=== PATIENT | female | born 1940 | race Caucasian/White ===

== ENCOUNTER 2022-03-21 14:56 | Inpatient (IN) ==
[2022-03-21] MEDS ORDERED: ONDANSETRON INJ 2 MG/ML 2 ML VIAL ONE (15:10)
--- NOTE | 2022-03-21 15:28 | Emergency Department Note ---
Impression & Plan Weakness, Abdominal pain, Confusion, Hypomagnesemia, Nausea & vomiting ED Provider Note Provider: William Whelan MD DATE OF SERVICE: 03/21/2022 CHIEF COMPLAINT: Abdominal pain HISTORY OF PRESENT ILLNESS: Patient is a 82-year-old female with a past medical history including hypertension, CKD, GERD, chronic lung disease, hypothyroidism, diverticulitis presenting today via ambulance from her home. EMS reports there called for difficulty breathing but the patient states she was not feeling that short of breath. EMS states the patient was less responsive for them initially but is now talking more clearly and looking better and was not as pale and diaphoretic as she was initially when they encountered her. Patient states she did not feel well overnight she is generally ill and weak. States she began to feel nauseous and did vomit for EMS and steals a little bit nauseous here. Patient denies any chest pain. She denies any falls. No recent sick contacts reported. Denies leg swelling. Some tenderness in the mid to lower abdomen. Patient states her abdomen feels bloated. Denies headache or dizziness. REVIEW OF SYSTEMS: A total of 10 review of systems was obtained and negative except as stated above in the HPI. PAST MEDICAL HISTORY: As noted above MEDICATIONS: Reviewed home medications SOCIAL HISTORY: and lives alone PHYSICAL EXAM: GENERAL: alert and oriented in no acute distress on stretcher although fatigued appearing Head: normocephalic and atraumatic EYES: No injection, discharge or icterus. PERRL NECK: Trachea midline. Supple. ENT: Mucous membranes pink and moist. LUNGS: Airway patent. No retractions. Breath sounds clear HEART: Regular rate and rhythm. No chest wall tenderness ABDOMEN: Soft with mild mid abdominal discomfort to palpation. No peritonitis. BACK: No bilateral flank tenderness. SKIN: Acyanotic, warm, still mildly damp/diaphoretic EXTREMITIES: Without swelling, tenderness or deformity NEUROLOGICAL: No focal deficits. No aphasia. No facial droop or slurred speech. Normal strength and tone in the extremities. Sensation to gross touch normal. Ambulatory. EK bpm sinus rhythm first-degree AV block. No PVC. No acute ST segment elevation with anterior and inferior T wave inversions. Right bundle branch block is present. QTc 520. In comparison previous from the [facility] on November 04 of this year increased heart rate with anterior T wave inversions now present. CONTINUOUS CARDIAC MONITORING: was ordered and showed a heart rate of 70s-80s bpm in normal sinus rhythm Patient's laboratory studies and imaging reviewed. Differential includes Infection, dehydration, metabolic abnormality, hypo/hyperglycemia, electrolyte disturbance, anemia, hypoxia, cardiac sources, intracerebral event, toxicologic, neurologic, as well as other pathologies. IMPRESSION/MEDICAL DECISION MAKING: Patient with some generalized illness of fatigue overnight and developed maybe little bit of shortness of breath lethargy pale diaphoretic stated with some nausea and vomiting and mid abdominal pain. Abdominal pain is mild in the lower to mid abdomen. Not significantly tender. Denies chest pain at any point. No trauma reported. Denies headache. No real focality to her exam just seemed generally weak. Given some nausea medication and did receive some IV fluid prior to arrival as well as aspirin. Some mild lower abdominal pain. We will complete imaging of the abdomen and she does seem to be a bit hypoxic here in the mid 80s. COVID test was sent as well as imaging of the chest. Given that she is so fatigued even though I do not think this is stroke given lack of focality complete a CT of the head for occult processes such as intracranial bleed. Radiology reports reviewed. No signs of significant electrolyte abnormality or renal dysfunction beyond some mild hypomagnesemia. Given IV supplementation. No significant leukocytosis or anemia on blood work. No thyroid dysfunction or evidence of LFT abnormality. No lactate elevation. Procalcitonin undetectably low leans against bacterial infectious source. Negative COVID test. High-sensitivity troponin reports slightly elevated at 17.8. Again not having active chest pain. Lipase does return somewhat elevated but patient is not classically giving me the severe abdominal pain that I generally see with pancreatitis although she has had some nausea. CT of the head without acute abnormality noted. Chest x-ray reports question some mild pulmonary vascular congestion hiatal hernia. CTs of the chest and abdomen pelvis per radiology with mild dilation of ascending thoracic or to 4 cm but no dissection. Some question of bibasilar pneumonitis versus atelectasis. No findings concerning for bowel obstruction at the hernia or diverticulitis on the imaging per radiology. Exquisitely tender abdomen I doubt this is strangulated. They question possibly a small colovaginal fistula but not sure this is any bearing to her current illness. She does have some renal cysts likely versus lesions as well as some stenosis of the celiac artery but no significant finding to explain her generalized weakness. CT does not comment on any inflammation of the pancreas to correspond with the lipase elevation. Patient does again require little bit oxygen supplementation at this time which is atypical for her at rest. Still having weakness and intermittent nausea. Given this fact she lives alone with her age and unclear etiology feel that further observation is indicated. Patient a little more confused with difficulty getting out of full thoughts and with her memory on reassessment. Family at bedside states this has been on and off for last several days this has happened over the last several months intermittently. She has not previously talked to her doctor about this. Patient was in agreement with the plan to stay for further assessment. Hospitalist contacted. DIAGNOSIS: Weakness, nausea and vomiting, hypomagnesemia, mild hypoxia, confusion, elevated lipase. DISPOSITION: Hospitalist will evaluate Patient was agreeable with this plan. Past Med/Surg History Medical History (Updated 03/21/22 @ 17:37 by William Whelan M.D.) Anxiety Bilateral cataracts Chronic kidney disease Chronic obstructive pulmonary disease Deep vein thrombosis 2011 after knee replacement--no longer on blood thinners Depression GERD (gastroesophageal reflux disease) Gout Hypertension Hypothyroidism Nocturnal hypoxia reason for oxygen On home oxygen therapy 2L hs n/c Spinal stenosis Surgical History (Updated 11/15/18 @ 12:16 by Deanna Adam RN) History of arthroscopy of left knee History of bilateral tubal ligation History of bowel resection History of carpal tunnel release of both wrists History of cholecystectomy History of colonoscopy History of esophagogastroduodenoscopy (EGD) History of tonsillectomy History of tooth extraction all teeth removed History of total abdominal hysterectomy and bilateral salpingo-oophorectomy History of total left knee replacement (TKR) Status post correction of deviated nasal septum Family History Other No family history of adverse response to anesthesia Social History Smoking Status: Never smoker Second Hand Exposure: Yes ( smoked); Hx Alcohol Use: No Hx Substance Use: No Preferred Language: Romanian Communication Ability: Effective [place] Hand Required: No Beliefs That Will Affect Care: None Current Living Situation: Spouse Feels Safe at Home: Yes Assistive Devices: Denture - Upper, Denture - Lower, Oxygen - at Night and Walker Allergies Allergies Allergy/AdvReac Type Severity Reaction Status Date / Time azathioprine Allergy Intermediate HIVES Verified 03/21/22 17:48 gabapentin Allergy Intermediate hives Verified 03/21/22 17:48 hydroxychloroquine Allergy Intermediate HIVES Verified 03/21/22 17:48 ibuprofen Allergy Intermediate HIVES Verified 03/21/22 17:48 methotrexate Allergy Intermediate hives Verified 03/21/22 17:48 minocycline Allergy Intermediate Hives Verified 03/21/22 17:48 NSAIDS (Non-Steroidal Allergy Intermediate Hives Verified 03/21/22 17:48 Anti-Inflamma phenol Allergy Intermediate hives Verified 03/21/22 17:48 risedronate sodium Allergy Intermediate HIVES Verified 03/21/22 17:48 doxepin Allergy Mild HIVES Verified 03/21/22 17:48 leflunomide Allergy Mild HIVES Verified 03/21/22 17:48 sulfasalazine Allergy Mild HIVES Verified 03/21/22 17:48 Tetracyclines Allergy Mild HIVES Verified 03/21/22 17:48 hydromorphone AdvReac Intermediate hallucinate Verified 03/21/22 17:48 couldn't walk or talk teriparatide AdvReac Intermediate MALAISE, Verified 03/21/22 17:48 LOWER LEG EDEMA AMINOQUINOLINE Allergy Intermediate HIVES--PER Uncoded 03/21/22 17:48 GMG Home Meds Home Medications Medication Instructions Recorded Confirmed Lactobacillus acidophilus 1 1 tab PO QAM 11/15/18 11/15/18 billion cell tablet albuterol sulfate 90 mcg/actuation 2 puff inhalation Q4 PRN Shortness 11/15/18 11/15/18 aerosol inhaler (Ventolin HFA) Of Breath amlodipine 5 mg tablet 5 mg PO QAM 11/15/18 11/22/18 ascorbic acid (vitamin C) 500 mg 500 mg PO QAM 11/15/18 11/22/18 tablet (Vitamin C) aspirin 81 mg tablet,delayed 81 mg PO QAM 11/15/18 11/22/18 release calcium carbonate 600 mg-vitamin 1 tab PO BID 11/15/18 11/22/18 D3 5 mcg (200 unit) tablet (Calcium 600 + D(3)) diphenhydramine HCl 25 mg capsule 25 mg PO HS sleep 11/15/18 11/22/18 (Benadryl) duloxetine 30 mg capsule,delayed 30 mg PO QAM 11/15/18 11/22/18 release ergocalciferol (vitamin D2) 10 mcg 2 tab PO QAM 11/15/18 11/22/18 (400 unit) tablet esomeprazole magnesium 40 mg 40 mg PO QAM 11/15/18 11/22/18 capsule,delayed release fluticasone 250 mcg-salmeterol 50 1 inh inhalation BID 11/15/18 11/22/18 mcg/dose blistr powdr for inhalation (Advair Diskus) hydralazine 25 mg tablet 25 mg PO TID 11/15/18 11/22/18 levothyroxine 175 mcg tablet 175 mcg PO QAM 11/15/18 11/22/18 melatonin 5 mg tablet 5 mg PO HS 11/15/18 11/22/18 metoprolol tartrate 25 mg tablet 12.5 mg PO BID 11/15/18 11/22/18 montelukast 10 mg tablet 10 mg PO HS 11/15/18 11/22/18 (Singulair) pregabalin 100 mg capsule (Lyrica) 100 mg PO QAM 11/15/18 11/22/18 pregabalin 100 mg capsule (Lyrica) 200 mg PO QPM 11/15/18 11/22/18 vit C 50 mg-E 15 unit-zinc cit 4.5 1 tab PO QAM 11/15/18 11/22/18 mg-lutein 2.5 mg-zeaxan chew [facility] Results & Data (ED) Vital Signs Vital Signs - 24 hr 03/21/22 15:20 03/21/22 15:05 03/21/22 15:30 Temperature 36.3 C L Temperature Source Oral Pulse Rate 110 H 88 85 Pulse Rate from SpO2 Sensor 84 Respiratory Rate 20 14 14 Respiratory Effort / Characteristics Non-Labored Spontaneous Respiratory Depth Shallow Blood Pressure 169/110 H 208/115 H Blood Pressure Mean 129 146 Pulse Oximetry 86 L 86 L 94 Oxygen Delivery Method Room Air Room Air Nasal Cannula Oxygen Flow Rate 3 Sepsis Recent Fever Within 48 Hours No Sepsis New/Unexplained Change in Mental Status No Sepsis Action Taken by Nursing No Action Required 03/21/22 16:00 03/21/22 16:30 Temperature Temperature Source Pulse Rate 82 84 Pulse Rate from SpO2 Sensor 81 78 Respiratory Rate 16 14 Respiratory Effort / Characteristics Respiratory Depth Blood Pressure Blood Pressure Mean Pulse Oximetry 94 92 Oxygen Delivery Method Oxygen Flow Rate 3 3 Sepsis Recent Fever Within 48 Hours Sepsis New/Unexplained Change in Mental Status Sepsis Action Taken by Nursing Laboratory Data Result diagrams: 03/21/22 15:25 03/21/22 15:25 Lab Results 03/21/22 03/21/22 03/21/22 Range/Units 15:25 15:25 15:25 WBC 5.75 (4.8-10.8) K/ul RBC 4.62 (3.93-5.22) M/uL Hgb 13.5 (12.0-16.0) g/dl POC Hgb (12.0-16.0) g/dl Hct 42.0 (34.1-44.9) % POC Hct (37-47) % MCV 90.9 (80.0-100.0) fL MCH 29.2 (25.0-34.0) pg MCHC 32.1 (32.0-36.0) g/dL RDW Std Deviation 49.5 H (36.4-46.3) fL RDW Coeff of [place]ury 14.9 H (11.5-14.5) % Plt Count 170 (130-400) K/uL MPV 11.9 (9.4-12.3) fL Immature Gran % (Auto) 0.5 % Neut % (Auto) 61.3 % Lymph % (Auto) 19.5 % [place] % (Auto) 10.3 % Eos % (Auto) 7.0 % Baso % (Auto) 1.4 % Neut # (Auto) 3.53 (1.4-6.5) K/uL Lymph # (Auto) 1.12 L (1.2-3.4) K/uL [place] # (Auto) 0.59 (0.24-0.82) K/uL Eos # (Auto) 0.40 (0-0.50) K/uL Baso # (Auto) 0.08 (0-0.2) K/uL Immature Gran # (Auto) 0.03 H (0.00-0.02) K/uL PT Cancelled INR Cancelled POC Sodium (135-144) mmol/L Sodium 142 (136-145) mmol/L POC Potassium (3.3-5.0) mmol/L Potassium 3.6 (3.5-5.1) mmol/L POC Chloride (101-112) mmol/L Chloride 105 (98-107) mmol/L Carbon Dioxide 28 (21-32) mmol/L POC Total CO2 (24-31) mmol/L Anion Gap 9 (3-11) POC Anion Gap (16-25) mmol/L POC BUN (7-18) mg/dl BUN 15 (6-23) mg/dl Creatinine 1.09 (0.6-1.2) mg/dl POC Creatinine (0.6-1.3) mg/dl Est Cr Clr Drug Dosing Not Reportable Est GFR ( Amer) 55.5 ml/min Est GFR (Non-Af Amer) 47.9 ml/min BUN/Creatinine Ratio 13.8 (10-20) Glucose 112 H (70-99(Fasting)) mg/dl POC Glucose (other) (70-99) mg/dl Lactate (0.4-2.0) mmol/L Calcium 9.7 (8.5-10.1) mg/dl POC Ioniz Calcium Diamond (1.12-1.32) mmol/l Magnesium 1.6 L (1.7-2.4) mg/dl Total Bilirubin 0.9 (0.2-1.0) mg/dl AST 13 (13-39) U/L ALT 10 (7-52) U/L Alkaline Phosphatase 83 (34-104) U/L Troponin I High Sens 17.8 H (0-14) pg/ml Total Protein 6.7 (6.0-8.3) gm/dl Albumin 4.1 (3.4-5.0) gm/dl Globulin 2.6 (2.5-4.0) gm/dl Albumin/Globulin Ratio 1.6 (0.9-2) Lipase (11-82) U/L Procalcitonin (0-0.5) ng/ml TSH (0.300-4.500) uIu/ml SARS-CoV-2, RNA, NAAT (NEGATIVE) 03/21/22 03/21/22 03/21/22 Range/Units 15:25 15:25 15:25 WBC (4.8-10.8) K/ul RBC (3.93-5.22) M/uL Hgb (12.0-16.0) g/dl POC Hgb (12.0-16.0) g/dl Hct (34.1-44.9) % POC Hct (37-47) % MCV (80.0-100.0) fL MCH (25.0-34.0) pg MCHC (32.0-36.0) g/dL RDW Std Deviation (36.4-46.3) fL RDW Coeff of [place]ury (11.5-14.5) % Plt Count (130-400) K/uL MPV (9.4-12.3) fL Immature Gran % (Auto) % Neut % (Auto) % Lymph % (Auto) % [place] % (Auto) % Eos % (Auto) % Baso % (Auto) % Neut # (Auto) (1.4-6.5) K/uL Lymph # (Auto) (1.2-3.4) K/uL [place] # (Auto) (0.24-0.82) K/uL Eos # (Auto) (0-0.50) K/uL Baso # (Auto) (0-0.2) K/uL Immature Gran # (Auto) (0.00-0.02) K/uL PT INR POC Sodium (135-144) mmol/L Sodium (136-145) mmol/L POC Potassium (3.3-5.0) mmol/L Potassium (3.5-5.1) mmol/L POC Chloride (101-112) mmol/L Chloride (98-107) mmol/L Carbon Dioxide (21-32) mmol/L POC Total CO2 (24-31) mmol/L Anion Gap (3-11) POC Anion Gap (16-25) mmol/L POC BUN (7-18) mg/dl BUN (6-23) mg/dl Creatinine (0.6-1.2) mg/dl POC Creatinine (0.6-1.3) mg/dl Est Cr Clr Drug Dosing Est GFR ( Amer) ml/min Est GFR (Non-Af Amer) ml/min BUN/Creatinine Ratio (10-20) Glucose (70-99(Fasting)) mg/dl POC Glucose (other) (70-99) mg/dl Lactate 0.9 (0.4-2.0) mmol/L Calcium (8.5-10.1) mg/dl POC Ioniz Calcium Diamond (1.12-1.32) mmol/l Magnesium (1.7-2.4) mg/dl Total Bilirubin (0.2-1.0) mg/dl AST (13-39) U/L ALT (7-52) U/L Alkaline Phosphatase (34-104) U/L Troponin I High Sens (0-14) pg/ml Total Protein (6.0-8.3) gm/dl Albumin (3.4-5.0) gm/dl Globulin (2.5-4.0) gm/dl Albumin/Globulin Ratio (0.9-2) Lipase (11-82) U/L Procalcitonin < 0.05 (0-0.5) ng/ml TSH 0.877 (0.300-4.500) uIu/ml SARS-CoV-2, RNA, NAAT (NEGATIVE) 03/21/22 03/21/22 03/21/22 Range/Units 15:25 15:32 15:50 WBC (4.8-10.8) K/ul RBC (3.93-5.22) M/uL Hgb (12.0-16.0) g/dl POC Hgb 14.6 (12.0-16.0) g/dl Hct (34.1-44.9) % POC Hct 43 (37-47) % MCV (80.0-100.0) fL MCH (25.0-34.0) pg MCHC (32.0-36.0) g/dL RDW Std Deviation (36.4-46.3) fL RDW Coeff of Nury (11.5-14.5) % Plt Count (130-400) K/uL MPV (9.4-12.3) fL Immature Gran % (Auto) % Neut % (Auto) % Lymph % (Auto) % [place] % (Auto) % Eos % (Auto) % Baso % (Auto) % Neut # (Auto) (1.4-6.5) K/uL Lymph # (Auto) (1.2-3.4) K/uL [place] # (Auto) (0.24-0.82) K/uL Eos # (Auto) (0-0.50) K/uL Baso # (Auto) (0-0.2) K/uL Immature Gran # (Auto) (0.00-0.02) K/uL PT INR POC Sodium 143 (135-144) mmol/L Sodium (136-145) mmol/L POC Potassium 3.6 (3.3-5.0) mmol/L Potassium (3.5-5.1) mmol/L POC Chloride 104 (101-112) mmol/L Chloride (98-107) mmol/L Carbon Dioxide (21-32) mmol/L POC Total CO2 27 (24-31) mmol/L Anion Gap (3-11) POC Anion Gap 17.0 (16-25) mmol/L POC BUN 14 (7-18) mg/dl BUN (6-23) mg/dl Creatinine (0.6-1.2) mg/dl POC Creatinine 1.1 (0.6-1.3) mg/dl Est Cr Clr Drug Dosing Est GFR ( Amer) ml/min Est GFR (Non-Af Amer) ml/min BUN/Creatinine Ratio (10-20) Glucose (70-99(Fasting)) mg/dl POC Glucose (other) 119 H (70-99) mg/dl Lactate (0.4-2.0) mmol/L Calcium (8.5-10.1) mg/dl POC Ioniz Calcium Diamond 1.21 (1.12-1.32) mmol/l Magnesium (1.7-2.4) mg/dl Total Bilirubin (0.2-1.0) mg/dl AST (13-39) U/L ALT (7-52) U/L Alkaline Phosphatase (34-104) U/L Troponin I High Sens (0-14) pg/ml Total Protein (6.0-8.3) gm/dl Albumin (3.4-5.0) gm/dl Globulin (2.5-4.0) gm/dl Albumin/Globulin Ratio (0.9-2) Lipase 499 H (11-82) U/L Procalcitonin (0-0.5) ng/ml TSH (0.300-4.500) uIu/ml SARS-CoV-2, RNA, NAAT NEGATIVE (NEGATIVE) 03/21/22 Range/Units 16:18 WBC (4.8-10.8) K/ul RBC (3.93-5.22) M/uL Hgb (12.0-16.0) g/dl POC Hgb (12.0-16.0) g/dl Hct (34.1-44.9) % POC Hct (37-47) % MCV (80.0-100.0) fL MCH (25.0-34.0) pg MCHC (32.0-36.0) g/dL RDW Std Deviation (36.4-46.3) fL RDW Coeff of [place]ury (11.5-14.5) % Plt Count (130-400) K/uL MPV (9.4-12.3) fL Immature Gran % (Auto) % Neut % (Auto) % Lymph % (Auto) % [place] % (Auto) % Eos % (Auto) % Baso % (Auto) % Neut # (Auto) (1.4-6.5) K/uL Lymph # (Auto) (1.2-3.4) K/uL [place] # (Auto) (0.24-0.82) K/uL Eos # (Auto) (0-0.50) K/uL Baso # (Auto) (0-0.2) K/uL Immature Gran # (Auto) (0.00-0.02) K/uL PT 10.9 INR 1.0 POC Sodium (135-144) mmol/L Sodium (136-145) mmol/L POC Potassium (3.3-5.0) mmol/L Potassium (3.5-5.1) mmol/L POC Chloride (101-112) mmol/L Chloride (98-107) mmol/L Carbon Dioxide (21-32) mmol/L POC Total CO2 (24-31) mmol/L Anion Gap (3-11) POC Anion Gap (16-25) mmol/L POC BUN (7-18) mg/dl BUN (6-23) mg/dl Creatinine (0.6-1.2) mg/dl POC Creatinine (0.6-1.3) mg/dl Est Cr Clr Drug Dosing Est GFR ( Amer) ml/min Est GFR (Non-Af Amer) ml/min BUN/Creatinine Ratio (10-20) Glucose (70-99(Fasting)) mg/dl POC Glucose (other) (70-99) mg/dl Lactate (0.4-2.0) mmol/L Calcium (8.5-10.1) mg/dl POC Ioniz Calcium Diamond (1.12-1.32) mmol/l Magnesium (1.7-2.4) mg/dl Total Bilirubin (0.2-1.0) mg/dl AST (13-39) U/L ALT (7-52) U/L Alkaline Phosphatase (34-104) U/L Troponin I High Sens (0-14) pg/ml Total Protein (6.0-8.3) gm/dl Albumin (3.4-5.0) gm/dl Globulin (2.5-4.0) gm/dl Albumin/Globulin Ratio (0.9-2) Lipase (11-82) U/L Procalcitonin (0-0.5) ng/ml TSH (0.300-4.500) uIu/ml SARS-CoV-2, RNA, NAAT (NEGATIVE) Administered Medications Discontinued Medications Magnesium Sulfate/Dextrose (Magnesium Sulfate / D5w) 1 gm in 100 mls @ 200 mls/hr IV Q30M DEBORAH Stop: 03/21/22 17:14 Last Admin: 03/21/22 17:32 Dose: 200 mls/hr Documented By: Infusion: 03/21/22 16:57 Dose: 0 mls/hr Documented By: Admin: 03/21/22 16:25 Dose: 200 mls/hr Documented By: NIKI Ioversol (Optiray 300 500ml) 106 ml IV ONCE ONE Stop: 03/21/22 15:57 Last Admin: 03/21/22 15:56 Dose: 106 ml Documented By: GUNNER Ondansetron HCl (Ondansetron Inj 2 Mg/Ml 2 Ml Vial) Confirm Administered Dose 4 mg .ROUTE .STK-MED ONE Stop: 03/21/22 15:11 Last Admin: 03/21/22 15:30 Dose: 4 mg Documented By: NIKI Imaging Data Radiologist's Impression: Abdomen/Pelvis CTA 03/21/22 15:20 CHEST CTA, ABDOMEN AND PELVIS CTA for AORTIC DISSECTION CT DOSE: 4518.68 mGy.cm HISTORY: Shortness of breath. Vomiting. Lethargy. Atypical chest pain and generalized abdominal pain. TECHNIQUE: Multiaxial CT images of the chest were performed both before and after the intravenous administration of contrast to evaluate the aorta. Multiaxi al CT images of the abdomen and pelvis were also performed following the intravenous administration of contrast. Maximal intensity projection images of the chest, abdomen, and pelvis were also obtained. A dose lowering technique was utilized adhering to the principles of ALARA. COMPARISON STUDY: None. FINDINGS: Chest CTA: Noncontrast imaging through the chest is no evidence for an intramural hematoma within the thoracic aorta. There is mild calcified plaque within the thoracic aorta. There is mild motion artifact. The ascending thoracic aorta measures up to 4 cm in diameter. Mild calcified plaque within the aortic valve. No evidence for an aortic dissection. There is a tortuous distal descending thoracic aorta. The main pulmonary arteries are patent but dilated. The heart is enlarged. There are mitral annulus calcifications also noted. No pleural or pericardial effusions. No mediastinal or hilar lymphadenopathy. Normal caliber esophagus. There is a large hiatus hernia containing the majority of the stomach and pancreatic tail. No suspicious lytic or blastic osseous lesions. No pneumothorax. The central airways are patent. There are low lung volumes. Bibasilar linear and groundglass densities favor atelectasis. A bibasilar pneumonitis could also have a similar appearance but is considered less likely given the low lung volumes. Abdomen/pelvis CTA: No pneumoperitoneum. No pneumatosis. No acute fractures within the visualized osseous structures. Small fat-containing umbilical hernia. There are 2 adjacent large right periumbilical hernias. One of these contains a short segment of the transverse colon. The other hernia contains fat. Mild thickening of the proximal jejunal loops is likely due to underdistention. Otherwise, no bowel wall thickening or obstruction. Colonic diverticulosis. No evidence for acute diverticulitis. There is a possible tiny colovaginal fistula along the left side of the vaginal cuff which extends to the undersurface of the sigmoid colon. This is best seen on images 416 through 422. Bladder wall thickening is likely due to underdistention. Prior hysterectomy. There is mild pelvic floor collapse. The appendix is not identified and may be surgically absent. The gallbladder appears surgically absent. The liver, pancreas, and adrenal glands are unremarkable. Multiple bilateral renal lesions. These demonstrate varying degrees of density and may represent a combination of hyperdense and simple cysts. Dominant hyperdense lesion within the upper pole of the left kidney measures 5 cm. A 1.4 cm indeterminate hypervascular focus within the spleen on image 157 which could represent a splenic lesion. No retroperitoneal lymphadenopathy. No hydronephrosis. Abdominal aorta is normal in caliber with no evidence for dissection. There is mild calcified plaque within the aorta and iliac arteries. No significant stenosis or occlusion within the iliac or visualized femoral arteries. The inferior mesenteric and superior mesenteric arteries are widely patent. 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 No significant stenosis within the bilateral renal arteries. IMPRESSION: 1. No evidence for an aortic dissection. 2. Mild aneurysmal dilatation of the ascending thoracic aorta measuring 4 cm in diameter. 3. Cardiomegaly. 4. Large hiatus hernia. 5. Bibasilar linear groundglass densities favor atelectasis. A bibasilar pneumonitis could also have a similar appearance but is considered less likely given the low lung volumes. 6. Periumbilical hernias, one of which contains a short segment of the transverse colon. However, no evidence for bowel obstruction. 7. Colonic diverticulosis. No evidence for acute diverticulitis. 8. Possible small colovaginal fistula as described above. 9. 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 10. A few bilateral hyperdense renal lesions with the largest on the left measuring 5 cm. These favor hyperdense cyst. However, a follow-up nonemergent renal ultrasound recommended for confirmation. 11. Additional findings as described above. ACT 112: Negative or not required by law. Electronically signed by: Fredis Montes De Oca M.D. 03/21/2022 5:22 PM Chest CTA 03/21/22 15:20 CHEST CTA, ABDOMEN AND PELVIS CTA for AORTIC DISSECTION CT DOSE: 4518.68 mGy.cm HISTORY: Shortness of breath. Vomiting. Lethargy. Atypical chest pain and ge neralized abdominal pain. TECHNIQUE: Multiaxial CT images of the chest were performed both before and after the intravenous administration of contrast to evaluate the aorta. Multiaxial CT images of the abdomen and pelvis were also performed following the intravenous administration of contrast. Maximal intensity projection images of the chest, abdomen, and pelvis were also obtained. A dose lowering technique was utilized adhering to the principles of ALARA. COMPARISON STUDY: None. FINDINGS: Chest CTA: Noncontrast imaging through the chest is no evidence for an intramural hematoma within the thoracic aorta. There is mild calcified plaque within the thoracic aorta. There is mild motion artifact. The ascending thoracic aorta measures up to 4 cm in diameter. Mild calcified plaque within the aortic valve. No evidence for an aortic dissection. There is a tortuous distal descending thoracic aorta. The main pulmonary arteries are patent but dilated. The heart is enlarged. There are mitral annulus calcifications also noted. No pleural or pericardial effusions. No mediastinal or hilar lymphadenopathy. Normal caliber esophagus. There is a large hiatus hernia containing the majority of the stomach and pancreatic tail. No suspicious lytic or blastic osseous lesions. No pneumothorax. The central airways are patent. There are low lung volumes. Bibasilar linear and groundglass densities favor atelectasis. A bibasilar pneumonitis could also have a similar appearance but is considered les s likely given the low lung volumes. Abdomen/pelvis CTA: No pneumoperitoneum. No pneumatosis. No acute fractures within the visualized osseous structures. Small fat-containing umbilical hernia. There are 2 adjacent large right periumbilical hernias. One of these contains a short segment of the transverse colon. The other hernia contains fat. Mild thickening of the proximal jejunal loops is likely due to underdistention. Otherwise, no bowel wall thickening or obstruction. Colonic diverticulosis. No evidence for acute diverticulitis. There is a possible tiny colovaginal fistula along the left side of the vaginal cuff which extends to the undersurface of the sigmoid colon. This is best seen on images 416 through 422. Bladder wall thickening is likely due to underdistention. Prior hysterectomy. There is mild pelvic floor collapse. The appendix is not identified and may be surgically absent. The gallbladder appears surgically absent. The liver, pancreas, and adrenal glands are unremarkable. Multiple bilateral renal lesions. These demonstrate varying degrees of density and may represent a combination of hyperdense and simple cysts. Dominant hyperdense lesion within the upper pole of the left kidney measures 5 cm. A 1.4 cm indeterminate hypervascular focus within the spleen on image 157 which could represent a splenic lesion. No retroperitoneal lymphadenopathy. No hydronephrosis. Abdominal aorta is normal in caliber with no evidence for dissection. There is mild calcified plaque within the aorta and iliac arteries. No significant stenosis or occlusion within the iliac or visualized femoral arteries. The inferior mesenteric and superior mesenteric arteries are widely patent. 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 No significant stenosis within the bilateral renal arteries. IMPRESSION: 1. No evidence for an aortic dissection. 2. Mild aneurysmal dilatation of the ascending thoracic aorta measuring 4 cm in diameter. 3. Cardiomegaly. 4. Large hiatus hernia. 5. Bibasilar linear groundglass densities favor atelectasis. A bibasilar pneumonitis could also have a similar appearance but is considered less likely given the low lung volumes. 6. Periumbilical hernias, one of which contains a short segment of the transverse colon. However, no evidence for bowel obstruction. 7. Colonic diverticulosis. No evidence for acute diverticulitis. 8. Possible small colovaginal fistula as described above. 9. 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 10. A few bilateral hyperdense renal lesions with the largest on the left measuring 5 cm. These favor hyperdense cyst. However, a follow-up nonemergent renal ultrasound recommended for confirmation. 11. Additional findings as described above. ACT 112: Negative or not required by law. Electronically signed by: Fredis Montes De Oca M.D. 03/21/2022 5:22 PM Chest X-Ray 03/21/22 15:20 XR chest 1V portable HISTORY: weakness COMPARISON: Chest 11/07/2011. FINDINGS: There are low lung volumes. The cardiac silhouette is moderately enlarged. This is similar to the prior study. No pneumothorax. Mild diffuse i nterstitial thickening is noted. There is a large hiatus hernia. No pleural effusions. IMPRESSION: 1. Cardiomegaly with mild central pulmonary vascular congestion without overt edema. 2. Large hiatus hernia. ACT 112: Negative or not required by law. Electronically signed by: Fredis Montes De Oca M.D. 03/21/2022 4:[address] 03/21/22 15:[address] DOSE: HISTORY: weakness, vomiting TECHNIQUE: Multiaxial CT images of the head were performed without the use of intravenous contrast. Automated exposure control was utilized for this study. A dose lowering technique was utilized adhering to the principles of ALARA. Comparison: None. Findings: Mild motion artifact. Trace fluid within the left sphenoid sinus. The mastoid air cells are clear. The calvarium and skull base are intact. There is no mass, hematoma, midline shift, acute infarct. White matter hypodensity is nonspecific but suggestive of microvascular ischemic change. The ventricles and sulci demonstrate mild age-related involutional changes. Impression: No acute intracranial abnormality. ACT 112: Negative or not required by law. Electronically signed by: Fredis Montes De Oca M.D. 03/21/2022 3:54 PM Discharge Plan Visit Data Chief Complaint: Abdominal Pain Stated Complaint: AB PAIN ED Provider: William Whelan Discharge Problem: Weakness, Abdominal pain, Confusion, Hypomagnesemia, Nausea & vomiting Patient Disposition: Being Evaluated by Hospitalist Forms Stand Alone Forms: My [facility] Prescriptions Prescriptions: No Action diphenhydramine HCl [Benadryl] 25 mg Capsule 25 mg PO HS levothyroxine 175 mcg Tablet 175 mcg PO QAM fluticasone propion-salmeterol [Advair Diskus] 250-50 mcg/dose Blister With Device 1 inh INHALATION BID ergocalciferol (vitamin D2) 400 unit Tablet 2 tab PO QAM hydralazine 25 mg Tablet 25 mg PO TID amlodipine 5 mg Tablet 5 mg PO QAM calcium carbonate-vitamin D3 [Calcium 600 + D(3)] 600 mg(1,500mg) -200 unit Tablet 1 tab PO BID aspirin 81 mg Tablet,Delayed Release (Dr/Ec) 81 mg PO QAM ascorbic acid (vitamin C) [Vitamin C] 500 mg Tablet 500 mg PO QAM esomeprazole magnesium 40 mg Capsule,Delayed Release(Dr/Ec) 40 mg PO QAM montelukast [Singulair] 10 mg Tablet 10 mg PO HS albuterol sulfate [Ventolin HFA] 90 mcg/actuation Hfa Aerosol Inhaler 2 puff INHALATION Q4 PRN (Reason: Shortness Of Breath) metoprolol tartrate 25 mg Tablet 12.5 mg PO BID duloxetine 30 mg Capsule,Delayed Release(Dr/Ec) 30 mg PO QAM Lactobacillus acidophilus 1 billion cell Tablet 1 tab PO QAM Lyrica 100 mg Capsule 100 mg PO QAM Lyrica 100 mg Capsule 200 mg PO QPM melatonin 5 mg Tablet 5 mg PO HS Ocuvite Eye Health 50 mg-15 unit- 4.5 mg-2.5 mg Tablet,Chewable 1 tab PO QAM Referrals Referrals: Keegan Rapp MD [Outside Practitioners] - : Abdominal pain Qualifiers: Abdominal location: periumbilical Qualified Code(s): R10.33 - Periumbilical pain Nausea & vomiting Qualifiers: Vomiting type: unspecified Qualified Code(s): R11.2 - Nausea with vomiting, unspecified
[2022-03-21 15:40] LABS: Basophils # (auto) 0.08 K/uL (0-0.2); Basophils % (auto) 1.4 %; Hemoglobin 13.5 g/dl (12.0-16.0); Immature Granulocytes # (auto) 0.03 K/uL (0.00-0.02); Immature Granulocytes % (auto) 0.5 %; Lymphocytes # (auto) 1.12 K/uL (1.2-3.4); Lymphocytes % (auto) 19.5 %; Mean Corpuscular Hemoglobin 29.2 pg (25.0-34.0); Mean Corpuscular Hgb Conc 32.1 g/dL (32.0-36.0); Mean Corpuscular Volume 90.9 fL (80.0-100.0); Mean Platelet Volume 11.9 fL (9.4-12.3); Monocytes # (auto) 0.59 K/uL (0.24-0.82); Monocytes % (auto) 10.3 %; Neutrophils # (auto) 3.53 K/uL (1.4-6.5); Neutrophils % (auto) 61.3 %; Platelet Count 170 K/uL (130-400); RDW Coefficient of Variation 14.9 % (11.5-14.5); RDW Standard Deviation 49.5 fL (36.4-46.3); Red Blood Count 4.62 M/uL (3.93-5.22); White Blood Count 5.75 K/ul (4.8-10.8)
[2022-03-21 15:44] LABS: iSTAT Creatinine 1.1 mg/dl (0.6-1.3); iSTAT Hemoglobin 14.6 g/dl (12.0-16.0); iSTAT Ionized Calcium 1.21 mmol/l (1.12-1.32); iSTAT Potassium 3.6 mmol/L (3.3-5.0)
[2022-03-21] MEDS ORDERED: OPTIRAY 300 500mL IV ONE (15:56)
--- NOTE | 2022-03-21 16:02 | CT Scan Report ---
HEAD CT NONCONTRAST CT DOSE: HISTORY: weakness, vomiting TECHNIQUE: Multiaxial CT images of the head were performed without the use of intravenous contrast. A utomated exposure control was utilized for this study. A dose lowering technique was utilized adheri ng to the principles of ALARA. Comparison: None. Findings: Mild motion artifact. Trace fluid within the left sphenoid sinus. The mastoid air cells are clear. The calvarium and skull base are intact. There is no mass, hematoma, midline shift, acute inf arct. White matter hypodensity is nonspecific but suggestive of microvascular ischemic change. The ve ntricles and sulci demonstrate mild age-related involutional changes. Impression: No acute intracranial abnormality. ACT 112: Negative or not required by law. Electronically signed by: Fredis Montes De Oca M.D. 03/21/2022 3:54 PM
[2022-03-21 16:04] LABS: Alanine Aminotransferase 10 U/L (7-52); Albumin Globulin Ratio 1.6 (0.9-2); Albumin Level 4.1 gm/dl (3.4-5.0); Alkaline Phosphatase 83 U/L (34-104); Anion Gap 9 (3-11); Aspartate Aminotransferase 13 U/L (13-39); BUN Creatinine Ratio 13.8 (10-20); Bilirubin,Total 0.9 mg/dl (0.2-1.0); Blood Urea Nitrogen 15 mg/dl (6-23); Calcium 9.7 mg/dl (8.5-10.1); Carbon Dioxide 28 mmol/L (21-32); Chloride 105 mmol/L (98-107); Est GFR (African American) 55.5 ml/min; Est GFR (Non-African American) 47.9 ml/min; Globulin 2.6 gm/dl (2.5-4.0); Glucose 112 mg/dl (70-99(Fasting)); Magnesium 1.6 mg/dl (1.7-2.4); Potassium 3.6 mmol/L (3.5-5.1); Sodium 142 mmol/L (136-145); Total Protein 6.7 gm/dl (6.0-8.3)
--- NOTE | 2022-03-21 16:20 | XRay Report ---
XR chest 1V portable HISTORY: weakness COMPARISON: Chest 11/07/2011. FINDINGS: There are low lung volumes. The cardiac silhouette is moderately enlarged. This is similar to the prior study. No pneumothorax. Mild diffuse interstitial thickening is noted. There is a large hiatus hernia. No pleural effusions. IMPRESSION: 1. Cardiomegaly with mild central pulmonary vascular congestion without overt edema. 2. Large hiatus hernia. ACT 112: Negative or not required by law. Electronically signed by: Fredis Montes De Oca M.D. 03/21/2022 4:18 PM
[2022-03-21] MEDS: MAGNESIUM SULFATE / D5W 1 GM/100 ML BAG IV SCH ×2 (16:25→17:32)
[2022-03-21 16:38] LABS: Prothrombin Time 10.9 Seconds (9.0-12.0)
[2022-03-21 17:14] LABS: Troponin I High Sensitivity 17.8 pg/ml (0-14)
--- NOTE | 2022-03-21 17:24 | CT Scan Report ---
CHEST CTA, ABDOMEN AND PELVIS CTA for AORTIC DISSECTION CT DOSE: 4518.68 mGy.cm HISTORY: Shortness of breath. Vomiting. Lethargy. Atypical chest pain and generalized abdominal pain. TECHNIQUE: Multiaxial CT images of the chest were performed both before and after the intravenous adm inistration of contrast to evaluate the aorta. Multiaxial CT images of the abdomen and pelvis were al so performed following the intravenous administration of contrast. Maximal intensity projection image s of the chest, abdomen, and pelvis were also obtained. A dose lowering technique was utilized adher ing to the principles of ALARA. COMPARISON STUDY: None. FINDINGS: Chest CTA: Noncontrast imaging through the chest is no evidence for an intramural hematoma within the thoracic aorta. There is mild calcified plaque within the thoracic aorta. There is mild motion artif act. The ascending thoracic aorta measures up to 4 cm in diameter. Mild calcified plaque within the a ortic valve. No evidence for an aortic dissection. There is a tortuous distal descending thoracic aor ta. The main pulmonary arteries are patent but dilated. The heart is enlarged. There are mitral annul us calcifications also noted. No pleural or pericardial effusions. No mediastinal or hilar lymphadeno terell. Normal caliber esophagus. There is a large hiatus hernia containing the majority of the stomac h and pancreatic tail. No suspicious lytic or blastic osseous lesions. No pneumothorax. The central a irways are patent. There are low lung volumes. Bibasilar linear and groundglass densities favor atele ctasis. A bibasilar pneumonitis could also have a similar appearance but is considered less likely gi carla the low lung volumes. Abdomen/pelvis CTA: No pneumoperitoneum. No pneumatosis. No acute fractures within the visualized oss eous structures. Small fat-containing umbilical hernia. There are 2 adjacent large right periumbilica l hernias. One of these contains a short segment of the transverse colon. The other hernia contains f at. Mild thickening of the proximal jejunal loops is likely due to underdistention. Otherwise, no bow el wall thickening or obstruction. Colonic diverticulosis. No evidence for acute diverticulitis. Ther e is a possible tiny colovaginal fistula along the left side of the vaginal cuff which extends to the undersurface of the sigmoid colon. This is best seen on images 416 through 422. Bladder wall thicken ing is likely due to underdistention. Prior hysterectomy. There is mild pelvic floor collapse. The ap pendix is not identified and may be surgically absent. The gallbladder appears surgically absent. The liver, pancreas, and adrenal glands are unremarkable. Multiple bilateral renal lesions. These demons trate varying degrees of density and may represent a combination of hyperdense and simple cysts. Ghislaine nant hyperdense lesion within the upper pole of the left kidney measures 5 cm. A 1.4 cm indeterminate hypervascular focus within the spleen on image 157 which could represent a splenic lesion. No retrop eritoneal lymphadenopathy. No hydronephrosis. Abdominal aorta is normal in caliber with no evidence for dissection. There is mild calcified plaque within the aorta and iliac arteries. No significant stenosis or occlusion within the iliac or visuali zed femoral arteries. The inferior mesenteric and superior mesenteric arteries are widely patent. Foc al moderate stenosis at the takeoff of the celiac artery of approximately 60%. No significant stenosi s within the bilateral renal arteries. IMPRESSION: 1. No evidence for an aortic dissection. 2. Mild aneurysmal dilatation of the ascending thoracic aorta measuring 4 cm in diameter. 3. Cardiomegaly. 4. Large hiatus hernia. 5. Bibasilar linear groundglass densities favor atelectasis. A bibasilar pneumonitis could also have a similar appearance but is considered less likely given the low lung volumes. 6. Periumbilical hernias, one of which contains a short segment of the transverse colon. However, no evidence for bowel obstruction. 7. Colonic diverticulosis. No evidence for acute diverticulitis. 8. Possible small colovaginal fistula as described above. 9. 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 10. A few bilateral hyperdense renal lesions with the largest on the left measuring 5 cm. These favor hyperdense cyst. However, a follow-up nonemergent renal ultrasound recommended for confirmation. 11. Additional findings as described above. ACT 112: Negative or not required by law. Electronically signed by: Fredis Montes De Oca M.D. 03/21/2022 5:22 PM
[2022-03-21] MEDS ORDERED: ONDANSETRON INJ 2 MG/ML 2 ML VIAL IV STA (17:36)
[2022-03-21] MEDS ORDERED: LACTATED RINGER'S 1,000 ML IV SCH (18:30)
--- NOTE | 2022-03-21 18:47 | History & Physical Report ---
Date of Service March 21, 2022 Assessment & Plan (1) Gastroenteritis: (2) Hypomagnesemia: (3) Nausea & vomiting: (4) Abdominal pain: (5) Hypoxia: (6) Community acquired pneumonia: Plan Patient is a 82-year-old female with past medical history of hypertension, hyperlipidemia, gout, arthritis, morbid obesity, hiatal hernia, abdominal hernia presents to the ED with complaint of abdominal pain, nausea and vomiting starting in the afternoon. Gastroenteritis Nausea/Vomiting Acute hypoxic respiratory Failure likely due to pneumonia Renal cysts Hypomagnesemia Presents with nausea vomiting and epigastric pain Had leftover burger last night CT abdomen remarkable for hiatal hernia, abdominal hernia with no bowel obstruction, multiple renal cyst Labs remarkable for elevated lipase, magnesium of 1.6 Plan; Will give GI cocktail for gastroenteritis. Also started on Protonix twice daily .started on clear liquid diet and will advance as tolerated. Start on gentle IV hydration; crackles present at lung bases Will start on ceftriaxone for possible pneumonia. Obtain urine analysis and reflex to culture Will obtain renal ultrasound for renal cyst Chronic issues: Hypertensioncontinue on metoprolol, amlodipine, lisinopril Hyperlipidemia- continue on Lipitor Hypothyroidism- continue on levothyroxine Gout- continue on allopurinol and prednisone Code- full DVT- heparin Admission and Anticipated Discharge Date Admission Date: 03/21/2022 History of Present Illness Chief Complaint: Epigastric pain for 1 day Nausea vomiting for 1 day Primary Care Provider: Xavier Zavala MD Patient is a 82-year-old female with past medical history of hypertension, hyperlipidemia, gout, arthritis, morbid obesity, hiatal hernia, abdominal hernia presents to the ED with complaint of abdominal pain, nausea and vomiting starting in the afternoon. Patient also complains that she was not feeling well last night and could not get enough sleep. She said she was feeling hot but did not have a fever or chills. The abdominal pain is in epigastric region, nonradiating and burning type in nature. She had multiple episode of nausea and vomiting containing food particle; no blood. She said she had leftover burger that she ate yesterday. She denies any diarrhea, urinary urgency, increased frequency or burning micturition. She denies any chest pain, shortness of breath, weakness or numbness of any body parts, visual disturbances or headache. The patient reports that she has some word finding difficulties and is slow to response; family also noticed the same. Patient also has not taken her morning omeprazole. Patient lives by herself; walks with a walker. She is a former smoker, does not drink alcohol or other [id number]-til-[id number] drugs.Her past medical history significant for gout for which she is on allopurinol and prednisone. She is also on antihypertensives for her blood pressure, Lipitor for hyperlipidemia. She had multiple surgeries including cholecystectomy and total abdominal hysterectomy in the past. On arrival to the ED, patient was hypertensive, hypoxic with 86% saturation room air and afebrile. Her labs were remarkable for hypomagnesemia with magnesium of 1.6, high since troponin of 17.8 and lipase of 499. Lactate was unremarkable. 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 head was unremarkable for any findings. Allergies Allergy/AdvReac Type Severity Reaction Status Date / Time azathioprine Allergy Intermediate HIVES Verified 03/21/22 17:48 gabapentin Allergy Intermediate hives Verified 03/21/22 17:48 hydroxychloroquine Allergy Intermediate HIVES Verified 03/21/22 17:48 ibuprofen Allergy Intermediate HIVES Verified 03/21/22 17:48 methotrexate Allergy Intermediate hives Verified 03/21/22 17:48 minocycline Allergy Intermediate Hives Verified 03/21/22 17:48 NSAIDS (Non-Steroidal Allergy Intermediate Hives Verified 03/21/22 17:48 Anti-Inflamma phenol Allergy Intermediate hives Verified 03/21/22 17:48 risedronate sodium Allergy Intermediate HIVES Verified 03/21/22 17:48 doxepin Allergy Mild HIVES Verified 03/21/22 17:48 leflunomide Allergy Mild HIVES Verified 03/21/22 17:48 sulfasalazine Allergy Mild HIVES Verified 03/21/22 17:48 Tetracyclines Allergy Mild HIVES Verified 03/21/22 17:48 hydromorphone AdvReac Intermediate hallucinate Verified 03/21/22 17:48 couldn't walk or talk teriparatide AdvReac Intermediate MALAISE, Verified 03/21/22 17:48 LOWER LEG EDEMA AMINOQUINOLINE Allergy Intermediate HIVES--PER Uncoded 03/21/22 17:48 GMG Home Medications Medication Instructions Recorded Confirmed Type Lactobacillus acidophilus 1 1 tab PO QAM 11/15/18 03/21/22 History billion cell tablet albuterol sulfate 90 mcg/actuation 2 puff inhalation Q4 PRN Shortness 11/15/18 03/21/22 History aerosol inhaler (Ventolin HFA) Of Breath amlodipine 5 mg tablet 5 mg PO QAM 11/15/18 03/21/22 History ascorbic acid (vitamin C) 500 mg 500 mg PO QAM 11/15/18 03/21/22 History tablet (Vitamin C) aspirin 81 mg tablet,delayed 81 mg PO QAM 11/15/18 03/21/22 History release calcium carbonate 600 mg-vitamin 1 tab PO QAM 11/15/18 03/21/22 History D3 5 mcg (200 unit) tablet (Calcium 600 + D(3)) duloxetine 30 mg capsule,delayed 30 mg PO QAM 11/15/18 03/21/22 History release ergocalciferol (vitamin D2) 10 mcg 1 tab PO QAM 11/15/18 03/21/22 History (400 unit) tablet melatonin 5 mg tablet 5 mg PO HS 11/15/18 03/21/22 History metoprolol tartrate 25 mg tablet 12.5 mg PO BID 11/15/18 03/21/22 History montelukast 10 mg tablet 10 mg PO HS 11/15/18 03/21/22 History (Singulair) pregabalin 100 mg capsule (Lyrica) See Rx Instructions .Route .COMPLEX 11/15/18 03/21/22 History vit C 50 mg-E 15 unit-zinc cit 4.5 1 tab PO QAM 11/15/18 03/21/22 History mg-lutein 2.5 mg-zeaxan chew tablet (LeukoDx Eye [facility]) albuterol sulfate 2.5 mg/3 mL 2.5 mg inhalation DIRECTED PRN 03/21/22 03/21/22 History (0.083 %) solution for nebulization Shortness Of Breath Or Wheezing allopurinol 100 mg tablet 200 mg PO QAM 03/21/22 03/21/22 History atorvastatin 20 mg tablet 20 mg PO QAM 03/21/22 03/21/22 History docusate sodium 100 mg capsule 100 mg PO BID 03/21/22 03/21/22 History fluticasone propionate 230 2 puff inhalation BID 03/21/22 03/21/22 History mcg-salmeterol 21 mcg/actuation HFA inhaler (Advair HFA) iron,carbonyl 65 mg-vitamin C 125 1 tab PO 3XWK 03/21/22 03/21/22 History mg tablet,delayed release (Vitron-C) levothyroxine 150 mcg tablet 150 mcg PO DAILYBB 03/21/22 03/21/22 History lisinopril 20 mg tablet 20 mg PO QAM 03/21/22 03/21/22 History omeprazole 40 mg capsule,delayed 40 mg PO DAILYBB 03/21/22 03/21/22 History release prednisone 5 mg tablet 5 mg PO QAM 03/21/22 03/21/22 History sennosides 8.6 mg capsule (senna) 8.6 mg PO BID PRN Constipation 03/21/22 03/21/22 History Past Med/Surg History Medical History (Updated 03/21/22 @ 19:02 by Rm Avilez MD) Anxiety Bilateral cataracts Chronic kidney disease Chronic obstructive pulmonary disease Deep vein thrombosis 2011 after knee replacement--no longer on blood thinners Depression GERD (gastroesophageal reflux disease) Gout Hypertension Hypothyroidism Nocturnal hypoxia reason for oxygen On home oxygen therapy 2L hs n/c Spinal stenosis Surgical History (Updated 11/15/18 @ 12:16 by Deanna Adam RN) History of arthroscopy of left knee History of bilateral tubal ligation History of bowel resection History of carpal tunnel release of both wrists History of cholecystectomy History of colonoscopy History of esophagogastroduodenoscopy (EGD) History of tonsillectomy History of tooth extraction all teeth removed History of total abdominal hysterectomy and bilateral salpingo-oophorectomy History of total left knee replacement (TKR) Status post correction of deviated nasal septum Family History Other No family history of adverse response to anesthesia Social History Smoking Status: Never smoker Second Hand Exposure: Yes ( smoked); Hx Alcohol Use: No Hx Substance Use: No Preferred Language: Guamanian Communication Ability: Effective Window Dresser Required: No Beliefs That Will Affect Care: None Current Living Situation: Spouse Feels Safe at Home: Yes Assistive Devices: Denture - Upper, Denture - Lower, Oxygen - at Night and Walker Physical Exam Physical Exam: Constitutional: Awake, alert, in mild distress due to abdominal pain. Respiratory: Bilateral basal crackles heard Cardiovascular: S1-S2, no murmur Chest: normal inspection of chest Abdomen: Abdomen is soft, slightly tender on deep palpation on epigastric region, bowel sound present. Musculoskeletal: no cyanosis or clubbing, extremities motor strength 5/5 Skin: no rashes, warm and dry normal turgor Neurologic: PERRL, EOMI, accommodation nl, no face palsy, no dysarthria CN's II- XI intact bilaterally and moves all extremities Psychiatric: A+Ox3, euthymic affect : deferred Results & Data Results & Data ([facility]) Vital Signs (Past 12 Hours) Vital Signs Temp Pulse Resp BP Pulse Ox O2 Del Method O2 Flow Rate 03/21/22 16:30 84 14 92 3 03/21/22 16:00 82 16 94 3 03/21/22 15:30 85 14 94 Nasal Cannula 3 03/21/22 15:05 88 14 208/115 H 86 L Room Air 03/21/22 15:20 36.3 C L 110 H 20 169/110 H 86 L Room Air Laboratory Results Laboratory Results WBC 5.75 K/ul (4.8-10.8) 03/21/22 15:25 RBC 4.62 M/uL (3.93-5.22) 03/21/22 15:25 Hgb 13.5 g/dl (12.0-16.0) 03/21/22 15:25 POC Hgb 14.6 g/dl (12.0-16.0) 03/21/22 15:32 Hct 42.0 % (34.1-44.9) 03/21/22 15:25 POC Hct 43 % (37-47) 03/21/22 15:32 MCV 90.9 fL (80.0-100.0) 03/21/22 15:25 MCH 29.2 pg (25.0-34.0) 03/21/22 15:25 MCHC 32.1 g/dL (32.0-36.0) 03/21/22 15:25 RDW Std Deviation 49.5 fL (36.4-46.3) H 03/21/22 15:25 RDW Coeff of Nury 14.9 % (11.5-14.5) H 03/21/22 15:25 Plt Count 170 K/uL (130-400) 03/21/22 15:25 MPV 11.9 fL (9.4-12.3) 03/21/22 15:25 Immature Gran % (Auto) 0.5 % 03/21/22 15:25 Neut % (Auto) 61.3 % 03/21/22 15:25 Lymph % (Auto) 19.5 % 03/21/22 15:25 Martin % (Auto) 10.3 % 03/21/22 15:25 Eos % (Auto) 7.0 % 03/21/22 15:25 Baso % (Auto) 1.4 % 03/21/22 15:25 Neut # (Auto) 3.53 K/uL (1.4-6.5) 03/21/22 15:25 Lymph # (Auto) 1.12 K/uL (1.2-3.4) L 03/21/22 15:25 Martin # (Auto) 0.59 K/uL (0.24-0.82) 03/21/22 15:25 Eos # (Auto) 0.40 K/uL (0-0.50) 03/21/22 15:25 Baso # (Auto) 0.08 K/uL (0-0.2) 03/21/22 15:25 Immature Gran # (Auto) 0.03 K/uL (0.00-0.02) H 03/21/22 15:25 PT 10.9 Seconds (9.0-12.0) 03/21/22 16:18 INR 1.0 (0.9-1.1) 03/21/22 16:18 POC Sodium 143 mmol/L (135-144) 03/21/22 15:32 Sodium 142 mmol/L (136-145) 03/21/22 15:25 POC Potassium 3.6 mmol/L (3.3-5.0) 03/21/22 15:32 Potassium 3.6 mmol/L (3.5-5.1) 03/21/22 15:25 POC Chloride 104 mmol/L (101-112) 03/21/22 15:32 Chloride 105 mmol/L (98-107) 03/21/22 15:25 Carbon Dioxide 28 mmol/L (21-32) 03/21/22 15:25 POC Total CO2 27 mmol/L (24-31) 03/21/22 15:32 Anion Gap 9 (3-11) 03/21/22 15:25 POC Anion Gap 17.0 mmol/L (16-25) 03/21/22 15:32 POC BUN 14 mg/dl (7-18) 03/21/22 15:32 BUN 15 mg/dl (6-23) 03/21/22 15:25 Creatinine 1.09 mg/dl (0.6-1.2) 03/21/22 15:25 POC Creatinine 1.1 mg/dl (0.6-1.3) 03/21/22 15:32 Est Cr Clr Drug Dosing Not Reportable 03/21/22 15:25 Est GFR ( Amer) 55.5 ml/min 03/21/22 15:25 Est GFR (Non-Af Amer) 47.9 ml/min 03/21/22 15:25 BUN/Creatinine Ratio 13.8 (10-20) 03/21/22 15:25 Glucose 112 mg/dl (70-99(Fasting)) H 03/21/22 15:25 POC Glucose (other) 119 mg/dl (70-99) H 03/21/22 15:32 Lactate 0.9 mmol/L (0.4-2.0) 03/21/22 15:25 Calcium 9.7 mg/dl (8.5-10.1) 03/21/22 15:25 POC Ioniz Calcium Diamond 1.21 mmol/l (1.12-1.32) 03/21/22 15:32 Magnesium 1.6 mg/dl (1.7-2.4) L 03/21/22 15:25 Total Bilirubin 0.9 mg/dl (0.2-1.0) 03/21/22 15:25 AST 13 U/L (13-39) 03/21/22 15:25 ALT 10 U/L (7-52) 03/21/22 15:25 Alkaline Phosphatase 83 U/L (34-104) 03/21/22 15:25 Troponin I High Sens 17.8 pg/ml (0-14) H 03/21/22 15:25 Total Protein 6.7 gm/dl (6.0-8.3) 03/21/22 15:25 Albumin 4.1 gm/dl (3.4-5.0) 03/21/22 15:25 Globulin 2.6 gm/dl (2.5-4.0) 03/21/22 15:25 Albumin/Globulin Ratio 1.6 (0.9-2) 03/21/22 15:25 Lipase 499 U/L (11-82) H 03/21/22 15:25 Procalcitonin < 0.05 ng/ml (0-0.5) 03/21/22 15:25 TSH 0.877 uIu/ml (0.300-4.500) 03/21/22 15:25 SARS-CoV-2, RNA, NAAT NEGATIVE (NEGATIVE) 03/21/22 15:50 Impressions Abdomen/Pelvis CTA 03/21/22 15:20 CHEST CTA, ABDOMEN AND PELVIS CTA for AORTIC DISSECTION CT DOSE: 4518.68 mGy.cm HISTORY: Shortness of breath. Vomiting. Lethargy. Atypical chest pain and generalized abdominal pain. TECHNIQUE: Multiaxial CT images of the chest were performed both before and after the intravenous administration of contrast to evaluate the aorta. Multiaxial CT images of the abdomen and pelvis were also performed following the intravenous administration of contrast. Maximal intensity projection images of the chest, abdomen, and pelvis were also obtained. A dose lowering technique was utilized adhering to the principles of ALARA. COMPARISON STUDY: None. FINDINGS: Chest CTA: Noncontrast imaging through the chest is no evidence for an intramural hematoma within the thoracic aorta. There is mild calcified plaque within the thoracic aorta. There is mild motion artifact. The ascending thoracic aorta measures up to 4 cm in diameter. Mild calcified plaque within the aortic valve. No evidence for an aortic dissection. There is a tortuous distal descending thoracic aorta. The main pulmonary arteries are patent but dilated. The heart is enlarged. There are mitral annulus calcifications also noted. No pleural or pericardial effusions. No mediastinal or hilar lymphadenopathy. Normal caliber esophagus. There is a large hiatus hernia containing the majority of the stomach and pancreatic tail. No suspicious lytic or blastic osseous lesions. No pneumothorax. The central airways are patent. There are low lung v olumes. Bibasilar linear and groundglass densities favor atelectasis. A bibasilar pneumonitis could also have a similar appearance but is considered less likely given the low lung volumes. Abdomen/pelvis CTA: No pneumoperitoneum. No pneumatosis. No acute fractures within the visualized osseous structures. Small fat-containing umbilical hernia. There are 2 adjacent large right periumbilical hernias. One of these contains a short segment of the transverse colon. The other hernia contains fat. Mild thickening of the proximal jejunal loops is likely due to underdistention. Otherwise, no bowel wall thickening or obstruction. Colonic diverticulosis. No evidence for acute diverticulitis. There is a possible tiny colovaginal fistula along the left side of the vaginal cuff which extends to the undersurface of the sigmoid colon. This is best seen on images 416 through 422. Bladder wall thickening is likely due to underdistention. Prior hysterectomy. There is mild pelvic floor collapse. The appendix is not identified and may be surgically absent. The gallbladder appears surgically absent. The liver, pancreas, and adrenal glands are unremarkable. Multiple bilateral renal lesions. These demon strate varying degrees of density and may represent a combination of hyperdense and simple cysts. Dominant hyperdense lesion within the upper pole of the left kidney measures 5 cm. A 1.4 cm indeterminate hypervascular focus within the spleen on image 157 which could represent a splenic lesion. No retroperitoneal lymphadenopathy. No hydronephrosis. Abdominal aorta is normal in caliber with no evidence for dissection. There is mild calcified plaque within the aorta and iliac arteries. No significant stenosis or occlusion within the iliac or visualized femoral arteries. The inferior mesenteric and superior mesenteric arteries are widely patent. 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 No significant stenosis within the bilateral renal arteries. IMPRESSION: 1. No evidence for an aortic dissection. 2. Mild aneurysmal dilatation of the ascending thoracic aorta measuring 4 cm in diameter. 3. Cardiomegaly. 4. Large hiatus hernia. 5. Bibasilar linear groundglass densities favor atelectasis. A bibasilar pneumonitis could also have a similar appearance but is considered less likely given the low lung volumes. 6. Periumbilical hernias, one of which contains a short segment of the transverse colon. However, no evidence for bowel obstruction. 7. Colonic diverticulosis. No evidence for acute diverticulitis. 8. Possible small colovaginal fistula as described above. 9. 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 10. A few bilateral hyperdense renal lesions with the largest on the left measuring 5 cm. These favor hyperdense cyst. However, a follow-up nonemergent renal ultrasound recommended for confirmation. 11. Additional findings as described above. ACT 112: Negative or not required by law. Electronically signed by: Fredis Montes De Oca M.D. 03/21/2022 5:22 PM Chest CTA 03/21/22 15:20 CHEST CTA, ABDOMEN AND PELVIS CTA for AORTIC DISSECTION CT DOSE: 4518.68 mGy.cm HISTORY: Shortness of breath. Vomiting. Lethargy. Atypical chest pain and generalized abdominal pain. TECHNIQUE: Multiaxial CT images of the chest were performed both before and after the intravenous administration of contrast to evaluate the aorta. Multiaxial CT images of the abdomen and pelvis were also performed following the intravenous administration of contrast. Maximal intensity projection images of the chest, abdomen, and pelvis were also obtained. A dose lowering technique was utilized adhering to the principles of ALARA. COMPARISON STUDY: None. FINDINGS: Chest CTA: Noncontrast imaging through the chest is no evidence for an intramural hematoma within the thoracic aorta. There is mild calcified plaque within the thoracic aorta. There is mild motion artifact. The ascending thoracic aorta measures up to 4 cm in diameter. Mild calcified plaque within the aortic valve. No evidence for an aortic dissection. There is a tortuous distal descending thoracic aorta. The main pulmonary arteries are patent but dilated. The heart is enlarged. There are mitral annulus calcifications also noted. No pleural or pericardial effusions. No mediastinal or hilar lymphadenopathy. Normal caliber esophagus. There is a large hiatus hernia containing the majority of the stomach and pancreatic tail. No suspicious lytic or blastic osseous lesions. No pneumothorax. The central airways are patent. There are low lung volumes. Bibasilar linear and groundglass densities favor atelectasis. A bibasilar pneumonitis could also have a similar appearance but is considered less likely given the low lung volumes. Abdomen/pelvis CTA: No pneumoperitoneum. No pneumatosis. No acute fractures within the visualized osseous structures. Small fat-containing umbilical hernia. There are 2 adjacent large right periumbilical hernias. One of these contains a short segment of the transverse colon. The other hernia contains fat. Mild thickening of the proximal jejunal loops is likely due to underdistention. Other alfonso, no bowel wall thickening or obstruction. Colonic diverticulosis. No evidence for acute diverticulitis. There is a possible tiny colovaginal fistula along the left side of the vaginal cuff which extends to the undersurface of the sigmoid colon. This is best seen on images 416 through 422. Bladder wall thickening is likely due to underdistention. Prior hysterectomy. There is mild pelvic floor collapse. The appendix is not identified and may be surgically absent. The gallbladder appears surgically absent. The liver, pancreas, and adrenal glands are unremarkable. Multiple bilateral renal lesions. These demonstrate varying degrees of density and may represent a combination of hyperdense and simple cysts. Dominant hyperdense lesion within the upper pole of the left kidney measures 5 cm. A 1.4 cm indeterminate hypervascular focus within the spleen on image 157 which could represent a splenic lesion. No retroperitoneal lymphadenopathy. No hydronephrosis. Abdominal aorta is normal in caliber with no evidence for dissection. There is mild calcified plaque within the aorta and iliac arteries. No significant stenosis or occlusion within the iliac or visualized femoral arteries. The inf erior mesenteric and superior mesenteric arteries are widely patent. 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 No significant stenosis within the bilateral renal arteries. IMPRESSION: 1. No evidence for an aortic dissection. 2. Mild aneurysmal dilatation of the ascending thoracic aorta measuring 4 cm in diameter. 3. Cardiomegaly. 4. Large hiatus hernia. 5. Bibasilar linear groundglass densities favor atelectasis. A bibasilar pneumonitis could also have a similar appearance but is considered less likely given the low lung volumes. 6. Periumbilical hernias, one of which contains a short segment of the transverse colon. However, no evidence for bowel obstruction. 7. Colonic diverticulosis. No evidence for acute diverticulitis. 8. Possible small colovaginal fistula as described above. 9. 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 10. A few bilateral hyperdense renal lesions with the largest on the left measuring 5 cm. These favor hyperdense cyst. However, a follow-up nonemergent renal ultrasound recommended for confirmation. 11. Additional findings as described above. ACT 112: Negative or not required by law. Electronically signed by: Fredis Montes De Oca M.D. 03/21/2022 5:22 PM Chest X-Ray 03/21/22 15:20 XR chest 1V portable HISTORY: weakness COMPARISON: Chest 11/07/2011. FINDINGS: There are low lung volumes. The cardiac silhouette is moderately enlarged. This is similar to the prior study. No pneumothorax. Mild diffuse interstitial thickening is noted. There is a large hiatus hernia. No pleural effusions. IMPRESSION: 1. Cardiomegaly with mild central pulmonary vascular congestion without overt edema. 2. Large hiatus hernia. ACT 112: Negative or not required by law. Electronically signed by: Freids Montes De Oca M.D. 03/21/2022 4:[address] 03/21/22 15:[address] DOSE: HISTORY: weakness, vomiting TECHNIQUE: Multiaxial CT images of the head were performed without the use of intravenous contrast. Automated exposure control was utilized for this study. A dose lowering technique was utilized adhering to the principles of ALARA. Comparison: None. Findings: Mild motion artifact. Trace fluid within the left sphenoid sinus. The mastoid air cells are clear. The calvarium and skull base are intact. There is no mass, hematoma, midline shift, acute infarct. White matter hypodensity is nonspecific but suggestive of microvascular ischemic change. The ventricles and sulci demonstrate mild age-related involutional changes. Impression: No acute intracranial abnormality. ACT 112: Negative or not required by law. Electronically signed by: Fredis Montes De Oca M.D. 03/21/2022 3:54 PM Code Status & VTE Plan VTE Prophylaxis Plan VTE Prophylaxis will be ordered: Yes (1) Nausea & vomiting Vomiting type: unspecified Qualified Code(s): R11.2 - Nausea with vomiting, unspecified (2) Abdominal pain Abdominal location: periumbilical Qualified Code(s): R10.33 - Periumbilical pain
[2022-03-21] MEDS ORDERED: ALUMINUM/MAGNESIUM SUSP 18 ML, LIDOCAINE VISCOUS 2% SOLN 6 ML, BARCODE IDENTIFIER 1 EACH PO ONE (19:00)
[2022-03-21] MEDS ORDERED: PROMETHAZINE HCL 12.5 MG in SODIUM CHLORIDE 0.9% 50 ML IV PRN (21:27)
[2022-03-21] MEDS ORDERED: ACETAMINOPHEN 325 MG TAB PO PRN (21:27)
[2022-03-21] MEDS ORDERED: cefTRIAXone SODIUM 2,000 MG in DEXTROSE 5% 50 ML IV SCH (21:30)
[2022-03-21] MEDS ORDERED: Patient's HEIGHT &/or WEIGHT Needed SCH ×2 (21:30→21:45)
[2022-03-21] MEDS: MONTELUKAST SODIUM 10 MG TABLET PO SCH (22:38)
[2022-03-21] MEDS: METOPROLOL TARTRATE 25 MG TAB PO SCH (22:38)
[2022-03-21] MEDS: PANTOprazole 40 MG in SYRINGE 0 ML IV SCH (22:38)
[2022-03-21] MEDS: PREGABALIN 100 MG CAP PO SCH (22:43)
[2022-03-22 00:59] LABS: Appearance Urine Clear (Clear); Bacteria Urine Automated Negative (Negative); Bilirubin Urine Negative (Negative); Blood Urine Negative (Negative); Color Urine Yellow; Epithelial Cell Urine Auto 20-30 /lpf (0-5); Glucose Urine UA Negative (Negative); Ketones Urine Trace (Negative); Leukocyte Esterase Urine Negative (Negative); Nitrite Urine Negative (Negative); Protein Urine 3+ (Negative); RBC Urine Automated 0-4 /hpf (0-4); Specific Gravity Urine > 1.045 (1.000-1.030); Urobilinogen Urine Negative (Negative); pH Urine 5.5 (4.5-7.5)
[2022-03-22] MEDS: LEVOTHYROXINE SODIUM 150 MCG TABLET PO SCH (05:55)
--- NOTE | 2022-03-22 07:17 | Electrocardiogram Report ---
Test Reason : Blood Pressure : / mmHG Vent. Rate : 088 BPM Atrial Rate : 088 BPM P-R Int : 234 ms QRS Dur : 154 ms QT Int : 430 ms P-R-T Axes : 083 -25 002 degrees QTc Int : 520 ms Poor data quality, interpretation may be adversely affected Sinus rhythm with 1st degree A-V block Right bundle branch block possible Inferior infarct , age undetermined Abnormal ECG When compared with ECG of 06-NOV-2011 15:20, QT has lengthened Confirmed by Vlad Rashid ([id number]) on 03/22/2022 7:17:00 AM Referred By: REFERRED SELF Confirmed By:Antoni Rashid
[2022-03-22 08:09] LABS: Hematocrit (blood only) 41.6 % (34.1-44.9); Hemoglobin 13.1 g/dl (12.0-16.0); Mean Corpuscular Hemoglobin 29.1 pg (25.0-34.0); Mean Corpuscular Hgb Conc 31.5 g/dL (32.0-36.0); Mean Corpuscular Volume 92.4 fL (80.0-100.0); Mean Platelet Volume 11.8 fL (9.4-12.3); Platelet Count 161 K/uL (130-400); RDW Standard Deviation 50.7 fL (36.4-46.3); White Blood Count 5.22 K/ul (4.8-10.8)
[2022-03-22 08:29] LABS: Albumin Globulin Ratio 1.7 (0.9-2); Albumin Level 3.8 gm/dl (3.4-5.0); BUN Creatinine Ratio 12.7 (10-20); Bilirubin,Total 0.7 mg/dl (0.2-1.0); Calcium 9.4 mg/dl (8.5-10.1); Creatinine Clr Calc Pharmacy 47.1 ml/min; Est GFR (African American) 46.6 ml/min; Est GFR (Non-African American) 40.2 ml/min; Globulin 2.3 gm/dl (2.5-4.0); Magnesium 2.2 mg/dl (1.7-2.4); Potassium 3.9 mmol/L (3.5-5.1); Total Protein 6.1 gm/dl (6.0-8.3)
[2022-03-22] MEDS ORDERED: FUROSEMIDE INJ 20 MG/2 ML VIAL IV ONE (09:00)
[2022-03-22] MEDS ORDERED: amLODIPine BESYLATE 5 MG TAB PO SCH (09:00)
[2022-03-22] MEDS ORDERED: lisinopril 20 MG TAB PO SCH (09:00)
--- NOTE | 2022-03-22 09:04 | Hospitalist Progress Note ---
Date of Service March 22, 2022 Assessment & Plan (1) Gastroenteritis: (2) Hypomagnesemia: (3) Nausea & vomiting: (4) Abdominal pain: (5) Hypoxia: (6) Pulmonary edema: (7) Renal cyst: Plan Patient is a 82-year-old female with past medical history of hypertension, hyperlipidemia, gout, arthritis, morbid obesity, hiatal hernia, abdominal hernia presents to the ED with complaint of abdominal pain, nausea and vomiting starting in the afternoon. Gastroenteritis Nausea/Vomiting Acute hypoxic respiratory Failure likely due to Renal cysts Hypomagnesemia Presents with nausea vomiting and epigastric pain Had leftover burger prior to admission CT abdomen remarkable for hiatal hernia, abdominal hernia with no bowel obstruction, multiple renal cyst Plan; -Patient's epigastric pain improved with GI cocktail. We will advance diet. Stop iv fluids -IV Protonix changed to oral Protonix -We will follow infectious work-up including blood culture; negative so far. -X-ray was concerning for bilateral infiltrates; Pro-Jevon negative, no cough. Will give 1 dose of Lasix and see response -Will obtain renal ultrasound for renal cyst - PT/OT Chronic issues: Hypertensioncontinue on metoprolol, amlodipine, lisinopril Hyperlipidemia- continue on Lipitor Hypothyroidism- continue on levothyroxine Gout- continue on allopurinol and prednisone Code- full DVT- heparin Admission and Anticipated Discharge Date Admission Date: March 21, 2022 Subjective Patient seen and examined at bedside. She says that her abdominal pain improved significantly after the GI cocktail. She continues to require 3 L of nasal cannula. Review of Systems Review of Systems: All systems reviewed & are unremarkable except as noted in Subjective Physical Exam Physical Exam: Constitutional: Awake, alert morbidly obese female in no acute distress. Respiratory: Bilateral basal crackles heard Cardiovascular: S1-S2, no murmur Chest: normal inspection of chest Abdomen: Soft, nontender Musculoskeletal: no cyanosis or clubbing, extremities motor strength 5/5 Skin: no rashes, warm and dry normal turgor Neurologic: PERRL, EOMI, accommodation nl, no face palsy, no dysarthria CN's II- XI intact bilaterally and moves all extremities Psychiatric: A+Ox3, euthymic affect : deferred Results & Data Results & Data ([facility]) Vital Signs (Past 12 Hours) Vital Signs Temp Pulse Pulse Resp BP Pulse Ox O2 Del Method 03/22/22 07:11 69 03/22/22 03:00 36.9 C 68 17 160/80 H 91 Nasal Cannula 03/21/22 22:38 36.7 C 81 16 163/86 H 88 L Nasal Cannula 03/22/22 00:20 85 03/21/22 21:27 36.4 C L 82 22 156/81 H 92 Nasal Cannula 03/21/22 21:16 85 03/21/22 22:49 Nasal Cannula 03/21/22 22:49 36.4 C L 82 24 156/81 H 89 L Nasal Cannula O2 Flow Rate 03/22/22 07:11 03/22/22 03:00 3 03/21/22 22:38 3 03/22/22 00:20 03/21/22 21:27 3 03/21/22 21:16 03/21/22 22:49 3 03/21/22 22:49 3 Laboratory Results Laboratory Results WBC 5.22 K/ul (4.8-10.8) 03/22/22 07:40 RBC 4.50 M/uL (3.93-5.22) 03/22/22 07:40 Hgb 13.1 g/dl (12.0-16.0) 03/22/22 07:40 POC Hgb 14.6 g/dl (12.0-16.0) 03/21/22 15:32 Hct 41.6 % (34.1-44.9) 03/22/22 07:40 POC Hct 43 % (37-47) 03/21/22 15:32 MCV 92.4 fL (80.0-100.0) 03/22/22 07:40 MCH 29.1 pg (25.0-34.0) 03/22/22 07:40 MCHC 31.5 g/dL (32.0-36.0) L 03/22/22 07:40 RDW Std Deviation 50.7 fL (36.4-46.3) H 03/22/22 07:40 RDW Coeff of Nury 15.0 % (11.5-14.5) H 03/22/22 07:40 Plt Count 161 K/uL (130-400) 03/22/22 07:40 MPV 11.8 fL (9.4-12.3) 03/22/22 07:40 Immature Gran % (Auto) 0.5 % 03/21/22 15:25 Neut % (Auto) 61.3 % 03/21/22 15:25 Lymph % (Auto) 19.5 % 03/21/22 15:25 Whiteside % (Auto) 10.3 % 03/21/22 15:25 Eos % (Auto) 7.0 % 03/21/22 15:25 Baso % (Auto) 1.4 % 03/21/22 15:25 Neut # (Auto) 3.53 K/uL (1.4-6.5) 03/21/22 15:25 Lymph # (Auto) 1.12 K/uL (1.2-3.4) L 03/21/22 15:25 Whiteside # (Auto) 0.59 K/uL (0.24-0.82) 03/21/22 15:25 Eos # (Auto) 0.40 K/uL (0-0.50) 03/21/22 15:25 Baso # (Auto) 0.08 K/uL (0-0.2) 03/21/22 15:25 Immature Gran # (Auto) 0.03 K/uL (0.00-0.02) H 03/21/22 15:25 PT 10.9 Seconds (9.0-12.0) 03/21/22 16:18 INR 1.0 (0.9-1.1) 03/21/22 16:18 POC Sodium 143 mmol/L (135-144) 03/21/22 15:32 Sodium 140 mmol/L (136-145) 03/22/22 07:40 POC Potassium 3.6 mmol/L (3.3-5.0) 03/21/22 15:32 Potassium 3.9 mmol/L (3.5-5.1) 03/22/22 07:40 POC Chloride 104 mmol/L (101-112) 03/21/22 15:32 Chloride 105 mmol/L (98-107) 03/22/22 07:40 Carbon Dioxide 31 mmol/L (21-32) 03/22/22 07:40 POC Total CO2 27 mmol/L (24-31) 03/21/22 15:32 Anion Gap 4 (3-11) 03/22/22 07:40 POC Anion Gap 17.0 mmol/L (16-25) 03/21/22 15:32 POC BUN 14 mg/dl (7-18) 03/21/22 15:32 BUN 16 mg/dl (6-23) 03/22/22 07:40 Creatinine 1.26 mg/dl (0.6-1.2) H 03/22/22 07:40 POC Creatinine 1.1 mg/dl (0.6-1.3) 03/21/22 15:32 Est Cr Clr Drug Dosing 47.1 ml/min 03/22/22 07:40 Est GFR ( Amer) 46.6 ml/min 03/22/22 07:40 Est GFR (Non-Af Amer) 40.2 ml/min 03/22/22 07:40 BUN/Creatinine Ratio 12.7 (10-20) 03/22/22 07:40 Glucose 88 mg/dl (70-99(Fasting)) 03/22/22 07:40 POC Glucose (other) 119 mg/dl (70-99) H 03/21/22 15:32 Lactate 0.9 mmol/L (0.4-2.0) 03/21/22 15:25 Calcium 9.4 mg/dl (8.5-10.1) 03/22/22 07:40 POC Ioniz Calcium Diamond 1.21 mmol/l (1.12-1.32) 03/21/22 15:32 Magnesium 2.2 mg/dl (1.7-2.4) 03/22/22 07:40 Total Bilirubin 0.7 mg/dl (0.2-1.0) 03/22/22 07:40 AST 13 U/L (13-39) 03/22/22 07:40 ALT 9 U/L (7-52) 03/22/22 07:40 Alkaline Phosphatase 77 U/L (34-104) 03/22/22 07:40 Troponin I High Sens 17.0 pg/ml (0-14) H 03/21/22 23:22 B-Natriuretic Peptide 80 pg/ml (0-100) 03/22/22 07:40 Total Protein 6.1 gm/dl (6.0-8.3) 03/22/22 07:40 Albumin 3.8 gm/dl (3.4-5.0) 03/22/22 07:40 Globulin 2.3 gm/dl (2.5-4.0) L 03/22/22 07:40 Albumin/Globulin Ratio 1.7 (0.9-2) 03/22/22 07:40 Lipase 39 U/L (11-82) 03/22/22 07:40 Procalcitonin < 0.05 ng/ml (0-0.5) 03/21/22 15:25 TSH 0.877 uIu/ml (0.300-4.500) 03/21/22 15:25 Urine Color Yellow 03/22/22 Unknown Urine Appearance Clear (Clear) 03/22/22 Unknown Urine pH 5.5 (4.5-7.5) 03/22/22 Unknown Ur Specific [place] > 1.045 (1.000-1.030) H 03/22/22 Unknown Urine Protein 3+ (Negative) H 03/22/22 Unknown Urine Glucose (UA) Negative (Negative) 03/22/22 Unknown Urine Ketones Trace (Negative) H 03/22/22 Unknown Urine Blood Negative (Negative) 03/22/22 Unknown Urine Nitrite Negative (Negative) 03/22/22 Unknown Urine Bilirubin Negative (Negative) 03/22/22 Unknown Urine Urobilinogen Negative (Negative) 03/22/22 Unknown Ur Leukocyte Esterase Negative (Negative) 03/22/22 Unknown Urine WBC (Auto) 1-5 /hpf (0-5) 03/22/22 Unknown Urine RBC (Auto) 0-4 /hpf (0-4) 03/22/22 Unknown U Hyaline Cast (Auto) 1-5 /lpf (0-5) 03/22/22 Unknown U Epithel Cells (Auto) 20-30 /lpf (0-5) H 03/22/22 Unknown Urine Bacteria (Auto) Negative (Negative) 03/22/22 Unknown SARS-CoV-2, RNA, NAAT NEGATIVE (NEGATIVE) 03/21/22 15:50 Impressions Abdomen/Pelvis CTA 03/21/22 15:20 CHEST CTA, ABDOMEN AND PELVIS CTA for AORTIC DISSECTION CT DOSE: 4518.68 mGy.cm HISTORY: Shortness of breath. Vomiting. Lethargy. Atypical chest pain and generalized abdominal pain. TECHNIQUE: Multiaxial CT images of the chest were performed both before and after the intravenous administration of contrast to evaluate the aorta. Multiaxial CT images of the abdomen and pelvis were also performed following the intravenous administration of contrast. Maximal intensity projection images of the chest, abdomen, and pelvis were also obtained. A dose lowering technique was utilized adhering to the principles of ALARA. COMPARISON STUDY: None. FINDINGS: Chest CTA: Noncontrast imaging through the chest is no evidence for an intramural hematoma within the thoracic aorta. There is mild calcified plaque w ithin the thoracic aorta. There is mild motion artifact. The ascending thoracic aorta measures up to 4 cm in diameter. Mild calcified plaque within the aortic valve. No evidence for an aortic dissection. There is a tortuous distal descending thoracic aorta. The main pulmonary arteries are patent but dilated. The heart is enlarged. There are mitral annulus calcifications also noted. No pleural or pericardial effusions. No mediastinal or hilar lymphadenopathy. Normal caliber esophagus. There is a large hiatus hernia containing the majority of the stomach and pancreatic tail. No suspicious lytic or blastic osseous lesions. No pneumothorax. The central airways are patent. There are low lung volumes. Bibasilar linear and groundglass densities favor atelectasis. A bibasilar pneumonitis could also have a similar appearance but is considered less likely given the low lung volumes. Abdomen/pelvis CTA: No pneumoperitoneum. No pneumatosis. No acute fractures within the visualized osseous structures. Small fat-containing umbilical hernia. There are 2 adjacent large right periumbilical hernias. One of these contains a short segment of the transverse colon. The other hernia contains fat. Mild thickening of the proximal jejunal loops is likely due to underdistention. Otherwise, no bowel wall thickening or obstruction. Colonic diverticulosis. No evidence for acute diverticulitis. There is a possible tiny colovaginal fistula along the left side of the vaginal cuff which extends to the undersurface of the sigmoid colon. This is best seen on images 416 through 422. Bladder wall thickening is likely due to underdistention. Prior hysterectomy. There is mild pelvic floor collapse. The appendix is not identified and may be surgically absent. The gallbladder appears surgically absent. The liver, pancreas, and adrenal glands are unremarkable. Multiple bilateral renal lesions. These demonstrate varying degrees of density and may represent a combination of hyperdense and simple cysts. Dominant hyperdense lesion within the upper pole of the left kidney measures 5 cm. A 1.4 cm indeterminate hypervascular focus within the spleen on image 157 which could represent a splenic lesion. No retro peritoneal lymphadenopathy. No hydronephrosis. Abdominal aorta is normal in caliber with no evidence for dissection. There is mild calcified plaque within the aorta and iliac arteries. No significant stenosis or occlusion within the iliac or visualized femoral arteries. The inferior mesenteric and superior mesenteric arteries are widely patent. 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 No significant stenosis within the bilateral renal arteries. IMPRESSION: 1. No evidence for an aortic dissection. 2. Mild aneurysmal dilatation of the ascending thoracic aorta measuring 4 cm in diameter. 3. Cardiomegaly. 4. Large hiatus hernia. 5. Bibasilar linear groundglass densities favor atelectasis. A bibasilar pneumonitis could also have a similar appearance but is considered less likely given the low lung volumes. 6. Periumbilical hernias, one of which contains a short segment of the transverse colon. However, no evidence for bowel obstruction. 7. Colonic diverticulosis. No evidence for acute diverticulitis. 8. Possible small colovaginal fistula as described above. 9. 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 10. A few bilateral hyperdense renal lesions with the largest on the left measuring 5 cm. These favor hyperdense cyst. However, a follow-up nonemergent renal ultrasound recommended for confirmation. 11. Additional findings as described above. ACT 112: Negative or not required by law. Electronically signed by: Fredis Montes De Oca M.D. 03/21/2022 5:22 PM Chest CTA 03/21/22 15:20 CHEST CTA, ABDOMEN AND PELVIS CTA for AORTIC DISSECTION CT DOSE: 4518.68 mGy.cm HISTORY: Shortness of breath. Vomiting. Lethargy. Atypical chest pain and generalized abdominal pain. TECHNIQUE: Multiaxial CT images of the chest were performed both before and after the intravenous administration of contrast to evaluate the aorta. Multiaxial CT images of the abdomen and pelvis were also performed following the intravenous administration of contrast. Maximal intensity projection images of the chest, abdomen, and pelvis were also obtained. A dose lowering technique was utilized adhering to the principles of ALARA. COMPARISON STUDY: None. FINDINGS: Chest CTA: Noncontrast imaging through the chest is no evidence for an intramural hematoma within the thoracic aorta. There is mild calcified plaque within the thoracic aorta. There is mild motion artifact. The ascending thoracic aorta measures up to 4 cm in diameter. Mild calcified plaque within the aortic valve. No evidence for an aortic dissection. There is a tortuous distal descending thoracic aorta. The main pulmonary arteries are patent but dilated. The heart is enlarged. There are mitral annulus calcifications also noted. No pleural or pericardial effusions. No mediastinal or hilar lymphadenopathy. Normal caliber esophagus. There is a large hiatus hernia containing the majority of the stomach and pancreatic tail. No suspicious lytic or blastic osseous lesions. No pneumothorax. The central airways are patent. There are low lung volumes. Bibasilar linear and groundglass densities favor atelectasis. A bibasilar pneumonitis could also have a similar appearance but is considered less likely given the low lung volumes. Abdomen/pelvis CTA: No pneumoperitoneum. No pneumatosis. No acute fractures within the visualized osseous structures. Small fat-containing umbilical hernia. There are 2 adjacent large right periumbilical hernias. One of these contains a short segment of the transverse colon. The other hernia contains fat. Mild thickening of the proximal jejunal loops is likely due to underdistention. Otherwise, no bowel wall thickening or obstruction. Colonic diverticulosis. No evidence for acute diverticulitis. There is a possible tiny colovaginal fistula along the left side of the vaginal cuff which extends to the undersurface of the sigmoid colon. This is best seen on images 416 through 422. Bladder wall thickening is likely due to underdistention. Prior hysterectomy. There is mild pelvic floor collapse. The appendix is not identified and may be surgically absent. The gallbladder appears surgically absent. The liver, pancreas, and adrenal glands are unremarkable. Multiple bilateral renal lesions. These demonstrate varying degrees of density and may represent a combination of hyperdense and simple cysts. Dominant hyperdense lesion within the upper pole of the left kidney measures 5 cm. A 1.4 cm indeterminate hypervascular focus within the spleen on image 157 which could represent a splenic lesion. No retroperitoneal lymphadenopathy. No hydronephrosis. Abdominal aorta is normal in caliber with no evidence for dissection. There is mild calcified plaque within the aorta and iliac arteries. No significant stenosis or occlusion within the iliac or visualized femoral arteries. The inferior mesenteric and superior mesenteric arteries are widely patent. 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 No significant stenosis within the bilateral renal arteries. IMPRESSION: 1. No evidence for an aortic dissection. 2. Mild aneurysmal dilatation of the ascending thoracic aorta measuring 4 cm in diameter. 3. Cardiomegaly. 4. Large hiatus hernia. 5. Bibasilar linear groundglass densities favor atelectasis. A bibasilar pneumonitis could also have a similar appearance but is considered less likely given the low lung volumes. 6. Periumbilical hernias, one of which contains a short segment of the transverse colon. However, no evidence for bowel obstruction. 7. Colonic diverticulosis. No evidence for acute diverticulitis. 8. Possible small colovaginal fistula as described above. 9. 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 10. A few bilateral hyperdense renal lesions with the largest on the left measuring 5 cm. These favor hyperdense cyst. However, a follow-up nonemergent renal ultrasound recommended for confirmation. 11. Additional findings as described above. ACT 112: Negative or not required by law. Electronically signed by: Fredis Montes De Oca M.D. 03/21/2022 5:22 PM Chest X-Ray 03/21/22 15:20 XR chest 1V portable HISTORY: weakness COMPARISON: Chest 11/07/2011. FINDINGS: There are low lung volumes. The cardiac silhouette is moderately enlarged. This is similar to the prior study. No pneumothorax. Mild diffuse interstitial thickening is noted. There is a large hiatus hernia. No pleural effusions. IMPRESSION: 1. Cardiomegaly with mild central pulmonary vascular congestion without overt edema. 2. Large hiatus hernia. ACT 112: Negative or not required by law. Electronically signed by: Fredis Montes De Oca M.D. 03/21/2022 4:[address] 03/21/22 15:[address] DOSE: HISTORY: weakness, vomiting TECHNIQUE: Multiaxial CT images of the head were performed without the use of intravenous contrast. Automated exposure control was utilized for this study. A dose lowering technique was utilized adhering to the principles of ALARA. Comparison: None. Findings: Mild motion artifact. Trace fluid within the left sphenoid sinus. The mastoid air cells are clear. The calvarium and skull base are intact. There is no mass, hematoma, midline shift, acute infarct. White matter hypodensity is nonspecific but suggestive of microvascular ischemic change. The ventricles and sulci demonstrate mild age-related involutional changes. Impression: No acute intracranial abnormality. ACT 112: Negative or not required by law. Electronically signed by: Fredis Montes De Oca M.D. 03/21/2022 3:54 PM (1) Nausea & vomiting Vomiting type: unspecified Qualified Code(s): R11.2 - Nausea with vomiting, unspecified (2) Abdominal pain Abdominal location: periumbilical Qualified Code(s): R10.33 - Periumbilical pain
[2022-03-22] MEDS: ENOXAPARIN INJ 40 MG/0.4 ML SYR SQ SCH (09:24)
[2022-03-22] MEDS: PANTOprazole 40 MG in SYRINGE 0 ML IV SCH (09:25)
[2022-03-22] MEDS: METOPROLOL TARTRATE 25 MG TAB PO SCH ×2 (09:25→21:09)
[2022-03-22] MEDS: allopurinoL 100 MG TAB PO SCH (09:25)
[2022-03-22] MEDS: predniSONE 5 MG TAB PO SCH (09:26)
[2022-03-22] MEDS: DULoxetine HCL 30 MG CAP PO SCH (09:26)
[2022-03-22] MEDS: ASPIRIN 81 MG ECTAB PO SCH (09:26)
[2022-03-22] MEDS: FLUTICASONE/VILANTEROL 200/25MCG 14 PUFFS/INHALER INH SCH (09:26)
[2022-03-22] MEDS: ATORVASTATIN 20 MG TAB PO SCH (09:26)
[2022-03-22] MEDS: PREGABALIN 100 MG CAP PO SCH ×2 (09:28→21:08)
--- NOTE | 2022-03-22 20:14 | Ultrasound Report ---
US renal/blad retro comp CLINICAL HISTORY: renal lesions noted on CT TECHNIQUE: Multiple sonographic real-time images of the kidneys and bladder were obtained. COMPARISON: Comparison is made to renal ultrasound 10/20/[address] abdomen pelvis 03/21/2022 FINDINGS: The right kidney measures 5.6 cm in length, and the left kidney measures 11.3 cm in length. The right kidney is normal in size, contour, cortical thickness, and echogenicity. No hydronephrosis is identified. Multiple cysts are seen measuring up to 2.1 x 2.0 x 2.0 cm in the lower pole. No per inephric fluid collection is seen. The left kidney is normal in size, contour, cortical thickness and echogenicity. No hydronephrosis i s identified. Multiple cysts are seen, the largest in the upper pole measures 4.8 x 3.6 x 1.0. No p erinephric fluid collection is seen. The bladder is partially distended. No large intraluminal mass is seen. IMPRESSION: Redemonstration of numerous cystic foci in the bilateral kidneys. No suspicious solid masses are seen . ACT 112: Negative or not required by law. Electronically signed by: Esteban Fernandez M.D. 03/22/2022 8:13 PM
[2022-03-22] MEDS: MONTELUKAST SODIUM 10 MG TABLET PO SCH (21:08)
[2022-03-23] MEDS: LEVOTHYROXINE SODIUM 150 MCG TABLET PO SCH (05:36)
[2022-03-23 06:13] LABS: Hematocrit (blood only) 40.6 % (34.1-44.9); Hemoglobin 12.8 g/dl (12.0-16.0); Mean Corpuscular Hemoglobin 28.9 pg (25.0-34.0); Mean Corpuscular Hgb Conc 31.5 g/dL (32.0-36.0); Mean Corpuscular Volume 91.6 fL (80.0-100.0); Mean Platelet Volume 12.1 fL (9.4-12.3); Platelet Count 160 K/uL (130-400); RDW Coefficient of Variation 14.8 % (11.5-14.5); RDW Standard Deviation 50.1 fL (36.4-46.3); Red Blood Count 4.43 M/uL (3.93-5.22); White Blood Count 5.27 K/ul (4.8-10.8)
[2022-03-23 06:52] LABS: BUN Creatinine Ratio 14.2 (10-20); Calcium 8.8 mg/dl (8.5-10.1); Creatinine Clr Calc Pharmacy 29.5 ml/min; Est GFR (Non-African American) 22.5 ml/min; Potassium 4.4 mmol/L (3.5-5.1)
[2022-03-23] MEDS: allopurinoL 100 MG TAB PO SCH (07:28)
[2022-03-23] MEDS: predniSONE 5 MG TAB PO SCH (07:28)
[2022-03-23] MEDS: ATORVASTATIN 20 MG TAB PO SCH (07:28)
[2022-03-23] MEDS: PANTOprazole 40 MG TAB PO SCH (07:29)
[2022-03-23] MEDS: METOPROLOL TARTRATE 25 MG TAB PO SCH (07:29)
[2022-03-23] MEDS: DULoxetine HCL 30 MG CAP PO SCH (07:29)
[2022-03-23] MEDS: ASPIRIN 81 MG ECTAB PO SCH (07:29)
[2022-03-23] MEDS: ENOXAPARIN INJ 40 MG/0.4 ML SYR SQ SCH (07:30)
[2022-03-23] MEDS: FLUTICASONE/VILANTEROL 200/25MCG 14 PUFFS/INHALER INH SCH (07:30)
[2022-03-23] MEDS: PREGABALIN 100 MG CAP PO SCH ×2 (07:48→20:17)
[2022-03-23 09:56] LABS: Phosphorus 5.6 mg/dl (2.5-4.9); Uric Acid 4.6 mg/dl (2.6-7.2)
[2022-03-23 10:36] LABS: Urine Chloride < 15 mmol/L; Urine Potassium 18.2 mmol/L; Urine Sodium 12 mmol/L
--- NOTE | 2022-03-23 12:19 | Hospitalist Progress Note ---
Date of Service March 23, 2022 Assessment & Plan (1) Gastroenteritis: (2) Hypomagnesemia: (3) Nausea & vomiting: (4) Abdominal pain: (5) Hypoxia: (6) Pulmonary edema: (7) Renal cyst: Plan Patient is a 82-year-old female with past medical history of hypertension, hyperlipidemia, gout, arthritis, morbid obesity, hiatal hernia, abdominal hernia presents to the ED with complaint of abdominal pain, nausea and vomiting starting in the afternoon. Gastroenteritis Nausea/Vomiting Acute hypoxic respiratory Failure likely due to PUlmonary edema Renal cysts Hypomagnesemia, resolved Presents with nausea vomiting and epigastric pain Had leftover burger prior to admission CT abdomen remarkable for hiatal hernia, abdominal hernia with no bowel obstruction, multiple renal cyst Plan; -Patient's epigastric pain improved with GI cocktail. Continue on Protonix once daily. -We will follow infectious work-up including blood culture; negative so far. -X-ray was concerning for bilateral infiltrates; Pro-Jevon negative, no cough. -Urology consulted for bilateral multiple renal cyst. - PT/OT Acute Kidney Injury -Patient's urine output on 03/22 decreased. -Work-up for YUNI sent including CK which is normal. Patient's blood pressure is very labile. Her blood pressure dropped from 142/68 to 95/55 after her morning medications. The YUNI most likely is related secondary to acute hemodynamic changes. I will hold off her antihypertensive allowing blood pressure to come back and see response. Nephrology to be consulted if her creatinine continues to worsen. Chronic issues: Hypertensionon hold Hyperlipidemia- continue on Lipitor Hypothyroidism- continue on levothyroxine Gout- continue on allopurinol and prednisone Code- full DVT- heparin Dispositionpatient lives by herself. She says he has plenty of support with her 3 daughters and 2 sons. Discussed with daughter Nannette over the phone reg arding living situation. She would prefer to have home health care nurse come to patient's house. Awaiting PT OT's evaluation. Plan to discharge home with home health and home PT OT after medical issue resolved. Admission and Anticipated Discharge Date Admission Date: March 21, 2022 Subjective Patient seen and examined at bedside. Is comfortably sitting up on the chair; not in any acute distress. She had decreased urinary output yesterday. However, she is making more urine today. She continues to feel weak. Review of Systems Review of Systems: All systems reviewed & are unremarkable except as noted in Subjective Physical Exam Physical Exam: Constitutional: Awake, alert morbidly obese female in no acute distress. Respiratory: Bilateral basal crackles heard Cardiovascular: S1-S2, no murmur Chest: normal inspection of chest Abdomen: Soft, nontender Musculoskeletal: no cyanosis or clubbing, extremities motor strength 5/5 Skin: no rashes, warm and dry normal turgor Neurologic: PERRL, EOMI, accommodation nl, no face palsy, no dysarthria CN's II- XI intact bilaterally and moves all extremities Psychiatric: A+Ox3, euthymic affect : deferred Results & Data Results & Data ([facility]) Vital Signs (Past 12 Hours) Vital Signs Temp Pulse Resp BP Pulse Ox O2 Del Method O2 Flow Rate 03/23/22 11:23 36.5 C 60 16 92/54 L 91 Nasal Cannula 3 03/23/22 08:00 Nasal Cannula 3 03/23/22 07:56 36.9 C 68 16 172/78 H 92 Nasal Cannula 3 03/23/22 03:39 36.5 C 60 20 118/64 91 Nasal Cannula 3 Laboratory Results Laboratory Results WBC 5.27 K/ul (4.8-10.8) 03/23/22 05:23 RBC 4.43 M/uL (3.93-5.22) 03/23/22 05:23 Hgb 12.8 g/dl (12.0-16.0) 03/23/22 05:23 POC Hgb 14.6 g/dl (12.0-16.0) 03/21/22 15:32 Hct 40.6 % (34.1-44.9) 03/23/22 05:23 POC Hct 43 % (37-47) 03/21/22 15:32 MCV 91.6 fL (80.0-100.0) 03/23/22 05:23 MCH 28.9 pg (25.0-34.0) 03/23/22 05:23 MCHC 31.5 g/dL (32.0-36.0) L 03/23/22 05:23 RDW Std Deviation 50.1 fL (36.4-46.3) H 03/23/22 05: RDW Coeff of [place] 14.8 % (11.5-14.5) H 03/23/22 05:23 Plt Count 160 K/uL (130-400) 03/23/22 05:23 MPV 12.1 fL (9.4-12.3) 03/23/22 05:23 Immature Gran % (Auto) 0.5 % 03/21/22 15:25 Neut % (Auto) 61.3 % 03/21/22 15:25 Lymph % (Auto) 19.5 % 03/21/22 15:25 [place] % (Auto) 10.3 % 03/21/22 15:25 Eos % (Auto) 7.0 % 03/21/22 15:25 Baso % (Auto) 1.4 % 03/21/22 15:25 Neut # (Auto) 3.53 K/uL (1.4-6.5) 03/21/22 15:25 Lymph # (Auto) 1.12 K/uL (1.2-3.4) L 03/21/22 15:25 [place] # (Auto) 0.59 K/uL (0.24-0.82) 03/21/22 15:25 Eos # (Auto) 0.40 K/uL (0-0.50) 03/21/22 15:25 Baso # (Auto) 0.08 K/uL (0-0.2) 03/21/22 15:25 Immature Gran # (Auto) 0.03 K/uL (0.00-0.02) H 03/21/22 15:25 PT 10.9 Seconds (9.0-12.0) 03/21/22 16:18 INR 1.0 (0.9-1.1) 03/21/22 16:18 POC Sodium 143 mmol/L (135-144) 03/21/22 15:32 Sodium 137 mmol/L (136-145) 03/23/22 05:23 POC Potassium 3.6 mmol/L (3.3-5.0) 03/21/22 15:32 Potassium 4.4 mmol/L (3.5-5.1) 03/23/22 05:23 POC Chloride 104 mmol/L (101-112) 03/21/22 15:32 Chloride 103 mmol/L (98-107) 03/23/22 05:23 Carbon Dioxide 31 mmol/L (21-32) 03/23/22 05:23 POC Total CO2 27 mmol/L (24-31) 03/21/22 15:32 Anion Gap 3 (3-11) 03/23/22 05:23 POC Anion Gap 17.0 mmol/L (16-25) 03/21/22 15:32 POC BUN 14 mg/dl (7-18) 03/21/22 15:32 BUN 29 mg/dl (6-23) H 03/23/22 05:23 Creatinine 2.04 mg/dl (0.6-1.2) H D 03/23/22 05:23 POC Creatinine 1.1 mg/dl (0.6-1.3) 03/21/22 15:32 Est Cr Clr Drug Dosing 29.5 ml/min 03/23/22 05:23 Est GFR ( Amer) 26.0 ml/min 03/23/22 05:23 Est GFR (Non-Af Amer) 22.5 ml/min 03/23/22 05:23 BUN/Creatinine Ratio 14.2 (10-20) 03/23/22 05:23 Glucose 90 mg/dl (70-99(Fasting)) 03/23/22 05:23 POC Glucose (other) 119 mg/dl (70-99) H 03/21/22 15:32 Lactate 0.9 mmol/L (0.4-2.0) 03/21/22 15:25 Uric Acid 4.6 mg/dl (2.6-7.2) 03/23/22 05:23 Calcium 8.8 mg/dl (8.5-10.1) 03/23/22 05:23 POC Ioniz Calcium Diamond 1.21 mmol/l (1.12-1.32) 03/21/22 15:32 Phosphorus 5.6 mg/dl (2.5-4.9) H 03/23/22 05:23 Magnesium 2.2 mg/dl (1.7-2.4) 03/22/22 07:40 Total Bilirubin 0.7 mg/dl (0.2-1.0) 03/22/22 07:40 AST 13 U/L (13-39) 03/22/22 07:40 ALT 9 U/L (7-52) 03/22/22 07:40 Alkaline Phosphatase 77 U/L (34-104) 03/22/22 07:40 Total Creatine Kinase 95 U/L (26-192) 03/23/22 05:23 Troponin I High Sens 17.0 pg/ml (0-14) H 03/21/22 23:22 B-Natriuretic Peptide 80 pg/ml (0-100) 03/22/22 07:40 Total Protein 6.1 gm/dl (6.0-8.3) 03/22/22 07:40 Albumin 3.8 gm/dl (3.4-5.0) 03/22/22 07:40 Globulin 2.3 gm/dl (2.5-4.0) L 03/22/22 07:40 Albumin/Globulin Ratio 1.7 (0.9-2) 03/22/22 07:40 Lipase 39 U/L (11-82) 03/22/22 07:40 Procalcitonin < 0.05 ng/ml (0-0.5) 03/21/22 15:25 TSH 0.877 uIu/ml (0.300-4.500) 03/21/22 15:25 Urine Color Yellow 03/22/22 Unknown Urine Appearance Clear (Clear) 03/22/22 Unknown Urine pH 5.5 (4.5-7.5) 03/22/22 Unknown Ur Specific [place] > 1.045 (1.000-1.030) H 03/22/22 Unknown Urine Protein 3+ (Negative) H 03/22/22 Unknown Urine Glucose (UA) Negative (Negative) 03/22/22 Unknown Urine Ketones Trace (Negative) H 03/22/22 Unknown Urine Blood Negative (Negative) 03/22/22 Unknown Urine Nitrite Negative (Negative) 03/22/22 Unknown Urine Bilirubin Negative (Negative) 03/22/22 Unknown Urine Urobilinogen Negative (Negative) 03/22/22 Unknown Ur Leukocyte Esterase Negative (Negative) 03/22/22 Unknown Urine WBC (Auto) 1-5 /hpf (0-5) 03/22/22 Unknown Urine RBC (Auto) 0-4 /hpf (0-4) 03/22/22 Unknown U Hyaline Cast (Auto) 1-5 /lpf (0-5) 03/22/22 Unknown U Epithel Cells (Auto) 20-30 /lpf (0-5) H 03/22/22 Unknown Urine Bacteria (Auto) Negative (Negative) 03/22/22 Unknown Urine Osmolality 239 mOsm/kg (500-800) L 03/23/22 10:04 Urine Sodium 12 mmol/L 03/23/22 10:04 Urine Potassium 18.2 mmol/L 03/23/22 10:04 Urine Chloride < 15 mmol/L 03/23/22 10:04 SARS-CoV-2, RNA, NAAT NEGATIVE (NEGATIVE) 03/21/22 15:50 Impressions Abdomen/Pelvis CTA 03/21/22 15:20 CHEST CTA, ABDOMEN AND PELVIS CTA for AORTIC DISSECTION CT DOSE: 4518.68 mGy.cm HISTORY: Shortness of breath. Vomiting. Lethargy. Atypical chest pain and generalized abdominal pain. TECHNIQUE: Multiaxial CT images of the chest were performed both before and after the intravenous administration of contrast to evaluate the aorta. Multiaxial CT images of the abdomen and pelvis were also performed following the intravenous administration of contrast. Maximal intensity projection images of the chest, abdomen, and pelvis were also obtained. A dose lowering technique was utilized adhering to the principles of ALARA. COMPARISON STUDY: None. FINDINGS: Chest CTA: Noncontrast imaging through the chest is no evidence for an intramural hematoma within the thoracic aorta. There is mild calcified plaque within the thoracic aorta. There is mild motion artifact. The ascending thoracic aorta measures up to 4 cm in diameter. Mild calcified plaque within the aortic valve. No evidence for an aortic dissection. There is a tortuous distal descending thoracic aorta. The main pulmonary arteries are patent but dilated. The heart is enlarged. There are mitral annulus calcifications also noted. No pleural or pericardial effusions. No mediastinal or hilar lymphadenopathy. Normal caliber esophagus. There is a large hiatus hernia containing the majority of the stomach and pancreatic tail. No suspicious lytic or blastic osseous lesions. No pneumothorax. The central airways are patent. There are low lung volumes. Bibasilar linear and groundglass densities favor atelectasis. A bibasilar pneumonitis could also have a similar appearance but is considered less likely given the low lung volumes. Abdomen/pelvis CTA: No pneumoperitoneum. No pneumatosis. No acute fractures within the visualized osseous structures. Small fat-containing umbilical hernia. There are 2 adjacent large right periumbilical hernias. One of these contains a short segment of the transverse colon. The other hernia contains fat. Mild thickening of the proximal jejunal loops is likely due to underdistention. Otherwise, no bowel wall thickening or obstruction. Colonic diverticulosis. No evidence for acute diverticulitis. There is a possible tiny colovaginal fistula along the left side of the vaginal cuff which extends to the undersurface of the sigmoid colon. This is best seen on images 416 through 422. Bladder wall thickening is likely due to underdistention. Prior hysterectomy. There is mild pelvic floor collapse. The appendix is not identified and may be surgically absent. The gallbladder appears surgically absent. The liver, pancreas, and adrenal glands are unremarkable. Multiple bilateral renal lesions. These demonstrate varying degrees of density and may represent a combination of hyperdense and simple cysts. Dominant hyperdense lesion within the upper pole of the left kidney measures 5 cm. A 1.4 cm indeterminate hypervascular focus within the spleen on image 157 which could represent a splenic lesion. No retroperitoneal lymphadenopathy. No hydronephrosis. Abdominal aorta is normal in caliber with no evidence for dissection. There is mild calcified plaque within the aorta and iliac arteries. No significant stenosis or occlusion within the iliac or visualized femoral arteries. The inferior mesenteric and superior mesenteric arteries are widely patent. 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 No significant stenosis within the bilateral renal arteries. IMPRESSION: 1. No evidence for an aortic dissection. 2. Mild aneurysmal dilatation of the ascending thoracic aorta measuring 4 cm in diameter. 3. Cardiomegaly. 4. Large hiatus hernia. 5. Bibasilar linear groundglass densities favor atelectasis. A bibasilar pneumonitis could also have a similar appearance but is considered less likely given the low lung volumes. 6. Periumbilical hernias, one of which contains a short segment of the transverse colon. However, no evidence for bowel obstruction. 7. Colonic diverticulosis. No evidence for acute diverticulitis. 8. Possible small colovaginal fistula as described above. 9. 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 10. A few bilateral hyperdense renal lesions with the largest on the left measuring 5 cm. These favor hyperdense cyst. However, a follow-up nonemergent renal ultrasound recommended for confirmation. 11. Additional findings as described above. ACT 112: Negative or not required by law. Electronically signed by: Fredis Montes De Oca M.D. 03/21/2022 5:22 PM Chest CTA 03/21/22 15:20 CHEST CTA, ABDOMEN AND PELVIS CTA for AORTIC DISSECTION CT DOSE: 4518.68 mGy.cm HISTORY: Shortness of breath. Vomiting. Lethargy. Atypical chest pain and generalized abdominal pain. TECHNIQUE: Multiaxial CT images of the chest were performed both before and after the intravenous administration of contrast to evaluate the aorta. Multiaxial CT images of the abdomen and pelvis were also performed following the intravenous administration of contrast. Maximal intensity projection images of the chest, abdomen, and pelvis were also obtained. A dose lowering technique was utilized adhering to the principles of ALARA. COMPARISON STUDY: None. FINDINGS: Chest CTA: Noncontrast imaging through the chest is no evidence for an intramural hematoma within the thoracic aorta. There is mild calcified plaque within the thoracic aorta. There is mild motion artifact. The ascending thoracic aorta measures up to 4 cm in diameter. Mild calcified plaque within the aortic valve. No evidence for an aortic dissection. There is a tortuous distal descending thoracic aorta. The main pulmonary arteries are patent but dilated. The heart is enlarged. There are mitral annulus calcifications also noted. No pleural or pericardial effusions. No mediastinal or hilar lymphadenopathy. Normal caliber esophagus. There is a large hiatus hernia containing the majority of the stomach and pancreatic tail. No suspicious lytic or blastic osseous lesions. No pneumothorax. The central airways are patent. There are low lung volumes. Bibasilar linear and groundglass densities favor atelectasis. A bibasilar pneumonitis could also have a similar appearance but is considered less likely given the low lung volumes. Abdomen/pelvis CTA: No pneumoperitoneum. No pneumatosis. No acute fractures within the visualized osseous structures. Small fat-containing umbilical hernia. There are 2 adjacent large right periumbilical hernias. One of these contains a short segment of the transverse colon. The other hernia contains fat. Mild thickening of the proximal jejunal loops is likely due to underdistention. Otherwise, no bowel wall thickening or obstruction. Colonic diverticulosis. No evidence for acute diverticulitis. There is a possible tiny colovaginal fistula along the left side of the vaginal cuff which extends to the undersurface of the sigmoid colon. This is best seen on images 416 through 422. Bladder wall thickening is likely due to underdistention. Prior hysterectomy. There is mild pelvic floor collapse. The appendix is not identified and may be surgically absent. The gallbladder appears surgically absent. The liver, pancreas, and adrenal glands are unremarkable. Multiple bilateral renal lesions. These demonstrate varying degrees of density and may represent a combination of hyperdense and simple cysts. Dominant hyperdense lesion within the upper pole of the left kidney measures 5 cm. A 1.4 cm indeterminate hypervascular focus within the spleen on image 157 which could represent a splenic lesion. No retroperitoneal lymphadenopathy. No hydronephrosis. Abdominal aorta is normal in caliber with no evidence for dissection. There is mild calcified plaque within the aorta and iliac arteries. No significant stenosis or occlusion within the iliac or visualized femoral arteries. The inferior mesenteric and superior mesenteric arteries are widely patent. 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 No significant stenosis within the bilateral renal arteries. IMPRESSION: 1. No evidence for an aortic dissection. 2. Mild aneurysmal dilatation of the ascending thoracic aorta measuring 4 cm in diameter. 3. Cardiomegaly. 4. Large hiatus hernia. 5. Bibasilar linear groundglass densities favor atelectasis. A bibasilar pneumonitis could also have a similar appearance but is considered less likely given the low lung volumes. 6. Periumbilical hernias, one of which contains a short segment of the transverse colon. However, no evidence for bowel obstruction. 7. Colonic diverticulosis. No evidence for acute diverticulitis. 8. Possible small colovaginal fistula as described above. 9. 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 10. A few bilateral hyperdense renal lesions with the largest on the left measuring 5 cm. These favor hyperdense cyst. However, a follow-up nonemergent renal ultrasound recommended for confirmation. 11. Additional findings as described above. ACT 112: Negative or not required by law. Electronically signed by: Fredis Montes De Oca M.D. 03/21/2022 5:22 PM Chest X-Ray 03/21/22 15:20 XR chest 1V portable HISTORY: weakness COMPARISON: Chest 11/07/2011. FINDINGS: There are low lung volumes. The cardiac silhouette is moderately enlarged. This is similar to the prior study. No pneumothorax. Mild diffuse interstitial thickening is noted. There is a large hiatus hernia. No pleural effusions. IMPRESSION: 1. Cardiomegaly with mild central pulmonary vascular congestion without overt edema. 2. Large hiatus hernia. ACT 112: Negative or not required by law. Electronically signed by: Fredis Montes De Oca M.D. 03/21/2022 4:[address] 03/21/22 15:[address] DOSE: HISTORY: weakness, vomiting TECHNIQUE: Multiaxial CT images of the head were performed without the use of intravenous contrast. Automated exposure control was utilized for this study. A dose lowering technique was utilized adhering to the principles of ALARA. Comparison: None. Findings: Mild motion artifact. Trace fluid within the left sphenoid sinus. The mastoid air cells are clear. The calvarium and skull base are intact. There is no mass, hematoma, midline shift, acute infarct. White matter hypodensity is nonspecific but suggestive of microvascular ischemic change. The ventricles and sulci demonstrate mild age-related involutional changes. Impression: No acute intracranial abnormality. ACT 112: Negative or not required by law. Electronically signed by: Fredis Montes De Oca M.D. 03/21/2022 3:54 PM Renal Ultrasound 03/22/22 00:00 US renal/blad retro comp CLINICAL HISTORY: renal lesions noted on CT TECHNIQUE: Multiple sonographic real-time images of the kidneys and bladder were obtained. COMPARISON: Comparison is made to renal ultrasound 10/20/[address] abdomen pelvis 03/21/2022 FINDINGS: The right kidney measures 5.6 cm in length, and the left kidney measures 11.3 cm in length. The right kidney is normal in size, contour, cortical thickness, and echogenicity. No hydronephrosis is identified. Multiple cysts are seen measuring up to 2.1 x 2.0 x 2.0 cm in the lower pole. No perinephric fluid collection is seen. The left kidney is normal in size, contour, cortical thickness and echogenicity. No hydronephrosis is identified. Multiple cysts are seen, the largest in the upper pole measures 4.8 x 3.6 x 1.0. No perinephric fluid collection is seen. The bladder is partially distended. No large intraluminal mass is seen. IMPRESSION: Redemonstration of numerous cystic foci in the bilateral kidneys. No suspicious solid masses are seen. ACT 112: Negative or not required by law. Electronically signed by: Esteban Fernandez M.D. 03/22/2022 8:13 PM (1) Nausea & vomiting Vomiting type: unspecified Qualified Code(s): R11.2 - Nausea with vomiting, unspecified (2) Abdominal pain Abdominal location: periumbilical Qualified Code(s): R10.33 - Periumbilical pain
[2022-03-23] MEDS: ALBUT/IPRATROP 3MG/0.5MG NEB 3 ML VIAL NEB SCH ×2 (15:20→22:42)
--- NOTE | 2022-03-23 20:04 | Urology Consultation ---
Date of Consultation March 23, 2022 Assessment & Plan (1) Renal cyst: (2) Pulmonary edema: (3) Community acquired pneumonia: (4) Gastroenteritis: (5) Hypomagnesemia: (6) Nausea & vomiting: (7) Confusion: Plan Patient has been found to have multiple lesions of the kidneys largest being 5 cm. On imaging appears to be hyperdense cyst. Patient had undergone repeat imaging with renal ultrasound which does still consistently show up as likely cystic lesions. Patient has a very complicated history. The imaging both the CT scan with contrast as well as the renal ultrasound were all reviewed interpreted by myself. Do appear to be consistent with a hyperdense cyst. Patient's vitals are currently stable. Has a number of abnormalities on her current blood work that are in a state of improving. Has been hospitalized due to significant GI issues with chronic abdominal pain that had significantly exacerbated with multiple other issues. Patient's creatinine is considerably higher than typical. It is usually around 1.1 is now up to 2.04. No considerable signs of obstruction. Baseline Chronic kidney disease per patient. Was told by PCP was stage 3. Reviewed different options with patient. Will likely need repeat imaging to further assess the lesions for stability as well as to discuss further work-up and options for continued monitoring. Discussed different lesions of the kidneys including renal lesions, masses, cysts, and other issues that may develop. Discussed options moving forward. We will plan to continue to monitor. We will have patient follow-up as an outpatient. History of Present Illness Attending Physician: Rm Avilez MD History of Present Illness Consult for lesions found incidentally during work-up for abdominal pain. Patient has extremely complicated history of GI issues with a colovaginal fistula and considerable issues from previous intervention. Patient has considerable abdominal pain. Has been undergoing work-up and further assessment. Underwent a imaging study which found multiple lesions on the kidneys. Lesions appear on CT scan with contrast to be hyperdense cyst. Does have some larger cyst with the largest being approximately 5 cm. Patient has been dealing with ongoing issues of abdominal pain with mild to moderate discomfort in pelvis and groin going to back and side in waves. Majority of these issues are consistent with her multiple previous issues related to abdominal pain. Is dealing with acute illness. Has been deconditioned from this. Has decreased mobility significantly with acute issues. Denies significant previous episodes of hematuria. Is still able to void. No severe nausea or vomiting. Currently no fevers. No significant family history of malignancy. Allergies Allergy/AdvReac Type Severity Reaction Status Date / Time azathioprine Allergy Intermediate HIVES Verified 03/21/22 17:48 gabapentin Allergy Intermediate hives Verified 03/21/22 17:48 hydroxychloroquine Allergy Intermediate HIVES Verified 03/21/22 17:48 ibuprofen Allergy Intermediate HIVES Verified 03/21/22 17:48 methotrexate Allergy Intermediate hives Verified 03/21/22 17:48 minocycline Allergy Intermediate Hives Verified 03/21/22 17:48 NSAIDS (Non-Steroidal Allergy Intermediate Hives Verified 03/21/22 17:48 Anti-Inflamma phenol Allergy Intermediate hives Verified 03/21/22 17:48 risedronate sodium Allergy Intermediate HIVES Verified 03/21/22 17:48 doxepin Allergy Mild HIVES Verified 03/21/22 17:48 leflunomide Allergy Mild HIVES Verified 03/21/22 17:48 sulfasalazine Allergy Mild HIVES Verified 03/21/22 17:48 Tetracyclines Allergy Mild HIVES Verified 03/21/22 17:48 hydromorphone AdvReac Intermediate hallucinate Verified 03/21/22 17:48 couldn't walk or talk teriparatide AdvReac Intermediate MALAISE, Verified 03/21/22 17:48 LOWER LEG EDEMA AMINOQUINOLINE Allergy Intermediate HIVES--PER Uncoded 03/21/22 17:48 GMG Home Medications Medication Instructions Recorded Confirmed Type Lactobacillus acidophilus 1 1 tab PO QAM 11/15/18 03/21/22 History billion cell tablet albuterol sulfate 90 mcg/actuation 2 puff inhalation Q4 PRN Shortness 11/15/18 03/21/22 History aerosol inhaler (Ventolin HFA) Of Breath amlodipine 5 mg tablet 5 mg PO QAM 11/15/18 03/21/22 History ascorbic acid (vitamin C) 500 mg 500 mg PO QAM 11/15/18 03/21/22 History tablet (Vitamin C) aspirin 81 mg tablet,delayed 81 mg PO QAM 11/15/18 03/21/22 History release calcium carbonate 600 mg-vitamin 1 tab PO QAM 11/15/18 03/21/22 History D3 5 mcg (200 unit) tablet (Calcium 600 + D(3)) duloxetine 30 mg capsule,delayed 30 mg PO QAM 11/15/18 03/21/22 History release ergocalciferol (vitamin D2) 10 mcg 1 tab PO QAM 11/15/18 03/21/22 History (400 unit) tablet melatonin 5 mg tablet 5 mg PO HS 11/15/18 03/21/22 History metoprolol tartrate 25 mg tablet 12.5 mg PO BID 11/15/18 03/21/22 History montelukast 10 mg tablet 10 mg PO HS 11/15/18 03/21/22 History (Singulair) pregabalin 100 mg capsule (Lyrica) See Rx Instructions .Route .COMPLEX 11/15/18 03/21/22 History vit C 50 mg-E 15 unit-zinc cit 4.5 1 tab PO QAM 11/15/18 03/21/22 History mg-lutein 2.5 mg-zeaxan chew tablet ([facility]) albuterol sulfate 2.5 mg/3 mL 2.5 mg inhalation DIRECTED PRN 03/21/22 03/21/22 History (0.083 %) solution for nebulization Shortness Of Breath Or Wheezing allopurinol 100 mg tablet 200 mg PO QAM 03/21/22 03/21/22 History atorvastatin 20 mg tablet 20 mg PO QAM 03/21/22 03/21/22 History docusate sodium 100 mg capsule 100 mg PO BID 03/21/22 03/21/22 History fluticasone propionate 230 2 puff inhalation BID 03/21/22 03/21/22 History mcg-salmeterol 21 mcg/actuation HFA inhaler (Advair HFA) iron,carbonyl 65 mg-vitamin C 125 1 tab PO 3XWK 03/21/22 03/21/22 History mg tablet,delayed release (Vitron-C) levothyroxine 150 mcg tablet 150 mcg PO DAILYBB 03/21/22 03/21/22 History lisinopril 20 mg tablet 20 mg PO QAM 03/21/22 03/21/22 History omeprazole 40 mg capsule,delayed 40 mg PO DAILYBB 03/21/22 03/21/22 History release prednisone 5 mg tablet 5 mg PO QAM 03/21/22 03/21/22 History sennosides 8.6 mg capsule (senna) 8.6 mg PO BID PRN Constipation 03/21/22 03/21/22 History Patient History Medical History Anxiety Bilateral cataracts Chronic kidney disease Chronic obstructive pulmonary disease Deep vein thrombosis 2011 after knee replacement--no longer on blood thinners Depression GERD (gastroesophageal reflux disease) Gout Hypertension Hypothyroidism Nocturnal hypoxia reason for oxygen On home oxygen therapy 2L hs n/c Spinal stenosis Surgical History History of arthroscopy of left knee History of bilateral tubal ligation History of bowel resection History of carpal tunnel release of both wrists History of cholecystectomy History of colonoscopy History of esophagogastroduodenoscopy (EGD) History of tonsillectomy History of tooth extraction all teeth removed History of total abdominal hysterectomy and bilateral salpingo-oophorectomy History of total left knee replacement (TKR) Status post correction of deviated nasal septum Family History Other No family history of adverse response to anesthesia Social History Smoking Status: Former smoker Second Hand Exposure: Yes ( smoked); Do You Dip or Chew Tobacco: No; Hx Alcohol Use: No Hx Substance Use: No Preferred Language: Lebanese Communication Ability: Effective Pbx Wire Chief Required: No Beliefs That Will Affect Care: None Current Living Situation: Alone Feels Safe at Home: Yes Safety Concerns: Feels Safe At This Time Assistive Devices: Denture - Upper, Denture - Lower, Oxygen - at Night and [employer] Review of Systems Review of Systems: All systems reviewed & are unremarkable except as noted in HPI & below Physical Exam Physical Exam: General: Alert and oriented x 3 in no acute distress. Obese HEENT: Normocephalic Atraumatic. Inspection normal. Cranial Nerves 2-12 Grossly intact. Nares are clear. Neck is supple. Normal inspection of face. Normal inspection of neck. Neurologic: No deficits on inspection. Baseline for motor function and sensory. Psychologic: Normal affect. Respiratory: Nonlabored. No use of accessory muscles. No tachypnea or dyspnea. Cardiovascular: No tachycardia Skin: [place] and Dry. No rashes or visible lesions. Extremities: Moving without issues. No motor deficits on inspection Abdomen: Obese. No rebound or guarding. Results & Data ([facility]) Vital Signs (Past 12 Hours) Vital Signs Temp Pulse Resp BP Pulse Ox O2 Del Method O2 Flow Rate 03/23/22 19:15 36.4 C L 64 20 111/69 90 Nasal Cannula 2 03/23/22 16:19 36.5 C 63 16 111/72 93 Room Air 03/23/22 15:20 69 18 94 Nasal Cannula 3 03/23/22 11:23 36.5 C 60 16 92/54 L 91 Nasal Cannula 3 03/23/22 08:00 Nasal Cannula 3 PG Care Time/CCT Total # of Minutes Spent Total Time Spent with Patient: Total time spent is greater than 50% in coordination of care (as documented) at patient's floor/unit and/or counseling patient: Coding Level of Care Code 03470 Inpt Consult Level 4 Diagnoses Renal cyst N28.1 Pulmonary edema J81.1 Community acquired pneumonia J18.9 Gastroenteritis K52.9 Hypomagnesemia E83.42 Nausea & vomiting R11.2 Vomiting type: unspecified Confusion R41.0 (1) Nausea & vomiting Vomiting type: unspecified Qualified Code(s): R11.2 - Nausea with vomiting, unspecified
[2022-03-23] MEDS: MONTELUKAST SODIUM 10 MG TABLET PO SCH (20:17)
[2022-03-24] MEDS: LEVOTHYROXINE SODIUM 150 MCG TABLET PO SCH (06:25)
[2022-03-24 06:39] LABS: Hematocrit (blood only) 42.9 % (34.1-44.9); Hemoglobin 13.6 g/dl (12.0-16.0); Mean Corpuscular Hgb Conc 31.7 g/dL (32.0-36.0); Mean Corpuscular Volume 91.5 fL (80.0-100.0); Mean Platelet Volume 12.1 fL (9.4-12.3); Platelet Count 164 K/uL (130-400); RDW Coefficient of Variation 14.7 % (11.5-14.5); RDW Standard Deviation 49.6 fL (36.4-46.3); Red Blood Count 4.69 M/uL (3.93-5.22); White Blood Count 7.45 K/ul (4.8-10.8)
[2022-03-24] MEDS: ALBUT/IPRATROP 3MG/0.5MG NEB 3 ML VIAL NEB SCH (06:59)
[2022-03-24 07:14] LABS: BUN Creatinine Ratio 19.3 (10-20); Calcium 9.1 mg/dl (8.5-10.1); Creatinine Clr Calc Pharmacy 25.8 ml/min; Est GFR (African American) 22.2 ml/min; Est GFR (Non-African American) 19.1 ml/min; Potassium 4.3 mmol/L (3.5-5.1)
[2022-03-24] MEDS: FLUTICASONE/VILANTEROL 200/25MCG 14 PUFFS/INHALER INH SCH (07:44)
[2022-03-24] MEDS: ENOXAPARIN INJ 30 MG/0.3 ML SYR SQ SCH (07:46)
[2022-03-24] MEDS: allopurinoL 100 MG TAB PO SCH (07:47)
[2022-03-24] MEDS: PANTOprazole 40 MG TAB PO SCH (07:47)
[2022-03-24] MEDS: DULoxetine HCL 30 MG CAP PO SCH (07:47)
[2022-03-24] MEDS: predniSONE 5 MG TAB PO SCH (07:48)
[2022-03-24] MEDS: ATORVASTATIN 20 MG TAB PO SCH (07:48)
[2022-03-24] MEDS: PREGABALIN 100 MG CAP PO SCH ×2 (07:49→21:35)
[2022-03-24] MEDS: ASPIRIN 81 MG ECTAB PO SCH (07:49)
[2022-03-24] MEDS ORDERED: ALBUT/IPRATROP 3MG/0.5MG NEB 3 ML VIAL NEB PRN (10:05)
--- NOTE | 2022-03-24 10:59 | Hospitalist Progress Note ---
Date of Service March 24, 2022 Assessment & Plan (1) Gastroenteritis: (2) Hypomagnesemia: (3) Nausea & vomiting: (4) Abdominal pain: (5) Hypoxia: (6) Pulmonary edema: (7) Renal cyst: Plan Patient is a 82-year-old female with past medical history of hypertension, hyperlipidemia, gout, arthritis, morbid obesity, hiatal hernia, abdominal hernia presents to the ED with complaint of abdominal pain, nausea and vomiting starting in the afternoon. Gastroenteritis Nausea/Vomiting Acute hypoxic respiratory Failure likely due to PUlmonary edema Renal cysts Hypomagnesemia, resolved Presents with nausea vomiting and epigastric pain Had leftover burger prior to admission CT abdomen remarkable for hiatal hernia, abdominal hernia with no bowel obstruction, multiple renal cyst Renal ultrasound showed redemonstration of numerous cystic foci in bilateral kidneys. Plan; -Patient's epigastric pain improved with GI cocktail. She has a known large hiatal hernia. Continue on Protonix once daily. -Infectious work-up negative so far. -X-ray was concerning for bilateral infiltrates; Pro-Jevon negative, no cough. Will obtain echo this admission; last echo was from 02/2021. EF was 56% at that time with concentric LVH and grade 1 diastolic dysfunction. Proximal ascending aorta was measuring 4.3 cm. -Urology recommendation appreciated; will provide outpatient follow-up - PT/OT Acute Kidney Injury -Patient's urine output on 03/22 and on 03/23. She also received a dose of Lasix on 03/22. -Work-up for YUNI sent including CK which is normal. Patient's blood pressure is very labile. Her blood pressure dropped from systolic 1 72 to 92. The YUNI most likely is related secondary to acute hemodynamic changes. I will hold off her antihypertensive allowing blood pressure to come back and see response. Neph rology consulted; will appreciate recommendation. Chronic issues: Hypertensionon hold Hyperlipidemia- continue on Lipitor Hypothyroidism- continue on levothyroxine Gout- continue on allopurinol and prednisone MDD- on Cymbalta. . Psychiatric follow-up as outpatient requested by her daughter Code- full DVT- heparin Dispositionpatient lives by herself. She says he has plenty of support with her 3 daughters and 2 sons. Discussed with daughter Nannette( phone number- ) on 03/23 and 03/24 over the phone regarding living situation. She would prefer to have home health care nurse come to patient's house. Awaiting PT OT's evaluation. Plan to discharge home with home health and home PT OT after medical issue resolved. Admission and Anticipated Discharge Date Admission Date: March 23, 2022 Physical Exam Physical Exam: Constitutional: Awake, alert morbidly obese female in no acute distress. Respiratory: Bilateral basal crackles heard Cardiovascular: S1-S2, no murmur Chest: normal inspection of chest Abdomen: Soft, nontender Musculoskeletal: no cyanosis or clubbing, extremities motor strength 5/5 Skin: no rashes, warm and dry normal turgor Neurologic: PERRL, EOMI, accommodation nl, no face palsy, no dysarthria CN's II- XI intact bilaterally and moves all extremities Psychiatric: A+Ox3, euthymic affect : deferred Results & Data Results & Data ([facility]) Vital Signs (Past 12 Hours) Vital Signs Temp Pulse Pulse Resp BP Pulse Ox O2 Del Method 03/24/22 07:45 36.5 C 80 18 101/61 90 Nasal Cannula 03/24/22 07:40 03/24/22 06:59 64 17 95 Nasal Cannula 03/24/22 03:28 36.5 C 80 18 129/68 91 Nasal Cannula 03/23/22 23:31 36.5 C 72 18 130/76 92 Nasal Cannula 03/23/22 23:21 63 03/23/22 22:59 Nasal Cannula O2 Flow Rate 03/24/22 07:45 3 03/24/22 07:40 2 03/24/22 06:59 2 03/24/22 03:28 2 03/23/22 23:31 2 03/23/22 23:21 03/23/22 22:59 3 (1) Nausea & vomiting Vomiting type: unspecified Qualified Code(s): R11.2 - Nausea with vomiting, unspecified (2) Abdominal pain Abdominal location: periumbilical Qualified Code(s): R10.33 - Periumbilical pain
[2022-03-24 13:45] LABS: Appearance Urine Clear (Clear); Bilirubin Urine Negative (Negative); Blood Urine Negative (Negative); Color Urine Yellow; Glucose Urine UA Negative (Negative); Ketones Urine Negative (Negative); Leukocyte Esterase Urine Negative (Negative); Nitrite Urine Negative (Negative); Protein Urine Negative (Negative); Specific Gravity Urine 1.011 (1.000-1.030); Urobilinogen Urine Negative (Negative)
--- NOTE | 2022-03-24 15:29 | Consultation Report ---
NEPHROLOGY CONSULTATION NOTE DATE OF SERVICE: 03/24/2022. REASON FOR CONSULTATION: Acute renal failure. HISTORY OF PRESENT ILLNESS: The patient is an 82-year-old female who presented to the hospital 3 day s ago with acute onset of not feeling good, nausea, vomiting, weakness and shortness of breath. Appa rently, the symptoms started suddenly on Wednesday morning. She said she was fine up until Wednesday. S he was not quite specific about what was her main problem, which led to her coming to the hospital. The patient lives by herself, walks with a walker and gets support from her daughter. On arrival to the Emergency Department, the patient was very hypertensive with blood pressure of more than 200. She was hypoxic with 86% oxygen saturation. Her magnesium was low. She had CT angiogram of the abdomen as well as CT chest to rule out PE, so obviously she had a fair amount of contrast ex posure on admission; however, her creatinine was completely normal with a reading of 1.09, but since then it has steadily gone up to 1.26, then 2.04, and this morning is 2.33 after which Nephrology has been consulted. She still has oxygen and she is on 3 liters oxygen with 90% oxygen saturation. Blood pressure, although was high in the presentation, it is currently running somewhat low and she has ybarra d a period of relative hypotension with readings of 90 in the last 2 days. She has not received any I V fluid or any Lasix since admission. She has findings suggestive of pulmonary congestion. Renal imaging showed multiple bilateral renal cysts, for which Urology has already been consulted. U rology has suggested to do further evaluation after current situation of acute renal failure, infecti on and pulmonary congestion has resolved. The patient claims she is much better than when she came i n. She is making urine, although we do not know exact amount as she does not have a Vazquez catheter. She has not received any nephrotoxic antibiotics or NSAIDs while inpatient. ALLERGIES: List is very extensive and was reviewed in detail and is as per the H and P and the medic ine reconciliation. HOME MEDICATION: Was also reviewed in detail and is as per the H and P and the reconciliation list. She was on lisinopril 20 at home, but no diuretics. PAST MEDICAL AND SURGICAL HISTORY: Includes history of anxiety, chronic kidney disease stage II to s tage IIIa with baseline creatinine around 1, COPD, but was not on oxygen, history of DVT after knee r eplacement, depression, GERD, gout, hypertension, hypothyroidism. PAST SURGICAL HISTORY: Arthroscopy, bilateral tubal ligation, bowel resection, carpal tunnel release , cholecystectomy, colonoscopy, EGD, tonsillectomy, tooth extraction, total abdominal hysterectomy, b ilateral salpingo-oophorectomy, total knee replacements, status post correction of deviated nasal sep saurabh. FAMILY HISTORY: Negative for renal disease or dialysis. SOCIAL HISTORY: Never smoked. She currently lives by herself. She has a denture. She has oxygen a t night and uses walker for ambulation. PHYSICAL EXAMINATION: GENERAL: Elderly white female who is obese. She is not in overt respiratory distress at this time. She is still requiring oxygen 3 liters. VITAL SIGNS: Blood pressure is 101/61, pulse rate 80, temperature 36.5, oxygen saturation 90%. HEENT: Mucous membranes are moist. NECK: Supple. No JVD. CHEST: Bilaterally clear to auscultation. CARDIOVASCULAR: S1 and S2, regular. ABDOMEN: Soft, nontender. EXTREMITIES: Show no edema. LABORATORY TEST: Reviewed. On admission, creatinine was 1.09, but since then has gone up to 1.26, t hen 2.04 and now it is 2.33. Blood work from today shows a BUN of 45. Sodium 135, potassium 4.3. U rine sediment done on 03/22/2022 shows high specific gravity, 3+ protein, some urine ketone, epitheli al cells 20-30. CT abdomen and pelvis, CT chest, chest x-ray and renal ultrasound was already review ed in detail and she has bilateral hyperdense renal cyst present. Finding suggestive of pulmonary co ngestion and cardiomegaly; however, no hydronephrosis, and no pulmonary embolism seen. ASSESSMENT AND PLAN: An 82-year-old female who I have been consulted to see for evaluation of acute renal failure. Acute renal failure: This appears to be more related with contrast exposure, which she had on 2021. Prior to the contrast, creatinine was 1.09, but since then it has steadily gone up. So the ti janet does fit with contrast nephropathy. However, there was also significant change in her blood p ressure presented. She came in with very high blood pressure, but it has dropped fairly fast within 24 hours to somewhat low reading of 90 systolic. Such rapid drop in blood pressure in elderly patien t can be associated with acute renal failure. Avoid nephrotoxic agent. Reviewed her current medicat ion list and none of the medications are nephrotoxic. I do not believe we have to give her IV fluid at this time given the findings of her chest x-ray and CT chest showing pulmonary congestion. I will continue to support the patient hemodynamically. We will continue to do daily labs to see the trend of the kidney function. Given that creatinine is still rising, I would not discharge the patient. We have to wait at least until the creatinine is stabilized or preferably start going down. I will c mark to follow the patient. Thank you very much for the consult. Job ID: [id number]
[2022-03-24] MEDS: MONTELUKAST SODIUM 10 MG TABLET PO SCH (21:36)
[2022-03-25] MEDS: LEVOTHYROXINE SODIUM 150 MCG TABLET PO SCH (06:21)
[2022-03-25 06:57] LABS: Hemoglobin 12.9 g/dl (12.0-16.0); Mean Corpuscular Hgb Conc 32.3 g/dL (32.0-36.0); Mean Corpuscular Volume 89.9 fL (80.0-100.0); Mean Platelet Volume 12.2 fL (9.4-12.3); Platelet Count 145 K/uL (130-400); RDW Coefficient of Variation 14.6 % (11.5-14.5); RDW Standard Deviation 47.7 fL (36.4-46.3); Red Blood Count 4.45 M/uL (3.93-5.22); White Blood Count 4.68 K/ul (4.8-10.8)
[2022-03-25 07:21] LABS: BUN Creatinine Ratio 25.6 (10-20); Calcium 9.1 mg/dl (8.5-10.1); Creatinine Clr Calc Pharmacy 37.5 ml/min; Est GFR (African American) 34.9 ml/min; Est GFR (Non-African American) 30.1 ml/min; Potassium 4.6 mmol/L (3.5-5.1)
[2022-03-25] MEDS: predniSONE 5 MG TAB PO SCH (08:06)
[2022-03-25] MEDS: PANTOprazole 40 MG TAB PO SCH (08:06)
[2022-03-25] MEDS: ASPIRIN 81 MG ECTAB PO SCH (08:06)
[2022-03-25] MEDS: allopurinoL 100 MG TAB PO SCH (08:06)
[2022-03-25] MEDS: FLUTICASONE/VILANTEROL 200/25MCG 14 PUFFS/INHALER INH SCH (08:07)
[2022-03-25] MEDS: ENOXAPARIN INJ 30 MG/0.3 ML SYR SQ SCH (08:07)
[2022-03-25] MEDS: ATORVASTATIN 20 MG TAB PO SCH (08:07)
[2022-03-25] MEDS: DULoxetine HCL 30 MG CAP PO SCH (08:07)
[2022-03-25] MEDS: PREGABALIN 100 MG CAP PO SCH ×2 (08:13→22:02)
--- NOTE | 2022-03-25 10:26 | Nephrology Progress Note ---
Date of Service March 25, 2022 Assessment & Plan Admission and Anticipated Discharge Date Admission Date: March 23, 2022 Subjective S--no new issues. feels stable. Still on o2. PHYSICAL EXAMINATION: GENERAL: Elderly white female who is obese. She is not in overt respiratory distress at this time. She is still requiring oxygen 3 liters. HEENT: Mucous membranes are moist. NECK: Supple. No JVD. CHEST: Bilaterally clear to auscultation. CARDIOVASCULAR: S1 and S2, regular. ABDOMEN: Soft, nontender. EXTREMITIES: Show no edema. LABORATORY TEST: Reviewed. Creat down to 1.6 ASSESSMENT AND PLAN: An 82-year-old female who I have been consulted to see for evaluation of acute renal failure. Acute renal failure: This appears to be more related with contrast exposure, which she had on 03/21/2022. Prior to the contrast, creatinine was 1.09, but since then it has steadily gone up. So the timeline does fit with contrast nephropathy. However, there was also significant change in her blood pressure presented. She came in with very high blood pressure, but it has dropped fairly fast within 24 hours to somewhat low reading of 90 systolic. Such rapid drop in blood pressure in elderly patient can be associated with acute renal failure. Avoid nephrotoxic agent. Reviewed her current medication list and none of the medications are nephrotoxic. rec: 1 Creat today is down so its good and means peak ARF is over--Timeline strongly suggest Contrast nephropathy as the cause. Appears euvolemic on exam and also on ECHO. NO need of iv fluids or diuretics. 2 Stable from renal standpoint. Discharge upto primary team. . Results & Data ([facility]) Vital Signs (Past 12 Hours) Vital Signs Temp Pulse Pulse Resp BP Pulse Ox O2 Del Method 03/25/22 07:47 Nasal Cannula 03/25/22 07:43 36.6 C 69 18 146/61 H 91 Nasal Cannula 03/25/22 03:46 158/72 H 03/25/22 03:06 36.5 C 86 20 170/76 H 92 Nasal Cannula 03/25/22 00:06 36.5 C 76 20 157/76 H 90 Nasal Cannula 03/24/22 23:27 80 03/24/22 22:45 Nasal Cannula O2 Flow Rate 03/25/22 07:47 2.5 03/25/22 07:43 3 03/25/22 03:46 03/25/22 03:06 3 03/25/22 00:06 3 03/24/22 23:27 03/24/22 22:45 3
[2022-03-25] MEDS: FUROSEMIDE 40 MG/4 ML VIAL IV SCH (11:07)
--- NOTE | 2022-03-25 12:53 | Hospitalist Progress Note ---
Date of Service March 25, 2022 Assessment & Plan (1) Gastroenteritis: Plan: Reported foodborne illness that has since resolved. Nausea and vomiting has resolved. Patietn notes intermittent heart burn from hiatal hernia but is otherwise improved. Tolerating PO. Abdominal imaging on admission revealed periumbiical hernias without evidence of bowel obstruction. She has no abdominal pain present today. Hernias appear reducible. She offers that she declined surgery offered to her in the past to fix these hernias. Possible fistulous disease also noted between colon and vagina. No symptoms reported from this currently. (2) Abdominal pain: Plan: resolved as above. (3) Acute diastolic heart failure: Plan: Evidence of new onset, with worsening, pulmonary edema. Echo reveals preserved EF with diastolic dysfunction and moderate aortic stenosis. Progressive dyspnea with exertion noted by patient over the past several months. Place kulkarni, strict ins/outs. Trial of Lasix. Monitor creatinine closely with daily BMP gven recent insult from contrast-induced nephropathy. Low salt diet. (4) Hypoxia: Plan: 2/2 above. Cont to wean oxygen off as we are diuresing. (5) Acute renal failure: Plan: Acute renal failure with improvement on labwork today. Likely 2/2 contrast induced nephropathy per nephrology who is aware of additional lasix being given today. Trend BMP in am. (6) Renal cyst: Plan: outpatient followup with [facility] as outpatient for continued incvestigation. (7) Morbid obesity: (8) DVT prophylaxis: Plan: Lovenox Full Code Dispo-on telemetry and willkeep another 1-2 days to see if we can improve her hypoxia. Tiffani Deras DO [facility] Hospitalist Admission and Anticipated Discharge Date Admission Date: March 23, 2022 Subjective 82 yo F iwth multiple chronic medical problems presented to the ER reporting tearfulness and concerns that she was having a stroke. Notably per documenta tion the concern was abdominal pain, nausea and vomiting, which she states wasn't the case. She denies any of those symptoms today and states that she has a h/o depression. Two days prior to admission she was so fatigued that she slept all day. She said the day she arrived she was having trouble iwth word finding and couldn't stop crying. She reports just turning 82 years old which was upsetting for her. She lost her one year ago and is now being forced out of her home into an apartment because she can't afford to live in her family home now. This has been upsetting for her. She is morbidly obese but denies any weight gain. She reports worsening shortness of breath with exertion over the past 4 months. YUNI 2/2 KIRILL is improved today. Echo results were shared with patient. We discussed kulkarni catheter placement and a trial of lasix with ongoing need for oxygen. CXR results this morning are consistent with increased fluid overload compared with recent CXR. Review of Systems Review of Systems: All systems were reviewed and negative except as indicated above. Physical Exam Physical Exam: CONSTITUTIONAL: obese, vitals as above, generally well- appearing, NAD EYES: normal conjunctivae, no scleral icterus, ENT: external ear and nose normal, MMM, oxygen supplementation in place. NECK: trachea midline RESPIRATORY: clear to auscultation bilaterally, decreased breath sounds at bases, no crackles, rales or wheezes, normal respiratory effort CARDIOVASCULAR: regular rate and rhythm, 3/6 JOI heard at LSB, no gallops or rubs, no JVD, no peripheral edema, CHEST: inspection of chest was normal GASTROINTESTINAL: soft, nontender, nondistended, no guarding MUSCULOSKELETAL: strength 5/5 throughout, head is normocephalic and atraumatic SKIN: warm and dry, NEUROLOGIC: CN 2-12 grossly intact, no sensory deficit, normal cognition, normal speech, no tremor PSYCHIATRIC: alert cooperative and oriented to person, place and time. Euthymic mood, makes good eye contact, language grossly intact, recent and remote memory grossly intact. Results & Data Results & Data ([facility]) Vital Signs (Past 12 Hours) Vital Signs Temp Pulse Pulse Resp BP Pulse Ox O2 Del Method 03/25/22 06:15 79 03/25/22 11:17 36.4 C L 71 18 116/63 93 Nasal Cannula 03/25/22 07:47 Nasal Cannula 03/25/22 07:43 36.6 C 69 18 146/61 H 91 Nasal Cannula 03/25/22 03:46 158/72 H 03/25/22 03:06 36.5 C 86 20 170/76 H 92 Nasal Cannula O2 Flow Rate 03/25/22 06:15 03/25/22 11:17 3 03/25/22 07:47 2.5 03/25/22 07:43 3 03/25/22 03:46 03/25/22 03:06 3 Laboratory Results Short CBC 03/25/22 Range/Units 06:40 WBC 4.68 L (4.8-10.8) K/ul Hgb 12.9 (12.0-16.0) g/dl Hct 40.0 (34.1-44.9) % Plt Count 145 (130-400) K/uL BMP 03/25/22 06:40 Sodium 139 Potassium 4.6 Chloride 104 Carbon Dioxide 31 BUN 41 H Creatinine 1.60 H D Glucose 76 Calcium 9.1 Urine 03/24/22 Range/Units 13:30 Urine Color Yellow Urine Appearance Clear (Clear) Urine pH 5.0 (4.5-7.5) Ur Specific [place] 1.011 (1.000-1.030) Urine Protein Negative (Negative) Urine Glucose (UA) Negative (Negative) Medications Administered Current Inpatient Medications Acetaminophen (Acetaminophen 325 Mg Tab) 650 mg PO Q4H PRN PRN Reason: pain/fever Stop: 04/20/22 21:26 Albuterol (Albut/Ipratrop 3mg/0.5mg Neb 3 Ml Vial) 3 ml NEB Q8R PRN; Protocol PRN Reason: Shortness Of Breath Stop: 04/22/22 14:59 Allopurinol (Allopurinol 100 Mg Tab) 200 mg PO [facility] Stop: 04/21/22 08:59 Last Admin: 03/25/22 08:06 Dose: 200 mg Amlodipine Besylate (Amlodipine Besylate 5 Mg Tab) 5 mg PO [facility] Stop: 04/21/22 08:59 Last Admin: 03/22/22 09:26 Dose: 5 mg Aspirin (Aspirin 81 Mg Ectab) 81 mg PO [facility] Stop: 04/21/22 08:59 Last Admin: 03/25/22 08:06 Dose: 81 mg Atorvastatin Calcium (Atorvastatin 20 Mg Tab) 20 mg PO [facility] Stop: 04/21/22 08:59 Last Admin: 03/25/22 08:07 Dose: 20 mg Duloxetine HCl (Duloxetine Hcl 30 Mg Cap) 30 mg PO [facility] Stop: 04/21/22 08:59 Last Admin: 03/25/22 08:07 Dose: 30 mg Enoxaparin Sodium (Enoxaparin Inj 30 Mg/0.3 Ml Syr) 30 mg SQ Q24H [facility] Stop: 04/23/22 08:59 Last Admin: 03/25/22 08:07 Dose: 30 mg Fluticasone/Vilanterol (Fluticasone/Vilanterol 200/25mcg 14 Puffs/Inhaler) 1 puffs INH DAILY [facility] Stop: 04/21/22 08:59 Last Admin: 03/25/22 08:07 Dose: 1 puffs Furosemide (Furosemide 40 Mg/4 Ml Vial) 40 mg IV Q24H [facility] Stop: 04/24/22 10:29 Last Admin: 03/25/22 11:07 Dose: 40 mg Promethazine HCl 12.5 mg/ (Sodium Chloride) 50.5 mls @ 202 mls/hr IV Q6H PRN PRN Reason: Nausea And Vomiting Stop: 04/20/22 21:26 Last Infusion: 03/22/22 16:13 Dose: Infused Levothyroxine Sodium (Levothyroxine Sodium 150 Mcg Tablet) 150 mcg PO DAILYBB [facility] Stop: 04/21/22 06:29 Last Admin: 03/25/22 06:21 Dose: 150 mcg Montelukast Sodium (Montelukast Sodium 10 Mg Tablet) 10 mg PO HS [facility] Stop: 04/20/22 21:26 Last Admin: 03/24/22 21:36 Dose: 10 mg Pantoprazole Sodium (Pantoprazole 40 Mg Tab) 40 mg PO QAM [facility] Stop: 04/22/22 08:59 Last Admin: 03/25/22 08:06 Dose: 40 mg Prednisone (Prednisone 5 Mg Tab) 5 mg PO QAM [facility] Stop: 04/21/22 08:59 Last Admin: 03/25/22 08:06 Dose: 5 mg Pregabalin (Pregabalin 100 Mg Cap) 200 mg PO PM [facility] Stop: 04/20/22 21:26 Last Admin: 03/24/22 21:35 Dose: 200 mg Pregabalin (Pregabalin 100 Mg Cap) 100 mg PO QAM [facility] Stop: 04/21/22 08:59 Last Admin: 03/25/22 08:13 Dose: 100 mg (1) Abdominal pain Abdominal location: periumbilical Qualified Code(s): R10.33 - Periumbilical pain
--- NOTE | 2022-03-25 13:14 | XRay Report ---
XR chest 1V portable CLINICAL HISTORY: Hypoxia. COMPARISON STUDY: Chest CT and chest radiograph March 21, 2022. FINDINGS: Lung volumes are diminished. There is no pneumothorax or pleural effusion. A large hiatal h ernia is noted. Cardiomegaly is present. There is pulmonary vascular congestion. Mild right basilar o pacity favors atelectasis. No lobar consolidation. IMPRESSION: 1. Pulmonary vascular congestion. Stable cardiomegaly. 2. Large hiatal hernia. 3. No lobar consolidation. ACT 112: Negative or not required by law. Electronically signed by: Jose Lentz M.D. 03/25/2022 1:13 PM
[2022-03-25] MEDS: MONTELUKAST SODIUM 10 MG TABLET PO SCH (21:57)
[2022-03-26] MEDS: LEVOTHYROXINE SODIUM 150 MCG TABLET PO SCH (05:37)
[2022-03-26] MEDS: ENOXAPARIN INJ 30 MG/0.3 ML SYR SQ SCH (08:34)
[2022-03-26] MEDS: FLUTICASONE/VILANTEROL 200/25MCG 14 PUFFS/INHALER INH SCH (08:34)
[2022-03-26] MEDS: DULoxetine HCL 30 MG CAP PO SCH (08:35)
[2022-03-26] MEDS: PANTOprazole 40 MG TAB PO SCH (08:35)
[2022-03-26] MEDS: ATORVASTATIN 20 MG TAB PO SCH (08:35)
[2022-03-26] MEDS: ASPIRIN 81 MG ECTAB PO SCH (08:35)
[2022-03-26] MEDS: allopurinoL 100 MG TAB PO SCH (08:35)
[2022-03-26] MEDS: predniSONE 5 MG TAB PO SCH (08:35)
[2022-03-26] MEDS: PREGABALIN 100 MG CAP PO SCH ×2 (08:38→20:12)
[2022-03-26 08:50] LABS: Calcium 9.2 mg/dl (8.5-10.1); Creatinine Clr Calc Pharmacy 40.3 ml/min; Est GFR (African American) 37.7 ml/min; Est GFR (Non-African American) 32.6 ml/min; Magnesium 2.2 mg/dl (1.7-2.4); Potassium 4.3 mmol/L (3.5-5.1)
--- NOTE | 2022-03-26 09:58 | Nephrology Progress Note ---
Date of Service March 26, 2022 Assessment & Plan Admission and Anticipated Discharge Date Admission Date: March 23, 2022 Subjective Subjective S--no new issues. No SOB despite bad looking CXR. made 1600 ml urine with lasix one dose.. Still on o2. PHYSICAL EXAMINATION: GENERAL: Elderly white female who is obese. She is not in overt respiratory distress at this time. She is still requiring oxygen 3 liters. HEENT: Mucous membranes are moist. NECK: Supple. No JVD. CHEST: Bilaterally clear to auscultation. CARDIOVASCULAR: S1 and S2, regular. ABDOMEN: Soft, nontender. EXTREMITIES: Show no edema. LABORATORY TEST: Reviewed. Creat down to 1.5. CXR looks like CHF ASSESSMENT AND PLAN: An 82-year-old female who I have been consulted to see for evaluation of acute renal failure. Acute renal failure: This appears to be more related with contrast exposure, which she had on 03/21/2022. Prior to the contrast, creatinine was 1.09, but since then it has steadily gone up. So the timeline does fit with contrast nephropathy. However, there was also significant change in her blood pressure presented. She came in with very high blood pressure, but it has dropped fairly fast within 24 hours to somewhat low reading of 90 systolic. Such rapid drop in blood pressure in elderly patient can be associated with acute renal failure. Avoid nephrotoxic agent. Reviewed her current medication list and none of the medications are nephrotoxic. rec: 1 Creat today is down so its good and means peak ARF is over--Timeline strongly suggest Contrast nephropathy as the cause. Fairly unremarkable ECHO. But CXR looks bad and got one dose of lasix 40. Can give lasix 40 x 2 doses today and repeat CXR tomorrow to see if any improvement. . Results & Data ([facility]) Vital Signs (Past 12 Hours) Vital Signs Temp Pulse Pulse Resp BP BP Pulse Ox 03/26/22 08:13 36.5 C 72 18 147/78 H 90 03/26/22 07:34 70 03/26/22 00:00 67 03/26/22 02:56 36.6 C 66 18 146/79 H 93 03/25/22 23:07 36.7 C 69 18 167/94 H 95 O2 Del Method O2 Flow Rate 03/26/22 08:13 Nasal Cannula 3 03/26/22 07:34 03/26/22 00:00 03/26/22 02:56 Nasal Cannula 2 03/25/22 23:07 Nasal Cannula 2
[2022-03-26] MEDS: FUROSEMIDE 40 MG/4 ML VIAL IV SCH ×2 (11:37→20:02)
[2022-03-26] MEDS: POTASSIUM CHLORIDE 10 MEQ TABCR PO SCH ×2 (12:27→20:06)
[2022-03-26] MEDS ORDERED: FUROSEMIDE 40 MG/4 ML VIAL IV ONE (12:55)
--- NOTE | 2022-03-26 17:25 | Hospitalist Progress Note ---
Date of Service March 26, 2022 Assessment & Plan (1) Gastroenteritis: Plan: Reported foodborne illness that has since resolved. Nausea and vomiting has resolved. (2) Acute diastolic heart failure: Plan: Evidence of new onset, with worsening, pulmonary edema. Echo reveals preserved EF with diastolic dysfunction and moderate aortic stenosis. Progressive dyspnea with exertion noted by patient over the past several months. Place kulkarni, strict ins/outs. Trial of Lasix helped. Monitor creatinine closely with daily BMP gven recent insult from contrast-induced nephropathy. Low salt diet. Cont Lasix BID and repeat CXR in am. (3) Hypoxia: Plan: 2/2 above. Cont to wean oxygen off as we are diuresing as tolerated. (4) Acute renal failure: Plan: Acute renal failure with improvement on labwork today. Likely 2/2 contrast induced nephropathy per nephrology who is aware of additional lasix being given today. Trend BMP in am. (5) Renal cyst: Plan: outpatient followup with [facility] as outpatient for continued incvestigation. (6) Morbid obesity: (7) DVT prophylaxis: Plan: Lovenox Full Code Dispo-on telemetry and home in 1-2 days. Tiffani Deras DO [facility] Hospitalist Admission and Anticipated Discharge Date Admission Date: March 23, 2022 Subjective 82 yo F with multiple chronic medical problems presented to the ER reporting tearfulness and concerns that she was having a stroke. Notably per documentation the concern was abdominal pain, nausea and vomiting, which she states wasn't the case. She has had increased oxygen needs and film revealed ? pulmonary congestion She has responded well to Lasix trial overnight and creat remains stable Discussed with patient and nephrology and we are wanting to continue Lasix overnight with repeat CXR in am. Patient denies abdominal pain or other GI symptoms. Denies chest pain, sob or other issues at this time Was up and walking to and from the bathroom. Review of Systems Review of Systems: All systems were reviewed and negative except as indicated above. Physical Exam 2 Physical Exam: CONSTITUTIONAL: obese, vitals as above, generally well- appearing, NAD EYES: normal conjunctivae, no scleral icterus, ENT: external ear and nose normal, MMM, oxygen supplementation in place. NECK: trachea midline RESPIRATORY: clear to auscultation bilaterally, decreased breath sounds at bases, no crackles, rales or wheezes, normal respiratory effort CARDIOVASCULAR: regular rate and rhythm, 3/6 JOI heard at LSB, no gallops or rubs, no JVD, no peripheral edema, CHEST: inspection of chest was normal GASTROINTESTINAL: soft, nontender, nondistended, no guarding MUSCULOSKELETAL: strength 5/5 throughout, head is normocephalic and atraumatic SKIN: warm and dry, NEUROLOGIC: CN 2-12 grossly intact, no sensory deficit, normal cognition, normal speech, no tremor PSYCHIATRIC: alert cooperative and oriented to person, place and time. Euthymic mood, makes good eye contact, language grossly intact, recent and remote memory grossly intact. Results & Data Results & Data ([facility]) Vital Signs (Past 12 Hours) Vital Signs Temp Pulse Pulse Resp BP BP Pulse Ox 03/26/22 15:45 36.8 C 70 19 136/83 89 L 03/26/22 15:04 48 L 03/26/22 11:21 36.6 C 76 19 130/69 90 03/26/22 08:13 36.5 C 72 18 147/78 H 90 03/26/22 07:34 70 O2 Del Method O2 Flow Rate 03/26/22 15:45 Nasal Cannula 3 03/26/22 15:04 03/26/22 11:21 Nasal Cannula 3 03/26/22 08:13 Nasal Cannula 3 03/26/22 07:34 Laboratory Results [facility] 03/26/22 07:16 Sodium 138 Potassium 4.3 Chloride 104 Carbon Dioxide 29 BUN 45 H Creatinine 1.50 H Glucose 76 Calcium 9.2 Medications Administered Current Inpatient Medications Acetaminophen (Acetaminophen 325 Mg Tab) 650 mg PO Q4H PRN PRN Reason: pain/fever Stop: 04/20/22 21:26 Albuterol (Albut/Ipratrop 3mg/0.5mg Neb 3 Ml Vial) 3 ml NEB Q8R PRN; Protocol PRN Reason: Shortness Of Breath Stop: 04/22/22 14:59 Allopurinol (Allopurinol 100 Mg Tab) 200 mg PO QAM [facility] Stop: 04/21/22 08:59 Last Admin: 03/26/22 08:35 Dose: 200 mg Amlodipine Besylate (Amlodipine Besylate 5 Mg Tab) 5 mg PO QAM [facility] Stop: 04/21/22 08:59 Last Admin: 03/22/22 09:26 Dose: 5 mg Aspirin (Aspirin 81 Mg Ectab) 81 mg PO QAM [facility] Stop: 04/21/22 08:59 Last Admin: 03/26/22 08:35 Dose: 81 mg Atorvastatin Calcium (Atorvastatin 20 Mg Tab) 20 mg PO QAM [facility] Stop: 04/21/22 08:59 Last Admin: 03/26/22 08:35 Dose: 20 mg Duloxetine HCl (Duloxetine Hcl 30 Mg Cap) 30 mg PO QAM [facility] Stop: 04/21/22 08:59 Last Admin: 03/26/22 08:35 Dose: 30 mg Enoxaparin Sodium (Enoxaparin Inj 40 Mg/0.4 Ml Syr) 40 mg SQ DAILY [facility] Stop: 04/26/22 08:59 Fluticasone/Vilanterol (Fluticasone/Vilanterol 200/25mcg 14 Puffs/Inhaler) 1 puffs INH DAILY [facility] Stop: 04/21/22 08:59 Last Admin: 03/26/22 08:34 Dose: 1 puffs Furosemide (Furosemide 40 Mg/4 Ml Vial) 40 mg IV BID [facility] Stop: 04/25/22 20:59 Promethazine HCl 12.5 mg/ (Sodium Chloride) 50.5 mls @ 202 mls/hr IV Q6H PRN PRN Reason: Nausea And Vomiting Stop: 04/20/22 21:26 Last Infusion: 03/22/22 16:13 Dose: Infused Levothyroxine Sodium (Levothyroxine Sodium 150 Mcg Tablet) 150 mcg PO DAILYBB [facility] Stop: 04/21/22 06:29 Last Admin: 03/26/22 05:37 Dose: 150 mcg Montelukast Sodium (Montelukast Sodium 10 Mg Tablet) 10 mg PO HS [facility] Stop: 04/20/22 21:26 Last Admin: 03/25/22 21:57 Dose: 10 mg Pantoprazole Sodium (Pantoprazole 40 Mg Tab) 40 mg PO QAM [facility] Stop: 04/22/22 08:59 Last Admin: 03/26/22 08:35 Dose: 40 mg Potassium Chloride (Potassium Chloride 10 Meq Tabcr) 10 meq PO BID [facility] Stop: 04/25/22 10:59 Last Admin: 03/26/22 12:27 Dose: 10 meq Prednisone (Prednisone 5 Mg Tab) 5 mg PO QAM [facility] Stop: 04/21/22 08:59 Last Admin: 03/26/22 08:35 Dose: 5 mg Pregabalin (Pregabalin 100 Mg Cap) 200 mg PO PM [facility] Stop: 04/20/22 21:26 Last Admin: 03/25/22 22:02 Dose: 200 mg Pregabalin (Pregabalin 100 Mg Cap) 100 mg PO QA [facility] Stop: 04/21/22 08:59 Last Admin: 03/26/22 08:38 Dose: 100 mg
[2022-03-26] MEDS: MONTELUKAST SODIUM 10 MG TABLET PO SCH (20:04)
[2022-03-27] MEDS: LEVOTHYROXINE SODIUM 150 MCG TABLET PO SCH (05:48)
[2022-03-27 08:07] LABS: BUN Creatinine Ratio 28.1 (10-20); Calcium 9.4 mg/dl (8.5-10.1); Creatinine Clr Calc Pharmacy 36.9 ml/min; Est GFR (African American) 34.9 ml/min; Est GFR (Non-African American) 30.1 ml/min; Potassium 4.2 mmol/L (3.5-5.1)
[2022-03-27] MEDS: FLUTICASONE/VILANTEROL 200/25MCG 14 PUFFS/INHALER INH SCH (08:20)
[2022-03-27] MEDS: ATORVASTATIN 20 MG TAB PO SCH (08:21)
[2022-03-27] MEDS: POTASSIUM CHLORIDE 10 MEQ TABCR PO SCH ×2 (08:21→21:04)
[2022-03-27] MEDS: predniSONE 5 MG TAB PO SCH (08:22)
[2022-03-27] MEDS: allopurinoL 100 MG TAB PO SCH (08:22)
[2022-03-27] MEDS: ASPIRIN 81 MG ECTAB PO SCH (08:22)
[2022-03-27] MEDS: DULoxetine HCL 30 MG CAP PO SCH (08:22)
[2022-03-27] MEDS: PANTOprazole 40 MG TAB PO SCH (08:22)
[2022-03-27] MEDS: FUROSEMIDE 40 MG/4 ML VIAL IV SCH ×2 (08:23→21:03)
[2022-03-27] MEDS: ENOXAPARIN INJ 40 MG/0.4 ML SYR SQ SCH (08:23)
[2022-03-27] MEDS: PREGABALIN 100 MG CAP PO SCH ×2 (08:25→21:04)
--- NOTE | 2022-03-27 08:48 | XRay Report ---
SINGLE VIEW CHEST CLINICAL HISTORY: Pulmonary edema FINDINGS: An AP, portable, upright chest radiograph is compared to study dated 03/25/2022 and correlate d with chest CT dated 03/21/2022. The examination is degraded by portable technique and apical lordotic positioning. The heart is enlarged noting atherosclerotic calcification of the thoracic artery. Ther e is pulmonary vascular congestion. This is improved as compared to 03/25/2022. A large hiatal hernia i s noted. Scarring/atelectasis associated both lung bases. No large pleural effusion or pneumothorax i s seen. The skeletal structures are osteopenic. The bony thorax is grossly intact. IMPRESSION: 1. Cardiomegaly with pulmonary vascular congestion. This has improved as compared to previous. 2. No large pleural effusion is identified. 3. Large hiatal hernia. ACT 112: Negative or not required by law. Electronically signed by: Doc Chatman M.D. 03/27/2022 8:47 AM
--- NOTE | 2022-03-27 10:28 | Nephrology Progress Note ---
Date of Service March 27, 2022 Assessment & Plan Admission and Anticipated Discharge Date Admission Date: March 23, 2022 Subjective Subjective S--no new issues. No SOB despite bad looking CXR. made 5900 ml urine with lasix iv .. Still on o2 but less PHYSICAL EXAMINATION: GENERAL: Elderly white female who is obese. She is not in overt respiratory distress at this time. She is still requiring oxygen 3 liters. HEENT: Mucous membranes are moist. NECK: Supple. No JVD. CHEST: Bilaterally clear to auscultation. CARDIOVASCULAR: S1 and S2, regular. ABDOMEN: Soft, nontender. EXTREMITIES: Show no edema. LABORATORY TEST: Reviewed. Creat down to 1.6. CXR looks like CHF but today si slightly improved ASSESSMENT AND PLAN: An 82-year-old female who I have been consulted to see for evaluation of acute renal failure. Acute renal failure: This appears to be more related with contrast exposure, which she had on 03/21/2022. Prior to the contrast, creatinine was 1.09, but since then it has steadily gone up. So the timeline does fit with contrast nephropathy. However, there was also significant change in her blood pressure presented. She came in with very high blood pressure, but it has dropped fairly fast within 24 hours to somewhat low reading of 90 systolic. Such rapid drop in blood pressure in elderly patient can be associated with acute renal failure. Avoid nephrotoxic agent. Reviewed her current medication list and none of the medications are nephrotoxic. rec: 1 Creat today is stable so its good and means peak ARF is over--Timeline strongly suggest Contrast nephropathy as the cause. Fairly unremarkable ECHO. But CXR looks like CHF. SOme improvement in CXR today. Can continue iv lasix one more day Results & Data ([facility]) Vital Signs (Past 12 Hours) Vital Signs Temp Pulse Pulse Resp BP BP Pulse Ox 03/27/22 10:12 03/27/22 08:02 36.6 C 76 19 122/78 93 03/27/22 07:29 70 03/27/22 04:00 36.6 C 83 18 154/85 H 91 03/26/22 23:44 78 03/26/22 23:12 36.8 C 77 18 142/83 H 92 O2 Del Method O2 Flow Rate 03/27/22 10:12 Nasal Cannula 2 03/27/22 08:02 Nasal Cannula 3 03/27/22 07:29 03/27/22 04:00 Nasal Cannula 3 03/26/22 23:44 03/26/22 23:12 Nasal Cannula 3
--- NOTE | 2022-03-27 14:43 | Hospitalist Progress Note ---
Date of Service March 27, 2022 Assessment & Plan (1) Gastroenteritis: Plan: Reported foodborne illness that has since resolved. Nausea and vomiting has resolved. (2) Acute diastolic heart failure: Plan: Evidence of new onset, with worsening, pulmonary edema. Echo reveals preserved EF with diastolic dysfunction and moderate aortic stenosis. Progressive dyspnea with exertion noted by patient over the past several months. Place kulkarni, strict ins/outs. Trial of Lasix has helped. Still with some hypoxia at rest. CXR is improved this morning. Cont one more day of Lasix. Monitor creatinine closely with daily BMP given recent insult from contrast-induced nephropathy. Low salt diet. (3) Hypoxia: Plan: 2/2 above. Cont to wean oxygen off as we are diuresing as tolerated. (4) Acute renal failure: Plan: Acute renal failure with improvement on labwork today. Likely 2/2 contrast induced nephropathy per nephrology who is aware of additional lasix being given today. Trend BMP in am. (5) Renal cyst: Plan: outpatient followup with [facility] as outpatient for continued incvestigation. (6) Morbid obesity: (7) DVT prophylaxis: Plan: Lovenox Full Code Dispo-on telemetry and home in 1-2 days. Tiffani Deras DO [facility] Hospitalist Admission and Anticipated Discharge Date Admission Date: March 23, 2022 Subjective 82 yo F with multiple chronic medical problems presented to the ER reporting tearfulness and concerns that she was having a stroke. Notably per documentation the concern was abdominal pain, nausea and vomiting, which she states wasn't the case. Noted to be requiring oxygen more than prescribed at home. CXR revealed pulmonary congestion. Treatment wtih Lasix initiated. 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 Still requiring oxygen supplementation today--92% on 3LPM She is ambulating and needs to ambulate more-encouraged laps in the hallway at least twice today Review of Systems Review of Systems: All systems were reviewed and negative except as indicated above. Physical Exam Physical Exam: CONSTITUTIONAL: obese, vitals as above, generally well- appearing, NAD EYES: normal conjunctivae, no scleral icterus, ENT: external ear and nose normal, MMM, oxygen supplementation in place. NECK: trachea midline RESPIRATORY: clear to auscultation bilaterally, decreased breath sounds at bases, mild crackles bilaterally, rales or wheezes, normal respiratory effort CARDIOVASCULAR: regular rate and rhythm, 3/6 JOI heard at LSB, no gallops or rubs, no JVD, no peripheral edema, CHEST: inspection of chest was normal GASTROINTESTINAL: soft, nontender, nondistended, no guarding MUSCULOSKELETAL: strength 5/5 throughout, head is normocephalic and atraumatic SKIN: warm and dry, NEUROLOGIC: CN 2-12 grossly intact, no sensory deficit, normal cognition, normal speech, no tremor PSYCHIATRIC: alert cooperative and oriented to person, place and time. Euthymic mood, makes good eye contact, language grossly intact, recent and remote memory grossly intact. Results & Data Results & Data ([facility]) Vital Signs (Past 12 Hours) Vital Signs Temp Pulse Pulse Resp BP BP Pulse Ox 03/27/22 11:19 36.6 C 74 19 131/84 92 03/27/22 10:12 03/27/22 08:02 36.6 C 76 19 122/78 93 03/27/22 07:29 70 03/27/22 04:00 36.6 C 83 18 154/85 H 91 O2 Del Method O2 Flow Rate 03/27/22 11:19 Nasal Cannula 3 03/27/22 10:12 Nasal Cannula 2 03/27/22 08:02 Nasal Cannula 3 03/27/22 07:29 03/27/22 04:00 Nasal Cannula 3 Laboratory Results BMP 03/27/22 07:09 Sodium 141 Potassium 4.2 Chloride 101 Carbon Dioxide 35 H BUN 45 H Creatinine 1.60 H Glucose 80 Calcium 9.4 Diagnostic Findings Chest X-Ray 03/27/22 07:00 SINGLE VIEW CHEST CLINICAL HISTORY: Pulmonary edema FINDINGS: An AP, portable, upright chest radiograph is compared to study dated 03/25/2022 and correlated with chest CT dated 03/21/2022. The examination is degraded by portable technique and apical lordotic positioning. The heart is enlarged noting atherosclerotic calcification of the thoracic artery. There is pulmonary vascular congestion. This is improved as compared to 03/25/2022. A large hiatal hernia is noted. Scarring/atelectasis associated both lung bases. No large pleural effusion or pneumothorax is seen. The skeletal structures are osteopenic. The bony thorax is grossly intact. IMPRESSION: 1. Cardiomegaly with pulmonary vascular congestion. This has improved as comp ared to previous. 2. No large pleural effusion is identified. 3. Large hiatal hernia. ACT 112: Negative or not required by law. Electronically signed by: Doc Chatman M.D. 03/27/2022 8:47 AM Medications Administered Current Inpatient Medications Acetaminophen (Acetaminophen 325 Mg Tab) 650 mg PO Q4H PRN PRN Reason: pain/fever Stop: 04/20/22 21:26 Albuterol (Albut/Ipratrop 3mg/0.5mg Neb 3 Ml Vial) 3 ml NEB Q8R PRN; Protocol PRN Reason: Shortness Of Breath Stop: 04/22/22 14:59 Allopurinol (Allopurinol 100 Mg Tab) 200 mg PO QAM [facility] Stop: 04/21/22 08:59 Last Admin: 03/27/22 08:22 Dose: 200 mg Amlodipine Besylate (Amlodipine Besylate 5 Mg Tab) 5 mg PO QAM [facility] Stop: 04/21/22 08:59 Last Admin: 03/22/22 09:26 Dose: 5 mg Aspirin (Aspirin 81 Mg Ectab) 81 mg PO QAM [facility] Stop: 04/21/22 08:59 Last Admin: 03/27/22 08:22 Dose: 81 mg Atorvastatin Calcium (Atorvastatin 20 Mg Tab) 20 mg PO QAM [facility] Stop: 04/21/22 08:59 Last Admin: 03/27/22 08:21 Dose: 20 mg Duloxetine HCl (Duloxetine Hcl 30 Mg Cap) 30 mg PO QAM [facility] Stop: 04/21/22 08:59 Last Admin: 03/27/22 08:22 Dose: 30 mg Enoxaparin Sodium (Enoxaparin Inj 40 Mg/0.4 Ml Syr) 40 mg SQ DAILY DEBORAH Stop: 04/26/22 08:59 Last Admin: 03/27/22 08:23 Dose: 40 mg Fluticasone/Vilanterol (Fluticasone/Vilanterol 200/25mcg 14 Puffs/Inhaler) 1 puffs INH DAILY DEBORAH Stop: 04/21/22 08:59 Last Admin: 03/27/22 08:20 Dose: 1 puffs Furosemide (Furosemide 40 Mg/4 Ml Vial) 40 mg IV BID DEBORAH Stop: 04/25/22 20:59 Last Admin: 03/27/22 08:23 Dose: 40 mg Promethazine HCl 12.5 mg/ (Sodium Chloride) 50.5 mls @ 202 mls/hr IV Q6H PRN PRN Reason: Nausea And Vomiting Stop: 04/20/22 21:26 Last Infusion: 03/22/22 16:13 Dose: Infused Levothyroxine Sodium (Levothyroxine Sodium 150 Mcg Tablet) 150 mcg PO DAILYBB [facility] Stop: 04/21/22 06:29 Last Admin: 03/27/22 05:48 Dose: 150 mcg Montelukast Sodium (Montelukast Sodium 10 Mg Tablet) 10 mg PO HS [facility] Stop: 04/20/22 21:26 Last Admin: 03/26/22 20:04 Dose: 10 mg Pantoprazole Sodium (Pantoprazole 40 Mg Tab) [facility] [place] [facility] Stop: 04/22/22 08:59 Last Admin: 03/27/22 08:22 Dose: 40 mg Potassium Chloride (Potassium Chloride 10 Meq Tabcr) 10 meq PO BID DEBORAH Stop: 04/25/22 10:59 Last Admin: 03/27/22 08:21 Dose: 10 meq Prednisone (Prednisone 5 Mg Tab) [facility] [place] Stop: 04/21/22 08:59 Last Admin: 03/27/22 08:22 Dose: 5 mg Pregabalin (Pregabalin 100 Mg Cap) 200 mg PO PM [facility] Stop: 04/20/22 21:26 Last Admin: 03/26/22 20:12 Dose: 200 mg Pregabalin (Pregabalin 100 Mg Cap) [facility] [place] Stop: 04/21/22 08:59 Last Admin: 03/27/22 08:25 Dose: 100 mg
[2022-03-27] MEDS: MONTELUKAST SODIUM 10 MG TABLET PO SCH (21:04)
[2022-03-28] MEDS: LEVOTHYROXINE SODIUM 150 MCG TABLET PO SCH (05:46)
[2022-03-28] MEDS: POTASSIUM CHLORIDE 10 MEQ TABCR PO SCH (08:26)
[2022-03-28] MEDS: FLUTICASONE/VILANTEROL 200/25MCG 14 PUFFS/INHALER INH SCH (08:26)
[2022-03-28] MEDS: ASPIRIN 81 MG ECTAB PO SCH (08:27)
[2022-03-28] MEDS: PANTOprazole 40 MG TAB PO SCH (08:27)
[2022-03-28] MEDS: allopurinoL 100 MG TAB PO SCH (08:27)
[2022-03-28] MEDS: predniSONE 5 MG TAB PO SCH (08:27)
[2022-03-28] MEDS: ATORVASTATIN 20 MG TAB PO SCH (08:27)
[2022-03-28] MEDS: DULoxetine HCL 30 MG CAP PO SCH (08:27)
[2022-03-28] MEDS: FUROSEMIDE 40 MG/4 ML VIAL IV SCH (08:28)
[2022-03-28] MEDS: ENOXAPARIN INJ 40 MG/0.4 ML SYR SQ SCH (08:30)
[2022-03-28 08:31] LABS: BUN Creatinine Ratio 30.2 (10-20); Calcium 9.6 mg/dl (8.5-10.1); Creatinine Clr Calc Pharmacy 36.2 ml/min; Est GFR (African American) 34.4 ml/min; Est GFR (Non-African American) 29.7 ml/min; Potassium 4.1 mmol/L (3.5-5.1)
[2022-03-28] MEDS: PREGABALIN 100 MG CAP PO SCH (08:35)
--- NOTE | 2022-03-28 13:43 | Discharge Summary ---
Discharge Summary Date of Service March 28, 2022 Notes For Next Care Provider -Lasix 20 mg daily was started for this patient -She was continued on home oxygen as needed with ambulation; does not need oxygen at rest -She may be able to titrate off the day oxygen completely with a few more days of continue diuresis -Consider BMP as outpatient after new Lasix 20 mg daily started -She has multiple bilateral renal cysts that need follow-up with your [facility]. Medication Changes From Visit Lasix 20 mg daily Home oxygen prescription changed from at bedtime only to at bedtime plus as needed with ambulation Admission HPI Per Admitting Provider Patient is a 82-year-old female with past medical history of hypertension, hyperlipidemia, gout, arthritis, morbid obesity, hiatal hernia, abdominal hernia presents to the ED with complaint of abdominal pain, nausea and vomiting starting in the afternoon. Patient also complains that she was not feeling well last night and could not get enough sleep. She said she was feeling hot but did not have a fever or chills. The abdominal pain is in epigastric region, nonradiating and burning type in nature. She had multiple episode of nausea and vomiting containing food particle; no blood. She said she had leftover burger that she ate yesterday. She denies any diarrhea, urinary urgency, increased tanya quency or burning micturition. She denies any chest pain, shortness of breath, weakness or numbness of any body parts, visual disturbances or headache. The patient reports that she has some word finding difficulties and is slow to response; family also noticed the same. Patient also has not taken her morning omeprazole. Patient lives by herself; walks with a walker. She is a former smoker, does not drink alcohol or other vemw-eat-pnhnkoa drugs.Her past medical history significant for gout for which she is on allopurinol and prednisone. She is also on antihypertensives for her blood pressure, Lipitor for hyperlipidemia. She had multiple surgeries including cholecystectomy and total abdominal hysterectomy in the past. On arrival to the ED, patient was hypertensive, hypoxic with 86% saturation room air and afebrile. Her labs were remarkable for hypomagnesemia with magnesium of 1.6, high since troponin of 17.8 and lipase of 499. Lactate was unremarkable. 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 head was unremarkable for any findings. Admission Exam Per Admitting Provider Physical Exam Physical Exam: Constitutional: Awake, alert, in mild distress due to abdominal pain. Respiratory: Bilateral basal crackles heard Cardiovascular: S1-S2, no murmur Chest: normal inspection of chest Abdomen: Abdomen is soft, slightly tender on deep palpation on epigastric region, bowel sound present. Musculoskeletal: no cyanosis or clubbing, extremities motor strength 5/5 Skin: no rashes, warm and dry normal turgor Neurologic: PERRL, EOMI, accommodation nl, no face palsy, no dysarthria CN's II- XI intact bilaterally and moves all extremities Psychiatric: A+Ox3, euthymic affect : deferred Principal Dx & Hospital Course #1 = Principal Diagnosis (1) Acute diastolic heart failure: (2) Gastroenteritis: (3) Hypoxia: (4) Acute renal failure: (5) Renal cyst: (6) Morbid obesity: Plan 82-year-old female presented with nausea vomiting and epigastric pain after a suspicious hamburger. CT of her abdomen was remarkable for hiatal hernia and abdominal hernia with no bowel obstruction. She also had evidence of multiple renal cysts. Her lab work was remarkable for an elevated lipase and magnesium of 1.6. She was given a GI cocktail and started on Protonix twice daily as well as a clear liquid diet. Symptoms resolved shortly thereafter and she was able to advance diet as tolerated. She did have gentle IV hydration given, and was notably hypoxic, requiring 3 L p.m. nasal cannula. An echocardiogram was performed revealing moderate concentric left ventricular hypertrophy, ejection fraction 65 to 70%, normal right ventricular systolic function, moderate aortic valve sclerosis with mild aortic regurgitation and moderate valvular aortic stenosis. She had grade 1 diastolic dysfunction noted. Notably on arrival to the emergency department she was very hypertensive with a blood pressure of more than 200 systolic. She had a fair amount of exposure to contrast with both a CT angiogram of the abdomen as well as a CT chest to rule out pulmonary embolus. Her initial creatinine was normal at 1.09 which then rapidly increased to 2.33 likely secondary to contrast nephropathy. Nephrology was consulted. Chest x- ray was performed revealing pulmonary congestion. Renal imaging revealed multiple bilateral renal cysts for which urology was consulted per their suggestion, they would like to see her in the office for a follow-up. After her kidney function improved she was started on Lasix intravenously. This improved her hypoxia which was greatly improved by the time of discharge. She was requiring 2 L/min with ambulation and will stay on her typical overnight supplemental oxygen. 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 Close primary care follow-up was recommended. Discharge Exam CONSTITUTIONAL: obese, vitals as above, generally well-appearing, NAD EYES: normal conjunctivae, no scleral icterus, ENT: external ear and nose normal, MMM, oxygen supplementation in place. NECK: trachea midline RESPIRATORY: clear to auscultation bilaterally, decreased breath sounds at bases, mild crackles bilaterally, rales or wheezes, normal respiratory effort CARDIOVASCULAR: regular rate and rhythm, 3/6 JOI heard at LSB, no gallops or rubs, no JVD, no peripheral edema, CHEST: inspection of chest was normal GASTROINTESTINAL: soft, nontender, nondistended, no guarding MUSCULOSKELETAL: strength 5/5 throughout, head is normocephalic and atraumatic SKIN: warm and dry, NEUROLOGIC: CN 2-12 grossly intact, no sensory deficit, normal cognition, normal speech, no tremor PSYCHIATRIC: alert cooperative and oriented to person, place and time. Euthymic mood, makes good eye contact, language grossly intact, recent and remote memory grossly intact. Updated Medication List Medication Instructions Recorded Confirmed Type Lactobacillus acidophilus 1 1 tab PO QAM 11/15/18 03/21/22 History billion cell tablet albuterol sulfate 90 mcg/actuation 2 puff inhalation Q4 PRN Shortness 11/15/18 03/21/22 History aerosol inhaler (Ventolin HFA) Of Breath amlodipine 5 mg tablet 5 mg PO QAM 11/15/18 03/21/22 History ascorbic acid (vitamin C) 500 mg 500 mg PO QAM 11/15/18 03/21/22 History tablet (Vitamin C) aspirin 81 mg tablet,delayed 81 mg PO QAM 11/15/18 03/21/22 History release calcium carbonate 600 mg-vitamin 1 tab PO QAM 11/15/18 03/21/22 History D3 5 mcg (200 unit) tablet (Calcium 600 + D(3)) duloxetine 30 mg capsule,delayed 30 mg PO QAM 11/15/18 03/21/22 History release ergocalciferol (vitamin D2) 10 mcg 1 tab PO QAM 11/15/18 03/21/22 History (400 unit) tablet melatonin 5 mg tablet 5 mg PO HS 11/15/18 03/21/22 History metoprolol tartrate 25 mg tablet 12.5 mg PO BID 11/15/18 03/21/22 History montelukast 10 mg tablet 10 mg PO HS 11/15/18 03/21/22 History (Singulair) pregabalin 100 mg capsule (Lyrica) See Rx Instructions .Route .COMPLEX 11/15/18 03/21/22 History vit C 50 mg-E 15 unit-zinc cit 4.5 1 tab PO QAM 11/15/18 03/21/22 History mg-lutein 2.5 mg-zeaxan chew tablet ([facility]) albuterol sulfate 2.5 mg/3 mL 2.5 mg inhalation DIRECTED PRN 03/21/22 03/21/22 History (0.083 %) solution for nebulization Shortness Of Breath Or Wheezing allopurinol 100 mg tablet 200 mg PO QAM 03/21/22 03/21/22 History atorvastatin 20 mg tablet 20 mg PO QAM 03/21/22 03/21/22 History docusate sodium 100 mg capsule 100 mg PO BID 03/21/22 03/21/22 History fluticasone propionate 230 2 puff inhalation BID 03/21/22 03/21/22 History mcg-salmeterol 21 mcg/actuation HFA inhaler (Advair HFA) iron,carbonyl 65 mg-vitamin C 125 1 tab PO 3XWK 03/21/22 03/21/22 History mg tablet,delayed release (Vitron-C) levothyroxine 150 mcg tablet 150 mcg PO DAILYBB 03/21/22 03/21/22 History lisinopril 20 mg tablet 20 mg PO QAM 03/21/22 03/21/22 History omeprazole 40 mg capsule,delayed 40 mg PO DAILYBB 03/21/22 03/21/22 History release prednisone 5 mg tablet 5 mg PO QAM 03/21/22 03/21/22 History sennosides 8.6 mg capsule (senna) 8.6 mg PO BID PRN Constipation 03/21/22 03/21/22 History Oxygen Home #1 ea 03/28/22 Rx furosemide 20 mg tablet (Lasix) 20 mg PO DAILY #30 tabs 03/28/22 Rx Hospital Stay Data Consultations 03/21/22 17:52 ED Decision to Admit Stat 03/23/22 10:38 Consult Urology Routine 03/24/22 07:30 Consult Nephrology Routine Diagnostic Imagining Performed 03/21/22 15:20 CT angio abdomen pelvis w con Stat CT angio chest dissec wo/w con Stat CT head/brain wo con Stat 03/22/22 US renal/blad retro comp Routine Pending Results Patient Have Any Pending Studies at Discharge: No Discharge Instructions Given to Patient (Per Discharging Provider) Please take all medications as instructed on discharge as below. It is recommended that you follow-up with your primary care doctor at the time and date above to ensure you are tolerating the new medication well and to order blood work for monitoring of this medications effect on your kidneys. It was a pleasure taking care of you! Please call if you have any questions or problems. You can reach a [facility] hospitalist on duty at [facility] 24 hours a day by calling [phone]. Take care of yourself. Tiffani Deras, DO [facility] Hospitalist Total Time Total Time Spent Total Time Spent (In Minutes): 60
== END 2022-03-28 15:38 | disposition home or self-care (01) | DRG 391 ==
LOC: ED 14:56 → 2W 14:56 → SUATTDRO 03-23 14:25

== ENCOUNTER 2024-07-21 21:01 | Inpatient (IN) ==
--- NOTE | 2024-07-21 21:35 | Emergency Department Note ---
History of Present Illness General Chief complaint: Shortness of Breath/Dyspnea Stated complaint: Neuro Symptoms Time Seen by Provider: 07/21/24 21:27 History of Present Illness This is an 84-year-old female presenting to the emergency department via ambulance for evaluation of shortness of breath symptoms progressively worsening over the past few days. Patient with COPD and does wear 3 L oxygen at baseline. She has history of asthma and sleep apnea. The patient intermittently has been taking her Lasix but does not believe that she has a history of CHF. She has not had fevers or chills. On ambulance arrival she was 83% and placed on nonrebreather. Patient is having intermittent numbness and tingling to her hands bilaterally. No falls, injuries, or traumas. She rates her overall discomfort a 3/10. Home Medications Medication Instructions Recorded Confirmed Type albuterol sulfate 90 mcg/actuation 2 puff inhalation Q4 PRN Shortness 11/15/18 07/22/24 History aerosol inhaler (Ventolin HFA) Of Breath Or Wheezing duloxetine 30 mg capsule,delayed 30 mg PO QAM 11/15/18 07/22/24 History release melatonin 5 mg tablet 5 mg PO HS 11/15/18 07/22/24 History metoprolol tartrate 25 mg tablet 12.5 mg PO BID 11/15/18 07/22/24 History montelukast 10 mg tablet 10 mg PO HS 11/15/18 07/22/24 History (Singulair) pregabalin 100 mg capsule (Lyrica) See Rx Instructions .Route .COMPLEX 11/15/18 07/22/24 History allopurinol 100 mg tablet 200 mg PO QAM 03/21/22 07/22/24 History docusate sodium 100 mg capsule 100 mg PO BID 03/21/22 07/22/24 History iron,carbonyl 65 mg-vitamin C 125 1 tab PO 3XWK 03/21/22 07/22/24 History mg tablet,delayed release (Vitron-C) levothyroxine 150 mcg tablet 150 mcg PO DAILYBB 03/21/22 07/22/24 History lisinopril 20 mg tablet 20 mg PO QAM 03/21/22 07/22/24 History omeprazole 40 mg capsule,delayed 40 mg PO QAM 03/21/22 07/22/24 History release prednisone 5 mg tablet 5 mg PO QAM 03/21/22 07/22/24 History Oxygen Home #1 ea 03/28/22 07/22/24 Rx amlodipine 5 mg tablet 5 mg PO QAM 03/27/23 07/22/24 History ascorbic acid (vitamin C) 500 mg 500 mg PO QAM 03/27/23 07/22/24 History tablet (Vitamin C) atorvastatin 10 mg tablet 10 mg PO 3XWK 03/27/23 07/22/24 History sennosides 8.6 mg tablet (senna) 8.6 mg PO AMHS 03/27/23 07/22/24 History Lactobacillus acidophilus 250 2,000 mmu cells PO DAILY 07/22/24 07/22/24 History million cell capsule (Probiotic Acidophilus) diphenhydramine 25 2 tab PO HS 07/22/24 07/22/24 History mg-acetaminophen 500 mg tablet (Tylenol PM Extra Strength) fluticasone fur. 200 mcg-umeclid 1 ea inhalation QAM 07/22/24 07/22/24 History 62.5 mcg-vilant 25 mcg inhalat.powder (Trelegy Ellipta) furosemide 20 mg tablet (Lasix) 20 mg PO QAM 07/22/24 07/22/24 History [id number] 5 mg-zeaxanth 3 cap PO QAM 07/22/24 07/22/24 History 1 mg-bilberry 7.5 mg-herbal capsule (Macular Health Formula) Allergies Allergy/AdvReac Type Severity Reaction Status Date / Time azathioprine Allergy Intermediate HIVES Verified 03/27/23 13:47 gabapentin Allergy Intermediate hives Verified 03/27/23 13:47 hydroxychloroquine Allergy Intermediate HIVES Verified 03/27/23 13:47 ibuprofen Allergy Intermediate HIVES Verified 03/27/23 13:47 methotrexate Allergy Intermediate hives Verified 03/27/23 13:47 minocycline Allergy Intermediate Hives Verified 03/27/23 13:47 NSAIDS (Non-Steroidal Allergy Intermediate Hives Verified 03/27/23 13:47 Anti-Inflamma phenol Allergy Intermediate hives Verified 03/27/23 13:47 risedronate sodium Allergy Intermediate HIVES Verified 03/27/23 13:47 doxepin Allergy Mild HIVES Verified 03/27/23 13:47 leflunomide Allergy Mild HIVES Verified 09/09/23 13:47 sulfasalazine Allergy Mild HIVES Verified 03/27/23 13:47 Tetracyclines Allergy Mild HIVES Verified 03/27/23 13:47 hydromorphone AdvReac Intermediate hallucinate Verified 03/27/23 13:47 couldn't walk or talk teriparatide AdvReac Intermediate MALAISE, Verified 03/27/23 13:47 LOWER LEG EDEMA AMINOQUINOLINE Allergy Intermediate HIVES--PER Uncoded 03/27/23 13:47 GMG Past Med/Surg History Problem List (Updated 07/22/24 @ 21:38 by Lenard Lechuga PA-C) Elevated troponin (Acute) Rhinovirus infection (Acute) Hypoxia (Acute) Acute metabolic encephalopathy Hyperlipidemia Viral pneumonia Hypothyroidism (acquired) Hypertension, accelerated Chronic gout Asthma with exacerbation Acute and chronic respiratory failure SOB (shortness of breath) (Acute) ERIK (obstructive sleep apnea) Nocturnal hypoxia reason for oxygen Morbid obesity Hypothyroidism Hypertension Depression Generalized weakness CKD (chronic kidney disease), stage III (HFpEF) heart failure with preserved ejection fraction Contusion of leg, right (Acute) Hernia, ventral (Acute) Pulmonary edema Community acquired pneumonia Medical History Asthma Gout Spinal stenosis GERD (gastroesophageal reflux disease) Deep vein thrombosis 2011 after knee replacement--no longer on blood thinners Bilateral cataracts Anxiety Chronic obstructive pulmonary disease On home oxygen therapy 2L hs n/c Surgical History History of total abdominal hysterectomy and bilateral salpingo-oophorectomy History of bilateral tubal ligation Status post correction of deviated nasal septum History of carpal tunnel release of both wrists History of arthroscopy of left knee History of total left knee replacement (TKR) History of bowel resection History of cholecystectomy History of colonoscopy History of esophagogastroduodenoscopy (EGD) History of tooth extraction all teeth removed History of tonsillectomy Family History Other Hypertension No family history of adverse response to anesthesia Social History Smoking Status: Never smoker Second Hand Exposure: No; Do You Dip or Chew Tobacco: No; Hx Alcohol Use: No Hx Substance Use: No Preferred Language: Nicaraguan Communication Ability: Effective Clinical Nursing Instructor Required: No Beliefs That Will Affect Care: None marital status: / Current Living Situation: Alone How many Children do You have: 5 Feels Safe at Home: Yes Safety Concerns: Feels Safe At This Time Assistive Devices: Denture - Upper, Denture - Lower, Glasses and Walker Review of Systems A total of 10 systems reviewed and were otherwise negative Physical Exam Vital Signs Vital Signs - 24 hr 07/22/24 01:06 Pulse Rate 77 VITALS: Vitals are noted on the nurse's note and reviewed by myself. Vital signs stable. GENERAL: Well-developed, well-nourished, white female, who is mildly ill- appearing but overall cooperative and comfortable HEAD: Normocephalic atraumatic. HEART: Regular rate and rhythm without murmurs gallops or rubs. LUNGS: Scattered rhonchi throughout ABDOMEN: Positive normal bowel sounds x 4. Soft, nontender, without masses or organomegaly. No guarding or rebound tenderness. MUSCULOSKELETAL: No muscle atrophy, erythema, or edema noted. Full range of motion in all extremities. NEURO: Patient was alert and oriented to person place and time. CN II through XII grossly intact. Course Administered Medications Allopurinol (Allopurinol 100 Mg Tab) 200 mg PO [facility] Stop: 08/21/24 08:59 Last Admin: 07/22/24 09:56 Dose: 200 mg Documented By: AM Amlodipine Besylate (Amlodipine Besylate 5 Mg Tab) [facility] Stop: 08/21/24 08:59 Last Admin: 07/22/24 09:56 Dose: 5 mg Documented By: AM Ascorbic Acid (Ascorbic Acid 500 Mg Tab) [facility] [place] Stop: 08/21/24 08:59 Last Admin: 07/22/24 09:56 Dose: 500 mg Documented By: AM Docusate Sodium (Docusate Sodium 100 Mg Cap) 100 mg PO BID [facility] Stop: 08/21/24 08:59 Last Admin: 07/22/24 10:13 Dose: 100 mg Documented By: AM Duloxetine HCl (Duloxetine Hcl 30 Mg Cap) [facility] [place] Stop: 08/21/24 08:59 Last Admin: 07/22/24 09:57 Dose: 30 mg Documented By: AM Fluticasone Furoate (Fluticasone Furoate 200mcg 14 Puffs/Inhaler) 1 puffs INH QAM [facility] Stop: 08/21/24 08:59 Last Admin: 07/22/24 10:01 Dose: 1 puffs Documented By: AM Furosemide (Furosemide 20 Mg Tab) 20 mg PO QAM [facility] Stop: 08/21/24 08:59 Last Admin: 07/22/24 09:57 Dose: 20 mg Documented By: AM Heparin Sodium (Porcine) (Heparin Sod 5,000 Unit/0.5 Ml Vial) 7,500 units SQ Q12 [facility] Stop: 08/21/24 08:59 Last Admin: 07/22/24 10:15 Dose: 7,500 units Documented By: AM Methylprednisolone 40 mg/ (Syringe) 0.64 mls @ 1.5 mls/min IV DAILY [facility] Stop: 08/21/24 08:59 Last Admin: 07/22/24 12:04 Dose: 1.5 mls/min Documented By: KEVIN Lactobacillus Acidophilus (Advanced Probiotic 625 Mg Capsule) 1,250 mg PO DAILY [facility] Stop: 08/21/24 08:59 Last Admin: 07/22/24 09:56 Dose: 1,250 mg Documented By: AM Levalbuterol HCl (Levalbuterol 1.25 Mg/3 Ml Neb) 1.25 mg NEB QIDR [facility] Stop: 08/21/24 06:59 Last Admin: 07/22/24 20:48 Dose: 1.25 mg Documented By: [id number] Admin: 07/22/24 14:36 Dose: 1.25 mg Documented By: Admin: 07/22/24 11:04 Dose: 1.25 mg Documented By: Admin: 07/22/24 07:00 Dose: 1.25 mg Documented By: LOUISE Levothyroxine Sodium (Levothyroxine Sodium 150 Mcg Tablet) 150 mcg PO DAILYBB [facility] Stop: 08/21/24 06:29 Last Admin: 07/22/24 08:37 Dose: 150 mcg Documented By: AM Lisinopril (Lisinopril 20 Mg Tab) 20 mg PO QAM [facility] Stop: 08/21/24 08:59 Last Admin: 07/22/24 09:59 Dose: 20 mg Documented By: AM Metoprolol Tartrate (Metoprolol Tartrate 25 Mg Tab) 12.5 mg PO BID [facility] Stop: 08/21/24 08:59 Last Admin: 07/22/24 09:57 Dose: 12.5 mg Documented By: AM Pantoprazole Sodium (Pantoprazole 40 Mg Tab) 40 mg PO QAM [facility] Stop: 08/21/24 08:59 Last Admin: 07/22/24 09:59 Dose: 40 mg Documented By: AM Prednisone (Prednisone 20 Mg Tab) 40 mg PO DAILY [facility] Stop: 08/21/24 10:29 Last Admin: 07/22/24 12:04 Dose: 40 mg Documented By: KEVIN Pregabalin (Pregabalin 100 Mg Cap) 100 mg PO QAM [facility] Stop: 08/21/24 08:59 Last Admin: 07/22/24 10:14 Dose: 100 mg Documented By: AM Sennosides (Senna 8.6 Mg Tab) 8.6 mg PO AMHS [facility] Stop: 08/21/24 08:59 Last Admin: 07/22/24 10:13 Dose: 8.6 mg Documented By: BLANCO Umeclidinium/Vilanterol (Umeclidinium/Vilanterol 62.5/25mcg 7 Puffs/Inhaler) 1 puffs [facility]H [facility] [place] Stop: 08/21/24 08:59 Last Admin: 07/22/24 10:02 Dose: 1 puffs Documented By: BLANCO Discontinued Medications Albuterol (Albut/Ipratrop 3mg/0.5mg Neb 3 Ml Vial) 3 ml NEB NOW STA; Protocol Stop: 07/21/24 21:36 Last Admin: 07/21/24 21:43 Dose: 3 ml Documented By: SHANTEL Methylprednisolone (Methylprednisolone 125 Mg/2 Ml Vial) 60 mg IV NOW STA Stop: 07/21/24 21:36 Last Admin: 07/21/24 21:43 Dose: 60 mg Documented By: JAY Medical Decision Making Differential Diagnosis Differential diagnosis includes, but is not limited to: Myocardial infarction, dysrhythmia, pericarditis, pneumothorax, aortic aneurysm/dissection, DVT/PE, anxiety, GERD, PUD, electrolyte imbalance, thyroid disorder, pneumonia, bronchitis, pancreatitis, and others Laboratory Data 07/22/24 07:10 07/22/24 07:21 Lab Results 07/21/24 07/21/24 07/21/24 Range/Units 21:11 21:15 21:45 WBC 6.71 (4.8-10.8) K/ul RBC 4.51 (4.20-5.40) M/uL Hgb 13.4 (12.0-16.0) g/dl Hct 42.4 (37.0-47.0) % MCV 94.0 (80.0-100.0) fL MCH 29.7 (25.0-34.0) pg MCHC 31.6 L (32.0-36.0) g/dL RDW Std Deviation 52.7 H (36.4-46.3) fL RDW Coeff of Nury 15.2 H (11.5-14.5) % Plt Count 142 (130-400) K/uL MPV 12.3 (9.4-12.4) fL Immature Gran % (Auto) 0.7 % Neut % (Auto) 73.1 % Lymph % (Auto) 15.4 % Spalding % (Auto) 6.6 % Eos % (Auto) 3.6 % Baso % (Auto) 0.6 % Neut # (Auto) 4.91 (1.40-6.50) K/uL Lymph # (Auto) 1.03 L (1.20-3.40) K/uL [place] # (Auto) 0.44 (0.11-0.59) K/uL Eos # (Auto) 0.24 (0.00-0.50) K/uL Baso # (Auto) 0.04 (0.00-0.20) K/uL Immature Gran # (Auto) 0.05 (0.01-0.20) K/uL PT 10.2 (9.0-12.0) Seconds INR 0.9 (0.9-1.1) APTT 26 (21-31) Seconds PTT Ratio 1.0 VBG pH 7.32 L (7.36-7.41) VBG pCO2 70 H (38-50) mmHg VBG pO2 40 mmHg VBG HCO3 36 mmol/L VBG O2 Saturation 72.0 % VBG Base Excess 7.4 mEq/L Sodium 139 (136-145) mmol/L Potassium 4.8 (3.5-5.1) mmol/L Chloride 101 (98-107) mmol/L Carbon Dioxide 35 H (21-32) mmol/L Anion Gap 3 (3-11) BUN 24 H (6-23) mg/dl Creatinine 1.15 (0.6-1.2) mg/dl Est Cr Clr Drug Dosing 49.5 ml/min eGFR 47.56 BUN/Creatinine Ratio 20.9 H (10-20) Glucose 109 H (70-99(Fasting)) mg/dl Calcium 9.5 (8.6-10.3) mg/dl Magnesium 1.9 (1.7-2.4) mg/dl Total Bilirubin 0.6 (0.2-1.0) mg/dl AST 13 (13-39) U/L ALT 8 (7-52) U/L Alkaline Phosphatase 70 (34-104) U/L Troponin I High Sens 24.0 H (0-14) pg/ml B-Natriuretic Peptide 113 H (0-100) pg/ml Total Protein 6.9 (6.0-8.3) gm/dl Albumin 4.0 (3.4-5.0) gm/dl Globulin 2.9 (2.5-4.0) gm/dl Albumin/Globulin Ratio 1.4 (0.9-2) Procalcitonin < 0.02 (0-0.5) ng/ml Adenovirus (PCR) Not Detected (NotDetected) B. pertussis DNA (PCR) Not Detected (NotDetected) B.parapertussis DNA PCR Not Detected (NotDetected) C. pneumoniae DNA (PCR) Not Detected (NotDetected) Coronavirus OC43 (PCR) Not Detected (NotDetected) Coronavirus HKU1 (PCR) Not Detected (NotDetected) Coronavirus 229E (PCR) Not Detected (NotDetected) SARS-CoV-2 (PCR) Not Detected (NotDetected) Coronavirus NL63 (PCR) Not Detected (NotDetected) Human Metapneumovir PCR Not Detected (NotDetected) Influenza Type A (PCR) Not Detected (NotDetected) Influenza Type B (PCR) Not Detected (NotDetected) M. pneumoniae (PCR) Not Detected (NotDetected) Parainfluenza 1 (PCR) Not Detected (NotDetected) Parainfluenza 2 (PCR) Not Detected (NotDetected) Parainfluenza 3 (PCR) Not Detected (NotDetected) Parainfluenza 4 (PCR) Not Detected (NotDetected) RSV (PCR) Not Detected (NotDetected) Entero/Rhino (PCR) DETECTED A (NotDetected) 07/21/24 Range/Units 23:20 WBC (4.8-10.8) K/ul RBC (4.20-5.40) M/uL Hgb (12.0-16.0) g/dl Hct (37.0-47.0) % MCV (80.0-100.0) fL MCH (25.0-34.0) pg MCHC (32.0-36.0) g/dL RDW Std Deviation (36.4-46.3) fL RDW Coeff of Nury (11.5-14.5) % Plt Count (130-400) K/uL MPV (9.4-12.4) fL Immature Gran % (Auto) % Neut % (Auto) % Lymph % (Auto) % Spalding % (Auto) % Eos % (Auto) % Baso % (Auto) % Neut # (Auto) (1.40-6.50) K/uL Lymph # (Auto) (1.20-3.40) K/uL [place] # (Auto) (0.11-0.59) K/uL Eos # (Auto) (0.00-0.50) K/uL Baso # (Auto) (0.00-0.20) K/uL Immature Gran # (Auto) (0.01-0.20) K/uL PT (9.0-12.0) Seconds INR (0.9-1.1) APTT (21-31) Seconds PTT Ratio VBG pH (7.36-7.41) VBG pCO2 (38-50) mmHg VBG pO2 mmHg VBG HCO3 mmol/L VBG O2 Saturation % VBG Base Excess mEq/L Sodium (136-145) mmol/L Potassium (3.5-5.1) mmol/L Chloride (98-107) mmol/L Carbon Dioxide (21-32) mmol/L Anion Gap (3-11) BUN (6-23) mg/dl Creatinine (0.6-1.2) mg/dl Est Cr Clr Drug Dosing ml/min eGFR BUN/Creatinine Ratio (10-20) Glucose (70-99(Fasting)) mg/dl Calcium (8.6-10.3) mg/dl Magnesium (1.7-2.4) mg/dl Total Bilirubin (0.2-1.0) mg/dl AST (13-39) U/L ALT (7-52) U/L Alkaline Phosphatase (34-104) U/L Troponin I High Sens 21.5 H (0-14) pg/ml B-Natriuretic Peptide (0-100) pg/ml Total Protein (6.0-8.3) gm/dl Albumin (3.4-5.0) gm/dl Globulin (2.5-4.0) gm/dl Albumin/Globulin Ratio (0.9-2) Procalcitonin (0-0.5) ng/ml Adenovirus (PCR) (NotDetected) B. pertussis DNA (PCR) (NotDetected) B.parapertussis DNA PCR (NotDetected) C. pneumoniae DNA (PCR) (NotDetected) Coronavirus OC43 (PCR) (NotDetected) Coronavirus HKU1 (PCR) (NotDetected) Coronavirus 229E (PCR) (NotDetected) SARS-CoV-2 (PCR) (NotDetected) Coronavirus NL63 (PCR) (NotDetected) Human Metapneumovir PCR (NotDetected) Influenza Type A (PCR) (NotDetected) Influenza Type B (PCR) (NotDetected) M. pneumoniae (PCR) (NotDetected) Parainfluenza 1 (PCR) (NotDetected) Parainfluenza 2 (PCR) (NotDetected) Parainfluenza 3 (PCR) (NotDetected) Parainfluenza 4 (PCR) (NotDetected) RSV (PCR) (NotDetected) Entero/Rhino (PCR) (NotDetected) Imaging Data Radiologist's Impression: Chest X-Ray 07/21/24 21:31 Exam(s): XR CXR 1 VIEW EXAM: XR Chest, 1 View CLINICAL HISTORY: Dyspnea. TECHNIQUE: Frontal view of the chest. COMPARISON: Chest radiograph 03/27/2023 FINDINGS: Lungs: Bilateral airspace opacities may represent pulmonary edema and/or atypical infection. Pleural space: Small bilateral pleural effusions. No pneumothorax. Heart: Cardiomegaly. Mediastinum: Unremarkable. Normal mediastinal contour. Bones/joints: Degenerative changes of the spine are noted. No acute fracture. IMPRESSION: 1. Bilateral airspace opacities may represent pulmonary edema and/or atypical infection. 2. Cardiomegaly. 3. Small bilateral pleural effusions. Electronically signed by: Jenn Tucker MD 07/22/24 02:01 AM ECG Data Attestation: I personally reviewed and interpreted this ECG as follows: Indication: + SOB/dyspnea Additional Comments: Sinus rhythm with first-degree AV block at 64 bpm Right bundle branch block 2 EKG 27 March 2020 T wave inversion no longer evident in anterior leads MDM Narrative Physical exam and history were performed. Nursing notes, EMR, and Medication List were personally reviewed. No social concerns were identified as barriers to patients care. Patient appears to have shortness of breath bringing her to the ER. She is oxygen dependent at night, however she is with hypoxia for EMS and on arrival to the ER. The patient appears ill but not toxic. She is responding to oxygen on a nonrebreather. IV access was established and labs were obtained. Patient was given a DuoNeb and IV Solu-Medrol. Chest x-ray performed. An order was placed for continuous cardiac monitoring. The monitor shows a rate of 82 with normal sinus rhythm. Blood work is as above and was reviewed. She does not have a significantly elevated white blood cell count, gross anemia, bandemia, or significant electrolyte imbalance. She is retaining CO2 with a pCO2 of 70 on her VBG. Her troponin is slightly elevated, however her EKG does not seem ischemic. This may be from some respiratory demand. Transaminases are not diagnostic. BNP is only slightly elevated at 113. Chest x-ray was performed and independently reviewed by myself and radiology showing some nonspecific opacities. This could represent infection. BioFire is positive for entero-/rhinovirus, which is likely exacerbating her underlying respiratory disease. Escalation of care is necessary. Case was discussed with the on-call hospitalist who agreed to evaluate the patient here in the ER. Please see their dictation for further patient course, plan, disposition. The chart was completed utilizing [employer] Voice Recognition Software. Grammatical errors, random word insertions, pronoun errors, and incomplete sentences are an occasional consequence of this system due to software limitations, ambient noise, and hardware issues. Any formal questions or concerns about the content, text, or information contained within the body of this dictation should be directly addressed to the provider for clarification. Impression & Plan SOB (shortness of breath), Hypoxia, Rhinovirus infection, Elevated troponin Discharge Plan Visit Data Chief Complaint: Shortness of Breath/Dyspnea Stated Complaint: Neuro Symptoms ED Provider: Gokul Medellin ED Midlevel Provider: Lenard Lechuga Discharge Problem: SOB (shortness of breath), Hypoxia, Rhinovirus infection, Elevated troponin Patient Disposition: Admitted As Inpatient Discharge Instructions Interventions: ED Discharge Assessment Last Done: 07/22/24 03:34
[2024-07-21] MEDS: ALBUT/IPRATROP 3MG/0.5MG NEB 3 ML VIAL NEB STA (21:43)
[2024-07-21] MEDS: methylPREDNISolone 125 MG/2 ML VIAL IV STA (21:43)
[2024-07-21 21:50] LABS: Basophils # (auto) 0.04 K/uL (0.00-0.20); Basophils % (auto) 0.6 %; Eosinophils # (auto) 0.24 K/uL (0.00-0.50); Eosinophils % (auto) 3.6 %; Hematocrit (blood only) 42.4 % (37.0-47.0); Hemoglobin 13.4 g/dl (12.0-16.0); Immature Granulocytes # (auto) 0.05 K/uL (0.01-0.20); Immature Granulocytes % (auto) 0.7 %; Lymphocytes # (auto) 1.03 K/uL (1.20-3.40); Lymphocytes % (auto) 15.4 %; Mean Corpuscular Hemoglobin 29.7 pg (25.0-34.0); Mean Corpuscular Hgb Conc 31.6 g/dL (32.0-36.0); Mean Platelet Volume 12.3 fL (9.4-12.4); Monocytes # (auto) 0.44 K/uL (0.11-0.59); Monocytes % (auto) 6.6 %; Neutrophils # (auto) 4.91 K/uL (1.40-6.50); Neutrophils % (auto) 73.1 %; Platelet Count 142 K/uL (130-400); RDW Coefficient of Variation 15.2 % (11.5-14.5); RDW Standard Deviation 52.7 fL (36.4-46.3); Red Blood Count 4.51 M/uL (4.20-5.40); White Blood Count 6.71 K/ul (4.8-10.8)
[2024-07-21 21:54] LABS: Base Excess VBG 7.4 mEq/L; HCO3 VBG 36 mmol/L; PCO2 VBG 70 mmHg (38-50); PO2 VBG 40 mmHg; pH VBG 7.32 (7.36-7.41)
[2024-07-21 22:01] LABS: Albumin Globulin Ratio 1.4 (0.9-2); BUN Creatinine Ratio 20.9 (10-20); Bilirubin,Total 0.6 mg/dl (0.2-1.0); Calcium 9.5 mg/dl (8.6-10.3); Creatinine Clr Calc Pharmacy 49.5 ml/min; Globulin 2.9 gm/dl (2.5-4.0); Magnesium 1.9 mg/dl (1.7-2.4); Potassium 4.8 mmol/L (3.5-5.1); Total Protein 6.9 gm/dl (6.0-8.3)
[2024-07-21 22:14] LABS: INR 0.9 (0.9-1.1); Partial Thromboplastin Time 26 Seconds (21-31); Prothrombin Time 10.2 Seconds (9.0-12.0)
[2024-07-21 22:52] LABS: Adenovirus PCR Not Detected (NotDetected); Bordetella parapertussis PCR Not Detected (NotDetected); Bordetella pertussis PCR Not Detected (NotDetected); Chlamydia pneumoniae PCR Not Detected (NotDetected); Coronavirus 229E PCR Not Detected (NotDetected); Coronavirus CoV-2 (COVID19)PCR Not Detected (NotDetected); Coronavirus HKU1 PCR Not Detected (NotDetected); Coronavirus NL63 PCR Not Detected (NotDetected); Coronavirus OC43PCR Not Detected (NotDetected); Human Metapneumovirus PCR Not Detected (NotDetected); Influenza A PCR Not Detected (NotDetected); Influenza B PCR Not Detected (NotDetected); Mycoplasma pneumoniae PCR Not Detected (NotDetected); Parainfluenza Virus 1 PCR Not Detected (NotDetected); Parainfluenza Virus 2 PCR Not Detected (NotDetected); Parainfluenza Virus 3 PCR Not Detected (NotDetected); Parainfluenza Virus 4 PCR Not Detected (NotDetected); Respiratory Syncytial VirusPCR Not Detected (NotDetected); Rhinovirus/Enterovirus PCR DETECTED (NotDetected)
--- NOTE | 2024-07-22 02:01 | XRay Report ---
Exam(s): XR CXR 1 VIEW EXAM: XR Chest, 1 View CLINICAL HISTORY: Dyspnea. TECHNIQUE: Frontal view of the chest. COMPARISON: Chest radiograph 03/27/2023 FINDINGS: Lungs: Bilateral airspace opacities may represent pulmonary edema and/or atypical infection. Pleural space: Small bilateral pleural effusions. No pneumothorax. Heart: Cardiomegaly. Mediastinum: Unremarkable. Normal mediastinal contour. Bones/joints: Degenerative changes of the spine are noted. No acute fracture. IMPRESSION: 1. Bilateral airspace opacities may represent pulmonary edema and/or atypical infection. 2. Cardiomegaly. 3. Small bilateral pleural effusions. Electronically signed by: Jenn Tucker MD 07/22/24 02:01 AM
--- OUTSIDE RECORDS SUMMARY | 2024-07-22 02:16 | External Medical Summary | Summary of Care ---
Author Name Unknown Organization [facility] Address [address] [place] [address] Phone [phone] Care Team Providers Care Medical Director Occupational Health Name Role Phone Xavier Zavala MD Primary Care Provide r Reason for Referral * Precert (Diagnostic Medical) (Within 10 days (routine)) - Authorized Specialty Diagnoses / Procedures Referred By Contac t Referred To Contact Cardiac Studies Diagnoses Ascending aorta enlargement (HCC) Nonrheumatic aortic valve stenosis Nonrheumatic aortic valve insufficiency Hypertensive heart failure (HCC) Procedures ECHO, COMPLETE (2D), TRANS-THORACIC Akshat Che PA-C [address] [place] [address] Phone: tel: fax: Referral ID Status Reason Start Date Expiration Date V isits Requested Visits Authorized [id number] Authorized Precert 01/01/2025 999 999 Reason for Visit * Reason Onset Date Comments Information 07/03/2024 Encounter Details Date Type Department Care Team (Late st Contact Info) Description 07/03/2024 Telephone Cardiology, [facility] [address] [place] [address] Akshat Che PA-C [address] [place] [address] Information Allergies Active Allergy Reactions Criticality Noted Date Comments Bisphosphonates Hives,Other (Please comment),Rash Medium 12/18/2005 Dysphagia Aminoquinolines Hives Medium 02/27/2009 Hydromorphone Hcl Unknown 06/30/2018 Gabapentin Hives Low 02/27/2009 Azathioprine Sodium Hives Low 02/27/2009 Iodinated Contrast Media Medium 06/30/2022 Methotrexate Hives Low 02/27/2009 Minocycline Hcl Hives Low 02/27/2009 Calcium Channel Blockers Unknown Low 11/03/2005 Nsaids Hives Low 02/27/2009 Luflunomide also causes hives Parathyroid Hormone (Recomb) Edema Other,Other (Please comment) Low 02/27/2009 General malaise Lower extremity edema documented as of this encounter (statuses as of 07/20/2024) Medications Melatonin 5 MG Tablet Daily at bedtime Active Lactobacillus (PROBIOTIC ACIDOPHILUS) TABS Take 1 Tab by mouth daily. Active home oxygen/equipment IN GAS Inhale 3 L by mouth at bedtime. Active Tylenol PM Extra Strength 500-25 MG Oral Tablet (diphenhydrAMINE-A PAP (sleep)) Take 2 Tablets by mouth at bedtime. Active Albuterol Sulfate HFA 108 (90 Base) MCG/ACT Inhalation Aerosol SolutionIndication s:Mild persistent asthma without complication INHALE TWO PUFFS BY MOUTH EVERY 4 HOURS NEEDED FOR SHORTNESS OF BREATH OR FOR WHEEZING (BULK) 18 g 5 10/15/19 23 Active Docusate Sodium 100 MG Oral Capsule (Colace)Indication s:Constipation, unspecified constipation type Take 1 Capsule by mouth in the morning and 1 Capsule before bedtime. 180 Capsule 1 10/15/19 23 Active Additional Information Patient taking differently:100 mg OralPRN, Reported on 06/13/2024 Senna 8.6 MG Oral CapsuleIndications :Constipation, unspecified constipation type,Abdominal pain, generalized Take 8.6 mg by mouth in the morning and 8.6 mg before bedtime. 180 Capsule 1 10/15/19 23 Active Allopurinol 100 MG Oral Tablet (Zyloprim)Indicati ons:Chronic gout due to renal impairment of multiple sites without tophus Take 2 Tablets by mouth in the morning. 180 Tablet 4 08/04/19 24 Active Atorvastatin Calcium 10 MG Oral Tablet (Lipitor)Indicatio ns:Dyslipidemia, goal LDL below 100 TAKE 1 TABLET BY MOUTH ON WEDNESDAY, WEDNESDAY AND WEDNESDAY 40 Tablet 3 09/24/19 24 Active predniSONE 5 MG Oral Tablet (Deltasone)Indicat ions:Arthritis of knee TAKE ONE TABLET BY MOUTH IN THE MORNING 90 Tablet 3 10/22/19 24 Active Vitron-C 65-125 MG Oral Tablet (Iron-Vitamin C 65-125 mg per tab)Indications:Ir on deficiency anemia, unspecified iron deficiency anemia type TAKE 1 TABLET BY MOUTH ON WEDNESDAY, WEDNESDAY AND WEDNESDAY 45 Tablet 3 10/22/19 24 Active Restasis 0.05 % Ophthalmic Emulsion 11/16/19 24 Active Macular Health Formula Oral Capsule Take 3 Capsules by mouth every morning. Active Lisinopril 20 MG Oral Tablet (Prinivil)Indicati ons:Hypertensive kidney disease with stage 3b chronic kidney disease (HCC) TAKE ONE TABLET BY MOUTH IN THE MORNING 90 Tablet 3 12/17/19 24 Active Furosemide 20 MG Oral Tablet (Lasix)Indications :Acute heart failure with preserved ejection fraction (HCC) TAKE ONE TABLET BY MOUTH IN THE MORNING 90 Tablet 3 12/17/19 24 Active amLODIPine Besylate 5 MG Oral Tablet (Norvasc)Indicatio ns:HTN, goal below 140/90 TAKE ONE TABLET IN THE MORNING 90 Tablet 1 05/05/20 24 Active Montelukast Sodium 10 MG Oral Tablet (Singulair) TAKE ONE TABLET AT BEDTIME 90 Tablet 1 05/05/20 24 Active Metoprolol Tartrate 25 MG Oral Tablet (Lopressor)Indicat ions:HTN, goal below 140/90 TAKE 1/2 TABLET TWICE DAILY 90 Tablet 1 05/05/20 24 Active DULoxetine HCl 30 MG Oral Capsule Delayed Release Particles (Cymbalta)Indicati ons:Spinal stenosis of lumbar region, unspecified whether neurogenic claudication present,Recurrent major depressive disorder, in partial remission (HCC),Arthritis of knee TAKE ONE CAPSULE IN THE MORNING 90 Capsule 1 05/05/20 24 Active Levothyroxine Sodium 150 MCG Oral Tablet (Levoxyl)Indicatio ns:Acquired hypothyroidism TAKE ONE TABLET IN THE MORNING 90 Tablet 1 05/05/20 24 Active Trelegy Ellipta 200-62.5-25 MCG/ACT Aerosol Powder Breath Activated (Fluticasone-Umecl idinium-Vilanterol )Indications:Mild persistent asthma without complication Inhale 1 Puff by mouth in the morning. 60 Blister Dosing Unit 1 05/17/20 24 Active Omeprazole 40 MG Oral Capsule Delayed Release (PriLOSEC)Indicati ons:Abdominal pain, generalized TAKE ONE CAPSULE IN THE MORNING 90 Capsule 1 06/02/20 24 Active Pregabalin 100 MG Oral Capsule (Lyrica)Indication s:Small fiber neuropathy TAKE ONE CAPSULE BY MOUTH IN THE MORNING AND TWO CAPSULES in the evening 270 Capsule 06/08/20 24 Active Vitamin C 500 MG Oral Tablet (Ascorbic Acid) Take 1 Tablet by mouth in the morning. Active Hospital, Clinic, or Other Facility Administered Medication Ordered Dose Route Frequency Start Date End Date Status albuterol sulfate (PROVENTIL) (2.5 MG/3ML) 0.083% inhalation solution 2.5 mgIndications:Moderate persistent asthma without complication 2.5 mg NEBULIZER [id number] 07/22/2018 Active documented as of this encounter (statuses as of 07/20/2024) Active Problems Problem Noted Date Diagnosed Date Hx of nonmelanoma skin cancer 03/01/2024 Overview (03/01/2024): Lilibeth (R mid helix of ear 03/11) Chronic hypoxemic respiratory failure 10/20/2023 Hypertensive heart failure 10/14/2022 Ascending aorta enlargement 10/14/2022 Hyperparathyroidism, 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/14/2022 Ventral hernia without obstruction or gangrene 0 04/01/2022 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 05/13/2020 Moderate episode of recurrent major depressive d isorder 01/22/2020 Mild persistent asthma 05/31/2019 Need for prophylactic vaccin ation and inoculation against influenza 05/31/2019 At risk for aspiration 05/31/2019 Morbid obesity with body mass index of 50.0-59.9 in adult 06/30/2018 Nocturnal hypoxia 06/30/2018 Spinal stenosis of lumbar region 11/24/2017 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 Dyslipidemia, goal LDL below 100 01/03/2016 Primary osteoarthritis of fi rst carpometacarpal joint of left hand 01/03/2016 Pseudogout 01/03/2016 Incisional hernia 01/03/2015 Chronic kidney disease with symptom management only, stage 3 (moderate) 10/01/2014 Overview: Per CKD protocol #1 Small fiber neuropathy 05/30/2014 HTN, goal below 140/90 12/21/2013 History of DVT (deep vein thrombosis) 10/16/2013 Overview (10/16/2013): Pos-op knee replacement 2011 Vitamin D deficiency 08/24/2013 Senile osteoporosis 06/14/2012 Current moderate episode of major depressive dis order 05/20/2011 Overview (05/11/2017): ICD-10 update of inactive term Diverticulosis of colon 04/15/2011 Meralgia paresthetica 02/27/2011 Arthritis of knee Acquired hypothyroidism Hiatal hernia Overview (06/06/2024): Large documented as of this encounter (statuses as of 07/20/2024) Resolved Problems Problem Noted Date Diagnosed Date Resolved Date CKD (chronic kidney disease) stage 4, GFR 15-29 ml/min 10/14/2022 01/11/2023 Acute heart failure with pre served ejection fraction 04/01/2022 10/20/2023 Hypertensive kidney disease with chronic kidney disease stage III 04/03/2019 08/01/2020 Bronchiectasis without complication 01/05/2019 05/14/2021 COPD, group B, by GOLD 2017 classification 12/26/2018 05/31/2019 Overview: Per COPD GOLD Classification Body mass index (BMI) of 50. 0 to 59.9 in adult 04/19/2017 06/30/2018 Overview: Per Obesity protocol #1 Persistent insomnia 01/23/2015 06/30/20 18 Elevated plasma metanephrines 02/12/2014 04/11/2019 CKD (chronic kidney disease) stage 2, GFR 60-89 ml/min 12/21/2013 01/23/2015 Kidney disease, chronic, sta ge III (GFR 30-59 ml/min) 12/07/2011 12/21/2013 Overview (12/10/2011): Per CKD protocol #1 COPD, mild 04/15/2011 12/28/2018 Overview: Per COPD GOLD Classification Hypertensive heart failure 05/16/2009 1 Overview (05/16/2009): Per Heart Failure Taxonomy Protocol. ADVANCE DIRECTIVE INFORMATION 11/03/2005 05/22/2024 Overview (11/03/2005): Yes, Patient instructed to provide copy of advance directive for provider to review and to be scanned into Electronic Medical Record Esophagitis 06/30/2018 Hypertensive heart failure 1 Overview (05/16/2009): Per Heart Failure Taxonomy Protocol. Ankylosing spondylitis 11/24 documented as of this encounter (statuses as of 07/20/2024) Immunizations Name Administration Dates Next Due Hepatitis B, 20+ yrs 12/09/2020,08/01/2020,06/07 Pneumococcal Conjugate Vacc, 13 Valent (Prevnar) 08/21/2014 Pneumococcal Polysaccharide PPV23 (Pneumovax) 04/03/2011 Seasonal Influenza Vac., MDV , IM, 0.5 mL (Fluzone) 05/30/2014,04/20/2013,05/30/2012,04/15,04/20/2006 Seasonal Influenza, High Dos e, Trivalent, PF, IM (Fluzone HD) 06/13/2024 Seasonal Influenza, PF, 6 M & above, IM , (FluLaval or Fluzone) 05/19/2018 Seasonal Influenza, Quadriva lent Hd (Fluzone Hd) 05/06/2022,04/24/2021 Seasonal Influenza, Quadriva lent Hd, 65+ Yrs 05/03/2023 Seasonal Influenza, Quadriva lent, No Preserve, IM 07/07/2016,06/03/2015 Seasonal Influenza, Trivalen t, Adjuvanted, 65+ YRS, PF, (Fluad) 05/19/2020,05/31/2019 Varicella Zoster Vaccine (Adult) 05/19/2012 documented as of this encounter Social History Tobacco Use Types Packs/Day Years Used Date Smoking Tobacco: Former Cigarettes 0.3 12 0 07/19/1958 - 1970 Smokeless Tobacco: Never Alcohol Use Standard Drinks/Week Comments No 0 (1 standard drink = 0.6 oz pur e alcohol) PHQ-2 Answer Date Recorded PHQ-2 Score 0 01/22/2020 Hunger Vital Sign Answer Date Recorded Worried About Running Out of Food in the Last Ye ar Never true 04/11/2019 Ran Out of Food in the Last Year Never true 04/11/2019 Comments No Sex and Gender Information Value Date Recorded Sex Assigned at Not on file Legal Sex Female 5:27 AM EST Gender Identity Not on file Sexual Orientation Not on file documented as of this encounter Miscellaneous Notes * Telephone Encounter - Fredis Lopez OSA - 07/03/2024 10:17 AM EST Patient has been called and scheduled on: ECHOCARDIOGRAM at 2:30 PM (60 min) Wednesday January 01, 2025 Appointment Provider:VIJI KING in [facility] HARLAN MARTINEZ * Telephone Encounter - Maggy Brewer LPN - 07/03/2024 10:06 AM EST Spoke with patient by phone, gave information in this encounter. Verbalized understanding Agreed to plan of care. Orders pended. Scheduling please assist with echo appointment * Telephone Encounter - Maggy Brewer LPN - 07/03/2024 10:04 AM EST ----- Message from Akshat Che sent at 07/01/2024 2:18 PM EST ----- June 29, 2024 TTE Interpretation Summary (as per Dr. Dyer): There was sinus bradycardia duringthe examination. The left ventricular cavity size is normal. The LV wall thickness is severely increased (concentric). The left ventricular wall motion is normal. The qualitative LV ejection fractionis 65-69% (normal). The left ventricular diastolic function is mildly abnormal (grade I). The aortic valve is moderately calcified. Moderate aortic valve stenosis is present. Moderate to severe aortic insufficiency is present There is severe calcification of the posterior mitral valve annulus with restricted posterior mitral valve leaflet mobility Echo reveals progressive aortic valve disease, now with moderate aortic valve stenosis and moderateto severe aortic insufficiency. LVH is now severe; this may be due to longstanding hypertension versus other. Patient was feeling OK when evaluated in May. Repeat resting echocardiography is 6 months. documented in this encounter Plan of Treatment Upcoming Encounters Date Type Department Care Team (Late st Contact Info) Description 07/31/2024 1:00 PM EST Office Visit Pulmonary Medicine, [facility] [address] [facility] [place] [address] Deep Frank MD [address] [place] [address] 01/01/2025 2:30 PM EDT Cardiac Studies Cardiac Studies, [facility] [address] [facility] [place] [address] 01/09/2025 3:00 PM EDT Office Visit Pulmonary Medicine, [facility] [address] [facility] [place] [address] Deep Frank MD [address] [place] [address] 01/24/2025 2:20 PM EDT Office Visit Family Medicine [address] [place] [phone] Xavier Zavala MD [address] [place] [address] [place] [address] 01/25/2025 2:30 PM EDT Office Visit Cardiology [address] [place] [address] Akshat Che PATreyC [address] [facility] [place] [address] 03/05/2025 2:20 PM EDT Office Visit Dermatology [address] [place] [address] Lois Batista PA-C [address] [place] [address] [place] [address] 08/15/2025 2:20 PM EST Office Visit Family Medicine [address] [phone] Xavier Zavala MD [address] [place] [address] [place] [address] Scheduled Orders Name Type Priority Associated Diagnoses Orde r Schedule ECHO, COMPLETE (2D), TRANS-THORACIC Echocardiology Routine Ascending aorta enlargement (HCC) Nonrheumatic aortic valve stenosis Nonrheumatic aortic valve insufficiency Hypertensive heart failure (HCC) Expected: 01/01/2025 (Approximate), Expires: 08/03/2026 Health Maintenance Due Date Last Done Comments DTap/Tdap Vaccines (1 - Tdap) 1959 Adult Wellness Visit 2008 Zoster Vaccines (2 of 3) 07/14/2012 05/19/2012 Depression Monitoring 01/21/2021 01/22/2020 *BISPHONATE OR OTHER ACCEPTABLE MEDICATION NEEDED FOR OSTEOPOROSIS (REFER TO SMARTSET #1146) 07/03/2022 CKD HGB USE SMARTSET 69476 06/30/202306/30, 11/04/2021, 07/30/2021, Additional history exists CKD PHOS USE SMARTSET 45379 06/30/202306/18, 08/25/2021, 09/12/2020, Additional history exists COVID-19 Vaccine ( - season) 2024 GFR 04/20/2024 10/20/2023, 03/20, 01/07/2023, Additional history exists DXA Scan 08/03/2024 08/03/2022, 03/20, 02/04/2012 Albumin/Creatinine Ratio 10/19/2024 024, 06/30/2022, 08/25/2021, Additional history exists TSH 10/19/2024 10/20/2023, 12/18, 06/23/2021, Additional history exists Pneumococcal Vaccine: 50+ Years Completed 08/21/2014, 04/03/2011 Hepatitis B Vaccine Completed 12/09/2020, 08/01/2020, 06/07/2020 VITAMIN D LEVEL ONCE IN A LIFETIME-USE SMARTSET# [id number] Completed 06/30/2022, 08/25/2021, 01/16/2020, Additional history exists Influenza Vaccine (FLU shot) Completed , 05/03/2023, 05/06/2022, Additional history exists HPV (Gardasil) Vaccine Aged Out No lo nger eligible based on patient's age to complete this topic MENINGOCOCCAL (MENACTRA/MENVEO) Aged Out No longer eligible based on patient's age to complete this topic documented as of this encounter Medical Devices Not on filedocumented as of this encounter Visit Diagnoses Diagnosis Nonrheumatic aortic valve stenosis- Primary Aortic valve disorders Ascending aorta enlargement (HCC) Other specified disorders of arteries and arterioles Nonrheumatic aortic valve insufficiency Aortic valve disorders Hypertensive heart failure (HCC) Unspecified hypertensive heart disease with heart failure documented in this encounter Care Teams Medical Director Occupational Health Relationship Specialty Start Date End Date Xavier Zavala MD [address] [place] [address] [place] [phone] PCP - General Family Medicine 04/28/21 documented as of this encounter
--- OUTSIDE RECORDS SUMMARY | 2024-07-22 02:16 | External Medical Summary | Summary of Care ---
Author Name Unknown Organization [facility] Address [address] [place] [facility] [place] [address] Phone [phone] Care Team Providers Care Instructor Trainer Canine Service Name Role Phone Xavier Zavala MD Primary Care Provide r Encounter Details Date Type Department Care Team (Late st Contact Info) Description 06/06/2024 Orders Only PATIENT PORTAL DO NOT DELETE THIS DEPT USED BY [place] [id number] Allergies Active Allergy Reactions Criticality Noted Date [...] as of this encounter (statuses as of 06/06/2024) Medications ERGOCALCIFEROL 400 UNIT PO TABS 1 tab daily Activ e Melatonin 5 MG Tablet Daily at bedtime [...] and 1 Capsule before bedtime. 180 Capsule 10/15/19 23 Active Additional Information Patient taking differently:100 mg OralPRN, Reported on 11/30/2023 Senna 8.6 MG Oral CapsuleIndications :Constipation, unspecified constipation type,Abdominal pain, generalized Take 8.6 mg by mouth in the morning and 8.6 mg before bedtime. 180 Capsule 10/15/19 23 Active Allopurinol 100 MG Oral [...] MORNING 90 Tablet 3 12/17/19 24 Active Pregabalin 100 MG Oral Capsule (Lyrica)Indication s:Small fiber neuropathy TAKE ONE CAPSULE BY MOUTH IN THE MORNING AND TWO CAPSULES in the evening 270 Capsule 03/13/20 24 Active amLODIPine Besylate 5 MG Oral [...] MORNING 90 Capsule 1 06/02/20 24 Active Hospital, Clinic, or Other Facility Administered Medication Ordered Dose Route Frequency Start Date End Date Status albuterol sulfate (PROVENTIL) (2.5 MG/3ML) 0.083% inhalation solution 2.5 mgIndications:Moderate persistent asthma without complication 2.5 mg NEBULIZER [id number] 07/22/2018 Active documented as of this encounter (statuses as of 06/06/2024) Active Problems Problem Noted Date Diagnosed Date [...] paresthetica 02/27/2011 Arthritis of knee Acquired hypothyroidism documented as of this encounter (statuses as of 06/06/2024) Resolved Problems Problem Noted Date Diagnosed Date [...] as of this encounter (statuses as of 06/06/2024) Immunizations Name Administration Dates Next Due Hepatitis B, 20+ yrs 12/09/2020,08/01/2020,06/07 Pneumococcal Conjugate Vacc, 13 Valent (Prevnar) 08/21/2014 Pneumococcal Polysaccharide PPV23 (Pneumovax) 04/03/2011 Seasonal Influenza Vac., MDV , IM, 0.5 mL (Fluzone) 05/30/2014,04/20/2013,05/30/2012,04/15,04/20/2006 Seasonal Influenza, PF, 6 M & above, [...] on file documented as of this encounter Plan of Treatment Upcoming Encounters Date Type Department Care Team (Late st Contact Info) Description 06/12/2024 9:00 AM EST Office Visit Pulmonary Medicine, [facility] [address] [facility] [place] [address] Rubin Crock[facility] [address] [facility] [address] 06/13/2024 2:30 PM EST Office Visit Cardiology [address] [place] [address] Akshat Che PATreyC [address] [place] [address] 06/29/2024 3:30 PM EST Cardiac Studies [facility] [place] [address] 01/09/2025 3:00 PM EDT Office Visit Pulmonary Medicine, [facility] [address] [facility] [place] [address] Deep Frank MD [address] [place] [address] 01/24/2025 2:20 PM EDT Office Visit Family Medicine [address] [place] [phone] Xavier Zavala MD [address] [place] [address] [place] [address] 03/05/2025 2:20 PM EDT Office Visit Dermatology [address] [place] [address] Lois Batista PA-C [address] [place] [address] [place] [address] 08/15/2025 2:20 PM EST Office Visit Family [address] [place] [phone] Xavier Zavala MD [address] [place] [address] [place] [address] Health Maintenance Due Date Last Done Comments DTap/Tdap Vaccines (1 - Tdap) 1959 Adult Wellness Visit 2008 Zoster Vaccines (2 of 3) 07/14/2012 05/19/2012 Depression Monitoring 01/21/2021 01/22/2020 *BISPHONATE OR OTHER ACCEPTABLE MEDICATION NEEDED FOR OSTEOPOROSIS (REFER TO SMARTSET #1146) 07/03/2022 CKD HGB USE SMARTSET 16773 06/30/202306/30, 11/04/2021, 07/30/2021, Additional history exists CKD PHOS USE SMARTSET 49751 06/30/202306/18, 08/25/2021, 09/12/2020, Additional history exists COVID-19 Vaccine ( season) 2024 Influenza Vaccine (FLU shot) (#1) 2024 05/03/2023, 05/06/2022, 04/24/2021, Additional history exists GFR 04/20/2024 10/20/2023, 03/20, 01/07/2023, Additional history exists DXA Scan 08/03/2024 08/03/2022, 03/20, 02/04/2012 Albumin/Creatinine Ratio 10/19/2024 024, 06/30/2022, 08/25/2021, Additional history exists TSH 10/19/2024 10/20/2023, 12/18, 06/23/2021, Additional history exists Pneumococcal Vaccine: 65+ Years Completed 08/21/2014, 04/03/2011 Hepatitis B Vaccine Completed 12/09/2020, 08/01/2020, 06/07/2020 VITAMIN D LEVEL ONCE IN A LIFETIME-USE SMARTSET# [id number] Completed 06/30/2022, 08/25/2021, 01/16/2020, Additional history exists HPV (Gardasil) Vaccine Aged Out No lo nger eligible based on patient's age to complete this topic MENINGOCOCCAL (MENACTRA/MENVEO) Aged Out No longer eligible based on patient's age to complete this topic documented as of this encounter Medical Devices Not on filedocumented as of this encounter Care Teams Instructor Trainer Canine Service Relationship Specialty Start Date End Date Xavier Zavala MD [address] [place] [address] [place] [phone] PCP - General Family Medicine 04/28/21 documented as of this encounter
--- OUTSIDE RECORDS SUMMARY | 2024-07-22 02:16 | External Medical Summary | Summary of Care ---
Author Name Unknown Organization [facility] Address [address] [place] [address] Phone [phone] Care Team Providers Care Milling Operator Name Role Phone Xavier Zavala MD Primary Care Provide r Reason for Visit * Reason Comments eRx-Medication Refill Encounter Details Date Type Department Care Team (Late st Contact Info) Description 06/04/2024 Refill Family Medicine [address] [phone] Xavier Zavala MD [address] [place], [place] [address] [id number] Small fiber neuropathy Allergies Active Allergy Reactions Criticality Noted Date [...] as of this encounter (statuses as of 06/08/2024) Medications ERGOCALCIFEROL 400 UNIT PO TABS 1 tab daily A ctive Melatonin 5 MG Tablet Daily at bedtime Active Lactobacillus (PROBIOTIC ACIDOPHILUS) TABS Take 1 Tab by mouth daily. Active home oxygen/equipment IN GAS Inhale 3 L by mouth at bedtime. Active Tylenol PM Extra Strength 500-25 MG Oral Tablet (diphenhydrAMINE- APAP (sleep)) Take 2 Tablets by mouth at bedtime. Active Albuterol Sulfate HFA 108 (90 Base) MCG/ACT Inhalation Aerosol SolutionIndicatio ns:Mild persistent asthma without complication INHALE TWO PUFFS BY MOUTH EVERY 4 HOURS NEEDED FOR SHORTNESS OF BREATH OR FOR WHEEZING (BULK) 18 g 5 023 Active Docusate Sodium 100 MG Oral Capsule (Colace)Indicatio ns:Constipation, unspecified constipation type Take 1 Capsule by mouth in the morning and 1 Capsule before bedtime. 180 Capsule 023 Active Additional Information Patient taking differently:100 mg OralPRN, Reported on 11/30/2023 Senna 8.6 MG Oral CapsuleIndication s:Constipation, unspecified constipation type,Abdominal pain, generalized Take 8.6 mg by mouth in the morning and 8.6 mg before bedtime. 180 Capsule 023 Active Allopurinol 100 MG Oral Tablet (Zyloprim)Indicat ions:Chronic gout due to renal impairment of multiple sites without tophus Take 2 Tablets by mouth in the morning. 180 Tablet 4 024 Active Atorvastatin Calcium 10 MG Oral Tablet (Lipitor)Indicati ons:Dyslipidemia, goal LDL below 100 TAKE 1 TABLET BY MOUTH ON WEDNESDAY, WEDNESDAY AND WEDNESDAY 40 Tablet 3 024 Active predniSONE 5 MG Oral Tablet (Deltasone)Indica tions:Arthritis of knee TAKE ONE TABLET BY MOUTH IN THE MORNING 90 Tablet 3 024 Active Vitron-C 65-125 MG Oral Tablet (Iron-Vitamin C 65-125 mg per tab)Indications:I aster deficiency anemia, unspecified iron deficiency anemia type TAKE 1 TABLET BY MOUTH ON WEDNESDAY, WEDNESDAY AND WEDNESDAY 45 Tablet 3 024 Active Restasis 0.05 % Ophthalmic Emulsion Active Macular Health Formula Oral Capsule Take 3 Capsules by mouth every morning. Active Lisinopril 20 MG Oral Tablet (Prinivil)Indicat ions:Hypertensive kidney disease with stage 3b chronic kidney disease (HCC) TAKE ONE TABLET BY MOUTH IN THE MORNING 90 Tablet 3 024 Active Furosemide 20 MG Oral Tablet (Lasix)Indication s:Acute heart failure with preserved ejection fraction (HCC) TAKE ONE TABLET BY MOUTH IN THE MORNING 90 Tablet 3 024 Active amLODIPine Besylate 5 MG Oral Tablet (Norvasc)Indicati ons:HTN, goal below 140/90 TAKE ONE TABLET IN THE MORNING 90 Tablet 1 024 Active Montelukast Sodium 10 MG Oral Tablet (Singulair) TAKE ONE TABLET AT BEDTIME 90 Tablet 1 024 Active Metoprolol Tartrate 25 MG Oral Tablet (Lopressor)Indica tions:HTN, goal below 140/90 TAKE 1/2 TABLET TWICE DAILY 90 Tablet 1 024 Active DULoxetine HCl 30 MG Oral Capsule Delayed Release Particles (Cymbalta)Indicat ions:Spinal stenosis of lumbar region, unspecified whether neurogenic claudication present,Recurrent major depressive disorder, in partial remission (HCC),Arthritis of knee TAKE ONE CAPSULE IN THE MORNING 90 Capsule 1 024 Active Levothyroxine Sodium 150 MCG Oral Tablet (Levoxyl)Indicati ons:Acquired hypothyroidism TAKE ONE TABLET IN THE MORNING 90 Tablet 1 024 Active Trelegy Ellipta 200-62.5-25 MCG/ACT Aerosol Powder Breath Activated (Fluticasone-Umec lidinium-Vilanter ol)Indications:Mi ld persistent asthma without complication Inhale 1 Puff by mouth in the morning. 60 Blister Dosing Unit 1 024 Active Omeprazole 40 MG Oral Capsule Delayed Release (PriLOSEC)Indicat ions:Abdominal pain, generalized TAKE ONE CAPSULE IN THE MORNING 90 Capsule 1 024 Active Pregabalin 100 MG Oral Capsule (Lyrica)Indicatio ns:Small fiber neuropathy TAKE ONE CAPSULE BY MOUTH IN THE MORNING AND TWO CAPSULES in the evening 270 Capsule 024 Active Pregabalin 100 MG Oral Capsule (Lyrica)Indicatio ns:Small fiber neuropathy TAKE ONE CAPSULE BY MOUTH IN THE MORNING AND TWO CAPSULES in the evening 270 Capsule 024 2023 Discontinued Hospital, Clinic, or Other Facility Administered Medication Ordered Dose Route Frequency Start Date End Date Status albuterol sulfate (PROVENTIL) (2.5 MG/3ML) 0.083% inhalation solution 2.5 mgIndications:Moderate persistent asthma without complication 2.5 mg NEBULIZER [id number] 07/22/2018 Active documented as of this encounter (statuses as of 06/08/2024) Active Problems Problem Noted Date Diagnosed Date [...] as of this encounter (statuses as of 06/08/2024) Resolved Problems Problem Noted Date Diagnosed Date [...] as of this encounter (statuses as of 06/08/2024) Immunizations Name Administration Dates Next Due Hepatitis [...] encounter Miscellaneous Notes * Telephone Encounter - Xavier Zavala MD - 06/08/2024 7:33 AM EST Signed Prescriptions: Disp Refills Pregabalin 100 MG Oral Capsule (Lyrica) 270 Ca*0 Sig: TAKE ONE CAPSULE BY MOUTH IN THE MORNING AND TWO CAPSULES in the evening Authorizing Provider: XAVIER ZAVALA * Telephone Encounter - Elli Pacheco [facility] - 06/08/2024 4:30 AM ESTPending Prescriptions: Disp Refills Pregabalin 100 MG Oral Capsule [Pharmacy M*270 Ca*0 Sig: TAKE ONE CAPSULE BY MOUTH IN THE MORNING AND TWO CAPSULES in the evening * Telephone Encounter - Minnie Oliveros [facility] - 06/06/2024 7:57 AM EST Postponed until 06/08. I have reviewed the patients controlled substance dispensing history in the Prescription Drug Monitoring Program in compliance with the [facility] regulations before prescribing a controlled substance. PDMP checked on 06/06/2024. Pending Prescriptions: Disp Refills Pregabalin 100 MG Oral Capsule (Lyrica) [*270 Ca*0 Sig: TAKE ONE CAPSULE BY MOUTH IN THE MORNING AND TWO CAPSULES in the evening Last Visit: 05/17/2024 (in office), Visit date not found (telemedicine) Next Visit: 01/24/2025 Date medication was last filled: 03/13/24 Date medication is due for refill: 06/10/24 Pharmacy: [facility], [address] [place] Is this request for a controlled substance? Yes and Urine Drug Screen Not completed Toxicology results: No results found. However, due to the size of the patient record, not all encounters were searched.Please check Results Review for a complete set of results. Please approve if appropriate. Thanks, Minnie Oliveros Clinical Pharmacist [facility] ([facility]) [phone] 06/06/2024, 7:57 AM documented in this encounter Plan of Treatment Upcoming Encounters Date Type Department Care Team (Late st Contact Info) Description 06/12/2024 9:00 AM EST Office Visit Pulmonary Medicine, [facility] [address] [facility] [place] [address] Rubin Crockett, [address] [facility] [address] 06/13/2024 2:30 PM EST Office Visit Cardiology [address] [place] [address] Akshat Che, PATreyC [address] [facility] [place] [address] 06/29/2024 3:30 PM EST Cardiac Studies Cardiac Studies, [address] [place] [address] 01/09/2025 3:00 PM EDT Office Visit Pulmonary Medicine, [address] [place] [address] Deep Frank MD [facility] [place] [address] 01/24/2025 2:20 PM EDT Office Visit Family Medicine [address] [place] [phone] Xavier Zavala MD [address] [place] [address] [place] [address] 03/05/2025 2:20 PM EDT Office Visit Dermatology [address] [place] [address] Lois Batista PA-C [address] [place] [address] [place] [id number] 08/15/2025 2:20 PM EST Office Visit Family Medicine [address] [place] [phone] Xavier Zavala MD [address] [place] [address] [place] [id number] Health Maintenance Due Date Last Done Comments DTap/Tdap Vaccines (1 - Tdap) 1959 Adult Wellness Visit 2008 Zoster Vaccines (2 of 3) 07/14/2012 05/19/2012 Depression Monitoring 01/21/2021 01/22/2020 *BISPHONATE OR OTHER ACCEPTABLE MEDICATION NEEDED FOR OSTEOPOROSIS (REFER TO SMARTSET #1146) 07/03/2022 CKD HGB USE SMARTSET 09293 06/30/202306/30, 11/04/2021, 07/30/2021, Additional history exists CKD PHOS USE SMARTSET 34902 06/30/202306/18, 08/25/2021, 09/12/2020, Additional history exists COVID-19 [...] D LEVEL ONCE IN A LIFETIME-USE SMARTSET# 30235 Completed 06/30/2022, 08/25/2021, 01/16/2020, Additional history exists HPV (Gardasil) Vaccine Aged Out No lo nger eligible based on patient's age to complete this topic MENINGOCOCCAL (MENACTRA/MENVEO) Aged Out No longer eligible based on patient's age to complete this topic documented as of this encounter Medical Devices Not on filedocumented as of this encounter Visit Diagnoses Diagnosis 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
--- OUTSIDE RECORDS SUMMARY | 2024-07-22 02:16 | External Medical Summary | Summary of Care ---
Author Name Unknown Organization [facility] Address [address] [place] [place] [address] Phone [phone] Care Team Providers Care Ux Consultant Name Role Phone Xavier Zavala MD Primary Care Provide r Reason for Visit * Reason Onset Date Comments Follow Up 6 month follow u p. Echo upcoming on 06/29/24- missed last appointment due to being sick. SOB no worse then prior- new inhaler seems to be helping. Denies chest pain, dizziness, edema and palpitations. Medication Administration 06/13/2024 Flu an d/or Pneumo Inj Encounter Details Date Type Department Care Team (Late st Contact Info) Description 06/13/2024 2:30 PM EST Office Visit Cardiology [address] [place] [id number] Akshat Che PA-Gini [address] [facility] [place] [address] Need for prophylactic vaccination and inoculation against influenza*; HTN, goal below 140/90; Dyslipidemia, goal LDL below 70; Nonrheumatic aortic valve stenosis; Ascending aorta enlargement (HCC); Nonrheumatic aortic valve insufficiency; CHACON (dyspnea on exertion) Allergies Active Allergy Reactions Criticality Noted Date [...] as of this encounter (statuses as of 06/14/2024) Medications Melatonin 5 MG Tablet Daily at [...] Tablet by mouth in the morning. Active ERGOCALCIFEROL 400 UNIT PO TABS 1 tab daily 024 Discontin ued(Patie nt preferenc e/discont inuation) Hospital, Clinic, or Other Facility Administered Medication Ordered Dose Route Frequency Start Date End Date Status albuterol sulfate (PROVENTIL) (2.5 MG/3ML) 0.083% inhalation solution 2.5 mgIndications:Moderate persistent asthma without complication 2.5 mg NEBULIZER [id number] 07/22/2018 Active documented as of this encounter (statuses as of 06/14/2024) Active Problems Problem Noted Date Diagnosed Date [...] as of this encounter (statuses as of 06/14/2024) Resolved Problems Problem Noted Date Diagnosed Date [...] as of this encounter (statuses as of 06/14/2024) Immunizations Name Administration Dates Next Due Hepatitis [...] on file documented as of this encounter Last Filed Vital Signs Vital Sign Reading Time Taken Comments Blood Pressure 130/66 06/13/2024 2:28 PM EST Pulse 68 06/13/2024 2:28 PM EST Temperature - - Respiratory Rate 16 06/13/2024 2:28 PM EST Oxygen Saturation - - Inhaled Oxygen Concentration - - Weight 126.4 kg (278 lb 9.6 oz) 06/13/2024 2:28 PM EST Height - - Body Mass Index 50.96 05/30/2024 2:49 PM EST documented in this encounter Patient Instructions * Patient Instructions* Nikolai Plata LPN - 06/13/2024 2:23 PM EST ~~PATIENT INSTRUCTIONS FOR FLU SHOT~~ Possible side effects of influenza vaccine, (flu shot), are usually mild and include: 1. Soreness or redness at injection site 2. Low grade fever 3. Body aches You may use Tylenol/Acetaminophen as needed for these symptoms. LET YOUR DOCTOR KNOW IMMEDIATELY IF YOU HAVE DIFFICULTY BREATHING OR SWALLOWING, EXPERIENCE ITCHINGOF FEET OR HANDS, HAVE SWELLING OF EYES, FACE OR INSIDE OF NOSE. documented in this encounter Progress Notes * Akshat Che PA-C - 06/13/2024 2:41 PM EST History of Present Illness: Kandi Spivey is a 84 year old female here today for routine cardiologyfollow-up evaluation. Accompanied by daughter. Biggest issue is macular degeneration, following with Dr. Barajas in [place] Breathing seems to be better after switching Advair to Trelegy. Weight is down 6 lb from last evaluation in this office. Patient rescheduled resting echocardiography for June 29, 2024 No chest pain. No tachypalpitations. No fluid retention. No dizziness or syncope. No melena hematochezia. History includes: Longstanding hypertension with hypertensive heart disease. Right bundle branch block. Aortic valve disease. Diffuse arthritis with HLA-B27 overlap, ankylosing spondylitis. Chronic renal insufficiency. Chronic obstructive lung disease. Obesity with hypoventilation, chronic hypoxia. Past deep venous thrombosis. GERD. Esophagitis. Large hiatal hernia. Dysphagia. Spinal stenosis Hypothyroidism Depression Hospitalized at [facility] in March 2022, presenting with disorientation, confusion, and vomiting x 2after EMS was summoned. Blood pressure on presentation was 208/115 (did not have her AM medicationsthat day). CT revealed a hiatal hernia and abdominal hernia with no bowel obstructions. Symptoms imp roved following a GI cocktail and initiation of Protonix. Acute renal dysfunction noted following administration of IV contrast. Pulmonary vascular congestion noted on chest x-ray, receiving IV furosemide on March 22, March 25, and March 26. Hospitalized at [facility] in March 2023 with acute hypoxic respiratory failure secondary community acquired pneumonia. Patient Active Problem List Diagnosis Arthritis of knee Acquired hypothyroidism Meralgia paresthetica Diverticulosis of colon Current moderate episode of major depressive disorder (HCC) Senile osteoporosis Vitamin D deficiency History of DVT (deep vein thrombosis) HTN, goal below 140/90 Small fiber neuropathy Chronic kidney disease with symptom management only, stage 3 (moderate) ([facility]) Incisional hernia Dyslipidemia, goal LDL below 100 Primary osteoarthritis of first carpometacarpal joint of left hand Pseudogout Interstitial granulomatous dermatitis Spinal stenosis of lumbar region Morbid obesity with body mass index of 50.0-59.9 in adult (HCC) Nocturnal hypoxia Mild persistent asthma Need for prophylactic vaccination and inoculation against influenza At risk for aspiration Moderate episode of recurrent major depressive disorder (HCC) Chronic gout due to renal impairment of multiple sites without tophus Ventral hernia without obstruction or gangrene Hypertensive heart failure (HCC) Ascending aorta enlargement (HCC) Hyperparathyroidism, secondary renal (HCC) Chronic hypoxemic respiratory failure (HCC) Hx of nonmelanoma skin cancer Hiatal hernia Past Medical History: Diagnosis Date Acquired hypothyroidism Arthritis of knee Ascending aorta enlargement (HCC) 10/14/2022 Chronic hypoxemic respiratory failure (HCC) 10/20/2023 Diverticulosis of colon 04/15/2011 DVT (deep venous thrombosis) ([facility]) 2011 LLE--following knee replacement Dyslipidemia, goal LDL below 100 01/03/2016 Elevated plasma metanephrines 02/12/2014 Esophagitis, unspecified Hiatal hernia Large Hypertensive heart failure (HCC) Hypertensive kidney disease with chronic kidney disease stage III ([facility]) 04/03/2019 Mild persistent asthma 05/31/2019 Moderate episode of recurrent major depressive disorder ([facility]) 01/22/2020 Morbid obesity with body mass index of 50.0-59.9 in adult ([facility]) 06/30/2018 Other specified acquired hypothyroidism Primary osteoarthritis of first carpometacarpal joint of left hand 01/03/2016 Pseudogout 01/03/2016 Senile osteoporosis 06/14/2012 Small fiber neuropathy 05/30/2014 Spinal stenosis of lumbar region 11/24/2017 Thrush 08/04/2018 machelle glabrata Past Surgical History: Procedure Laterality Date ARTHROPLASTY KNEE TOTAL Left 10/19/2011 Dr. Desai CARPAL TUNNEL SURGERY Right 02/2017 Dr. Curran, carpal tunnel CARPAL TUNNEL SURGERY Left 02/2018 Dr. Curran--carpal tunnel and cyst removed from left hand DENTUR REPR BROKEN COMPL BAS EGD, FLEXIBLE, DIAGNOSTIC 11/22/2018 hiatal hernia / [facility] EXPLORATION OF ABDOMEN x 3 LIGATE/CUT OVIDUCT(S) 1971 MAMMOGRAM SCREENING BILATERAL 03/13/2014 almost entirely fat, category 1 normal OTHER (INFORMATION) 1973 knee surgery OTHER (INFORMATION) 10/19/2011 L knee replacement REMOVE GALLBLADDER 1970 REMOVE TONSILS & ADENOIDS, UNDER 12 TENDON SHEATH INCISION, FINGER Right 10/19/2017 TOTAL ABD HYSTERECTOMY W/WO REMOVAL OF TUBE(S) 1985 TOTAL HYSTERECTOMY Family History: Notable for pulmonary issues and congestive heart failure in mother. Social History: The patient is a nonsmoker since 1974. No significant alcohol. passed in April 2021. Complete Review of Systems is as stated above, negative, or noncontributory. Review of patient's allergies indicates: Allergen Reactions Actonel [Bisphosphonates] Hives, Other (Please comment) and Rash Dysphagia Aminoquinolines Hives Iodinated Contrast Media Dilaudid [Hydromorphone Hcl] Unknown Gabapentin Hives Imuran [Azathioprine Sodium] Hives Methotrexate Hives Minocycline Hcl Hives Norvasc [Calcium Channel Blockers] Unknown Nsaids Hives Luflunomide also causes hives Parathyroid Hormone (Recomb) Edema Other and Other (Please comment) General malaise Lower extremity edema Current Outpatient Medications Medication Sig Dispense Refill Melatonin 5 MG Tablet Daily at bedtime Lactobacillus (PROBIOTIC ACIDOPHILUS) TABS Take 1 Tab by mouth daily. home oxygen/equipment IN GAS Inhale 3 L by mouth at bedtime. Tylenol PM Extra Strength 500-25 MG Oral Tablet (diphenhydrAMINE-APAP (sleep)) Take 2 Tablets by mouth at bedtime. Albuterol Sulfate HFA 108 (90 Base) MCG/ACT Inhalation Aerosol Solution INHALE TWO PUFFS BY MOUTH EVERY 4 HOURS NEEDED FOR SHORTNESS OF BREATH OR FOR WHEEZING (BULK) 18 g 5 Docusate Sodium 100 MG Oral Capsule (Colace) Take 1 Capsule by mouth in the morning and 1 Capsule before bedtime. (Patient taking differently: Take 1 Capsule by mouth as needed.) 180 Capsule 1 Senna 8.6 MG Oral Capsule Take 8.6 mg by mouth in the morning and 8.6 mg before bedtime. 180 Capsule 1 Allopurinol 100 MG Oral Tablet (Zyloprim) Take 2 Tablets by mouth in the morning. 180 Tablet 4 Atorvastatin Calcium 10 MG Oral Tablet (Lipitor) TAKE 1 TABLET BY MOUTH ON WEDNESDAY, WEDNESDAY AND WEDNESDAY 40 Tablet 3 predniSONE 5 MG Oral Tablet (Deltasone) TAKE ONE TABLET BY MOUTH IN THE MORNING 90 Tablet 3 Vitron-C 65-125 MG Oral Tablet (Iron-Vitamin C 65-125 mg per tab) TAKE 1 TABLET BY MOUTH ON WEDNESDAY,WEDNESDAY AND WEDNESDAY 45 Tablet 3 Restasis 0.05 % Ophthalmic Emulsion Macular Health Formula Oral Capsule Take 3 Capsules by mouth every morning. Lisinopril 20 MG Oral Tablet (Prinivil) TAKE ONE TABLET BY MOUTH IN THE MORNING 90 Tablet 3 Furosemide 20 MG Oral Tablet (Lasix) TAKE ONE TABLET BY MOUTH IN THE MORNING 90 Tablet 3 amLODIPine Besylate 5 MG Oral Tablet (Norvasc) TAKE ONE TABLET IN THE MORNING 90 Tablet 1 Montelukast Sodium 10 MG Oral Tablet (Singulair) TAKE ONE TABLET AT BEDTIME 90 Tablet 1 Metoprolol Tartrate 25 MG Oral Tablet (Lopressor) TAKE 1/2 TABLET TWICE DAILY 90 Tablet 1 DULoxetine HCl 30 MG Oral Capsule Delayed Release Particles (Cymbalta) TAKE ONE CAPSULE IN THE MORNING 90 Capsule 1 Levothyroxine Sodium 150 MCG Oral Tablet (Levoxyl) TAKE ONE TABLET IN THE MORNING 90 Tablet 1 Trelegy Ellipta 200-62.5-25 MCG/ACT Aerosol Powder Breath Activated (Rovqiionqzi-Gkyparteppnm-Aydtxwgtge) Inhale 1 Puff by mouth in the morning. 60 Blister Dosing Unit 1 Omeprazole 40 MG Oral Capsule Delayed Release (PriLOSEC) TAKE ONE CAPSULE IN THE MORNING 90 Capsule1 Pregabalin 100 MG Oral Capsule (Lyrica) TAKE ONE CAPSULE BY MOUTH IN THE MORNING AND TWO CAPSULES in the evening 270 Capsule 0 Vitamin C 500 MG Oral Tablet (Ascorbic Acid) Take 1 Tablet by mouth in the morning. Current Facility-Administered Medications Medication Dose Route Frequency Provider Last Rate Last Admin albuterol sulfate (PROVENTIL) (2.5 MG/3ML) 0.083% inhalation solution 2.5 mg 2.5 mg Nebulizer Resp Q4H Rhed, [place], [employer]ERIAL CONTR[employer]ER 2.5 mg at 05/30/24 1444 PHYSICAL EXAMINATION: BP 130/66 | Pulse 68 | Resp 16 | Wt 126.4 kg (278 lb 9.6 oz) | BMI 50.96 kg/m | BSA 2.35 m Examined in a chair General: A&Ox3. NAD. Elevated BMI. HENT: Normocephalic. Atraumatic. Eyes: PER. Conjunctiva pink, sclera clear. Neck: Carotid bruits versus transmitted systolic murmur. No overt JVD. Heart: RRR. Grade II/ systolic murmur. Grade II/ diastolic murmur at the LLSB. Lungs: Clear to auscultation. Abdomen: +BS. Extremities: No clubbing, cyanosis, or distal lower extremity edema. Limited neurological examination is without focal deficits. Pulses: radial=2/4, posterior tibial=2/4. Data: March 07, 2015 DSE Interpretation Summary (as per Dr. Alvarez): The dobutamine stress echocardiographic examination is normal without resting left ventricular wall motion abnormalities or inducible ischemia. The left ventricular cavity size is normal. Qualitative LV ejection Fraction = 55-60%. The proximal ascending thoracic aorta is borderline enlarged. The aortic valve anatomy is normal. March 11, 2021 TTE Interpretation Summary (as per Dr. Gross): Normal LV chamber size with moderate concentric LVH. Normal LV systolic function without regional wall motion abnormality. Calculated LV ejection Fraction = 56% (bi- plane method of discs). Grade 1 diastolic dysfunction. Moderate aortic valve sclerosis without stenosis. Mild mitral annular calcifications. Severe left atrial enlargement. The aortic root is normal sized. The proximal ascending thoracic aorta is mildly enlarged. April 04, [address]: 4 cm ascending aortic dilatation. Large hiatal hernia. April 2021 Zio Monitor: Patient had a min HR of 54 bpm, max HR of 148 bpm, and avg HR of 74 bpm. Predominant underlying rhythm was Sinus Rhythm. First Degree AV Block was present. Bundle Branch Block/IVCD was present. 14 Supraventricular Tachycardia runs occurred, the run with the fastest interval lasting 59 beats with a max rate of 148 bpm, the longest lasting 59 beats with an avg rate of 141 bpm. Isolated SVEs were rare (<1.0%), SVE Couplets were rare (<1.0%), and SVE Triplets were rare (<1.0%). Isolated VEs were rare (<1.0%, 4248), VE Couplets were rare (<1.0%, 120), and VE Triplets were rare (<1.0%, 11). Ventricular Bigeminy and Trigeminy were present. No sustained arrhythmias. Symptoms correlated with sinus rhythm and sinus rhythm with supraventricular ectopy. Shor t salvos of PSVT. CTA of the chest at [facility] on March 21, 2022 revealed mild aneurysmal dilatation of the ascending aorta measuring 4 cm in diameter March 24, 2022 TTE Interpretation Summary ([facility], Dr. Alvarez): Moderate concentric LVH. Ejection fraction 65 to 70%. Normal RV systolic function. Normal left atrial size. Normal right atrial size. Moderate aortic valve sclerosis. Mild aortic valve regurgitation. Mild aortic valve stenosis. Grade 1diastolic dysfunction. April 19, 2023 TTE Interpretation Summary (as per Dr. Dyer): The left ventricular cavity size is normal. The LV wall thickness is moderately increased (concentric). The left ventricular wall motionis normal. The left ventricular diastolic function is mildly abnormal (grade I). The aortic valve is moderately calcified. Mild aortic valve stenosis is present. Moderate aortic valve regurgitation is present. There is moderate mitral annular calcification. The aortic root and proximal ascending aorta are borderline enlarged. 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 When compared to prior available tracings, there is no significant change. ASSESSMENT AND RECOMMENDATIONS/PLAN: Longstanding hypertension with hypertensive heart disease. Blood pressure is well controlled. Continue the current antihypertensive regimen. Mixed aortic valve disease. Compensated. Repeat resting echocardiography in June 2024. Mildly enlarged ascending thoracic aorta. Repeat resting echocardiography in June 2024 Right carotid bruit. Bilateral carotid duplex in April 2023 revealed only mild bilateral internalcarotid artery disease. Right bundle branch block. No higher degree heart block noted on prior Zio. Asymptomatic. Follow. Palpitations. Quiescent. Zio monitor in April 2021 revealed symptoms in association with sinus rhythm and sinus rhythm with supraventricular ectopy. The short salvos of SVT were asymptomatic. Average heart rate 74 bpm. Continue metoprolol as prescribed. Dyslipidemia. LDL goal less than 70 mg/dL noting the calcified plaque in the coronary arteries and aorta. LDL cholesterol 77 mg/dL on 10/20/2023. Patient unable to tolerate rosuvastatin. Continue atorvastatin 3 days per week, maximally tolerated dose. Cardiology follow-up with the above, routinely in 6 months, or as needed. ER with emergencies. Akshat Che PA-C Department of Cardiology I spent a total of 20-29 minutes (exact time 28 mins) on the date of service in preparation, delivery, and documentation of the care provided to Kandi Spivey excluding any time spent in the performance of separately billed services. This visit involved medical care services related to at least oneserious condition or complex condition requiring ongoing care. This chart was completed in part util [employer] Speech Voice Recognition Software. Grammatical errors, random word insertions, prounoun errors, and incomplete sentences are an occasional consequence of this system due to software limitations, ambient noise, and hardware issues. Any formal questions or concerns about the content, text, or information contained within the body of this dictation should be directly addressed to the provider for clarification. * Nikolai Plata LPN - 06/13/2024 2:23 PM EST PRE - ADMINISTRATION DOCUMENTATION Are you experiencing any cold symptoms or fever? No Have you had Guillain-Points Syndrome (an illness that causes paralysis) within the last 6 weeks? No Have you had the flu shot in the past? YES Have you ever had a reaction to the flu shot? No Nikolai Plata LPN, 06/13/2024 2:23 PM Immunization Administration Documentation Time Out Procedure Performed: Yes Patient Identified (Ask Name/Date of ): Yes Does the patient have a fever greater than 101 degrees today? No Patient allergic to latex? No VFC Stock: No Immunization(s) verified: Yes, Immunization Name: Flu, VIS Sheet(s) given: Yes Verified Side and Site: Yes Verified Shot(s) with Parent(s)/Patient: Yes documented in this encounter Nursing Notes * Nikolai Plata LPN - 06/13/2024 2:26 PM EST Patient identified by full name and date of Chief Complaint Patient presents with Follow Up 6 month follow up. Echo upcoming on 06/29/24- missed last appointment due to being sick. SOB no worse then prior- new inhaler seems to be helping. Denies chest pain, dizziness, edema and palpitations. Medication Administration Flu and/or Pneumo Inj Examination Room: 4 Name: Kandi Spivey Date of : (1940). Reason for Visit: Follow up Interim Hospitalization(s): Denies Problems/Concerns: See chief complaint Chest Pain/SOB: See chief complaint [facility] Discussed: Not applicable [facility] is a way you can talk to your provider online through e-mail. Would you like to sign up? I can activate it for you? DECLINES Patient was instructed to not get up on the exam table until directed and assisted by their provider; patient is to remain seated in the chair/ wheelchair/ exam table for fall prevention and safety reasons. Patient is aware to have assistance to step down off exam table with personnel. Patient voiced full comprehension of instructions. documented in this encounter Plan of Treatment Upcoming Encounters Date Type Department Care Team (Late st Contact Info) Description 06/29/2024 3:30 PM EST Cardiac Studies Cardiac Studies, [address] [place] [id number] 07/31/2024 1:00 PM EST Office Visit Pulmonary Medicine, [address] [place] [address] Deep Frank MD [address] [place] [address] 12/28/2024 2:30 PM EDT Office Visit Cardiology [address] [place] [address] Akshat Che PA-C [address] [place] [address] 01/09/2025 3:00 PM EDT Office Visit Pulmonary Medicine, [address] [place] [address] Deep Frank MD [address] [place] [address] 01/24/2025 2:20 PM EDT Office Visit Family Medicine [address] [place] [phone] Xavier Zavala MD [address] [place] [address] [place] [address] 03/05/2025 2:20 PM EDT Office Visit Dermatology [address] [place] [address] Lois Batista PA-C [address] [place] [address] [place] [address] 08/15/2025 2:20 PM EST Office Visit Family Medicine [address] [place] [phone] Xavier Zavala MD [address] [place] [address] [place] [id number] Health Maintenance Due Date Last Done Comments DTap/Tdap Vaccines (1 - Tdap) 1961 Adult Wellness Visit 2008 Zoster Vaccines (2 of 3) 07/14/2012 05/19/2012 Depression Monitoring 01/21/2021 01/22/2020 *BISPHONATE OR OTHER ACCEPTABLE MEDICATION NEEDED FOR OSTEOPOROSIS (REFER TO SMARTSET #1146) 07/03/2022 CKD HGB USE SMARTSET 02594 06/30/202306/30, 11/04/2021, 07/30/2021, Additional history exists CKD PHOS USE SMARTSET 86693 06/30/202306/18, 08/25/2021, 09/12/2020, Additional history exists COVID-19 Vaccine ( season) 2024 GFR 04/20/2024 10/20/2023, 03/20, 01/07/2023, Additional history exists DXA Scan 08/03/2024 08/03/2022, 03/20, 02/04/2012 Albumin/Creatinine Ratio 10/19/2024 024, 06/30/2022, 08/25/2021, Additional history exists TSH 10/19/2024 10/20/2023, 12/18, 06/23/2021, Additional history exists Pneumococcal Vaccine: 65+ Years Completed 08/21/2014, 04/03/2011 Hepatitis B Vaccine Completed 12/09/2020, 08/01/2020, 06/07/2020 VITAMIN D LEVEL ONCE IN A LIFETIME-USE SMARTSET# [id number] Completed 06/30/2022, 08/25/2021, 01/16/2020, Additional history exists [...] as of this encounter Visit Diagnoses Diagnosis Need for prophylactic vaccination and inoculation against influenza- Primary HTN, goal below 140/90 Unspecified essential hypertension Dyslipidemia, goal LDL below 70 Other and unspecified hyperlipidemia Nonrheumatic aortic valve stenosis Aortic valve disorders Ascending aorta enlargement (HCC) Other specified disorders of arteries and arterioles Nonrheumatic aortic valve insufficiency Aortic valve disorders CHACON (dyspnea on exertion) Other dyspnea and respiratory abnormality documented in this encounter Care Teams Ux Consultant Relationship Specialty Start Date End Date Xavier Zavala MD [address] [place] [address] [place] [phone] PCP - General Family Medicine 04/28/21 documented as of this encounter"
--- OUTSIDE RECORDS SUMMARY | 2024-07-22 02:16 | External Medical Summary | Summary of Care ---
Author Name Unknown Organization [facility] Address [address] [place] [address] Phone [phone] Care Team Providers Care Firebrick And Refractory Tile Repairer Name Role Phone Xavier Zavala MD Primary Care Provide r Reason for Referral * Evaluate & Treat - Unlimited Visits (Within 30 days (routine)) - Authorized Specialty Diagnoses / Procedures Referred By Contsandra t Referred To Contact Pulmonary Diseases / Pulmonary Diagnoses Restrictive lung disease Chronic hypoxemic respiratory failure (HCC) Xavier Zavala MD [address] [place] [address] [place] [address] Phone: tel: fax: Referral ID Status Reason Start Date Expiration Date Visits Requested Visits Authorized [id number] Authorized Specialty Services Required 4 [phone] Question Answer Referral Priority Within 30 days (routine) Where should this appointment be scheduled? [facility] Primary Reason for Referral? Other Reason for Visit * Reason Onset Date Comments Test Results 06/05/2024 Encounter Details Date Type Department Care Team (Late st Contact Info) Description 06/05/2024 Telephone Family Medicine [address] [place] [phone] Xavier Zavala MD [address] [place] [address] [place] [id number] Test Results Allergies Active Allergy Reactions Criticality Noted Date [...] as of this encounter (statuses as of 06/09/2024) Medications ERGOCALCIFEROL 400 UNIT PO TABS 1 [...] 1 Capsule before bedtime. 180 Capsule 1 023 Active Additional Information Patient taking differently:100 mg OralPRN, Reported on 11/30/2023 Senna 8.6 MG Oral CapsuleIndication s:Constipation, unspecified constipation type,Abdominal pain, generalized Take 8.6 mg by mouth in the morning and 8.6 mg before bedtime. 180 Capsule 1 023 Active Allopurinol 100 MG Oral Tablet [...] CAPSULE IN THE MORNING 90 Capsule 1 Active Levothyroxine Sodium 150 MCG Oral Tablet [...] CAPSULE IN THE MORNING 90 Capsule 1 Active Pregabalin 100 MG Oral Capsule (Lyrica)Indicatio ns:Small fiber neuropathy TAKE ONE CAPSULE BY MOUTH IN THE MORNING AND TWO CAPSULES in the evening 270 Capsule 024 2023 Discontinued Hospital, Clinic, or Other Facility Administered Medication Ordered Dose Route Frequency Start Date End Date Status albuterol sulfate (PROVENTIL) (2.5 MG/3ML) 0.083% inhalation solution 2.5 mgIndications:Moderate persistent asthma without complication 2.5 mg NEBULIZER [id number] 07/22/2018 Active documented as of this encounter (statuses as of 06/09/2024) Active Problems Problem Noted Date Diagnosed Date [...] as of this encounter (statuses as of 06/09/2024) Resolved Problems Problem Noted Date Diagnosed Date [...] as of this encounter (statuses as of 06/09/2024) Immunizations Name Administration Dates Next Due Hepatitis [...] encounter Miscellaneous Notes * Telephone Encounter - Estuardo Hayward CMA - 06/09/2024 9:51 AM EST Pt scheduled with Pulmonary on 07.31.2024 * Telephone Encounter - Xavier Zavala MD - 06/05/2024 10:57 AM EST Please call the pt Your lung function test showed you have restrictive lung didsease (meaning that your lung does not expand completely) therefore I recommend a pulmonology consultation. documented in this encounter Plan of Treatment Upcoming Encounters Date Type Department Care Team (Late st Contact Info) Description 06/13/2024 2:30 PM EST Office Visit Cardiology [address] [place] [address] Akshat Che PA-C 132 [facility] [place] [address] 06/29/2024 3:30 PM EST Cardiac Studies [facility] [place] [address] 07/31/2024 1:00 PM EST Office Visit Pulmonary Medicine, [facility] 132 [facility] [place] [address] Deep Frank MD [address] [place] [address] 01/09/2025 3:00 PM EDT Office Visit Pulmonary Medicine, [facility] [address] [place] [address] Deep Frank MD [address] [place] [address] 01/24/2025 2:20 PM EDT Office Visit Family Medicine [address] [place] [phone] Xavier Zavala MD [address] [place] [address] [place] [address] 03/05/2025 2:20 PM EDT Office Visit Dermatology [address] [place] [address] Lois Batista PA-C [address] [place] [address] [place] [address] 08/15/2025 2:20 PM EST Office Visit Family [address] [place] [phone] Xavier Zavala MD [address] [place] [address] [place] [address] Scheduled Referrals Name Type Priority Associated Diagnoses Orde r Schedule PULMONARY REFERRAL OP Referral Within 30 days (routine) Restrictive lung disease Chronic hypoxemic respiratory failure (HCC) Ordered: 06/05/2024 Health Maintenance Due Date Last Done Comments DTap/Tdap Vaccines (1 - Tdap) 1959 Adult Wellness Visit 2008 Zoster Vaccines (2 of 3) 07/14/2012 05/19/2012 Depression Monitoring 01/21/2021 01/22/2020 *BISPHONATE OR OTHER ACCEPTABLE MEDICATION NEEDED FOR OSTEOPOROSIS (REFER TO SMARTSET #1146) 07/03/2022 CKD HGB USE SMARTSET 33815 06/30/202306/30, 11/04/2021, 07/30/2021, Additional history exists CKD PHOS USE SMARTSET 06338 06/30/202306/18, 08/25/2021, 09/12/2020, Additional history exists COVID-19 [...] D LEVEL ONCE IN A LIFETIME-USE SMARTSET# 73494 Completed 06/30/2022, 08/25/2021, 01/16/2020, Additional history exists HPV (Gardasil) Vaccine Aged Out No lo nger eligible based on patient's age to complete this topic MENINGOCOCCAL (MENACTRA/MENVEO) Aged Out No longer eligible based on patient's age to complete this topic documented as of this encounter Medical Devices Not on filedocumented as of this encounter Visit Diagnoses Diagnosis Restrictive lung disease- Primary Other diseases of lung, not elsewhere classified Chronic hypoxemic respiratory failure (HCC) Chronic respiratory failure documented in this encounter Care Teams Firebrick And Refractory Tile Repairer Relationship Specialty Start Date End Date Xavier Zavala MD [address] [place] [address] [place] [address] PCP - General Family Medicine 04/28/21 documented as of this encounter
--- OUTSIDE RECORDS SUMMARY | 2024-07-22 02:16 | External Medical Summary | Summary of Care ---
Author Name Unknown Organization [facility] Address [address] [place] [address] Phone [phone] Care Team Providers Care Portfolio Mgr Name Role Phone Xavier Zavala MD Primary Care Provide r Reason for Referral * Evaluate & Treat - Unlimited Visits (Within 30 days (routine)) - Authorized Specialty Diagnoses / Procedures Referred By Contsandra t Referred To Contact Pulmonary Diseases / Pulmonary Diagnoses Restrictive lung disease Chronic hypoxemic respiratory failure (HCC) Xavier Zavala MD [address] [place] [address] [place] [address] Phone: tel: fax: Referral ID Status Reason Start Date Expiration Date Visits Requested Visits Authorized [id number] Authorized Specialty Services Required 4 [phone] Question Answer Referral Priority Within 30 days (routine) Where should this appointment be scheduled? [facility] Primary Reason for Referral? Other Reason for Visit * Reason Onset Date Comments Test Results 06/05/2024 Encounter Details Date Type Department Care Team (Late st Contact Info) Description 06/05/2024 Telephone Family Medicine [address] [place] [phone] Xavier Zavala MD [address] [place] [address] [place] [id number] Test Results Allergies Active Allergy Reactions Criticality [...] as of this encounter (statuses as of 06/05/2024) Medications ERGOCALCIFEROL 400 UNIT PO TABS 1 [...] persistent asthma without complication 2.5 mg NEBULIZER [id number] 07/22/2018 Active documented as of this encounter (statuses as of 06/05/2024) Active Problems Problem Noted Date Diagnosed Date [...] as of this encounter (statuses as of 06/05/2024) Resolved Problems Problem Noted Date Diagnosed Date [...] as of this encounter (statuses as of 06/05/2024) Immunizations Name Administration Dates Next Due Hepatitis [...] 9:00 AM EST Office Visit Pulmonary Medicine, [facility] 132 [facility] [place] [address] Rubin Crockett[facility] [address] [facility] [address] 06/13/2024 2:30 PM EST Office Visit Cardiology [address] [place] [address] Akshat Che, PATreyC 132 [facility] [place] [address] 06/29/2024 3:30 PM EST Cardiac Studies Cardiac Studies, [facility] [address] [facility] [place] [address] 01/09/2025 3:00 PM EDT Office Visit Pulmonary Medicine, [facility] [address] [facility] [place] [address] Deep Frank MD [address] [place] [address] 01/24/2025 2:20 PM EDT Office Visit Family Medicine [address] [place] [phone] Xavier Zavala MD [address] [place] [address] [place] [address] 03/05/2025 2:20 PM EDT Office Visit Dermatology [address] [place] [address] Lois Batista PA-C [address] [place] [address] [place] [address] 08/15/2025 2:20 PM EST Office Visit Family Medicine [address] [place] [phone] Xavier Zavala MD [address] [place] [address] [place] [address] Scheduled Referrals Name Type Priority Associated Diagnoses [...] SMARTSET #1146) 07/03/2022 CKD HGB USE SMARTSET 28601 06/30/202306/30, 11/04/2021, 07/30/2021, Additional history exists CKD PHOS USE SMARTSET 44183 06/30/202306/18, 08/25/2021, 09/12/2020, Additional history exists COVID-19 Vaccine ( - 2023- season) 2024 Influenza Vaccine (FLU shot) (#1) [...] D LEVEL ONCE IN A LIFETIME-USE SMARTSET# 44958 Completed 06/30/2022, 08/25/2021, 01/16/2020, Additional history exists [...] failure documented in this encounter Care Teams Portfolio Mgr Relationship Specialty Start Date End Date Xavier Zavala MD [address] [place] [address] [place] [address] PCP - General Family Medicine 04/28/21 documented as of this encounter
--- OUTSIDE RECORDS SUMMARY | 2024-07-22 02:17 | External Medical Summary | Summary of Care ---
Author Name Unknown Organization [facility] Address [address] [place] [facility] [place] [address] Phone [phone] Care Team Providers Care Mobile Tester Name Role Phone Xavier Zavala MD Primary Care Provide r Reason for Visit * Reason Comments Pulmonary Function Test PFT with broncho dilator Encounter Details Date Type Department Care Team (Latest Contact Info) Description 05/30/2024 2:30 PM EST PulmDiagnostic Pulmonary Function Lab, [facility] [address] [facility] [place] [address] [place], [address] [facility] [place] [address] Mild persistent asthma without complication* Allergies Active Allergy Reactions Criticality Noted Date [...] as of this encounter (statuses as of 05/30/2024) Medications ERGOCALCIFEROL 400 UNIT PO TABS 1 [...] MORNING 90 Tablet 3 12/17/19 24 Active Omeprazole 40 MG Oral Capsule Delayed Release (PriLOSEC)Indicati ons:Abdominal pain, generalized TAKE ONE CAPSULE BY MOUTH EVERY DAY 90 Capsule 1 12/17/19 24 Active Pregabalin 100 MG Oral [...] Blister Dosing Unit 1 05/17/20 24 Active Hospital, Clinic, or Other Facility Administered Medication Ordered Dose Route Frequency Start Date End Date Status albuterol sulfate (PROVENTIL) (2.5 MG/3ML) 0.083% inhalation solution 2.5 mgIndications:Moderate persistent asthma without complication 2.5 mg NEBULIZER [id number] 07/22/2018 Active documented as of this encounter (statuses as of 05/30/2024) Active Problems Problem Noted Date Diagnosed Date [...] as of this encounter (statuses as of 05/30/2024) Resolved Problems Problem Noted Date Diagnosed Date [...] as of this encounter (statuses as of 05/30/2024) Immunizations Name Administration Dates Next Due Hepatitis [...] 0 [birth year] Smokeless Tobacco: Never Tobacco Cessation:Counseling Given: Not Answered Alcohol Use Standard Drinks/Week Comments No 0 [...] Sign Reading Time Taken Comments Blood Pressure - - Pulse - - Temperature - - Respiratory Rate - - Oxygen Saturation - - Inhaled Oxygen Concentration - - Weight 126.6 kg (279 lb 1.3 oz) 05/30/2024 2:49 PM EST Height 157.5 cm (5' 2") 05/30/2024 2:49 PM EST Body Mass Index 51.04 05/30/2024 2:49 PM EST documented in this encounter Nursing Notes * Lawrence Vieira, CELESTINA - 05/30/2024 2:55 PM EST Kandi Spivey was identified by name, Date of : (1940), and . Vitals were obtained for testing. Body mass index is 51.04 kg/m. Pt has a .25 ppd for 12 years smoking history and quit 53.9 years ago. Pt wears 3 liters of oxygen at night. 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 Spirometry,DLCO, RAW, and TGV performed. A slow volume nebulizer treatment of 0.5ml of albuterol in 3 ml of NSS was given. The proper method of use, as well as anticipated side effects, of this svn are discussed and demonstrated to the patient. Patient demonstrates adequate delivery. Administrations This Visit albuterol sulfate (PROVENTIL) (2.5 MG/3ML) 0.083% inhalation solution 2.5 mg Admin Date 05/30/2024 Action Given Dose 2.5 mg Route Nebulizer Documented By Lawrence Vieira RRT documented in this encounter Plan of Treatment Upcoming Encounters Date Type Department Care Team (Late st Contact Info) Description 06/01/2024 2:30 PM EST Cardiac Studies Cardiac Studies, [facility] [address] 06/12/2024 9:00 AM EST Office Visit Pulmonary Medicine, [facility] [address] Rubin [facility]ett [facility] [address] [facility] [address] 06/13/2024 2:30 PM EST Office Visit Cardiology [address] [place] [address] Akshat Che PA-C 132 [facility] [place] [address] 01/09/2025 3:00 PM EDT Office Visit Pulmonary Medicine, [facility] [address] [place] [address] Deep Frank MD [address] [place] [address] 01/24/2025 2:20 PM EDT Office Visit [address] [place] [phone] Xavier Zavala MD [address] [place] [address] [place] [address] 03/05/2025 2:20 PM EDT Office Visit Dermatology [address] [place] [address] Lois Batista PA-C [address] [place] [address] [place] [address] 08/15/2025 2:20 PM EST Office Visit [address] [place] [phone] Xavier Zavala MD [address] [place] [address] [place] [address] Pending Results Name Type Priority Associated Diagnoses Date /Time SPIROMETRY B/A BRONCHODILATOR Procedures Routine Mild persistent asthma without complication 05/30/2024 2:45 PM EST LUNG VOLUMES (PLETHYSMOGRAPHY) Procedures Routine Mild persistent asthma without complication 05/30/2024 2:45 PM EST DIFFUSION CAPACITY (DLCO) Procedures Routine Mild persistent asthma without complication 05/30/2024 2:45 PM EST Health Maintenance Due Date Last Done Comments DTap/Tdap Vaccines (1 - Tdap) 1959 Adult Wellness Visit 2008 Zoster Vaccines (2 of 3) 07/14/2012 05/19/2012 Depression Monitoring 01/21/2021 01/22/2020 *BISPHONATE OR OTHER ACCEPTABLE MEDICATION NEEDED FOR OSTEOPOROSIS (REFER TO SMARTSET #1146) 07/03/2022 CKD HGB USE SMARTSET 19183 06/30/202306/30, 11/04/2021, 07/30/2021, Additional history exists CKD PHOS USE SMARTSET 05634 06/30/202306/18, 08/25/2021, 09/12/2020, Additional history exists COVID-19 [...] D LEVEL ONCE IN A LIFETIME-USE SMARTSET# 27103 Completed 06/30/2022, 08/25/2021, 01/16/2020, Additional history exists HPV (Gardasil) Vaccine Aged Out No lo nger eligible based on patient's age to complete this topic MENINGOCOCCAL (MENACTRA/MENVEO) Aged Out No longer eligible based on patient's age to complete this topic documented as of this encounter Medical Devices Not on filedocumented as of this encounter Procedures Procedure Name Priority Date/Time Associated Diagnosis Comments DIFFUSION CAPACITY (DLCO) Routine 2023 2:45 PM EST Mild persistent asthma without complication LUNG VOLUMES (PLETHYSMOGRAPHY) Routine 05/30/2024 2:45 PM EST Mild persistent asthma without complication SPIROMETRY B/A BRONCHODILATOR Routine 05/30/2024 2:45 PM EST Mild persistent asthma without complication documented in this encounter Visit Diagnoses Diagnosis Mild persistent asthma without complication- Primary Unspecified asthma documented in this encounter Administered Medications Active Administered Medications - up to 3 most recent administrations Medication Order MAR Action Action Date Dose Rate Site albuterol sulfate (PROVENTIL) (2.5 MG/3ML) 0.083% inhalation solution 2.5 mg 2.5 mg, Nebulizer, [id number], First dose on Wed07/22/18 at 0000, Until DiscontinuedIndications:Moderate persistent asthma without complication Given 05/30/2024 2:44 PM EST 2.5 mg Given 09/13/2018 2:14 PM EST 2.5 mg documented in this encounter Care Teams Mobile Tester Relationship Specialty Start Date End Date Xavier Zavala MD [address] [place] [address] [place] [address] PCP - General Family Medicine 04/28/21 documented as of this encounter
--- OUTSIDE RECORDS SUMMARY | 2024-07-22 02:17 | External Medical Summary | Summary of Care ---
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 Name Role Phone Xavier Zavala MD Primary Care Provide r Reason for Referral * Evaluate & Treat - Unlimited Visits (Within 30 days (routine)) - Authorized Specialty Diagnoses / Procedures Referred By Contsandra t Referred To Contact Pulmonary Diseases / Pulmonary Diagnoses Mild persistent asthma without complication Xavier Zavala MD [address] [place] [address] [place] [id number] Referral ID Status Reason Start Date Expiration Date Visits Requested Visits Authorized [id number] Authorized Specialty Services Required [phone] Question Answer Referral Priority Within 30 days (routine) Where should this appointment be scheduled? [facility] Reason for Referral? Asthma/COPD Reason for Visit * Reason Comments Re-Check 6 mo Encounter Details Date Type Department Care Team (Late st Contact Info) Description 05/17/2024 2:20 PM EDT Office Visit Family Medicine [address] [place] [phone] Xavier Zavala MD [address] [place] [address] [place] [id number] Mild persistent asthma without complication*; Chronic hypoxemic respiratory failure (HCC); HTN, goal below 140/90; Hypertensive heart failure (HCC); Chronic kidney disease with symptom management only, stage 3 (moderate) (HCC) Allergies Active Allergy Reactions Criticality Noted Date [...] as of this encounter (statuses as of 05/17/2024) Medications Medication Sig Dispensed Refills Start Date End Date Status ERGOCALCIFEROL 400 UNIT PO TABS 1 tab daily Active Melatonin 5 MG Tablet Daily at bedtime [...] OR FOR WHEEZING (BULK) 18 g 5 3 Active Docusate Sodium 100 MG Oral Capsule (Colace)Indication s:Constipation, unspecified constipation type Take 1 Capsule by mouth in the morning and 1 Capsule before bedtime. 180 Capsule 1 3 Active Additional Information Patient taking differently:100 mg OralPRN, Reported on 11/30/2023 Senna 8.6 MG Oral CapsuleIndications :Constipation, unspecified constipation type,Abdominal pain, generalized Take 8.6 mg by mouth in the morning and 8.6 mg before bedtime. 180 Capsule 1 3 Active Allopurinol 100 MG Oral Tablet (Zyloprim)Indicati ons:Chronic gout due to renal impairment of multiple sites without tophus Take 2 Tablets by mouth in the morning. 180 Tablet 4 4 Active Atorvastatin Calcium 10 MG Oral Tablet (Lipitor)Indicatio ns:Dyslipidemia, goal LDL below 100 TAKE 1 TABLET BY MOUTH ON WEDNESDAY, WEDNESDAY AND WEDNESDAY 40 Tablet 3 4 Active predniSONE 5 MG Oral Tablet (Deltasone)Indicat ions:Arthritis of knee TAKE ONE TABLET BY MOUTH IN THE MORNING 90 Tablet 3 4 Active Vitron-C 65-125 MG Oral Tablet (Iron-Vitamin C 65-125 mg per tab)Indications:Ir on deficiency anemia, unspecified iron deficiency anemia type TAKE 1 TABLET BY MOUTH ON WEDNESDAY, WEDNESDAY AND WEDNESDAY 45 Tablet 3 4 Active Restasis 0.05 % Ophthalmic Emulsion 4 Active Macular Health Formula Oral Capsule Take 3 Capsules by mouth every morning. Active Lisinopril 20 MG Oral Tablet (Prinivil)Indicati ons:Hypertensive kidney disease with stage 3b chronic kidney disease (HCC) TAKE ONE TABLET BY MOUTH IN THE MORNING 90 Tablet 3 4 Active Furosemide 20 MG Oral Tablet (Lasix)Indications :Acute heart failure with preserved ejection fraction (HCC) TAKE ONE TABLET BY MOUTH IN THE MORNING 90 Tablet 3 4 Active Omeprazole 40 MG Oral Capsule Delayed Release (PriLOSEC)Indicati ons:Abdominal pain, generalized TAKE ONE CAPSULE BY MOUTH EVERY DAY 90 Capsule 1 4 Active Pregabalin 100 MG Oral Capsule (Lyrica)Indication s:Small fiber neuropathy TAKE ONE CAPSULE BY MOUTH IN THE MORNING AND TWO CAPSULES in the evening 270 Capsule 4 Active amLODIPine Besylate 5 MG Oral Tablet (Norvasc)Indicatio ns:HTN, goal below 140/90 TAKE ONE TABLET IN THE MORNING 90 Tablet 1 4 Active Montelukast Sodium 10 MG Oral Tablet (Singulair) TAKE ONE TABLET AT BEDTIME 90 Tablet 1 4 Active Metoprolol Tartrate 25 MG Oral Tablet (Lopressor)Indicat ions:HTN, goal below 140/90 TAKE 1/2 TABLET TWICE DAILY 90 Tablet 1 4 Active DULoxetine HCl 30 MG Oral Capsule Delayed Release Particles (Cymbalta)Indicati ons:Spinal stenosis of lumbar region, unspecified whether neurogenic claudication present,Recurrent major depressive disorder, in partial remission (HCC),Arthritis of knee TAKE ONE CAPSULE IN THE MORNING 90 Capsule 1 4 Active Levothyroxine Sodium 150 MCG Oral Tablet (Levoxyl)Indicatio ns:Acquired hypothyroidism TAKE ONE TABLET IN THE MORNING 90 Tablet 1 4 Active Trelegy Ellipta 200-62.5-25 MCG/ACT Aerosol Powder Breath Activated (Fluticasone-Umecl idinium-Vilanterol )Indications:Mild persistent asthma without complication Inhale 1 Puff by mouth in the morning. 60 Blister Dosing Unit 1 4 Active VITAMIN C 500 MG PO TABS 1 tab daily 024 Discontinued(Me dication List Clean Up) aspirin enteric coated 81 MG TBEC Take 1 Tablet by mouth in the morning. 024 Discontinued(Me dication List Clean Up) Advair HFA 230-21 MCG/ACT Inhalation Aerosol (fluticasone-Salme terol)Indications: Mild persistent asthma without complication Inhale 2 Puffs by mouth in the morning and 2 Puffs before bedtime. 36 g 2 3 024 Discontinued(Me dication List Clean Up) Zoster Vac Recomb Adjuvanted 50 MCG/0.5ML Intramuscular Suspension Reconstituted (Shingrix)Indicati ons:Need for shingles vaccine Inject 0.5 mL into a large muscle now and repeat dose in 60 to 180 days 1 Each 1 4 Discontinued Hospital, Clinic, or Other Facility Administered Medication Ordered Dose Route Frequency Start Date End Date Status albuterol sulfate (PROVENTIL) (2.5 MG/3ML) 0.083% inhalation solution 2.5 mgIndications:Moderate persistent asthma without complication 2.5 mg NEBULIZER [id number] 07/22/2018 Active documented as of this encounter (statuses as of 05/17/2024) Active Problems Problem Noted Date Diagnosed Date Hx of nonmelanoma skin cancer 03/01/2024 Overview: Lilibeth (R mid helix of ear 03/11) [...] History of DVT (deep vein thrombosis) 10/16/2013 Overview: Pos-op knee replacement 2011 Vitamin D deficiency 08/24/2013 Senile osteoporosis 06/14/2012 Current moderate episode of major depressive dis order 05/20/2011 Overview: ICD-10 update of inactive term Diverticulosis of colon 04/15/2011 Meralgia paresthetica 02/27/2011 ADVANCE DIRECTIVE INFORMATION 11/03/2005 Overview: Yes, Patient instructed to provide copy of advance directive for provider to review and to be scanned into Electronic Medical Record Arthritis of knee Acquired hypothyroidism documented as of this encounter (statuses as of 05/17/2024) Resolved Problems Problem Noted Date Diagnosed Date [...] ge III (GFR 30-59 ml/min) 12/07/2011 12/21/2013 Overview: Per CKD protocol #1 COPD, mild 04/15/2011 12/28/2018 Overview: Per COPD GOLD Classification Hypertensive heart failure 05/16/2009 1 Overview: Per Heart Failure Taxonomy Protocol. Esophagitis 06/30/2018 Hypertensive heart failure 1 Overview: Per Heart Failure Taxonomy Protocol. Ankylosing spondylitis 11/24 documented as of this encounter (statuses as of 05/17/2024) Immunizations Name Administration Dates Next Due Hepatitis [...] Used Date Smoking Tobacco: Former Cigarettes 0.3 16 0 07/19/1958 - 07/19/1974 Smokeless Tobacco: Never Alcohol Use Standard Drinks/Week Comments No 0 (1 standard drink = 0.6 oz pur e alcohol) PHQ-2 Answer Date Recorded PHQ-2 Score 0 01/22/2020 Hunger Vital Sign Answer Date Recorded Worried About Running Out of Food in the Last Ye ar Never true 04/11/2019 Ran Out of Food in the Last Year Never true 04/11/2019 Sex and Gender Information Value Date Recorded Sex Assigned at Not on file Gender Identity Not on file Sexual Orientation Not on file Job Start Date Occupation Industry Not on file Not on file Not on file documented as of this encounter Last Filed Vital Signs Vital Sign Reading Time Taken Comments Blood Pressure 114/62 05/17/2024 2:11 PM EDT Pulse 63 05/17/2024 2:11 PM EDT Temperature 36.3 C (97.4 F) 05/17/2024 2:11 PM ED T Respiratory Rate - - Oxygen Saturation 90% 05/17/2024 2:11 PM EDT Inhaled Oxygen Concentration - - Weight 126 kg (277 lb 12.8 oz) 05/17/2024 2:11 P M EDT Height - - Body Mass Index 49.21 04/08/2023 1:45 PM EDT documented in this encounter Progress Notes * Xavier Zavala MD - 05/17/2024 2:26 PM EDT Subjective: HPI: Kandi Spivey is a 84 year old female with hx of hypothyroidism, HLD, HTN, DJD, Asthma, Depression,CKD III, Ankylosing spondylitis on chronic steroid, ERIK on 3L noctural, hx of provoked DVT, RBBB, hx of bowel obstruction, HFpEF, mild aortic stenosis, gout seen for Asthma and chronic hypoxic respiratory failure: - on 3L [place] at night but sometimes uses during daytime - not sure about COPD dx ---quit smoking 50 years ago --- smoked for 10 years - per pt advair did not help Mild and HFpEF: - had echo last year - follows up with cardiology - denied any worsening leg swelling or orthopnea Ankylosing spondylitis on chronic steroid - on prednisone 5mg daily HTN with CKD III: - on amlodipine 5mg daily, lisinopril 20mg daily, lasix 20mg daily, metoprolol 12.5mg BID Patient Active Problem List Diagnosis ADVANCE DIRECTIVE INFORMATION Arthritis of knee Acquired hypothyroidism Meralgia paresthetica Diverticulosis of colon Current moderate episode of major depressive disorder (HCC) Senile osteoporosis Vitamin D deficiency History of DVT (deep vein thrombosis) HTN, goal below 140/90 Small fiber neuropathy Chronic kidney disease with symptom management only, stage 3 (moderate) (HCC) Incisional hernia Dyslipidemia, goal LDL below 100 [...] failure (HCC) Hx of nonmelanoma skin cancer Current Outpatient Medications Medication Sig Dispense Refill ERGOCALCIFEROL 400 UNIT PO TABS 1 tab daily Melatonin 5 MG Tablet Daily at bedtime [...] by mouth as needed.) 180 Capsule 1 Allopurinol 100 MG Oral [...] MOUTH IN THE MORNING 90 Tablet 3 Omeprazole 40 MG Oral Capsule Delayed Release (PriLOSEC) TAKE ONE CAPSULE BY MOUTH EVERY DAY 90 Capsule 1 Pregabalin 100 MG Oral Capsule (Lyrica) TAKE ONE CAPSULE BY MOUTH IN THE MORNING AND TWO CAPSULES in the evening 270 Capsule 0 amLODIPine Besylate 5 MG Oral Tablet (Norvasc) [...] Ellipta 200-62.5-25 MCG/ACT Aerosol Powder Breath Activated (Fiwcfuvipyx-Ennrqqyyvjad-Cskbpnlniv) Inhale 1 Puff by mouth in the morning. 60 Blister Dosing Unit 1 Senna 8.6 MG Oral Capsule Take 8.6 mg by mouth in the morning and 8.6 mg before bedtime. 180 Capsule 1 Current Facility-Administered Medications Medication Dose Route Frequency Provider Last Rate Last Admin albuterol sulfate (PROVENTIL) (2.5 MG/3ML) 0.083% inhalation solution 2.5 mg 2.5 mg Nebulizer Resp Q4H [place] CRNP 2.5 mg at 09/13/18 1414 Past Medical History: Diagnosis Date Acquired hypothyroidism Arthritis of knee Diverticulosis of colon 04/15/2011 DVT (deep venous thrombosis) ([facility]) 2011 LLE--following knee replacement Dyslipidemia, goal LDL below 100 01/03/2016 Elevated plasma metanephrines 02/12/2014 Esophagitis, unspecified Hypertensive heart failure ([facility]) Hypertensive kidney disease with chronic kidney disease stage III ([facility]) 04/03/2019 Moderate episode of recurrent major depressive disorder ([facility]) 01/22/2020 Morbid obesity with body mass index of 50.0-59.9 in adult ([facility]) 06/30/2018 Other specified acquired hypothyroidism [...] FLEXIBLE, DIAGNOSTIC 11/22/2018 hiatal hernia / [facility] EXPLORATION OF ABDOMEN x 3 LIGATE/CUT OVIDUCT(S) 1971 MAMMOGRAM SCREENING BILATERAL 03/13/2014 almost entirely fat, category 1 normal OTHER (INFORMATION) 1973 knee surgery OTHER (INFORMATION) 10/19/2011 L knee replacement REMOVE GALLBLADDER 1971 REMOVE TONSILS & ADENOIDS, UNDER 12 TENDON SHEATH INCISION, FINGER Right 10/19/2017 TOTAL ABD HYSTERECTOMY W/WO REMOVAL OF TUBE(S) 1985 TOTAL HYSTERECTOMY Review of patient's allergies indicates: Allergen Reactions Actonel [Bisphosphonates] Hives, Other (Please comment) and Rash Dysphagia Aminoquinolines Hives Iodinated Contrast Media Dilaudid [Hydromorphone Hcl] Unknown Gabapentin Hives Imuran [Azathioprine Sodium] Hives Methotrexate Hives Minocycline Hcl Hives Norvasc [Calcium Channel Blockers] Unknown Nsaids Hives Luflunomide also causes hives Parathyroid Hormone (Recomb) Edema Other and Other (Please comment) General malaise Lower extremity edema Family History Problem Relation Name Age of Onset Arthritis Father at age 26 ? arthritis ? Heart Disorder Mother CHF Cancer Mother bladder and lung Other (chf) Mother Lung Disorder Aunt (Unspecified) Cancer Brother prostate No Past Hx Sister No Past Hx Sister Cancer Uncle (Unspecified) prostate/bone Heart disease Son Heart disease Son Social History Tobacco Use Smoking status: Former Current packs/day: 0.00 Average packs/day: 0.3 packs/day for 16.0 years (4.0 ttl pk-yrs) Types: Cigarettes Start date: 07/19/1958 Quit date: 07/19/1974 Years since quittin.8 Smokeless tobacco: Never Substance Use Topics Alcohol use: No Vaping/E-Cigarette Use Vaping/E-Cigarette Use Never User Vaping/E-Cigarette Substances Vaping/E-Cigarette Devices ROS: -Per HPI OBJECTIVE: BP 114/62 | Pulse 63 | Temp 36.3 C (97.4 F) | Wt 126 kg (277 lb 12.8 oz) | SpO2 90% | BMI 49.21kg/m | BSA 2.37 m PHYSICAL EXAM: Vitals are reviewed General:. NAD, well developed HEENT:. Normal Conjunctiva, EOMI Cardiac:. Systolic murmur, Normal S1, S2 Lungs:. CTA, no wheezing or crackles MSK:. No LE edema Psych:. AAOx3, normal affect ASSESSMENT/PLAN: Due to persistent respiratory symptoms and no improvement with adviar will get repeat PFTs - pulm referral - pt would like to try trelegy --- med sent Mild persistent asthma without complication (Primary) - Trelegy Ellipta 200-62.5-25 MCG/ACT Aerosol Powder Breath Activated (Ddlvkufrzkb-Guvwbaucybme-Enyykijars); Inhale 1 Puff by mouth in the morning. - PULMONARY REFERRAL OP - SPIROMETRY B/A BRONCHODILATOR - LUNG VOLUMES (PLETHYSMOGRAPHY) - DIFFUSION CAPACITY (DLCO) Chronic hypoxemic respiratory failure (HCC) - pulm referral HTN, goal below 140/90 - BP wnl Hypertensive heart failure (HCC) - euvolmic on exam Chronic kidney disease with symptom management only, stage 3 (moderate) (HCC) - will do labs next visit Follow Up: Return in about 6 months (around 11/15/2024). Xavier Zavala MD Family medicine, [address] [id number] documented in this encounter Nursing Notes * Carin Pace CMA - 05/17/2024 2:01 PM EDT She is here for a regular recheck today. She is doing ok. She has fallen since her last visit. She stopped using her advair. He gives her sores in her mouth. She would like to try trelegy if possible. She got a different wrapper sizer of her singulair. She has had a cough recently. She thinks it is from the change. Her daughter isn't sure. documented in this encounter Plan of Treatment Upcoming Encounters Date Type Department Care Team (Late st Contact Info) Description 06/01/2024 2:30 PM EST Cardiac Studies Cardiac Studies, [facility] [address] [place] [phone] 06/13/2024 2:30 PM EST Office Visit Cardiology [address] [place] [phone] Akshat Che PA-C [address] [place] [address] 01/24/2025 2:20 PM EDT Office Visit [address] [place] [phone] Xavier Zavala MD [address] [place] [address] [place] [id number] 03/05/2025 2:20 PM EDT Office Visit Dermatology [address] [place] [phone] Lois Batista PA-C [address] [place] [address] [place] [phone] 08/15/2025 2:20 PM EST Office Visit [address] [place] [phone] Xavier Zavala MD [address] [place] [address] [place] [id number] Scheduled Orders Name Type Priority Associated Diagnoses Orde r Schedule SPIROMETRY B/A BRONCHODILATOR Procedures Routine Mild persistent asthma without complication Ordered: 05/17/2024 LUNG VOLUMES (PLETHYSMOGRAPHY) Procedures Routine Mild persistent asthma without complication Ordered: 05/17/2024 DIFFUSION CAPACITY (DLCO) Procedures Routine Mild persistent asthma without complication Ordered: 05/17/2024 Scheduled Referrals Name Type Priority Associated Diagnoses Orde r Schedule PULMONARY REFERRAL OP Referral Within 30 days (routine) Mild persistent asthma without complication Ordered: 05/17/2024 Health Maintenance Due Date Last Done Comments DTap/Tdap Vaccines (1 - Tdap) 1961 Adult Wellness Visit 2008 Zoster Vaccines (2 of 3) 07/14/2012 05/19/2012 Depression Monitoring 01/21/2021 01/22/2020 *BISPHONATE OR OTHER ACCEPTABLE MEDICATION NEEDED FOR OSTEOPOROSIS (REFER TO SMARTSET #1146) 07/03/2022 CKD HGB USE SMARTSET 89170 06/30/202306/30, 11/04/2021, 07/30/2021, Additional history exists CKD PHOS USE SMARTSET 66718 06/30/202306/18, 08/25/2021, 09/12/2020, Additional history exists COVID-19 [...] D LEVEL ONCE IN A LIFETIME-USE SMARTSET# [id number] Completed 06/30/2022, 08/25/2021, 01/16/2020, Additional history exists HPV (Gardasil) Vaccine Aged Out No lo nger eligible based on patient's age to complete this topic MENINGOCOCCAL (MENACTRA/MENVEO) Aged Out No longer eligible based on patient's age to complete this topic documented as of this encounter Medical Devices Not on filedocumented as of this encounter Visit Diagnoses Diagnosis Mild persistent asthma without complication- Primary Unspecified asthma Chronic hypoxemic respiratory failure (HCC) Chronic respiratory failure HTN, goal below 140/90 Unspecified essential hypertension Hypertensive heart failure (HCC) Unspecified hypertensive heart disease with heart failure Chronic kidney disease with symptom management only, stage 3 (moderate) (HCC) documented in this encounter Care Teams Metal Roofing Mechanic Relationship Specialty Start Date End Date Xavier Zavala MD [address] [place] [address] [place] [phone] PCP - General Family Medicine 04/28/21 documented as of this encounter"
--- OUTSIDE RECORDS SUMMARY | 2024-07-22 02:17 | External Medical Summary | Summary of Care ---
Author Name Unknown Organization [facility] Address [address] [place] [address] Phone [phone] Care Team Providers Care Visiting Teacher Name Role Phone Xavier Zavala MD Primary Care Provide r Reason for Visit * Reason Comments Mohs Surgery Pt presents today fo r Mohs surgery on R mid helix. * Evaluate & Treat - Unlimited Visits (Within 10 days (routine)) - Authorized Specialty Diagnoses / Procedures Referred By Gurwinder vincent Referred To Contact Dermatology Diagnoses Bush's disease of right ear Lois Batista PA-C [address] [place] [address] [place] [id number] Referral ID Status Reason Start Date Expiration Date Visits Requested Visits Authorized [id number] Authorized Specialty Services Required 03/01/2024 [id number] Encounter Details Date Type Department Care Team (Late st Contact Info) Description 04/03/2024 10:00 AM EDT Office Visit MOHS Surgery [facility] [address] [place] [address] Sweetie Gonzalez MD [address] [place] [address] 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 Active Lactobacillus (PROBIOTIC ACIDOPHILUS) TABS Take 1 Tab by mouth daily. Active home oxygen/equipment IN GAS Inhale 2 L by mouth at bedtime. Active Tylenol PM Extra Strength 500-25 MG Oral Tablet (diphenhydrAMINE-APA P (sleep)) Take 2 Tablets by mouth at bedtime. Active Albuterol Sulfate HFA 108 (90 Base) MCG/ACT Inhalation Aerosol SolutionIndications: Mild persistent asthma without complication INHALE TWO PUFFS BY MOUTH EVERY 4 HOURS NEEDED FOR SHORTNESS OF BREATH OR FOR WHEEZING (BULK) 18 g 5 10/14/2022 Active Advair HFA 230-21 MCG/ACT Inhalation Aerosol (fluticasone-[place] rol)Indications:Mild persistent asthma without complication Inhale 2 Puffs by mouth in the morning and 2 Puffs before bedtime. 36 g 2 10/14/2022 Active Docusate Sodium 100 MG Oral Capsule (Colace)Indications: Constipation, unspecified constipation type Take 1 Capsule by mouth in the morning and 1 Capsule before bedtime. 180 Capsule 1 10/14/2022 Active Additional Information Patient taking differently:100 mg OralPRN, Reported on 11/30/2023 Senna 8.6 MG Oral CapsuleIndications:C onstipation, unspecified constipation type,Abdominal pain, generalized Take 8.6 mg by mouth in the morning and 8.6 mg before bedtime. 180 Capsule 1 10/14/2022 Active Allopurinol 100 MG Oral Tablet (Zyloprim)Indication s:Chronic gout due to renal impairment of multiple sites without tophus Take 2 Tablets by mouth in the morning. 180 Tablet 4 08/04/2023 Active Atorvastatin Calcium 10 MG Oral Tablet (Lipitor)Indications :Dyslipidemia, goal LDL below 100 TAKE 1 TABLET BY MOUTH ON WEDNESDAY, WEDNESDAY AND WEDNESDAY 40 Tablet 3 09/24/2023 Active Zoster Vac Recomb Adjuvanted 50 MCG/0.5ML Intramuscular Suspension Reconstituted (Shingrix)Indication s:Need for shingles vaccine Inject 0.5 mL into a large muscle now and repeat dose in 60 to 180 days 1 Each 1 10/20/2023 Active Additional Information Patient not taking.Reported on 11/30/2023 predniSONE 5 MG Oral Tablet (Deltasone)Indicatio ns:Arthritis of knee TAKE ONE TABLET BY MOUTH IN THE MORNING 90 Tablet 3 10/22/2023 Active Vitron-C 65-125 MG Oral Tablet (Iron-Vitamin C 65-125 mg per tab)Indications:Iron deficiency anemia, unspecified iron deficiency anemia type TAKE 1 TABLET BY MOUTH ON WEDNESDAY, WEDNESDAY AND WEDNESDAY 45 Tablet 3 10/22/2023 Active Metoprolol Tartrate 25 MG Oral Tablet (Lopressor)Indicatio ns:HTN, goal below 140/90 TAKE 1/2 TABLET BY MOUTH TWICE DAILY 90 Tablet 1 11/23/2023 Active amLODIPine Besylate 5 MG Oral Tablet (Norvasc)Indications :HTN, goal below 140/90 TAKE ONE TABLET BY MOUTH IN THE MORNING 90 Tablet 1 11/23/2023 Active DULoxetine HCl 30 MG Oral Capsule Delayed Release Particles (Cymbalta)Indication s:Spinal stenosis of lumbar region, unspecified whether neurogenic claudication present,Recurrent major depressive disorder, in partial remission (HCC),Arthritis of knee TAKE ONE CAPSULE BY MOUTH IN THE MORNING 90 Capsule 1 11/23/2023 Active Levothyroxine Sodium 150 MCG Oral Tablet (Levoxyl)Indications :Acquired hypothyroidism TAKE ONE TABLET BY MOUTH IN THE MORNING 90 Tablet 1 11/23/2023 Active Montelukast Sodium 10 MG Oral Tablet (Singulair) TAKE ONE TABLET BY MOUTH AT BEDTIME 90 Tablet 1 11/23/2023 Active Restasis 0.05 % Ophthalmic Emulsion 11/16/2023 Activ e Macular Health Formula Oral Capsule Take 3 Capsules by mouth every morning. Active Lisinopril 20 MG Oral Tablet (Prinivil)Indication s:Hypertensive kidney disease with stage 3b chronic kidney disease (HCC) TAKE ONE TABLET BY MOUTH IN THE MORNING 90 Tablet 3 12/17/2023 Active Furosemide 20 MG Oral Tablet (Lasix)Indications:A cute heart failure with preserved ejection fraction (HCC) TAKE ONE TABLET BY MOUTH IN THE MORNING 90 Tablet 3 12/17/2023 Active Omeprazole 40 MG Oral Capsule Delayed Release (PriLOSEC)Indication s:Abdominal pain, generalized TAKE ONE CAPSULE BY MOUTH EVERY DAY 90 Capsule 1 12/17/2023 Active Pregabalin 100 MG Oral Capsule (Lyrica)Indications: Small fiber neuropathy TAKE ONE CAPSULE BY MOUTH IN THE MORNING AND TWO CAPSULES in the evening 270 Capsule 03/13/2024 Active Hospital, Clinic, or Other Facility Administered Medication Ordered Dose Route Frequency Start Date End Date Status albuterol sulfate (PROVENTIL) (2.5 MG/3ML) 0.083% inhalation solution 2.5 mgIndications:Moderate persistent asthma without complication 2.5 mg NEBULIZER [id number] 07/22/2018 Active documented as of this encounter (statuses as of 04/08/2024) Active Problems Problem Noted Date Diagnosed Date [...] as of this encounter (statuses as of 04/08/2024) Resolved Problems Problem Noted Date Diagnosed Date [...] as of this encounter (statuses as of 04/08/2024) Immunizations Name Administration Dates Next Due Hepatitis B, 20+ yrs 12/09/2020,08/01/2020,06/07 Pneumococcal Conjugate Vacc, 13 Valent (Prevnar) 08/21/2014 Pneumococcal Polysaccharide PPV23 (Pneumovax) 04/03/2011 Seasonal Influenza, PF, 6 M & above, IM , (FluLaval or Fluzone) 05/19/2018 Seasonal Influenza, Quadriva lent Hd (Fluzone Hd) 05/06/2022,04/24/2021 Seasonal Influenza, Quadriva lent Hd, 65+ Yrs 05/03/2023 Seasonal Influenza, Quadriva lent, No Preserve, IM 07/07/2016,06/03/2015 Seasonal Influenza, Trivalen t, (IIV3), with Preserv, (Fluzone) 05/30/2014,04/20/2013,05/30/2012,04/15,04/20/2006 Seasonal Influenza, Trivalen t, Adjuvanted, 65+ YRS, [...] Pressure - - Pulse - - Temperature 36.1 C (97 F) 04/03/2024 9:49 AM EDT Respiratory Rate - - Oxygen Saturation - - Inhaled Oxygen Concentration - - Weight - - Height - - Body Mass Index - - documented in this encounter Progress Notes * Sweetie Gonzalez MD - 04/04/2024 7:39 PM EDT [facility] Mohs Surgery Note (See separate transcribed operative note for further detail) History: Kandi Spivey is a 84 year old patient seen at the request of Lois Batista PA-C for evaluation and management of the following lesion: A. Skin, R mid helix of ear, shave: Squamous cell carcinoma in situ, Bush type Patient problem list reviewed. Patient medication/allergy lists reviewed. Examination: Kandi Spivey is alert, oriented and appears well and in no distress. The patient's skin is remarkable for: Right mid helix of ear: 0.8 x 0.8 cm pink thin papule Impression/Plan: 1. 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 Microscopic examination of the specimen allowed the Mohs surgeon, whose dual role is to function as both surgeon and pathologist, to precisely identify the location of any remaining tumor or ascertain that the tissue margins were free of tumor. This process of excision of remaining tumor, mapping, and histologic exam was repeated until the tumor was excised completely. Patient identified, procedure verified, site identified and verified with the patient. Time out completed. Surgical removal of the lesion discussed with the patient (risks and benefits, including possibility of scarring, infection, bleeding, recurrence or potential for further treatment). I have specifically identified the site with the patient. I have discussed the fact that the patient will have a scar after the procedure regardless of granulation or repair with sutures. I have discussed that the repair options can range from granulation in some cases to linear or curvilinear closures to larger flaps or grafts. There is a risk of injury to nerves causing temporary or permanent numbness. Questions answered and verbal and written consent was obtained. 2 stage(s) Anesthetic: 0.05% lidocaine with 1:100,000 epinephrine. Repair: Primary complex layered repair (see separate operative report for details) Absorbable sutures Wound care was discussed verbally, demonstrated and printed wound instructions given as well as wound care supplies. Patient instructed to call with questions or concerns. Personal contact information provided. Follow-up: as needed Sweetie Gonzalez MD Associate, Mohs Micrographic Surgery & Dermatologic Surgery 04/03/2024 documented in this encounter Nursing Notes * Judy Ardon LPN - 04/03/2024 9:51 AM EDT Chief Complaint Patient presents with Mohs Surgery Pt presents today for Mohs surgery on R mid helix. Referral Doctor: WALTER Batista Hypertension History: Yes, refer to medication information for treatment. Diabetes History: No Thyroid History: Yes, refer to medication information for treatment. Bleeding Tendency: No Artificial Valve or Joint: yes (knee - 2012) Pacemaker: no Defibrillator: no Hepatitis/HIV Exposure: No Smoking: no Consent signed yes documented in this encounter Miscellaneous Notes * Letters - Sweetie Gonzalez MD - 04/03/2024 2:00 PM EDT Department of Dermatology M.[address] [place] [address] [place] [address] Sweetie Gonzalez M.D. Associate Dermatologic Surgery April 03, 2024 Lois Batista [facility] [place] 52[address] Kandi Spivey [id number] MOHS CASE: [id number] DX: squamous cell carcinoma in situ Dear Referring Provider, Kandi Spivey was seen in our office today for treatment of squamous cell carcinoma in situ of the right mid helix. The lesion was treated with Mohs micrographic surgery, and required 2 stages for complete removal. The surgical defect was repaired with a complex linear closure. Thank you very much for referring your patient to our clinic. Yours truly, Sweetie Gonzalez M.D. documented in this encounter Plan of Treatment Upcoming Encounters Date Type Department Care Team (Late st Contact Info) Description 05/17/2024 2:20 PM EDT Office Visit Family Medicine [address] [place] [phone] Xavier Zavala MD [address] [place] [address] [place] [address] 05/17/2024 3:00 PM EDT Laboratory Laboratory [address] [place] [phone] [facility] [address] [place] [address] 06/01/2024 2:30 PM EST Cardiac Studies Cardiac Studies, [facility] [address] [place] [address] 06/13/2024 2:30 PM EST Office Visit Cardiology [address] [place] [address] Akshat Che PA-C [address] [place] [address] 03/05/2025 2:20 PM EDT Office Visit Dermatology [address] [place] [address] Losi Batista PA-C [address] [place] [address] [place] [address] Scheduled Referrals Name Type Priority Associated Diagnoses Orde r Schedule MOHS SURGERY REFERRAL OP Referral Within 10 days (routine) Bush's disease of right ear Ordered: 03/01/2024 Health Maintenance Due Date Last Done Comments DTap/Tdap Vaccines (1 - Tdap) 1959 Adult Wellness Visit 2008 Zoster Vaccines (2 of 3) 07/14/2012 05/19/2012 Depression Monitoring 01/21/2021 01/22/2020 *BISPHONATE OR OTHER ACCEPTABLE MEDICATION NEEDED FOR OSTEOPOROSIS (REFER TO SMARTSET #1146) 07/03/2022 CKD HGB USE SMARTSET 83940 06/30/202306/30, 11/04/2021, 07/30/2021, Additional history exists CKD PHOS USE SMARTSET 89011 06/30/202306/18, 08/25/2021, 09/12/2020, Additional history exists COVID-19 [...] D LEVEL ONCE IN A LIFETIME-USE SMARTSET# 05536 Completed 06/30/2022, 08/25/2021, 01/16/2020, Additional history exists HPV (Gardasil) Vaccine Aged Out No lo nger eligible based on patient's age to complete this topic MENINGOCOCCAL (MENACTRA/MENVEO) Aged Out No longer eligible based on patient's age to complete this topic documented as of this encounter Medical Devices Not on filedocumented as of this encounter Visit Diagnoses Diagnosis 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
--- OUTSIDE RECORDS SUMMARY | 2024-07-22 02:17 | External Medical Summary | Summary of Care ---
Author Name Unknown Organization [facility] Address [address] [place] [address] Phone [phone] Care Team Providers Care Barrel Handler Name Role Phone Xavier Zavala MD Primary Care Provide r Reason for Visit * Reason Comments eRx-Medication Refill Encounter Details Date Type Department Care Team (Late st Contact Info) Description 06/01/2024 Refill Family Medicine [address] [phone] Xavier Zavala MD [address] [place] [address] [place] [address] Encounter for long-term (current) use of medications*; Abdominal pain, generalized Allergies Active Allergy Reactions Criticality Noted Date [...] as of this encounter (statuses as of 06/02/2024) Medications ERGOCALCIFEROL 400 UNIT PO TABS 1 [...] 024 Active Restasis 0.05 % Ophthalmic Emulsion 024 Active Macular Health Formula Oral Capsule Take [...] THE MORNING 90 Tablet 3 024 Active Pregabalin 100 MG Oral Capsule (Lyrica)Indicatio ns:Small fiber neuropathy TAKE ONE CAPSULE BY MOUTH IN THE MORNING AND TWO CAPSULES in the evening 270 Capsule 024 Active amLODIPine Besylate 5 MG Oral [...] THE MORNING 90 Capsule 1 024 Active Omeprazole 40 MG Oral Capsule Delayed Release (PriLOSEC)Indicat ions:Abdominal pain, generalized TAKE ONE CAPSULE BY MOUTH EVERY DAY 90 Capsule 1 024 2023 Discontinued Hospital, Clinic, or Other Facility Administered Medication Ordered Dose Route Frequency Start Date End Date Status albuterol sulfate (PROVENTIL) (2.5 MG/3ML) 0.083% inhalation solution 2.5 mgIndications:Moderate persistent asthma without complication 2.5 mg NEBULIZER [id number] 07/22/2018 Active documented as of this encounter (statuses as of 06/02/2024) Active Problems Problem Noted Date Diagnosed Date [...] as of this encounter (statuses as of 06/02/2024) Resolved Problems Problem Noted Date Diagnosed Date [...] as of this encounter (statuses as of 06/02/2024) Immunizations Name Administration Dates Next Due Hepatitis [...] encounter Miscellaneous Notes * Telephone Encounter - Nunu Blackwell [facility] - 06/02/2024 5:18 PM EST Signed Prescriptions: Disp Refills Omeprazole 40 MG Oral Capsule Delayed Rele*90 Cap*1 Sig: TAKE ONE CAPSULE IN THE MORNINGAuthorizing Provider: Elena ZAVALA User: NUNU BLACKWELL * Telephone Encounter - Nunu Blackwell [facility] - 06/02/2024 5:17 PM EST Per refill protocol patient needs magnesium and vitamin B-12 labs on file within the past 2 years while using PPIs. Lab work ordered. Patient may obtain with next routine labs. Thank you, Kai Blackwell, PharmD Clinical Pharmacist [facility] 06/02/24 5:18 PM [phone] documented in this encounter Plan of Treatment Upcoming Encounters Date Type Department Care Team (Late st Contact Info) Description 06/12/2024 9:00 AM EST Office Visit Pulmonary Medicine, [facility] [address] [place] [address] Rubin Crockett, DO [address] [place] [address] 06/13/2024 2:30 PM EST Office Visit Cardiology [address] [place] [address] Akshat Che PA-C [address] [place] [address] 06/29/2024 3:30 PM EST Cardiac Studies Cardiac Studies, [facility] [address] [place] [address] 01/09/2025 3:00 PM EDT Office Visit Pulmonary Medicine, [facility] [address] [place] [address] Deep Frank MD [address] [place] [address] 01/24/2025 2:20 PM EDT Office Visit [address] [phone] Xavier Zavala MD [address] [place] [address] [place] [address] 03/05/2025 2:20 PM EDT Office Visit Dermatology [address] [place] [address] Lois Batista PA-C [address] [place] [address] [place] [address] 08/15/2025 2:20 PM EST Office Visit [address] [place] [phone] Xavier Zavala MD [address] [place] [address] [place] [address] Scheduled Orders Name Type Priority Associated Diagnoses Orde r Schedule VITAMIN B12 Lab Routine Encounter for long-term (current) use of medications Expected: 06/16/2024 (Approximate), Expires: 06/02/2025 MAGNESIUM Lab Routine Encounter for long-term (current) use of medications Expected: 06/16/2024 (Approximate), Expires: 06/02/2025 Health Maintenance Due Date Last Done Comments DTap/Tdap Vaccines (1 - Tdap) 1959 Adult Wellness Visit 2008 Zoster Vaccines (2 of 3) 07/14/2012 05/19/2012 Depression Monitoring 01/21/2021 01/22/2020 *BISPHONATE OR OTHER ACCEPTABLE MEDICATION NEEDED FOR OSTEOPOROSIS (REFER TO SMARTSET #1146) 07/03/2022 CKD HGB USE SMARTSET 70373 06/30/202306/30, 11/04/2021, 07/30/2021, Additional history exists CKD PHOS USE SMARTSET 87552 06/30/202306/18, 08/25/2021, 09/12/2020, Additional history exists COVID-19 [...] D LEVEL ONCE IN A LIFETIME-USE SMARTSET# 08208 Completed 06/30/2022, 08/25/2021, 01/16/2020, Additional history exists HPV (Gardasil) Vaccine Aged Out No lo nger eligible based on patient's age to complete this topic MENINGOCOCCAL (MENACTRA/MENVEO) Aged Out No longer eligible based on patient's age to complete this topic documented as of this encounter Medical Devices Not on filedocumented as of this encounter Visit Diagnoses Diagnosis Encounter for long-term (current) use of medications- Primary Encounter for long-term (current) use of other medications Abdominal pain, generalized documented in this encounter Care Teams Barrel Handler Relationship Specialty Start Date End Date Xavier Zavala MD [address] [place] [address] [place] [address] PCP - General Family Medicine 04/28/21 documented as of this encounter
--- OUTSIDE RECORDS SUMMARY | 2024-07-22 02:17 | External Medical Summary | Summary of Care ---
Author Name Unknown Organization [facility] Address [address] [place] [address] Phone [phone] Care Team Providers Care Plastic Manager Name Role Phone Xavier Zavala MD Primary Care Provide r Reason for Visit * Reason Comments eRx-Medication Refill Encounter Details Date Type Department Care Team (Late st Contact Info) Description 05/04/2024 Refill Family Medicine [address] [phone] Xavier Zavala MD [address] [place], [place] [address] [id number] HTN, goal below 140/90; Spinal stenosis of lumbar region, unspecified whether neurogenic claudication present; Recurrent major depressive disorder, in partial remission (HCC); Arthritis of knee; Acquired hypothyroidism Allergies Active Allergy Reactions Criticality Noted Date [...] as of this encounter (statuses as of 05/05/2024) Medications Medication Sig Dispensed Refills Start Date [...] PM Extra Strength 500-25 MG Oral Tablet (diphenhydrAMINE-AP AP (sleep)) Take 2 Tablets by mouth at bedtime. Active Albuterol Sulfate HFA 108 (90 Base) MCG/ACT Inhalation Aerosol SolutionIndications :Mild persistent asthma without complication INHALE TWO PUFFS BY MOUTH EVERY 4 HOURS NEEDED FOR SHORTNESS OF BREATH OR FOR WHEEZING (BULK) 18 g 5 3 Active Advair HFA 230-21 MCG/ACT Inhalation Aerosol (fluticasone-Salmet destiny)Indications:Mi ld persistent asthma without complication Inhale 2 Puffs by mouth in the morning and 2 Puffs before bedtime. 36 g 2 3 Active Docusate Sodium 100 MG Oral Capsule (Colace)Indications :Constipation, unspecified constipation type Take 1 Capsule by mouth in the morning and 1 Capsule before bedtime. 180 Capsule 1 3 Active Additional Information Patient taking differently:100 mg OralPRN, Reported on 11/30/2023 Senna 8.6 MG Oral CapsuleIndications: Constipation, unspecified constipation type,Abdominal pain, generalized Take 8.6 mg by mouth in the morning and 8.6 mg before bedtime. 180 Capsule 1 3 Active Allopurinol 100 MG Oral Tablet (Zyloprim)Indicatio ns:Chronic gout due to renal impairment of multiple sites without tophus Take 2 Tablets by mouth in the morning. 180 Tablet 4 4 Active Atorvastatin Calcium 10 MG Oral Tablet (Lipitor)Indication s:Dyslipidemia, goal LDL below 100 TAKE 1 TABLET BY MOUTH ON WEDNESDAY, WEDNESDAY AND WEDNESDAY 40 Tablet 3 4 Active Zoster Vac Recomb Adjuvanted 50 MCG/0.5ML Intramuscular Suspension Reconstituted (Shingrix)Indicatio ns:Need for shingles vaccine Inject 0.5 mL into a large muscle now and repeat dose in 60 to 180 days 1 Each 1 4 Active Additional Information Patient not taking.Reported on 11/30/2023 predniSONE 5 MG Oral Tablet (Deltasone)Indicati ons:Arthritis of knee TAKE ONE TABLET BY MOUTH IN THE MORNING 90 Tablet 3 4 Active Vitron-C 65-125 MG Oral Tablet (Iron-Vitamin C 65-125 mg per tab)Indications:Iro n deficiency anemia, unspecified iron deficiency anemia type TAKE 1 TABLET BY MOUTH ON WEDNESDAY, WEDNESDAY AND WEDNESDAY 45 Tablet 3 4 Active Restasis 0.05 % Ophthalmic Emulsion 4 Active Macular Health Formula Oral Capsule Take 3 Capsules by mouth every morning. Active Lisinopril 20 MG Oral Tablet (Prinivil)Indicatio ns:Hypertensive kidney disease with stage 3b chronic kidney disease (HCC) TAKE ONE TABLET BY MOUTH IN THE MORNING 90 Tablet 3 4 Active Furosemide 20 MG Oral Tablet (Lasix)Indications: Acute heart failure with preserved ejection fraction (HCC) TAKE ONE TABLET BY MOUTH IN THE MORNING 90 Tablet 3 4 Active Omeprazole 40 MG Oral Capsule Delayed Release (PriLOSEC)Indicatio ns:Abdominal pain, generalized TAKE ONE CAPSULE BY MOUTH EVERY DAY 90 Capsule 1 4 Active Pregabalin 100 MG Oral Capsule (Lyrica)Indications :Small fiber neuropathy TAKE ONE CAPSULE BY MOUTH IN THE MORNING AND TWO CAPSULES in the evening 270 Capsule 4 Active amLODIPine Besylate 5 MG Oral Tablet (Norvasc)Indication s:HTN, goal below 140/90 TAKE ONE TABLET IN THE MORNING 90 Tablet 1 4 Active Montelukast Sodium 10 MG Oral Tablet (Singulair) TAKE ONE TABLET AT BEDTIME 90 Tablet 1 4 Active Metoprolol Tartrate 25 MG Oral Tablet (Lopressor)Indicati ons:HTN, goal below 140/90 TAKE 1/2 TABLET TWICE DAILY 90 Tablet 1 4 Active DULoxetine HCl 30 MG Oral Capsule Delayed Release Particles (Cymbalta)Indicatio ns:Spinal stenosis of lumbar region, unspecified whether neurogenic claudication present,Recurrent major depressive disorder, in partial remission (HCC),Arthritis of knee TAKE ONE CAPSULE IN THE MORNING 90 Capsule 1 4 Active Levothyroxine Sodium 150 MCG Oral Tablet (Levoxyl)Indication s:Acquired hypothyroidism TAKE ONE TABLET IN THE MORNING 90 Tablet 1 4 Active Metoprolol Tartrate 25 MG Oral Tablet (Lopressor)Indicati ons:HTN, goal below 140/90 TAKE 1/2 TABLET BY MOUTH TWICE DAILY 90 Tablet 1 4 05/05/20 24 Discontinued amLODIPine Besylate 5 MG Oral Tablet (Norvasc)Indication s:HTN, goal below 140/90 TAKE ONE TABLET BY MOUTH IN THE MORNING 90 Tablet 1 4 05/05/20 24 Discontinued DULoxetine HCl 30 MG Oral Capsule Delayed Release Particles (Cymbalta)Indicatio ns:Spinal stenosis of lumbar region, unspecified whether neurogenic claudication present,Recurrent major depressive disorder, in partial remission (HCC),Arthritis of knee TAKE ONE CAPSULE BY MOUTH IN THE MORNING 90 Capsule 1 4 05/05/20 24 Discontinued Levothyroxine Sodium 150 MCG Oral Tablet (Levoxyl)Indication s:Acquired hypothyroidism TAKE ONE TABLET BY MOUTH IN THE MORNING 90 Tablet 1 4 05/05/20 24 Discontinued Montelukast Sodium 10 MG Oral Tablet (Singulair) TAKE ONE TABLET BY MOUTH AT BEDTIME 90 Tablet 1 4 05/05/20 24 Discontinued Hospital, Clinic, or Other Facility Administered Medication Ordered Dose Route Frequency Start Date End Date Status albuterol sulfate (PROVENTIL) (2.5 MG/3ML) 0.083% inhalation solution 2.5 mgIndications:Moderate persistent asthma without complication 2.5 mg NEBULIZER [id number] 07/22/2018 Active documented as of this encounter (statuses as of 05/05/2024) Active Problems Problem Noted Date Diagnosed Date [...] as of this encounter (statuses as of 05/05/2024) Resolved Problems Problem Noted Date Diagnosed Date [...] as of this encounter (statuses as of 05/05/2024) Immunizations Name Administration Dates Next Due Hepatitis [...] encounter Miscellaneous Notes * Telephone Encounter - Katie Albarran, [facility] - 05/05/2024 3:50 PM EDT Signed Prescriptions: Disp Refills amLODIPine Besylate 5 MG Oral Tablet (Norv*90 Tab*1 Sig: TAKE ONE TABLET IN THE MORNINGAuthorizing Provider: Elena ZAVALA User: KATIE ALBARRAN Montelukast Sodium 10 MG Oral Tablet (Sing*90 Tab*1 Sig: TAKE ONE TABLET AT BEDTIMEAuthorizing Provider: Elena ZAVALA User: KATIE ALBARRAN Metoprolol Tartrate 25 MG Oral Tablet (Lop*90 Tab*1 Sig: TAKE 1/2 TABLET TWICE DAILYAuthorizing Provider: Elena ZAVALA User: KATIE ALBARRAN DULoxetine HCl 30 MG Oral Capsule Delayed *90 Cap*1 Sig: TAKE ONE CAPSULE IN THE MORNINGAuthorizing Provider: Elena ZAVALA User: KATIE ALBARRAN Levothyroxine Sodium 150 MCG Oral Tablet (*90 Tab*1 Sig: TAKE ONE TABLET IN THE MORNINGAuthorizing Provider: Elena ZAVALA User: KATIE ALBARRAN documented in this encounter Plan of Treatment Upcoming Encounters Date Type Department Care Team (Late st Contact Info) Description 05/17/2024 2:20 PM EDT Office Visit Family Medicine [address] [place] [phone] Xavier Zavala MD [address] [place] [address] [place] [address] 05/17/2024 3:00 PM EDT Laboratory Laboratory [address] [place] [phone] [facility] [address] [place] [address] 06/01/2024 2:30 PM EST Cardiac Studies Cardiac Studies, [facility] [address] [place] [address] 06/13/2024 2:30 PM EST Office Visit Cardiology [address] [place] [address] Akshat Che PA-C [address] [place] [address] 03/05/2025 2:20 PM EDT Office Visit Dermatology [address] [place] [address] Lois Batista PA-C [address] [place] [address] [place] [address] Health Maintenance Due Date Last Done Comments DTap/Tdap Vaccines (1 - Tdap) 1959 Adult Wellness Visit 2008 Zoster Vaccines (2 of 3) 07/14/2012 05/19/2012 Depression Monitoring 01/21/2021 01/22/2020 *BISPHONATE OR OTHER ACCEPTABLE MEDICATION NEEDED FOR OSTEOPOROSIS (REFER TO SMARTSET #1146) 07/03/2022 CKD HGB USE SMARTSET 60960 06/30/202306/30, 11/04/2021, 07/30/2021, Additional history exists CKD PHOS USE SMARTSET 68565 06/30/202306/18, 08/25/2021, 09/12/2020, Additional history exists COVID-19 [...] D LEVEL ONCE IN A LIFETIME-USE SMARTSET# 42847 Completed 06/30/2022, 08/25/2021, 01/16/2020, Additional history exists HPV (Gardasil) Vaccine Aged Out No lo nger eligible based on patient's age to complete this topic MENINGOCOCCAL (MENACTRA/MENVEO) Aged Out No longer eligible based on patient's age to complete this topic documented as of this encounter Medical Devices Not on filedocumented as of this encounter Visit Diagnoses Diagnosis HTN, goal below 140/90 Unspecified essential hypertension Spinal stenosis of lumbar region, unspecified whether neurogenic claudication present Recurrent major depressive disorder, in partial remission (HCC) Arthritis of knee Unspecified arthropathy, lower leg Acquired hypothyroidism Unspecified hypothyroidism documented in this encounter Care Teams Plastic Manager Relationship Specialty Start Date End Date Xavier Zavala MD [address] [place] [address] [place] [phone] PCP - General Family Medicine 04/28/21 documented as of this encounter
--- OUTSIDE RECORDS SUMMARY | 2024-07-22 02:17 | External Medical Summary | Summary of Care ---
Author Name Unknown Organization [facility] Address [address] [facility] [address] Phone [phone] Care Team Providers Care Front Desk Officer Name Role Phone Xavier Zavala MD Primary Care Provide r Reason for Visit * Reason Onset Date Comments Forms Request 12/27/2023 Paperwork for re ceipts Encounter Details Date Type Department Care Team (Late st Contact Info) Description 12/27/2023 Telephone Family Medicine [address] [phone] Xavier Zavala MD [address] [place] [address] [place] [id number] Forms Request (Paperwork for receipts ) Allergies Active Allergy Reactions Criticality Noted Date [...] as of this encounter (statuses as of 03/27/2024) Medications Medication Sig Dispensed Refills Start Date [...] EVERY DAY 90 Capsule 1 12/17/2023 Active Hospital, Clinic, or Other Facility Administered Medication Ordered Dose Route Frequency Start Date End Date Status albuterol sulfate (PROVENTIL) (2.5 MG/3ML) 0.083% inhalation solution 2.5 mgIndications:Moderate persistent asthma without complication 2.5 mg NEBULIZER [id number] 07/22/2018 Active documented as of this encounter (statuses as of 03/27/2024) Active Problems Problem Noted Date Diagnosed Date [...] as of this encounter (statuses as of 03/27/2024) Resolved Problems Problem Noted Date Diagnosed Date [...] as of this encounter (statuses as of 03/27/2024) Immunizations Name Administration Dates Next Due Hepatitis [...] encounter Miscellaneous Notes * Telephone Encounter - Carin Pace CMA - 12/29/2023 10:29 AM EDT On his desk. * Telephone Encounter - Herlinda Alex OSA - 12/27/2023 2:13 PM EDT Paperwork was dropped off - needs to be signed and faxed when completed. ATTN: Leena [phone] documented in this encounter Plan of Treatment Upcoming Encounters Date Type Department Care Team (Late st Contact Info) Description 04/03/2024 10:00 AM EDT Office Visit [facility] [address] [facility] [address] [facility] [address] 05/17/2024 2:20 PM EDT Office Visit Family Medicine [address] [place] [phone] Xavier Zavala MD [address] [place] [address] [place] [address] 05/17/2024 3:00 PM EDT Laboratory Laboratory [address] [place] [phone] [facility] [address] [place] [address] 06/01/2024 2:30 PM EST Cardiac Studies Cardiac Studies, [facility] [address] [place] [address] 06/13/2024 2:30 PM EST Office Visit Cardiology [address] [place] [address] Akshat Che PA-C [address] [place] [address] 03/05/2025 2:20 PM EDT Office Visit Dermatology [address] [place] [address] Lois Batista PA-C [address] [place] [address] [place] [address] Health Maintenance Due Date Last Done Comments DTap/Tdap Vaccines (1 - Tdap) 1959 Adult Wellness Visit 2008 Zoster Vaccines (2 of 3) 07/14/2012 05/19/2012 Depression Monitoring 01/21/2021 01/22/2020 *BISPHONATE OR OTHER ACCEPTABLE MEDICATION NEEDED FOR OSTEOPOROSIS (REFER TO SMARTSET #1146) 07/03/2022 CKD HGB USE SMARTSET 13708 06/30/202306/30, 11/04/2021, 07/30/2021, Additional history exists CKD PHOS USE SMARTSET 36958 06/30/202306/18, 08/25/2021, 09/12/2020, Additional history exists COVID-19 Vaccine ( - 2022- season) 2024 Influenza Vaccine (FLU shot) (#1) [...] D LEVEL ONCE IN A LIFETIME-USE SMARTSET# 01507 Completed 06/30/2022, 08/25/2021, 01/16/2020, Additional history exists HPV (Gardasil) Vaccine Aged Out No lo nger eligible based on patient's age to complete this topic MENINGOCOCCAL (MENACTRA/MENVEO) Aged Out No longer eligible based on patient's age to complete this topic documented as of this encounter Medical Devices Not on filedocumented as of this encounter Care Teams Front Desk Officer Relationship Specialty Start Date End Date Sellathurai, Thiviyanath, MD [address] [place] [address] [place] [address] PCP - General Family Medicine 04/28/21 documented as of this encounter
--- OUTSIDE RECORDS SUMMARY | 2024-07-22 02:18 | External Medical Summary | Summary of Care ---
Author Name Unknown Organization [facility] Address [address] [facility] [place] [address] Phone [phone] Care Team Providers Care Landing Man Name Role Phone Xavier Zavala MD Primary Care Provide r Reason for Referral * Evaluate & Treat - Unlimited Visits (Within 10 days (routine)) - Authorized Specialty Diagnoses / Procedures Referred By Gurwinder vincent Referred To Contact Dermatology Diagnoses Bush's disease of right ear Lois Batista PA-C [address] [place] [address] [place] [id number] Referral ID Status Reason Start Date Expiration Date Visits Requested Visits Authorized [id number] Authorized Specialty Services Required 03/01/2024 999 999 Question Answer Referral Priority Within 10 days (routine) Where should this appointment be scheduled? [facility] Are you referring the patient for Mohs Surgery and have a current positive skin cancer biopsy result? Yes Type of Procedure MOHS Surgery Comments Lilibeth on R ear, friable lesion- Mohs over Efudex cream Reason for Visit * Reason Onset Date Comments Appointment 03/01/2024 Encounter Details Date Type Department Care Team (Late st Contact Info) Description 03/01/2024 Telephone Dermatology [address] [place] [address] Lois Batista PA-C [address] [place] [address] [place] [address] Appointment Allergies Active Allergy Reactions Criticality Noted Date [...] as of this encounter (statuses as of 03/02/2024) Medications Medication Sig Dispensed Refills Start Date [...] 3 Capsules by mouth every morning. Active Pregabalin 100 MG Oral Capsule (Lyrica)Indications: Small fiber neuropathy TAKE ONE CAPSULE BY MOUTH IN THE MORNING AND TWO CAPSULES in the evening 270 Capsule 12/09/2023 Active Lisinopril 20 MG Oral Tablet (Prinivil)Indication [...] persistent asthma without complication 2.5 mg NEBULIZER [id number] 07/22/2018 Active documented as of this encounter (statuses as of 03/02/2024) Active Problems Problem Noted Date Diagnosed Date [...] as of this encounter (statuses as of 03/02/2024) Resolved Problems Problem Noted Date Diagnosed Date [...] Obesity protocol #1 Persistent insomnia 01/23/2015 06/30/20 Elevated plasma metanephrines 02/12/2014 04/11/2019 CKD (chronic [...] as of this encounter (statuses as of 03/02/2024) Immunizations Name Administration Dates Next Due Hepatitis B, 20+ yrs 12/09/2020,08/01/2020,06/07 Pneumococcal Conjugate Vacc, 13 Valent (Prevnar) 08/21/2014 Pneumococcal Polysaccharide PPV23 (Pneumovax) 04/03/2011 Seasonal Influenza, PF, 6 M & above, IM , (FluLaval or Fluzone) 05/19/2018 Seasonal Influenza, Quadriva lent Hd (Fluzone Hd) 05/06/2022,04/24/2021 Seasonal Influenza, Quadriva lent Hd, 65+ Yrs 05/03/2023 Seasonal Influenza, Quadriva lent, No Preserve, IM 07/07/2016,06/03/2015 Seasonal Influenza, Split, I IV3, With Preserve, Inj 05/30/2014,04/20/2013,05/30/2012,04/15,04/20/2006 Seasonal Influenza, Trivalen t, Adjuvanted, 65+ yrs 05/19/2020,05/31/2019 Varicella Zoster Vaccine (Adult) 05/19/2012 documented [...] encounter Miscellaneous Notes * Telephone Encounter - Shawna Coley OSA - 03/02/2024 2:56 PM EDT Called and left message to schedule MOHS surgery. * Telephone Encounter - Shawna Coley OSA - 03/01/2024 11:40 AM EDT Bush's disease of right ear documented in this encounter Plan of Treatment Upcoming Encounters Date Type Department Care Team (Late st Contact Info) Description 05/17/2024 2:20 PM EDT Office Visit Family Medicine [address] [place] [phone] Xavier Zavala MD [address] [place] [address] [place] [address] 05/17/2024 3:00 PM EDT Laboratory Laboratory [address] [place] [phone] [facility] [address] [place] [address] 06/01/2024 2:30 PM EST Cardiac Studies Cardiac Studies, [facility] [address] [place] [address] 06/13/2024 2:30 PM EST Office Visit Cardiology [address] [place] [address] Akshat Che PA-C [address] [place] [address] 03/05/2025 2:20 PM EDT Office Visit Dermatology [address] [place] [address] Lois Batisat PA-C [address] [place] [address] [place] [address] Scheduled Referrals Name Type Priority Associated Diagnoses Orde r Schedule MOHS SURGERY REFERRAL OP Referral Within 10 days (routine) Bush's disease of right ear Ordered: 03/01/2024 Health Maintenance Due Date Last Done Comments DTaP,Tdap,and Td Vaccines (1 - Tdap) 1959 Adult Wellness Visit 2008 Zoster Vaccines (2 of 3) 07/14/2012 05/19/2012 Depression Monitoring 01/21/2021 01/22/2020 *BISPHONATE OR OTHER ACCEPTABLE MEDICATION NEEDED FOR OSTEOPOROSIS (REFER TO SMARTSET #1146) 07/03/2022 COVID-19 Vaccine ( - season) 2023 CKD HGB USE SMARTSET 11673 06/30/202306/30, 11/04/2021, 07/30/2021, Additional history exists CKD PHOS USE SMARTSET 77639 06/30/202306/18, 08/25/2021, 09/12/2020, Additional history exists Influenza Vaccine (FLU shot) (#1) 2024 05/03/2023, [...] D LEVEL ONCE IN A LIFETIME-USE SMARTSET# 89705 Completed 06/30/2022, 08/25/2021, 01/16/2020, Additional history exists HPV (Gardasil) Vaccine Aged Out No lo nger eligible based on patient's age to complete this topic MENINGOCOCCAL (MENACTRA/MENVEO) Aged Out No longer eligible based on patient's age to complete this topic documented as of this encounter Medical Devices Not on filedocumented as of this encounter Visit Diagnoses Diagnosis Bush's disease of right ear- Primary documented in this encounter Care Teams Landing Man Relationship Specialty Start Date End Date Xavier Zavala MD [address] [place] [address] [place] [address] PCP - General Family Medicine 04/28/21 documented as of this encounter
--- OUTSIDE RECORDS SUMMARY | 2024-07-22 02:18 | External Medical Summary | Summary of Care ---
Author Name Unknown Organization [facility] Address [address] [facility] [place] [address] Phone [phone] Care Team Providers Care Desk Pens Assembler Name Role Phone Xavier Zavala MD Primary Care Provide r Reason for Referral * Evaluate & Treat - Unlimited Visits (Within 10 days (routine)) - Authorized Specialty Diagnoses / Procedures Referred By Gurwinder vincent Referred To Contact Dermatology Diagnoses Bush's disease of right ear Lois Batista PA-C [address] [place] [address] [place] [address] Referral ID Status Reason Start Date Expiration Date Visits Requested Visits Authorized [id number] Authorized Specialty Services Required 03/01/[phone] [...] Contact Info) Description 03/01/2024 Telephone Dermatology Jackie [address] [place] [address] Lois Batista PA-C [address] [place] [address] [place] [address] Appointment Allergies Active Allergy Reactions Criticality Noted [...] as of this encounter (statuses as of 03/01/2024) Medications Medication Sig Dispensed Refills Start Date [...] persistent asthma without complication 2.5 mg NEBULIZER [id number] 07/22/2018 Active documented as of this encounter (statuses as of 03/01/2024) Active Problems Problem Noted Date Diagnosed Date [...] as of this encounter (statuses as of 03/01/2024) Resolved Problems Problem Noted Date Diagnosed Date [...] as of this encounter (statuses as of 03/01/2024) Immunizations Name Administration Dates Next Due Hepatitis [...] 2:20 PM EDT Office Visit Family Medicine [address] [place] [phone] Xavier Zavala MD [address] [place] [address] [place] [address] 05/17/2024 3:00 PM EDT Laboratory Laboratory [address] [place] [phone] [facility] [address] [place] [address] 06/01/2024 2:30 PM EST Cardiac Studies Cardiac Studies, [facility] [address] [place] [address] 06/13/2024 2:30 PM EST Office Visit Cardiology [address] [place] [address] Akshat Che PATreyC [address] [place] [address] 03/05/2025 2:20 PM EDT Office Visit Dermatology [address] [place] [address] Lois Batista PA-C [address] [place] [address] [place] [address] Scheduled Referrals Name Type Priority Associated Diagnoses [...] - season) 2023 CKD HGB USE SMARTSET 89615 06/30/202306/30, 11/04/2021, 07/30/2021, Additional history exists CKD PHOS USE SMARTSET 27533 06/30/202306/18, 08/25/2021, 09/12/2020, Additional history exists Influenza [...] D LEVEL ONCE IN A LIFETIME-USE SMARTSET# 74778 Completed 06/30/2022, 08/25/2021, 01/16/2020, Additional history exists [...] Primary documented in this encounter Care Teams Desk Pens Assembler Relationship Specialty Start Date End Date Xavier Zavala MD [address] [place] [address] [place] [address] PCP - General Family Medicine 04/28/21 documented as of this encounter
--- OUTSIDE RECORDS SUMMARY | 2024-07-22 02:18 | External Medical Summary | Summary of Care ---
Author Name Unknown Organization [facility] Address [address] [place] [address] Phone [phone] Care Team Providers Care Chargemaster Analyst Name Role Phone Xavier Zavala MD Primary Care Provide r Encounter Details Date Type Department Care Team (Latest Contact Info) Description 02/28/2024 3:23 PM EDT - 02/28/2024 11:59 PM EDT Hospital Encounter Radiology Film File [address] [place] [address] Arrived Discharge Disposition: Home - Self Care Allergies Active Allergy Reactions Criticality Noted Date [...] as of this encounter (statuses as of 02/29/2024) Medications Medication Sig Dispensed Refills Start Date [...] persistent asthma without complication 2.5 mg NEBULIZER [id number] 07/22/2018 Active documented as of this encounter (statuses as of 02/29/2024) Active Problems Problem Noted Date Diagnosed Date Chronic hypoxemic respiratory failure 10/20/2023 Hypertensive heart [...] as of this encounter (statuses as of 02/29/2024) Resolved Problems Problem Noted Date Diagnosed Date [...] as of this encounter (statuses as of 02/29/2024) Immunizations Name Administration Dates Next Due Hepatitis [...] 2:20 PM EDT Office Visit Family Medicine [address] [place] [phone] Xavier Zavala MD [address] [place] [address] [place] [address] 05/17/2024 3:00 PM EDT Laboratory Laboratory [address] [place] [phone] [place] [address] 06/01/2024 2:30 PM EST Cardiac Studies Cardiac Studies, [address] [place] [address] 06/13/2024 2:30 PM EST Office Visit Cardiology [address] [place] [address] Akshat Che PA-C [address] [place] [address] 03/05/2025 2:20 PM EDT Office Visit Dermatology [address] [place] [address] Lois Batista PA-C [address] [place] [address] [place] [address] Health Maintenance Due Date Last Done Comments DTaP,Tdap,and Td Vaccines (1 - Tdap) 1959 Adult Wellness Visit 2008 Zoster Vaccines (2 of 3) 07/14/2012 05/19/2012 Depression Monitoring 01/21/2021 01/22/2020 *BISPHONATE OR OTHER ACCEPTABLE MEDICATION NEEDED FOR OSTEOPOROSIS (REFER TO SMARTSET #1146) 07/03/2022 COVID-19 Vaccine ( - 2022- season) 2023 CKD HGB USE SMARTSET 37941 06/30/202306/30, 11/04/2021, 07/30/2021, Additional history exists CKD PHOS USE SMARTSET 62133 06/30/202306/18, 08/25/2021, 09/12/2020, Additional history exists Influenza [...] D LEVEL ONCE IN A LIFETIME-USE SMARTSET# 17876 Completed 06/30/2022, 08/25/2021, 01/16/2020, Additional history exists HPV (Gardasil) Vaccine Aged Out No lo nger eligible based on patient's age to complete this topic MENINGOCOCCAL (MENACTRA/MENVEO) Aged Out No longer eligible based on patient's age to complete this topic documented as of this encounter Medical Devices Not on filedocumented as of this encounter Procedures Procedure Name Priority Date/Time Associated Diagnosis Comments DERM EXAM - DERM (IMAGES ONLY, NO REPORT) Routine 02/28/2024 3:23 PM EDT Neoplasm of uncertain behavior of skin Seborrheic keratosis Lentigines documented in this encounter Results * DERM EXAM - DERM (IMAGES ONLY, NO REPORT) (02/28/2024 3:23 PM EDT) Narrative Scheduling, Silent - 02/28/2024 3:23 PM EDT This is an imaging study not interpreted or resulted by a [facility] or [facility] contracted radiologist. Lois Batista PA-C RADIOLOGY (RAD GENERAL) documented in this encounter Care Teams Chargemaster Analyst Relationship Specialty Start Date End Date Xavier Zavala MD [address] [place] [address] [place] [address] PCP - General Family Medicine 04/28/21 documented as of this encounter
--- OUTSIDE RECORDS SUMMARY | 2024-07-22 02:18 | External Medical Summary | Summary of Care ---
Author Name Unknown Organization [facility] Address [address] [facility] [place] [address] Phone [phone] Care Team Providers Care Roller Inspector And Mender Name Role Phone Xavier Zavala MD Primary Care Provide r Reason for Referral * Evaluate & Treat - Unlimited Visits (Within 10 days (routine)) - Authorized Specialty Diagnoses / Procedures Referred By Gurwinder vincent Referred To Contact Dermatology Diagnoses Bush's disease of right ear Lois Batista PA-C [address] [place] [address] [place] [id number] Referral ID Status Reason Start Date Expiration Date Visits Requested Visits Authorized [id number] Authorized Specialty Services Required 03/01/2024 999 [id number] Question Answer Referral Priority Within 10 days (routine) Where should this appointment be scheduled? [facility] Are you referring the patient for Mohs Surgery and have a current positive skin cancer biopsy result? Yes Type of Procedure MOHS Surgery Comments Liliebth on R ear, friable lesion- Mohs over Efudex cream Reason for Visit * Reason Onset Date Comments Appointment 03/01/2024 Encounter Details Date Type Department Care Team (Late st Contact Info) Description 03/01/2024 Telephone Dermatology Jackie Jos[address] [place] [address] Lois Batista PA-C [address] [place] [address] [place] [address] Appointment Allergies Active Allergy Reactions Criticality Noted [...] persistent asthma without complication 2.5 mg NEBULIZER [id number] 07/22/2018 Active documented as of this encounter [...] PM EDT Office Visit Family Medicine [address] [place] [phone] Xavier Zavala MD [address] [place] [address] [place] [address] 05/17/2024 3:00 PM EDT Laboratory Laboratory [address] [place] [phone] [facility] Lab [address] [place] [address] 06/01/2024 2:30 PM EST Cardiac Studies [facility] [place] [address] 06/13/2024 2:30 PM EST Office Visit Cardiology [address] [place] [address] Akshat Che PA-C [address] [place] [address] 03/05/2025 2:20 PM EDT Office Visit Dermatology [address] [place] [address] Lois Batista PA-C [address] [place] [address] [place] [address] Scheduled Referrals Name Type Priority Associated Diagnoses [...] (REFER TO SMARTSET #1146) 07/03/2022 COVID-19 Vaccine (1 - season) 2023 CKD HGB USE SMARTSET 32850 06/30/202306/30, 11/04/2021, 07/30/2021, Additional history exists CKD PHOS USE SMARTSET 92112 06/30/202306/18, 08/25/2021, 09/12/2020, Additional history exists Influenza [...] D LEVEL ONCE IN A LIFETIME-USE SMARTSET# 95267 Completed 06/30/2022, 08/25/2021, 01/16/2020, Additional history exists [...] Primary documented in this encounter Care Teams Roller Inspector And Mender Relationship Specialty Start Date End Date Xavier Zavala MD [address] [place] [address] [place] [phone] PCP - General Family Medicine 04/28/21 documented as of this encounter
--- OUTSIDE RECORDS SUMMARY | 2024-07-22 02:18 | External Medical Summary | Summary of Care ---
Author Name Unknown Organization [facility] Address [address] [facility] [place] [address] Phone [phone] Care Team Providers Care [employer] Biology Teacher Name Role Phone Xavier Zavala MD Primary Care Provide r Reason for Visit * Reason Comments NEW PATIENT Referred for R ear s kin lesion x 3 years * Evaluate & Treat - Unlimited Visits (Within 10 days (routine)) - Authorized Specialty Diagnoses / Procedures Referred By Contac t Referred To Contact Dermatology Diagnoses Skin lesion Xavier Zavala MD [address] [place] [address] [place] [id number] Referral ID Status Reason Start Date Expiration Date Visits Requested Visits Authorized [id number] Authorized Specialty Services Required 10/20/[phone] Encounter Details Date Type Department Care Team (Late st Contact Info) Description 02/28/2024 3:00 PM EDT Office Visit Dermatology [address] [place] [address] Lois Batista PA-C [address] [place] [address] [place] [address] Neoplasm of uncertain behavior of skin*; Seborrheic keratosis; Lentigines Allergies Active Allergy Reactions Criticality Noted Date [...] persistent asthma without complication 2.5 mg NEBULIZER [id number] 07/22/2018 Active documented as of this encounter [...] on file documented as of this encounter Patient Instructions * Patient Instructions* Lois Batista PA-C - 02/28/2024 3:24 PM EDT WOUND CARE INSTRUCTIONS: If stitches placed: Remove stitches between 10-12 days, if not fallen out yet. Wiggle knot and if does not come loose, then snip stitch on 1 side of knot. CHANGE DRESSING ONCE DAILY 1. Wash hands and remove the original dressing(s) in 12-24 hours. 2. Gently clean wound(s) with soap and water. Rinse with water and pat the wound dry. 3. Apply a thin layer of Vaseline ointment with a Q-tip. 4. Cover with a bandage if area(s) is not on the face or scalp. A dressing is not required on the face or scalp. Use non-adherent dressing and paper tape if you are sensitive to band-aid adhesive sensitive. * Place dressing on site for 2 weeks, until healed. NOTE: Lower legs always take at least 1 monthto heal (can be more depending on other medical conditions). *If going swimming, please place waterproof bandage on top of wound site WHAT TO EXPECT AFTER BIOPSY or EXCISION: 1. Swelling and redness may occur around the wound for several days. If the procedure(s) was aroundthe eye, skin around the eyes is often quite swollen and discolored for several days. 2. Shave biopsy sites will have a yellow fibrous center and red rim surrounding it. 3. Drainage is to be expected. The drainage may be yellow-green and have a slight odor. As long as the wound itself is healing, you do not have to be concerned about the drainage. 4. If bleeding occurs, apply FIRM CONSTANT PRESSURE to the dressing with fingertips and a dry, clean wash cloth for 20 - 30 minutes. No peeking to see if bleeding has stopped. 5. If you have any concerns about the healing wound, please either or our main Dermatology office in [place] at [phone]. If an emergency, please go to your nearest Emergency Department. documented in this encounter Progress Notes * Deny Bradford MD - 02/29/2024 7:51 AM EDT I have seen and examined the patient via teledermatology review of chart note and photos with Lois Batista PA-C. I have reviewed and agree with the assessment and plan. * Lois Batista PA-C - 02/28/2024 3:09 PM EDT SUBJECTIVE: History of Present Illness: Kandi Spivey is a 83 year old female seen today for follow up of lesion. Previous appointment date: 11/30/2016 Last attempted treatments include: hx of GA Lesion on R ear, present for 3 years. Catches on comb, bleeds, bothersome to pt, desires removal. REVIEW OF SYSTEMS: SKIN: No other new or changing moles. HEME/LYMPH: No new or enlarging lumps or bumps. CONSTITUTIONAL: No nausea, vomiting, fevers, chills, diarrhea. No recent unintended weight loss, night sweats, appetite or malaise. RESP: negative MSK/EXT: Negative or as per HPI GI: negative CV: Negative or as per HPI Rest of systems are negative or as per HPI SKIN CANCER HX: NONE Reviewed, same day as visit, 0 [facility] Dermatology lab work(s)/pathology report(s) as well as those sent by referring provider prior to seeing pt. MEDICA TIONS: Current Outpatient Medications Medication Sig Dispense Refill VITAMIN C 500 MG PO TABS 1 tab daily (Patient not taking: Reported on 11/30/2023) ERGOCALCIFEROL 400 UNIT PO TABS 1 tab daily Melatonin 5 MG Tablet Daily at bedtime aspirin enteric coated 81 MG TBEC Take 1 Tablet by mouth in the morning. (Patient not taking: Reported on 11/30/2023) Lactobacillus (PROBIOTIC ACIDOPHILUS) TABS Take 1 Tab by mouth daily. home oxygen/equipment IN [place] Inhale 2 L by mouth at bedtime. Tylenol PM Extra Strength 500-25 MG Oral Tablet (diphenhydrAMINE-APAP (sleep)) Take 2 Tablets by mouth at bedtime. Albuterol Sulfate HFA 108 (90 Base) MCG/ACT Inhalation Aerosol Solution INHALE TWO PUFFS BY MOUTH EVERY 4 HOURS NEEDED FOR SHORTNESS OF BREATH OR FOR WHEEZING (BULK) 18 g 5 Advair HFA 230-21 MCG/ACT Inhalation Aerosol (fluticasone-Salmeterol) Inhale 2 Puffs by mouth in the morning and 2 Puffs before bedtime. 36 g 2 Docusate Sodium 100 MG Oral Capsule (Colace) [...] WEDNESDAY, WEDNESDAY AND WEDNESDAY 40 Tablet 3 Zoster Vac Recomb Adjuvanted 50 MCG/0.5ML Intramuscular Suspension Reconstituted (Shingrix) Inject 0.5 mL into a large muscle now and repeat dose in 60 to 180 days (Patient not taking: Reported on 11/30/2023) 1 Each 1 predniSONE 5 MG Oral Tablet (Deltasone) TAKE ONE TABLET BY MOUTH IN THE MORNING 90 Tablet 3 Vitron-C 65-125 MG Oral Tablet (Iron-Vitamin C 65-125 mg per tab) TAKE 1 TABLET BY MOUTH ON WEDNESDAY,WEDNESDAY AND WEDNESDAY 45 Tablet 3 Metoprolol Tartrate 25 MG Oral Tablet (Lopressor) TAKE 1/2 TABLET BY MOUTH TWICE DAILY 90 Tablet 1 amLODIPine Besylate 5 MG Oral Tablet (Norvasc) TAKE ONE TABLET BY MOUTH IN THE MORNING 90 Tablet 1 DULoxetine HCl 30 MG Oral Capsule Delayed Release Particles (Cymbalta) TAKE ONE CAPSULE BY MOUTH INTHE MORNING 90 Capsule 1 Levothyroxine Sodium 150 MCG Oral Tablet (Levoxyl) TAKE ONE TABLET BY MOUTH IN THE MORNING 90 Tablet 1 Montelukast Sodium 10 MG Oral Tablet (Singulair) TAKE ONE TABLET BY MOUTH AT BEDTIME 90 Tablet 1 Restasis 0.05 % Ophthalmic Emulsion Macular Health Formula Oral Capsule Take 3 Capsules by mouth every morning. Pregabalin 100 MG Oral Capsule (Lyrica) TAKE ONE CAPSULE BY MOUTH IN THE MORNING AND TWO CAPSULES in the evening 270 Capsule 0 Lisinopril 20 MG Oral Tablet (Prinivil) TAKE ONE TABLET BY MOUTH IN THE MORNING 90 Tablet 3 Furosemide 20 MG Oral Tablet (Lasix) TAKE ONE TABLET BY MOUTH IN THE MORNING 90 Tablet 3 Omeprazole 40 MG Oral Capsule Delayed Release (PriLOSEC) TAKE ONE CAPSULE BY MOUTH EVERY DAY 90 Capsule 1 Current Facility-Administered Medications Medication Dose Route Frequency Provider Last Rate Last Admin albuterol sulfate (PROVENTIL) (2.5 MG/3ML) 0.083% inhalation solution 2.5 mg 2.5 mg Nebulizer Resp Q4H [place] CRNP 2.5 mg at 09/13/18 1414 ALLERG IES: Actonel [bisphosphonates], Aminoquinolines, Iodinated contrast media, Dilaudid [hydromorphone hcl], Gabapentin, Imuran [azathioprine sodium], Methotrexate, Minocycline hcl, Norvasc [calcium channel blockers], Nsaids, and Parathyroid hormone (recomb) OBJECT ANTOINE: GEN: alert, no distress, appears oriented, pleasant, and cooperative, ambulates with walker. SKIN: Detailed exam of face including lids and lips, neck, chest, back, and bilateral upper ext. (arm, hand, fingers) completed: 1A. R mid helix of ear-1.0x0.7cm friable scabbed plaque. 2. Chest/back-Few sharply defined, variegated brown, waxy flat papules with velvety to finely verrucous surfaces. 3. Face/chest/back-Few well defined light to medium brown homogenous stellate macules. ASSESS MENT/PLAN: 1A. 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 The procedure, risks (to include but not limited to pain, bleeding, infection and scarring), benefits, alternatives and expected outcomes were discussed with the patient and verbal consent was obtained. Time out called. Patient identified, procedure verified, site identified and verified. Patient and staff present in agreement. Area prepped with alcohol and anesthetized using 1cc of 0.5% lidocaine with epinephrine at 1:200,000 concentration. Tangential biopsy of lesion performed. 20% AlCl and bandaging applied. Specimen sent to pathology. Patient instructed in routine post-op care and given wound care brochure. 2. Seborrheic/Benign Keratosis(-es) on chest/back-no tx needed, pt given reassurance and written education about diagnosis. 3. Lentigines on face/chest/back-No treatment needed, pt given reassurance. Skin cancer brochure given and ABCDE's discussed with patient. Annual full body skin examination (unless I recommended otherwise), self-examination, and sun protection (SPF 30+ daily to sun exposed areas, with reapplication every 1-2 hours when out in sun for long periods of time) advised and discussed. Recommended sooner follow up for new or changing lesions. These changes include rapid enlargement, changes in color or shape or symptoms, bleeding, or other concerns. The common features and behavior of non-melanoma skin cancers (e.g. BCC/SCC) as well as the ABCDEs and ugly duckling features of melanoma were also reviewed. Patient wuth daughter today. Photo(s) of #1-3 taken, pt verbally consented to having photo(s) taken. Follow-up: 1 year for full skin exam Contact patient at home Ok to leave results on message: Yes Able to speak to none Patient Phone Numbers Applicable photos (if any) and chart reviewed by Dr. Deny Bradford. Presumed diagnoses, expected natural histories, and management options discussed with the patient at length. Questions were addressed and anticipatory guidance provided. They were instructed to contact me if additional questions, concerns, or problems develop in the interim. -There were no barriers to learning and no other pain was related to today's visit. The patient and/or person accompanying patient demonstrates understanding of the visit and treatment. Lois Batista PA-C 02/28/2024 3:09 PM [facility] [address] [place] [address] (office) [phone] (fax) [facility]: [facility] [address] [place] [address] [phone] documented in this encounter Nursing Notes * Joan Cortez, NORTH - 02/28/2024 2:51 PM EDT Patient identified by full name and date of . Chief Complaint Patient presents with NEW PATIENT Referred for R ear skin lesion x 3 years documented in this encounter Plan of Treatment Upcoming Encounters Date Type Department Care Team (Late st Contact Info) Description 05/17/2024 2:20 PM EDT Office Visit Family Medicine [address] [place] [phone] Xavier Zavala MD [address] [place] [address] [place] [address] 05/17/2024 3:00 PM EDT Laboratory Laboratory [address] [place] [phone] [facility] [address] [place] [address] 06/01/2024 2:30 PM EST Cardiac Studies Cardiac Studies, [facility] [address] [place] [address] 06/13/2024 2:30 PM EST Office Visit Cardiology [address] [place] [address] Akshat Che PA-C [address] [place] [address] 03/05/2025 2:20 PM EDT Office Visit Dermatology [address] [place] [address] Lois Batista PA-C [address] [place] [address] [place] [address] Pending Results Name Type Priority Associated Diagnoses Date /Time SURGICAL PATHOLOGY Pathology Routine Neoplasm of uncertain behavior of skin 02/28/2024 3:24 PM EDT Health Maintenance Due Date Last Done Comments DTaP,Tdap,and Td Vaccines (1 - Tdap) 1959 Adult Wellness Visit 2008 Zoster Vaccines (2 of 3) 07/14/2012 05/19/2012 Depression Monitoring 01/21/2021 01/22/2020 *BISPHONATE OR OTHER ACCEPTABLE MEDICATION NEEDED FOR OSTEOPOROSIS (REFER TO SMARTSET #1146) 07/03/2022 COVID-19 Vaccine ( season) 2023 CKD HGB USE SMARTSET 41563 06/30/202306/30, 11/04/2021, 07/30/2021, Additional history exists CKD PHOS USE SMARTSET 35246 06/30/202306/18, 08/25/2021, 09/12/2020, Additional history exists Influenza [...] D LEVEL ONCE IN A LIFETIME-USE SMARTSET# 63655 Completed 06/30/2022, 08/25/2021, 01/16/2020, Additional history exists [...] interpreted or resulted by a [facility] or [employer] [facility] contracted radiologist. Lois Batista PA-C RADIOLOGY ([facility]) documented in this encounter Visit Diagnoses Diagnosis Neoplasm of uncertain behavior of skin- Primary Seborrheic keratosis Other seborrheic keratosis Lentigines Other dyschromia documented in this encounter Care Teams [employer] Biology Teacher Relationship Specialty Start Date End Date Xavier Zavala MD [address] [place] [address] [place] [address] PCP - General Family Medicine 04/28/21 documented as of this encounter
--- OUTSIDE RECORDS SUMMARY | 2024-07-22 02:18 | External Medical Summary | Summary of Care ---
Author Name Unknown Organization [facility] Address [address] [place] [address] Phone [phone] Care Team Providers Care Joiner Apprentice Name Role Phone Xavier Zavala MD Primary Care Provide r Reason for Visit * Reason Comments eRx-Medication Refill Encounter Details Date Type Department Care Team (Late st Contact Info) Description 03/10/2024 Refill Family Medicine [address] [phone] Xavier Zavala MD [address] [place], [place] [address] [phone] Small fiber neuropathy Allergies Active Allergy Reactions [...] as of this encounter (statuses as of 03/13/2024) Medications Medication Sig Dispensed Refills Start Date [...] AND WEDNESDAY 45 Tablet 3 4 Active Metoprolol Tartrate 25 MG Oral Tablet (Lopressor)Indicati ons:HTN, goal below 140/90 TAKE 1/2 TABLET BY MOUTH TWICE DAILY 90 Tablet 1 4 Active amLODIPine Besylate 5 MG Oral Tablet (Norvasc)Indication s:HTN, goal below 140/90 TAKE ONE TABLET BY MOUTH IN THE MORNING 90 Tablet 1 4 Active DULoxetine HCl [...] MOUTH AT BEDTIME 90 Tablet 1 4 Active Restasis 0.05 % Ophthalmic Emulsion [...] in the evening 270 Capsule 4 Active Pregabalin 100 MG Oral Capsule (Lyrica)Indications :Small fiber neuropathy TAKE ONE CAPSULE BY MOUTH IN THE MORNING AND TWO CAPSULES in the evening 270 Capsule 4 03/13/20 24 Discontinued Hospital, Clinic, or Other Facility Administered Medication Ordered Dose Route Frequency Start Date End Date Status albuterol sulfate (PROVENTIL) (2.5 MG/3ML) 0.083% inhalation solution 2.5 mgIndications:Moderate persistent asthma without complication 2.5 mg NEBULIZER [id number] 07/22/2018 Active documented as of this encounter (statuses as of 03/13/2024) Active Problems Problem Noted Date Diagnosed Date [...] as of this encounter (statuses as of 03/13/2024) Resolved Problems Problem Noted Date Diagnosed Date [...] as of this encounter (statuses as of 03/13/2024) Immunizations Name Administration Dates Next Due Hepatitis [...] Telephone Encounter - Xavier Zavala MD - 03/13/2024 7:58 AM EDT Signed Prescriptions: Disp Refills Pregabalin 100 MG Oral Capsule (Lyrica) 270 Ca*0 Sig: TAKE ONE CAPSULE BY MOUTH IN THE MORNING AND TWO CAPSULES in the evening Authorizing Provider: XAVIER ZAVALA * Telephone Encounter - Kimi Frost [facility] - 03/13/2024 5:27 AM EDT Pending Prescriptions: Disp Refills Pregabalin 100 MG Oral Capsule (Lyrica) 270 Ca*0 Sig: TAKE ONE CAPSULE BY MOUTH IN THE MORNING AND TWO CAPSULES in the evening * Telephone Encounter - Kimi Frost [facility] - 03/13/2024 5:26 AM EDT I have reviewed the patients controlled substance dispensing history in the Prescription Drug Monitoring Program in compliance with the [facility] regulations before prescribing a controlled substance. PDMP checked on 03/13/2024. Pending Prescriptions: Disp Refills Pregabalin 100 MG Oral Capsule (Lyrica) [*270 Ca*0 Sig: TAKE ONE CAPSULE BY MOUTH IN THE MORNING AND TWO CAPSULES in the evening Last Visit: 10/20/2023 (in office), Visit date not found (telemedicine) Next Visit: 05/17/2024 Date medication was last filled: 12/08 Date medication is due for refill: 03/08 [email or web address] [address] [place] Is this request for a controlled substance? Yes and Urine Drug Screen Not completed Toxicology results: No results found. However, due to the size of the patient record, not all encounters were searched.Please check Results Review for a complete set of results. Please approve if appropriate. Thank you, Kimi Frost, VladimirD. Clinical Pharmacist [facility] ([facility]) 03/13/2024, 5:26 AM documented in this encounter Plan of Treatment Upcoming Encounters Date Type Department Care Team (Late st Contact Info) Description 04/03/2024 10:00 AM EDT Office Visit [facility] Surgery [address] [address] Sweetie Gonzalez MD [address] [place] [address] 05/17/2024 2:20 PM EDT Office Visit Family Medicine [address] [place] [phone] Xavier Zavala MD [address] [place] [address] [place] [address] 05/17/2024 3:00 PM EDT Laboratory Laboratory [address] [place] [phone] [facility] [address] [place] [address] 06/01/2024 2:30 PM EST Cardiac Studies Cardiac Studies, [facility] [address] [place] [address] 06/13/2024 2:30 PM EST Office Visit Cardiology [address] [place] [address] Akshat Che PA-C [address] [place] [address] 03/05/2025 2:20 PM EDT Office Visit Dermatology [address] [place] [address] Lois Batista PA-C [address] [place] [address] [place] [address] Health Maintenance Due Date Last Done Comments DTaP,Tdap,and Td Vaccines (1 - Tdap) 1961 Adult Wellness Visit 2008 Zoster Vaccines (2 of 3) 07/14/2012 05/19/2012 Depression Monitoring 01/21/2021 01/22/2020 *BISPHONATE OR OTHER ACCEPTABLE MEDICATION NEEDED FOR OSTEOPOROSIS (REFER TO SMARTSET #1146) 07/03/2022 COVID-19 Vaccine ( - 2022- season) 2023 CKD HGB USE SMARTSET 97011 06/30/202306/30, 11/04/2021, 07/30/2021, Additional history exists CKD PHOS USE SMARTSET 77703 06/30/202306/18, 08/25/2021, 09/12/2020, Additional history exists Influenza [...] D LEVEL ONCE IN A LIFETIME-USE SMARTSET# 15773 Completed 06/30/2022, 08/25/2021, 01/16/2020, Additional history exists [...] neuropathy documented in this encounter Care Teams Joiner Apprentice Relationship Specialty Start Date End Date Xavier Zavala MD [address] [place] [address] [place] [phone] PCP - General Family Medicine 04/28/21 documented as of this encounter
--- OUTSIDE RECORDS SUMMARY | 2024-07-22 02:18 | External Medical Summary | Summary of Care ---
Author Name Unknown Organization [facility] Address [address] [facility] [place] [address] Phone [phone] Care Team Providers Care Ball Thread Machine Tender Name Role Phone Xavier Zavala MD Primary Care Provide r Reason for Visit * Reason Comments NEW PATIENT Referred for R ear s kin lesion x 3 years * Evaluate & Treat - Unlimited Visits (Within 10 days (routine)) - Authorized Specialty Diagnoses / Procedures Referred By Contac t Referred To Contact Dermatology Diagnoses Skin lesion Xavier Zavala MD [address] [place] [address] [place] [id number] Referral ID Status Reason Start Date Expiration Date Visits Requested Visits Authorized [id number] Authorized Specialty Services Required 10/20/2023 999 999 Encounter Details Date Type Department Care Team (Late st Contact Info) Description 02/28/2024 3:00 PM EDT Office Visit Dermatology [address] [place] [address] Lois Batista PA-C [address] [place] [address] [place] [phone] Neoplasm of uncertain behavior of skin*; Seborrheic [...] as of this encounter (statuses as of 02/28/2024) Medications Medication Sig Dispensed Refills Start Date [...] persistent asthma without complication 2.5 mg NEBULIZER [id number] 07/22/2018 Active documented as of this encounter (statuses as of 02/28/2024) Active Problems Problem Noted Date Diagnosed Date [...] as of this encounter (statuses as of 02/28/2024) Resolved Problems Problem Noted Date Diagnosed Date [...] as of this encounter (statuses as of 02/28/2024) Immunizations Name Administration Dates Next Due Hepatitis [...] either or our main Dermatology office in [place] at [phone]. If an emergency, please go to your nearest Emergency Department. documented in this encounter Progress Notes * Lois Batista PA-C - 02/28/2024 3:09 [...] as visit, 0 [facility] Dermatology lab work(s)/pathology report(s) as well as [...] Lois Batista PA-C 02/28/2024 3:09 PM REF: BI [address] [place] [address] (office) [phone] (fax) [facility] [address] [place] [address] [phone] documented in this encounter Nursing Notes * Joan Cortez LPN - 02/28/2024 2:51 PM EDT Patient identified by full name and date of . Chief Complaint Patient presents with NEW PATIENT Referred for R ear skin lesion x 3 years documented in this encounter Plan of Treatment Upcoming Encounters Date Type Department Care Team (Late st Contact Info) Description 05/17/2024 2:20 PM EDT Office Visit Family Medicine [address] [place] [phone] Xavier Zavala MD [address] [place] [address] [place] [address] 05/17/2024 3:00 PM EDT Laboratory Laboratory [address] [place] [phone] [facility] Lab [address] [place] [address] 06/01/2024 2:30 PM EST Cardiac Studies Cardiac Studies, [facility] [address] [place] [address] 06/13/2024 2:30 PM EST Office Visit Cardiology [address] [place] [address] Akshat Che PA-C [address] [place] [address] 03/05/2025 2:20 PM EDT Office Visit Dermatology [address] [place] [address] Lois Batista PA-C [address] [place] [address] [place] [address] Pending Results Name Type Priority Associated Diagnoses [...] SMARTSET #1146) 07/03/2022 COVID-19 Vaccine (1 - 2022-24 season) 2023 CKD HGB USE SMARTSET 62819 06/30/202306/30, 11/04/2021, 07/30/2021, Additional history exists CKD PHOS USE SMARTSET 84719 06/30/202306/18, 08/25/2021, 09/12/2020, Additional history exists Influenza [...] D LEVEL ONCE IN A LIFETIME-USE SMARTSET# 38365 Completed 06/30/2022, 08/25/2021, 01/16/2020, Additional history exists [...] study not interpreted or resulted by a [facility] or [facility] contracted radiologist. Lois Batista PA-C RADIOLOGY ([facility]) documented in this encounter Visit Diagnoses Diagnosis Neoplasm of uncertain behavior of skin- Primary Seborrheic keratosis Other seborrheic keratosis Lentigines Other dyschromia documented in this encounter Care Teams Ball Thread Machine Tender Relationship Specialty Start Date End Date Xavier Zavala MD [address] [place] [address] [place] [phone] PCP - General Family Medicine 04/28/21 documented as of this encounter
--- OUTSIDE RECORDS SUMMARY | 2024-07-22 02:18 | External Medical Summary | Summary of Care ---
Author Name Unknown Organization [facility] Address [address] [facility] [place] [address] Phone [phone] Care Team Providers Care Gold Miner Name Role Phone Xavier Zavala MD Primary Care Provide r Reason for Referral * Evaluate & Treat - Unlimited Visits (Within 10 days (routine)) - Authorized Specialty Diagnoses / Procedures Referred By Gurwinder vincent Referred To Contact Dermatology Diagnoses Bush's disease of right ear Lois Batista PA-C [address] [place] [address] [place] [address] Referral ID Status Reason Start Date Expiration Date Visits Requested Visits Authorized [id number] Authorized Specialty Services Required 03/01/2024 999 999 [...] Contact Info) Description 03/01/2024 Telephone Dermatology Jackie [address] [place] [address] Lois Batista PA-C [address] [place] [address] [place] [address] Appointment Allergies Active Allergy Reactions Criticality Noted [...] as of this encounter (statuses as of 03/06/2024) Medications Medication Sig Dispensed Refills Start Date [...] persistent asthma without complication 2.5 mg NEBULIZER [id number] 07/22/2018 Active documented as of this encounter (statuses as of 03/06/2024) Active Problems Problem Noted Date Diagnosed Date [...] as of this encounter (statuses as of 03/06/2024) Resolved Problems Problem Noted Date Diagnosed Date [...] as of this encounter (statuses as of 03/06/2024) Immunizations Name Administration Dates Next Due Hepatitis [...] Telephone Encounter - Shawna Coley OSA - 03/06/2024 10:17 AM EDT Called and spoke with pt. Offered her earlier appts in February. Stated she couldn't get a ride and that her daughter works. Took appt in March * Telephone Encounter - Shawna Coley OSA [...] 10:00 AM EDT Office Visit [facility] Jane [facility] [address] [place] [address] Sweetie Gonzalez MD [address] [place] [address] [place] [address] 05/17/2024 2:20 PM EDT Office Visit Family Medicine [address] [place] [phone] Xavier Zavala MD [address] [place] [address] [place] [address] 05/17/2024 3:00 PM EDT Laboratory Laboratory [address] [place] [id number] [address] [place] [address] 06/01/2024 2:30 PM EST Cardiac Studies Cardiac Studies, [facility] [address] [place] [address] 06/13/2024 2:30 PM EST Office Visit Cardiology [address] [place] [address] Akshat Che PA-C [address] [place] [address] 03/05/2025 2:20 PM EDT Office Visit Dermatology [address] [place] [address] Lois Batista PA-C [address] [place] [address] [place] [address] Scheduled Referrals Name Type Priority Associated Diagnoses [...] - season) 2023 CKD HGB USE SMARTSET 86160 06/30/202306/30, 11/04/2021, 07/30/2021, Additional history exists CKD PHOS USE SMARTSET 56071 06/30/202306/18, 08/25/2021, 09/12/2020, Additional history exists Influenza [...] D LEVEL ONCE IN A LIFETIME-USE SMARTSET# [id number] Completed 06/30/2022, 08/25/2021, 01/16/2020, Additional history exists [...] Primary documented in this encounter Care Teams Gold Miner Relationship Specialty Start Date End Date Xavier Zavala MD [address] [place] [address] [place] [address] PCP - General Family Medicine 04/28/21 documented as of this encounter
--- NOTE | 2024-07-22 02:19 | History & Physical Report ---
Date of Service July 22, 2024 Assessment & Plan (1) SOB (shortness of breath): Plan: 84-year-old female with past medical history significant for hypothyroidism, hyperlipidemia, chronic gout, chronic hypoxic respiratory failure, nocturnal hypoxemia, uses oxygen 2 L nightly, mild persistent asthma, hiatal hernia, hyperparathyroidism secondary renal disease, hypertension, hypertensive heart failure, ascending aortic enlargement, diverticulosis colon, morbid obesity, CKD stage III, primary osteoarthritis, pseudogout, interstitial granulomatous dermatitis, history of depression, history of DVT, spinal stenosis, ventral hernia without obstruction, who lives alone at home and ambulates with a walker with wheels was brought in because she was sleeping and seems short of breath at home. Patient says her daughter called around 3 PM when she was still in the bed and she got worried and patient was brought in here. Patient says last 1 week she has been sick. She was not feeling good. Earlier she was feeling short of breath.Was saturating 85% initially in ER. Currently denies any shortness of breath. Denies any cough. Denies any fevers. Denies chest pain. Denies headache. Denies dizziness. No runny nose or sore throat. Currently no abdominal pain. Normal bowel and bladder movements. Hemodynamics are okay currently. Shortness of breath Possible asthma exacerbation Rhinovirus Doppler precautions Short course of steroids Nebs [id number] and as needed Will follow repeat VBG Close monitor Obesity with hypoventilation Chronic hypoxia On oxygen nightly Moderate aortic valve stenosis(echo 07/11 ef 65%) Moderate to severe aortic insufficiency Severe calcification of the posterior mitral valve annulus with restricted posterior mitral valve leaflet mobility Severe LVH Monitor for volume overload Continue home Lasix Follow-up with cardiology History of diffuse arthritis Ankolysing spondylitis On prednisone 5 mg at home Currently on IV Solu-Medrol GERD On omeprazole Hypertension On lisinopril, metoprolol, Lasix and amlodipine Will monitor History of gout On allopurinol Hyperlipidemia On statin Depression On duloxetine Hypothyroidism On Synthyroid CKD stage III Creatinine 1.1 around baseline Follow labs DVT prophylaxis Heparin subcu Disposition Telemetry Full code. History of Present Illness Chief Complaint: Shortness of breath Primary Care Provider: Xavier Zavala MD 84-year-old female with past medical history significant for hypothyroidism, hyperlipidemia, chronic gout, chronic hypoxic respiratory failure, nocturnal hypoxemia, uses oxygen 2 L nightly, mild persistent asthma, hiatal hernia, hyperparathyroidism secondary renal disease, hypertension, hypertensive heart failure, ascending aortic enlargement, diverticulosis colon, morbid obesity, CKD stage III, primary osteoarthritis, pseudogout, interstitial granulomatous juan matitis, history of depression, history of DVT, spinal stenosis, ventral hernia without obstruction, who lives alone at home and ambulates with a walker with wheels was brought in because she was sleeping and seems short of breath at home. Patient says her daughter called around 3 PM when she was still in the bed and she got worried and patient was brought in here. Patient says last 1 week she has been sick. She was not feeling good. Earlier she was feeling short of breath.Was saturating 85% initially in ER. Currently denies any shortness of breath. Denies any cough. Denies any fevers. Denies chest pain. Denies headache. Denies dizziness. No runny nose or sore throat. Currently no abdominal pain. Normal bowel and bladder movements. Hemodynamics are okay currently. Past medical history. As mentioned above. Past surgical history. Left total knee arthroplasty. Bilateral carpal tunnel surgery. EGD. Exploration of abdomen. Ligation of oviducts. Cholecystectomy. Tonsillectomy and adenoidectomy. Total abdominal hysterectomy with removal of tubes. Social history. . Quit smoking 1970. Smoked 0.3 pack a day for 12 years. No alcohol use. No drug use. Family history. Brother had prostate cancer. Mother had bladder and lung cancer. CHF. Uncle had prostate cancer. Son has heart disease. Allergies Allergy/AdvReac Type Severity Reaction Status Date / Time azathioprine Allergy Intermediate HIVES Verified 03/27/23 13:47 gabapentin Allergy Intermediate hives Verified 03/27/23 13:47 hydroxychloroquine Allergy Intermediate HIVES Verified 03/27/23 13:47 ibuprofen Allergy Intermediate HIVES Verified 03/27/23 13:47 methotrexate Allergy Intermediate hives Verified 03/27/23 13:47 minocycline Allergy Intermediate Hives Verified 03/27/23 13:47 NSAIDS (Non-Steroidal Allergy Intermediate Hives Verified 03/27/23 13:47 Anti-Inflamma phenol Allergy Intermediate hives Verified 03/27/23 13:47 risedronate sodium Allergy Intermediate HIVES Verified 03/27/23 13:47 doxepin Allergy Mild HIVES Verified 03/27/23 13:47 leflunomide Allergy Mild HIVES Verified 03/27/23 13:47 sulfasalazine Allergy Mild HIVES Verified 03/27/23 13:47 Tetracyclines Allergy Mild HIVES Verified 03/27/23 13:47 hydromorphone AdvReac Intermediate hallucinate Verified 03/27/23 13:47 couldn't walk or talk teriparatide AdvReac Intermediate MALAISE, Verified 03/27/23 13:47 LOWER LEG EDEMA AMINOQUINOLINE Allergy Intermediate HIVES--PER Uncoded 03/27/23 13:47 GMG Home Medications Medication Instructions Recorded Confirmed Type albuterol sulfate 90 mcg/actuation 2 puff inhalation Q4 PRN Shortness 11/15/18 07/22/24 History aerosol inhaler (Ventolin HFA) Of Breath Or Wheezing duloxetine 30 mg capsule,delayed 30 mg PO QAM 11/15/18 07/22/24 History release melatonin 5 mg tablet 5 mg PO HS 11/15/18 07/22/24 History metoprolol tartrate 25 mg tablet 12.5 mg PO BID 11/15/18 07/22/24 History montelukast 10 mg tablet 10 mg PO HS 11/15/18 07/22/24 History (Singulair) pregabalin 100 mg capsule (Lyrica) See Rx Instructions .Route .COMPLEX 11/15/18 07/22/24 History allopurinol 100 mg tablet 200 mg PO QAM 03/21/22 07/22/24 History docusate sodium 100 mg capsule 100 mg PO BID 03/21/22 07/22/24 History iron,carbonyl 65 mg-vitamin C 125 1 tab PO 3XWK 03/21/22 07/22/24 History mg tablet,delayed release (Vitron-C) levothyroxine 150 mcg tablet 150 mcg PO DAILYBB 03/21/22 07/22/24 History lisinopril 20 mg tablet 20 mg PO QAM 03/21/22 07/22/24 History omeprazole 40 mg capsule,delayed 40 mg PO QAM 03/21/22 07/22/24 History release prednisone 5 mg tablet 5 mg PO QAM 03/21/22 07/22/24 History Oxygen Home #1 ea 03/28/22 07/22/24 Rx amlodipine 5 mg tablet 5 mg PO QAM 03/27/23 07/22/24 History ascorbic acid (vitamin C) 500 mg 500 mg PO QAM 03/27/23 07/22/24 History tablet (Vitamin C) atorvastatin 10 mg tablet 10 mg PO 3XWK 03/27/23 07/22/24 History sennosides 8.6 mg tablet (senna) 8.6 mg PO AMHS 03/27/23 07/22/24 History Lactobacillus acidophilus 250 2,000 mmu cells PO DAILY 07/22/24 07/22/24 History million cell capsule (Probiotic Acidophilus) diphenhydramine 25 2 tab PO HS 07/22/24 07/22/24 History mg-acetaminophen 500 mg tablet (Tylenol PM Extra Strength) fluticasone fur. 200 mcg-umeclid 1 ea inhalation QAM 07/22/24 07/22/24 History 62.5 mcg-vilant 25 mcg inhalat.powder (Trelegy Ellipta) furosemide 20 mg tablet (Lasix) 20 mg PO QAM 07/22/24 07/22/24 History bcjjhean-jsy-agdqvl 5 mg-zeaxanth 3 cap PO QAM 07/22/24 07/22/24 History 1 mg-bilberry 7.5 mg-herbal capsule (Macular Health Formula) Past Med/Surg History Problem List (Updated 07/22/24 @ 02:26 by Lincoln Larios MD) SOB (shortness of breath) ERIK (obstructive sleep apnea) Nocturnal hypoxia reason for oxygen Morbid obesity Hypothyroidism Hypertension Depression Generalized weakness CKD (chronic kidney disease), stage III (HFpEF) heart failure with preserved ejection fraction Contusion of leg, right (Acute) Hernia, ventral (Acute) Pulmonary edema Community acquired pneumonia Medical History Asthma Gout Spinal stenosis GERD (gastroesophageal reflux disease) Deep vein thrombosis 2011 after knee replacement--no longer on blood thinners Bilateral cataracts Anxiety Chronic obstructive pulmonary disease On home oxygen therapy 2L hs n/c Surgical History History of total abdominal hysterectomy and bilateral salpingo-oophorectomy History of bilateral tubal ligation Status post correction of deviated nasal septum History of carpal tunnel release of both wrists History of arthroscopy of left knee History of total left knee replacement (TKR) History of bowel resection History of cholecystectomy History of colonoscopy History of esophagogastroduodenoscopy (EGD) History of tooth extraction all teeth removed History of tonsillectomy Family History Other Hypertension No family history of adverse response to anesthesia Social History Smoking Status: Never smoker Second Hand Exposure: No; Do You Dip or Chew Tobacco: No; Hx Alcohol Use: No Hx Substance Use: No Preferred Language: Dominican Communication Ability: Effective 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 ENT- oropharynx clear Neck- supple, no JVD. Lungs- clear to auscultation, no wheezing or crackles. Heart- regular rhythm; no murmur, no gallop. Abdomen- normal bowel sounds, soft, nontender, no distension Extremities- no pretibial edema, no erythema seen Neuro- alert, oriented PERRL, no facial palsy; no dysarthria; moves extremities Results & Data Results & Data Vital Signs (Past 12 Hours) Vital Signs Temp Pulse Resp BP Pulse Ox O2 Del Method O2 Flow Rate 07/22/24 01:06 77 07/21/24 21:25 85 L Nasal Cannula 0 07/21/24 21:25 36.3 C L 70 20 170/85 H 85 L Room Air 07/21/24 21:17 69 Diagnostic Findings Laboratory Results WBC 6.71 K/ul (4.8-10.8) 07/21/24 21:11 RBC 4.51 M/uL (4.20-5.40) 07/21/24 21:11 Hgb 13.4 g/dl (12.0-16.0) 07/21/24 21:11 Hct 42.4 % (37.0-47.0) 07/21/24 21:11 MCV 94.0 fL (80.0-100.0) 07/21/24 21:11 MCH 29.7 pg (25.0-34.0) 07/21/24 21: MCHC 31.6 g/dL (32.0-36.0) L 07/21/24 21:11 RDW Std Deviation 52.7 fL (36.4-46.3) H 07/21/24 21:11 RDW Coeff of [place] 15.2 % (11.5-14.5) H 07/21/24 21:11 Plt Count 142 K/uL (130-400) 07/21/24 21: MPV 12.3 fL (9.4-12.4) 07/21/24 21:11 Immature Gran % (Auto) 0.7 % 07/21/24 21: Neut % (Auto) 73.1 % 07/21/24 21:11 Lymph % (Auto) 15.4 % 07/21/24 21:11 [place] % (Auto) 6.6 % 07/21/24 21:11 Eos % (Auto) 3.6 % 07/21/24 21:11 Baso % (Auto) 0.6 % 07/21/24 21: Neut # (Auto) 4.91 K/uL (1.40-6.50) 07/21/24 21: Lymph # (Auto) 1.03 K/uL (1.20-3.40) L 07/21/24 21:11 [place] # (Auto) 0.44 K/uL (0.11-0.59) 07/21/24 21: Eos # (Auto) 0.24 K/uL (0.00-0.50) 07/21/24 21:11 Baso # (Auto) 0.04 K/uL (0.00-0.20) 07/21/24 21:11 Immature Gran # (Auto) 0.05 K/uL (0.01-0.20) 07/21/24 21:11 PT 10.2 Seconds (9.0-12.0) 07/21/24 21: INR 0.9 (0.9-1.1) 07/21/24 21:11 APTT 26 Seconds (21-31) 07/21/24 21:11 PTT Ratio 1.0 07/21/24 21:11 VBG pH 7.32 (7.36-7.41) L 07/21/24 21:15 VBG pCO2 70 mmHg (38-50) H 07/21/24 21:15 VBG pO2 40 mmHg 07/21/24 21:15 VBG HCO3 36 mmol/L 07/21/24 21:15 VBG O2 Saturation 72.0 % 07/21/24 21:15 VBG Base Excess 7.4 mEq/L 07/21/24 21:15 Sodium 139 mmol/L (136-145) 07/21/24 21:11 Potassium 4.8 mmol/L (3.5-5.1) 07/21/24 21:11 Chloride 101 mmol/L (98-107) 07/21/24 21:11 Carbon Dioxide 35 mmol/L (21-32) H 07/21/24 21:11 Anion Gap 3 (3-11) 07/21/24 21:11 BUN 24 mg/dl (6-23) H 07/21/24 21:11 Creatinine 1.15 mg/dl (0.6-1.2) 07/21/24 21:11 Est Cr Clr Drug Dosing 49.5 ml/min 07/21/24 21:11 eGFR 47.56 07/21/24 21:11 BUN/Creatinine Ratio 20.9 (10-20) H 07/21/24 21:11 Glucose 109 mg/dl (70-99(Fasting)) H 07/21/24 21:11 Calcium 9.5 mg/dl (8.6-10.3) 07/21/24 21:11 Magnesium 1.9 mg/dl (1.7-2.4) 07/21/24 21:11 Total Bilirubin 0.6 mg/dl (0.2-1.0) 07/21/24 21:11 AST 13 U/L (13-39) 07/21/24 21:11 ALT 8 U/L (7-52) 07/21/24 21:11 Alkaline Phosphatase 70 U/L (34-104) 07/21/24 21:11 Troponin I High Sens 21.5 pg/ml (0-14) H 07/21/24 23:20 B-Natriuretic Peptide 113 pg/ml (0-100) H 07/21/24 21:11 Total Protein 6.9 gm/dl (6.0-8.3) 07/21/24 21:11 Albumin 4.0 gm/dl (3.4-5.0) 07/21/24 21:11 Globulin 2.9 gm/dl (2.5-4.0) 07/21/24 21:11 Albumin/Globulin Ratio 1.4 (0.9-2) 07/21/24 21:11 Procalcitonin < 0.02 ng/ml (0-0.5) 07/21/24 21:15 Adenovirus (PCR) Not Detected (NotDetected) 07/21/24 21:45 B. pertussis DNA (PCR) Not Detected (NotDetected) 07/21/24 21:45 B.parapertussis DNA PCR Not Detected (NotDetected) 07/21/24 21:45 C. pneumoniae DNA (PCR) Not Detected (NotDetected) 07/21/24 21:45 Coronavirus OC43 (PCR) Not Detected (NotDetected) 07/21/24 21:45 Coronavirus HKU1 (PCR) Not Detected (NotDetected) 07/21/24 21:45 Coronavirus 229E (PCR) Not Detected (NotDetected) 07/21/24 21:45 SARS-CoV-2 (PCR) Not Detected (NotDetected) 07/21/24 21:45 Coronavirus NL63 (PCR) Not Detected (NotDetected) 07/21/24 21:45 Human Metapneumovir PCR Not Detected (NotDetected) 07/21/24 21:45 Influenza Type A (PCR) Not Detected (NotDetected) 07/21/24 21:45 Influenza Type B (PCR) Not Detected (NotDetected) 07/21/24 21:45 M. pneumoniae (PCR) Not Detected (NotDetected) 07/21/24 21:45 Parainfluenza 1 (PCR) Not Detected (NotDetected) 07/21/24 21:45 Parainfluenza 2 (PCR) Not Detected (NotDetected) 07/21/24 21:45 Parainfluenza 3 (PCR) Not Detected (NotDetected) 07/21/24 21:45 Parainfluenza 4 (PCR) Not Detected (NotDetected) 07/21/24 21:45 RSV (PCR) Not Detected (NotDetected) 07/21/24 21:45 Entero/Rhino (PCR) DETECTED (NotDetected) A 07/21/24 21:45 Impressions Chest X-Ray 07/21/24 21:31 Exam(s): XR CXR 1 VIEW EXAM: XR Chest, 1 View CLINICAL HISTORY: Dyspnea. TECHNIQUE: Frontal view of the chest. COMPARISON: Chest radiograph 03/27/2023 FINDINGS: Lungs: Bilateral airspace opacities may represent pulmonary edema and/or atypical infection. Pleural space: Small bilateral pleural effusions. No pneumothorax. Heart: Cardiomegaly. Mediastinum: Unremarkable. Normal mediastinal contour. Bones/joints: Degenerative changes of the spine are noted. No acute fracture. IMPRESSION: 1. Bilateral airspace opacities may represent pulmonary edema and/or atypical infection. 2. Cardiomegaly. 3. Small bilateral pleural effusions. Electronically signed by: Jenn Tucker MD 07/22/24 02:01 AM ECG Additional Comments: ECG. Sinus rhythm with first-degree AV block rate of 64. Right bundle branch block. QTc 458 Code Status & VTE Plan VTE Prophylaxis Plan VTE Prophylaxis will be ordered: Yes
[2024-07-22] MEDS ORDERED: NITROGLYCERIN SL 0.4 MG/TAB TAB SL PRN (03:33)
[2024-07-22] MEDS ORDERED: ALBUTEROL HFA 8 GM INHALER INH PRN (03:33)
[2024-07-22] MEDS ORDERED: POLYETHYLENE (MIRALAX) 17 GM PACK PO PRN (03:33)
[2024-07-22] MEDS: LEVALBUTEROL 1.25 MG/3 ML NEB NEB SCH (07:00)
--- NOTE | 2024-07-22 07:02 | CT Scan Report ---
EXAM: CT chest diagnostic wo con CLINICAL HISTORY: Shortness of breath. TECHNIQUE: Contiguous axial CT images of the chest were acquired without administration of intravenous contrast. Coronal and sagittal reconstructions were obtained. One of the following dose reduction techniques were utilized for this exam: Automated exposure control, adjustment of the mA and/or kV according to patient size, use of iterative reconstruction. COMPARISON: Previous studies dated 03/27/2023. FINDINGS: Lungs: Left lower lobe posterior segmental consolidation. could represent pneumonia. Or compression collapse as a pressure effect of the adjacent hernia. Bilateral posterior dependent atlectatic changes and pleural thickening. No pulmonary nodules or masses are identified. No evidence of interstitial lung disease or emphysema. No pleural effusion. Mediastinum: Moderate cardiomegaly. No mediastinal mass or abnormal lymphadenopathy. Hilar Structures: The hilar structures appear normal without enlargement or abnormality. Trachea and Main Bronchi: The trachea and main bronchi are patent without evidence of obstruction or abnormality. Chest Wall: The chest wall is unremarkable with no evidence of soft tissue or bony abnormalities. Upper Abdomen: A large hiatus hernia contains most of the stomach, part of the pancreas and splenic vessels. Bones: Visualized osseous structures are normal, with no evidence of fracture or lytic/sclerotic lesions. IMPRESSION: 1. Interval improvement of left upper lobe consolidation 2. Interval stable Left lower lobe posterior segmental consolidation. Could represent pneumonia. Or more likely, compression collapse as a pressure effect of the adjacent large hiatus hernia. 3. Stable moderate cardiomegaly. 4. Stable bilateral posterior dependent atlectatic changes and pleural thickening. 5. Stable large hiatus hernia containing most of the stomach, part of the pancreas, and splenic vessels. Electronically signed by Gregory Anthony 07-22-2024 07:01 AM
[2024-07-22 07:29] LABS: Base Excess VBG 7.7 mEq/L; HCO3 VBG 35 mmol/L; Oxygen Saturation VBG 92.9 %; PCO2 VBG 59 mmHg (38-50); PO2 VBG 62 mmHg; pH VBG 7.38 (7.36-7.41)
[2024-07-22 07:46] LABS: Basophils # (auto) 0.02 K/uL (0.00-0.20); Basophils % (auto) 0.4 %; Hematocrit (blood only) 42.2 % (37.0-47.0); Hemoglobin 13.6 g/dl (12.0-16.0); Immature Granulocytes # (auto) 0.04 K/uL (0.01-0.20); Immature Granulocytes % (auto) 0.7 %; Lymphocytes # (auto) 0.66 K/uL (1.20-3.40); Lymphocytes % (auto) 11.7 %; Mean Corpuscular Hemoglobin 29.8 pg (25.0-34.0); Mean Corpuscular Hgb Conc 32.2 g/dL (32.0-36.0); Mean Corpuscular Volume 92.5 fL (80.0-100.0); Mean Platelet Volume 12.2 fL (9.4-12.4); Monocytes # (auto) 0.05 K/uL (0.11-0.59); Monocytes % (auto) 0.9 %; Neutrophils # (auto) 4.86 K/uL (1.40-6.50); Neutrophils % (auto) 86.3 %; Platelet Count 145 K/uL (130-400); RDW Coefficient of Variation 14.9 % (11.5-14.5); RDW Standard Deviation 51.4 fL (36.4-46.3); Red Blood Count 4.56 M/uL (4.20-5.40); White Blood Count 5.63 K/ul (4.8-10.8)
[2024-07-22 08:05] LABS: BUN Creatinine Ratio 23.8 (10-20); Calcium 9.5 mg/dl (8.6-10.3); Creatinine Clr Calc Pharmacy 54.3 ml/min; Magnesium 1.9 mg/dl (1.7-2.4); Potassium 4.6 mmol/L (3.5-5.1)
[2024-07-22 08:24] LABS: Troponin I High Sensitivity 16.8 pg/ml (0-14)
[2024-07-22] MEDS: LEVOTHYROXINE SODIUM 150 MCG TABLET PO SCH (08:37)
[2024-07-22] MEDS ORDERED: methylPREDNISolone 125 MG/2 ML VIAL IV SCH (09:00)
[2024-07-22] MEDS ORDERED: NON-FORMULARY MEDICATION (Mv-Mn-Lutein-Zeax-Bilber-Hb277 [Macular Health Formula] 5-1-7.5 PO SCH (09:00)
[2024-07-22] MEDS: allopurinoL 100 MG TAB PO SCH (09:56)
[2024-07-22] MEDS: amLODIPine BESYLATE 5 MG TAB PO SCH (09:56)
[2024-07-22] MEDS: ASCORBIC ACID 500 MG TAB PO SCH (09:56)
[2024-07-22] MEDS: ADVANCED PROBIOTIC 625 MG CAPSULE PO SCH (09:56)
[2024-07-22] MEDS: FUROSEMIDE 20 MG TAB PO SCH (09:57)
[2024-07-22] MEDS: METOPROLOL TARTRATE 25 MG TAB PO SCH (09:57)
[2024-07-22] MEDS: DULoxetine HCL 30 MG CAP PO SCH (09:57)
[2024-07-22] MEDS: PANTOprazole 40 MG TAB PO SCH (09:59)
[2024-07-22] MEDS: lisinopril 20 MG TAB PO SCH (09:59)
[2024-07-22] MEDS: FLUTICASONE FUROATE 200MCG 14 PUFFS/INHALER INH SCH (10:01)
[2024-07-22] MEDS: UMECLIDINIUM/VILANTEROL 62.5/25MCG 7 PUFFS/INHALER INH SCH (10:02)
[2024-07-22] MEDS: SENNA 8.6 MG TAB PO SCH (10:13)
[2024-07-22] MEDS: DOCUSATE SODIUM 100 MG CAP PO SCH (10:13)
[2024-07-22] MEDS: PREGABALIN 100 MG CAP PO SCH (10:14)
[2024-07-22] MEDS: HEPARIN SOD 5,000 UNIT/0.5 ML VIAL SQ SCH (10:15)
--- NOTE | 2024-07-22 10:17 | Hospitalist Progress Note ---
Date of Service July 22, 2024 Assessment & Plan (1) Acute and chronic respiratory failure: Plan: This acute on chronic hypoxemic and hypercapnic respiratory failure is in fact multifactorial. I think the main issue, especially considering the fact the patient has some memory issues related to yesterday, I think that was because of the high dose of Lyrica that patient was on that probably caused some sedation and metabolic encephalopathy leading to hypoventilation and this resulted in hypercapnia which was evident on the VBG here. And additionally we found the patient was positive for rhinovirus and also had some wheezing on top of that with CT showing some evidence of left lower lobe pneumonia which I think that was another factor for this. Her pCO2 on admission was 70 which is now down to 59. She does seem to have an underlying obesity hypoventilation and/or obstructive sleep apnea but I am unaware of this has been diagnosed in the past. Overall I think her underlying borderline condition was overwhelmed by presence of rhinoviral infection and likely left lower lobe pneumonia and because the respiratory failure. I took her off oxygen and her oxygen saturation was at 88% on room air which apparently this is not how she is at baseline, I am awaiting to talk further to her daughter over the phone to get more information. Continue with oxygen supplementation, and the best guess is at this time is that this acute component may have been as a result of the new viral pneumonia. Patient definitely needs sleep study as an outpatient. (2) Acute metabolic encephalopathy: Plan: This is likely related to high dose of Lyrica, I have decreased it to 100 mg daily instead of 300 and she will discuss with daughter about the correct dosing. (3) Viral pneumonia: Plan: For the pneumonia, will continue with nebulizer treatment, will give Mucinex and encourage for incentive spirometry and more upright breathing, otherwise there is no hint for any underlying bacterial infection. (4) Asthma with exacerbation: Plan: This had some exacerbation initially but this has now resolved, patient received a dose of Solu-Medrol and so I feel part of the improvement is due to , I will start her on prednisone 40 mg daily starting today. (5) Chronic gout: Plan: Continue with home dose of allopurinol 200 mg daily (6) Hypertension, accelerated: Plan: Blood pressure was mostly elevated, I will give her another day on her home medications prior to making any adjustments. Continue with amlodipine 5 mg deep ly, lisinopril 20 mg daily, Lopressor 12.5 mg twice daily. (7) Hypothyroidism (acquired): Plan: Continue with Synthroid 150 mcg daily. (8) Morbid obesity: Plan: BMI is 50. (9) Hyperlipidemia: Plan: Continue with Lipitor 10 mg daily. Plan Continue observing her on current treatment, support with oxygen supplementation, bronchodilator treatment, monitor blood pressure, PT and OT evaluation tomorrow hopefully. Will reevaluate her fitness and stability for discharge tomorrow. Admission and Anticipated Discharge Date Admission Date: July 22, 2024 Subjective Patient is an 84-year-old female with history of hypothyroidism, hyperlipidemia, chronic gout, chronic hypoxemic respiratory failure on 3 L of oxygen at night with some degree of asthma, hypertension, CKD stage III who is morbidly obese as well, she denied having sleep apnea, she was brought to the hospital apparently because she was short of breath, the history that I received is that her daughter called paramedics because of patient's shortness of breath. Her oxygen saturation was low and apparently she had some wheezing, she was found to have rhinoviral infection, CT of the chest reviewed by myself and looking at the report showed left lower lobe consolidation. Patient was placed on nebulizer. Patient was seen and examined, at this time she is doing well, she had no recollection of what happened yesterday, I took her off oxygen and her oxygen saturation was at 88% which is not her usual to my knowledge of reviewing records. I tried to contact daughter and I left a message. Physical Exam Physical Exam: VITALS: Reviewed. WEIGHT/BMI reviewed. GEN: Appears well but I feel that there is an element of confusion at baseline CV: RRR, no m/r/g. LUNGS: CTAB, no w/r/c, some bibasilar crackles but otherwise no respiratory distress ABD:, Obese soft, NT/ND, NBS, no masses or organomegaly. : N/A SKIN: Warm, well perfused. No skin rashes or abnormal lesions. EXT: No clubbing, cyanosis, or edema. Results & Data Results & Data Vital Signs (Past 12 Hours) Vital Signs Temp Pulse Pulse Resp BP BP Pulse Ox 07/22/24 10:03 86 15 07/22/24 10:00 129/95 07/22/24 09:54 85 18 07/22/24 09:45 83 17 07/22/24 09:15 90 20 07/22/24 09:01 161/87 H 07/22/24 09:01 161/87 H 07/22/24 09:01 161/87 H 07/22/24 09:00 85 18 92 07/22/24 08:51 79 20 90 07/22/24 08:42 82 20 91 07/22/24 08:41 07/22/24 08:12 97 H 17 93 07/22/24 08:00 174/89 H 07/22/24 07:54 78 13 90 07/22/24 07:51 81 17 91 07/22/24 07:42 79 19 91 07/22/24 07:33 80 16 90 07/22/24 07:32 36.5 C 77 14 143/84 H 91 07/22/24 07:26 79 07/22/24 07:09 78 19 94 07/22/24 07:01 78 18 93 07/22/24 06:52 78 18 175/97 H 92 07/22/24 06:33 77 18 91 07/22/24 06:27 78 19 89 L 07/22/24 06:12 81 23 93 07/22/24 06:00 175/97 H 07/22/24 06:00 175/97 H 07/22/24 05:38 07/22/24 05:31 36.8 C 75 18 07/22/24 05:30 77 18 131/101 H 95 07/22/24 05:30 07/22/24 01:06 77 Pulse Ox O2 Del Method O2 Del Method O2 Flow Rate O2 Flow Rate 07/22/24 10:03 07/22/24 10:00 07/22/24 09:54 07/22/24 09:45 07/22/24 09:15 07/22/24 09:01 07/22/24 09:01 07/22/24 09:01 07/22/24 09:00 07/22/24 08:51 07/22/24 08:42 07/22/24 08:41 Nasal Cannula 4 07/22/24 08:12 07/22/24 08:00 07/22/24 07:54 07/22/24 07:51 07/22/24 07:42 07/22/24 07:33 07/22/24 07:32 Nasal Cannula 4 07/22/24 07:26 07/22/24 07:09 07/22/24 07:01 Nasal Cannula 5 07/22/24 06:52 Nasal Cannula 3 07/22/24 06:33 07/22/24 06:27 07/22/24 06:12 07/22/24 06:00 07/22/24 06:00 07/22/24 05:38 Nasal Cannula 3 07/22/24 05:31 07/22/24 05:30 Nasal Cannula 2 07/22/24 05:30 95 Nasal Cannula 2 07/22/24 01:06 Laboratory Results Laboratory Results - last 24 hr 07/21/24 07/21/24 07/21/24 21:11 21:15 21:45 WBC 6.71 RBC 4.51 Hgb 13.4 Hct 42.4 MCV 94.0 MCH 29.7 MCHC 31.6 L RDW Std Deviation 52.7 H RDW Coeff of Nury 15.2 H Plt Count 142 MPV 12.3 Immature Gran % (Auto) 0.7 Neut % (Auto) 73.1 Lymph % (Auto) 15.4 Lamar % (Auto) 6.6 Eos % (Auto) 3.6 Baso % (Auto) 0.6 Neut # (Auto) 4.91 Lymph # (Auto) 1.03 L Lamar # (Auto) 0.44 Eos # (Auto) 0.24 Baso # (Auto) 0.04 Immature Gran # (Auto) 0.05 PT 10.2 INR 0.9 APTT 26 PTT Ratio 1.0 VBG pH 7.32 L VBG pCO2 70 H VBG pO2 40 VBG HCO3 36 VBG O2 Saturation 72.0 VBG Base Excess 7.4 Sodium 139 Potassium 4.8 Chloride 101 Carbon Dioxide 35 H Anion Gap 3 BUN 24 H Creatinine 1.15 Est Cr Clr Drug Dosing 49.5 eGFR 47.56 BUN/Creatinine Ratio 20.9 H Glucose 109 H Calcium 9.5 Magnesium 1.9 Total Bilirubin 0.6 AST 13 ALT 8 Alkaline Phosphatase 70 Troponin I High Sens 24.0 H B-Natriuretic Peptide 113 H Total Protein 6.9 Albumin 4.0 Globulin 2.9 Albumin/Globulin Ratio 1.4 Procalcitonin < 0.02 Adenovirus (PCR) Not Detected B. pertussis DNA (PCR) Not Detected B.parapertussis DNA PCR Not Detected C. pneumoniae DNA (PCR) Not Detected Coronavirus OC43 (PCR) Not Detected Coronavirus HKU1 (PCR) Not Detected Coronavirus 229E (PCR) Not Detected SARS-CoV-2 (PCR) Not Detected Coronavirus NL63 (PCR) Not Detected Human Metapneumovir PCR Not Detected Influenza Type A (PCR) Not Detected Influenza Type B (PCR) Not Detected M. pneumoniae (PCR) Not Detected Parainfluenza 1 (PCR) Not Detected Parainfluenza 2 (PCR) Not Detected Parainfluenza 3 (PCR) Not Detected Parainfluenza 4 (PCR) Not Detected RSV (PCR) Not Detected Entero/Rhino (PCR) DETECTED A 07/21/24 07/22/24 07/22/24 23:20 07:10 07:21 WBC 5.63 RBC 4.56 Hgb 13.6 Hct 42.2 MCV 92.5 MCH 29.8 MCHC 32.2 RDW Std Deviation 51.4 H RDW Coeff of Nury 14.9 H Plt Count 145 MPV 12.2 Immature Gran % (Auto) 0.7 Neut % (Auto) 86.3 Lymph % (Auto) 11.7 Lamar % (Auto) 0.9 Eos % (Auto) 0.0 Baso % (Auto) 0.4 Neut # (Auto) 4.86 Lymph # (Auto) 0.66 L Lamar # (Auto) 0.05 L Eos # (Auto) 0.00 Baso # (Auto) 0.02 Immature Gran # (Auto) 0.04 PT INR APTT PTT Ratio VBG pH 7.38 VBG pCO2 59 H VBG pO2 62 VBG HCO3 35 VBG O2 Saturation 92.9 VBG Base Excess 7.7 Sodium 141 Potassium 4.6 Chloride 102 Carbon Dioxide 33 H Anion Gap 6 BUN 25 H Creatinine 1.05 Est Cr Clr Drug Dosing 54.3 eGFR 53.05 BUN/Creatinine Ratio 23.8 H Glucose 153 H Calcium 9.5 Magnesium 1.9 Total Bilirubin AST ALT Alkaline Phosphatase Troponin I High Sens 21.5 H 16.8 H D B-Natriuretic Peptide Total Protein Albumin Globulin Albumin/Globulin Ratio Procalcitonin Adenovirus (PCR) B. pertussis DNA (PCR) B.parapertussis DNA PCR C. pneumoniae DNA (PCR) Coronavirus OC43 (PCR) Coronavirus HKU1 (PCR) Coronavirus 229E (PCR) SARS-CoV-2 (PCR) Coronavirus NL63 (PCR) Human Metapneumovir PCR Influenza Type A (PCR) Influenza Type B (PCR) M. pneumoniae (PCR) Parainfluenza 1 (PCR) Parainfluenza 2 (PCR) Parainfluenza 3 (PCR) Parainfluenza 4 (PCR) RSV (PCR) Entero/Rhino (PCR) Diagnostic Findings Chest X-Ray 07/21/24 21:31 Exam(s): XR CXR 1 VIEW EXAM: XR Chest, 1 View CLINICAL HISTORY: Dyspnea. TECHNIQUE: Frontal view of the chest. COMPARISON: Chest radiograph 03/27/2023 FINDINGS: Lungs: Bilateral airspace opacities may represent pulmonary edema and/or atypical infection. Pleural space: Small bilateral pleural effusions. No pneumothorax. Heart: Cardiomegaly. Mediastinum: Unremarkable. Normal mediastinal contour. Bones/joints: Degenerative changes of the spine are noted. No acute fracture. IMPRESSION: 1. Bilateral airspace opacities may represent pulmonary edema and/or atypical infection. 2. Cardiomegaly. 3. Small bilateral pleural effusions. Electronically signed by: Jenn Tucker MD 07/22/24 02:[address] 07/22/24 03:33 EXAM: CT chest diagnostic wo con CLINICAL HISTORY: Shortness of breath. TECHNIQUE: Contiguous axial CT images of the chest were acquired without administration of intravenous contrast. Coronal and sagittal reconstructions were obtained. One of the following dose reduction techniques were utilized for this exam: Automated exposure control, adjustment of the mA and/or kV according to patient size, use of iterative reconstruction. COMPARISON: Previous studies dated 03/27/2023. FINDINGS: Lungs: Left lower lobe posterior segmental consolidation. could represent pneumonia. Or compression collapse as a pressure effect of the adjacent hernia. Bilateral posterior dependent atlectatic changes and pleural thickening. No pulmonary nodules or masses are identified. No evidence of interstitial lung disease or emphysema. No pleural effusion. Mediastinum: Moderate cardiomegaly. No mediastinal mass or abnormal lymphadenopathy. Hilar Structures: The hilar structures appear normal without enlargement or abnormality. Trachea and Main Bronchi: The trachea and main bronchi are patent without evidence of obstruction or abnormality. Chest Wall: The chest wall is unremarkable with no evidence of soft tissue or bony abnormalities. Upper Abdomen: A large hiatus hernia contains most of the stomach, part of the pancreas and splenic vessels. Bones: Visualized osseous structures are normal, with no evidence of fracture or lytic/sclerotic lesions. IMPRESSION: 1. Interval improvement of left upper lobe consolidation 2. Interval stable Left lower lobe posterior segmental consolidation. Could represent pneumonia. Or more likely, compression collapse as a pressure effect of the adjacent large hiatus hernia. 3. Stable moderate cardiomegaly. 4. Stable bilateral posterior dependent atlectatic changes and pleural thickening. 5. Stable large hiatus hernia containing most of the stomach, part of the pancreas, and splenic vessels. Electronically signed by Gregory Anthony 07-22-2024 07:01 AM Medications Administered Current Inpatient Medications Acetaminophen (Acetaminophen 325 Mg Tab) 650 mg PO Q6H PRN PRN Reason: Pain or Fever Stop: 08/21/24 03:32 Albuterol (Albuterol Hfa 8 Gm Inhaler) 2 puffs INH Q4H PRN PRN Reason: Shortness Of Breath Or Wheezin Stop: 08/21/24 03:32 Allopurinol (Allopurinol 100 Mg Tab) 200 mg PO QAM [facility] Stop: 08/21/24 08:59 Last Admin: 07/22/24 09:56 Dose: 200 mg Amlodipine Besylate (Amlodipine Besylate 5 Mg Tab) 5 mg PO QAM [facility] Stop: 08/21/24 08:59 Last Admin: 07/22/24 09:56 Dose: 5 mg Ascorbic Acid (Ascorbic Acid 500 Mg Tab) 500 mg PO QAM [facility] Stop: 08/21/24 08:59 Last Admin: 07/22/24 09:56 Dose: 500 mg Ascorbic Acid (Ascorbic Acid 500 Mg Tab) 250 mg PO MoWeFr@0900 [facility] Stop: 08/23/24 08:59 Atorvastatin Calcium (Atorvastatin 10 Mg Tab) 10 mg PO MoWeFr@0900 [facility] Stop: 08/23/24 08:59 Docusate Sodium (Docusate Sodium 100 Mg Cap) 100 mg PO BID [facility] Stop: 08/21/24 08:59 Duloxetine HCl (Duloxetine Hcl 30 Mg Cap) 30 mg PO QAM [facility] Stop: 08/21/24 08:59 Last Admin: 07/22/24 09:57 Dose: 30 mg Ferrous Sulfate (Ferrous Sulfate 325 Mg Tab) 325 mg PO MoWeFr@0900 [facility] Stop: 08/23/24 08:59 Fluticasone Furoate (Fluticasone Furoate 200mcg 14 Puffs/Inhaler) 1 puffs INH QAM [facility] Stop: 08/21/24 08:59 Last Admin: 07/22/24 10:01 Dose: 1 puffs Furosemide (Furosemide 20 Mg Tab) 20 mg PO QAM [facility] Stop: 08/21/24 08:59 Last Admin: 07/22/24 09:57 Dose: 20 mg Heparin Sodium (Porcine) (Heparin Sod 5,000 Unit/0.5 Ml Vial) 7,500 units SQ Q12 [facility] Stop: 08/21/24 08:59 Methylprednisolone 40 mg/ (Syringe) 0.64 mls @ 1.5 mls/min IV DAILY [facility] Stop: 08/21/24 08:59 Lactobacillus Acidophilus (Advanced Probiotic 625 Mg Capsule) 1,250 mg PO DAILY [facility] Stop: 08/21/24 08:59 Last Admin: 07/22/24 09:56 Dose: 1,250 mg Levalbuterol HCl (Levalbuterol 1.25 Mg/3 Ml Neb) 1.25 mg NEB QIDR [facility] Stop: 08/21/24 06:59 Last Admin: 07/22/24 07:00 Dose: 1.25 mg Levalbuterol HCl (Levalbuterol 1.25 Mg/3 Ml Neb) 1.25 mg NEB Q4H PRN PRN Reason: Shortness Of Breath Or Wheezing Stop: 08/21/24 03:32 Levothyroxine Sodium (Levothyroxine Sodium 150 Mcg Tablet) 150 mcg PO DAILYBB [facility] Stop: 08/21/24 06:29 Last Admin: 07/22/24 08:37 Dose: 150 mcg Lisinopril (Lisinopril 20 Mg Tab) 20 mg PO QAM [facility] Stop: 08/21/24 08:59 Last Admin: 07/22/24 09:59 Dose: 20 mg Melatonin (Melatonin 3 Mg Tab) 3 mg PO HS [facility] Stop: 08/21/24 20:59 Metoprolol Tartrate (Metoprolol Tartrate 25 Mg Tab) 12.5 mg PO BID [facility] Stop: 08/21/24 08:59 Last Admin: 07/22/24 09:57 Dose: 12.5 mg Montelukast Sodium (Montelukast Sodium 10 Mg Tablet) 10 mg PO HS [facility] Stop: 08/21/24 20:59 Nitroglycerin (Nitroglycerin Sl 0.4 Mg/Tab Tab) 0.4 mg SL Q5M PRN PRN Reason: Chest Pain Stop: 08/21/24 03:32 Pantoprazole Sodium (Pantoprazole 40 Mg Tab) 40 mg PO QAM [facility] Stop: 08/21/24 08:59 Last Admin: 07/22/24 09:59 Dose: 40 mg Polyethylene Glycol (Polyethylene (Miralax) 17 Gm Pack) 17 gm PO DAILY PRN PRN Reason: Constipation Stop: 08/21/24 03:32 Pregabalin (Pregabalin 100 Mg Cap) 100 mg PO QAM [facility] Stop: 08/21/24 08:59 Pregabalin (Pregabalin 100 Mg Cap) 200 mg PO PM [facility] Stop: 08/21/24 20:59 Sennosides (Senna 8.6 Mg Tab) 8.6 mg PO AMHS [facility] Stop: 08/21/24 08:59 Umeclidinium/Vilanterol (Umeclidinium/Vilanterol 62.5/25mcg 7 Puffs/Inhaler) 1 puffs INH QAM [facility] Stop: 08/21/24 08:59 Last Admin: 07/22/24 10:02 Dose: 1 puffs (1) Acute and chronic respiratory failure Respiratory failure complication: hypoxia and hypercapnia Qualified Code(s): J96.21 - Acute and chronic respiratory failure with hypoxia; J96.22 - Acute and chronic respiratory failure with hypercapnia (4) Asthma with exacerbation Asthma severity: mild Asthma persistence: persistent Qualified Code(s): J45.31 - Mild persistent asthma with (acute) exacerbation (5) Chronic gout Gout site: unspecified site 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
[2024-07-22] MEDS: predniSONE 20 MG TAB PO SCH (12:04)
[2024-07-22] MEDS: methylPREDNISolone 40 MG in SYRINGE 0 ML IV SCH (12:04)
[2024-07-22] MEDS ORDERED: PREGABALIN 100 MG CAP PO SCH (21:00)
[2024-07-22] MEDS: MONTELUKAST SODIUM 10 MG TABLET PO SCH (22:30)
[2024-07-22] MEDS: MELATONIN 3 MG TAB PO SCH (22:30)
[2024-07-23] MEDS: LEVALBUTEROL 1.25 MG/3 ML NEB NEB PRN (02:21)
[2024-07-23] MEDS: ACETAMINOPHEN 325 MG TAB PO PRN (04:24)
[2024-07-23 04:40] LABS: Appearance Urine Clear (Clear); Bacteria Urine Automated None Seen (None Seen); Bilirubin Urine Negative (Negative); Blood Urine Negative (Negative); Cast Urine Automated 0-2 /lpf (0-2); Color Urine Yellow; Epithelial Cell Urine Auto 0-2 /hpf (0-2); Glucose Urine UA Negative (Negative); Ketones Urine Negative (Negative); Leukocyte Esterase Urine Negative (Negative); Nitrite Urine Negative (Negative); Protein Urine 2+ (Negative); RBC Urine Automated 0-2 /hpf (0-2); Specific Gravity Urine 1.014 (1.000-1.030); Urobilinogen Urine Negative (Negative); WBC Urine Automated 0-5 /hpf (0-5)
[2024-07-23 06:33] LABS: Basophils # (auto) 0.01 K/uL (0.00-0.20); Basophils % (auto) 0.1 %; Hematocrit (blood only) 39.4 % (37.0-47.0); Hemoglobin 12.9 g/dl (12.0-16.0); Immature Granulocytes # (auto) 0.04 K/uL (0.01-0.20); Immature Granulocytes % (auto) 0.4 %; Lymphocytes # (auto) 0.79 K/uL (1.20-3.40); Lymphocytes % (auto) 8.6 %; Mean Corpuscular Hemoglobin 29.8 pg (25.0-34.0); Mean Corpuscular Hgb Conc 32.7 g/dL (32.0-36.0); Mean Platelet Volume 12.3 fL (9.4-12.4); Monocytes # (auto) 0.65 K/uL (0.11-0.59); Monocytes % (auto) 7.1 %; Neutrophils # (auto) 7.72 K/uL (1.40-6.50); Neutrophils % (auto) 83.8 %; Platelet Count 150 K/uL (130-400); RDW Coefficient of Variation 14.9 % (11.5-14.5); RDW Standard Deviation 50.3 fL (36.4-46.3); Red Blood Count 4.33 M/uL (4.20-5.40); White Blood Count 9.21 K/ul (4.8-10.8)
[2024-07-23 06:43] LABS: BUN Creatinine Ratio 28.1 (10-20); Calcium 9.7 mg/dl (8.6-10.3); Creatinine Clr Calc Pharmacy 47.1 ml/min; Potassium 4.4 mmol/L (3.5-5.1)
[2024-07-23] MEDS: lisinopril 20 MG TAB PO STA (10:51)
--- NOTE | 2024-07-23 12:00 | Discharge Summary ---
Discharge Summary Date of Service July 23, 2024 Principal Dx & Hospital Course #1 = Principal Diagnosis (1) Acute and chronic respiratory failure: (2) Acute metabolic encephalopathy: (3) Viral pneumonia: (4) Asthma with exacerbation: (5) Chronic gout: (6) Hypertension, accelerated: (7) Hypothyroidism (acquired): (8) Morbid obesity: (9) Hyperlipidemia: Notes For Next Care Provider Medication Changes From Visit Lisinopril was increased to 40 mg daily from 20 mg daily before Amlodipine was increased to 10 mg daily from 5 mg daily before Lyrica was reduced from 300 mg daily down to 100 mg daily. Patient will remain on 3 L of oxygen continuously Admission HPI Per Admitting Provider Patient is an 84-year-old female with history of hypothyroidism, hyperlipidemia, chronic gout, chronic hypoxemic respiratory failure on 3 L of oxygen at night with some degree of asthma, hypertension, CKD stage III who is morbidly obese as well, she denied having sleep apnea, she was brought to the hospital apparently because she was short of breath, the history that I received is that her daughter called paramedics because of patient's shortness of breath. Her oxygen saturation was low and apparently she had some wheezing, she was found to have rhinoviral infection, CT of the chest reviewed by myself and looking at the report showed left lower lobe consolidation. Patient was placed on nebulizer. Patient overall did well, patient was seen and examined today, her oxygen requirement remained the same however with resolution of wheezing and clearance of her cognitive cloudiness, I ordered to step oxygen testing during which she was found to be needing 3 L of oxygen to maintain saturation of 90% and above. Patient was seen and examined and then I discussed my findings with her daughter over the phone. At this time I recommend patient to remain on oxygen 3 L/min continuously with reevaluation probably in 1 to 2 weeks to see if she can be taken off oxygen during the daytime(patient always takes 3 L of oxygen at night) if this is the case retrospectively we can say that this was hypoxemia because of the viral pneumonia that she already has. If she remains oxygen dependent at that time then we can retrospectively think that this is probably because of undiagnosed ERIK/obesity hypoventilation and I have already recommended daughter to arrange for outpatient sleep study. I also spoke with daughter about my concern of patient taking her medications at right time and right dose, she and her sister will team up to augment her supervision. Otherwise I do not have any further recommendation, patient can be discharged home, I decided to increase her blood pressure medications as her blood pressure continue to be under control. Updated Medication List Medication Instructions Recorded Confirmed Type albuterol sulfate 90 mcg/actuation 2 puff inhalation Q4 PRN Shortness 11/15/18 07/22/24 History aerosol inhaler (Ventolin HFA) Of Breath Or Wheezing duloxetine 30 mg capsule,delayed 30 mg PO QAM 11/15/18 07/22/24 History release melatonin 5 mg tablet 5 mg PO HS 11/15/18 07/22/24 History metoprolol tartrate 25 mg tablet 12.5 mg PO BID 11/15/18 07/22/24 History montelukast 10 mg tablet 10 mg PO HS 11/15/18 07/22/24 History (Singulair) allopurinol 100 mg tablet 200 mg PO QAM 03/21/22 07/22/24 History docusate sodium 100 mg capsule 100 mg PO BID 03/21/22 07/22/24 History iron,carbonyl 65 mg-vitamin C 125 1 tab PO [id number] 03/21/22 07/22/24 History mg tablet,delayed release (Vitron-C) levothyroxine 150 mcg tablet 150 mcg PO DAILYBB 03/21/22 07/22/24 History omeprazole 40 mg capsule,delayed 40 mg PO QAM 03/21/22 07/22/24 History release prednisone 5 mg tablet 5 mg PO QAM 03/21/22 07/22/24 History Oxygen Home #1 ea 03/28/22 07/22/24 Rx ascorbic acid (vitamin C) 500 mg 500 mg PO QAM 03/27/23 07/22/24 History tablet (Vitamin C) atorvastatin 10 mg tablet 10 mg PO [id number] 03/27/23 07/22/24 History sennosides 8.6 mg tablet (senna) 8.6 mg PO AMHS 03/27/23 07/22/24 History Lactobacillus acidophilus 250 2,000 mmu cells PO DAILY 07/22/24 07/22/24 History million cell capsule (Probiotic Acidophilus) fluticasone fur. 200 mcg-umeclid 1 ea inhalation QAM 07/22/24 07/22/24 History 62.5 mcg-vilant 25 mcg inhalat.powder (Trelegy Ellipta) furosemide 20 mg tablet (Lasix) 20 mg PO QAM 07/22/24 07/22/24 History [id number] 5 mg-zeaxanth 3 cap PO QAM 07/22/24 07/22/24 History 1 mg-bilberry 7.5 mg-herbal capsule ([employer] Formula) amlodipine 10 mg tablet 10 mg PO DAILY #30 tabs 07/23/24 Rx lisinopril 40 mg tablet 40 mg PO DAILY #30 tabs 07/23/24 Rx pregabalin 100 mg capsule (Lyrica) 100 mg PO QAM 30 days #30 caps 07/23/24 Rx Hospital Stay Data Consultations 07/21/24 23:49 ED Decision to Admit Stat Diagnostic Imagining Performed 07/22/24 03:33 CT chest diagnostic wo con Urgent Pending Results Patient Have Any Pending Studies at Discharge: No Discharge Instructions Given to Patient (Per Discharging Provider) Patient needs to have some sort of supervision at home to make sure she takes all her medications on time Patient needs to have workup as outpatient for obstructive sleep apnea/obesity hypoventilation syndrome Patient is to wear oxygen at 3 L/min [id number] for now Total Time Total Time Spent Total Time Spent (In Minutes): More than 35-minute
[2024-07-23 12:11] VITALS: BP 169/79; RESP 18; TEMP 97.5; O2SAT 90
[2024-07-23 16:14] VITALS: PULSE 72
[2024-07-24] MEDS ORDERED: ATORVASTATIN 10 MG TAB PO SCH (09:00)
[2024-07-24] MEDS ORDERED: FERROUS SULFATE 325 MG TAB PO SCH (09:00)
[2024-07-24] MEDS ORDERED: ASCORBIC ACID 500 MG TAB PO SCH (09:00)
--- NOTE | 2024-07-24 09:03 | Electrocardiogram Report ---
Test Reason : Blood Pressure : */* mmHG Vent. 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
== END 2024-07-23 16:14 | disposition home or self-care (01) | DRG 189 ==
LOC: ED 21:01 → EDINP 07-22 02:10 → 2S 07-22 03:34

== ENCOUNTER 2024-11-06 08:17 | Inpatient (IN) ==
--- NOTE | 2024-11-06 08:33 | Emergency Department Note ---
Impression & Plan Acute on chronic respiratory failure with hypoxia and hypercapnia, Acute metabolic encephalopathy, Closed fracture of one or more phalanges of foot, Fall, Acute knee pain ED Provider Note NAME: RAFIA HAYES AGE: 84 SEX: F : 1940 ARRIVES VIA: Ambulance INFORMANT: Patient, daughter, nursing report ED PROVIDER(S): Rashad Hoang MD CHIEF COMPLAINT: Fall, knee pain MEDICAL DECISION MAKING: Patient presents due to concern for fall and hip pain. IV was established and blood work was obtained. The patient is on chronic oxygen but was noted to be hypoxic in the 70s was placed on nonrebreather. Patient was placed on end-tidal and a VBG was also obtained along with routine blood work chest x-ray as well as left knee and femur x-rays. Patient also with foot x-ray. Patient's blood work showed a normal white count with a hemoglobin of 9.5. Patient's hemoglobin is lower from baseline back in July. No reported dark stools or bloody stools. Platelet count is unremarkable. The patient's kidney function unremarkable. The patient's initial VBG with a pH of 7.19 with the pCO2 of 79. Patient was hypoxic as low as the high 70s. Did call to have the patient placed on BiPAP. The patient's initial kidney function to creatinine 2.1. Do believe the patient is volume down was ordered 500 IV fluid bolus. Calcium of 8.1. The patient was ordered 1 g for replacement. Patient's troponin is 35. Pro-Jevon not elevated BioFire is negative. Patient's plain films did show possible worsening CHF. Patient's plain films otherwise showed a proximal phalanx fracture of the left foot. Likely would benefit from a fracture boot however does not need to be placed at this time. Patient did have a repeat VBG that was ordered and I did speak with the on-call hospitalist service Tiffany Rosario PA-C the patient was admitted under Dr. Morrow. The patient's repeat VBG showed mild improvement in her hypercarbia. I did speak with the patient's daughter Nannette Carrera the patient is a full code. I was informed by respiratory that the patient was having periods of apnea given these concerns the decision was made to intubate the patient for airway protection. The patient was intubated without issue. Postintubation x-ray shows appropriate positioning of the ET tube. I did speak with the mission worker service Gurdeep Madden PA-C under Dr. Spangler. The patient was admitted to the intensive care unit under the care of mission worker and hospitalist service. Dr. Morrow also aware of the change. Critical Care: I have personally spent 135 minutes of critical care time in direct management of this patient. This includes bedside care, interpretation of diagnostic studies, and testing, discussion with consultants, patient, and family members, and other require inpatient management activities. This 135 minutes is in excess of all separately billable procedures. Procedures: Endotracheal Intubation performed by Dr. Hoang Indication, periodic apnea The patient was on 100% oxygen via BiPAP prior to the procedure. Suction, airway equipment, RSI drugs, respiratory equipment, and appropriate personnel were prepared prior to the initiation of the procedure. A time out was taken. After observing the clinical benefit of the medications, the airway was easily visualized utilizing a 3 Mac video laryngoscope. A 7.5 size ETT tube was placed atraumatically to 24 cm using standard technique. The cuff inflated without signs of malfunction. There were bilateral breath sounds, positive colormetric change, no gastric sounds, a good capnography waveform, and post procedure pulse oximetry was 100%. Post intubation sedation deferred to the inpatient service. There were no complications. Discussion w/ other healthcare providers: Tiffany Rosario PA-C [facility] inpatient service Dr. Morrow and patient service Gurdeep Madden PA-C with Dr. Spangler mission worker Prior /Outside records reviewed: I reviewed a prior discharge summary from Dr. Marshall. Known history of some degree of asthma hypertension CKD sleep apnea who presented with shortness of breath. Patient did require chronic oxygen therapy. Patient thought to potentially have undiagnosed ERIK Poos obesity hypoventilation. Differential diagnosis: Fracture, sprain, strain, subluxation, dislocation, contusion, ligamentous injury, neurovascular, as well as other etiologies were considered. Diagnostics, as interpreted by me: ECG:Sinus with first-degree AV block, rate of 71 with prolonged VT wide QRS right bundle branch block pattern. Cardiac monitoring: An order was placed for continuous cardiac monitoring. The monitor shows a rate of 72 with sinus rhythm. Patient was placed on pulse oximetry Medical decision rules: None Imaging studies: I informally interpreted the patient's chest x-ray shows cardiomegaly with formal report to follow. HPI: Patient presents due to concern for fall which occurred around 4 AM this morning. The patient reports that she got up to go use the bathroom and her knees gave out. The patient denies any head strike or LOC. Patient is not taking blood thinning medications. EMS did reportedly give the patient 1 mg of IV Ativan. Patient reportedly has intolerance to narcotics. The patient denies any head neck chest back or abdominal pains. Patient states that she is sensate in her lower extremities. Patient reportedly does wear 2 L of oxygen at all times. The patient did not take anything at home for her pain. Patient reportedly resides in an apartment in [place]. PAST MEDICAL HISTORY: See Below PAST SURGICAL HISTORY: See Below SOCIAL HISTORY: See Below HOME MEDICATIONS: See Below ALLERGIES: See Below VITALS: See Below PHYSICAL EXAMINATION: GENERAL: NAD, non-toxic. Nasal cannula in place. EYE EXAM: Normal conjunctiva. PERRL, no anisocoria and EOM's grossly intact w/o pain. OROPHARYNX: Dry mucus membranes, grossly normal dentition. NECK: Trachea midline, no stridor. Supple, no nuchal rigidity, no adenopathy, non-tender. No signs of meningismus. FROM of the neck with good chin to chest and neck extension. LUNGS: Clear to auscultation. Normal chest wall mechanics. HEART: NSR, no MRG. ABDOMEN: Abdomen soft, non-tender, no masses, no rebound or guarding. BACK: No CVA TTP. SKIN: No rashes and no bruising. UPPER EXTREMITIES: Upper extremities are grossly normal. LOWER EXTREMITIES: Bilateral lower extremity swelling proximal to the bilateral knees, left knee with associated ecchymosis and healed incisional scar, good pedal pulse in the left leg able to move all toes. Ecchymosis noted to the left great toe with mild TTP. No obvious deformity. Decreased range of motion left knee secondary to pain. NEURO EXAM: Intermittently awake and does follow commands dry, cranial nerves II-XII grossly intact, normal speech, moves all 4 extremities. Past Med/Surg History Problem List (Updated 11/06/24 @ 16:35 by Rashad Hoang MD) Acute knee pain (Acute) Fall (Acute) Closed fracture of one or more phalanges of foot (Acute) Acute metabolic encephalopathy (Acute) Acute on chronic respiratory failure with hypoxia and hypercapnia (Acute) Obesity hypoventilation syndrome Acute kidney injury superimposed on CKD Hypotension Recurrent falls Acute on chronic hypoxic respiratory failure Elevated troponin (Acute) Rhinovirus infection (Acute) Hypoxia (Acute) Acute metabolic encephalopathy Hyperlipidemia Viral pneumonia Hypothyroidism (acquired) Hypertension, accelerated Chronic gout Asthma with exacerbation Acute and chronic respiratory failure SOB (shortness of breath) (Acute) ERIK (obstructive sleep apnea) Nocturnal hypoxia reason for oxygen Morbid obesity Hypothyroidism Hypertension Depression Generalized weakness CKD (chronic kidney disease), stage III (HFpEF) heart failure with preserved ejection fraction Contusion of leg, right (Acute) Hernia, ventral (Acute) Pulmonary edema Community acquired pneumonia Medical History Asthma Gout Spinal stenosis GERD (gastroesophageal reflux disease) Deep vein thrombosis 2011 after knee replacement--no longer on blood thinners Bilateral cataracts Anxiety Chronic obstructive pulmonary disease On home oxygen therapy 2L hs n/c Surgical History History of total abdominal hysterectomy and bilateral salpingo-oophorectomy History of bilateral tubal ligation Status post correction of deviated nasal septum History of carpal tunnel release of both wrists History of arthroscopy of left knee History of total left knee replacement (TKR) History of bowel resection History of cholecystectomy History of colonoscopy History of esophagogastroduodenoscopy (EGD) History of tooth extraction all teeth removed History of tonsillectomy Family History Other Hypertension No family history of adverse response to anesthesia Social History Smoking Status: Unknown if ever smoked Second Hand Exposure: No; Do You Dip or Chew Tobacco: No; Hx Alcohol Use: No Hx Substance Use: No Preferred Language: Wolof Communication Ability: Effective Phonograph Needle Tip Maker Required: No Beliefs That Will Affect Care: None marital status: / Current Living Situation: Alone How many Children do You have: 5 Feels Safe at Home: Yes Assistive Devices: Oxygen - Continuous and Walker Allergies Allergies Allergy/AdvReac Type Severity Reaction Status Date / Time azathioprine Allergy Intermediate HIVES Verified 03/27/23 13:47 gabapentin Allergy Intermediate hives Verified 03/27/23 13:47 hydroxychloroquine Allergy Intermediate HIVES Verified 03/27/23 13:47 ibuprofen Allergy Intermediate HIVES Verified 03/27/23 13:47 methotrexate Allergy Intermediate hives Verified 03/27/23 13:47 minocycline Allergy Intermediate Hives Verified 03/27/23 13:47 NSAIDS (Non-Steroidal Allergy Intermediate Hives Verified 03/27/23 13:47 Anti-Inflamma phenol Allergy Intermediate hives Verified 03/27/23 13:47 risedronate sodium Allergy Intermediate HIVES Verified 03/27/23 13:47 doxepin Allergy Mild HIVES Verified 03/27/23 13:47 leflunomide Allergy Mild HIVES Verified 03/27/23 13:47 sulfasalazine Allergy Mild HIVES Verified 03/27/23 13:47 Tetracyclines Allergy Mild HIVES Verified 03/27/23 13:47 hydromorphone AdvReac Intermediate hallucinate Verified 03/27/23 13:47 couldn't walk or talk teriparatide AdvReac Intermediate MALAISE, Verified 03/27/23 13:47 LOWER LEG EDEMA AMINOQUINOLINE Allergy Intermediate HIVES--PER Uncoded 03/27/23 13:47 GMG Home Meds Home Medications Medication Instructions Recorded Confirmed albuterol sulfate 90 mcg/actuation 2 puff inhalation Q4 PRN Shortness 11/15/18 11/06/24 aerosol inhaler (Ventolin HFA) Of Breath Or Wheezing duloxetine 30 mg capsule,delayed 30 mg PO QAM 11/15/18 11/06/24 release melatonin 5 mg tablet 5 mg PO HS 11/15/18 11/06/24 metoprolol tartrate 25 mg tablet 12.5 mg PO BID 11/15/18 11/06/24 montelukast 10 mg tablet 10 mg PO HS 11/15/18 11/06/24 (Singulair) allopurinol 100 mg tablet 200 mg PO QAM 03/21/22 11/06/24 docusate sodium 100 mg capsule 100 mg PO BID 03/21/22 11/06/24 iron,carbonyl 65 mg-vitamin C 125 1 tab PO 3XWK 03/21/22 11/06/24 mg tablet,delayed release (Vitron-C) levothyroxine 150 mcg tablet 150 mcg PO DAILYBB 03/21/22 11/06/24 omeprazole 40 mg capsule,delayed 40 mg PO QAM 03/21/22 11/06/24 release prednisone 5 mg tablet 5 mg PO QAM 03/21/22 11/06/24 ascorbic acid (vitamin C) 500 mg 500 mg PO QAM 03/27/23 11/06/24 tablet (Vitamin C) atorvastatin 10 mg tablet 10 mg PO 3XWK 03/27/23 11/06/24 sennosides 8.6 mg tablet (senna) 8.6 mg PO AMHS 03/27/23 11/06/24 Lactobacillus acidophilus 250 2,000 mmu cells PO DAILY 07/22/24 11/06/24 million cell capsule (Probiotic Acidophilus) fluticasone fur. 200 mcg-umeclid 1 ea inhalation QA 07/22/24 11/06/24 62.5 mcg-vilant 25 mcg inhalat.powder (Trelegy Ellipta) furosemide 20 mg tablet (Lasix) 20 mg PO QAM 07/22/24 11/06/24 tzlwizsd-yfx-ouocpi 5 mg-zeaxanth 3 cap PO QAM 07/22/24 11/06/24 1 mg-bilberry 7.5 mg-herbal capsule (Macular Health Formula) pregabalin 100 mg capsule 100 mg PO BID 11/06/24 11/06/24 Previous Rx's Medication Instructions Recorded Oxygen Home #1 ea 03/28/22 amlodipine 10 mg tablet 10 mg PO DAILY #30 tabs 07/23/24 lisinopril 40 mg tablet 40 mg PO DAILY #30 tabs 07/23/24 Results & Data (ED) Vital Signs Vital Signs - 24 hr 11/06/24 08:25 11/06/24 08:30 11/06/24 08:30 Temperature 36.7 C Temperature Source Oral Pulse Rate 75 74 Pulse Rate [Left Finger] Respiratory Rate 20 Respiratory Effort / Characteristics Non-Labored Respiratory Depth Normal Blood Pressure 110/53 L Blood Pressure [Right Arm] Blood Pressure Mean 72 Blood Pressure Mean [Right Arm] Pulse Oximetry 80 L 90 Oxygen Delivery Method Nasal Cannula Nasal Cannula Oxygen Flow Rate 2 2 Fraction of Inspired Oxygen Sepsis Recent Fever Within 48 Hours No Sepsis New/Unexplained Change in Mental Status No Sepsis Action Taken by Nursing No Action Required End Tidal CO2 (18-54mmHg) 11/06/24 08:37 11/06/24 08:41 11/06/24 08:42 Temperature Temperature Source Pulse Rate Pulse Rate [Left Finger] 74 Respiratory Rate 20 Respiratory Effort / Characteristics Non-Labored Respiratory Depth Normal Blood Pressure Blood Pressure [Right Arm] 110/53 L Blood Pressure Mean Blood Pressure Mean [Right Arm] 72 Pulse Oximetry 94 92 98 Oxygen Delivery Method Nasal Cannula Non-rebreather Non-rebreather Oxygen Flow Rate 2 15 15 Fraction of Inspired Oxygen Sepsis Recent Fever Within 48 Hours Sepsis New/Unexplained Change in Mental Status Sepsis Action Taken by Nursing End Tidal CO2 (18-54mmHg) 11/06/24 08:59 11/06/24 10:04 11/06/24 10:08 Temperature Temperature Source Pulse Rate 75 Pulse Rate [Left Finger] 75 76 Respiratory Rate 20 20 13 Respiratory Effort / Characteristics Non-Labored Non-Labored Spontaneous Respiratory Depth Shallow Normal Blood Pressure Blood Pressure [Right Arm] 91/69 L Blood Pressure Mean Blood Pressure Mean [Right Arm] 76 Pulse Oximetry 95 94 95 Oxygen Delivery Method Non-rebreather Nasal Cannula Oxygen Flow Rate 10 4 Fraction of Inspired Oxygen 40 Sepsis Recent Fever Within 48 Hours Sepsis New/Unexplained Change in Mental Status Sepsis Action Taken by Nursing End Tidal CO2 (18-54mmHg) 40 Home Medications Current Medication List: was personally reviewed by me Laboratory Data Attestation: I reviewed the patient's lab results. 11/06/24 08:25 11/06/24 08:25 Lab Results 11/06/24 11/06/24 Range/Units 08:25 09:16 WBC 9.18 (4.8-10.8) K/ul RBC 3.11 L (4.20-5.40) M/uL Hgb 9.5 L (12.0-16.0) g/dl Hct 30.3 L (37.0-47.0) % MCV 97.4 (80.0-100.0) fL MCH 30.5 (25.0-34.0) pg MCHC 31.4 L (32.0-36.0) g/dL RDW Std Deviation 53.1 H (36.4-46.3) fL RDW Coeff of Nury 14.9 H (11.5-14.5) % Plt Count 152 (130-400) K/uL MPV 12.0 (9.4-12.4) fL Immature Gran % (Auto) 0.9 % Neut % (Auto) 63.4 % Lymph % (Auto) 17.3 % Parmer % (Auto) 12.2 % Eos % (Auto) 5.8 % Baso % (Auto) 0.4 % Neut # (Auto) 5.82 (1.40-6.50) K/uL Lymph # (Auto) 1.59 (1.20-3.40) K/uL Parmer # (Auto) 1.12 H (0.11-0.59) K/uL Eos # (Auto) 0.53 H (0.00-0.50) K/uL Baso # (Auto) 0.04 (0.00-0.20) K/uL Immature Gran # (Auto) 0.08 (0.01-0.20) K/uL PT 10.4 (9.0-12.0) Seconds INR 1.0 (0.9-1.1) VBG pH 7.19 L (7.36-7.41) VBG pCO2 79 H (38-50) mmHg VBG pO2 41 mmHg VBG HCO3 30 mmol/L VBG O2 Saturation 71.6 % VBG Base Excess -0.2 mEq/L Sodium 142 (136-145) mmol/L Potassium 4.2 (3.5-5.1) mmol/L Chloride 106 (98-107) mmol/L Carbon Dioxide 33 H (21-32) mmol/L Anion Gap 3 (3-11) BUN 40 H (6-23) mg/dl Creatinine 2.16 H (0.6-1.2) mg/dl Est Cr Clr Drug Dosing 27.2 ml/min eGFR 22.32 BUN/Creatinine Ratio 18.5 (10-20) Glucose 111 H (70-99(Fasting)) mg/dl Calcium 8.1 L (8.6-10.3) mg/dl Magnesium 1.9 (1.7-2.4) mg/dl Total Bilirubin 0.5 (0.2-1.0) mg/dl AST 12 L (13-39) U/L ALT 9 (7-52) U/L Alkaline Phosphatase 56 (34-104) U/L Total Protein 5.3 L (6.0-8.3) gm/dl Albumin 3.3 L (3.4-5.0) gm/dl Globulin 2.0 L (2.5-4.0) gm/dl Albumin/Globulin Ratio 1.7 (0.9-2) TSH 1.239 (0.300-4.500) uIu/ml Administered Medications Fentanyl Citrate (Fentanyl Citrate Pf 100 Mcg/2 Ml Vial) 50 mcg IV Q2H PRN PRN Reason: Moderate Pain (4,5,6) on NRS Stop: 11/20/24 13:49 Last Admin: 11/06/24 14:58 Dose: 50 mcg Documented By: MERRICK Fludrocortisone Acetate (Fludrocortisone Acetate 0.1 Mg Tab) 0.1 mg PO QAM DEBORAH Stop: 12/06/24 14:59 Last Admin: 11/06/24 15:54 Dose: 0.1 mg Documented By: MERRICK Sodium Chloride (Nss) 1,000 mls @ 50 mls/hr IV .Q20H DEBORAH Stop: 11/07/24 08:29 Last Admin: 11/06/24 14:09 Dose: 50 mls/hr Documented By: MERRICK Hydrocortisone Sodium (Succinate 50 mg/ Syringe) 1 mls @ 4 mls/min IV Q8H DEBORAH Stop: 12/06/24 14:59 Last Admin: 11/06/24 15:33 Dose: 4 mls/min Documented By: MERRICK Propofol (Diprivan) 1,000 mg in 100 mls @ 16.332 mls/hr IV .Q6H8M [facility]; Protocol Stop: 11/09/24 14:59 Last Admin: 11/06/24 15:38 Dose: 20 mcg/kg/min, 16.3 mls/hr Documented By: MERRICK Co-signed By: SHANDA Phenylephrine HCl (Phenylephrine/Nss) 25 mg in 250 mls @ 40.83 mls/hr IV .Q6H8M DEBORAH; Protocol Stop: 12/06/24 15:29 Last Admin: 11/06/24 15:42 Dose: 0.5 mcg/kg/min, 40.8 mls/hr Documented By: MERRICK Co-signed By: SHANDA Discontinued Medications Acetaminophen (Ofirmev) 1,000 mg in 100 mls @ 400 mls/hr IV NOW STA Stop: 11/06/24 08:54 Last Infusion: 11/06/24 09:29 Dose: Infused Documented By: Admin: 11/06/24 08:52 Dose: 400 mls/hr Documented By: LYNETTE Sodium Chloride (Nss) 500 mls @ 999 mls/hr IV .Q31M ONE Stop: 11/06/24 10:19 Last Infusion: 11/06/24 10:34 Dose: Infused Documented By: Admin: 11/06/24 10:04 Dose: 999 mls/hr Documented By: LYNETTE Calcium Gluconate () 1,000 mg in 60 mls @ 240 mls/hr IV NOW STA Stop: 11/06/24 10:04 Last Infusion: 11/06/24 10:34 Dose: Infused Documented By: Admin: 11/06/24 10:17 Dose: 240 mls/hr Documented By: LYNETTE Piperacillin Sod/Tazobactam Sod (Zosyn) 4.5 gm in 100 mls @ 25 mls/hr IV NOW STA; Protocol Stop: 11/06/24 16:06 Last Infusion: 11/06/24 14:59 Dose: Infused Documented By: Admin: 11/06/24 14:04 Dose: 25 mls/hr Documented By: MERRICK Pantoprazole Sodium (Protonix) 40 mg in 10 mls @ 5 mls/min IV NOW ONE Stop: 11/06/24 12:32 Last Admin: 11/06/24 15:00 Dose: 5 mls/min Documented By: MERRICK Vancomycin HCl 2,500 mg/ (Sodium Chloride) 550 mls @ 180 mls/hr IV NOW ONE Stop: 11/06/24 16:48 Last Infusion: 11/06/24 15:21 Dose: Infused Documented By: Admin: 11/06/24 14:03 Dose: 180 mls/hr Documented By: MERRICK Parenteral Electrolytes (Plasma-Lyte A Ph 7.4) 1,000 mls @ 999 mls/hr IV .Q1H1M ONE Stop: 11/06/24 16:24 Last Admin: 11/06/24 15:38 Dose: 999 mls/hr Documented By: MERRICK Midazolam HCl (Midazolam Hcl 1 Mg/Ml 2ml Vial) 2 mg IV Q2H PRN PRN Reason: RASS goal -1 Stop: 12/06/24 13:49 Last Admin: 11/06/24 14:12 Dose: 2 mg Documented By: KJL Miscellaneous (Rapid Sequence Induction Bag) Confirm Administered Dose 1 each N/A .STK-MED ONE Stop: 11/06/24 12:43 Last Admin: 11/06/24 13:54 Dose: Not Given Documented By: CHILANGO Rocuronium [place] (Rocuronium [place] 10 Mg/Ml 5 Ml Vial) 125 mg IV NOW STA Stop: 11/06/24 12:28 Last Admin: 11/06/24 12:55 Dose: 100 mg Documented By: CHILANGO Co-signed By: ES Imaging Data Radiologist's Impression: Chest X-Ray 11/06/24 08:40 XR chest 1V portable CLINICAL HISTORY: weakness COMPARISON STUDY: 07/21/2024 FINDINGS: There is stable prominent cardiomegaly with increased pulmonary vascular congestion. There is increased opacity at the left lung base with obscuration of the left hemidiaphragm. Stable mild stranding at the right lung base. No pneumothorax. IMPRESSION: 1. Increased CHF. 2. Increased opacity at the left lung base could represent pneumonia, atelectasis, or pleural effusion. ACT 112: Negative or not required by law. Electronically signed by: Jonathan Rogers M.D. 11/06/2024 9:34 AM Femur X-Ray 11/06/24 08:40 XR femur LT 2V routine, XR knee LT 1 or 2V routine CLINICAL HISTORY: knee pain COMPARISON: None FINDINGS: Evaluation of the left hip is limited by habitus and technical factors. No fracture or dislocation seen at the left femur or the left knee. Left knee prosthesis shows no hardware complication. IMPRESSION: No fracture seen. ACT 112: Negative or not required by law. Electronically signed by: Jonathan Rogers M.D. 11/06/2024 9:31 AM Foot X-Ray 11/06/24 08:40 XR foot RT min 3V routine CLINICAL HISTORY: bruisin to great toe COMPARISON: None FINDINGS: There is an acute intra-articular mildly comminuted mildly displaced fracture proximally at the first proximal phalanx. There is mild cortical step- off and gap at the proximal articular surface of the first proximal phalanx. No other fracture or dislocation seen of the left foot. There are chronic soft tissue calcifications plantar to the calcaneus. IMPRESSION: Acute fracture first proximal phalanx. ACT 112: Negative or not required by law. Electronically signed by: Jonathan Rogers M.D. 11/06/2024 9:33 AM Knee X-Ray 11/06/24 08:40 XR femur LT 2V routine, XR knee LT 1 or 2V routine CLINICAL HISTORY: knee pain COMPARISON: None FINDINGS: Evaluation of the left hip is limited by habitus and technical factors. No fracture or dislocation seen at the left femur or the left knee. Left knee prosthesis shows no hardware complication. IMPRESSION: No fracture seen. ACT 112: Negative or not required by law. Electronically signed by: Jonathan Rogers M.D. 11/06/2024 9:31 AM Discharge Plan Visit Data Chief Complaint: Fall Stated Complaint: FALL, KNEE INJURY ED Provider: Rashad Hoang Discharge Problem: Acute on chronic respiratory failure with hypoxia and hypercapnia, Acute metabolic encephalopathy, Closed fracture of one or more phalanges of foot, Fall, Acute knee pain Patient Disposition: Admitted As Inpatient Discharge Instructions Interventions: ED Discharge Assessment Last Done: 11/06/24 13:45 Discharge Problem: Closed fracture of one or more phalanges of foot Qualifiers: Encounter type: initial encounter Toe: great toe Phalanx: proximal Fracture alignment: displaced Laterality: left Qualified Code(s): S92.412A - Displaced fracture of proximal phalanx of left great toe, initial encounter for closed fracture Fall Qualifiers: Encounter type: initial encounter Qualified Code(s): W19.XXXA - Unspecified fall, initial encounter Acute knee pain Qualifiers: Laterality: left Qualified Code(s): M25.562 - Pain in left knee
[2024-11-06] MEDS: ACETAMINOPHEN 1,000 MG/100 ML VIAL IV STA (08:52)
--- OUTSIDE RECORDS SUMMARY | 2024-11-06 08:55 | External Medical Summary ---
Author Name Unknown Address Unknown Organization K01:[facility] [address] [place] [address] Laboratory Report Ordering Provider Test Date Status ALEJANDRA VAZQUEZRUBIN 10/31/2024 16:31:07 Tania l Observation Date Value Abnormality Reference (Units ) Status Phosphate 10/31/2024 16:31:07 2.9 2.5-4.8 (m g/dL) Final Performing Location [facility] - [address] [place] [address]
--- OUTSIDE RECORDS SUMMARY | 2024-11-06 08:55 | External Medical Summary ---
Author Name Unknown Address Unknown Organization K01:[facility] [place] [facility] [place] [address] [place] [address] Laboratory Report Ordering Provider Test Date Status ALEJANDRA VAZQUEZRUBIN 10/31/2024 16:31:07 Tania l Observation Date Value Abnormality Reference (Units ) Status TSH 10/31/2024 16:31:07 1.54 0.27-4.20 (uIU/mL) Final Performing Location [facility] - [address] [place] [address]
--- OUTSIDE RECORDS SUMMARY | 2024-11-06 08:55 | External Medical Summary ---
Author Name Unknown Address Unknown Organization K01:[facility] [place] [address] [place] [address] Laboratory Report Ordering Provider Test Date Status BI VAZQUEZ 10/31/2024 16:31:07 Tania l Normal: <30 mg/g creatinine< br/>High: 30-300 mg/g creatinine
Very High: >300 mg/g creatinine
Nephrotic: >2200 mg/g creatinine Observation Date Value Abnormality Reference (Units ) Status Albumin, Urine 10/31/2024 16:31:07 20.07 (mg/dL) Final Creatinine, Urine 10/31/2024 16:31:07 183 (mg/dL) Final Albumin/Creatinine [Mass Ratio] in Urine 10/31/2024 16:31:07 110 Above high normal <30 (mg/g Creat) Final Performing Location [facility] [place] - [address] [place] [id number]
--- OUTSIDE RECORDS SUMMARY | 2024-11-06 08:55 | External Medical Summary ---
Author Name Unknown Address Unknown Organization [id number]:[facility] [place] [address] [place] [address] Laboratory Report Ordering Provider Test Date Status LESA HERNANDEZ 10/31/2024 16:31:07 Final Observation Date Value Abnormality Reference (Units ) Status Vitamin B12 10/31/2024 16:31:07 [phone] (pg/mL) Final Performing Location LAB[facility]ATORY [facility] - [address] [place] [address]
--- OUTSIDE RECORDS SUMMARY | 2024-11-06 08:55 | External Medical Summary ---
Author Name Unknown Address Unknown Organization [id number]:LAB[facility]ATORY [facility] [place] - [address] [facility] [address] [place] [address] Laboratory Report Ordering Provider Test Date Status BI VAZQUEZ 10/31/2024 16:31:07 Tania l Observation Date Value Abnormality Reference (Units ) Status WBC, Total 10/31/2024 16:31:07 7.35 4.00-10.80 (K/uL) Final RBC 10/31/2024 16:31:07 4.00 3.85-5.15 (M/uL) Final Hemoglobin 10/31/2024 16:31:07 12.1 12.0-15.3 (g/dL) Final HCT 10/31/2024 16:31:07 39.9 36.0-45.2 (%) Final MCV 10/31/2024 16:31:07 99.8 81.5-97.5 (fL) Final MCH 10/31/2024 16:31:07 30.3 27.0-34.0 (pg) Final MCHC 10/31/2024 16:31:07 30.3 32.0-36.0 (g/dL) Final RDW 10/31/2024 16:31:07 14.2 11.5-15.5 (%) Final Platelets 10/31/2024 16:31:07 168 140-400 (K/uL) Final MPV 10/31/2024 16:31:07 12.2 6.6-11.1 (fL) Final Nucleated erythrocytes/100 leukocytes [Ratio] in Blood by Automated count 10/31/2024 16:31:07 0 <=0 (/100 WBCs) Final Performing Location LABORATORY [facility] [place] - [address] [place] [address]
--- OUTSIDE RECORDS SUMMARY | 2024-11-06 08:55 | External Medical Summary ---
Author Name Unknown Address Unknown Organization K01:LABORATORY [facility] - [address] [place] [address] Laboratory Report Ordering Provider Test Date Status LESA HERNANDEZ 10/31/2024 16:31:07 Final Observation Date Value Abnormality Reference (Units ) Status Magnesium 10/31/2024 16:31:07 2.0 1.5-2.6 (m g/dL) Final Performing Location [facility] - [address] [place] [address]
--- OUTSIDE RECORDS SUMMARY | 2024-11-06 08:55 | External Medical Summary ---
Author Name Unknown Address Unknown Organization K01:[facility] [place] [address] [place] [address] Laboratory Report Ordering Provider Test Date Status BI VAZQUEZ 10/31/2024 16:31:07 Tania l Observation Date Value Abnormality Reference (Units ) Status BUN 10/31/2024 16:31:07 18 6-20 (mg/dL) Final Creatinine 10/31/2024 16:31:07 1.2 Above high normal 0.5-1.0 (mg/dL) Final Glomerular filtration rate/1.73 sq M.predicted [Volume Rate/Area] in Serum, Plasma or Blood by Creatinine-based formula (CKD-EPI) 10/31/2024 16:31:07 45 Below low normal >=60 (mL/min) Final eGFR is calculated based on the CKD-EPI 2020 equation. Sodium 10/31/2024 16:31:07 144 135-146 (m mol/L) Final Potassium 10/31/2024 16:31:07 4.5 3.5-5.1 (m mol/L) Final Cl 10/31/2024 16:31:07 100 98-107 (mm ol/L) Final CO2 10/31/2024 16:31:07 33 Above high normal 22 -32 (mmol/L) Final Anion gap 10/31/2024 16:31:07 11 7-15 (mmol /L) Final Glucose 10/31/2024 16:31:07 106 70-120 (mg /dL) Final Albumin 10/31/2024 16:31:07 4.4 3.8-5.0 (g /dL) Final AST (Aspartate aminotransferase) 10/31/2024 16:31:07 17 10-35 (U/L) Fin al Alk Phos 10/31/2024 16:31:07 82 35-130 (U/ L) Final Bilirubin, Total 10/31/2024 16:31:07 0.6 <=1 .2 (mg/dL) Final Calcium 10/31/2024 16:31:07 9.7 8.4-10.2 ( mg/dL) Final Protein 10/31/2024 16:31:07 6.7 6.0-8.3 (g /dL) Final ALT (Alanine aminotransferase) 10/31/2024 16:31:07 15 10-35 (U/L) Jeff shah Performing Location [facility] [place] [address] [facility] [address]
--- OUTSIDE RECORDS SUMMARY | 2024-11-06 08:56 | External Medical Summary | Summary of Care ---
Author Name Unknown Organization [facility] Address [address] [facility] [address] Phone [phone] Care Team Providers Care Threader Operator Name Role Phone Taylor Zavala MD Primary Care Provide r Reason for Visit * Reason Comments eRx-Medication Refill Encounter Details Date Type Department Care Team (Late st Contact Info) Description 10/19/2024 Refill Family Medicine [address] [place] [phone] Taylor Zavala MD [address] [place] [address] [place] [address] Acquired hypothyroidism; HTN, goal below 140/90; Spinal stenosis of lumbar region, unspecified whether neurogenic claudication present; Recurrent major depressive disorder, in partial remission (HCC); Arthritis of knee Allergies Active Allergy Reactions Criticality Noted Date [...] as of this encounter (statuses as of 10/24/2024) Medications home oxygen/equipment IN GAS Inhale 3 L [...] Patient taking differently:100 mg OralPRN, Reported on 09/06/2024 Senna 8.6 MG Oral CapsuleIndication s:Constipation, unspecified constipation type,Abdominal pain, generalized Take 8.6 mg by mouth in the morning and 8.6 mg before bedtime. 180 Capsule 1 023 Active Vitron-C 65-125 MG Oral Tablet (Iron-Vitamin C 65-125 mg per tab)Indications:I aster deficiency anemia, unspecified iron deficiency anemia type TAKE 1 TABLET BY MOUTH ON WEDNESDAY, WEDNESDAY AND WEDNESDAY 45 Tablet 3 024 Active Restasis 0.05 % Ophthalmic Emulsion 024 Active Macular Health Formula Oral Capsule Take 3 Capsules by mouth every morning. Active Furosemide 20 MG Oral Tablet (Lasix)Indication s:Acute heart failure with preserved ejection fraction (HCC) TAKE ONE TABLET BY MOUTH IN THE MORNING 90 Tablet 3 024 Active Omeprazole 40 MG Oral Capsule Delayed Release (PriLOSEC)Indicat ions:Abdominal pain, generalized TAKE ONE CAPSULE IN THE MORNING 90 Capsule 1 024 Active Vitamin C 500 MG Oral Tablet (Ascorbic Acid) Take 1 Tablet by mouth in the morning. Active Pregabalin 100 MG Oral Capsule (Lyrica) Take 1 Capsule by mouth every evening. 025 Active Allopurinol 100 MG Oral Tablet (Zyloprim)Indicat ions:Chronic gout due to renal impairment of multiple sites without tophus TAKE TWO TABLETS IN THE MORNING 180 Tablet 025 Active amLODIPine Besylate 10 MG Oral Tablet (Norvasc)Indicati ons:(HFpEF) heart failure with preserved ejection fraction (HCC),Hypertensiv e heart failure (HCC) Take 1 Tablet by mouth in the morning. 90 Tablet 1 025 Active Lisinopril 40 MG Oral TabletIndications :Hypertensive heart failure (HCC) Take 1 Tablet by mouth in the morning. 90 Tablet 1 025 Active Trelegy Ellipta 100-62.5-25 MCG/ACT Aerosol Powder Breath Activated (Fluticasone-Umec lidinium-Vilanter ol) Inhale 1 Puff by mouth in the morning. 60 Blister Dosing Unit 3 025 2024 Active Atorvastatin Calcium 10 MG Oral Tablet (Lipitor)Indicati ons:Dyslipidemia, goal LDL below 100 TAKE 1 TABLET BY MOUTH ON WEDNESDAY, WEDNESDAY AND WEDNESDAY 40 Tablet 1 025 Active predniSONE 5 MG Oral Tablet (Deltasone)Indica tions:Arthritis of knee TAKE ONE TABLET IN THE MORNING 90 Tablet 3 025 Active Montelukast Sodium 10 MG Oral Tablet (Singulair) TAKE ONE TABLET AT BEDTIME 90 Tablet 1 025 Active Levothyroxine Sodium 150 MCG Oral Tablet (Levoxyl)Indicati ons:Acquired hypothyroidism TAKE ONE TABLET IN THE MORNING 90 Tablet 025 Active Metoprolol Tartrate 25 MG Oral Tablet (Lopressor)Indica tions:HTN, goal below 140/90 TAKE 1/2 TABLET TWICE DAILY 90 Tablet 1 025 Active DULoxetine HCl 30 MG Oral Capsule Delayed Release Particles (Cymbalta)Indicat ions:Spinal stenosis of lumbar region, unspecified whether neurogenic claudication present,Recurrent major depressive disorder, in partial remission (HCC),Arthritis of knee TAKE ONE CAPSULE IN THE MORNING 90 Capsule 025 Active Montelukast Sodium 10 MG Oral Tablet (Singulair) TAKE ONE TABLET AT BEDTIME 90 Tablet 1 024 2024 Discontinued Metoprolol Tartrate 25 MG Oral Tablet (Lopressor)Indica tions:HTN, goal below 140/90 TAKE 1/2 TABLET TWICE DAILY 90 Tablet 1 024 2024 Discontinued DULoxetine HCl 30 MG Oral Capsule Delayed Release Particles (Cymbalta)Indicat ions:Spinal stenosis of lumbar region, unspecified whether neurogenic claudication present,Recurrent major depressive disorder, in partial remission (HCC),Arthritis of knee TAKE ONE CAPSULE IN THE MORNING 90 Capsule 1 024 2024 Discontinued Levothyroxine Sodium 150 MCG Oral Tablet (Levoxyl)Indicati ons:Acquired hypothyroidism TAKE ONE TABLET IN THE MORNING 90 Tablet 1 024 2024 Discontinued Hospital, Clinic, or Other Facility Administered Medication Ordered Dose Route Frequency Start Date End Date Status albuterol sulfate (PROVENTIL) (2.5 MG/3ML) 0.083% inhalation solution 2.5 mgIndications:Moderate persistent asthma without complication 2.5 mg NEBULIZER [id number] 07/22/2018 Active documented as of this encounter (statuses as of 10/24/2024) Active Problems Problem Noted Date Diagnosed Date Asthma 08/01/2024 (HFpEF) heart failure with preserved ejection fr action 08/01/2024 Bilateral cataracts 08/01/2024 On home oxygen therapy 08/01/2024 ERIK (obstructive sleep apnea) 08/01/2024 Hx of nonmelanoma skin cancer 03/01/2024 Overview [...] as of this encounter (statuses as of 10/24/2024) Resolved Problems Problem Noted Date Diagnosed Date [...] as of this encounter (statuses as of 10/24/2024) Immunizations Name Administration Dates Next Due COVID-19, MRNA-LNP, PF, 50 M CG/0.5 mL, 12 YRS AND ABOVE, IM (MODERNA-Spikevax) 11/13/2020,10/09/2020 H1N1 2009 Influenza, IM 07/09/2009 Hepatitis B, 20+ yrs 12/09/2020,08/01/2020,06/07 Pneumococcal Conjugate [...] YRS, PF, (Fluad) 05/19/2020,05/31/2019 Varicella Zoster Vaccine Eduardo lt (Zostavax) 05/19/2012 documented as of this encounter Social History Tobacco Use Types Packs/Day Years Used Date Smoking Tobacco: Former Cigarettes 0.3 12 0 07/19/1958 - 1970 Smokeless Tobacco: Never Alcohol Use Standard Drinks/Week Comments No 0 (1 standard drink = 0.6 oz pur e alcohol) PHQ-2 Answer Date Recorded PHQ Adult Total Score 1 07/26/2024 Hunger Vital Sign Answer Date Recorded Within the past 12 months, y ou worried that your food would run out before you got the money to buy more. Never true 07/26/19 25 Within the past 12 months, t he food you bought just didn't last and you didn't have money to get more. Never true 07/26/2024 Childcare Answer Date Recorded Do you feel overwhelmed with taking care of a child, family member or friend? No 07/26/2024 Does your family need help f inding childcare? (Household - for ages 0-17 years) Not on file 07/26/2024 Clothing Answer Date Recorded Have you been unable to get clothing when it was really needed? No 07/26/2024 Is your family able to get c lothes or diapers when needed? (Household - for ages 0-17 years) Not on file 07/26/2024 Personal Safety Answer Date Recorded Do you feel unsafe or have concerns for your saf ety? No 07/26/2024 Do you have concerns for you r family's safety? (Household - for ages 0-17 years) Not on file 07/26/2024 Utilities Answer Date Recorded Do you have trouble paying y our heating, water, or electric bill? No 07/26/2024 Is your family able to pay t he heat, water, or electric bill? (Household - for ages 0-17 years) Not on file 07/26/2024 Does your family have access to good internet? (Household - for ages 0-17 years) Not on file 07/26/2024 Employment Status Answer Date Recorded Are you unemployed or without regular income? No 07/26/2024 Does the household have a re gular source of income? (Household - for ages 0-17 years) Not on file 07/26/2024 Social Connections Answer Date Recorded How often do you feel lonely or isolated from th ose around you? Never 07/26/2024 Financial Resource Strain Answer Date R ecorded Do you have any trouble payi ng for your medications, or do you think you might in the future? No 07/26/2024 Does your family have troubl e paying for medicine? (Household - for ages 0-17 years) Not on file 07/26/2024 Transportation Needs Answer Date Record ed Do you have trouble getting a ride to medical visits or work? (Adult - for ages 18 years and over) Not on file 07/26/2024 Does your family have a hard time getting a ride to doctors visits? (Household - for ages 0-17 years) Not on file 07/26/2024 Has lack of transportation k ept you from medical appointments, meetings, work, or from getting things needed for daily living? Check all that apply. No 07/26/2024 Do you (or your family) have trouble finding or paying for a ride (transportation)? (Household - for ages 0-17 years) Not on file 07/26/2024 Housing Stability Answer Date Recorded Do you currently live in a s helter or have no steady place to sleep at night? No 07/26/2024 Do you think you are at risk of becoming homeless? (Adult - for ages 18 years and over) Not on file 07/26/2024 Does your family worry about paying for your home or becoming homeless? (Household - for ages 0-17 years) Not on file 0 07/26/2024 Are you homeless or worried that you might be in the future? No 07/26/2024 Are you (or your family) pastor eless or worried that you might be in the future? (Household - for ages 0-17 years) Not on file Food Insecurity Answer Date Recorded Do you need food for this week? No 07/26/2024 Are you able to get enough f ood for your family? (Household - for ages 0-17 years) Not on file 07/26/2024 Does your family need food t his week? (Household - for ages 0-17 years) Not on file 07/26/2024 Do you always have enough fo od for your family? (Household - for ages 0-17 years) Not on file 07/26/2024 Food Insecurity Answer Date Recorded Within the past 12 months, y ou worried that your food would run out before you got the money to buy more. Never true 07/26/19 25 Within the past 12 months, t he food you bought just didn't last and you didn't have money to get more. Never true 07/26/2024 Do you need food for this week? 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 Patient was notified. Successfully contacted patient and provided [facility] message. * Telephone Encounter - Lucrecia Garcia [facility] - 10/20/2024 12:45 PM EDTSigned Prescriptions: Disp Refills Montelukast Sodium 10 MG Oral Tablet (Sing*90 Tab*1 Sig: TAKE ONE TABLET AT BEDTIME Authorizing Provider: TAYLOR ZAVALA Ordering User: LUCRECIA GARCIA Levothyroxine Sodium 150 MCG Oral Tablet (*90 Tab*0 Sig: TAKE ONE TABLET IN THE MORNING Authorizing Provider: TAYLOR ZAVALA Ordering User: LUCRECIA GARCIA Met oprolol Tartrate 25 MG Oral Tablet (Lop*90 Tab*1 Sig: TAKE 1/2 TABLET TWICE DAILY Authorizing Provider: TAYLOR ZAVALA Ordering User: LUCRECIA GARCIA DULoxetine HCl 30 MG Oral Capsule Delayed *90 Cap*0 Sig: TAKE ONE CAPSULE IN THE MORNING Authorizing Provider: TAYLOR ZAVALA Ordering User: LUCRECIA GARCIA * Telephone Encounter - Lucrecia Garcia RPh - 10/20/2024 12:43 PM EDT Provided 90 days supply with 0 refill(s). Per refill protocol patient should have TSH and BMP on file within past year. Reviewed : AMP report Care Gaps/Health Maintenance medications list for any routine labs typically ordered for this patient. Lab orders placed. Please contact patient to advise of labs ordered for blood draw AND URINE specimen (patient will have to be able to void to provide sample). Fasting is not required. Advise to obtain labs before requesting the next refill. Thank you, Lucrecia Garcia, PharmD Clinical Pharmacist [facility] ([facility]) 10/20/24 12:44 PM [phone] documented in this encounter Plan of Treatment Upcoming Encounters Date Type Department Care Team (Late st Contact Info) Description 10/31/2024 4:00 PM EDT Office Visit Family Medicine [address] [place] [phone] Cynthia Santiago MD [address] [place] [address] [place] [phone] 01/01/2025 2:30 PM EDT Cardiac Studies Cardiac Studies, [facility] [address] [place] [phone] 01/09/2025 3:00 PM EDT Office Visit Pulmonary Medicine, [facility] [address] [place] [phone] Deep Frank MD [address] [place] [address] 01/24/2025 2:20 PM EDT Office Visit Family Medicine [address] [place] [phone] Taylor Zavala MD [address] [place] [address] [place] [address] 01/25/2025 2:30 PM EDT Office Visit Cardiology [address] [place] [address] Akshat Che PA-C [address] [place] [address] 02/27/2025 2:30 PM EDT Imaging Radiology [facility] [address] [place] [phone] 03/05/2025 2:20 PM EDT Office Visit Dermatology [address] [place] [address] Lois Batista PA-Gini [address] [place] [address] [place] [address] 03/12/2025 3:00 PM EDT Office Visit Pulmonary Medicine, [facility] [address] [place] [phone] Depe Frank MD [address] [place] [id number] 08/15/2025 2:20 PM EST Office Visit Family Medicine [address] [place] [phone] Taylor Zavala MD [address] [place] [address] [place] [address] Health Maintenance Due Date Last Done Comments DTap/Tdap Vaccines (1 - Tdap) 1961 Adult Wellness Visit 2008 Zoster Vaccines (2 of 3) 07/14/2012 05/19/2012 *BISPHONATE OR OTHER ACCEPTABLE MEDICATION NEEDED FOR OSTEOPOROSIS (REFER TO SMARTSET #1146) 07/03/2022 CKD PHOS USE SMARTSET 32962 06/30/202306/18, 08/25/2021, 09/12/2020, Additional history exists COVID-19 Vaccine ( season) 2024 11/13/2020, 10/09/2020 GFR 04/20/2024 10/20/2023, 03/20, 01/07/2023, Additional history exists DXA Scan 08/03/2024 08/03/2022, 03/20, 02/04/2012 Albumin/Creatinine Ratio 10/19/2024 024, 06/30/2022, 08/25/2021, Additional history exists TSH 10/19/2024 10/20/2023, 12/18, 06/23/2021, Additional history exists CKD HGB USE SMARTSET 82620 07/23/202507/23, 07/22/2024, 07/21/2024, Additional history exists Depression Monitoring 07/26/2025 07/26/2024 Pneumococcal Vaccine: 50+ Years Completed 08/21/2014, 04/03/2011 Hepatitis B Vaccine Completed 12/09/2020, 08/01/2020, 06/07/2020 VITAMIN D LEVEL ONCE IN A LIFETIME-USE SMARTSET# 76585 Completed 06/30/2022, 08/25/2021, 01/16/2020, Additional history exists Influenza Vaccine (FLU shot) Completed , 05/03/2023, 05/06/2022, Additional history exists HPV (Gardasil) Vaccine Aged Out No lo nger eligible based on patient's age to complete this topic MENINGOCOCCAL (MENACTRA/MENVEO) Aged Out No longer eligible based on patient's age to complete this topic Meningitis B Vaccine (Bexsero/Trumemba) Aged Out No longer eligible based on patient's age to complete this topic documented as of this encounter Medical Devices Not on filedocumented as of this encounter Visit Diagnoses Diagnosis Acquired hypothyroidism Unspecified hypothyroidism HTN, goal below 140/90 Unspecified essential hypertension Spinal stenosis of lumbar region, unspecified whether neurogenic claudication present Recurrent major depressive disorder, in partial remission (HCC) Arthritis of knee Unspecified arthropathy, lower leg documented in this encounter Care Teams Threader Operator Relationship Specialty Start Date End Date Taylor Zavala MD [address] [place] [address] [place] [address] PCP - General Family Medicine 04/28/21 documented as of this encounter
--- OUTSIDE RECORDS SUMMARY | 2024-11-06 08:56 | External Medical Summary | Summary of Care ---
Author Name Unknown Organization [facility] Address [address] [place] [address] Phone [phone] Care Team Providers Care Hazardous Materials Handler Name Role Phone Taylor Pat MD Primary Care Provide r Reason for Visit * Reason Comments eRx-Medication Refill Encounter Details Date Type Department Care Team (Late st Contact Info) Description 09/25/2024 Refill Family Medicine [address] [phone] Taylor Pat MD [address] [place] [address] [place] [address] Arthritis of knee Allergies Active Allergy Reactions [...] as of this encounter (statuses as of 09/26/2024) Medications home oxygen/equipment IN [place] Inhale 3 [...] before bedtime. 180 Capsule 1 023 Active Atorvastatin Calcium 10 MG Oral Tablet (Lipitor)Indicati ons:Dyslipidemia, goal LDL below 100 TAKE 1 TABLET BY MOUTH ON WEDNESDAY, WEDNESDAY AND WEDNESDAY 40 Tablet 3 024 Active Vitron-C 65-125 MG [...] THE MORNING 90 Tablet 3 024 Active Montelukast Sodium 10 MG Oral [...] THE MORNING 90 Tablet 1 024 Active Omeprazole 40 MG Oral Capsule Delayed Release (PriLOSEC)Indicat ions:Abdominal pain, generalized TAKE ONE CAPSULE IN THE MORNING 90 Capsule 1 024 Active Vitamin C 500 MG Oral Tablet (Ascorbic Acid) Take 1 Tablet by mouth in the morning. Active Pregabalin 100 MG Oral Capsule (Lyrica) Take 1 Capsule by mouth every evening. Active Allopurinol 100 MG Oral Tablet (Zyloprim)Indicat ions:Chronic gout due to renal impairment of multiple sites without tophus TAKE TWO TABLETS IN THE MORNING 180 Tablet Active amLODIPine Besylate 10 MG Oral Tablet [...] Blister Dosing Unit 3 025 2024 Active predniSONE 5 MG Oral Tablet (Deltasone)Indica tions:Arthritis of knee TAKE ONE TABLET IN THE MORNING 90 Tablet 3 025 Active predniSONE 5 MG Oral Tablet (Deltasone)Indica tions:Arthritis of knee TAKE ONE TABLET BY MOUTH IN THE MORNING 90 Tablet 3 024 2024 Discontinued Hospital, Clinic, or Other Facility Administered Medication Ordered Dose Route Frequency Start Date End Date Status albuterol sulfate (PROVENTIL) (2.5 MG/3ML) 0.083% inhalation solution 2.5 mgIndications:Moderate persistent asthma without complication 2.5 mg NEBULIZER [id number] 07/22/2018 Active documented as of this encounter (statuses as of 09/26/2024) Active Problems Problem Noted Date Diagnosed Date [...] as of this encounter (statuses as of 09/26/2024) Resolved Problems Problem Noted Date Diagnosed Date [...] as of this encounter (statuses as of 09/26/2024) Immunizations Name Administration Dates Next Due COVID-19, [...] encounter Miscellaneous Notes * Telephone Encounter - Taylor Pat MD - 09/26/2024 8:41 AM EDT Signed Prescriptions: Disp Refills predniSONE 5 MG Oral Tablet (Deltasone) 90 Tab*3 Sig: TAKE ONE TABLET IN THE MORNING Authorizing Provider: TAYLOR PAT * Telephone Encounter - Sharyn Freeman RN - 09/25/2024 2:29 PM EDTPending Prescriptions: Disp Refills predniSONE 5 MG Oral Tablet [Pharmacy Med *90 Tab*3 Sig: TAKE ONE TABLET IN THE MORNING * Telephone Encounter - Sharyn Freeman RN - 09/25/2024 2:28 PM EDT Pending Prescriptions: Disp Refills predniSONE 5 MG Oral Tablet (Deltasone) [*90 Tab*3 Sig: TAKE ONE TABLET IN THE MORNING Last Visit: 08/01/2024 (in office), Visit date not found (telemedicine) Next Visit: 10/31/2024 Last date the medication was ordered: 11/09 Patient Active Problem List Diagnosis Arthritis of [...] Hx of nonmelanoma skin cancer Hiatal hernia Asthma (HFpEF) heart failure with preserved ejection fraction (HCC) Bilateral cataracts On home oxygen therapy ERIK (obstructive sleep apnea) Labs: Lab Results Component Value Date/Time CREATININE - [facility] 1.2 (H) 10/20/2023 03:17 PM CREATININE - [facility] 1.3 (H) 05/22/2020 11:29 AM CREATININE, 24 HOUR URINE - [facility] 0.489 (L) 02/19/2014 01:18 PM CREATININE, RANDOM URINE - [facility] 148 10/20/2023 03:17 PM CREATININE, RANDOM URINE - [facility] 166 01/22/2020 03:58 PM Lab Results Component Value Date/Time POTASSIUM - [facility] 4.5 10/20/2023 03:17 PM POTASSIUM - [facility] 4.5 05/22/2020 11:29 AM Lab Results Component Value Date/Time TSH - [facility] 0.68 10/20/2023 03:17 PM TSH - [facility] 0.82 01/16/2020 12:12 PM Lab Results Component Value Date/Time LDL CHOLESTEROL (CALCULATED) - [facility] 77 10/20/2023 03:17 PM LDL CHOLESTEROL (CALCULATED) - [facility] 103 01/07/2023 12:04 PM LDL CHOLESTEROL (CALCULATED) - [facility] 104 01/16/2020 12:12 PM LDL CHOLESTEROL (CALCULATED) - [facility] 109 04/11/2019 03:29 PM LDL CHOLESTEROL (DIRECT MEASURE) - [facility] 133 (H) 11/04/2021 01:56 PM LDL CHOLESTEROL (DIRECT MEASURE) - [facility] 105 01/16/2020 12:12 PM LDL CHOLESTEROL (DIRECT MEASURE) - [facility] NOT APPLICABLE 04/11/2019 03:29 PM LDL CHOLESTEROL (DIRECT MEASURE) - [facility] NOT APPLICABLE 01/03/2016 11:22 AM Lab Results Component Value Date/Time ALT - [facility] 12 01/07/2023 12:04 PM ALT - [facility] 21 01/16/2020 12:12 PM ALTERNARIA IGE - [facility] <0.10 07/20/2018 01:10 PM Hemoglobin AIC Results: Lab Results Component Value Date/Time HEMOGLOBIN A1C - [facility] 5.1 10/20/2023 03:17 PM * Telephone Encounter - Eyad Gregory - 09/25/2024 1:48 PM EDTPending Prescriptions: Disp Refills predniSONE 5 MG Oral Tablet [Pharmacy Med *90 Tab*3 Sig: TAKE ONE TABLET IN THE MORNING documented in this encounter Plan of Treatment Upcoming Encounters Date Type Department Care Team (Late st Contact Info) Description 10/31/2024 4:00 PM EDT Office Visit Family Medicine [address] [place] [phone] Cynthia Santiago MD [address] [place] [address] [place] [phone] 01/01/2025 2:30 PM EDT Cardiac Studies Cardiac Studies, [address] [place] [address] 01/09/2025 3:00 PM EDT Office Visit Pulmonary Medicine, [address] [place] [address] Deep Frank MD [address] [place] [address] 01/24/2025 2:20 PM EDT Office Visit Family Medicine [address] [place] [phone] Taylor Pat MD [address] [place] [address] [place] [address] 01/25/2025 2:30 PM EDT Office Visit Cardiology [address] [place] [address] Akshat Che PA-Gini [address] [place] [address] 02/27/2025 2:30 PM EDT Imaging Radiology [facility] [address] [facility] [place] [phone] 03/05/2025 2:20 PM EDT Office Visit Dermatology [address] [place] [address] Lois Batista PA-C [address] [place] [address] [place] [address] 03/12/2025 3:00 PM EDT Office Visit Pulmonary Medicine, [facility] [address] [facility] [place] [address] Deep Frank MD [address] [place] [address] 08/15/2025 2:20 PM EST Office Visit Family Medicine [address] [place] [phone] Taylor Pat MD [address] [place] [address] [place] [address] Health Maintenance Due Date Last Done Comments DTap/Tdap Vaccines (1 - Tdap) 1959 Adult Wellness Visit 2008 Zoster Vaccines (2 of 3) 07/14/2012 05/19/2012 *BISPHONATE OR OTHER ACCEPTABLE MEDICATION NEEDED FOR OSTEOPOROSIS (REFER TO SMARTSET #1146) 07/03/2022 CKD PHOS USE SMARTSET 39919 06/30/202306/18, 08/25/2021, 09/12/2020, Additional history exists COVID-19 Vaccine ( season) 2024 11/13/2020, 10/09/2020 GFR 04/20/2024 10/20/2023, 03/20, 01/07/2023, Additional history exists DXA Scan 08/03/2024 08/03/2022, 03/20, 02/04/2012 Albumin/Creatinine Ratio 10/19/2024 024, 06/30/2022, 08/25/2021, Additional history exists TSH 10/19/2024 10/20/2023, 12/18, 06/23/2021, Additional history exists CKD HGB USE SMARTSET 60802 07/23/202507/23, 07/22/2024, 07/21/2024, Additional history exists Depression Monitoring 07/26/2025 07/26/2024 Pneumococcal Vaccine: 50+ Years Completed 08/21/2014, 04/03/2011 Hepatitis B Vaccine Completed 12/09/2020, 08/01/2020, 06/07/2020 VITAMIN D LEVEL ONCE IN A LIFETIME-USE SMARTSET# 93937 Completed 06/30/2022, 08/25/2021, 01/16/2020, Additional history exists [...] as of this encounter Visit Diagnoses Diagnosis Arthritis of knee Unspecified arthropathy, lower leg documented in this encounter Care Teams Hazardous Materials Handler Relationship Specialty Start Date End Date Taylor Pat MD [address] [place] [address] [place] [address] PCP - General Family Medicine 04/28/21 documented as of this encounter
--- OUTSIDE RECORDS SUMMARY | 2024-11-06 08:56 | External Medical Summary | Summary of Care ---
Author Name Unknown Organization [facility] Address [address] [place] [place] [address] Phone [phone] Care Team Providers Care Tank Processor Name Role Phone Xavier Zavala MD Primary Care Provide r Reason for Visit * Reason Comments eRx-Medication Refill Encounter Details Date Type Department Care Team (Late st Contact Info) Description 09/25/2024 Refill Cardiology [address] [place] [phone] Jeane Gonzalez PA-C [address] [place] [address] Dyslipidemia, goal LDL below 100 Allergies Active Allergy Reactions Criticality Noted Date [...] as of this encounter (statuses as of 09/27/2024) Medications home oxygen/equipment IN [place] Inhale 3 [...] AND WEDNESDAY 40 Tablet 1 025 Active Atorvastatin Calcium 10 MG Oral Tablet (Lipitor)Indicati ons:Dyslipidemia, goal LDL below 100 TAKE 1 TABLET BY MOUTH ON WEDNESDAY, WEDNESDAY AND WEDNESDAY 40 Tablet 3 024 2024 Discontinued Hospital, Clinic, or Other Facility Administered Medication Ordered Dose Route Frequency Start Date End Date Status albuterol sulfate (PROVENTIL) (2.5 MG/3ML) 0.083% inhalation solution 2.5 mgIndications:Moderate persistent asthma without complication 2.5 mg NEBULIZER [id number] 07/22/2018 Active documented as of this encounter (statuses as of 09/27/2024) Active Problems Problem Noted Date Diagnosed Date [...] as of this encounter (statuses as of 09/27/2024) Resolved Problems Problem Noted Date Diagnosed Date [...] as of this encounter (statuses as of 09/27/2024) Immunizations Name Administration Dates Next Due COVID-19, [...] encounter Miscellaneous Notes * Telephone Encounter - Ramses Wagner RPh - 09/27/2024 2:49 PM EDTSigned Prescriptions: Disp Refills Atorvastatin Calcium 10 MG Oral Tablet (Li*40 Tab*1 Sig: TAKE 1 TABLET BY MOUTH ON WEDNESDAY, WEDNESDAY AND WEDNESDAYAuthorizing Provider: JEANE GONZALEZ User: RAMSES WAGNER * Telephone Encounter - Estelita Shabazz PHARM Tech - 09/27/2024 10:30 AM EDT Pharmacy calling to check on status of Atorvastatin. Caller can be reached at [phone]. Thank you, Estelita Shabazz [employer] [facility] 09/27/2024,10:30 AM * Telephone Encounter - Eyad Gregory - 09/25/2024 3:27 PM EDTPending Prescriptions: Disp Refills Atorvastatin Calcium 10 MG Oral Tablet [Ph*40 Tab*3 Sig: TAKE 1 TABLET BY MOUTH ON WEDNESDAY, WEDNESDAY AND WEDNESDAY * Telephone Encounter - Eyad Gregory - 09/25/2024 3:26 PM EDT Did you pend patient's preferred pharmacy and medication before forwarding?yes Pharmacy: [facility] [place] Pending Prescriptions: Disp Refills Atorvastatin Calcium 10 MG Oral Tablet (L*40 Tab*3 Sig: TAKE 1 TABLET BY MOUTH ON WEDNESDAY, WEDNESDAY AND WEDNESDAY Last Visit: 06/13/2024 (in office), Visit date not found (telemedicine) Next Visit: 01/25/2025 If no future appointments scheduled, and last appointment is greater than a year ago, please schedule patient for a follow-up appointment Last date the medication was ordered: 09/24/2023 Is this request for a controlled substance?No Urine Drug Screen:No results found. However, due to the size of the patient record, not all encounters were searched. Please check Results Review for a complete set of results. Patient Phone Numbers Labs: Lab Results Component Value Date/Time CREAT 1.2 (H) 10/20/2023 03:17 PM CREAT 1.3 (H) 05/22/2020 11:29 AM POTASSIUM 4.5 10/20/2023 03:17 PM POTASSIUM 4.5 05/22/2020 11:29 AM TSH 0.68 10/20/2023 03:17 PM TSH 0.82 01/16/2020 12:12 PM LDL 77 10/20/2023 03:17 PM LDL 105 01/16/2020 12:12 PM LDL 104 01/16/2020 12:12 PM ALT 12 01/07/2023 12:04 PM ALT 21 01/16/2020 12:12 PM HGBA1C 5.1 10/20/2023 03:17 PM documented in this encounter Plan of Treatment Upcoming Encounters Date Type Department Care Team (Late st Contact Info) Description 10/31/2024 4:00 PM EDT Office Visit Family Medicine [address] [place] [phone] Cynthia Santiago MD [address] [place] [address] [place] [phone] 01/01/2025 2:30 PM EDT Cardiac Studies Cardiac Studies, [facility] [address] [facility] [place] [address] 01/09/2025 3:00 PM EDT Office Visit Pulmonary Medicine, [facility] [address] [facility] [place] [address] Deep Frank MD [address] [place] [address] 01/24/2025 2:20 PM EDT Office Visit Family Medicine [address] [place] [phone] Xavier Zavala MD [address] [place] [address] [place] [address] 01/25/2025 2:30 PM EDT Office Visit Cardiology [address] [place] [address] Jeane Gonzalez PA-C [address] [facility] [place] [address] 02/27/2025 2:30 PM EDT Imaging Radiology [facility] [address] [facility] [place] [phone] 03/05/2025 2:20 PM EDT Office Visit Dermatology [address] [place] [address] Lois Batista PA-C [address] [place] [address] [place] [address] 03/12/2025 3:00 PM EDT Office Visit Pulmonary Medicine, [facility] [address] [facility] [place] [address] Deep Frank MD [address] [place] [address] 08/15/2025 2:20 PM EST Office Visit Family Medicine [address] [place] [phone] Xavier Zavala MD [address] [place] [address] [place] [phone] Health Maintenance Due Date Last Done Comments DTap/Tdap Vaccines (1 - Tdap) 1959 Adult Wellness Visit 2008 Zoster Vaccines (2 of 3) 07/14/2012 05/19/2012 *BISPHONATE OR OTHER ACCEPTABLE MEDICATION NEEDED FOR OSTEOPOROSIS (REFER TO SMARTSET #1146) 07/03/2022 CKD PHOS USE SMARTSET 38862 06/30/202306/18, 08/25/2021, 09/12/2020, Additional history exists COVID-19 Vaccine ( season) 2024 11/13/2020, 10/09/2020 GFR 04/20/2024 10/20/2023, 03/20, 01/07/2023, Additional history exists DXA Scan 08/03/2024 08/03/2022, 03/20, 02/04/2012 Albumin/Creatinine Ratio 10/19/2024 024, 06/30/2022, 08/25/2021, Additional history exists TSH 10/19/2024 10/20/2023, 12/18, 06/23/2021, Additional history exists CKD HGB USE SMARTSET 54439 07/23/202507/23, 07/22/2024, 07/21/2024, Additional history exists Depression Monitoring 07/26/2025 07/26/2024 Pneumococcal Vaccine: 50+ Years Completed 08/21/2014, 04/03/2011 Hepatitis B Vaccine Completed 12/09/2020, 08/01/2020, 06/07/2020 VITAMIN D LEVEL ONCE IN A LIFETIME-USE SMARTSET# 46331 Completed 06/30/2022, 08/25/2021, 01/16/2020, Additional history exists [...] as of this encounter Visit Diagnoses Diagnosis Dyslipidemia, goal LDL below 100 Other and unspecified hyperlipidemia documented in this encounter Care Teams Tank Processor Relationship Specialty Start Date End Date Xavier Zavala MD [address] [place] [address] [place] [phone] PCP - General Family Medicine 04/28/21 documented as of this encounter
--- OUTSIDE RECORDS SUMMARY | 2024-11-06 08:56 | External Medical Summary | Summary of Care ---
Author Name Unknown Organization [facility] Address [address] [place] [address] Phone [phone] Care Team Providers Care Restaurant Team Member Name Role Phone Xavier Zavala MD Primary Care Provide r Reason for Visit * Reason Onset Date Comments Medication Refill 09/27/2024 Encounter Details Date Type Department Care Team (Late st Contact Info) Description 09/27/2024 Telephone Cardiology, [facility] [address] [place] [address] Akshat Che, MARTAC [address] [facility] [place] [address] Medication Refill Allergies Active Allergy Reactions Criticality Noted Date [...] Reported on 09/06/2024 Senna 8.6 MG Oral CapsuleIndications :Constipation, unspecified constipation type,Abdominal pain, generalized Take 8.6 mg by mouth in the morning and 8.6 mg before bedtime. 180 Capsule 10/15/19 23 Active Atorvastatin Calcium 10 MG Oral Tablet (Lipitor)Indicatio ns:Dyslipidemia, goal LDL below 100 TAKE 1 TABLET BY MOUTH ON WEDNESDAY, WEDNESDAY AND WEDNESDAY 40 Tablet 3 09/24/19 24 Active Vitron-C 65-125 MG Oral Tablet (Iron-Vitamin C 65-125 mg per tab)Indications:Ir on deficiency anemia, unspecified iron deficiency anemia type TAKE 1 TABLET BY MOUTH ON WEDNESDAY, WEDNESDAY AND WEDNESDAY 45 Tablet 3 10/22/19 24 Active Restasis 0.05 % Ophthalmic Emulsion 11/16/19 24 Active Macular Health Formula Oral Capsule Take 3 Capsules by mouth every morning. Active Furosemide 20 MG Oral Tablet (Lasix)Indications :Acute heart failure with preserved ejection fraction (HCC) TAKE ONE TABLET BY MOUTH IN THE MORNING 90 Tablet 3 12/17/19 24 Active Montelukast Sodium 10 MG Oral [...] MORNING 90 Tablet 1 05/05/20 24 Active Omeprazole 40 MG Oral Capsule Delayed Release (PriLOSEC)Indicati ons:Abdominal pain, generalized TAKE ONE CAPSULE IN THE MORNING 90 Capsule 1 06/02/20 24 Active Vitamin C 500 MG Oral Tablet (Ascorbic Acid) Take 1 Tablet by mouth in the morning. Active Pregabalin 100 MG Oral Capsule (Lyrica) Take 1 Capsule by mouth every evening. 07/23/19 25 Active Allopurinol 100 MG Oral Tablet (Zyloprim)Indicati ons:Chronic gout due to renal impairment of multiple sites without tophus TAKE TWO TABLETS IN THE MORNING 180 Tablet 08/25/19 25 Active amLODIPine Besylate 10 MG Oral Tablet (Norvasc)Indicatio ns:(HFpEF) heart failure with preserved ejection fraction (HCC),Hypertensive heart failure (HCC) Take 1 Tablet by mouth in the morning. 90 Tablet 1 08/30/19 25 Active Lisinopril 40 MG Oral TabletIndications: Hypertensive heart failure (HCC) Take 1 Tablet by mouth in the morning. 90 Tablet 1 08/30/19 25 Active Trelegy Ellipta 100-62.5-25 MCG/ACT Aerosol Powder Breath Activated (Fluticasone-Umecl idinium-Vilanterol ) Inhale 1 Puff by mouth in the morning. 60 Blister Dosing Unit 3 09/06/19 25 025 Active predniSONE 5 MG Oral Tablet (Deltasone)Indicat ions:Arthritis of knee TAKE ONE TABLET IN THE MORNING 90 Tablet 3 09/27/19 25 Active Hospital, Clinic, or Other Facility Administered Medication Ordered Dose Route Frequency Start Date End Date Status albuterol sulfate (PROVENTIL) (2.5 MG/3ML) 0.083% inhalation solution 2.5 mgIndications:Moderate persistent asthma without complication 2.5 mg NEBULIZER [id number] 07/22/2018 Active documented as of this encounter [...] encounter Miscellaneous Notes * Telephone Encounter - Arlene Lynne PHARM Tech - 09/27/2024 10:29 AM EDT Pharmacy calling regarding medication prescribed by a Specialist. Transferred to [facility] Specialty Line Thank you, Arlene Lynne Blind Aide I [facility] ([facility]) (Formerly [facility]) 09/27/2024,10:29 AM documented in this encounter Plan of Treatment Upcoming Encounters Date Type Department Care Team (Late st Contact Info) Description 10/31/2024 4:00 PM EDT Office Visit Family Medicine [address] [phone] Cynthia Santiago MD [address] [place] [address] [place] [phone] 01/01/2025 2:30 PM EDT Cardiac Studies [facility] [place] [address] 01/09/2025 3:00 PM EDT Office Visit Pulmonary Medicine, [facility] [place] [address] Deep [facility] [address] [facility] [address] 01/24/2025 2:20 PM EDT Office Visit Family Medicine [address] [phone] Xavier Zavala MD [address] [place] [address] [place] [address] 01/25/2025 2:30 PM EDT Office Visit Cardiology [address] [place] [address] Akshat Che PATreyC [address] [place] [address] 02/27/2025 2:30 PM EDT Imaging Radiology [facility] [address] [place] [phone] 03/05/2025 2:20 PM EDT Office Visit Dermatology [address] [place] [address] Lois Batista PA-C [address] [place] [address] [place] [address] 03/12/2025 3:00 PM EDT Office Visit Pulmonary Medicine, [facility] [address] [place] [address] Deep Frank MD [address] [facility] [place] [address] 08/15/2025 2:20 PM EST Office Visit Family Medicine [address] [place] [phone] Xavier Zavala MD [address] [place] [address] [place] [address] Health Maintenance Due Date Last Done Comments DTap/Tdap Vaccines (1 - Tdap) 1959 Adult Wellness Visit 2008 Zoster Vaccines (2 of 3) 07/14/2012 05/19/2012 *BISPHONATE OR OTHER ACCEPTABLE MEDICATION NEEDED FOR OSTEOPOROSIS (REFER TO SMARTSET #1146) 07/03/2022 CKD PHOS USE SMARTSET 14307 06/30/202306/18, 08/25/2021, 09/12/2020, Additional history exists COVID-19 Vaccine ( - 2023- season) 2024 11/13/2020, 10/09/2020 GFR 04/20/2024 10/20/2023, 03/20, 01/07/2023, Additional history exists DXA Scan 08/03/2024 08/03/2022, 03/20, 02/04/2012 Albumin/Creatinine Ratio 10/19/2024 024, 06/30/2022, 08/25/2021, Additional history exists TSH 10/19/2024 10/20/2023, 12/18, 06/23/2021, Additional history exists CKD HGB USE SMARTSET 65654 07/23/202507/23, 07/22/2024, 07/21/2024, Additional history exists Depression Monitoring 07/26/2025 07/26/2024 Pneumococcal Vaccine: 50+ Years Completed 08/21/2014, 04/03/2011 Hepatitis B Vaccine Completed 12/09/2020, 08/01/2020, 06/07/2020 VITAMIN D LEVEL ONCE IN A LIFETIME-USE SMARTSET# [id number] Completed 06/30/2022, 08/25/2021, 01/16/2020, Additional history exists [...] filedocumented as of this encounter Care Teams Restaurant Team Member Relationship Specialty Start Date End Date Xavier Zavala MD [address] [place] [address] [place] [phone] PCP - General Family Medicine 04/28/21 documented as of this encounter
--- OUTSIDE RECORDS SUMMARY | 2024-11-06 08:56 | External Medical Summary | Summary of Care ---
Author Name Unknown Organization [facility] Address [address] [place] [address] Phone [phone] Care Team Providers Care Traveling Operator Name Role Phone Taylor Zavala MD Primary Care Provide r Reason for Visit * Reason Comments eRx-Medication Refill Encounter Details Date Type Department Care Team (Late st Contact Info) Description 10/23/2024 Refill Family Medicine [address] [place] [address] Taylor Zavala MD [address] [place] [address] [place] [phone] Iron deficiency anemia, unspecified iron deficiency anemia type Allergies Active Allergy Reactions Criticality Noted Date [...] before bedtime. 180 Capsule 1 023 Active Restasis 0.05 % Ophthalmic Emulsion 024 [...] IN THE MORNING 90 Capsule 025 Active Vitron-C 65-125 MG Oral Tablet (Iron-Vitamin C 65-125 mg per tab)Indications:I aster deficiency anemia, unspecified iron deficiency anemia type TAKE 1 TABLET BY MOUTH ON WEDNESDAY, WEDNESDAY AND WEDNESDAY 45 Tablet 3 025 Active Vitron-C 65-125 MG Oral Tablet (Iron-Vitamin C 65-125 mg per tab)Indications:I aster deficiency anemia, unspecified iron deficiency anemia type TAKE 1 TABLET BY MOUTH ON WEDNESDAY, WEDNESDAY AND WEDNESDAY 45 Tablet 3 024 2024 Discontinued Hospital, Clinic, or Other Facility Administered Medication Ordered Dose Route Frequency Start Date End Date Status albuterol sulfate (PROVENTIL) (2.5 MG/3ML) 0.083% inhalation solution 2.5 mgIndications:Moderate persistent asthma without complication 2.5 mg NEBULIZER [id number] 07/22/2018 Active documented as of this encounter [...] No 07/26/2024 Does the household have a [facility] source [facility] income? (Household - for ages [...] Miscellaneous Notes * Telephone Encounter - Taylor Zavala MD - 10/24/2024 9:44 AM EDT Signed Prescriptions: Disp Refills Vitron-C 65-125 MG Oral Tablet (Iron-Vitam*45 Tab*3 Sig: TAKE 1 TABLET BY MOUTH ON WEDNESDAY, WEDNESDAY AND WEDNESDAY Authorizing Provider: TAYLOR ZAVALA * Telephone Encounter - Monika Bowser [facility] - 10/24/2024 9:36 AM EDT Pending Prescriptions: Disp Refills Vitron-C 65-125 MG Oral Tablet [Pharmacy M*45 Tab*3 Sig: TAKE 1 TABLET BY MOUTH ON WEDNESDAY, WEDNESDAY AND WEDNESDAY * Telephone Encounter - Monika Bowser RP - 10/24/2024 9:36 AM EDT Telepharmacy is currently not authorized to approve refills for this class of medication per refillprotocol. Thank you, Monika Bowser, PharmD Staff Pharmacist Refill Call Center [phone] 10/24/2024, 9:36 AM Pending Prescriptions: Disp Refills Vitron-C 65-125 MG Oral Tablet [Pharmacy M*45 Tab*3 Sig: TAKE 1 TABLET BY MOUTH ON WEDNESDAY, WEDNESDAY AND WEDNESDAY Last Visit: 08/01/2024 (in office), Visit date not found (telemedicine) Next Visit: 10/31/2024 If no future appointments scheduled, and last appointment is greater than a year ago, please schedule patient for a follow-up appointment Last date the medication was ordered: 10/22/23 Pharmacy: [facility], [address] [place] Is this request for a controlled substance?No [...] 4:00 PM EDT Office Visit Family Medicine [address] [place] [phone] Cynthia Santiago MD [address] [place] [address] [place] [phone] 01/01/2025 2:30 PM EDT Cardiac Studies Cardiac Studies, [facility] [address] [place] [phone] 01/09/2025 3:00 PM EDT Office Visit Pulmonary Medicine, [facility] [address] [place] [phone] Deep Frank MD [address] [place] [address] 01/24/2025 2:20 PM EDT Office Visit Family Medicine [address] [place] [phone] Taylor Zavala MD [address] [place] [address] [place] [address] 01/25/2025 2:30 PM EDT Office Visit Cardiology [address] [place] [address] Akshat Che PA-C [address] [place] [address] 02/27/2025 2:30 PM EDT Imaging Radiology [facility] [address] [place] [phone] 03/05/2025 2:20 PM EDT Office Visit Dermatology [address] [place] [address] Lois Batista PA-C [address] [place] [address] [place] [address] 03/12/2025 3:00 PM EDT Office Visit Pulmonary Medicine, [facility] [address] [place] [phone] Deep Frank MD [address] [place] [address] 08/15/2025 2:20 PM EST Office Visit Family Medicine [address] [place] [phone] Taylor Zavala MD [address] [place] [address] [place] [address] Health Maintenance Due Date Last Done Comments DTap/Tdap Vaccines (1 - Tdap) 1959 Adult Wellness Visit 2008 Zoster Vaccines (2 of 3) 07/14/2012 05/19/2012 *BISPHONATE OR OTHER ACCEPTABLE MEDICATION NEEDED FOR OSTEOPOROSIS (REFER TO SMARTSET #1146) 07/03/2022 CKD PHOS USE SMARTSET 75930 06/30/202306/18, 08/25/2021, 09/12/2020, Additional history exists COVID-19 Vaccine ( season) 2024 11/13/2020, 10/09/2020 GFR 04/20/2024 10/20/2023, 03/20, 01/07/2023, Additional history exists DXA Scan 08/03/2024 08/03/2022, 03/20, 02/04/2012 Albumin/Creatinine Ratio 10/19/2024 024, 06/30/2022, 08/25/2021, Additional history exists TSH 10/19/2024 10/20/2023, 12/18, 06/23/2021, Additional history exists CKD HGB USE SMARTSET 73808 07/23/202507/23, 07/22/2024, 07/21/2024, Additional history exists Depression Monitoring 07/26/2025 07/26/2024 Pneumococcal Vaccine: 50+ Years Completed 08/21/2014, 04/03/2011 Hepatitis B Vaccine Completed 12/09/2020, 08/01/2020, 06/07/2020 VITAMIN D LEVEL ONCE IN A LIFETIME-USE SMARTSET# 60660 Completed 06/30/2022, 08/25/2021, 01/16/2020, Additional history exists [...] as of this encounter Visit Diagnoses Diagnosis Iron deficiency anemia, unspecified iron deficiency anemia type documented in this encounter Care Teams Traveling Operator Relationship Specialty Start Date End Date Taylor Zavala MD [address] [place] [address] [place] [phone] PCP - General Family Medicine 04/28/21 documented as of this encounter
--- OUTSIDE RECORDS SUMMARY | 2024-11-06 08:57 | External Medical Summary | Summary of Care ---
Author Name Unknown Organization [facility] Address [address] [place] [address] Phone [phone] Care Team Providers Care Talent Acquisition Partner Name Role Phone Xavier Zavala MD Primary Care Provide r Reason for Visit * Reason Onset Date Comments Med Request 08/30/2024 Encounter Details Date Type Department Care Team (Late st Contact Info) Description 08/30/2024 Telephone Family Medicine [address] [place] [phone] Xavier Zavala MD [address] [place] [address] [place] [address] Med Request Allergies Active Allergy Reactions Criticality Noted Date [...] as of this encounter (statuses as of 08/30/2024) Medications home oxygen/equipment IN GAS Inhale 3 [...] Patient taking differently:100 mg OralPRN, Reported on 08/02/2024 Senna 8.6 MG Oral CapsuleIndications :Constipation, unspecified [...] THE MORNING 180 Tablet 08/25/19 25 Active Lisinopril 40 MG Oral TabletIndications: Hypertensive heart failure (HCC) Take 1 Tablet by mouth in the morning. 90 Tablet 1 08/30/19 25 Active Lisinopril 40 MG Oral Tablet Take 1 Tablet by mouth in the morning. 07/31/19 25 025 Discontin ued(Refil l) Hospital, Clinic, or Other Facility Administered Medication Ordered Dose Route Frequency Start Date End Date Status albuterol sulfate (PROVENTIL) (2.5 MG/3ML) 0.083% inhalation solution 2.5 mgIndications:Moderate persistent asthma without complication 2.5 mg NEBULIZER [id number] 07/22/2018 Active documented as of this encounter (statuses as of 08/30/2024) Active Problems Problem Noted Date Diagnosed Date [...] as of this encounter (statuses as of 08/30/2024) Resolved Problems Problem Noted Date Diagnosed Date [...] as of this encounter (statuses as of 08/30/2024) Immunizations Name Administration Dates Next Due COVID-19, [...] No 07/26/2024 Does the household have a [facility] source of income? (Household - for ages [...] encounter Miscellaneous Notes * Telephone Encounter - Lois Sanchez, distributor cleaner - 08/30/2024 11:16 AM EST Pharmacy calling requesting the following medication below that is listed as "Historical". The following information was provided: Medication Name: Lisinopril Strength: 40mg Directions: Take 1 tablet by mouth in the morning Preferred Quantity: 90 Previous Prescriber: [facility] Preferred Pharmacy: [facility], [address] [place] Please review and approve if appropriate. Thank you, Lois Sanchez Clinic Mgr I [facility] ([facility]) 08/30/2024,11:17 AM documented in this encounter Plan of Treatment Upcoming Encounters Date Type Department Care Team (Late st Contact Info) Description 09/06/2024 3:30 PM EST Office Visit Pulmonary Medicine, [address] [place] [address] Deep Frank MD [address] [place] [address] 10/31/2024 4:00 PM EDT Office Visit [address] [place] [phone] Cynthia Santiago MD [address] [place] [address] [place] [phone] 01/01/2025 2:30 PM EDT Cardiac Studies Cardiac Studies, [address] [place] [address] 01/09/2025 3:00 PM EDT Office Visit Pulmonary Medicine, [facility] [address] [place] [address] Deep Frank MD [address] [place] [address] 01/24/2025 2:20 PM EDT Office Visit Family Medicine [address] [place] [phone] Xavier Zavala MD [address] [place] [address] [place] [address] 01/25/2025 2:30 PM EDT Office Visit Cardiology [address] [place] [address] Akshat Che PA-C [address] [place] [address] 02/27/2025 2:30 PM EDT Imaging Radiology [facility] [address] [place] [phone] 03/05/2025 2:20 PM EDT Office Visit Dermatology [address] [place] [address] Lois Batista PA-C [address] [place] [address] [place] [address] 08/15/2025 2:20 PM EST Office Visit [address] [place] [phone] Xavier Zavala MD [address] [place] [address] [place] [address] Health Maintenance Due Date Last Done Comments DTap/Tdap Vaccines (1 - Tdap) 1959 Adult Wellness Visit 2008 Zoster Vaccines (2 of 3) 07/14/2012 05/19/2012 *BISPHONATE OR OTHER ACCEPTABLE MEDICATION NEEDED FOR OSTEOPOROSIS (REFER TO SMARTSET #1146) 07/03/2022 CKD PHOS USE SMARTSET 52018 06/30/202306/18, 08/25/2021, 09/12/2020, Additional history exists COVID-19 Vaccine ( season) 2024 11/13/2020, 10/09/2020 GFR 04/20/2024 10/20/2023, 03/20, 01/07/2023, Additional history exists DXA Scan 08/03/2024 08/03/2022, 03/20, 02/04/2012 Albumin/Creatinine Ratio 10/19/2024 024, 06/30/2022, 08/25/2021, Additional history exists TSH 10/19/2024 10/20/2023, 12/18, 06/23/2021, Additional history exists CKD HGB USE SMARTSET 64629 07/23/202507/23, 07/22/2024, 07/21/2024, Additional history exists Depression Monitoring 07/26/2025 07/26/2024 Pneumococcal Vaccine: 50+ Years Completed 08/21/2014, 04/03/2011 Hepatitis B Vaccine Completed 12/09/2020, 08/01/2020, 06/07/2020 VITAMIN D LEVEL ONCE IN A LIFETIME-USE SMARTSET# 31092 Completed 06/30/2022, 08/25/2021, 01/16/2020, Additional history exists [...] as of this encounter Visit Diagnoses Diagnosis Hypertensive heart failure (HCC)- Primary 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
--- OUTSIDE RECORDS SUMMARY | 2024-11-06 08:57 | External Medical Summary | Summary of Care ---
Author Name Unknown Organization [facility] Address [address] [place] [address] Phone [phone] Care Team Providers Care Green Chain Off Bearer Name Role Phone Xavier Zavala MD Primary Care Provide r Reason for Visit * Reason Onset Date Comments Med Request 08/30/2024 Encounter Details Date Type Department Care Team (Late st Contact Info) Description 08/30/2024 Telephone Family Medicine [address] [place] [phone] Xavier Zavala MD [address] [place] [address] [place] [address] Med Request Allergies Active Allergy [...] morning. 07/31/19 25 025 Discontin ued(Refil l) amLODIPine Besylate 10 MG Oral Tablet (Norvasc) Take 1 Tablet by mouth in the morning. 07/31/19 25 025 Discontin ued(Refil l) Hospital, Clinic, or Other Facility Administered Medication Ordered Dose Route Frequency Start Date End Date Status albuterol sulfate (PROVENTIL) (2.5 MG/3ML) 0.083% inhalation solution 2.5 mgIndications:Moderate persistent asthma without complication 2.5 mg NEBULIZER [id number] 07/22/2018 Active documented as of this encounter [...] Miscellaneous Notes * Telephone Encounter - Lois Sanchez PHARM Tech - 08/30/2024 11:13 AM EST Pharmacy calling requesting the following medication below that is listed as "Historical". The following information was provided: Medication Name: Amlodipine Strength: 10mg Directions: Take 1 tablet by mouth in the morning Preferred Quantity: 90 Previous Prescriber: [facility] Preferred Pharmacy: [facility], [address] [place] Please review and approve if appropriate. Thank you, Lois Sanchez Slice Cutting Machine Operator I [facility] ([facility]) 08/30/2024,11:15 AM documented in this encounter Plan of Treatment Upcoming Encounters Date Type Department Care Team (Late st Contact Info) Description 09/06/2024 3:30 PM EST Office Visit Pulmonary Medicine, [address] [place] [address] Deep Frank MD [facility] [place] [address] 10/31/2024 4:00 PM EDT Office Visit Family Medicine [address] [place] [phone] Cynthia Santiago MD [address] [place] [address] [place] [phone] 01/01/2025 2:30 PM EDT Cardiac Studies Cardiac Studies, [facility] [place] [address] 01/09/2025 3:00 PM EDT Office Visit Pulmonary Medicine, [address] [place] [address] Deep Frank MD [address] [place] [address] 01/24/2025 2:20 PM EDT Office Visit Family Medicine [address] [place] [phone] Xavier Zavala MD [address] [place] [address] [place] [address] 01/25/2025 2:30 PM EDT Office Visit Cardiology [address] [place] [address] Akshat Che PA-C [address] [place] [address] 02/27/2025 2:30 PM EDT Imaging Radiology [facility] [address] [place] [phone] 03/05/2025 2:20 PM EDT Office Visit Dermatology [address] [place] [address] Lois Batista PA-C [address] [place] [address] [place] [address] 08/15/2025 2:20 PM EST Office Visit Family [address] [place] [phone] Xavier Zavala MD [address] [place] [address] [place] [address] Health Maintenance Due Date Last Done Comments DTap/Tdap Vaccines (1 - Tdap) 1959 Adult Wellness Visit 2008 Zoster Vaccines (2 of 3) 07/14/2012 05/19/2012 *BISPHONATE OR OTHER ACCEPTABLE MEDICATION NEEDED FOR OSTEOPOROSIS (REFER TO SMARTSET #1146) 07/03/2022 CKD PHOS USE SMARTSET 40607 06/30/202306/18, 08/25/2021, 09/12/2020, Additional history exists COVID-19 Vaccine ( season) 2024 11/13/2020, 10/09/2020 GFR 04/20/2024 10/20/2023, 03/20, 01/07/2023, Additional history exists DXA Scan 08/03/2024 08/03/2022, 03/20, 02/04/2012 Albumin/Creatinine Ratio 10/19/2024 024, 06/30/2022, 08/25/2021, Additional history exists TSH 10/19/2024 10/20/2023, 12/18, 06/23/2021, Additional history exists CKD HGB USE SMARTSET 78503 07/23/202507/23, 07/22/2024, 07/21/2024, Additional history exists Depression Monitoring 07/26/2025 07/26/2024 Pneumococcal Vaccine: 50+ Years Completed 08/21/2014, 04/03/2011 Hepatitis B Vaccine Completed 12/09/2020, 08/01/2020, 06/07/2020 VITAMIN D LEVEL ONCE IN A LIFETIME-USE SMARTSET# [id number] Completed 06/30/2022, 08/25/2021, 01/16/2020, Additional history exists [...] as of this encounter Visit Diagnoses Diagnosis (HFpEF) heart failure with preserved ejection fraction (HCC)- Primary Hypertensive heart failure (HCC) Unspecified hypertensive heart disease with heart failure documented in this encounter Care Teams Green Chain Off Bearer Relationship Specialty Start Date End Date Xavier Zavala MD [address] [place] [address] [place] [phone] PCP - General Family Medicine 04/28/21 documented as of this encounter
--- OUTSIDE RECORDS SUMMARY | 2024-11-06 08:57 | External Medical Summary | Summary of Care ---
Author Name Unknown Organization [facility] Address [address] [place] [address] Phone [phone] Care Team Providers Care Bi Manager Name Role Phone Xavier Zavala MD Primary Care Provide r Reason for Visit * Reason Onset Date Comments Order Request 09/05/2024 Oxygen Encounter Details Date Type Department Care Team (Late st Contact Info) Description 09/05/2024 Telephone Pulmonary Medicine, [facility] [place] [address] Deep Frank [facility] [address] [facility] [phone] Order Request (Oxygen) Allergies Active Allergy Reactions Criticality Noted Date [...] as of this encounter (statuses as of 09/05/2024) Medications home oxygen/equipment IN GAS Inhale 3 [...] bedtime. 180 Capsule 1 10/15/19 23 Active Atorvastatin Calcium 10 MG [...] morning. 90 Tablet 1 08/30/19 25 Active Hospital, Clinic, or Other Facility Administered Medication Ordered Dose Route Frequency Start Date End Date Status albuterol sulfate (PROVENTIL) (2.5 MG/3ML) 0.083% inhalation solution 2.5 mgIndications:Moderate persistent asthma without complication 2.5 mg NEBULIZER [id number] 07/22/2018 Active documented as of this encounter (statuses as of 09/05/2024) Active Problems Problem Noted Date Diagnosed Date [...] as of this encounter (statuses as of 09/05/2024) Resolved Problems Problem Noted Date Diagnosed Date [...] as of this encounter (statuses as of 09/05/2024) Immunizations Name Administration Dates Next Due COVID-19, [...] encounter Miscellaneous Notes * Telephone Encounter - Marta Trejo LPN - 09/05/2024 9:56 AM EST These orders placed to [facility]. * Telephone Encounter - Marta Trejo LPN - 09/05/2024 9:56 AM EST ----- Message from Deep Frank MD sent at 09/05/2024 7:48 AM EST ----- Please ensure processing of home rest and exercise oxygen therapy at 3 LPM. documented in this encounter Plan of Treatment Upcoming Encounters Date Type Department Care Team (Late st Contact Info) Description 09/06/2024 3:30 PM EST Office Visit Pulmonary Medicine, [facility] [address] [facility] [place] [address] Deep Frank MD [address] [place] [address] 10/31/2024 4:00 PM EDT Office Visit Family Medicine [address] [phone] Cynthia Santiago MD [address] [place] [address] [place] [phone] 01/01/2025 2:30 PM EDT Cardiac Studies Cardiac Studies, [facility] [address] [facility] [place] [address] 01/09/2025 3:00 PM EDT Office Visit Pulmonary Medicine, [facility] [address] [place] [address] Deep Frank MD [address] [place] [address] 01/24/2025 2:20 PM EDT Office Visit Family Medicine [address] [place] [phone] Xavier Zavala MD [address] [place] [address] [place] [address] 01/25/2025 2:30 PM EDT Office Visit Cardiology [address] [place] [address] Akshat Che PA-C [address] [place] [address] 02/27/2025 2:30 PM EDT Imaging Radiology [facility] [address] [place] [phone] 03/05/2025 2:20 PM EDT Office Visit Dermatology [address] [place] [address] Lois Batista PA-C [address] [place] [address] [place] [address] 08/15/2025 2:20 PM EST Office Visit Family [address] [place] [phone] Xavier Zavala MD [address] [place] [address] [place] [address] Health Maintenance Due Date Last Done Comments DTap/Tdap Vaccines (1 - Tdap) 1959 Adult Wellness Visit 2008 Zoster Vaccines (2 of 3) 07/14/2012 05/19/2012 *BISPHONATE OR OTHER ACCEPTABLE MEDICATION NEEDED FOR OSTEOPOROSIS (REFER TO SMARTSET #1146) 07/03/2022 CKD PHOS USE SMARTSET 29802 06/30/202306/18, 08/25/2021, 09/12/2020, Additional history exists COVID-19 Vaccine ( season) 2024 11/13/2020, 10/09/2020 GFR 04/20/2024 10/20/2023, 03/20, 01/07/2023, Additional history exists DXA Scan 08/03/2024 08/03/2022, 03/20, 02/04/2012 Albumin/Creatinine Ratio 10/19/2024 024, 06/30/2022, 08/25/2021, Additional history exists TSH 10/19/2024 10/20/2023, 12/18, 06/23/2021, Additional history exists CKD HGB USE SMARTSET 72740 07/23/202507/23, 07/22/2024, 07/21/2024, Additional history exists Depression Monitoring 07/26/2025 07/26/2024 Pneumococcal Vaccine: 50+ Years Completed 08/21/2014, 04/03/2011 Hepatitis B Vaccine Completed 12/09/2020, 08/01/2020, 06/07/2020 VITAMIN D LEVEL ONCE IN A LIFETIME-USE SMARTSET# 35109 Completed 06/30/2022, 08/25/2021, 01/16/2020, Additional history exists [...] filedocumented as of this encounter Care Teams Bi Manager Relationship Specialty Start Date End Date Xavier Zavala MD [address] [place] [address] [place] [phone] PCP - General Family Medicine 04/28/21 documented as of this encounter
--- OUTSIDE RECORDS SUMMARY | 2024-11-06 08:57 | External Medical Summary | Summary of Care ---
Author Name Unknown Organization [facility] Address [address] [place] [address] Phone [phone] Care Team Providers Care Olive Knocker Name Role Phone Xavier Zavala MD Primary Care Provide r Reason for Visit * Reason Onset Date Comments Health Maintenance 08/30/2024 Encounter Details Date Type Department Care Team (Late st Contact Info) Description 08/30/2024 Telephone Family Medicine [address] [phone] Xavier Zavala MD [address] [place] [address] [place] [address] Health Maintenance Allergies Active Allergy Reactions Criticality Noted Date [...] 08/25/19 25 Active Lisinopril 40 MG Oral Tablet [...] persistent asthma without complication 2.5 mg NEBULIZER [id number] 07/22/2018 Active documented as of this encounter [...] No 07/26/2024 Does the household have a [facility] income? (Household - for [...] encounter Miscellaneous Notes * Telephone Encounter - Lyubov Jernigan LPN - 08/30/2024 10:32 AM EST Care Gaps Comprehensive Care Outreach Last Office/Telemedicine Visit: 08/01/2024 (in office), Visit date not found (telemedicine) Next Office Visit: 10/31/2024 Hemoglobin AIC Results: Lab Results Component Value Date/Time HEMOGLOBIN A1C - BRIANER 5.1 10/20/2023 03:17 PM BP Readings from Last 1 Encounters: 08/22/24 128/72 Reviewed Health Maintenance below: Health Maintenance Topic Date Due DTap/Tdap Vaccines (1 - Tdap) Never done Adult Wellness Visit Never done Zoster Vaccines (2 of 3) 07/14/2012 *BISPHONATE OR OTHER ACCEPTABLE MEDICATION NEEDED FOR OSTEOPOROSIS (REFER TO SMARTSET #1146) Never done CKD PHOS USE SMARTSET 21915 06/30/2023 COVID-19 Vaccine ( season) 2024 GFR 04/20/2024 DXA Scan 08/03/2024 Albumin/Creatinine Ratio 10/19/2024 TSH 10/19/2024 Awv declined Lab already ordered Dexa scheduled Care Gap Outreach Action Taken: Spoke to patient documented in this encounter Plan of Treatment Upcoming Encounters Date Type Department Care Team (Late st Contact Info) Description 09/06/2024 3:30 PM EST Office Visit Pulmonary Medicine, [address] [place] [address] Deep Frank [facility] [address] 10/31/2024 4:00 PM EDT Office Visit Family Medicine [address] [place] [phone] Cynthia Santiago MD [address] [place] [address] [place] [phone] 01/01/2025 2:30 PM EDT Cardiac Studies Cardiac Studies, [address] [place] [address] 01/09/2025 3:00 PM EDT Office Visit Pulmonary Medicine, [facility] [address] [facility] [place] [address] Deep Frank MD [address] [place] [address] 01/24/2025 2:20 PM EDT Office Visit Family Medicine [address] [place] [phone] Xaiver Zavala MD [address] [place] [address] [place] [address] 01/25/2025 2:30 PM EDT Office Visit Cardiology [address] [place] [address] Akshat Che PA-C [address] [facility] [place] [address] 02/27/2025 2:30 PM EDT Imaging Radiology [facility] [place] [phone] 03/05/2025 2:20 PM EDT Office Visit Dermatology [address] [place] [address] Lois Batista PA-C [address] [place] [address] [place] [address] 08/15/2025 2:20 PM EST Office Visit Family Medicine [address] [place] [phone] Xavier Zavala MD [address] [place] [address] [place] [address] Scheduled Orders Name Type Priority Associated Diagnoses Orde r Schedule DEXA SCAN/BONE MINERAL AXIAL Medical Imaging Routine Osteoporosis Expected: 08/30/2024, Expires: 08/30/2025 TSH WITH FREE T4 IF INDICATED Lab Routine Screening for thyroid disorder Expected: 10/17/2024, Expires: 08/30/2025 ALBUMIN / CREATININE RATIO, URINE Lab Routine Hypertension, unspecified type Expected: 10/17/2024 (Approximate), Expires: 08/30/2025 Health Maintenance Due Date Last Done Comments DTap/Tdap Vaccines (1 - Tdap) 1959 Adult Wellness Visit 2008 Zoster Vaccines (2 of 3) 07/14/2012 05/19/2012 *BISPHONATE OR OTHER ACCEPTABLE MEDICATION NEEDED FOR OSTEOPOROSIS (REFER TO SMARTSET #1146) 07/03/2022 CKD PHOS USE SMARTSET 38605 06/30/202306/18, 08/25/2021, 09/12/2020, Additional history exists COVID-19 Vaccine ( season) 2024 11/13/2020, 10/09/2020 GFR 04/20/2024 10/20/2023, 03/20, 01/07/2023, Additional history exists DXA Scan 08/03/2024 08/03/2022, 03/20, 02/04/2012 Albumin/Creatinine Ratio 10/19/2024 024, 06/30/2022, 08/25/2021, Additional history exists TSH 10/19/2024 10/20/2023, 12/18, 06/23/2021, Additional history exists CKD HGB USE SMARTSET 05563 07/23/202507/23, 07/22/2024, 07/21/2024, Additional history exists Depression Monitoring 07/26/2025 07/26/2024 Pneumococcal Vaccine: 50+ Years Completed 08/21/2014, 04/03/2011 Hepatitis B Vaccine Completed 12/09/2020, 08/01/2020, 06/07/2020 VITAMIN D LEVEL ONCE IN A LIFETIME-USE SMARTSET# [id number] Completed 06/30/2022, 08/25/2021, 01/16/2020, Additional history exists [...] as of this encounter Visit Diagnoses Diagnosis Osteoporosis- Primary Osteoporosis, unspecified Screening for thyroid disorder Hypertension, unspecified type documented in this encounter Care Teams Olive Knocker Relationship Specialty Start Date End Date Xavier Zavala MD [address] [place] [address] [place] [phone] PCP - General Family Medicine 04/28/21 documented as of this encounter
--- OUTSIDE RECORDS SUMMARY | 2024-11-06 08:57 | External Medical Summary | Summary of Care ---
Author Name Unknown Organization [facility] Address [address] [place] [address] Phone [phone] Care Team Providers Care Field Merchandiser Name Role Phone Xavier Zavala MD Primary Care Provide r Reason for Visit * Reason Onset Date Comments Order Request 09/05/2024 Oxygen Encounter Details Date Type Department Care Team (Late st Contact Info) Description 09/05/2024 Telephone Pulmonary Medicine, [facility] [place] [address] Deep Frank MD [address] [facility] [phone] Order Request (Oxygen ) Allergies Active Allergy Reactions Criticality Noted [...] persistent asthma without complication 2.5 mg NEBULIZER [id number] 07/22/2018 Active documented as of this encounter [...] Encounter - Marta Trejo LPN - 09/05/2024 9:55 AM EST These orders placed to TH. * Telephone Encounter - Marta Trejo LPN - 09/05/2024 9:55 AM EST ----- Message from Deep Frank MD sent at 09/05/2024 7:47 AM EST ----- 6 MWT was POSITIVE for HYPOXIA during AMBULATION. Oxygen therapy for use during exercise ordered. Please ensure processing of Oxygen therapy order. 3 LPM nasal cannula oxygen ordered for rest and activity. documented in this encounter Plan of Treatment Upcoming Encounters Date Type Department Care Team (Late st Contact Info) Description 09/06/2024 3:30 PM EST Office Visit Pulmonary Medicine, [address] [place] [address] Deep Frank MD [facility] [place] [address] 10/31/2024 4:00 PM EDT Office Visit Family Medicine [address] [place] [phone] Cynthia Santiago MD [address] [place] [address] [place] [phone] 01/01/2025 2:30 PM EDT Cardiac Studies Cardiac Studies, [facility] [address] [facility] [place] [address] 01/09/2025 3:00 PM EDT Office Visit Pulmonary Medicine, [facility] [address] [facility] [place] [address] Deep Frnak MD [address] [place] [address] 01/24/2025 2:20 PM EDT Office Visit Family Medicine [address] [place] [phone] Xavier Zavala MD [address] [place] [address] [place] [address] 01/25/2025 2:30 PM EDT Office Visit Cardiology [address] [place] [address] Akshat Che PA-C [address] [place] [address] 02/27/2025 2:30 PM EDT Imaging Radiology [facility] [address] [place] [phone] 03/05/2025 2:20 PM EDT Office Visit Dermatology [address] [place] [address] Lois Batista PA-C [address] [place] [address] [place] [address] 08/15/2025 2:20 PM EST Office Visit Family [address] [place] [phone] Xavier Zavala MD [address] [place] [address] [place] [address] Health Maintenance Due Date Last Done Comments DTap/Tdap Vaccines (1 - Tdap) 1959 Adult Wellness Visit 2008 Zoster Vaccines (2 of 3) 07/14/2012 05/19/2012 *BISPHONATE OR OTHER ACCEPTABLE MEDICATION NEEDED FOR OSTEOPOROSIS (REFER TO SMARTSET #1146) 07/03/2022 CKD PHOS USE SMARTSET 92198 06/30/202306/18, 08/25/2021, 09/12/2020, Additional history exists COVID-19 Vaccine ( season) 2024 11/13/2020, 10/09/2020 GFR 04/20/2024 10/20/2023, 03/20, 01/07/2023, Additional history exists DXA Scan 08/03/2024 08/03/2022, 03/20, 02/04/2012 Albumin/Creatinine Ratio 10/19/2024 024, 06/30/2022, 08/25/2021, Additional history exists TSH 10/19/2024 10/20/2023, 12/18, 06/23/2021, Additional history exists CKD HGB USE SMARTSET 44728 07/23/202507/23, 07/22/2024, 07/21/2024, Additional history exists Depression Monitoring 07/26/2025 07/26/2024 Pneumococcal Vaccine: 50+ Years Completed 08/21/2014, 04/03/2011 Hepatitis B Vaccine Completed 12/09/2020, 08/01/2020, 06/07/2020 VITAMIN D LEVEL ONCE IN A LIFETIME-USE SMARTSET# [id number] Completed 06/30/2022, 08/25/2021, 01/16/2020, Additional history exists [...] filedocumented as of this encounter Care Teams Field Merchandiser Relationship Specialty Start Date End Date Xavier Zavala MD [address] [place] [address] [place] [phone] PCP - General Family Medicine 04/28/21 documented as of this encounter
--- OUTSIDE RECORDS SUMMARY | 2024-11-06 08:57 | External Medical Summary | Summary of Care ---
Author Name Unknown Organization [facility] Address [address] [place] [address] Phone [phone] Care Team Providers Care Enterprise Applications Manager Name Role Phone Xavier Zavala MD Primary Care Provide r Encounter Details Date Type Department Care Team (Late st Contact Info) Description 09/05/2024 Orders Only Pulmonary Function Lab, [facility] [address] [place] [address] Deep Frank MD [facility] [address] Chronic respiratory failure with hypoxia (HCC)* Allergies Active Allergy Reactions Criticality Noted Date [...] Tablet (Lopressor)Indicat ions:HTN, goal below 140/90 TAKE 2 TABLET TWICE DAILY 90 Tablet 1 05/05/20 [...] persistent asthma without complication 2.5 mg NEBULIZER [id number] 07/22/2018 Active documented as of this encounter [...] emilie e documented as of this encounter Plan of Treatment Upcoming Encounters Date Type Department Care Team (Late st Contact Info) Description 09/06/2024 3:30 PM EST Office Visit Pulmonary Medicine, [facility] 132 [facility] [place] [address] Deep Frank MD [address] [place] [address] 10/31/2024 4:00 PM EDT Office Visit Family Medicine [address] [phone] Cynthia Santiago MD [address] [place] [address] [place] [phone] 01/01/2025 2:30 PM EDT Cardiac Studies Cardiac Studies, [facility] 132 [facility] [place] [address] 01/09/2025 3:00 PM EDT Office Visit Pulmonary Medicine, [facility] [address] [facility] [place] [address] Deep Frank [place] [address] [place] [address] 01/24/2025 2:20 PM EDT Office Visit Family Medicine [address] [phone] Xavier Zavala MD [address] [place] [address] [place] [address] 01/25/2025 2:30 PM EDT Office Visit Cardiology [address] [place] [address] Akshat Che PA-C [address] [facility] [place] [address] 02/27/2025 2:30 PM EDT Imaging Radiology [facility] [address] [place] [phone] 03/05/2025 2:20 PM EDT Office Visit Dermatology [address] [place] [address] Lois Batista PA-C [address] [place] [address] [place] [address] 08/15/2025 2:20 PM EST Office Visit Family Medicine [address] [place] [phone] Xavier Zavala MD [address] [place] [address] [place] [address] Health Maintenance Due Date Last Done Comments DTap/Tdap Vaccines (1 - Tdap) 1959 Adult Wellness Visit 2008 Zoster Vaccines (2 of 3) 07/14/2012 05/19/2012 *BISPHONATE OR OTHER ACCEPTABLE MEDICATION NEEDED FOR OSTEOPOROSIS (REFER TO SMARTSET #1146) 07/03/2022 CKD PHOS USE SMARTSET 30156 06/30/202306/18, 08/25/2021, 09/12/2020, Additional history exists COVID-19 Vaccine ( season) 2024 11/13/2020, 10/09/2020 GFR 04/20/2024 10/20/2023, 03/20, 01/07/2023, Additional history exists DXA Scan 08/03/2024 08/03/2022, 03/20, 02/04/2012 Albumin/Creatinine Ratio 10/19/2024 024, 06/30/2022, 08/25/2021, Additional history exists TSH 10/19/2024 10/20/2023, 12/18, 06/23/2021, Additional history exists CKD HGB USE SMARTSET 68425 07/23/202507/23, 07/22/2024, 07/21/2024, Additional history exists Depression Monitoring 07/26/2025 07/26/2024 Pneumococcal Vaccine: 50+ Years Completed 08/21/2014, 04/03/2011 Hepatitis B Vaccine Completed 12/09/2020, 08/01/2020, 06/07/2020 VITAMIN D LEVEL ONCE IN A LIFETIME-USE SMARTSET# [id number] Completed 06/30/2022, 08/25/2021, 01/16/2020, Additional history exists [...] as of this encounter Visit Diagnoses Diagnosis Chronic respiratory failure with hypoxia (HCC)- Primary Chronic respiratory failure documented in this encounter Care Teams Enterprise Applications Manager Relationship Specialty Start Date End Date Xavier Zavala MD [address] [place] [address] [place] [phone] PCP - General Family Medicine 04/28/21 documented as of this encounter
--- OUTSIDE RECORDS SUMMARY | 2024-11-06 08:57 | External Medical Summary | Summary of Care ---
Author Name Unknown Organization [facility] Address [address] [place] [address] Phone [phone] Care Team Providers Care Sales Merchandise Associate Name Role Phone Xavier Zavala MD Primary Care Provide r Reason for Visit * Reason Comments Follow Up Return pulm. Asthma. Nocturnal hypoxia. Encounter Details Date Type Department Care Team (Late st Contact Info) Description 09/06/2024 3:30 PM EST Office Visit Pulmonary Medicine, [facility] [address] [place] [address] Deep Frank MD [address] [facility] [place] [address] Chronic respiratory failure with hypoxia (HCC)*; Hiatal hernia Allergies Active Allergy Reactions Criticality Noted Date [...] as of this encounter (statuses as of 09/07/2024) Medications home oxygen/equipment IN GAS Inhale 3 [...] Dosing Unit 3 09/06/19 25 025 Active Trelegy Ellipta 200-62.5-25 MCG/ACT Aerosol Powder Breath Activated (Fluticasone-Umecl idinium-Vilanterol )Indications:Mild persistent asthma without complication Inhale 1 Puff by mouth in the morning. 60 Blister Dosing Unit 1 10/ 025 Discontin ued(Medic ation/Dos e Changed) Hospital, Clinic, or Other Facility Administered Medication Ordered Dose Route Frequency Start Date End Date Status albuterol sulfate (PROVENTIL) (2.5 MG/3ML) 0.083% inhalation solution 2.5 mgIndications:Moderate persistent asthma without complication 2.5 mg NEBULIZER [id number] 07/22/2018 Active documented as of this encounter (statuses as of 09/07/2024) Active Problems Problem Noted Date Diagnosed Date [...] as of this encounter (statuses as of 09/07/2024) Resolved Problems Problem Noted Date Diagnosed Date [...] as of this encounter (statuses as of 09/07/2024) Immunizations Name Administration Dates Next Due COVID-19, [...] Tobacco: Former Cigarettes 0.3 12 0 07/19/1958 1970 Smokeless Tobacco: Never Alcohol Use Standard [...] emilie e documented as of this encounter Last Filed Vital Signs Vital Sign Reading Time Taken Comments Blood Pressure 110/60 09/06/2024 3:23 PM EST Pulse 79 09/06/2024 3:23 PM EST Temperature 36.6 °C (97.9 °F) 09/06/2024 3:23 PM ES T Respiratory Rate 16 09/06/2024 3:23 PM EST Oxygen Saturation 89% 09/06/2024 3:24 PM EST O2 3L -amb Inhaled Oxygen Concentration - - Weight 126.6 kg (279 lb) 09/06/2024 3:23 PM EST Height 156.7 cm (5' 1.7") 09/06/2024 3:23 PM EST Body Mass Index 51.53 09/06/2024 3:23 PM EST documented in this encounter Progress Notes * Deep Frank MD - 09/06/2024 3:30 PM EST Images from the original note were not included. 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 Remote 3 pack-year smoking history quit more than 40 years ago Multifactorial dyspnea with Exertional hypoxia (on 2 LPM oxygen with activity) Large hiatal hernia noted on chest x-ray 09/2022 Kwagcdzo-ob-qkusfv aortic stenosis and aortic regurgitation Ascending aortic aneurysm noted on 2020 CT chest Hypertension Hyperlipidemia Obesity, BMI 50.96 Congestive heart failure CKD DJD Hx of Macular degeneration Physical Examination: Alert, awake, no distress Class 3 throat No JVD Adeq Air entry in all lung solis, scattered rales, no dullness S1, S2, no murmur Soft nontender abdomen No LE Edema Nonlateralizing Neuro Exam Component Latest Ref Rng 07/31/2024 BNP, NT-Pro <300 pg/mL 784 (H) 6 MWT: Positive for resting and exertional hypoxia, requiring 3 LPM oxygen for rest/activity Assessment Multifactorial dyspnea with primary cardiac risk factors (Moderate to severe / AR), large hiatalhernia, restrictive lung disease (likley related to hiatal hernia/BMI) noted on PFT along with evidence of exertional hypoxia Obesity, BMI 50.96 Deconditioning Continue with home oxygen at 3 LPM continuous Diuresis per Cardiology management plan TAVR evaluation per Cardiology management plan Avoid sick contacts Maintain Physical Activity Status Call with Change in resp symptom status F/u 6 months Follow Up: Return in about 6 months (around 03/06/2025) for Clinic Visit. | For: Clinic Visit | Check-out note: Multifactorial dyspnea with primary cardiac risk factors (Moderate to severe / AR), large hiatal hernia, restrictive lung disease (likley related to hiatal hernia/BMI) noted on PFT along with evidence of exertional hypoxia Obesity, BMI 50.96 Deconditioning Continue with home oxygen at 3 LPM continuous Diuresis per Cardiology management plan TAVR evaluation per Cardiology management plan Avoid sick contacts Maintain Physical Activity Status Call with Change in resp symptom status F/u Follow Up: Return in about 6 months (around 03/06/2025) for Clinic Visit. | For: Clinic Visit | Check-out note: 6 months I spent a total of 30-39 minutes (exact time 35 mins) on the date of service in preparation, delivery, and documentation of the care provided to Kandi Spivey excluding any time spent in the performance of separately billed services or time spent by another provider/QHP. Deep Frank MD Data review: Following reports, and data as outlined below was personally reviewed and interpreted by myself. CT Chest 07/2024 [facility] Large hiatal hernia, elevated left hemidiaphragm and compressive atelectasis left lung base. CT Chest 03/2023 [facility] Large hiatal hernia, elevated left hemidiaphragm and compressive atelectasis left lung base. 6 MWT was POSITIVE for HYPOXIA during AMBULATION. Oxygen therapy for use during exercise ordered. Please ensure processing of Oxygen therapy order. 3 LPM nasal cannula oxygen ordered for rest and activity. Nocturnal pulse oximetry study showed episodes of significant drops in oxygen levels through the night. We would recommend use of 3 LPM oxygen therapy while sleeping at night. Subjective CC: Chief Complaint Patient presents with Follow Up Return pulm. Asthma. Nocturnal hypoxia. HPI: Nursing Notes: Marta Trejo LPN 09/06/24 1531 Signed Chief Complaint Patient presents with Follow Up Return pulm. Asthma. Nocturnal hypoxia. Patient-Entered [facility] 2019 Msp: Part I And Employment Question 09/06/2024 3:05 PM EST - Filed by Patient Are you currently employed? No, Retired Date of long-term: 07/19/2001 Do you have a spouse who is currently employed? No, Not (single, , ) Medicare requires that we periodically ask the following questions. Are you receiving benefits under the Black Lung Benefits Act (BL)? No Was the illness/injury due to a work-related accident/condition? No Are you receiving treatment for an injury or illness covered under no-fault (and/or medical-paymentcoverage) including premises or automobile? No Are you receiving treatment for an injury, or illness, for which another alliance party may be liable? No Are you entitled to Medicare based on: Age? Yes End-stage renal disease (ESRD)? No Patient-Entered Msp: Ocp-Nzsbrwaypd-Awfg Primary Branch Calculation (range: 0 - 5) 1 Do you have group health plan (GHP) coverage based on your own current employment or the employmentof your spouse? No Travel Screening Question 09/06/2024 3:05 PM EST - Filed by Patient Do you have any of the following new or worsening symptoms? None of these Have you recently been in contact with someone who was sick? No / Unsure Myc Visit Accident Related Question Question 09/06/2024 3:05 PM EST - Filed by Patient Is this visit related to an accident? (i.e work, motor vehicle) No Asthma Control Test Question 09/06/2024 3:22 PM EST - Filed by Marta Trejo LPN Please select the best response to the five questions below, by clicking the appropriate option button. In the past 4 weeks, how much of the time did your asthma keep you from getting as much done at work, school or at home? (5) None of the time During the past 4 weeks, how often have you had shortness of breath? (5) Not at all During the past 4 weeks, how often did your asthma symptoms (wheezing, coughing, shortness of breath, chest tightness or pain) wake you up at night or earlier than usual in the morning? (5) Not at all During the past 4 weeks, how often have you used your rescue inhaler or nebulizer medication (such as albuterol)? (2) 1 or 2 times per day How would you rate your asthma control during the past 4 weeks? (5) Completely controlled Total ACT Adult Score (range: 5 - 25) 22 (Well Controlled) Total ACT Child Score (range: 0 - 27) Incomplete Interm History/Respiratory Symptoms Cough: yes-clear phlegm. Hemoptysis: no Sinus Symptoms: yes-drainage Hospitalizations: no ED Trips: no Triggers: no Nocturnal: sleeps with head elevated CPAP/BiPAP/O2: O2 3L at night DME Supplier: [facility] Flu Vaccine: 2023 Pneumovax: 2010 Prevnar: 2014 COVID 19: x2. MMRC Dyspnea Scale = 1 (I get short of breath when hurrying on level ground or walking up a slight hill) Objective Filed Vitals: 09/06/24 1523 09/06/24 1524 BP: 110/60 Pulse: 79 Resp: 16 Temp: 36.6 °C (97.9 °F) TempSrc: Tympanic SpO2: 91% 89% Weight: 126.6 kg (279 lb) Height: 1.567 m (5' 1.7") Exam: Const: No signs of acute distress present. Head/Face: Normal on inspection. Eyes: Conjunctivae clear. Pupils equal round and reactive to light. ENMT: Oropharynx: No erythema, exudate or masses. Posterior pharynx is normal. Neck: Supple and symmetric. Resp: Respiratory examination as outlined above CV: Rate is regular. Rhythm is regular. No heart murmur appreciated. Extremities: No edema of the lower limbs bilaterally. Skin: Skin is warm and dry. Neuro: Coordination normal. No involuntary movement. Psych: Patient's attitude is cooperative. Mood is normal. Affect is normal. Tests reviewed with the patient: No imaging results in the last 6 months Available Radiologic data was reviewed by me in PACS. The images were shown to the patient and findings were discussed with the patient. HOME MEDICATIONS: Trelegy Ellipta 100-62.5-25 MCG/ACT Aerosol Powder Breath Activated (Iwvmlsvryxf-Jbeumdhfxtgz-Vkfzrecsci) amLODIPine Besylate 10 MG Oral Tablet (Norvasc) Lisinopril 40 MG Oral Tablet Allopurinol 100 MG Oral Tablet (Zyloprim) Pregabalin 100 MG Oral Capsule (Lyrica) Vitamin C 500 MG Oral Tablet (Ascorbic Acid) Omeprazole 40 MG Oral Capsule Delayed Release (PriLOSEC) DULoxetine HCl 30 MG Oral Capsule Delayed Release Particles (Cymbalta) Levothyroxine Sodium 150 MCG Oral Tablet (Levoxyl) Metoprolol Tartrate 25 MG Oral Tablet (Lopressor) Montelukast Sodium 10 MG Oral Tablet (Singulair) Furosemide 20 MG Oral Tablet (Lasix) Macular Health Formula Oral Capsule predniSONE 5 MG Oral Tablet (Deltasone) Vitron-C 65-125 MG Oral Tablet (Iron-Vitamin C 65-125 mg per tab) Atorvastatin Calcium 10 MG Oral Tablet (Lipitor) Albuterol Sulfate HFA 108 (90 Base) MCG/ACT Inhalation Aerosol Solution Docusate Sodium 100 MG Oral Capsule (Colace) Senna 8.6 MG Oral Capsule Tylenol PM Extra Strength 500-25 MG Oral Tablet (diphenhydrAMINE-APAP (sleep)) home oxygen/equipment IN GAS Restasis 0.05 % Ophthalmic Emulsion albuterol sulfate (PROVENTIL) (2.5 MG/3ML) 0.083% inhalation solution 2.5 mg ROS: No reported history of Hemoptysis, Hematemesis, Melena No reported history of Dysuria, Hematuria, Flank Pain No reported history of chronic headache, seizures No reported history of Fall or trauma . No reported history of recent change in weight or appetite. Past Medical History: Diagnosis Date Acquired hypothyroidism Arthritis of knee Ascending aorta enlargement (HCC) 10/14/2022 Chronic hypoxemic respiratory failure (HCC) 10/20/2023 Diverticulosis of colon 04/15/2011 DVT (deep venous thrombosis) ([facility]) 2011 LLE--following knee replacement Dyslipidemia, goal LDL below 100 01/03/2016 Elevated plasma metanephrines 02/12/2014 Esophagitis, unspecified Hiatal hernia Large Hypertensive heart failure (HCC) Hypertensive kidney disease with chronic kidney disease stage III ([facility]) 04/03/2019 Mild persistent asthma 05/31/2019 Moderate episode of recurrent major depressive disorder ([facility]) 01/22/2020 Morbid obesity with body mass index of 50.0-59.9 in adult ([facility]) 06/30/2018 Other specified acquired hypothyroidism [...] EGD, FLEXIBLE, DIAGNOSTIC 11/22/2018 hiatal hernia / [facility] EXPLORATION OF ABDOMEN x 3 LIGATE/CUT OVIDUCT(S) 1972 MAMMOGRAM SCREENING BILATERAL 03/13/2014 almost entirely fat, category 1 normal OTHER (INFORMATION) 1973 knee surgery OTHER (INFORMATION) 10/19/2011 L knee replacement REMOVE GALLBLADDER 1971 REMOVE TONSILS & ADENOIDS, UNDER 12 TENDON SHEATH INCISION, FINGER Right 10/19/2017 TOTAL ABD HYSTERECTOMY W/WO REMOVAL OF TUBE(S) 1985 TOTAL HYSTERECTOMY Social History Socioeconomic History Marital status: Occupational History 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 (Adult - for ages 18 years and over): No Food Insecurity: No Food Insecurity (07/26/2024) Food Insecurity Worried About Running Out of Food in the Last Year: Never true Ran Out of Food in the Last Year: Never true Do you need food for this week? (Adult - for ages 18 years and over): No Transportation Needs: No Transportation Needs (07/26/2024) Transportation Needs Has lack of transportation kept you from medical appointments, meetings, work, or from getting things needed for daily living? Check all that apply. (Adult - for ages 18 years and over): No Social Connections: Socially Integrated (07/26/2024) Social Connections How often do you feel lonely or isolated from those around you? (Adult - for ages 18 years and over): Never Housing Stability: Low Risk (07/26/2024) Housing Stability Do you currently live in a jail or have no steady place to sleep at night? (Adult - for ages 18 years and over): No Are you homeless or worried that you might be in the future? (Adult - for ages 18 years and over): No Family History Problem Relation Name Age of Onset Arthritis Father at age 26 ? arthritis ? Heart Disorder Mother CHF Cancer Mother bladder and lung Other (chf) Mother Lung Disorder Aunt (Unspecified) Cancer Brother prostate No Past Hx Sister No Past Hx Sister Cancer Uncle (Unspecified) prostate/bone Heart disease Son Heart disease Son Review of patient's allergies indicates: Allergen Reactions Actonel [Bisphosphonates] Hives, Other (Please comment) and Rash Dysphagia Aminoquinolines Hives Iodinated Contrast Media Dilaudid [Hydromorphone Hcl] Unknown Gabapentin Hives Imuran [Azathioprine Sodium] Hives Methotrexate Hives Minocycline Hcl Hives Norvasc [Calcium Channel Blockers] Unknown Nsaids Hives Luflunomide also causes hives Parathyroid Hormone (Recomb) Edema Other and Other (Please comment) General malaise Lower extremity edema documented in this encounter Nursing Notes * Marta Trejo LPN - 09/06/2024 3:26 PM EST Chief Complaint Patient presents with Follow Up Return pulm. Asthma. Nocturnal hypoxia. Patient-Entered [facility] 2019 Msp: Part I And Employment Question 09/06/2024 3:05 PM EST - Filed by Patient Are you currently employed? No, Retired Date of long-term: 07/19/2001 Do you have a spouse who is currently employed? No, Not (single, , ) Medicare requires that we periodically ask the following questions. Are you receiving benefits under the Black Lung Benefits Act (BL)? No Was the illness/injury due to a work-related accident/condition? No Are you receiving treatment for an injury or illness covered under no-fault (and/or medical-paymentcoverage) including premises or automobile? No Are you receiving treatment for an injury, or illness, for which another alliance party may be liable? No Are you entitled to Medicare based on: Age? Yes End-stage renal disease (ESRD)? No Patient-Entered Msp: Cty-Bhchcvgkrk-Uztz Primary Branch Calculation (range: 0 - 5) 1 Do you have group health plan (GHP) coverage based on your own current employment or the employmentof your spouse? No Travel Screening Question 09/06/2024 3:05 PM EST - Filed by Patient Do you have any of the following new or worsening symptoms? None of these Have you recently been in contact with someone who was sick? No / Unsure Myc Visit Accident Related Question Question 09/06/2024 3:05 PM EST - Filed by Patient Is this visit related to an accident? (i.e work, motor vehicle) No Asthma Control Test Question 09/06/2024 3:22 PM EST - Filed by Marta Trejo LPN Please select the best response to the five questions below, by clicking the appropriate option button. In the past 4 weeks, how much of the time did your asthma keep you from getting as much done at work, school or at home? (5) None of the time During the past 4 weeks, how often have you had shortness of breath? (5) Not at all During the past 4 weeks, how often did your asthma symptoms (wheezing, coughing, shortness of breath, chest tightness or pain) wake you up at night or earlier than usual in the morning? (5) Not at all During the past 4 weeks, how often have you used your rescue inhaler or nebulizer medication (such as albuterol)? (2) 1 or 2 times per day How would you rate your asthma control during the past 4 weeks? (5) Completely controlled Total ACT Adult Score (range: 5 - 25) 22 (Well Controlled) Total ACT Child Score (range: 0 - 27) Incomplete Interm History/Respiratory Symptoms Cough: yes-clear phlegm. Hemoptysis: no Sinus Symptoms: yes-drainage Hospitalizations: no ED Trips: no Triggers: no Nocturnal: sleeps with head elevated CPAP/BiPAP/O2: O2 3L at night DME Supplier: [facility] Flu Vaccine: 2023 Pneumovax: 2010 Prevnar: 2014 COVID 19: x2. MMRC Dyspnea Scale = 1 (I get short of breath when hurrying on level ground or walking up a slight hill) documented in this encounter Plan of Treatment Upcoming Encounters Date Type Department Care Team (Late st Contact Info) Description 10/31/2024 4:00 PM EDT Office Visit Family [address] [phone] Cynthia Santiago MD [address] [place] [address] [place] [phone] 01/01/2025 2:30 PM EDT Cardiac Studies Cardiac Studies, [address] [place] [address] 01/09/2025 3:00 PM EDT Office Visit Pulmonary Medicine, [address] [place] [address] Deep Frank MD [address] [place] [address] [place] [address] 01/24/2025 2:20 PM EDT Office Visit Family [address] [phone] Xavier Zavala MD [address] [place] [address] [place] [address] 01/25/2025 2:30 PM EDT Office Visit Cardiology [address] [place] [address] Akshat Che PA-C [address] [place] [address] 02/27/2025 2:30 PM EDT Imaging Radiology [facility] [address] [place] [phone] 03/05/2025 2:20 PM EDT Office Visit Dermatology [address] [place] [address] Lois Batista PA-C [address] [place] [address] [place] [phone] 08/15/2025 2:20 PM EST Office Visit Family Medicine [address] [place] [phone] Xavier Zavala MD [address] [place] [address] [place] [id number] Health Maintenance Due Date Last Done Comments DTap/Tdap Vaccines (1 - Tdap) 1961 Adult Wellness Visit 2008 Zoster Vaccines (2 of 3) 07/14/2012 05/19/2012 *BISPHONATE OR OTHER ACCEPTABLE MEDICATION NEEDED FOR OSTEOPOROSIS (REFER TO SMARTSET #1146) 07/03/2022 CKD PHOS USE SMARTSET 58920 06/30/202306/18, 08/25/2021, 09/12/2020, Additional history exists COVID-19 Vaccine ( season) 2024 11/13/2020, 10/09/2020 GFR 04/20/2024 10/20/2023, 03/20, 01/07/2023, Additional history exists DXA Scan 08/03/2024 08/03/2022, 03/20, 02/04/2012 Albumin/Creatinine Ratio 10/19/2024 024, 06/30/2022, 08/25/2021, Additional history exists TSH 10/19/2024 10/20/2023, 12/18, 06/23/2021, Additional history exists CKD HGB USE SMARTSET 21069 07/23/202507/23, 07/22/2024, 07/21/2024, Additional history exists Depression Monitoring 07/26/2025 07/26/2024 Pneumococcal Vaccine: 50+ Years Completed 08/21/2014, 04/03/2011 Hepatitis B Vaccine Completed 12/09/2020, 08/01/2020, 06/07/2020 VITAMIN D LEVEL ONCE IN A LIFETIME-USE SMARTSET# 99052 Completed 06/30/2022, 08/25/2021, 01/16/2020, Additional history exists [...] with hypoxia (HCC)- Primary Chronic respiratory failure Hiatal hernia Diaphragmatic hernia without mention of obstruction or gangrene documented in this encounter Care Teams Sales Merchandise Associate Relationship Specialty Start Date End Date Xavier Zavala MD [address] [place] [address] [place] [id number] PCP - General Family Medicine 04/28/21 documented as of this encounter
--- OUTSIDE RECORDS SUMMARY | 2024-11-06 08:58 | External Medical Summary | Summary of Care ---
Author Name Unknown Organization [facility] Address [address] [place] [address] Phone [phone] Care Team Providers Care Construction Project Manager Name Role Phone Xavier Zavala MD Primary Care Provide r Reason for Visit * Reason Comments eRx-Medication Refill Encounter Details Date Type Department Care Team (Late st Contact Info) Description 08/24/2024 Refill Family Medicine [address] [phone] Xavier Zavala MD [address] [place] [address] [place] [address] Chronic gout due to renal impairment of multiple sites without tophus Allergies Active Allergy Reactions Criticality Noted Date [...] as of this encounter (statuses as of 08/25/2024) Medications home oxygen/equipment IN GAS Inhale 3 [...] Reported on 08/02/2024 Senna 8.6 MG Oral CapsuleIndication s:Constipation, unspecified [...] Tablet by mouth in the morning. Active Lisinopril 40 MG Oral Tablet Take 1 Tablet by mouth in the morning. Active Pregabalin 100 MG Oral Capsule (Lyrica) Take 1 Capsule by mouth every evening. 025 Active amLODIPine Besylate 10 MG Oral Tablet (Norvasc) Take 1 Tablet by mouth in the morning. 025 Active Allopurinol 100 MG Oral Tablet (Zyloprim)Indicat ions:Chronic gout due to renal impairment of multiple sites without tophus TAKE TWO TABLETS IN THE MORNING 180 Tablet 025 Active Allopurinol 100 MG Oral Tablet (Zyloprim)Indicat ions:Chronic gout due to renal impairment of multiple sites without tophus Take 2 Tablets by mouth in the morning. 180 Tablet 4 024 2024 Discontinued Hospital, Clinic, or Other Facility Administered Medication Ordered Dose Route Frequency Start Date End Date Status albuterol sulfate (PROVENTIL) (2.5 MG/3ML) 0.083% inhalation solution 2.5 mgIndications:Moderate persistent asthma without complication 2.5 mg NEBULIZER [id number] 07/22/2018 Active documented as of this encounter (statuses as of 08/25/2024) Active Problems Problem Noted Date Diagnosed Date [...] as of this encounter (statuses as of 08/25/2024) Resolved Problems Problem Noted Date Diagnosed Date [...] as of this encounter (statuses as of 08/25/2024) Immunizations Name Administration Dates Next Due COVID-19, [...] the money to buy more. Never true 01/08/20 25 Within the past 12 months, t [...] encounter Miscellaneous Notes * Telephone Encounter - Lucrecia Garcia RPh - 08/25/2024 9:35 AM ESTSigned Prescriptions: Disp Refills Allopurinol 100 MG Oral Tablet (Zyloprim) 180 Ta*0 Sig: TAKE TWOTABLETS IN THE MORNINGAuthorizing Provider: Elena ZAVALA User: LUCRECIA GARCIA * Telephone Encounter - Lucrecia Garcia RPh - 08/25/2024 9:33 AM EST RX authorized for this fill only as pt is due for visit/labs . Zero additional refills given until upcoming appt. 10/31/2024 Thank you, Lucrecia Garcia, PharmD Clinical Pharmacist [facility]) 08/25/24 9:33 AM [phone] documented in this encounter Plan of Treatment Upcoming Encounters Date Type Department Care Team (Late st Contact Info) Description 09/14/2024 3:00 PM EST Office Visit Pulmonary Medicine, [address] [place] [address] Deep Frank MD [address] [place] [phone] 10/31/2024 4:00 PM EDT Office Visit Family Medicine [address] [place] [phone] Cynthia Santiago MD [address] [place] [address] [place] [phone] 01/01/2025 2:30 PM EDT Cardiac Studies [facility] [place] [address] 01/09/2025 3:00 PM EDT Office Visit Pulmonary Medicine, [facility] [place] [address] Deep Frank MD [address] [facility] [place] [address] 01/24/2025 2:20 PM EDT Office Visit Family [address] [place] [phone] Xavier Zavala MD [address] [place] [address] [place] [address] 01/25/2025 2:30 PM EDT Office Visit Cardiology [address] [place] [address] Akshat Che PA-C [address] [facility] [place] [address] 03/05/2025 2:20 PM EDT Office Visit Dermatology [address] [place] [address] Lois Batista PA-C [address] [place] [address] [place] [address] 08/15/2025 2:20 PM EST Office Visit Family Medicine [address] [place] [phone] Xavier Zavala MD [address] [place] [address] [place] [address] Health Maintenance Due Date Last Done Comments DTap/Tdap Vaccines (1 - Tdap) 1959 Adult Wellness Visit 2008 Zoster Vaccines (2 of 3) 07/14/2012 05/19/2012 *BISPHONATE OR OTHER ACCEPTABLE MEDICATION NEEDED FOR OSTEOPOROSIS (REFER TO SMARTSET #1146) 07/03/2022 CKD PHOS USE SMARTSET 60278 06/30/202306/18, 08/25/2021, 09/12/2020, Additional history exists COVID-19 Vaccine ( season) 2024 11/13/2020, 10/09/2020 GFR 04/20/2024 10/20/2023, 03/20, 01/07/2023, Additional history exists DXA Scan 08/03/2024 08/03/2022, 03/20, 02/04/2012 Albumin/Creatinine Ratio 10/19/2024 024, 06/30/2022, 08/25/2021, Additional history exists TSH 10/19/2024 10/20/2023, 12/18, 06/23/2021, Additional history exists CKD HGB USE SMARTSET 37262 07/23/202507/23, 07/22/2024, 07/21/2024, Additional history exists Depression Monitoring 07/26/2025 07/26/2024 Pneumococcal Vaccine: 50+ Years Completed 08/21/2014, 04/03/2011 Hepatitis B Vaccine Completed 12/09/2020, 08/01/2020, 06/07/2020 VITAMIN D LEVEL ONCE IN A LIFETIME-USE SMARTSET# 97700 Completed 06/30/2022, 08/25/2021, 01/16/2020, Additional history exists [...] of this encounter Visit Diagnoses Diagnosis 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
--- OUTSIDE RECORDS SUMMARY | 2024-11-06 08:58 | External Medical Summary | Summary of Care ---
Author Name Unknown Organization [facility] Address [address] [place] [address] Phone [phone] Care Team Providers Care Animator Name Role Phone Xavier Zavala MD Primary Care Provide r Encounter Details Date Type Department Care Team (Late st Contact Info) Description 07/31/2024 Telephone Family [address] [phone] Xavier Zavala MD [address] [place] [address] [place] [address] Allergies Active Allergy Reactions Criticality Noted Date [...] as of this encounter (statuses as of 08/01/2024) Medications Melatonin 5 MG Tablet Daily at [...] Patient taking differently:100 mg OralPRN, Reported on 08/01/2024 Senna 8.6 MG Oral CapsuleIndications :Constipation, unspecified [...] MORNING 90 Tablet 3 12/17/19 24 Active Additional Information Patient not taking.Reported on 08/01/2024 Furosemide 20 MG Oral Tablet (Lasix)Indications :Acute [...] Tablet by mouth in the morning. Active amLODIPine Besylate 5 MG Oral Tablet (Norvasc)Indicatio ns:HTN, goal below 140/90 TAKE ONE TABLET IN THE MORNING 90 Tablet 1 05/05/20 24 025 Discontin ued(Medic ation List Clean Up) Pregabalin 100 MG Oral Capsule (Lyrica)Indication s:Small fiber neuropathy TAKE ONE CAPSULE BY MOUTH IN THE MORNING AND TWO CAPSULES in the evening 270 Capsule 06/08/20 24 025 Discontin ued(Medic ation List Clean Up) Hospital, Clinic, or Other Facility Administered Medication Ordered Dose Route Frequency Start Date End Date Status albuterol sulfate (PROVENTIL) (2.5 MG/3ML) 0.083% inhalation solution 2.5 mgIndications:Moderate persistent asthma without complication 2.5 mg NEBULIZER [id number] 07/22/2018 Active documented as of this encounter (statuses as of 08/01/2024) Active Problems Problem Noted Date Diagnosed Date [...] as of this encounter (statuses as of 08/01/2024) Resolved Problems Problem Noted Date Diagnosed Date [...] as of this encounter (statuses as of 08/01/2024) Immunizations Name Administration Dates Next Due COVID-19, [...] No 07/26/2024 Does the household have a [facility] source of income? 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 Pharmacy was trying to see which meds because pt didn't know. Pharmacy said she will wait til after hospital follow up. Thanks, Ashley Hummel Adhesive Bonding Machine Operator [facility] 07/31/2024,11:54 AM documented in this encounter Plan of Treatment Upcoming Encounters Date Type Department Care Team (Late st Contact Info) Description 08/02/2024 12:00 PM EST Home Visit Care Coordination and Integration [address] [place] [address] [facility] Trimmer [address] [place] [address] 08/22/2024 2:30 PM EST PulmDiagnostic Pulmonary Function Lab, [facility] [address] [facility] [place] [address] [place], [place] [address] [facility] [place] [address] 09/14/2024 3:00 PM EST Office Visit Pulmonary Medicine, [facility] [address] [facility] [place] [address] Deep Frank MD [address] [place] [address] 01/01/2025 2:30 PM EDT Cardiac Studies Cardiac Studies, [facility] [address] [facility] [place] [address] 01/09/2025 3:00 PM EDT Office Visit Pulmonary Medicine, [facility] [address] [place] [address] Deep Frank MD [address] [place] [address] 01/24/2025 2:20 PM EDT Office Visit Family Medicine [address] [place] [phone] Xavier Zavala MD [address] [place] [address] [place] [address] 01/25/2025 2:30 PM EDT Office Visit Cardiology [address] [place] [address] Akshat Che PALuciano [address] [place] [address] 03/05/2025 2:20 PM EDT Office Visit Dermatology [address] [place] [address] Lois Batista PA-C [address] [place] [address] [place] [address] 08/15/2025 2:20 PM EST Office Visit Family Medicine [address] [place] [phone] Xavier Zavala MD [address] [place] [address] [place] [address] Health Maintenance Due Date Last Done Comments DTap/Tdap Vaccines (1 - Tdap) 1959 Adult Wellness Visit 2008 Zoster Vaccines (2 of 3) 07/14/2012 05/19/2012 *BISPHONATE OR OTHER ACCEPTABLE MEDICATION NEEDED FOR OSTEOPOROSIS (REFER TO SMARTSET #1146) 07/03/2022 CKD PHOS USE SMARTSET 37137 06/30/202306/18, 08/25/2021, 09/12/2020, Additional history exists COVID-19 Vaccine ( season) 2024 11/13/2020, 10/09/2020 GFR 04/20/2024 10/20/2023, 03/20, 01/07/2023, Additional history exists DXA Scan 08/03/2024 08/03/2022, 03/20, 02/04/2012 Albumin/Creatinine Ratio 10/19/2024 024, 06/30/2022, 08/25/2021, Additional history exists TSH 10/19/2024 10/20/2023, 12/18, 06/23/2021, Additional history exists CKD HGB USE SMARTSET 73782 07/23/202507/23, 07/22/2024, 07/21/2024, Additional history exists Depression Monitoring 07/26/2025 07/26/2024 Pneumococcal Vaccine: 50+ Years Completed 08/21/2014, 04/03/2011 Hepatitis B Vaccine Completed 12/09/2020, 08/01/2020, 06/07/2020 VITAMIN D LEVEL ONCE IN A LIFETIME-USE SMARTSET# 93008 Completed 06/30/2022, 08/25/2021, 01/16/2020, Additional history exists [...] filedocumented as of this encounter Care Teams Animator Relationship Specialty Start Date End Date Xavier Zavala MD [address] [place] [address] [place] [phone] PCP - General Family Medicine 04/28/21 documented as of this encounter
--- OUTSIDE RECORDS SUMMARY | 2024-11-06 08:58 | External Medical Summary | Summary of Care ---
Author Name Unknown Organization [facility] Address [address] [place] [address] Phone [phone] Care Team Providers Care Documentum Consultant Name Role Phone Xavier Zavala MD Primary Care Provide r Reason for Visit * Reason Comments Oxygen Assessment [address] Encounter Details Date Type Department Care Team (Latest Contact Info) Description 08/22/2024 2:30 PM EST PulmDiagnostic Pulmonary Function Lab, [facility] [address] [place] [address] [place], [address] [place] [address] Ascending aorta enlargement (HCC)*; Hiatal hernia Allergies Active Allergy Reactions [...] as of this encounter (statuses as of 08/23/2024) Medications home oxygen/equipment IN GAS Inhale 3 [...] by mouth in the morning. 07/31/19 25 Active Pregabalin 100 MG Oral Capsule (Lyrica) Take 1 Capsule by mouth every evening. 07/23/19 25 Active amLODIPine Besylate 10 MG Oral Tablet (Norvasc) Take 1 Tablet by mouth in the morning. 07/31/19 25 Active Hospital, Clinic, or Other Facility Administered Medication Ordered Dose Route Frequency Start Date End Date Status albuterol sulfate (PROVENTIL) (2.5 MG/3ML) 0.083% inhalation solution 2.5 mgIndications:Moderate persistent asthma without complication 2.5 mg NEBULIZER [id number] 07/22/2018 Active documented as of this encounter (statuses as of 08/23/2024) Active Problems Problem Noted Date Diagnosed Date [...] as of this encounter (statuses as of 08/23/2024) Resolved Problems Problem Noted Date Diagnosed Date [...] as of this encounter (statuses as of 08/23/2024) Immunizations Name Administration Dates Next Due COVID-19, [...] 07/26/2024 Does the household have a re lar source of income? (Household - for ages [...] Sign Reading Time Taken Comments Blood Pressure 128/72 08/22/2024 2:59 PM EST Pulse 60 08/22/2024 2:59 PM EST Temperature - - Respiratory Rate 18 08/22/2024 2:59 PM EST Oxygen Saturation 91% 08/22/2024 2:59 PM EST Inhaled Oxygen Concentration - - Weight 127 kg (280 lb 1.3 oz) 08/22/2024 2:59 PM EST Height 156.7 cm (5' 1.7") 08/22/2024 2:59 PM EST Body Mass Index 51.73 08/22/2024 2:59 PM EST documented in this encounter Nursing Notes * Lawrence Vieira RRT - 08/22/2024 3:50 PM EST Kandi Spivey was identified by name, Date of : (1940), and . Vitals were obtained for testing. Body mass index is 51.73 kg/m². Pt SPO2 was 87-88% on room air. HR 65. Pt placedon 3 liters pulse. Pt used own tank. Exercise oximetry performed on 3 liters for 6 minutes. Pt ambulated 720 feet/ 219 meters. No rest periods were required. Lowest SPO2 on 3 liters was 89%. documented in this encounter Plan of Treatment Upcoming Encounters Date Type Department Care Team (Late st Contact Info) Description 09/14/2024 3:00 PM EST Office Visit Pulmonary Medicine, [address] [place] [address] Deep Frank MD [address] [facility] [address] 10/31/2024 4:00 PM EDT Office Visit Family Medicine [address] [place] [phone] Cynthia Santiago MD [address] [place] [address] [place] [phone] 01/01/2025 2:30 PM EDT Cardiac Studies Cardiac Studies, [address] [place] [address] 01/09/2025 3:00 PM EDT Office Visit Pulmonary Medicine, [address] [place] [address] Deep Frank MD [address] [place] [address] 01/24/2025 2:20 PM EDT Office Visit Family Medicine [address] [place] [phone] Xavier Zavala MD [address] [place] [address] [place] [address] 01/25/2025 2:30 PM EDT Office Visit Cardiology [address] [place] [address] Akshat Che PA-C [address] [place] [address] 03/05/2025 2:20 PM EDT Office Visit Dermatology [address] [place] [address] Lois Batista PA-C [address] [place] [address] [place] [address] 08/15/2025 2:20 PM EST Office Visit Family Medicine [address] [place] [phone] Xavier Zavala MD [address] [place] [address] [place] [address] Health Maintenance Due Date Last Done Comments DTap/Tdap Vaccines (1 - Tdap) 1959 Adult Wellness Visit 2008 Zoster Vaccines (2 of 3) 07/14/2012 05/19/2012 *BISPHONATE OR OTHER ACCEPTABLE MEDICATION NEEDED FOR OSTEOPOROSIS (REFER TO SMARTSET #1146) 07/03/2022 CKD PHOS USE SMARTSET 71580 06/30/202306/18, 08/25/2021, 09/12/2020, Additional history exists COVID-19 Vaccine ( season) 2024 11/13/2020, 10/09/2020 GFR 04/20/2024 10/20/2023, 03/20, 01/07/2023, Additional history exists DXA Scan 08/03/2024 08/03/2022, 03/20, 02/04/2012 Albumin/Creatinine Ratio 10/19/2024 024, 06/30/2022, 08/25/2021, Additional history exists TSH 10/19/2024 10/20/2023, 12/18, 06/23/2021, Additional history exists CKD HGB USE SMARTSET 11781 07/23/202507/23, 07/22/2024, 07/21/2024, Additional history exists Depression Monitoring 07/26/2025 07/26/2024 Pneumococcal Vaccine: 50+ Years Completed 08/21/2014, 04/03/2011 Hepatitis B Vaccine Completed 12/09/2020, 08/01/2020, 06/07/2020 VITAMIN D LEVEL ONCE IN A LIFETIME-USE SMARTSET# [id number] Completed 06/30/2022, 08/25/2021, 01/16/2020, Additional history exists [...] as of this encounter Visit Diagnoses Diagnosis Ascending aorta enlargement (HCC)- Primary Other specified disorders of arteries and arterioles Hiatal hernia Diaphragmatic hernia without mention of obstruction or gangrene documented in this encounter Care Teams Documentum Consultant Relationship Specialty Start Date End Date Xavier Zavala MD [address] [place] [address] [place] [phone] PCP - General Family Medicine 04/28/21 documented as of this encounter
--- OUTSIDE RECORDS SUMMARY | 2024-11-06 08:58 | External Medical Summary | Summary of Care ---
Author Name Unknown Organization [facility] Address [address] [place] [address] Phone [phone] Care Team Providers Care Rn Geriatric Name Role Phone Xavier Zavala MD Primary Care Provide r Reason for Visit * Reason Onset Date Comments Hospital Follow-Up Hospital Follow-Up 08/01/2024 Encounter Details Date Type Department Care Team (Late st Contact Info) Description 08/01/2024 2:00 PM EST Office Visit Family Medicine [address] [place] [phone] Cynthia Santiago MD [address] [place] [address] [place] [phone] Hospital discharge follow-up*; Chronic hypoxemic respiratory failure (HCC); Hypertensive heart failure (HCC); HTN, goal below 140/90; BMI 50.0-59.9, adult (HCC); Chronic kidney disease with symptom management [...] this encounter (statuses as of 08/01/2024) Medications home oxygen/equipment IN GAS Inhale 3 [...] Reported on 08/01/2024 Senna 8.6 MG Oral CapsuleIndication s:Constipation, unspecified [...] WEDNESDAY, WEDNESDAY AND WEDNESDAY 45 Tablet 3 Active Restasis 0.05 % Ophthalmic Emulsion Active Macular Health Formula Oral Capsule Take 3 Capsules by mouth every morning. Active Furosemide 20 MG Oral Tablet (Lasix)Indication s:Acute heart failure with preserved ejection fraction (HCC) TAKE ONE TABLET BY MOUTH IN THE MORNING 90 Tablet 3 Active Montelukast Sodium 10 MG Oral Tablet [...] the morning. 60 Blister Dosing Unit 1 Active Omeprazole 40 MG Oral Capsule Delayed Release (PriLOSEC)Indicat ions:Abdominal pain, generalized TAKE ONE CAPSULE IN THE MORNING 90 Capsule 1 Active Vitamin C 500 MG Oral Tablet (Ascorbic Acid) Take 1 Tablet by mouth in the morning. Active Lisinopril 40 MG Oral Tablet Take 1 Tablet by mouth in the morning. Active Pregabalin 100 MG Oral Capsule (Lyrica) Take 1 Capsule by mouth every evening. Active amLODIPine Besylate 10 MG Oral Tablet (Norvasc) Take 1 Tablet by mouth in the morning. 025 Active Melatonin 5 MG Tablet Daily at bedtime 2024 Discontinued Lactobacillus (PROBIOTIC ACIDOPHILUS) TABS Take 1 Tab by mouth daily. 2024 Discontinued Lisinopril 20 MG Oral Tablet (Prinivil)Indicat ions:Hypertensive kidney disease with stage 3b chronic kidney disease (HCC) TAKE ONE TABLET BY MOUTH IN THE MORNING 90 Tablet 3 024 2024 Discontinued amLODIPine Besylate 5 MG Oral Tablet (Norvasc)Indicati ons:HTN, goal below 140/90 TAKE ONE TABLET IN THE MORNING 90 Tablet 1 024 2024 Discontinued(M edication List Clean Up) Pregabalin 100 MG Oral Capsule (Lyrica)Indicatio ns:Small fiber neuropathy TAKE ONE CAPSULE BY MOUTH IN THE MORNING AND TWO CAPSULES in the evening 270 Capsule 024 2024 Discontinued(M edication List Clean Up) Hospital, Clinic, or Other Facility Administered Medication Ordered Dose Route Frequency Start Date End Date Status albuterol sulfate (PROVENTIL) (2.5 MG/3ML) 0.083% inhalation solution 2.5 mgIndications:Moderate persistent asthma without complication 2.5 mg NEBULIZER [id number] 07/22/2018 Active documented as of this encounter [...] Sign Reading Time Taken Comments Blood Pressure 130/76 08/01/2024 1:52 PM EST Pulse 56 08/01/2024 1:52 PM EST Temperature 35.6 °C (96 °F) 08/01/2024 1:52 PM EST Respiratory Rate - - Oxygen Saturation 86% 08/01/2024 1:52 PM EST Inhaled Oxygen Concentration - - Weight 127 kg (280 lb) 08/01/2024 1:52 PM EST Height 157.5 cm (5' 2") 08/01/2024 1:52 PM EST Body Mass Index 51.21 08/01/2024 1:52 PM EST documented in this encounter Patient Instructions * Patient Instructions* Cynthia Santiago MD - 08/01/2024 1:55 PM EST Coping with Your Diagnosis of a Chronic Health Condition If you have a chronic health condition, you have a problem that may not go away over time. Heart disease, asthma, arthritis, and diabetes are just a few of the chronic conditions that exist. Right now, these conditions have no known cure. But you can take an active role in managing your health. Coping with Your Diagnosis If you've just learned about your health condition, you may be angry, depressed, or afraid. Or you might feel relieved just to know what's wrong. Even if you've known about your health problem for a while, adjusting to it can be hard. But learning about your condition can help you cope. Look for books at your local library. If you have access to a computer, check the Internet. Or contact a group that focuses on your specific problem. Accepting Change Change is hard for most people. Yet right now you may be facing many changes. What you eat or the way you work may change. Your moods, and even your symptoms, might vary from day to day. Although it isn't easy, learning to accept change can help you feel more in control. Taking Control Feeling you have control can make living with your condition easier. Discuss treatment options withyour health care provider. The more you know, the more active you can be in your care. Moving Forward You may wonder whether you will be able to do the things you've always done. That depends on your age, the condition you have, and your goals. To make the most of each day, try to build caring relationships, be active, and eat right. Also, do your best to keep a sense of humor. © 6448-6925 Diana [facility], [address] [place] [address]. All rights reserved. This information is not intended as a substitute for professional medical care. Always follow your healthcare professional's instructions. documented in this encounter Progress Notes * Cynthia Santiago MD - 08/01/2024 1:55 PM EST SUBJECTIVE: Kandi Spivey is a 84 year old female. Chief Complaint Patient presents with Hospital Follow-Up Hospital Follow-Up Recent Admission: Patient was recently admitted to [facility] 07/22. The date of discharge was 07/23. Discharge report receivedand reviewed. Admitted for acute on chronic respiratory failure (was on 3L O2 at night prior), PNA,and encephalopathy. Was sick that week. The date of admission, she was confused and stayed in bed all day. Daughter took her to the hospital. Did need bipap briefly. Increased lisinopril and amlodipine, decreased lyricadosage. HPI: Is on 3L O2 continuous now. Breathing is good. No further confusion, strength is ok. Saw Pulm yesterday, note reviewed. Restrictive lung disease (possibly OHV), aortic stenosis and regurg, exertional hypoxia. Has PFTs scheduled 08/22. Seeing Cardiology again in December. Per Cards, not a good surgical candidate, so trying to optimize medically. Has home nursing coming in tomorrow for med management. Uses a rollator walker to get around. Needs a hospital bed for pulmonary disease, helps to be propped >30 degrees. Patient Active Problem List Diagnosis Arthritis of [...] Hx of nonmelanoma skin cancer Hiatal hernia Current Outpatient Medications Medication Sig Dispense Refill [...] Ellipta 200-62.5-25 MCG/ACT Aerosol Powder Breath Activated (Gzyvhzkoxzl-Dharyczxcyks-Wtnyiqojsa) Inhale 1 Puff by mouth in the [...] Q4H [place] CRNP 2.5 mg at 05/30/24 1444 Current and discharge medications have been reconciled. Review of patient's allergies indicates: Allergen Reactions Actonel [Bisphosphonates] Hives, Other (Please comment) and Rash Dysphagia Aminoquinolines Hives Iodinated Contrast Media Dilaudid [Hydromorphone Hcl] Unknown Gabapentin Hives Imuran [Azathioprine Sodium] Hives Methotrexate Hives Minocycline Hcl Hives Norvasc [Calcium Channel Blockers] Unknown Nsaids Hives Luflunomide also causes hives Parathyroid Hormone (Recomb) Edema Other and Other (Please comment) General malaise Lower extremity edema OBJECTIVE: BP 130/76 | Pulse 56 | Temp 96 °F (35.6 °C) (Infrared ) | Ht 5' 2" (1.575 m) | Wt 280 lb (127 kg)| SpO2 86% | BMI 51.21 kg/m² | BSA 2.36 m² O2 concentrator was off prior to vitals 91% on 3L on recheck PHYSICAL EXAM: BP 130/76 | Pulse 56 | Temp 96 °F (35.6 °C) (Infrared ) | Ht 5' 2" (1.575 m) | Wt 280 lb (127 kg)| SpO2 86% | BMI 51.21 kg/m² | BSA 2.36 m² General: alert, healthy, and no distress Neck: supple, no adenopathy, thyroid normal size, non-tender, without nodularity Lymph: no palpable lymphadenopathy Heart: regular rate & rhythm, no gallops, and systolic murmur appreciated Lungs: lungs clear to auscultation Abdomen: abdomen soft, non-tender, normal bowel sounds, and no masses or organomegaly Extremities: no joint deformities, effusion, or inflammation, no edema ASSESSMENT: Hospital discharge follow-up (Primary) - DISCH MED RECON CUR MED LIS Chronic hypoxemic respiratory failure (HCC) Increased need for O2 at this time, would continue as she is only 90% on the 3L. Follow with Pulm as recommended. Suspect some obesity hypoventilation, along with the heart issues and ERIK. Hypertensive heart failure (HCC); HTN Euvoluemic appearance today, continue lasix, beta josué and BP control with lisinopril and amlodipine BMI 50.0-59.9, adult (HCC) Likely contributing to the breathing, but difficulty with activity to help lose weight due to LE pains Chronic kidney disease with symptom management only, stage 3 (moderate) (HCC) Control BP, increased lisinopril on discharge. Monitor PLAN: Hasn't yet gotten new meds, recommend holding the lyrica per recommendations and starting increasedlisinopril and amlodipine once she gets them Follow up in 3 month(s). I spent a total of 40-54 minutes (exact time 41 mins) minutes on the date of service in preparation, delivery, and documentation of the care provided to Kandi Spivey excluding any time spent in performance of separately billed services. Cynthia Monroe MD documented in this encounter Nursing Notes * Nita Gao CMA - 08/01/2024 2:03 PM EST Pt was in hospital for Low O2 level was 76 in hospital, reports was sick all week prior to her hospitalization. Pt reports doing well at home, reports O2 at home has been running around 100%, saw lung Doctor yesterday and he told pt thinks her hiatal hernia hi pressing on her heart/lungs causing her symptoms. documented in this encounter Plan of Treatment Upcoming Encounters Date Type Department Care Team (Late st Contact Info) Description 08/02/2024 12:00 PM EST Home Visit Care Coordination and Integration [address] [place] [address] Sweetie Cline, Community [employer] Collections Analyst [address] [place] [address] 08/22/2024 2:30 PM EST PulmDiagnostic Pulmonary Function Lab, [facility] [address] [facility] [place] [address] [address], [address] [facility] [place] [address] 09/14/2024 3:00 PM EST Office Visit Pulmonary Medicine, [facility] [address] [facility] [place] [address] Deep Frank MD [address] [facility] [place] [address] 10/31/2024 4:00 PM EDT Office Visit [address] [phone] Cynthia Santiago MD [address] [place] [address] [place] [phone] 01/01/2025 2:30 PM EDT Cardiac Studies Cardiac Studies, [facility] [address] [facility] [place] [address] 01/09/2025 3:00 PM EDT Office Visit Pulmonary Medicine, [facility] [address] [facility] [place] [address] Deep Frank MD [address] [facility] [place] [address] 01/24/2025 2:20 PM EDT Office Visit Family [address] [phone] Xavier Zavala MD [address] [place] [address] [place] [id number] 01/25/2025 2:30 PM EDT Office Visit Cardiology [address] [place] [address] Akshat Che PA-C [address] [place] [address] [place] [id number] 03/05/2025 2:20 PM EDT Office Visit Dermatology [address] [place] [address] Lois Batista PA-C [address] [place] [address] [place] [address] 08/15/2025 2:20 PM EST Office Visit Family Medicine [address] [place] [phone] Xavier Zavala MD [address] [place] [address] [place] [id number] Health Maintenance Due Date Last Done Comments DTap/Tdap Vaccines (1 - Tdap) 1959 Adult Wellness Visit 2008 Zoster Vaccines (2 of 3) 07/14/2012 05/19/2012 *BISPHONATE OR OTHER ACCEPTABLE MEDICATION NEEDED FOR OSTEOPOROSIS (REFER TO SMARTSET #1146) 07/03/2022 CKD PHOS USE SMARTSET 55573 06/30/202306/18, 08/25/2021, 09/12/2020, Additional history exists COVID-19 Vaccine ( season) 2024 11/13/2020, 10/09/2020 GFR 04/20/2024 10/20/2023, 03/20, 01/07/2023, Additional history exists DXA Scan 08/03/2024 08/03/2022, 03/20, 02/04/2012 Albumin/Creatinine Ratio 10/19/2024 024, 06/30/2022, 08/25/2021, Additional history exists TSH 10/19/2024 10/20/2023, 12/18, 06/23/2021, Additional history exists CKD HGB USE SMARTSET 63202 07/23/202507/23, 07/22/2024, 07/21/2024, Additional history exists Depression Monitoring 07/26/2025 07/26/2024 Pneumococcal Vaccine: 50+ Years Completed 08/21/2014, 04/03/2011 Hepatitis B Vaccine Completed 12/09/2020, 08/01/2020, 06/07/2020 VITAMIN D LEVEL ONCE IN A LIFETIME-USE SMARTSET# [id number] Completed 06/30/2022, 08/25/2021, 01/16/2020, Additional history exists [...] as of this encounter Visit Diagnoses Diagnosis Hospital discharge follow-up- Primary Other follow-up examination Chronic hypoxemic respiratory failure (HCC) Chronic respiratory failure Hypertensive heart failure (HCC) Unspecified hypertensive heart disease with heart failure HTN, goal below 140/90 Unspecified essential hypertension BMI 50.0-59.9, adult (HCC) Body Mass Index 50.0-59.9, adult Chronic kidney disease with symptom management only, stage 3 (moderate) (HCC) documented in this encounter Care Teams Rn Geriatric Relationship Specialty Start Date End Date Xavier Zavala MD [address] [place] [address] [place] [id number] PCP - General Family Medicine 04/28/21 documented as of this encounter
--- OUTSIDE RECORDS SUMMARY | 2024-11-06 08:58 | External Medical Summary | Summary of Care ---
Author Name Unknown Organization [facility] Address [address] [place] [address] Phone [phone] Care Team Providers Care Boring Machine Operator Vertical Name Role Phone Xavier Zavala MD Primary Care Provide r Reason for Visit * Reason Comments NEW PATIENT New pulm .Asthma. Re strictive lung disease. Chronic hypoxemic resp. Failure. * Evaluate & Treat - Unlimited Visits (Within 30 days (routine)) - Authorized Specialty Diagnoses / Procedures Referred By Contac t Referred To Contact Pulmonary Diseases / Pulmonary Diagnoses Mild persistent asthma without complication Xavier Zavala MD [address] [place] [address] [place] [address] Phone: tel: fax: Referral ID Status Reason Start Date Expiration Date Visits Requested Visits Authorized [id number] Authorized Specialty Services Required [phone] Encounter Details Date Type Department Care Team (Late st Contact Info) Description 07/31/2024 1:00 PM EST Office Visit Pulmonary Medicine, [facility] [address] [facility] [place] [address] Deep Dubois MD [address] [facility] [place] [phone] Ascending aorta enlargement (HCC)*; Hiatal hernia; Nocturnal hypoxia Allergies Active Allergy Reactions Criticality Noted Date [...] Patient taking differently:100 mg OralPRN, Reported on 07/31/2024 Senna 8.6 MG Oral CapsuleIndications :Constipation, unspecified [...] TABLET BY MOUTH ON WEDNESDAY, WEDNESDAY AND FER 40 Tablet 3 09/24/19 24 Active predniSONE [...] persistent asthma without complication 2.5 mg NEBULIZER [id number] 07/22/2018 Active documented as of this encounter [...] 08/01/2024) Immunizations Name Administration Dates Next Due Hepatitis [...] Sign Reading Time Taken Comments Blood Pressure 122/72 07/31/2024 1:09 PM EST Pulse 81 07/31/2024 1:09 PM EST Temperature 36.8 °C (98.2 °F) 07/31/2024 1:09 PM ES T Respiratory Rate 16 07/31/2024 1:09 PM EST Oxygen Saturation 90% 07/31/2024 1:09 PM EST ra-rest Inhaled Oxygen Concentration - - Weight 126.6 kg (279 lb) 07/31/2024 1:09 PM EST Height 157.5 cm (5' 2") 07/31/2024 1:09 PM EST Body Mass Index 51.03 07/31/2024 1:09 PM EST documented in this encounter Progress Notes * Deep Dubois MD - 07/31/2024 1:03 PM EST Images from the original note were not included. 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 3 pack-year smoking history quit more than 40 years ago Multifactorial dyspnea with Exertional hypoxia (on 2 LPM oxygen with activity) Large hiatal hernia noted on chest x-ray 09/2022 Jteygdyf-og-soopto aortic stenosis and aortic regurgitation Ascending aortic aneurysm noted on 2020 CT chest Hypertension Hyperlipidemia Obesity, BMI 50.96 Congestive heart failure CKD DJD Hx of Macular degeneration Physical Examination: Alert, awake, no distress Class 3 throat No JVD Adeq Air entry in all lung solis, scattered rales, no dullness S1, S2, no murmur Soft nontender abdomen No LE Edema Nonlateralizing Neuro Exam Assessment Multifactorial dyspnea with primary cardiac risk factors (Moderate to severe / AR), large hiatalhernia, restrictive lung disease (likley related to BMI) noted on PFT along with evidence of exertional hypoxia Obesity, BMI 50.96 Deconditioning Request [facility] CT chest Films 6 MWT Follow Cardio eval for ? TAVR BNP requested F/u 6 weeks Follow Up: Return in about 6 weeks (around 09/11/2024) for Clinic Visit. | For: Clinic Visit | Check-out note: Multifactorial dyspnea with primary cardiac risk factors (Moderate to severe /AR), large hiatal hernia, restrictive lung disease (likley related to BMI) noted on PFT along with evidence of exertional hypoxia Obesity, BMI 50.96 Deconditioning Request [facility] CT chest Films 6 MWT Follow Cardio eval for ? TAVR BNP requested F/u 6 weeks I spent a total of 40-54 minutes (exact time 45 mins) on the date of service in preparation, delivery, and documentation of the care provided to Kandi Spivey excluding any time spent in the performance of separately billed services or time spent by another provider/QHP. Deep Dubois MD Data review: Following reports, and data as outlined below was personally reviewed and interpreted by myself. XR CHEST 2 VIEWS DATE TIME: 10/02/2022 - 10/02/2022 12:14 pm HISTORY: 82 y/o F pneumonia follow up TECHNIQUE: Two views of the chest COMPARISON: Chest radiograph 09/01/2022. CT chest 04/04/2021. FINDINGS: Redemonstration of a large hiatal hernia. Mildly elevated right hemidiaphragm, similar to prior exam. Improving previously reported left lower lung opacities. No new focal consolidation. No pleural effusion or pneumothorax. Cardiac silhouette is stable in size. Atherosclerotic changes of the aortic arch. Degenerative changes of the spine. IMPRESSION IMPRESSION: 1. Improving previously reported left lower lung opacities. No new focal consolidation. 2. Redemonstration of a large hiatal hernia. CT CHEST WO CONTRAST DATE and TIME: 04/04/2021 11:48 am HISTORY CLINICAL INFORMATION: Ascending aortic enlargement COMPARISON CT CHEST WO CONTRAST dated 09/13/2018; CHEST 2 VIEWS AP OR PA AND LATERAL dated 05/03/2012 FINDINGS On coronal plane, aortic root measures 3.7 cm and mid ascending aorta 4 cm in diameter. Mild calcific plaque along the ascending aorta and arch. Mid aortic arch measures 3.2 cm in diameter, and mid descending aorta 3.1 cm. No pericardial effusion. Heart is not significantly enlarged. Mitral valve calcification. No lymphadenopathy is identified in the chest. No suspicious pulmonary nodule. Large hiatal hernia. Absent gallbladder. No adrenal mass. Mild degenerative disc disease. IMPRESSION IMPRESSION 4 cm aneurysmal dilation of mid ascending aorta. PFT 05/2024: 84-year-old female, BMI 51, history of asthma, 4 pack-year smoking history quit 54 years ago. 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 3 L nocturnal home oxygen therapy status. Pulmonary function testing shows moderate restrictive ventilatory pattern. FEV1 is 1.19 L, 70% of predicted. No bronchodilator response is noted. Flow volume loop shows moderate restriction. Lung volume study shows moderate restriction. Normal gas transfer is noted. No hyperinflation is noted. Comparison with historical PFT data from 2019 shows decline in ventilatory parameters. FEV1 decreased from 1.58 L to 1.19 L, from 80% of predicted to 70% of predicted which is considered a clinically significant decline. Overall impression: Moderate restrictive ventilatory pattern with declining ventilatory parameters compared to historical data. BMI 51 noted. Clinical correlation recommended to rule out pseudo restriction secondary to body habitus artifact.This interpretation has been electronically signed: DEEP DUBOIS DR. 06/04/2024 02:59:44 PM Comparative PFT Data: 6 MWT 2017 : 2 LPM Oxygen with Activity F/u Exercise Oximetry by PCP 09/2022: Before: 85% on room air After: 93% with 2L of oxygen Subjective CC: Chief Complaint Patient presents with NEW PATIENT New pulm .Asthma. Restrictive lung disease. Chronic hypoxemic resp. Failure. HPI: Nursing Notes: Marta Trejo LPN 07/31/24 1318 Signed Chief Complaint Patient presents with NEW PATIENT New pulm .Asthma. Restrictive lung disease. Chronic hypoxemic resp. Failure. Interm History/Respiratory Symptoms Cough: no Hemoptysis: no Sinus Symptoms: yes-drainage Hospitalizations: 07/22-07/23-acute and chronic resp failure ,asthma, viral pneumonia. ED Trips: 07/22/24 Triggers: none Nocturnal: sleeps with head elevated CPAP/BiPAP/O2: O2 at night-3L. DME Supplier: [facility]. Flu Vaccine: 2023 Pneumovax: 2010 Prevnar: 2014 COVID 19: x2. MMRC Dyspnea Scale = 1 (I get short of breath when hurrying on level ground or walking up a slight hill) Objective Filed Vitals: 07/31/24 1309 BP: 122/72 Pulse: 81 Resp: 16 Temp: 36.8 °C (98.2 °F) TempSrc: Tympanic SpO2: 90% Weight: 126.6 kg (279 lb) Height: 1.575 m (5' 2") Exam: Const: No signs of acute distress [...] were discussed with the patient. HOME MEDICATIONS: Vitamin C 500 MG Oral Tablet (Ascorbic Acid) Pregabalin 100 MG Oral Capsule (Lyrica) Omeprazole 40 MG Oral Capsule Delayed Release (PriLOSEC) Trelegy Ellipta 200-62.5-25 MCG/ACT Aerosol Powder Breath Activated (Subihajaxuu-Ishecxibkmbv-Aeyqsoqcpy) amLODIPine Besylate 5 MG Oral Tablet (Norvasc) DULoxetine HCl 30 MG Oral Capsule Delayed Release Particles (Cymbalta) Levothyroxine Sodium 150 MCG Oral Tablet (Levoxyl) Metoprolol Tartrate 25 MG Oral Tablet (Lopressor) Montelukast Sodium 10 MG Oral Tablet (Singulair) Furosemide 20 MG Oral Tablet (Lasix) Lisinopril 20 MG Oral Tablet (Prinivil) Macular Health Formula Oral Capsule Restasis 0.05 % Ophthalmic Emulsion predniSONE 5 MG Oral Tablet (Deltasone) Vitron-C 65-125 MG Oral Tablet (Iron-Vitamin C 65-125 mg per tab) Atorvastatin Calcium 10 MG Oral Tablet (Lipitor) Allopurinol 100 MG Oral Tablet (Zyloprim) Albuterol Sulfate HFA 108 (90 Base) MCG/ACT Inhalation Aerosol Solution Docusate Sodium 100 MG Oral Capsule (Colace) Senna 8.6 MG Oral Capsule Tylenol PM Extra Strength 500-25 MG Oral Tablet (diphenhydrAMINE-APAP (sleep)) home oxygen/equipment IN GAS Lactobacillus (PROBIOTIC ACIDOPHILUS) TABS Melatonin 5 MG Tablet albuterol sulfate (PROVENTIL) (2.5 MG/3ML) 0.083% inhalation [...] hypothyroidism Arthritis of knee Ascending aorta enlargement ([facility]) 10/14/2022 Chronic hypoxemic respiratory failure ([facility]) 10/20/2023 Diverticulosis of colon 04/15/2011 DVT (deep venous thrombosis) ([facility]) 2011 LLE--following knee replacement Dyslipidemia, goal LDL below 100 01/03/2016 Elevated plasma metanephrines 02/12/2014 Esophagitis, unspecified Hiatal hernia Large Hypertensive heart failure ([facility]) Hypertensive kidney disease with chronic kidney disease stage III ([facility]) 04/03/2019 Mild persistent asthma 05/31/2019 Moderate episode of recurrent major depressive disorder ([facility]) 01/22/2020 Morbid obesity with body mass index of 50.0-59.9 in adult ([facility]) 06/30/2018 Other specified acquired hypothyroidism Primary osteoarthritis [...] EGD, FLEXIBLE, DIAGNOSTIC 11/22/2018 hiatal hernia / [facility] EXPLORATION OF ABDOMEN x 3 LIGATE/CUT OVIDUCT(S) [...] date: 07/19/1958 Quit date: 1970 Years since quittin.0 Smokeless tobacco: Never Vaping Use Vaping status: [...] Insecurity: No Food Insecurity (07/26/2024) Food Insecurity Do you need food for this week? [...] Stability Do you currently live in a custodial or have no steady place to sleep [...] Nursing Notes * Marta Trejo LPN - 07/31/2024 1:12 PM EST Chief Complaint Patient presents with NEW PATIENT New pulm .Asthma. Restrictive lung disease. Chronic hypoxemic resp. Failure. Interm History/Respiratory Symptoms Cough: no Hemoptysis: no Sinus Symptoms: yes-drainage Hospitalizations: 07/22-07/23-acute and chronic resp failure ,asthma, viral pneumonia. ED Trips: 07/22/24 Triggers: none Nocturnal: sleeps with head elevated CPAP/BiPAP/O2: O2 at night-3L. DME Supplier: P. Flu Vaccine: 2023 Pneumovax: 2010 Prevnar: 2015 COVID 19: x2. MMRC Dyspnea Scale = 1 (I get short of breath when hurrying on level ground or walking up a slight hill) documented in this encounter Plan of Treatment Upcoming Encounters Date Type Department Care Team (Late st Contact Info) Description 08/01/2024 2:00 PM EST Office Visit Family Medicine [address] [phone] Cynthia Santiago MD [address] [place] [address] [place] [phone] 08/02/2024 12:00 PM EST Home Visit Care Coordination and Integration [address] [place] [address] Sweetie Cline Community Health Hand Cloth Examiner [address] [place] [address] 08/22/2024 2:30 PM EST PulmDiagnostic Pulmonary Function Lab, [facility] [address] [facility] [place] [address] [place], Pft [address] [facility] [place] [address] 09/14/2024 3:00 PM EST Office Visit Pulmonary Medicine, [facility] [address] [facility] [place] [address] Deep Dubois MD [address] [place] [address] 01/01/2025 2:30 PM EDT Cardiac Studies Cardiac Studies, [address] [place] [address] 01/09/2025 3:00 PM EDT Office Visit Pulmonary Medicine, [facility] [address] [facility] [place] [address] Deep Dubois MD [address] [place] [address] 01/24/2025 2:20 PM EDT Office Visit Family Medicine [address] [place] [phone] Xavier Zavala MD [address] [place] [address] [place] [address] 01/25/2025 2:30 PM EDT Office Visit Cardiology [address] [place] [address] Akshat Che PA-C [address] [facility] [place] [address] 03/05/2025 2:20 PM EDT Office Visit Dermatology [address] [place] [address] Lois Batista PA-C [address] [place] [address] [place] [address] 08/15/2025 2:20 PM EST Office Visit Family Medicine [address] [place] [phone] Xavier Zavala MD [address] [place] [address] [place] [address] Scheduled Orders Name Type Priority Associated Diagnoses Orde r Schedule XR CHEST 2 VIEWS Medical Imaging Routine Ascending aorta enlargement (HCC) Hiatal hernia Ordered: 07/31/2024 PULMONARY STRESS TESTING Procedures Routine Ascending aorta enlargement (HCC) Hiatal hernia Expected: 08/01/2024, Expires: 08/31/2025 NOCTURNAL HOME OXIMETRY (OP) Procedures Routine Ascending aorta enlargement (HCC) Hiatal hernia Nocturnal hypoxia Ordered: 07/31/2024 Health Maintenance Due Date Last Done Comments DTap/Tdap Vaccines (1 - Tdap) 1959 Adult Wellness Visit 2008 Zoster Vaccines (2 of 3) 07/14/2012 05/19/2012 *BISPHONATE OR OTHER ACCEPTABLE MEDICATION NEEDED FOR OSTEOPOROSIS (REFER TO SMARTSET #1146) 07/03/2022 CKD PHOS USE SMARTSET 97483 06/30/202306/18, 08/25/2021, 09/12/2020, Additional history exists COVID-19 Vaccine ( season) 2024 GFR 04/20/2024 10/20/2023, 03/20, 01/07/2023, Additional history exists DXA Scan 08/03/2024 08/03/2022, 03/20, 02/04/2012 Albumin/Creatinine Ratio 10/19/2024 024, 06/30/2022, 08/25/2021, Additional history exists TSH 10/19/2024 10/20/2023, 12/18, 06/23/2021, Additional history exists CKD HGB USE SMARTSET 17004 07/23/202507/23, 07/22/2024, 07/21/2024, Additional history exists Depression Monitoring 07/26/2025 07/26/2024 Pneumococcal Vaccine: 50+ Years Completed 08/21/2014, 04/03/2011 Hepatitis B Vaccine Completed 12/09/2020, 08/01/2020, 06/07/2020 VITAMIN D LEVEL ONCE IN A LIFETIME-USE SMARTSET# 13390 Completed 06/30/2022, 08/25/2021, 01/16/2020, Additional history exists [...] Procedure Name Priority Date/Time Associated Diagnosis Comments BNP (NT-PROBNP) Routine 07/31/2024 2:08 PM EST Ascending aorta enlargement (HCC) Hiatal hernia documented in this encounter Results * (ABNORMAL) BNP, NT-PRO (07/31/2024 2:08 PM EST) BNP, NT-Pro 784(H) <300 pg/mL 08/01/2024 6:11 AM EST [facility] Blood Venous blood specimen / Unknown Venipuncture / Unknown 07/31/2024 2:08 PM EST 07/31/2024 2:08 PM EST Narrative [facility] - 08/01/2024 6:11 AM EST Exclude Heart Failure: <300 pg/mL Diagnose Heart Failure: Age <50 yr: >450 pg/mL 50-75 yr: >900 pg/mL >75 yr: >1800 pg/mL GFR is 30-59 mL/min: >1200 pg/mL or Age-adjusted values GFR <30 mL/min: do not use, not reliable Prognostic threshold: 1000 pg/mL us Deep Dubois MD LAB BLOOD ORDERABLES F inal Result [facility] [address] documented in this encounter Visit Diagnoses Diagnosis Ascending aorta enlargement (HCC)- Primary Other specified disorders of arteries and arterioles Hiatal hernia Diaphragmatic hernia without mention of obstruction or gangrene Nocturnal hypoxia Hypoxemia documented in this encounter Care Teams Boring Machine Operator Vertical Relationship Specialty Start Date End Date Xavier Zavala MD [address] [place] [address] [place] [phone] PCP - General Family Medicine 04/28/21 documented as of this encounter
--- OUTSIDE RECORDS SUMMARY | 2024-11-06 08:58 | External Medical Summary | Summary of Care ---
Author Name Unknown Organization [facility] Address [address] [place] [address] Phone [phone] Care Team Providers Care Mining Professionals Name Role Phone Xavier Zavala MD Primary Care Provide r Encounter Details Date Type Department Care Team (Late st Contact Info) Description 08/02/2024 12:00 PM EST Home Visit Care Coordination and Integration [address] [place], [place] [phone] Sweetie Cline Community Health Sales Performance Analyst [address] [place], [place] [phone] Allergies Active Allergy Reactions Criticality Noted Date [...] as of this encounter (statuses as of 08/02/2024) Medications home oxygen/equipment IN GAS Inhale 3 [...] persistent asthma without complication 2.5 mg NEBULIZER [id number] 07/22/2018 Active documented as of this encounter (statuses as of 08/02/2024) Active Problems Problem Noted Date Diagnosed Date [...] thrombosis) 10/16/2013 Overview (10/16/2013): Pos-op knee replacement 2012 Vitamin D deficiency 08/24/2013 Senile osteoporosis 06/14/2012 Current moderate episode of major depressive dis order 05/20/2011 Overview (05/11/2017): ICD-10 update of inactive term Diverticulosis of colon 04/15/2011 Meralgia paresthetica 02/27/2011 Arthritis of knee Acquired hypothyroidism Hiatal hernia Overview (06/06/2024): Large documented as of this encounter (statuses as of 08/02/2024) Resolved Problems Problem Noted Date Diagnosed Date [...] as of this encounter (statuses as of 08/02/2024) Immunizations Name Administration Dates Next Due COVID-19, [...] No 07/26/2024 Does the household have a up health systemr source of income? (Household - for ages [...] Sign Reading Time Taken Comments Blood Pressure 140/80 08/02/2024 12:55 PM EST Pulse 59 08/02/2024 12:55 PM EST Temperature 36.8 °C (98.2 °F) 08/02/2024 12:[address] Respiratory Rate - - Oxygen Saturation 95% 08/02/2024 12:55 PM EST Inhaled Oxygen Concentration - - Weight - - Height - - Body Mass Index - - documented in this encounter Progress Notes * Sweetie Cline, Community Health Sales Performance Analyst - 08/02/2024 12:24 PM EST Telemedicine visit: No Community Health Sales Performance Analyst (ANNETTA) documentation: This CHW initiated return visit with patient and daughter. Patient is getting a new raised bed and that was ordered and will be arriving this Wednesday. Patient had some medication changes while in the ED and patient has two more days left of meds and has not received her new med pouches. Daughter placed PC to pharmacy regarding medication pouches and this CHW confirmed changes with pharmacy and they are working on getting her pouches ready and will deliver. Patient is still taking the Extra Strength Tylenol PM to help her sleep, she does not know why they told her to stop taking this. This CHW suggested that she talk with her PCP about trouble falling asleep issues. This CHW completed home safety assessment. This CHW completed vitals This CHW completed bottles out medication review Sweetie Cline- Community Health Worker 1 Support Services/VII NETWORKer At Home 3DVista Plan [email or web address] documented in this encounter Plan of Treatment Upcoming Encounters Date Type Department Care Team (Late st Contact Info) Description 08/22/2024 2:30 PM EST PulmDiagnostic Pulmonary Function Lab, [facility] [address] [facility] [place] [address] [place], [address]ft [address] [facility] [place] [address] 09/14/2024 3:00 PM EST Office Visit Pulmonary Medicine, [facility] [address] [facility] [place] [address] Deep Frank MD [address] [facility] [place] [address] 10/31/2024 4:00 PM EDT Office Visit Family Medicine [address] [place] [phone] Cynthia Santiago MD [address] [place] [address] [place] [phone] 01/01/2025 2:30 PM EDT Cardiac Studies Cardiac Studies, [facility] [place] [address] 01/09/2025 3:00 PM EDT Office Visit Pulmonary Medicine, [facility] [place] [address] Deep Frank MD [address] [place] [address] 01/24/2025 2:20 PM EDT Office Visit Family Medicine [address] [place] [phone] Xavier Zavala MD [address] [place] [address] [place] [address] 01/25/2025 2:30 PM EDT Office Visit Cardiology [address] [place] [address] Akshat Che PA-C [address] [facility] [place] [address] 03/05/2025 2:20 PM EDT Office Visit Dermatology [address] [place] [address] Lois Batista PA-C [address] [place] [address] [place] [address] 08/15/2025 2:20 PM EST Office Visit Family Medicine [address] [place] [phone] Xavier Zavala MD [address] [place] [address] [place] [address] Health Maintenance Due Date Last Done Comments DTap/Tdap Vaccines (1 - Tdap) 1959 Adult Wellness Visit 2008 Zoster Vaccines (2 of 3) 07/14/2012 05/19/2012 *BISPHONATE OR OTHER ACCEPTABLE MEDICATION NEEDED FOR OSTEOPOROSIS (REFER TO SMARTSET #1146) 07/03/2022 CKD PHOS USE SMARTSET 30659 06/30/202306/18, 08/25/2021, 09/12/2020, Additional history exists COVID-19 Vaccine ( season) 2024 11/13/2020, 10/09/2020 GFR 04/20/2024 10/20/2023, 03/20, 01/07/2023, Additional history exists DXA Scan 08/03/2024 08/03/2022, 03/20, 02/04/2012 Albumin/Creatinine Ratio 10/19/2024 024, 06/30/2022, 08/25/2021, Additional history exists TSH 10/19/2024 10/20/2023, 12/18, 06/23/2021, Additional history exists CKD HGB USE SMARTSET 80154 07/23/202507/23, 07/22/2024, 07/21/2024, Additional history exists Depression Monitoring 07/26/2025 07/26/2024 Pneumococcal Vaccine: 50+ Years Completed 08/21/2014, 04/03/2011 Hepatitis B Vaccine Completed 12/09/2020, 08/01/2020, 06/07/2020 VITAMIN D LEVEL ONCE IN A LIFETIME-USE SMARTSET# 89887 Completed 06/30/2022, 08/25/2021, 01/16/2020, Additional history exists [...] filedocumented as of this encounter Care Teams Mining Professionals Relationship Specialty Start Date End Date Xavier Zavala MD [address] [place] [address] [place] [address] PCP - General Family Medicine 04/28/21 documented as of this encounter
--- OUTSIDE RECORDS SUMMARY | 2024-11-06 08:58 | External Medical Summary | Summary of Care ---
Author Name Unknown Organization [facility] Address [address] [place] [address] Phone [phone] Care Team Providers Care Senior Paralegal Name Role Phone Xavier Zavala MD Primary [...] persistent asthma without complication Xavier Zavala MD [address] [place] [address] [place] [address] Phone: tel: fax: Referral ID Status Reason Start Date Expiration Date Visits Requested Visits Authorized [id number] Authorized Specialty Services Required [phone] Encounter Details Date Type Department Care Team (Late st Contact Info) Description 07/31/2024 1:00 PM EST Office Visit Pulmonary Medicine, [facility] [place] [address] Varsha Dubois MD [address] [facility] [place] [phone] Ascending aorta enlargement (HCC)*; Hiatal hernia; Nocturnal hypoxia; Chronic respiratory failure with hypoxia (HCC) Allergies Active Allergy Reactions Criticality Noted [...] as of this encounter (statuses as of 08/29/2024) Medications home oxygen/equipment IN [place]AS Inhale 3 [...] Tablet by mouth in the morning. Active Melatonin 5 MG Tablet Daily at bedtime 2024 Discontinued Lactobacillus (PROBIOTIC ACIDOPHILUS) TABS Take 1 Tab by mouth daily. 2024 Discontinued Allopurinol 100 MG Oral Tablet (Zyloprim)Indicat ions:Chronic gout due to renal impairment of multiple sites without tophus Take 2 Tablets by mouth in the morning. 180 Tablet 4 024 02/07/ 2025 Discontinued Lisinopril 20 MG Oral Tablet (Prinivil)Indicat [...] persistent asthma without complication 2.5 mg NEBULIZER [id number] 07/22/2018 Active documented as of this encounter (statuses as of 08/29/2024) Active Problems Problem Noted Date Diagnosed Date [...] as of this encounter (statuses as of 08/29/2024) Resolved Problems Problem Noted Date Diagnosed Date [...] as of this encounter (statuses as of 08/29/2024) Immunizations Name Administration Dates Next Due COVID-19, [...] documented in this encounter Progress Notes * Varsha Dubois MD - 07/31/2024 1:03 PM EST Images from the original note were not included. 07/31/2024 Pulmonary Medicine, [address] [place] [address] [id number] Kandi Spivey 1940 female 84 year old Attending Physician Documentation: 84-year-old female Rtd Caregiver/home care provider Remote 3 pack-year smoking history quit more than 40 years ago Multifactorial dyspnea with Exertional hypoxia (on 2 LPM oxygen with activity) Large hiatal hernia noted on chest x-ray 09/2022 Lforxcmr-xz-zsjoav aortic stenosis and aortic regurgitation Ascending aortic [...] exertional hypoxia Obesity, BMI 50.96 Deconditioning Request [facility] CT chest Films 6 MWT Follow Cardio [...] exertional hypoxia Obesity, BMI 50.96 Deconditioning Request [facility] CT chest Films 6 MWT Follow Cardio eval for ? TAVR BNP requested F/u 6 weeks I spent a total of 40-54 minutes (exact time 45 mins) on the date of service in preparation, delivery, and documentation of the care provided to Kandi Spivey excluding any time spent in the performance of separately billed services or time spent by another provider/QHP. Varsha Dubois MD Data review: Following reports, and [...] habitus artifact.This interpretation has been electronically signed: VARSHA DUBOIS DR. 06/04/2024 02:59:44 PM Comparative PFT [...] elevated CPAP/BiPAP/O2: O2 at night-3L. DME Supplier: [facility]. Flu Vaccine: 2023 Pneumovax: 2010 Prevnar: 2014 [...] Ellipta 200-62.5-25 MCG/ACT Aerosol Powder Breath Activated (Qdsebyeavnn-Jjburxdhhpzk-Krtszihlel) amLODIPine Besylate 5 MG Oral Tablet (Norvasc) [...] hypothyroidism Arthritis of knee Ascending aorta enlargement ([facility]) 10/14/2022 Chronic hypoxemic respiratory failure ([facility]) 10/20/2023 Diverticulosis of colon 04/15/2011 DVT (deep venous thrombosis) ([facility]) 2011 LLE--following knee replacement Dyslipidemia, goal LDL below 100 01/03/2016 Elevated plasma metanephrines 02/12/2014 Esophagitis, unspecified Hiatal hernia Large Hypertensive heart failure (HCC) Hypertensive kidney disease with chronic kidney disease stage III ([facility]) 04/03/2019 Mild persistent asthma 05/31/2019 Moderate episode of recurrent major depressive disorder ([facility]) 01/22/2020 Morbid obesity with body mass index of 50.0-59.9 in adult ([facility]) 06/30/2018 Other specified acquired hypothyroidism Primary osteoarthritis [...] EGD, FLEXIBLE, DIAGNOSTIC 11/22/2018 hiatal hernia / [facility] EXPLORATION OF ABDOMEN x 3 LIGATE/CUT OVIDUCT(S) 1972 MAMMOGRAM SCREENING BILATERAL 03/13/2014 almost entirely fat, category 1 normal OTHER (INFORMATION) 1974 knee surgery OTHER (INFORMATION) 10/19/2011 L knee replacement REMOVE GALLBLADDER 1971 REMOVE TONSILS & ADENOIDS, UNDER 12 TENDON SHEATH INCISION, FINGER Right 10/19/2017 TOTAL ABD HYSTERECTOMY W/WO REMOVAL OF TUBE(S) 1986 TOTAL HYSTERECTOMY Social History Socioeconomic History Marital [...] Stability Do you currently live in a intermediate or have no steady place to sleep [...] elevated CPAP/BiPAP/O2: O2 at night-3L. DME Supplier: [facility]. Flu Vaccine: 2023 Pneumovax: 2010 Prevnar: 2014 COVID 19: x2. MMRC Dyspnea Scale = 1 (I get short of breath when hurrying on level ground or walking up a slight hill) documented in this encounter Miscellaneous Notes * Addendum Note - Varsha Dubois MD - 08/28/2024 8:20 PM ESTAddended by: VARSHA DUBOIS on: 08/28/2024 08:20 PM Modules accepted: Orders * Result Encounter Note - Varsha Dubois MD - 08/28/2024 8:19 PM EST Your recent nocturnal pulse oximetry study showed episodes of significant drops in oxygen levels through the night. We would recommend use of oxygen therapy while sleeping at night. Prescription will be submitted to a [employer] equipment [place], who will be contacting you for set up home oxygen for nighttime use. Please contact the office with any additional questions. Sincerely Dr. Dubois documented in this encounter Plan of Treatment Upcoming Encounters Date Type Department Care Team (Late st Contact Info) Description 09/14/2024 3:00 PM EST Office Visit Pulmonary Medicine, [address] [place] [address] Varsha Dubois MD [address] [place] [address] [place] [phone] 10/31/2024 4:00 PM EDT Office Visit Family Medicine [address] [place] [phone] Cynthia Santiago MD [address] [place] [address] [place] [phone] 01/01/2025 2:30 PM EDT Cardiac Studies [facility], [facility] [place] [address] 01/09/2025 3:00 PM EDT Office Visit Pulmonary Medicine, [facility] [address] [facility] [place] [address] Varsha Dubois MD [address] [facility] [place] [address] 01/24/2025 2:20 PM EDT Office Visit Family Medicine [address] [place] [phone] Xavier Zavala MD [address] [place] [address] [place] [address] 01/25/2025 2:30 PM EDT Office Visit Cardiology [address] [place] [address] Akshat Che PA-C 132 [facility] [place] [address] 03/05/2025 2:20 PM EDT Office Visit Dermatology [address] [place] [address] Lois Batista PA-C [address] [place] [address] [place] [address] 08/15/2025 2:20 PM EST Office Visit Family Medicine [address] [place] [phone] Xavier Zavala MD [address] [place] [address] [place] [address] Scheduled Orders Name Type Priority Associated Diagnoses Orde r Schedule XR CHEST 2 VIEWS Medical Imaging Routine Ascending aorta enlargement (HCC) Hiatal hernia Ordered: 07/31/2024 Health Maintenance Due Date Last Done Comments DTap/Tdap Vaccines (1 - Tdap) 1959 Adult Wellness Visit 2008 Zoster Vaccines (2 of 3) 07/14/2012 05/19/2012 *BISPHONATE OR OTHER ACCEPTABLE MEDICATION NEEDED FOR OSTEOPOROSIS (REFER TO SMARTSET #1146) 07/03/2022 CKD PHOS USE SMARTSET 53810 06/30/202306/18, 08/25/2021, 09/12/2020, Additional history exists COVID-19 Vaccine ( season) 2024 11/13/2020, 10/09/2020 GFR 04/20/2024 10/20/2023, 03/20, 01/07/2023, Additional history exists DXA Scan 08/03/2024 08/03/2022, 03/20, 02/04/2012 Albumin/Creatinine Ratio 10/19/2024 024, 06/30/2022, 08/25/2021, Additional history exists TSH 10/19/2024 10/20/2023, 12/18, 06/23/2021, Additional history exists CKD HGB USE SMARTSET 81292 07/23/202507/23, 07/22/2024, 07/21/2024, Additional history exists Depression Monitoring 07/26/2025 07/26/2024 Pneumococcal Vaccine: 50+ Years Completed 08/21/2014, 04/03/2011 Hepatitis B Vaccine Completed 12/09/2020, 08/01/2020, 06/07/2020 VITAMIN D LEVEL ONCE IN A LIFETIME-USE SMARTSET# 41984 Completed 06/30/2022, 08/25/2021, 01/16/2020, Additional history exists [...] Procedure Name Priority Date/Time Associated Diagnosis Comments NOCTURNAL HOME OXIMETRY (OP) Routine 08/12/2024 Ascending aorta enlargement (HCC) Hiatal hernia Nocturnal hypoxia BNP (NT-PROBNP) Routine 07/31/2024 2:08 PM EST Ascending aorta enlargement (HCC) Hiatal hernia documented in this encounter Results * PULMONARY STRESS TESTING (08/22/2024) 08/22/2024 us Varsha Dubois MD MEDICINE Final Result * NOCTURNAL HOME OXIMETRY (OP) (08/12/2024) 08/12/2024 us Varsha Dubois MD MEDICINE Final Result * (ABNORMAL) BNP, NT-PRO (07/31/2024 2:08 PM EST) BNP, NT-Pro 784(H) <300 pg/mL 08/01/2024 6:11 AM EST [facility] Blood Venous blood specimen / Unknown Venipuncture / Unknown 07/31/2024 2:08 PM EST 07/31/2024 2:08 PM EST Narrative [facility] - 08/01/2024 6:11 AM EST Exclude Heart Failure: <300 pg/mL Diagnose Heart Failure: Age <50 yr: >450 pg/mL 50-75 yr: >900 pg/mL >75 yr: >1800 pg/mL GFR is 30-59 mL/min: >1200 pg/mL or Age-adjusted values GFR <30 mL/min: do not use, not reliable Prognostic threshold: 1000 pg/mL us Varsha Dubois MD LAB BLOOD ORDERABLES F inal Result [facility] [address] [place] [address] documented in this encounter Visit Diagnoses Diagnosis Ascending aorta enlargement (HCC)- Primary Other specified disorders of arteries and arterioles Hiatal hernia Diaphragmatic hernia without mention of obstruction or gangrene Nocturnal hypoxia Hypoxemia Chronic respiratory failure with hypoxia (HCC) Chronic respiratory failure documented in this encounter Care Teams Senior Paralegal Relationship Specialty Start Date End Date Xavier Zavala MD [address] [place] [address] [place] [phone] PCP - General Family Medicine 04/28/21 documented as of this encounter
--- OUTSIDE RECORDS SUMMARY | 2024-11-06 08:59 | External Medical Summary ---
Author Name Unknown Address Unknown Organization K01:[facility] [place] [facility] [address] Laboratory Report Ordering Provider Test Date Status REHAN MADDOXI 07/31/2024 14:08:18 Final Exclude Heart Failure: <300 pg/mL
Diagnose Heart Failure:
Age <50 yr: >450 pg/mL
50-75 yr: >900 pg/mL
>75 yr: >1800 pg/mL
GFR is 30-59 mL/min: >1200 pg/mL or Age- adjusted values
GFR <30 mL/min: do not use, not reliable

Prognostic threshold: 1000 pg/mL Observation Date Value Abnormality Reference (Units ) Status BNP, Pro-hormone 07/31/2024 14:08:18 784 Above high no rmal <300 (pg/mL) Final Performing Location [facility] [address] [facility] [address]
--- OUTSIDE RECORDS SUMMARY | 2024-11-06 08:59 | External Medical Summary | Summary of Care ---
Author Name Unknown Organization [facility] Address [address] [facility] [place] [address] Phone [phone] Care Team Providers Care Bus Greaser Name Role Phone Xavier Zavala MD Primary Care Provide r Reason for Visit * Reason Onset Date Comments No Show 07/28/2024 [place] No Show Auto mation Encounter Details Date Type Department Care Team (Late st Contact Info) Description 07/28/2024 Telephone Family Medicine [address] [place] [phone] Isha Santiago MD [address] [place] [address] [place] [phone] No Show ([place] No Show Automation) Allergies Active Allergy Reactions Criticality Noted Date [...] as of this encounter (statuses as of 07/28/2024) Medications Melatonin 5 MG Tablet Daily at [...] persistent asthma without complication 2.5 mg NEBULIZER [id number] 07/22/2018 Active documented as of this encounter (statuses as of 07/28/2024) Active Problems Problem Noted Date Diagnosed Date [...] as of this encounter (statuses as of 07/28/2024) Resolved Problems Problem Noted Date Diagnosed Date [...] as of this encounter (statuses as of 07/28/2024) Immunizations Name Administration Dates Next Due Hepatitis [...] No 07/26/2024 Does the household have a [facility] source of income? (Household - for ages [...] encounter Miscellaneous Notes * Telephone Encounter - Iah, No Show - 07/28/2024 4:55 AM EST Dear Kandi Spivey, Looks like you missed an appointment with ISHA FLORENTINO on 07/25/2024 at 03:20 PM. If you haven't already rescheduled, you have a couple of options: Reschedule in [email or web address] Call us at [phone] Can't make a future appointment? Cancel and let someone else have your spot! It's easy to do via [email or web address] or by calling us. Thanks for trusting [facility] with your care. We hope to see you back in our office soon. Sincerely, ISHA FLORENTINO documented in this encounter Plan of Treatment Upcoming Encounters Date Type Department Care Team (Late st Contact Info) Description 07/31/2024 1:00 PM EST Office Visit Pulmonary Medicine, [facility] [address] [facility] [place] [address] Deep Frank MD [address] [place] [address] 08/01/2024 2:00 PM EST Office Visit Family Medicine [address] [phone] Isha Santiago MD [address] [place] [address] [place] [phone] 01/01/2025 2:30 PM EDT Cardiac Studies Cardiac Studies, [facility] [address] [facility] [place] [address] 01/09/2025 3:00 PM EDT Office Visit Pulmonary Medicine, [facility] 132 [facility] [place] [address] Deep Frank MD [address] [place] [address] 01/24/2025 2:20 PM EDT Office Visit Family Medicine [address] [phone] Xavier Zavala MD [address] [place] [address] [place] [address] 01/25/2025 2:30 PM EDT Office Visit Cardiology [address] [place] [address] Akshat Che PA-C [address] [place] [address] 03/05/2025 2:20 PM EDT Office Visit Dermatology [address] [place] [address] Lois Batista PA-C [address] [place] [address] [place] [address] 08/15/2025 2:20 PM EST Office Visit Family Medicine [address] [place] [phone] Xavier Zavala MD [address] [place] [address] [place] [address] Health Maintenance Due Date Last Done Comments DTap/Tdap Vaccines (1 - Tdap) 1959 Adult Wellness Visit 2008 Zoster Vaccines (2 of 3) 07/14/2012 05/19/2012 *BISPHONATE OR OTHER ACCEPTABLE MEDICATION NEEDED FOR OSTEOPOROSIS (REFER TO SMARTSET #1146) 07/03/2022 CKD HGB USE SMARTSET 44868 06/30/202306/30, 11/04/2021, 07/30/2021, Additional history exists CKD PHOS USE SMARTSET 09344 06/30/202306/18, 08/25/2021, 09/12/2020, Additional history exists COVID-19 Vaccine ( season) 2024 GFR 04/20/2024 10/20/2023, 03/20, 01/07/2023, Additional history exists DXA Scan 08/03/2024 08/03/2022, 03/20, 02/04/2012 Albumin/Creatinine Ratio 10/19/2024 024, 06/30/2022, 08/25/2021, Additional history exists TSH 10/19/2024 10/20/2023, 12/18, 06/23/2021, Additional history exists Depression Monitoring 07/26/2025 07/26/2024 Pneumococcal Vaccine: 50+ Years Completed 08/21/2014, 04/03/2011 Hepatitis B Vaccine Completed 12/09/2020, 08/01/2020, 06/07/2020 VITAMIN D LEVEL ONCE IN A LIFETIME-USE SMARTSET# 01552 Completed 06/30/2022, 08/25/2021, 01/16/2020, Additional history exists [...] filedocumented as of this encounter Care Teams Bus Greaser Relationship Specialty Start Date End Date Xavier Zavala MD [address] [place] [address] [place] [phone] PCP - General Family Medicine 04/28/21 documented as of this encounter
--- OUTSIDE RECORDS SUMMARY | 2024-11-06 08:59 | External Medical Summary | Summary of Care ---
Author Name Unknown Organization [facility] Address [address] [place] [address] Phone [phone] Care Team Providers Care Hoop Punch And Coiler Operator Name Role Phone Xavier Zavala MD Primary Care Provide r Encounter Details Date Type Department Care Team (Late st Contact Info) Description 07/31/2024 Telephone Family [address] [phone] Xavier Zavala MD [address] [place] [address] [place] [address] Allergies Active Allergy Reactions [...] as of this encounter (statuses as of 07/31/2024) Medications Melatonin 5 MG Tablet Daily at [...] persistent asthma without complication 2.5 mg NEBULIZER [id number] 07/22/2018 Active documented as of this encounter (statuses as of 07/31/2024) Active Problems Problem Noted Date Diagnosed Date [...] as of this encounter (statuses as of 07/31/2024) Resolved Problems Problem Noted Date Diagnosed Date [...] as of this encounter (statuses as of 07/31/2024) Immunizations Name Administration Dates Next Due Hepatitis [...] encounter Miscellaneous Notes * Telephone Encounter - Ashley Hummel PHARM Tech - 07/31/2024 11:53 AM EST Pharmacy called stating pt was in the hospital and told her that she was taken off some of her meds. Pharmacy was trying to see which meds because pt didn't know. Pharmacy said she will wait til after hospital follow up. Thanks, Ashley Hummel Bridge Painter Helper [facility] 07/31/2024,11:54 AM documented in this encounter Plan of Treatment Upcoming Encounters Date Type Department Care Team (Late st Contact Info) Description 07/31/2024 1:00 PM EST Office Visit Pulmonary Medicine, [address] [place] [address] Deep Frank MD [address] [place] [address] 08/01/2024 2:00 PM EST Office Visit Family [address] [phone] Cynthia Santiago MD [address] [place] [address] [place] [phone] 08/02/2024 12:00 PM EST Home Visit Care Coordination and Integration [address] [place] [address] [facility] Rail Switch Operator [address] [place] [address] 01/01/2025 2:30 PM EDT Cardiac Studies Cardiac Studies, [facility] [place] [address] 01/09/2025 3:00 PM EDT Office Visit Pulmonary Medicine, [facility] [place] [address] Deep Frank MD [address] [place] [address] 01/24/2025 2:20 PM EDT Office Visit Family [address] [phone] Xavier Zavala MD [address] [place] [address] [place] [address] 01/25/2025 2:30 PM EDT Office Visit Cardiology [address] [place] [address] Akshat Che PA-C [address] [place] [address] 03/05/2025 2:20 PM EDT Office Visit Dermatology [address] [place] [address] Lois Batista PA-C [address] [place] [address] [place] [address] 08/15/2025 2:20 PM EST Office Visit Family Medicine [address] [place] [phone] Xavier Zaavla MD [address] [place] [address] [place] [address] Health Maintenance Due Date Last Done Comments DTap/Tdap Vaccines (1 - Tdap) 1959 Adult Wellness Visit 2008 Zoster Vaccines (2 of 3) 07/14/2012 05/19/2012 *BISPHONATE OR OTHER ACCEPTABLE MEDICATION NEEDED FOR OSTEOPOROSIS (REFER TO SMARTSET #1146) 07/03/2022 CKD PHOS USE SMARTSET 49566 06/30/202306/18, 08/25/2021, 09/12/2020, Additional history exists COVID-19 Vaccine ( season) 2024 GFR 04/20/2024 10/20/2023, 03/20, 01/07/2023, Additional history exists DXA Scan 08/03/2024 08/03/2022, 03/20, 02/04/2012 Albumin/Creatinine Ratio 10/19/2024 024, 06/30/2022, 08/25/2021, Additional history exists TSH 10/19/2024 10/20/2023, 12/18, 06/23/2021, Additional history exists CKD HGB USE SMARTSET 63203 07/23/202507/23, 07/22/2024, 07/21/2024, Additional history exists Depression Monitoring 07/26/2025 07/26/2024 Pneumococcal Vaccine: 50+ Years Completed 08/21/2014, 04/03/2011 Hepatitis B Vaccine Completed 12/09/2020, 08/01/2020, 06/07/2020 VITAMIN D LEVEL ONCE IN A LIFETIME-USE SMARTSET# 98123 Completed 06/30/2022, 08/25/2021, 01/16/2020, Additional history exists [...] filedocumented as of this encounter Care Teams Hoop Punch And Coiler Operator Relationship Specialty Start Date End Date Xavier Zavala MD [address] [place] [address] [place] [address] PCP - General Family Medicine 04/28/21 documented as of this encounter
--- OUTSIDE RECORDS SUMMARY | 2024-11-06 08:59 | External Medical Summary | Summary of Care ---
Author Name Unknown Organization [facility] Address [address] [place] [address] Phone [phone] Care Team Providers Care Dray Driver Name Role Phone Xavier Zavala MD Primary Care Provide r Encounter Details Date Type Department Care Team (Late st Contact Info) Description 07/28/2024 Orders Only Family Medicine [address] [phone] Xavier Zavala MD [address] [place], [place] [address] [address] Allergies Active Allergy Reactions Criticality Noted Date [...] persistent asthma without complication 2.5 mg NEBULIZER [id number] 07/22/2018 Active documented as of this encounter [...] 1:00 PM EST Office Visit Pulmonary Medicine, [address] [place] [address] Deep Frank [facility] [address] 08/01/2024 2:00 PM EST Office Visit Family Medicine [address] [place] [phone] Cynthia Santiago MD [address] [place] [address] [place] [phone] 01/01/2025 2:30 PM EDT Cardiac Studies Cardiac Studies, [address] [place] [address] 01/09/2025 3:00 PM EDT Office Visit Pulmonary Medicine, [facility] [place] [address] Deep Frank MD [address] [place] [address] 01/24/2025 2:20 PM EDT Office Visit Family Medicine [address] [place] [phone] Xavier Zavala MD [address] [place] [address] [place] [address] 01/25/2025 2:30 PM EDT Office Visit Cardiology [address] [place] [address] Akshat Che PA-C [address] [place] [address] 03/05/2025 2:20 PM EDT Office Visit Dermatology [address] [place] [address] Lois Batista PA-C [address] [place] [address] [place] [address] 08/15/2025 2:20 PM EST Office Visit Family Medicine [address] [place] [phone] Xavier Zavala MD [address] [place] [address] [place] [address] Pending Results Name Type Priority Associated Diagnoses Date /Time CHEMISTRY-OUTSIDE Lab Routine 025 CHEMISTRY-OUTSIDE Lab Routine 025 CHEMISTRY-OUTSIDE Lab Routine 025 Health Maintenance Due Date Last Done Comments DTap/Tdap Vaccines (1 - Tdap) 1959 Adult Wellness Visit 2008 Zoster Vaccines (2 of 3) 07/14/2012 05/19/2012 *BISPHONATE OR OTHER ACCEPTABLE MEDICATION NEEDED FOR OSTEOPOROSIS (REFER TO SMARTSET #1146) 07/03/2022 CKD HGB USE SMARTSET 90469 06/30/202306/30, 11/04/2021, 07/30/2021, Additional history exists CKD PHOS USE SMARTSET 41387 06/30/202306/18, 08/25/2021, 09/12/2020, Additional history exists COVID-19 [...] D LEVEL ONCE IN A LIFETIME-USE SMARTSET# 50554 Completed 06/30/2022, 08/25/2021, 01/16/2020, Additional history exists [...] filedocumented as of this encounter Care Teams Dray Driver Relationship Specialty Start Date End Date Xavier Zavala MD [address] [place] [address] [place] [address] PCP - General Family Medicine 04/28/21 documented as of this encounter
--- OUTSIDE RECORDS SUMMARY | 2024-11-06 08:59 | External Medical Summary | Summary of Care ---
Author Name Unknown Organization [facility] Address [address] [place] [address] Phone [phone] Care Team Providers Care Manager Engagement Name Role Phone Xavier Zavala MD Primary [...] persistent asthma without complication Xavier Zavala MD [address] [place] [address] [place] [address] Phone: tel: fax: Referral ID Status Reason Start Date Expiration Date Visits Requested Visits Authorized [id number] Authorized Specialty Services Required [phone] Encounter Details Date Type Department Care Team (Late st Contact Info) Description 07/31/2024 1:00 PM EST Office Visit Pulmonary Medicine, [facility] [address] [facility] [place] [address] Deep Dubois MD [address] [facility] [place] [phone] Ascending aorta enlargement (HCC)*; Hiatal hernia; Nocturnal [...] persistent asthma without complication 2.5 mg NEBULIZER [id number] 07/22/2018 Active documented as of this encounter [...] note were not included. 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 DME Supplier: [facility]. Flu Vaccine: 2023 Pneumovax: 2010 Prevnar: [...] Ellipta 200-62.5-25 MCG/ACT Aerosol Powder Breath Activated (Eemmqbamasr-Zjclqednwjjj-Kbxmpnihaq) amLODIPine Besylate 5 MG Oral Tablet (Norvasc) [...] EGD, FLEXIBLE, DIAGNOSTIC 11/22/2018 hiatal hernia / [facility] EXPLORATION OF ABDOMEN x 3 LIGATE/CUT OVIDUCT(S) [...] Stability Do you currently live in a chcf or have no steady place to sleep [...] P. Flu Vaccine: 2023 Pneumovax: 2010 Prevnar: 2014 COVID 19: x2. MMRC Dyspnea Scale = 1 (I get short of breath when hurrying on level ground or walking up a slight hill) documented in this encounter Plan of Treatment Upcoming Encounters Date Type Department Care Team (Late st Contact Info) Description 08/01/2024 2:00 PM EST Office Visit Family [address] [phone] Cynthia Santiago MD [address] [place] [address] [place] [phone] 08/02/2024 12:00 PM EST Home Visit Care Coordination and Integration [address] [facility] [place] [address] Sweetie Cline [facility] Advisor [address] [place] [address] 08/22/2024 2:30 PM EST PulmDiagnostic Pulmonary Function Lab, [place] [address] [facility] [place] [address] [place], [address] [facility] [place] [address] 09/14/2024 3:00 PM EST Office Visit Pulmonary Medicine, [facility] [address] [facility] [place] [address] Deep Dubois MD [address] [place] [address] 01/01/2025 2:30 PM EDT Cardiac Studies Cardiac Studies, [facility] [address] [facility] [place] [address] 01/09/2025 3:00 PM EDT Office Visit Pulmonary Medicine, [facility] [address] [facility] [place] [address] Deep Dubois MD [address] [place] [address] 01/24/2025 2:20 PM EDT Office Visit Family Medicine [address] [place] [phone] Xavier Zavala MD [address] [place] [address] [place] [address] 01/25/2025 2:30 PM EDT Office Visit Cardiology [address] [place] [address] Akshat Che PALuciano [address] [facility] [place] [address] 03/05/2025 2:20 PM EDT Office Visit Dermatology [address] [place] [address] Lois Batista PA-C [address] [place] [address] [place] [address] 08/15/2025 2:20 PM EST Office Visit Family Medicine [address] [place] [phone] Xavier Zavala MD [address] [place] [address] [place] [id number] Pending Results Name Type Priority Associated Diagnoses Date /Time BNP, NT-PRO Lab Routine Ascending aorta enlargement (HCC) Hiatal hernia 07/31/2024 2:08 PM EST Scheduled Orders Name Type Priority Associated Diagnoses [...] SMARTSET #1146) 07/03/2022 CKD PHOS USE SMARTSET 22220 06/30/202306/18, 08/25/2021, 09/12/2020, Additional history exists COVID-19 Vaccine ( - season) 2024 GFR 04/20/2024 10/20/2023, 03/20, 01/07/2023, Additional history exists DXA Scan 08/03/2024 08/03/2022, 03/20, 02/04/2012 Albumin/Creatinine Ratio 10/19/2024 024, 06/30/2022, 08/25/2021, Additional history exists TSH 10/19/2024 10/20/2023, 12/18, 06/23/2021, Additional history exists CKD HGB USE SMARTSET 52162 07/23/202507/23, 07/22/2024, 07/21/2024, Additional history exists Depression Monitoring 07/26/2025 07/26/2024 Pneumococcal Vaccine: 50+ Years Completed 08/21/2014, 04/03/2011 Hepatitis B Vaccine Completed 12/09/2020, 08/01/2020, 06/07/2020 VITAMIN D LEVEL ONCE IN A LIFETIME-USE SMARTSET# [id number] Completed 06/30/2022, 08/25/2021, 01/16/2020, Additional history exists [...] Hypoxemia documented in this encounter Care Teams Manager Engagement Relationship Specialty Start Date End Date Xavier Zavala MD [address] [place] [address] [place] [id number] PCP - General Family Medicine 04/28/21 documented as of this encounter
--- OUTSIDE RECORDS SUMMARY | 2024-11-06 08:59 | External Medical Summary | Summary of Care ---
Author Name Unknown Organization [facility] Address [address] [place] [address] Phone [phone] Care Team Providers Care Supervisor Cd Area Name Role Phone Xavier Zavala MD Primary Care Provide r Reason for Visit * Reason Comments Outpatient Testing Encounter Details Date Type Department Care Team (Late st Contact Info) Description 07/31/2024 2:20 PM EST Laboratory Laboratory, [facility] [address] [place] [address] [facility] [address] [place] [address] Arrived Allergies Active Allergy Reactions Criticality Noted Date [...] persistent asthma without complication 2.5 mg NEBULIZER TCXRX1L 07/22/2018 Active documented as of this encounter [...] No 07/26/2024 Does the household have a [facility] source of [facility]? (Household - for ages [...] 2:00 PM EST Office Visit Family Medicine [address] [place] [phone] Cynthia Santiago MD [address] [place] [address] [place] [phone] 08/02/2024 12:00 PM EST Home Visit Care Coordination and Integration [address] [place] [address] Sweetie Cline, [facility] [employer] [address] [place] [address] 08/22/2024 2:30 PM EST PulmDiagnostic Pulmonary Function Lab, [facility] [address] [facility] [place], [place] [address] [place], [address]ft [address] [facility] [place], [place] [address] 09/14/2024 3:00 PM EST Office Visit Pulmonary Medicine, [facility] [address] [facility] [place] [address] Deep Frank MD [address] [place] [address] 01/01/2025 2:30 PM EDT Cardiac Studies Cardiac Studies, [address] [place] [address] 01/09/2025 3:00 PM EDT Office Visit Pulmonary Medicine, [facility] [address] [facility] [place] [address] Deep Frank MD [address] [place] [address] 01/24/2025 2:20 PM EDT Office Visit Family Medicine [address] [place] [phone] Xavier Zavala MD [address] [place] [address] [place] [address] 01/25/2025 2:30 PM EDT Office Visit Cardiology [address] [place] [address] Akshat Che PATreyC [address] [facility] [place] [address] 03/05/2025 2:20 PM EDT Office Visit Dermatology [address] [place] [address] Lois Batista PA-C [address] [place] [address] [place] [address] 08/15/2025 2:20 PM EST Office Visit Family Medicine [address] [place] [phone] Xavier Zavala MD [address] [place] [address] [place] [id number] Health Maintenance Due Date Last Done Comments DTap/Tdap Vaccines (1 - Tdap) 1961 Adult Wellness Visit 2008 Zoster Vaccines (2 of 3) 07/14/2012 05/19/2012 *BISPHONATE OR OTHER ACCEPTABLE MEDICATION NEEDED FOR OSTEOPOROSIS (REFER TO SMARTSET #1146) 07/03/2022 CKD PHOS USE SMARTSET 01415 06/30/202306/18, 08/25/2021, 09/12/2020, Additional history exists COVID-19 Vaccine ( - season) 2024 GFR 04/20/2024 10/20/2023, 03/20, 01/07/2023, Additional history exists DXA Scan 08/03/2024 08/03/2022, 03/20, 02/04/2012 Albumin/Creatinine Ratio 10/19/2024 024, 06/30/2022, 08/25/2021, Additional history exists TSH 10/19/2024 10/20/2023, 12/18, 06/23/2021, Additional history exists CKD HGB USE SMARTSET 56002 07/23/202507/23, 07/22/2024, 07/21/2024, Additional history exists Depression Monitoring 07/26/2025 07/26/2024 Pneumococcal Vaccine: 50+ Years Completed 08/21/2014, 04/03/2011 Hepatitis B Vaccine Completed 12/09/2020, 08/01/2020, 06/07/2020 VITAMIN D LEVEL ONCE IN A LIFETIME-USE SMARTSET# [id number] Completed 06/30/2022, 08/25/2021, 01/16/2020, Additional history exists [...] filedocumented as of this encounter Care Teams Supervisor Cd Area Relationship Specialty Start Date End Date Xavier Zavala MD [address] [place] [address] [place] [phone] PCP - General Family Medicine 04/28/21 documented as of this encounter
[2024-11-06 09:01] LABS: Basophils # (auto) 0.04 K/uL (0.00-0.20); Basophils % (auto) 0.4 %; Eosinophils # (auto) 0.53 K/uL (0.00-0.50); Eosinophils % (auto) 5.8 %; Hematocrit (blood only) 30.3 % (37.0-47.0); Hemoglobin 9.5 g/dl (12.0-16.0); Immature Granulocytes # (auto) 0.08 K/uL (0.01-0.20); Immature Granulocytes % (auto) 0.9 %; Lymphocytes # (auto) 1.59 K/uL (1.20-3.40); Lymphocytes % (auto) 17.3 %; Mean Corpuscular Hemoglobin 30.5 pg (25.0-34.0); Mean Corpuscular Hgb Conc 31.4 g/dL (32.0-36.0); Mean Corpuscular Volume 97.4 fL (80.0-100.0); Monocytes # (auto) 1.12 K/uL (0.11-0.59); Monocytes % (auto) 12.2 %; Neutrophils # (auto) 5.82 K/uL (1.40-6.50); Neutrophils % (auto) 63.4 %; Platelet Count 152 K/uL (130-400); RDW Coefficient of Variation 14.9 % (11.5-14.5); RDW Standard Deviation 53.1 fL (36.4-46.3); Red Blood Count 3.11 M/uL (4.20-5.40); White Blood Count 9.18 K/ul (4.8-10.8)
[2024-11-06 09:14] LABS: Albumin Globulin Ratio 1.7 (0.9-2); Albumin Level 3.3 gm/dl (3.4-5.0); BUN Creatinine Ratio 18.5 (10-20); Bilirubin,Total 0.5 mg/dl (0.2-1.0); Calcium 8.1 mg/dl (8.6-10.3); Creatinine Clr Calc Pharmacy 27.2 ml/min; Magnesium 1.9 mg/dl (1.7-2.4); Potassium 4.2 mmol/L (3.5-5.1); Total Protein 5.3 gm/dl (6.0-8.3)
[2024-11-06 09:24] LABS: Prothrombin Time 10.4 Seconds (9.0-12.0)
[2024-11-06 09:28] LABS: Thyroid Stimulating Hormone 1.239 uIu/ml (0.300-4.500)
[2024-11-06 09:32] LABS: Base Excess VBG -0.2 mEq/L; HCO3 VBG 30 mmol/L; Oxygen Saturation VBG 71.6 %; PCO2 VBG 79 mmHg (38-50); PO2 VBG 41 mmHg; pH VBG 7.19 (7.36-7.41)
--- NOTE | 2024-11-06 09:33 | XRay Report ---
XR femur LT 2V routine, XR knee LT 1 or 2V routine CLINICAL HISTORY: knee pain COMPARISON: None FINDINGS: Evaluation of the left hip is limited by habitus and technical factors. No fracture or dis location seen at the left femur or the left knee. Left knee prosthesis shows no hardware complication . IMPRESSION: No fracture seen. ACT 112: Negative or not required by law. Electronically signed by: Jonathan Rogers M.D. 11/06/2024 9:31 AM
--- NOTE | 2024-11-06 09:35 | XRay Report ---
XR foot RT min 3V routine CLINICAL HISTORY: bruisin to great toe COMPARISON: None FINDINGS: There is an acute intra-articular mildly comminuted mildly displaced fracture proximally a t the first proximal phalanx. There is mild cortical step-off and gap at the proximal articular surfa ce of the first proximal phalanx. No other fracture or dislocation seen of the left foot. There are c hronic soft tissue calcifications plantar to the calcaneus. IMPRESSION: Acute fracture first proximal phalanx. ACT 112: Negative or not required by law. Electronically signed by: Jonathan Rogers M.D. 11/06/2024 9:33 AM
--- NOTE | 2024-11-06 09:36 | XRay Report ---
XR chest 1V portable CLINICAL HISTORY: weakness COMPARISON STUDY: 07/21/2024 FINDINGS: There is stable prominent cardiomegaly with increased pulmonary vascular congestion. There is increased opacity at the left lung base with obscuration of the left hemidiaphragm. Stable mild st randing at the right lung base. No pneumothorax. IMPRESSION: 1. Increased CHF. 2. Increased opacity at the left lung base could represent pneumonia, atelectasis, or pleural effusio n. ACT 112: Negative or not required by law. Electronically signed by: Jonathan Rogers M.D. 11/06/2024 9:34 AM
[2024-11-06] MEDS: SODIUM CHLORIDE 0.9% 500 ML IV ONE (10:04)
--- NOTE | 2024-11-06 10:11 | History & Physical Report ---
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 History obtained from pt's daughter - pt has had multiple falls over the last few days. Has been noncompliant with recommended CPAP and family is unsure that pt is using O2 correctly at night. #Acute on chronic hypoxemic respiratory failure #CO2 retention/Obesity hypoventilation syndrome #Moderate Aortic Stenosis/Moderate to Severe Aortic Insufficiency #HFpEF - Admit to PCU - Continue BiPAP for respiratory support - trend VBG - CT chest to further delineate left lung base opacity - Check BNP, troponin - Empiric antibiotic coverage for possible pneumonia - spoke with pharmacy due to pt's multiple allergies, will cover with Zosyn/vancomycin - Blood cultures, sputum culture - Update ECHO - will determine need for cardio consult once this is available - Consult pulmonology #YUNI on CKD - baseline creatinine appears to be 1.1-1.2, decreased urine output over last few days - Hold nephrotoxins - Received 500 cc IVF in the ED - Trend labs #Anemia - new from prior admission, no clear source of blood loss - Check FOBT - PPI - Trend H&H #Right first phalanx fracture - Ortho consult - Pain control #Recurrent falls (new over past few days) - Fall precautions - Eventual PT/OT once more medically stable - Family would like to consider rehab or increased level of care such as assisted living at discharge, concerned about pt's ability to live alone safely #Intermittent hypotension - Gentle IVF started - If persistent, consider albumin. Pt seen and reviewed with collaborating physician, Dr. Morrow. Plan of care discussed and as outlined above. Code status: full code per my discussion with pt's daughterEmily DVT prophylaxis: pending CT head Initial time spent on admission H&P: 95 minutes Ben Rosario PA-C Addendum: Repeat blood gas showed pH 7.21, CO2 74. Spoke with respiratory therapy. Due to pt's lethargy, no significant tidal volume unless pt's frequently aroused with sternal rub. Recommending consider intubation. Spoke with Dr. Morrow and Dr. Hoang - will plan to intubate patient in the ED and transfer to ICU Reached out to lead atg developer to notify of planned transfer to ICU. Daughter, Emily, updated on change to plan of care - all questions answered. Imaging studies still pending. BioFire negative. Procal normal at 0.06. Ben Rosario PA-C Addendum: CT chest results reviewed - 1. Well-positioned endotracheal tube. 2. CHF without pleural effusions. 3. Dense consolidation at the majority of the left lower lobe and bandlike and patchy consolidation scattered at the right lower lobe. CT head and C-spine were negative Continue antibiotics as previously ordered. SubQ heparin ordered for DVT prophylaxis. 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 En route she was given lorazepam 1 mg IV, which resulted in worsening of her respiratory status. In the ED, she was placed on BiPAP after VBG showed pH of 7.19, CO2 79. Currently, she is on BiPAP and still lethargic. She will answer yes/no questions with grunts but otherwise provides minimal history. Additional history was obtained by review of her outpatient records in [facility] and from her daughter (Emily) via phone. Pt lives alone but family is increasingly concerned that this is no longer safe for patient. They noted pt has had increased falls over the last few days including one Wednesday requiring EMS for lift assist around 3 am. Pt declined transport to the ED at that time. Family notes that pt is noncompliant with CPAP for ERIK and often not wearing O2 correctly at night. Pt has become progressively more weak over the last few days as well. She has not had any vomiting or diarrhea to their knowledge. She did have some nasal congestion (mild) last week but no fevers that they are aware of. She has been compliant with medications but they have noted she is urinating less over the last few days even with taking her furosemide and drinking "lots" of water. No complaints of dysuria. She does follow with pulmonology for multifactorial dyspnea - moderate to severe /AR, large hiatal hernia, restrictive lung disease (likely due to hiatal hernia/BMI). She is due for repeat ECHO in December to f/u on aortic stenosis. ECHO 06/29/24 - severely increased (concentric) LV wall thickness, normal LV wall motion, LVEF 65-69%, mildly abnormal (grade I) diastolic function, moderately calcified aortic valve, moderate AoV stenosis, moderate to severe AoI, severe calcification of the posterior mitral valve annulus with restricted posterior mitral valve leaflet mobility. Allergies Allergy/AdvReac Type Severity Reaction Status Date / Time azathioprine Allergy Intermediate HIVES Verified 03/27/23 13:47 gabapentin Allergy Intermediate hives Verified 03/27/23 13:47 hydroxychloroquine Allergy Intermediate HIVES Verified 03/27/23 13:47 ibuprofen Allergy Intermediate HIVES Verified 03/27/23 13:47 methotrexate Allergy Intermediate hives Verified 03/27/23 13:47 minocycline Allergy Intermediate Hives Verified 03/27/23 13:47 NSAIDS (Non-Steroidal Allergy Intermediate Hives Verified 03/27/23 13:47 Anti-Inflamma phenol Allergy Intermediate hives Verified 03/27/23 13:47 risedronate sodium Allergy Intermediate HIVES Verified 03/27/23 13:47 doxepin Allergy Mild HIVES Verified 03/27/23 13:47 leflunomide Allergy Mild HIVES Verified 03/27/23 13:47 sulfasalazine Allergy Mild HIVES Verified 03/27/23 13:47 Tetracyclines Allergy Mild HIVES Verified 03/27/23 13:47 hydromorphone AdvReac Intermediate hallucinate Verified 03/27/23 13:47 couldn't walk or talk teriparatide AdvReac Intermediate MALAISE, Verified 03/27/23 13:47 LOWER LEG EDEMA AMINOQUINOLINE Allergy Intermediate HIVES--PER Uncoded 03/27/23 13:47 GMG Home Medications Medication Instructions Recorded Confirmed Type albuterol sulfate 90 mcg/actuation 2 puff inhalation Q4 PRN Shortness 11/15/18 11/06/24 History aerosol inhaler (Ventolin HFA) Of Breath Or Wheezing duloxetine 30 mg capsule,delayed 30 mg PO QAM 11/15/18 11/06/24 History release melatonin 5 mg tablet 5 mg PO HS 11/15/18 11/06/24 History metoprolol tartrate 25 mg tablet 12.5 mg PO BID 11/15/18 11/06/24 History montelukast 10 mg tablet 10 mg PO HS 11/15/18 11/06/24 History (Singulair) allopurinol 100 mg tablet 200 mg PO QAM 03/21/22 11/06/24 History docusate sodium 100 mg capsule 100 mg PO BID 03/21/22 11/06/24 History iron,carbonyl 65 mg-vitamin C 125 1 tab PO 3XWK 03/21/22 11/06/24 History mg tablet,delayed release (Vitron-C) levothyroxine 150 mcg tablet 150 mcg PO DAILYBB 03/21/22 11/06/24 History omeprazole 40 mg capsule,delayed 40 mg PO QAM 03/21/22 11/06/24 History release prednisone 5 mg tablet 5 mg PO QAM 03/21/22 11/06/24 History Oxygen Home #1 ea 03/28/22 07/22/24 Rx ascorbic acid (vitamin C) 500 mg 500 mg PO QAM 03/27/23 11/06/24 History tablet (Vitamin C) atorvastatin 10 mg tablet 10 mg PO 3XWK 03/27/23 11/06/24 History sennosides 8.6 mg tablet (senna) 8.6 mg PO AMHS 03/27/23 11/06/24 History Lactobacillus acidophilus 250 2,000 mmu cells PO DAILY 07/22/24 11/06/24 History million cell capsule (Probiotic Acidophilus) fluticasone fur. 200 mcg-umeclid 1 ea inhalation QA 07/22/24 11/06/24 History 62.5 mcg-vilant 25 mcg inhalat.powder (Trelegy Ellipta) furosemide 20 mg tablet (Lasix) 20 mg PO QAM 07/22/24 11/06/24 History kwflwbdu-mwm-ezfqdu 5 mg-zeaxanth 3 cap PO QAM 07/22/24 11/06/24 History 1 mg-bilberry 7.5 mg-herbal capsule (MedTest DX Health Formula) amlodipine 10 mg tablet 10 mg PO DAILY #30 tabs 07/23/24 11/06/24 Rx lisinopril 40 mg tablet 40 mg PO DAILY #30 tabs 07/23/24 11/06/24 Rx pregabalin 100 mg capsule 100 mg PO BID 11/06/24 11/06/24 History Past Med/Surg History Problem List (Updated 11/06/24 @ 16:35 by Rashad Hoang MD) Acute knee pain (Acute) Fall (Acute) Closed fracture of one or more phalanges of foot (Acute) Acute metabolic encephalopathy (Acute) Acute on chronic respiratory failure with hypoxia and hypercapnia (Acute) Obesity hypoventilation syndrome Acute kidney injury superimposed on CKD Hypotension Recurrent falls Acute on chronic hypoxic respiratory failure Elevated troponin (Acute) Rhinovirus infection (Acute) Hypoxia (Acute) Acute metabolic encephalopathy Hyperlipidemia Viral pneumonia Hypothyroidism (acquired) Hypertension, accelerated Chronic gout Asthma with exacerbation Acute and chronic respiratory failure SOB (shortness of breath) (Acute) ERIK (obstructive sleep apnea) Nocturnal hypoxia reason for oxygen Morbid obesity Hypothyroidism Hypertension Depression Generalized weakness CKD (chronic kidney disease), stage III (HFpEF) heart failure with preserved ejection fraction Contusion of leg, right (Acute) Hernia, ventral (Acute) Pulmonary edema Community acquired pneumonia Medical History Asthma Gout Spinal stenosis GERD (gastroesophageal reflux disease) Deep vein thrombosis 2011 after knee replacement--no longer on blood thinners Bilateral cataracts Anxiety Chronic obstructive pulmonary disease On home oxygen therapy 2L hs n/c Surgical History History of total abdominal hysterectomy and bilateral salpingo-oophorectomy History of bilateral tubal ligation Status post correction of deviated nasal septum History of carpal tunnel release of both wrists History of arthroscopy of left knee History of total left knee replacement (TKR) History of bowel resection History of cholecystectomy History of colonoscopy History of esophagogastroduodenoscopy (EGD) History of tooth extraction all teeth removed History of tonsillectomy Family History Other Hypertension No family history of adverse response to anesthesia Social History Smoking Status: Unknown if ever smoked Second Hand Exposure: No; Do You Dip or Chew Tobacco: No; Hx Alcohol Use: No Hx Substance Use: No Preferred Language: Sami Communication Ability: Effective Customs Inspector Required: No Beliefs That Will Affect Care: None marital status: / Current Living Situation: Alone How many Children do You have: 5 Feels Safe at Home: Yes Assistive Devices: Oxygen - Continuous and Walker Review of Systems Review of Systems: All systems reviewed & are unremarkable except as noted in Subjective Physical Exam Physical Exam: General: lethargic but arousable, answers yes/no questions but otherwise unable to provide history HEENT: no scleral icterus, dry oral mucosa Neck: supple, trachea midline Heart: regular, +murmur Lungs: diminished BS, faint bibasilar crackles Abdomen: soft, obese, +BS Extremities: no pedal edema, +ecchymosis of left knee Results & Data Results & Data Vital Signs (Past 12 Hours) Vital Signs Temp Pulse Pulse Resp BP BP Pulse Ox 11/06/24 10:08 75 13 95 11/06/24 10:04 76 20 94 11/06/24 08:59 75 20 91/69 L 95 11/06/24 08:42 98 11/06/24 08:41 92 11/06/24 08:37 74 20 110/53 L 94 11/06/24 08:30 36.7 C 74 20 110/53 L 90 11/06/24 08:30 75 11/06/24 08:25 80 L O2 Del Method O2 Flow Rate FiO2 11/06/24 10:08 40 11/06/24 10:04 Nasal Cannula 4 11/06/24 08:59 Non-rebreather 10 11/06/24 08:42 Non-rebreather 15 11/06/24 08:41 Non-rebreather 15 11/06/24 08:37 Nasal Cannula 2 11/06/24 08:30 Nasal Cannula 2 11/06/24 08:30 11/06/24 08:25 Nasal Cannula 2 Laboratory Results Lab Results 11/06/24 11/06/24 Range/Units 08:25 09:16 WBC 9.18 (4.8-10.8) K/ul RBC 3.11 L (4.20-5.40) M/uL Hgb 9.5 L (12.0-16.0) g/dl Hct 30.3 L (37.0-47.0) % MCV 97.4 (80.0-100.0) fL MCH 30.5 (25.0-34.0) pg MCHC 31.4 L (32.0-36.0) g/dL RDW Std Deviation 53.1 H (36.4-46.3) fL RDW Coeff of Nury 14.9 H (11.5-14.5) % Plt Count 152 (130-400) K/uL MPV 12.0 (9.4-12.4) fL Immature Gran % (Auto) 0.9 % Neut % (Auto) 63.4 % Lymph % (Auto) 17.3 % Stanley % (Auto) 12.2 % Eos % (Auto) 5.8 % Baso % (Auto) 0.4 % Neut # (Auto) 5.82 (1.40-6.50) K/uL Lymph # (Auto) 1.59 (1.20-3.40) K/uL Stanley # (Auto) 1.12 H (0.11-0.59) K/uL Eos # (Auto) 0.53 H (0.00-0.50) K/uL Baso # (Auto) 0.04 (0.00-0.20) K/uL Immature Gran # (Auto) 0.08 (0.01-0.20) K/uL PT 10.4 (9.0-12.0) Seconds INR 1.0 (0.9-1.1) VBG pH 7.19 L (7.36-7.41) VBG pCO2 79 H (38-50) mmHg VBG pO2 41 mmHg VBG HCO3 30 mmol/L VBG O2 Saturation 71.6 % VBG Base Excess -0.2 mEq/L Sodium 142 (136-145) mmol/L Potassium 4.2 (3.5-5.1) mmol/L Chloride 106 (98-107) mmol/L Carbon Dioxide 33 H (21-32) mmol/L Anion Gap 3 (3-11) BUN 40 H (6-23) mg/dl Creatinine 2.16 H (0.6-1.2) mg/dl Est Cr Clr Drug Dosing 27.2 ml/min eGFR 22.32 BUN/Creatinine Ratio 18.5 (10-20) Glucose 111 H (70-99(Fasting)) mg/dl Calcium 8.1 L (8.6-10.3) mg/dl Magnesium 1.9 (1.7-2.4) mg/dl Total Bilirubin 0.5 (0.2-1.0) mg/dl AST 12 L (13-39) U/L ALT 9 (7-52) U/L Alkaline Phosphatase 56 (34-104) U/L Total Protein 5.3 L (6.0-8.3) gm/dl Albumin 3.3 L (3.4-5.0) gm/dl Globulin 2.0 L (2.5-4.0) gm/dl Albumin/Globulin Ratio 1.7 (0.9-2) TSH 1.239 (0.300-4.500) uIu/ml Diagnostic Findings Chest X-Ray 11/06/24 08:40 XR chest 1V portable CLINICAL HISTORY: weakness COMPARISON STUDY: 07/21/2024 FINDINGS: There is stable prominent cardiomegaly with increased pulmonary vascular congestion. There is increased opacity at the left lung base with obscuration of the left hemidiaphragm. Stable mild stranding at the right lung base. No pneumothorax. IMPRESSION: 1. Increased CHF. 2. Increased opacity at the left lung base could represent pneumonia, atelectasis, or pleural effusion. ACT 112: Negative or not required by law. Electronically signed by: Jonathan Rogers M.D. 11/06/2024 9:34 AM Femur X-Ray 11/06/24 08:40 XR femur LT 2V routine, XR knee LT 1 or 2V routine CLINICAL HISTORY: knee pain COMPARISON: None FINDINGS: Evaluation of the left hip is limited by habitus and technical factors. No fracture or dislocation seen at the left femur or the left knee. Left knee prosthesis shows no hardware complication. IMPRESSION: No fracture seen. ACT 112: Negative or not required by law. Electronically signed by: Jonathan Rogers M.D. 11/06/2024 9:31 AM Foot X-Ray 11/06/24 08:40 XR foot RT min 3V routine CLINICAL HISTORY: bruisin to great toe COMPARISON: None FINDINGS: There is an acute intra-articular mildly comminuted mildly displaced fracture proximally at the first proximal phalanx. There is mild cortical step- off and gap at the proximal articular surface of the first proximal phalanx. No other fracture or dislocation seen of the left foot. There are chronic soft tissue calcifications plantar to the calcaneus. IMPRESSION: Acute fracture first proximal phalanx. ACT 112: Negative or not required by law. Electronically signed by: Jonathan Rogers M.D. 11/06/2024 9:33 AM Knee X-Ray 11/06/24 08:40 XR femur LT 2V routine, XR knee LT 1 or 2V routine CLINICAL HISTORY: knee pain COMPARISON: None FINDINGS: Evaluation of the left hip is limited by habitus and technical factors. No fracture or dislocation seen at the left femur or the left knee. Left knee prosthesis shows no hardware complication. IMPRESSION: No fracture seen. ACT 112: Negative or not required by law. Electronically signed by: Jonathan Rogers M.D. 11/06/2024 9:31 AM Medications Administered Sodium Chloride (Nss) 500 mls @ 999 mls/hr IV .Q31M ONE Stop: 11/06/24 10:19 Last Admin: 11/06/24 10:04 Dose: 999 mls/hr Documented By: LYNETTE Discontinued Medications Acetaminophen (Ofirmev) 1,000 mg in 100 mls @ 400 mls/hr IV NOW STA Stop: 11/06/24 08:54 Last Infusion: 11/06/24 09:29 Dose: Infused Documented By: Admin: 11/06/24 08:52 Dose: 400 mls/hr Documented By: LYNETTE Supervising Physician Co-Signing Physician Notes 84 y/o female with chronic hypoxic respiratory failure on 3L of oxygen at [facility], OHS and sleep apnea on CPAP HS/non compliant with CPAP, 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 Pt nods "no" to chest pain and many other questions but doesn't verbalize any other words, appears lethargic and hence deemed unreliable with history. Per pt's daughter - pt has had multiple falls over the last few days. Has been noncompliant with recommended CPAP and family is unsure that pt is using O2 correctly at night. labs and imaging reviewed. Hemoglobin 9.5 [baseline hemoglobin around 12-13], VBG with CO2 retention, creatinine 2.16 [baseline creatinine around 1 point1.5, LFT WNL. Will get troponin and BNP. TSH WNL. Will get MRSA screen and respiratory pathogen panel. CXR suggestive of CHF versus pneumonia. Patient clinically dry on examination. Right foot x-ray with acute fracture of first proximal phalanx. X-ray left femur and left knee: No fracture. EKG with no acute ST-T changes. Acute problems: Acute on chronic hypoxemic and hypercapnic respiratory failure: VBG reviewed, patient lethargic, continue with BPAP, chest imaging reviewed. Will get CT chest/MRSA screen/bio fire. Vanco and Zosyn. Pulmonology consult. Will get blood culture and if possible sputum culture. Spoke w/ respiratory and RN, pt not maintaining tidal volume and saturation, will need intubated, ICU notified and pt will be transferred to ICU. Moderate aortic stenosis/moderate to severe aortic insufficiency: Will get echo, will get BNP. Patient clinically dry, and is hypotensive. Patient received 500 mL of IV fluid in the ED, blood pressure for now holding up low normal. Continue to monitor, consider albumin if blood pressure drops, c/w gentle ivf. if still not improving consider ICU for pressor support. YUNI over CKD: Received 500 cc of IV fluid in the ED, will await BNP and echo results . Until then very gentle IV fluid with 50 mL an hour. Trend labs. Avoid nephrotoxic's. Anemia: Hemoglobin drop from baseline, see above. FOBT, PPI, trend H&H. Right first phalanx fracture: Ortho consult. Recurrent falls:will get CT head and Ct c spine. PT/OT when appropriate. DVT Px: await fobt. SCDs until then. on Exam: GENERAL: lethargic, very occasionally opens eyes during conversation, NAD, BPAP. Appears very ill/sick/frail. Obese class III. HEENT: No pallor, no icterus. Pupils equal, round and reactive to light. Oral mucosa dry. NECK: No JVD, no neck masses. HEART: S1 and S2 heard. Regular rate and rhythm. No murmur, no gallop. BP low normal at bedside. RESPIRATORY SYSTEM: Normal AP diameter. No accessory muscle use. No wheezing, bb crackles. ABDOMEN: Soft, bowel sounds present, no facial grimacing, no distention. CENTRAL NERVOUS SYSTEM: No facial droop. Speech is clear. Obeys simple commands. Moves extremities. EXTREMITIES: No edema, no erythema seen. Left knee and left dorsum of great toe w/ ecchymoses. I have seen and examined the patient and have discussed the case with the provider above. I agree with the assessment and plan as stated. Critical care time spent: 45 min (3) Hypotension Hypotension type: unspecified hypotension type Qualified Code(s): I95.9 - Hypotension, unspecified (7) (HFpEF) heart failure with preserved ejection fraction Heart failure chronicity: unspecified Qualified Code(s): I50.30 - Unspecified diastolic (congestive) heart failure
[2024-11-06] MEDS: CALCIUM GLUCONATE 1,000 MG/60 ML BAG IV STA (10:17)
[2024-11-06] MEDS ORDERED: VANCOMYCIN CONSULT ACTIVE PRN (12:02)
[2024-11-06 12:04] LABS: Base Excess VBG -0.3 mEq/L; HCO3 VBG 30 mmol/L; Oxygen Saturation VBG < 60.0 %; PCO2 VBG 74 mmHg (38-50); PO2 VBG 29 mmHg; pH VBG 7.21 (7.36-7.41)
[2024-11-06] MEDS ORDERED: VANCOMYCIN HCL 2,750 MG in SODIUM CHLORIDE 0.9% 500 ML IV ONE (12:15)
--- NOTE | 2024-11-06 12:47 | Electrocardiogram Report ---
Test Reason : Blood Pressure : */* mmHG Vent. Rate : 71 BPM Atrial Rate : 71 BPM P-R Int : 264 ms QRS Dur : 146 ms QT Int : 450 ms P-R-T Axes : 25 61 2 degrees QTcB Int : 489 ms Sinus rhythm with 1st degree A-V block Possible Left atrial enlargement Right bundle branch block Abnormal ECG When compared with ECG of 21-Jul-2024 21:50, Criteria for Inferior infarct are no longer Present Confirmed by Tobi Alberts ([id number]) on 11/06/2024 12:47:12 PM Referred By: REFERRED SELF Confirmed By: Tobi Alberts
[2024-11-06] MEDS: ROCURONIUM BROMIDE 10 MG/ML 5 ML VIAL IV STA (12:55)
[2024-11-06 13:06] LABS: Adenovirus PCR Not Detected (NotDetected); Bordetella parapertussis PCR Not Detected (NotDetected); Bordetella pertussis PCR Not Detected (NotDetected); Chlamydia pneumoniae PCR Not Detected (NotDetected); Coronavirus 229E PCR Not Detected (NotDetected); Coronavirus CoV-2 (COVID19)PCR Not Detected (NotDetected); Coronavirus HKU1 PCR Not Detected (NotDetected); Coronavirus NL63 PCR Not Detected (NotDetected); Coronavirus OC43PCR Not Detected (NotDetected); Human Metapneumovirus PCR Not Detected (NotDetected); Influenza A PCR Not Detected (NotDetected); Influenza B PCR Not Detected (NotDetected); Mycoplasma pneumoniae PCR Not Detected (NotDetected); Parainfluenza Virus 1 PCR Not Detected (NotDetected); Parainfluenza Virus 2 PCR Not Detected (NotDetected); Parainfluenza Virus 3 PCR Not Detected (NotDetected); Parainfluenza Virus 4 PCR Not Detected (NotDetected); Respiratory Syncytial VirusPCR Not Detected (NotDetected); Rhinovirus/Enterovirus PCR Not Detected (NotDetected)
--- NOTE | 2024-11-06 13:14 | XRay Report ---
XR chest 1V portable CLINICAL HISTORY: post intubation COMPARISON STUDY: 11/06/2024 FINDINGS: Endotracheal tube tip is at the thoracic inlet. There is stable prominent cardiomegaly with pulmonary vascular congestion. Stable hazy opacity at the left base. No pneumothorax. IMPRESSION: Well-positioned endotracheal tube. ACT 112: Negative or not required by law. Electronically signed by: Jonathan Rogers M.D. 11/06/2024 1:13 PM
--- NOTE | 2024-11-06 13:36 | CT Scan Report ---
CT chest diagnostic wo con CT DOSE: 2059 CLINICAL HISTORY: acute on chronic hypoxemic failure. TECHNIQUE: Multiaxial CT images of the chest were performed without contrast. A dose lowering techni que was utilized adhering to the principles of ALARA. COMPARISON STUDY: 07/22/2024 FINDINGS: Endotracheal tube tip is between the thoracic inlet and the rafy. There is consolidation of the majority of the left lower lung lobe. There is scattered bandlike and patchy consolidation thr oughout the right lower lobe. There is no pleural effusion or pneumothorax. No enlarged adenopathy. T here is prominent cardiomegaly with prominence of the pulmonary vasculature suggesting CHF. There are coronary artery and aortic calcifications. There are aortic valvular and mitral valvular calcificati ons. No pericardial effusion. There are mild diffuse thoracic spine degenerative changes. IMPRESSION: 1. Well-positioned endotracheal tube. 2. CHF without pleural effusions. 3. Dense consolidation at the majority of the left lower lobe and bandlike and patchy consolidation s cattered at the right lower lobe. ACT 112: Negative or not required by law. Electronically signed by: Jonathan Rogers M.D. 11/06/2024 1:34 PM
--- NOTE | 2024-11-06 13:37 | CT Scan Report ---
CT SCAN OF THE CERVICAL SPINE CLINICAL HISTORY: Fall. COMPARISON STUDY: None. TECHNIQUE: CT scan of the cervical spine is performed from the skull base to the upper thoracic spine . Images are reviewed in the axial, sagittal, and coronal planes. IV contrast was not administered fo r this examination. A dose lowering technique was utilized adhering to the principles of ALARA. CT DOSE: 2060.09 mGy.cm FINDINGS: Endotracheal tube is incidentally noted. Alignment of the cervical spine is anatomic. No ac [place] cervical spine fractures are present. There is mild disc space narrowing and endplate osteophytos is within the cervical spine. Moderate multilevel facet arthrosis is present. Degenerative changes at the craniocervical junction are present. There are no acute cervical spine fracture. No prevertebral edema. IMPRESSION: No acute cervical spine fracture or subluxation. ACT 112: Negative or not required by law. Electronically signed by: Jose Lentz M.D. 11/06/2024 1:36 PM
--- NOTE | 2024-11-06 13:39 | CT Scan Report ---
CT head/brain wo con CLINICAL HISTORY: 84 years-old Female with lethargy. Acutely altered mental status TECHNIQUE: Multiple axial CT images of the head were obtained without contrast. A dose lowering tech nique was utilized adhering to the principles of ALARA. COMPARISON: CT cervical spine of same day, head CT 03/21/2022 FINDINGS: No acute intracranial hemorrhage, midline shift, intracranial mass, hydrocephalus, territorial ischem ia or abnormal extra-axial collection. Involutional changes with probable mild chronic microvascular ischemic disease. The calvarium is intact. Prior bilateral lens repair. The paranasal sinuses, mastoid air cells, and m iddle ear cavities are clear. IMPRESSION: No acute intracranial abnormality. ACT 112: Negative or not required by law. The above report was generated using voice recognition software. It may contain grammatical, syntax o r spelling errors. Electronically signed by: Kong Rojas M.D. 11/06/2024 1:38 PM
[2024-11-06] MEDS: RAPID SEQUENCE INDUCTION BAG ONE (13:54)
[2024-11-06 13:59] LABS: iSTAT Allen Test Pass; iSTAT Art Bld Gas pCO2 Correct 58 mmHg (35-46); iSTAT Arterial Blood Gas HCO3 29 meg/L (19-24); iSTAT Arterial Blood Gas pCO2 58 mmHg (35-46); iSTAT Arterial Blood Gas pO2 53 mmHg (80-95); iSTAT Arterial Blood Gas pO2 C 53; iSTAT Carbon Dioxide 30 mmol/L (24-31); iSTAT FiO2 40 %; iSTAT Hematocrit 28 % (37-47); iSTAT Hemoglobin 9.5 g/dl (12.0-16.0); iSTAT Potassium 4.4 mmol/L (3.3-5.0); iSTAT Sample Type Arterial; iSTAT Site L Radial; iSTAT Sodium 141 mmol/L (135-144); iSTAT SpO2 92
[2024-11-06] MEDS: VANCOMYCIN HCL 2,500 MG in SODIUM CHLORIDE 0.9% 500 ML IV ONE (14:03)
[2024-11-06] MEDS: PIPERACILLIN/TAZOBACTAM 4.5 GM/100 ML BAG IV STA (14:04)
[2024-11-06] MEDS: SODIUM CHLORIDE 0.9% 1,000 ML IV SCH (14:09)
[2024-11-06] MEDS: MIDAZOLAM HCL 1 MG/ML 2ML VIAL IV PRN (14:12)
--- NOTE | 2024-11-06 14:21 | Critical Care Consultation ---
Date of Consultation November 06, 2024 Assessment & Plan (1) Acute on chronic hypoxic respiratory failure: (2) ERIK (obstructive sleep apnea): (3) (HFpEF) heart failure with preserved ejection fraction: (4) Pulmonary edema: (5) Morbid obesity: (6) Nocturnal hypoxia: (7) SOB (shortness of breath): (8) Hypertension, accelerated: (9) Hyperlipidemia: (10) Recurrent falls: (11) Obesity hypoventilation syndrome: Plan Reason Critically Ill: 84-year-old female with a significant history of restrictive lung disease, chronic respiratory failure with hypoxia on 3 L at baseline, ERIK, CHF, CKD 3, and aortic stenosis who was intubated in the emergency department in the setting of respiratory failure. NEURO - * CAM ICU: Unable to assess * Sedation: Push dose PRN Versed * Pain: PRN Fentanyl * Encephalopathy: * Multifactorial in the morbidly obese patient with obesity hypoventilation syndrome with increasing sedation secondary to Ativan dosing. * CT head without acute findings. * Continue to trend ABGs to maintain that we are ventilating well and removing excess CO2. * Neurochecks per unit protocol. * Continue with lowest dose necessary of both sedation and pain medications. * Would evaluate for other contributors including infection. Will obtain UA. CARDIAC/VASCULAR - * Borderline hypotension: * Transient hypotension in the emergency department which is since responded. * Favor vasopressor support versus significant fluids given CT findings with concern for degree of volume overload. * Hold home antihypertensive medications. * Patient on 5 mg prednisone daily. * Will check random cortisol and start stress dose steroids if needed. * Aortic stenosis: * Agree with follow-up echocardiogram. * Would benefit from avoidance of tachycardia or tachydysrhythmia. * Monitor on telemetry. RESPIRATORY - * Acute on chronic respiratory failure with hypoxia and hypercapnia: * Patient with history of ERIK and likely obesity hypoventilation syndrome with underlying hypoxemia in the setting of restrictive lung disease from obesity and hiatal hernia. * Continue to wean ventilator settings as tolerated. * She is not bronchospastic on exam today. * Will add as needed nebs to be used as needed. * She has Trelegy which she uses at home. Will start her on similar nebulized components * ERIK/OHS: * Will hopefully be able to wean to the point of extubation. * Will most certainly require positive pressure ventilatory support when extubated. * We do not have access to her sleep study for recommended settings. GI/NUTRITION - * NPO with hopes of early extubation * Prophylaxis: Famotidine RENAL/LYTES - * YUNI on CKD 3: * Agree with holding nephrotoxic agents. * IVF: NS @ 50mL/hr - * Obtain urine sample for culture and sensitivity. * Vazquez in place - Strict I&Os. ENDO - * No h/o DM * BSGs per unit protocol. ISS --> gtt per unit policy. * Hypothyroidism: * Restart home dose levothyroxine when able. Okay to hold for 24 hours until we see if the patient can be extubated to take her p.o. medications. Consider transition to IV equivalent if intubated greater than 24 hours. HEME - * Anemia: * Being worked up by primary service. ID - * Possible LEFT lower lobe infiltrative process: * Currently on Zosyn and vancomycin. * Will discontinue vancomycin secondary to negative nasal MRSA screening. * Hold antibiotics in favor of respiratory cultures. * Chest CT pattern without convincing infiltrate. LINES/IV ACCESS - * PIVs x2 * ETT * Vazquez DVT PROPHYLAXIS - * Heparin SQ * SCDs I have personally spent 45 minutes of critical care time in the direct management of this patient. This is a life/limb threatening event. This includes time spent evaluating patient, direct bedside care, chart review, placing orders, interpretation of diagnostic studies, discussion with consultants, patient, and family members, as well as other required patient management activities. This time is exclusive of all separately billable procedures, and teaching time and separate from and in addition to any other critical care service time. Thank you for allowing us to participate in the care of this patient. Please refer to my attending physician's documentation for any further recommendations. Supervising Physician Co-Signing Physician Notes Patient seen and examined. EMR reviewed. Discussed with daughters and granddaughter at bedside as well as with critical care SONIA. Agree with assessment plan as noted. Unfortunately the patient is declining clinically in the outpatient setting. According to her family, she is essentially functionally blind at this point in time and has had several admissions for hypercarbic respiratory failure. This is the first time she is required mechanical ventilation. We briefly touched on options going forward including reintubation, and tracheostomy. Family does not believe that would be in the patient's long-term plans but she does not have advanced directives available. We touched on reintubation and discussed what palliative care would look like in the event the patient should fail a trial of extubation. They expressed understanding are in agreement. Given the severity of her comorbid conditions including her valvular heart disease, chronic kidney disease and diastolic heart failure, unclear how she will respond over time. The fact that she has had increasing falls would portend an unfavorable functional return to cover a prognosis. Patient is critically ill with multiorgan system dysfunction/failure with significant possibility of clinical decline and/or . A total of 45 minutes in critical care time was spent in evaluation management stabilization of this patient History of Present Illness Reason for Consultation: resp failure Requesting Physician: Cherelle Rosario PA-C Attending Physician: Alden Morrow MD History of Present Illness Patient intubated in the emergency department secondary to respiratory failure and unable to participate in history of present illness. Historical information from reviewed prior visits as well as documented H&P. Patient is a an 84-year-old female with a significant past medical history of chronic respiratory failure with hypoxia on 3 L nasal cannula at baseline, r estrictive lung disease, asthma, ERIK noncompliant with CPAP, CHF, aortic stenosis, CKD 3, history of DVT not on anticoagulation. The patient had an unwitnessed fall early this morning at 4 AM from standing. She apparently has been having increasing falls over the last few days and has been equated to increasing weakness. The family is concerned about her safety at home. She did contact EMS a few times this weekend, but was finally agreeable to come to the hospital for evaluation. And route to the emergency department, she received 1 mg of Ativan and became increasingly somnolent throughout her emergency stay. She was appropriately placed on BiPAP initially as she was noted to have significant respiratory acidosis on VBG. Repeat ABG did show some improvement, however the patient was becoming apneic on BiPAP and not engaging with great tidal volumes. She was intubated in the emergency department for airway protection. Allergies Allergy/AdvReac Type Severity Reaction Status Date / Time azathioprine Allergy Intermediate HIVES Verified 03/27/23 13:47 gabapentin Allergy Intermediate hives Verified 03/27/23 13:47 hydroxychloroquine Allergy Intermediate HIVES Verified 03/27/23 13:47 ibuprofen Allergy Intermediate HIVES Verified 03/27/23 13:47 methotrexate Allergy Intermediate hives Verified 03/27/23 13:47 minocycline Allergy Intermediate Hives Verified 03/27/23 13:47 NSAIDS (Non-Steroidal Allergy Intermediate Hives Verified 03/27/23 13:47 Anti-Inflamma phenol Allergy Intermediate hives Verified 03/27/23 13:47 risedronate sodium Allergy Intermediate HIVES Verified 03/27/23 13:47 doxepin Allergy Mild HIVES Verified 03/27/23 13:47 leflunomide Allergy Mild HIVES Verified 03/27/23 13:47 sulfasalazine Allergy Mild HIVES Verified 03/27/23 13:47 Tetracyclines Allergy Mild HIVES Verified 03/27/23 13:47 hydromorphone AdvReac Intermediate hallucinate Verified 03/27/23 13:47 couldn't walk or talk teriparatide AdvReac Intermediate MALAISE, Verified 03/27/23 13:47 LOWER LEG EDEMA AMINOQUINOLINE Allergy Intermediate HIVES--PER Uncoded 03/27/23 13:47 GMG Home Medications Medication Instructions Recorded Confirmed Type albuterol sulfate 90 mcg/actuation 2 puff inhalation Q4 PRN Shortness 11/15/18 11/06/24 History aerosol inhaler (Ventolin HFA) Of Breath Or Wheezing duloxetine 30 mg capsule,delayed 30 mg PO QAM 11/15/18 11/06/24 History release melatonin 5 mg tablet 5 mg PO HS 11/15/18 11/06/24 History metoprolol tartrate 25 mg tablet 12.5 mg PO BID 11/15/18 11/06/24 History montelukast 10 mg tablet 10 mg PO HS 11/15/18 11/06/24 History (Singulair) allopurinol 100 mg tablet 200 mg PO QAM 03/21/22 11/06/24 History docusate sodium 100 mg capsule 100 mg PO BID 03/21/22 11/06/24 History iron,carbonyl 65 mg-vitamin C 125 1 tab PO 3XWK 03/21/22 11/06/24 History mg tablet,delayed release (Vitron-C) levothyroxine 150 mcg tablet 150 mcg PO DAILYBB 03/21/22 11/06/24 History omeprazole 40 mg capsule,delayed 40 mg PO QAM 03/21/22 11/06/24 History release prednisone 5 mg tablet 5 mg PO QAM 03/21/22 11/06/24 History Oxygen Home #1 ea 03/28/22 07/22/24 Rx ascorbic acid (vitamin C) 500 mg 500 mg PO QAM 03/27/23 11/06/24 History tablet (Vitamin C) atorvastatin 10 mg tablet 10 mg PO 3XWK 03/27/23 11/06/24 History sennosides 8.6 mg tablet (senna) 8.6 mg PO AMHS 03/27/23 11/06/24 History Lactobacillus acidophilus 250 2,000 mmu cells PO DAILY 07/22/24 11/06/24 History million cell capsule (Probiotic Acidophilus) fluticasone fur. 200 mcg-umeclid 1 ea inhalation QAM 07/22/24 11/06/24 History 62.5 mcg-vilant 25 mcg inhalat.powder (Trelegy Ellipta) furosemide 20 mg tablet (Lasix) 20 mg PO QAM 07/22/24 11/06/24 History eghlnrup-gma-xmoqng 5 mg-zeaxanth 3 cap PO QAM 07/22/24 11/06/24 History 1 mg-bilberry 7.5 mg-herbal capsule (Macular Health Formula) amlodipine 10 mg tablet 10 mg PO DAILY #30 tabs 07/23/24 11/06/24 Rx lisinopril 40 mg tablet 40 mg PO DAILY #30 tabs 07/23/24 11/06/24 Rx pregabalin 100 mg capsule 100 mg PO BID 11/06/24 11/06/24 History Patient History Medical History Asthma Gout Spinal stenosis GERD (gastroesophageal reflux disease) Deep vein thrombosis 2011 after knee replacement--no longer on blood thinners Bilateral cataracts Anxiety Chronic obstructive pulmonary disease On home oxygen therapy 2L hs n/c Surgical History History of total abdominal hysterectomy and bilateral salpingo-oophorectomy History of bilateral tubal ligation Status post correction of deviated nasal septum History of carpal tunnel release of both wrists History of arthroscopy of left knee History of total left knee replacement (TKR) History of bowel resection History of cholecystectomy History of colonoscopy History of esophagogastroduodenoscopy (EGD) History of tooth extraction all teeth removed History of tonsillectomy Family History Other Hypertension No family history of adverse response to anesthesia Social History Smoking Status: Unknown if ever smoked Second Hand Exposure: No; Do You Dip or Chew Tobacco: No; Hx Alcohol Use: No Hx Substance Use: No Preferred Language: Kyrgyz Communication Ability: Effective Head Of Data Required: No Beliefs That Will Affect Care: None marital status: / Current Living Situation: Alone How many Children do You have: 5 Feels Safe at Home: Yes Assistive Devices: Oxygen - Continuous and Walker Review of Systems Review of Systems: Unable to obtain secondary to being intubated and sedated. Physical Exam Physical Exam: VITAL SIGNS - Vital signs and nursing notes were reviewed. GENERAL - 84-year-old female appearing her stated age who is in no acute distress. Intubated and sedated. SKIN -developing ecchymosis noted to the LEFT knee area and LEFT great toe. HEAD - NC/AT. EYES - Sclera anicteric. EARS - No deformities of external structures noted on gross examination bilaterally. NOSE - Midline and without cyanosis. MOUTH/OROPHARYNX - ETT in place. NECK - Supple to palpation. LUNGS -breath sounds diminished at the bases bilaterally. CARDIAC - RRR with S1/S2. Loud systolic murmur appreciated to the LEFT-sided sternal border with radiation to the chest and neck area. ABDOMEN - Abdominal contour obese without pulsations or visible masses. BS normoactive all four quadrants. No tenderness, palpable masses, hepatosplenomegaly, or ascites noted. EXTREMITIES - Ecchymosis appreciated to the LEFT-sided anterior knee and base of the LEFT great toe. Unable to assess otherwise given sedation and recent paralytic. NEUROLOGIC -unable to initially assess as the patient had received paralytic just prior to arriving to the ICU. Results & Data Results & Data Vital Signs (Past 12 Hours) Vital Signs Temp Pulse Pulse Resp BP BP Pulse Ox 11/06/24 12:57 83 20 100 11/06/24 12:56 92/57 L 11/06/24 12:51 64 100 11/06/24 12:47 108/52 L 11/06/24 12:39 70 19 11/06/24 12:00 69 18 11/06/24 12:00 105/59 L 11/06/24 11:54 70 15 89 L 11/06/24 11:30 83/66 L 11/06/24 11:30 83/66 L 11/06/24 11:30 71 14 89 L 11/06/24 11:00 73 15 92 11/06/24 10:29 74 20 88/55 L 90 11/06/24 10:08 75 13 95 11/06/24 10:04 76 20 94 11/06/24 08:59 75 20 91/69 L 95 11/06/24 08:42 98 11/06/24 08:41 92 11/06/24 08:37 74 20 110/53 L 94 11/06/24 08:30 36.7 C 74 20 110/53 L 90 11/06/24 08:30 75 11/06/24 08:25 80 L O2 Del Method O2 Flow Rate FiO2 11/06/24 12:57 40 11/06/24 12:56 11/06/24 12:51 11/06/24 12:47 11/06/24 12:39 11/06/24 12:00 11/06/24 12:00 11/06/24 11:54 11/06/24 11:30 11/06/24 11:30 11/06/24 11:30 11/06/24 11:00 11/06/24 10:29 BiPAP 11/06/24 10:08 40 11/06/24 10:04 Nasal Cannula 4 11/06/24 08:59 Non-rebreather 10 11/06/24 08:42 Non-rebreather 15 11/06/24 08:41 Non-rebreather 15 11/06/24 08:37 Nasal Cannula 2 11/06/24 08:30 Nasal Cannula 2 11/06/24 08:30 11/06/24 08:25 Nasal Cannula 2 Coding Level of Care Code 77338 CRITICAL CARE 1ST 30-74M Diagnoses Acute on chronic hypoxic respiratory failure J96.21 ERIK (obstructive sleep apnea) G47.33 Heart failure with preserved ejection fraction, unspecified HF chronicity I50.30 Heart failure chronicity: unspecified Pulmonary edema J81.1 Morbid obesity E66.01 Nocturnal hypoxia G47.34 SOB (shortness of breath) R06.02 Hypertension, accelerated I10 Mixed hyperlipidemia E78.2 Hyperlipidemia type: mixed hyperlipidemia Recurrent falls R29.6 Obesity hypoventilation syndrome E66.2 (3) (HFpEF) heart failure with preserved ejection fraction Heart failure chronicity: unspecified Qualified Code(s): I50.30 - Unspecified diastolic (congestive) heart failure (9) Hyperlipidemia Hyperlipidemia type: mixed hyperlipidemia Qualified Code(s): E78.2 - Mixed hyperlipidemia
[2024-11-06] MEDS ORDERED: ALBUT/IPRATROP 3MG/0.5MG NEB 3 ML VIAL NEB PRN (14:50)
[2024-11-06] MEDS ORDERED: STAT IV Infusion **Titration per Protocol STA ×2 (14:57→15:25)
[2024-11-06] MEDS: fentaNYL citrate PF 100 MCG/2 ML VIAL IV PRN (14:58)
[2024-11-06] MEDS: PANTOprazole 40 MG/10 ML SYR IV ONE (15:00)
[2024-11-06] MEDS: HYDROCORTISONE SOD 50 MG in SYRINGE 0 ML IV SCH (15:33)
[2024-11-06] MEDS: propofoL 1,000 MG/100 ML VIAL IV SCH (15:38)
[2024-11-06] MEDS: PLASMA-LYTE A 1,000 ML IV ONE (15:38)
[2024-11-06] MEDS: PHENYLEPHRINE/NSS 25 MG/250 ML BAG IV SCH (15:42)
[2024-11-06] MEDS: FLUDROCORTISONE ACETATE 0.1 MG TAB PO SCH (15:54)
--- NOTE | 2024-11-06 17:38 | XRay Report ---
EXAM: XR KUB/Abdomen 1 view CLINICAL HISTORY: Verify placement of OGT. TECHNIQUE: X-ray images of the abdomen were obtained in AP view. COMPARISON: CT dated 03/27/[address] dated 07/22/2024 were reviewed FINDINGS: Gas Pattern: Nasogastric tube is seen below the level of the diaphragm at the level of the gastric fundus. Multiple LEDs are seen implicating the chest and abdomen. The lower chest shows mild left pleural effusion and blunting of the right costophrenic angle. Gas pattern within the abdomen is normal. No evidence of bowel obstruction or distention. Soft Tissues: Soft tissues of the abdomen appear normal without evidence of masses or calcifications. Liver, spleen, and kidneys are of normal size and position. IMPRESSION: 1. The nasogastric tube is seen in place. 2. The lower chest shows mild left pleural effusion and blunting of the right costophrenic angle, Stable since prior CT dated 07/22/2024. Electronically signed by Tong Barajas 11-06-2024 5:38 PM
[2024-11-06] MEDS: MIDODRINE HCL 2.5 MG TAB PO SCH (18:25)
[2024-11-06] MEDS: SODIUM BICARB 8.4% INJ 50 MEQ/50 ML SYR IV ONE (18:25)
[2024-11-06] MEDS: ICU Protocol for HYPERglycemia SCH (19:08)
--- NOTE | 2024-11-06 19:58 | Orthopedic Consultation ---
Date of Consultation November 06, 2024 Assessment & Plan (1) Closed fracture of one or more phalanges of foot: IMPRESSION: Left great toe proximal phalanx, intra-articular fracture, closed, comminuted, mildly displaced PLAN: RICE ISAK & SCDs BLE WBAT through heel in post-op shoe when able. Decubitus precations and waffle boots while in bed. Pain control per primary service. Continue care per primary service History of Present Illness Reason for Consultation: Left great toe fracture Requesting Physician: Elza Mcmanus MD Attending Physician: Alden Morrow MD History of Present Illness Obtained from notes and nursing due to patient being intubated. 84 yo female with multiple medical problems, has had frequent falls recently, injured her toe and fell. Brought to ED via EMS and was given Lorazepam and became lethargic and was intubated in the ED and admitted to the ICU. I was consuled for evaluation and treatment of left great toe fracture that was found on x-ray. Allergies Allergy/AdvReac Type Severity Reaction Status Date / Time azathioprine Allergy Intermediate HIVES Verified 03/27/23 13:47 gabapentin Allergy Intermediate hives Verified 03/27/23 13:47 hydroxychloroquine Allergy Intermediate HIVES Verified 03/27/23 13:47 ibuprofen Allergy Intermediate HIVES Verified 03/27/23 13:47 methotrexate Allergy Intermediate hives Verified 03/27/23 13:47 minocycline Allergy Intermediate Hives Verified 03/27/23 13:47 NSAIDS (Non-Steroidal Allergy Intermediate Hives Verified 03/27/23 13:47 Anti-Inflamma phenol Allergy Intermediate hives Verified 03/27/23 13:47 risedronate sodium Allergy Intermediate HIVES Verified 03/27/23 13:47 doxepin Allergy Mild HIVES Verified 03/27/23 13:47 leflunomide Allergy Mild HIVES Verified 03/27/23 13:47 sulfasalazine Allergy Mild HIVES Verified 03/27/23 13:47 Tetracyclines Allergy Mild HIVES Verified 03/27/23 13:47 hydromorphone AdvReac Intermediate hallucinate Verified 03/27/23 13:47 couldn't walk or talk teriparatide AdvReac Intermediate MALAISE, Verified 03/27/23 13:47 LOWER LEG EDEMA AMINOQUINOLINE Allergy Intermediate HIVES--PER Uncoded 09/09/23 13:47 GMG Home Medications Medication Instructions Recorded Confirmed Type albuterol sulfate 90 mcg/actuation 2 puff inhalation Q4 PRN Shortness 11/15/18 11/06/24 History aerosol inhaler (Ventolin HFA) Of Breath Or Wheezing duloxetine 30 mg capsule,delayed 30 mg PO QAM 11/15/18 11/06/24 History release melatonin 5 mg tablet 5 mg PO HS 11/15/18 11/06/24 History metoprolol tartrate 25 mg tablet 12.5 mg PO BID 11/15/18 11/06/24 History montelukast 10 mg tablet 10 mg PO HS 11/15/18 11/06/24 History (Singulair) allopurinol 100 mg tablet 200 mg PO QAM 03/21/22 11/06/24 History docusate sodium 100 mg capsule 100 mg PO BID 03/21/22 11/06/24 History iron,carbonyl 65 mg-vitamin C 125 1 tab PO 3XWK 03/21/22 11/06/24 History mg tablet,delayed release (Vitron-C) levothyroxine 150 mcg tablet 150 mcg PO DAILYBB 03/21/22 11/06/24 History omeprazole 40 mg capsule,delayed 40 mg PO QAM 03/21/22 11/06/24 History release prednisone 5 mg tablet 5 mg PO QAM 03/21/22 11/06/24 History Oxygen Home #1 ea 03/28/22 07/22/24 Rx ascorbic acid (vitamin C) 500 mg 500 mg PO QAM 03/27/23 11/06/24 History tablet (Vitamin C) atorvastatin 10 mg tablet 10 mg PO 3XWK 03/27/23 11/06/24 History sennosides 8.6 mg tablet (senna) 8.6 mg PO AMHS 03/27/23 11/06/24 History Lactobacillus acidophilus 250 2,000 mmu cells PO DAILY 07/22/24 11/06/24 History million cell capsule (Probiotic Acidophilus) fluticasone fur. 200 mcg-umeclid 1 ea inhalation QA 07/22/24 11/06/24 History 62.5 mcg-vilant 25 mcg inhalat.powder (Trelegy Ellipta) furosemide 20 mg tablet (Lasix) 20 mg PO QAM 07/22/24 11/06/24 History [id number] 5 mg-zeaxanth 3 cap PO QAM 07/22/24 11/06/24 History 1 mg-bilberry 7.5 mg-herbal capsule ([employer] Formula) amlodipine 10 mg tablet 10 mg PO DAILY #30 tabs 07/23/24 11/06/24 Rx lisinopril 40 mg tablet 40 mg PO DAILY #30 tabs 07/23/24 11/06/24 Rx pregabalin 100 mg capsule 100 mg PO BID 11/06/24 11/06/24 History Patient History Medical History Asthma Gout Spinal stenosis GERD (gastroesophageal reflux disease) Deep vein thrombosis 2011 after knee replacement--no longer on blood thinners Bilateral cataracts Anxiety Chronic obstructive pulmonary disease On home oxygen therapy 2L hs n/c Surgical History History of total abdominal hysterectomy and bilateral salpingo-oophorectomy History of bilateral tubal ligation Status post correction of deviated nasal septum History of carpal tunnel release of both wrists History of arthroscopy of left knee History of total left knee replacement (TKR) History of bowel resection History of cholecystectomy History of colonoscopy History of esophagogastroduodenoscopy (EGD) History of tooth extraction all teeth removed History of tonsillectomy Family History Other Hypertension No family history of adverse response to anesthesia Social History Smoking Status: Former smoker Second Hand Exposure: No; Do You Dip or Chew Tobacco: No; Hx Alcohol Use: No Hx Substance Use: No Preferred Language: [place] Communication Ability: INTUBATED Tumbler Plater Required: No Beliefs That Will Affect Care: None marital status: / Current Living Situation: Alone How many Children do You have: 5 Feels Safe at Home: Yes Assistive Devices: Denture - Upper, Denture - Lower, Glasses, Oxygen - Continuous and Walker Review of Systems Review of Systems: Unobtainable due to endotracheal tube Physical Exam Physical Exam: Pt is intubated. LLE: BCR < 2sec. Unable to assess sensation or motor. Previous anterior knee incision is well healed. + Swelling & bruising about the great toe and anterior knee Results & Data Vital Signs (Past 12 Hours) Vital Signs Temp Pulse Pulse Pulse Resp BP BP 11/06/24 19:03 68 20 11/06/24 19:00 115/58 L 11/06/24 19:00 115/58 L 11/06/24 18:51 68 20 11/06/24 18:30 68 20 11/06/24 18:06 69 20 11/06/24 18:00 108/58 L 11/06/24 18:00 108/58 L 11/06/24 17:48 70 20 11/06/24 17:30 70 20 11/06/24 17:06 67 20 11/06/24 17:00 118/53 L 11/06/24 16:51 67 21 11/06/24 16:30 64 20 11/06/24 16:25 36.5 C 11/06/24 16:18 67 20 11/06/24 16:00 89/51 L 11/06/24 16:00 11/06/24 15:54 64 20 11/06/24 15:39 64 20 11/06/24 15:25 105/41 L 11/06/24 15:21 67 20 11/06/24 15:14 89 20 11/06/24 15:07 75/42 L 11/06/24 15:06 63 20 11/06/24 15:04 74/44 L 11/06/24 15:00 76/46 L 11/06/24 14:57 71 20 11/06/24 14:50 86/68 L 11/06/24 14:50 86/68 L 11/06/24 14:50 86/68 L 11/06/24 14:42 68 20 11/06/24 14:36 70 21 11/06/24 14:27 83/52 L 11/06/24 14:27 83/52 L 11/06/24 14:21 68 17 11/06/24 14:00 11/06/24 14:00 74 20 11/06/24 13:57 76 20 11/06/24 13:50 79 20 145/83 H 11/06/24 13:38 145/58 H 11/06/24 13:09 78 20 11/06/24 13:05 103/57 L 11/06/24 13:05 103/57 L 11/06/24 12:57 90 11/06/24 12:57 83 20 11/06/24 12:56 92/57 L 11/06/24 12:51 64 11/06/24 12:47 108/52 L 11/06/24 12:39 70 19 11/06/24 12:00 69 18 11/06/24 12:00 105/59 L 11/06/24 11:54 70 15 11/06/24 11:30 83/66 L 11/06/24 11:30 83/66 L 11/06/24 11:30 71 14 11/06/24 11:00 73 15 11/06/24 10:29 74 20 88/55 L 11/06/24 10:08 75 13 11/06/24 10:04 76 20 11/06/24 08:59 75 20 91/69 L 11/06/24 08:42 11/06/24 08:41 11/06/24 08:37 74 20 110/53 L 11/06/24 08:30 36.7 C 74 20 110/53 L 11/06/24 08:30 75 11/06/24 08:25 Pulse Ox O2 Del Method O2 Flow Rate FiO2 11/06/24 19:03 91 11/06/24 19:00 11/06/24 19:00 11/06/24 18:51 91 11/06/24 18:30 90 11/06/24 18:06 90 11/06/24 18:00 11/06/24 18:00 11/06/24 17:48 87 L 11/06/24 17:30 88 L 11/06/24 17:06 90 11/06/24 17:00 11/06/24 16:51 87 L 11/06/24 16:30 93 11/06/24 16:25 11/06/24 16:18 93 11/06/24 16:00 11/06/24 16:00 40 11/06/24 15:54 94 11/06/24 15:39 95 11/06/24 15:25 11/06/24 15:21 93 11/06/24 15:14 90 40 11/06/24 15:07 11/06/24 15:06 94 11/06/24 15:04 11/06/24 15:00 11/06/24 14:57 91 11/06/24 14:50 11/06/24 14:50 11/06/24 14:50 11/06/24 14:42 90 11/06/24 14:36 90 11/06/24 14:27 11/06/24 14:27 11/06/24 14:21 92 11/06/24 14:00 Mechanical Vent 40 11/06/24 14:00 92 11/06/24 13:57 92 11/06/24 13:50 93 Mechanical Vent 40 11/06/24 13:38 11/06/24 13:09 96 11/06/24 13:05 11/06/24 13:05 11/06/24 12:57 100 Mechanical Vent 40 11/06/24 12:57 100 40 11/06/24 12:56 11/06/24 12:51 100 11/06/24 12:47 11/06/24 12:39 11/06/24 12:00 11/06/24 12:00 11/06/24 11:54 89 L 11/06/24 11:30 11/06/24 11:30 11/06/24 11:30 89 L 11/06/24 11:00 92 11/06/24 10:29 90 BiPAP 11/06/24 10:08 95 40 11/06/24 10:04 94 Nasal Cannula 4 11/06/24 08:59 95 Non-rebreather 10 11/06/24 08:42 98 Non-rebreather 15 11/06/24 08:41 92 Non-rebreather 15 11/06/24 08:37 94 Nasal Cannula 2 11/06/24 08:30 90 Nasal Cannula 2 11/06/24 08:30 11/06/24 08:25 80 L Nasal Cannula 2 Laboratory Results Laboratory Results WBC 9.18 K/ul (4.8-10.8) 11/06/24 08:25 RBC 3.11 M/uL (4.20-5.40) L 11/06/24 08:25 Hgb 9.5 g/dl (12.0-16.0) L 11/06/24 08:25 POC Hgb 9.5 g/dl (12.0-16.0) L 11/06/24 13:45 Hct 30.3 % (37.0-47.0) L 11/06/24 08:25 POC Hct 28 % (37-47) L 11/06/24 13:45 MCV 97.4 fL (80.0-100.0) 11/06/24 08:25 MCH 30.5 pg (25.0-34.0) 11/06/24 08:25 MCHC 31.4 g/dL (32.0-36.0) L 11/06/24 08:25 RDW Std Deviation 53.1 fL (36.4-46.3) H 11/06/24 08:25 RDW Coeff of Nury 14.9 % (11.5-14.5) H 11/06/24 08:25 Plt Count 152 K/uL (130-400) 11/06/24 08: MPV 12.0 fL (9.4-12.4) 11/06/24 08:25 Immature Gran % (Auto) 0.9 % 11/06/24 08:25 Neut % (Auto) 63.4 % 11/06/24 08:25 Lymph % (Auto) 17.3 % 11/06/24 08:25 Owen % (Auto) 12.2 % 11/06/24 08:25 Eos % (Auto) 5.8 % 11/06/24 08:25 Baso % (Auto) 0.4 % 11/06/24 08:25 Neut # (Auto) 5.82 K/uL (1.40-6.50) 11/06/24 08:25 Lymph # (Auto) 1.59 K/uL (1.20-3.40) 11/06/24 08:25 Owen # (Auto) 1.12 K/uL (0.11-0.59) H 11/06/24 08:25 Eos # (Auto) 0.53 K/uL (0.00-0.50) H 11/06/24 08:25 Baso # (Auto) 0.04 K/uL (0.00-0.20) 11/06/24 08:25 Immature Gran # (Auto) 0.08 K/uL (0.01-0.20) 11/06/24 08:25 PT 10.4 Seconds (9.0-12.0) 11/06/24 08:25 INR 1.0 (0.9-1.1) 11/06/24 08:25 Specimen Type Arterial 11/06/24 13:45 Sample Site L Radial 11/06/24 13:45 POC pH 7.30 (7.35-7.45) L 11/06/24 13:45 POC pCO2 58 mmHg (35-46) H 11/06/24 13:45 POC pO2 53 mmHg (80-95) L 11/06/24 13:45 POC HCO3 29 nicole/L (19-24) H 11/06/24 13:45 POC Total CO2 30 mmol/L (24-31) 11/06/24 13:45 POC Base Excess 2.0 nicole/L (-9-1.8) H 11/06/24 13:45 O2 Sat Pulse Oximetry 92 11/06/24 13:45 ABG pH (Temp Correct) 7.300 (7.35-7.45) L 11/06/24 13:45 ABG pCO2 (Temp Corrct 58 mmHg (35-46) H 11/06/24 13:45 POC ABG pO2 at Pt Temp 53 11/06/24 13:45 POC ABG O2 Sat 82.0 % (90-95) L 11/06/24 13:45 Peyman Test Pass 11/06/24 13:45 VBG pH 7.21 (7.36-7.41) L 11/06/24 11:49 VBG pCO2 74 mmHg (38-50) H 11/06/24 11:49 VBG pO2 29 mmHg 11/06/24 11:49 VBG HCO3 30 mmol/L 11/06/24 11:49 VBG O2 Saturation < 60.0 % 11/06/24 11:49 VBG Base Excess -0.3 mEq/L 11/06/24 11:49 O2 Delivery Device Ventilator 11/06/24 13:45 Vent Mode AC 11/06/24 13:45 POC FiO2 40 % 11/06/24 13:45 End Tidal CO2 42 11/06/24 13:45 POC Sodium 141 mmol/L (135-144) 11/06/24 13:45 Sodium 142 mmol/L (136-145) 11/06/24 08:25 POC Potassium 4.4 mmol/L (3.3-5.0) 11/06/24 13:45 Potassium 4.2 mmol/L (3.5-5.1) 11/06/24 08:25 Chloride 106 mmol/L (98-107) 11/06/24 08:25 Carbon Dioxide 33 mmol/L (21-32) H 11/06/24 08:25 Anion Gap 3 (3-11) 11/06/24 08:25 BUN 40 mg/dl (6-23) H 11/06/24 08:25 Creatinine 2.16 mg/dl (0.6-1.2) H 11/06/24 08:25 Est Cr Clr Drug Dosing 27.2 ml/min 11/06/24 08:25 eGFR 22.32 11/06/24 08:25 BUN/Creatinine Ratio 18.5 (10-20) 11/06/24 08:25 Glucose 111 mg/dl (70-99(Fasting)) H 11/06/24 08:25 POC Glucose 99 mg/dl (70-99) 11/06/24 18:34 Calcium 8.1 mg/dl (8.6-10.3) L 11/06/24 08:25 Magnesium 1.9 mg/dl (1.7-2.4) 11/06/24 08:25 Total Bilirubin 0.5 mg/dl (0.2-1.0) 11/06/24 08:25 AST 12 U/L (13-39) L 11/06/24 08:25 ALT 9 U/L (7-52) 11/06/24 08:25 Alkaline Phosphatase 56 U/L (34-104) 11/06/24 08:25 Troponin I High Sens 35.6 pg/ml (0-14) H 11/06/24 11:49 B-Natriuretic Peptide 200 pg/ml (0-100) H 11/06/24 11:49 Total Protein 5.3 gm/dl (6.0-8.3) L 11/06/24 08:25 Albumin 3.3 gm/dl (3.4-5.0) L 11/06/24 08:25 Globulin 2.0 gm/dl (2.5-4.0) L 11/06/24 08:25 Albumin/Globulin Ratio 1.7 (0.9-2) 11/06/24 08:25 Procalcitonin 0.06 ng/ml (0-0.5) 11/06/24 11:49 TSH 1.239 uIu/ml (0.300-4.500) 11/06/24 08:25 Random Cortisol 16.75 mcg/dl 11/06/24 11:49 Nasal Screen MRSA (PCR) Negative (Negative) 11/06/24 Unknown Adenovirus (PCR) Not Detected (NotDetected) 11/06/24 11:51 B. pertussis DNA (PCR) Not Detected (NotDetected) 11/06/24 11:51 B.parapertussis DNA PCR Not Detected (NotDetected) 11/06/24 11:51 C. pneumoniae DNA (PCR) Not Detected (NotDetected) 11/06/24 11:51 Coronavirus OC43 (PCR) Not Detected (NotDetected) 11/06/24 11:51 Coronavirus HKU1 (PCR) Not Detected (NotDetected) 11/06/24 11:51 Coronavirus 229E (PCR) Not Detected (NotDetected) 11/06/24 11:51 SARS-CoV-2 (PCR) Not Detected (NotDetected) 11/06/24 11:51 Coronavirus NL63 (PCR) Not Detected (NotDetected) 11/06/24 11:51 Human Metapneumovir PCR Not Detected (NotDetected) 11/06/24 11:51 Influenza Type A (PCR) Not Detected (NotDetected) 11/06/24 11:51 Influenza Type B (PCR) Not Detected (NotDetected) 11/06/24 11:51 M. pneumoniae (PCR) Not Detected (NotDetected) 11/06/24 11:51 Parainfluenza 1 (PCR) Not Detected (NotDetected) 11/06/24 11:51 Parainfluenza 2 (PCR) Not Detected (NotDetected) 11/06/24 11:51 Parainfluenza 3 (PCR) Not Detected (NotDetected) 11/06/24 11:51 Parainfluenza 4 (PCR) Not Detected (NotDetected) 11/06/24 11:51 RSV (PCR) Not Detected (NotDetected) 11/06/24 11:51 Entero/Rhino (PCR) Not Detected (NotDetected) 11/06/24 11:51 Impressions Femur X-Ray 11/06/24 08:40 XR femur LT 2V routine, XR knee LT 1 or 2V routine CLINICAL HISTORY: knee pain COMPARISON: None FINDINGS: Evaluation of the left hip is limited by habitus and technical factors. No fracture or dislocation seen at the left femur or the left knee. Left knee prosthesis shows no hardware complication. IMPRESSION: No fracture seen. ACT 112: Negative or not required by law. Electronically signed by: Jonathan Rogers M.D. 11/06/2024 9:31 AM Foot X-Ray 11/06/24 08:40 XR foot RT min 3V routine CLINICAL HISTORY: bruisin to great toe COMPARISON: None FINDINGS: There is an acute intra-articular mildly comminuted mildly displaced fracture proximally at the first proximal phalanx. There is mild cortical step- off and gap at the proximal articular surface of the first proximal phalanx. No other fracture or dislocation seen of the left foot. There are chronic soft tissue calcifications plantar to the calcaneus. IMPRESSION: Acute fracture first proximal phalanx. ACT 112: Negative or not required by law. Electronically signed by: Jonathan Rogers M.D. 11/06/2024 9:33 AM Knee X-Ray 11/06/24 08:40 XR femur LT 2V routine, XR knee LT 1 or 2V routine CLINICAL HISTORY: knee pain COMPARISON: None FINDINGS: Evaluation of the left hip is limited by habitus and technical factors. No fracture or dislocation seen at the left femur or the left knee. Left knee prosthesis shows no hardware complication. IMPRESSION: No fracture seen. ACT 112: Negative or not required by law. Electronically signed by: Jonathan Rogers M.D. 11/06/2024 9:[address] 11/06/24 11:02 CT chest diagnostic wo con CT DOSE: 2059 CLINICAL HISTORY: acute on chronic hypoxemic failure. TECHNIQUE: Multiaxial CT images of the chest were performed without contrast. A dose lowering technique was utilized adhering to the principles of ALARA. COMPARISON STUDY: 07/22/2024 FINDINGS: Endotracheal tube tip is between the thoracic inlet and the rafy. There is consolidation of the majority of the left lower lung lobe. There is scattered bandlike and patchy consolidation throughout the right lower lobe. There is no pleural effusion or pneumothorax. No enlarged adenopathy. There is prominent cardiomegaly with prominence of the pulmonary vasculature suggesting CHF. There are coronary artery and aortic calcifications. There are aortic valvular and mitral valvular calcifications. No pericardial effusion. There are mild diffuse thoracic spine degenerative changes. IMPRESSION: 1. Well-positioned endotracheal tube. 2. CHF without pleural effusions. 3. Dense consolidation at the majority of the left lower lobe and bandlike and patchy consolidation scattered at the right lower lobe. ACT 112: Negative or not required by law. Electronically signed by: Jonathan Rogers M.D. 11/06/2024 1:[address] 11/06/24 11:32 CT SCAN OF THE CERVICAL SPINE CLINICAL HISTORY: Fall. COMPARISON STUDY: None. TECHNIQUE: CT scan of the cervical spine is performed from the skull base to the upper thoracic spine. Images are reviewed in the axial, sagittal, and coronal planes. IV contrast was not administered for this examination. A dose lowering technique was utilized adhering to the principles of ALARA. CT DOSE: 2060.09 mGy.cm FINDINGS: Endotracheal tube is incidentally noted. Alignment of the cervical spine is anatomic. No acute cervical spine fractures are present. There is mild disc space narrowing and endplate osteophytosis within the cervical spine. Moderate multilevel facet arthrosis is present. Degenerative changes at the craniocervical junction are present. There are no acute cervical spine fracture. No prevertebral edema. IMPRESSION: No acute cervical spine fracture or subluxation. ACT 112: Negative or not required by law. Electronically signed by: Jose Lentz M.D. 11/06/2024 1:[address] 11/06/24 11:32 CT head/brain wo con CLINICAL HISTORY: 84 years-old Female with lethargy. Acutely altered mental status TECHNIQUE: Multiple axial CT images of the head were obtained without contrast. A dose lowering technique was utilized adhering to the principles of ALARA. COMPARISON: CT cervical spine of same day, head CT 03/21/2022 FINDINGS: No acute intracranial hemorrhage, midline shift, intracranial mass, hydrocephalus, territorial ischemia or abnormal extra-axial collection. Involutional changes with probable mild chronic microvascular ischemic disease. The calvarium is intact. Prior bilateral lens repair. The paranasal sinuses, mastoid air cells, and middle ear cavities are clear. IMPRESSION: No acute intracranial abnormality. ACT 112: Negative or not required by law. The above report was generated using voice recognition software. It may contain grammatical, syntax or spelling errors. Electronically signed by: Kong Rojas M.D. 11/06/2024 1:38 PM Chest X-Ray 11/06/24 12:57 XR chest 1V portable CLINICAL HISTORY: post intubation COMPARISON STUDY: 11/06/2024 FINDINGS: Endotracheal tube tip is at the thoracic inlet. There is stable prominent cardiomegaly with pulmonary vascular congestion. Stable hazy opacity at the left base. No pneumothorax. IMPRESSION: Well-positioned endotracheal tube. ACT 112: Negative or not required by law. Electronically signed by: Jonathan Rogers M.D. 11/06/2024 1:13 PM KUB X-Ray 11/06/24 16:02 EXAM: XR KUB/Abdomen 1 view CLINICAL HISTORY: Verify placement of OGT. TECHNIQUE: X-ray images of the abdomen were obtained in AP view. COMPARISON: CT dated 03/27/[address] dated 07/22/2024 were reviewed FINDINGS: Gas Pattern: Nasogastric tube is seen below the level of the diaphragm at the level of the gastric fundus. Multiple LEDs are seen implicating the chest and abdomen. The lower chest shows mild left pleural effusion and blunting of the right costophrenic angle. Gas pattern within the abdomen is normal. No evidence of bowel obstruction or distention. Soft Tissues: Soft tissues of the abdomen appear normal without evidence of masses or calcifications. Liver, spleen, and kidneys are of normal size and position. IMPRESSION: 1. The nasogastric tube is seen in place. 2. The lower chest shows mild left pleural effusion and blunting of the right costophrenic angle, Stable since prior CT dated 07/22/2024. Electronically signed by Tong Barajas 11-06-2024 5:38 PM (1) Closed fracture of one or more phalanges of foot Encounter type: initial encounter Fracture alignment: displaced Laterality: left Phalanx: proximal Toe: great toe Qualified Code(s): S92.412A - Displaced fracture of proximal phalanx of left great toe, initial encounter for closed fracture
[2024-11-06] MEDS ORDERED: PIPERACILLIN/TAZOBACTAM 4.5 GM/100 ML BAG IV SCH (20:00)
[2024-11-06] MEDS: BUDESONIDE 0.5 MG/2 ML VIAL (PULMICORT) NEB SCH (20:10)
[2024-11-06] MEDS: FORMOTEROL 20 MCG/2 ML VIAL NEB SCH (20:10)
[2024-11-06 20:56] LABS: Hemoglobin 9.1 g/dl (12.0-16.0)
[2024-11-06] MEDS ORDERED: PANTOprazole 40 MG/10 ML SYR IV SCH (21:00)
[2024-11-06] MEDS: MONTELUKAST SODIUM 10 MG TABLET PO SCH (21:58)
[2024-11-06] MEDS: METOPROLOL TARTRATE 25 MG TAB PO SCH (21:58)
[2024-11-06] MEDS: PREGABALIN 100 MG CAP PO SCH (21:59)
[2024-11-06] MEDS ORDERED: HEPARIN SOD 5,000 UNIT/0.5 ML VIAL SQ SCH (22:00)
[2024-11-06 23:58] LABS: Appearance Urine Clear (Clear); Bacteria Urine Automated None Seen (None Seen); Bilirubin Urine Negative (Negative); Blood Urine Negative (Negative); Color Urine Yellow; Epithelial Cell Urine Auto 0-2 /hpf (0-2); Glucose Urine UA Negative (Negative); Ketones Urine Trace (Negative); Leukocyte Esterase Urine 1+ (Negative); Nitrite Urine Negative (Negative); Protein Urine Negative (Negative); RBC Urine Automated 0-2 /hpf (0-2); Specific Gravity Urine 1.018 (1.000-1.030); Urobilinogen Urine Negative (Negative)
[2024-11-07 03:17] LABS: BUN Creatinine Ratio 21.6 (10-20); Basophils # (auto) 0.03 K/uL (0.00-0.20); Basophils % (auto) 0.3 %; Calcium 8.2 mg/dl (8.6-10.3); Creatinine Clr Calc Pharmacy 30.9 ml/min; Eosinophils # (auto) 0.13 K/uL (0.00-0.50); Eosinophils % (auto) 1.5 %; Hematocrit (blood only) 26.1 % (37.0-47.0); Hemoglobin 8.4 g/dl (12.0-16.0); Immature Granulocytes # (auto) 0.04 K/uL (0.01-0.20); Immature Granulocytes % (auto) 0.4 %; Lymphocytes % (auto) 10.1 %; Magnesium 1.9 mg/dl (1.7-2.4); Mean Corpuscular Hemoglobin 30.5 pg (25.0-34.0); Mean Corpuscular Hgb Conc 32.2 g/dL (32.0-36.0); Mean Corpuscular Volume 94.9 fL (80.0-100.0); Monocytes % (auto) 7.8 %; Neutrophils # (auto) 7.13 K/uL (1.40-6.50); Neutrophils % (auto) 79.9 %; Phosphorus 3.8 mg/dl (2.5-4.9); Platelet Count 120 K/uL (130-400); Potassium 4.2 mmol/L (3.5-5.1); RDW Coefficient of Variation 14.7 % (11.5-14.5); RDW Standard Deviation 51.6 fL (36.4-46.3); Red Blood Count 2.75 M/uL (4.20-5.40); White Blood Count 8.93 K/ul (4.8-10.8)
[2024-11-07] MEDS: PROPOFOL BOLUS FROM BAG IV PRN (03:44)
[2024-11-07] MEDS: MAGNESIUM SULFATE / D5W 1 GM/100 ML BAG IV ONE (03:46)
--- NOTE | 2024-11-07 07:25 | XRay Report ---
EXAM: XR chest 1V portable CLINICAL HISTORY: f/u TECHNIQUE: Radiograph of chest was acquired. COMPARISON: 07/21/2024 20:39:27 [employer] FINDINGS: Endotracheal tube in situ 2.8cm above rafy. Gastric tube seen with tip below left hemidiaphragm. Blunting of bilateral costophrenic angles, left more than right. The cardiomediastinal silhouette is enlarged. No acute osseous abnormality. IMPRESSION: 1. Endotracheal tube in situ 2.8cm above rafy. 2. Blunting of bilateral costophrenic angles, left more than right, suggestive of bilateral pleural effusion. Decrease in left pleural effusion compared to previous scan. Electronically signed by Tanvir Bagley 11-07-2024 07:25 AM
[2024-11-07] MEDS: PANTOprazole 40 MG/10 ML SYR IV SCH (08:10)
[2024-11-07 09:01] LABS: Hematocrit (blood only) 25.8 % (37.0-47.0); Hemoglobin 8.3 g/dl (12.0-16.0)
--- NOTE | 2024-11-07 10:22 | Critical Care Progress Note ---
Date of Service November 07, 2024 Assessment & Plan (1) Acute on chronic hypoxic respiratory failure: (2) ERIK (obstructive sleep apnea): (3) (HFpEF) heart failure with preserved ejection fraction: (4) Pulmonary edema: (5) Morbid obesity: (6) Nocturnal hypoxia: (7) SOB (shortness of breath): (8) Hypertension, accelerated: (9) Hyperlipidemia: (10) Recurrent falls: (11) Obesity hypoventilation syndrome: Plan Reason Critically Ill: 84-year-old female with a significant history of restrictive lung disease, chronic respiratory failure with hypoxia on 3 L at baseline, ERIK, CHF, CKD 3, and aortic stenosis who was intubated in the emergency department in the setting of respiratory failure. 24-hour events: The patient was placed on SBT earlier this morning. She was unable to tolerate due to desaturations and was returned back to full ventilatory support. Repeat SBT was performed a few hours later with the patient showing improved respiratory indices. Recommendations NEURO -encephalopathy improved. Has evidence of delirium currently. Continue propofol until family arrives later today. See comments below. Hold Lyrica CARDIAC/VASCULAR -patient's required intermittent doses of vasopressor agents largely associated with sedation. Continue to wean as tolerated. Random cortisol low and the patient is on chronic steroids in the outpatient setting. Continue hydrocortisone and Florinef. Holding diuretics for now. Continue midodrine RESPIRATORY -obesity hypoventilation syndrome noncompliant with CPAP/BiPAP in the outpatient setting. Hypercarbic respiratory failure improved. Discussed with family. They do not want to pursue intubation in the development of a failed extubation. They will plan on being here around 1:00 as they would like to be present once the patient is extubated. Will continue propofol for sedation and ventilatory support. Her most recent SBT showed an RSBI of around 50. Will likely need to extubate to BiPAP unless family requests to not do that. Should she fail, will initiate comfort measures. GI/NUTRITION -plan on extubation later today so hold any enteral intake RENAL/LYTES -chronic kidney disease. Renal function improved today but not quite back to baseline. Continue to follow. Electrolytes, and acid-base status stable. Remains mildly fluid. Discontinue IV fluids -Vazquez catheter for now ENDO - glycemic control per protocol. Continue Synthroid once able to take p.o. HEME -mild decrease in hemoglobin and hematocrit this morning. No obvious evidence of acute blood loss. No indication for transfusion. ID -off antibiotics. Afebrile. Continue to follow clinically LINES/IV ACCESS - * PIVs x2 * ETT * Vazquez DVT PROPHYLAXIS - * Heparin SQ * SCDs Will observe in the ICU until liberated from mechanical ventilation. Discussed with family on the phone Admission and Anticipated Discharge Date Admission Date: November 06, 2024 Subjective Patient seen and examined. EMR reviewed. Discussed with critical care overnight SONIA as well as with bedside critical care nurse and on multidisciplinary rounds. Family was updated by phone. The patient remains intubated and sedated Review of Systems Review of Systems: Unobtainable due to endotracheal tube Physical Exam Constitutional: + morbidly obese and + mechanically vent ilated; no acute distress Neck: trachea midline, no thyromegaly Respiratory: normal respiratory effort, lungs clear to auscultation Cardiovascular: RRR, no murmur, no edema Gastrointestinal (Abdomen): normal bowel sounds, soft, nontender, no hepatosplenomegaly Musculoskeletal: Ecchymoses on the dorsum of the left foot as well as around the knee Skin: no rashes, warm and dry Neurologic: Sedated Lymphatic: no cervical lymphadenopathy Results & Data Results & Data Vital Signs (Past 12 Hours) Vital Signs Temp Pulse Resp BP Pulse Ox O2 Del Method FiO2 11/07/24 09:45 92/43 L 11/07/24 09:36 63 20 93 11/07/24 09:36 82/32 L 11/07/24 09:32 75/36 L 11/07/24 09:18 64 20 92 11/07/24 09:07 78/35 L 11/07/24 09:06 70 25 H 89 L 11/07/24 09:05 59/46 L 11/07/24 08:54 69 20 91 11/07/24 08:42 75 24 89 L 11/07/24 08:21 83 24 88 L 11/07/24 08:01 152/120 H 11/07/24 08:00 67 11/07/24 08:00 Mechanical Vent 11/07/24 08:00 36.9 C Mechanical Vent 11/07/24 08:00 60 11/07/24 08:00 50 11/07/24 07:51 81 30 H 88 L 11/07/24 07:30 81 34 H 74 L 11/07/24 07:30 67 20 90 50 11/07/24 07:09 74 22 89 L 11/07/24 07:00 86/52 L 11/07/24 06:54 71 20 86 L 11/07/24 06:30 72 20 90 11/07/24 06:30 90/51 L 11/07/24 05:33 74 20 92 11/07/24 05:30 120/61 11/07/24 05:30 120/61 11/07/24 05:24 75 20 91 11/07/24 05:00 100/57 L 11/07/24 05:00 100/57 L 11/07/24 05:00 100/57 L 11/07/24 05:00 71 20 93 11/07/24 04:48 69 24 93 11/07/24 04:18 73 21 91 11/07/24 04:13 121/58 L 11/07/24 04:03 86/51 L 11/07/24 04:00 50 11/07/24 03:48 37.3 C 77 19 89 L 11/07/24 03:47 76 20 90 50 11/07/24 03:30 78 20 88 L 11/07/24 03:00 82 20 90 11/07/24 03:00 128/58 L 11/07/24 02:33 80 20 89 L 11/07/24 02:00 81 20 90 11/07/24 02:00 126/60 11/07/24 01:30 82 20 89 L 11/07/24 01:03 84 21 89 L 11/07/24 01:00 113/60 11/07/24 01:00 113/60 11/07/24 00:45 82 20 89 L Mechanical Vent 50 11/07/24 00:20 Mechanical Vent 11/07/24 00:05 69 11/07/24 00:03 80 22 89 L 11/07/24 00:00 116/61 11/07/24 00:00 37.6 C H 116/61 11/07/24 00:00 50 11/06/24 23:54 78 20 87 L 11/06/24 23:30 69 20 90 11/06/24 23:00 117/60 11/06/24 23:00 70 20 90 11/06/24 22:48 69 20 91 11/06/24 22:45 70 20 91 50 Critical Care Results & Data Vital Signs (Past 12 Hours) Vital Signs Temp Pulse Resp BP Pulse Ox O2 Del Method FiO2 11/07/24 09:45 92/43 L 11/07/24 09:36 63 20 93 11/07/24 09:36 82/32 L 11/07/24 09:32 75/36 L 11/07/24 09:18 64 20 92 11/07/24 09:07 78/35 L 11/07/24 09:06 70 25 H 89 L 11/07/24 09:05 59/46 L 11/07/24 08:54 69 20 91 11/07/24 08:42 75 24 89 L 11/07/24 08:21 83 24 88 L 11/07/24 08:01 152/120 H 11/07/24 08:00 67 11/07/24 08:00 Mechanical Vent 11/07/24 08:00 36.9 C Mechanical Vent 11/07/24 08:00 60 11/07/24 08:00 50 11/07/24 07:51 81 30 H 88 L 11/07/24 07:30 81 34 H 74 L 11/07/24 07:30 67 20 90 50 11/07/24 07:09 74 22 89 L 11/07/24 07:00 86/52 L 11/07/24 06:54 71 20 86 L 11/07/24 06:30 72 20 90 11/07/24 06:30 90/51 L 11/07/24 05:33 74 20 92 11/07/24 05:30 120/61 11/07/24 05:30 120/61 11/07/24 05:24 75 20 91 11/07/24 05:00 100/57 L 11/07/24 05:00 100/57 L 11/07/24 05:00 100/57 L 11/07/24 05:00 71 20 93 11/07/24 04:48 69 24 93 11/07/24 04:18 73 21 91 11/07/24 04:13 121/58 L 11/07/24 04:03 86/51 L 11/07/24 04:00 50 11/07/24 03:48 37.3 C 77 19 89 L 11/07/24 03:47 76 20 90 50 11/07/24 03:30 78 20 88 L 11/07/24 03:00 82 20 90 11/07/24 03:00 128/58 L 11/07/24 02:33 80 20 89 L 11/07/24 02:00 81 20 90 11/07/24 02:00 126/60 11/07/24 01:30 82 20 89 L 11/07/24 01:03 84 21 89 L 11/07/24 01:00 113/60 11/07/24 01:00 113/60 11/07/24 00:45 82 20 89 L Mechanical Vent 50 11/07/24 00:20 Mechanical Vent 11/07/24 00:05 69 11/07/24 00:03 80 22 89 L 11/07/24 00:00 116/61 11/07/24 00:00 37.6 C H 116/61 11/07/24 00:00 50 11/06/24 23:54 78 20 87 L 11/06/24 23:30 69 20 90 11/06/24 23:00 117/60 11/06/24 23:00 70 20 90 11/06/24 22:48 69 20 91 11/06/24 22:45 70 20 91 50 Lab & Micro Results (Past 24 Hours) RBC 2.75 M/uL (4.20-5.40) L 11/07/24 WBC 8.93 K/ul (4.8-10.8) 11/07/24 Hgb 8.3 g/dl (12.0-16.0) L 11/07/24 Hct 25.8 % (37.0-47.0) L 11/07/24 MCV 94.9 fL (80.0-100.0) 11/07/24 MCH 30.5 pg (25.0-34.0) 11/07/24 MCHC 32.2 g/dL (32.0-36.0) 11/07/24 RDW Standard Deviation 51.6 fL (36.4-46.3) H 11/07/24 RDW Coefficient of Variation 14.7 % (11.5-14.5) H 11/07/24 Plt Count 120 K/uL (130-400) L 11/07/24 MPV 12.0 fL (9.4-12.4) 11/07/24 Neutrophils (%) (Auto) 79.9 % 11/07/24 Lymphocytes (%) (Auto) 10.1 % 11/07/24 Monocytes # (Auto) 0.70 K/uL (0.11-0.59) H 11/07/24 Eosinophils # (Auto) 0.13 K/uL (0.00-0.50) 11/07/24 Immature Granulocyte % (Auto) 0.4 % 11/07/24 Neutrophils # (Auto) 7.13 K/uL (1.40-6.50) H 11/07/24 Lymphocytes # (Auto) 0.90 K/uL (1.20-3.40) L 11/07/24 Monocytes # (Auto) 0.70 K/uL (0.11-0.59) H 11/07/24 Eosinophils # (Auto) 0.13 K/uL (0.00-0.50) 11/07/24 Basophils # (Auto) 0.03 K/uL (0.00-0.20) 11/07/24 Immature Granulocyte # (Auto) 0.04 K/uL (0.01-0.20) 5 Na 142 mmol/L (136-145) 11/07/24 K 4.2 mmol/L (3.5-5.1) 11/07/24 Cl 107 mmol/L (98-107) 11/07/24 CO2 29 mmol/L (21-32) 11/07/24 Anion Gap 6 (3-11) 11/07/24 BUN 41 mg/dl (6-23) H 11/07/24 Creatinine 1.90 mg/dl (0.6-1.2) H 11/07/24 BUN/Creatinine Ratio 21.6 (10-20) H 11/07/24 Glu 107 mg/dl (70-99(Fasting)) H 11/07/24 Ca 8.2 mg/dl (8.6-10.3) L 11/07/24 Phosphorus Level 3.8 mg/dl (2.5-4.9) 11/07/24 Mg 1.9 mg/dl (1.7-2.4) 11/07/24 02:39 Calcium Level 8.2 mg/dl (8.6-10.3) L 11/07/24 02:39 Venous Blood pH 7.21 (7.36-7.41) L 11/06/24 11:49 Venous Blood Partial Pressure CO2 74 mmHg (38-50) H 11/06/24 11 :49 Venous Blood Partial Pressure O2 29 mmHg 11/06/24 11:49 Venous Blood HCO3 30 mmol/L 11/06/24 11:49 Venous Blood Base Excess -0.3 mEq/L 11/06/24 11:49 Venous Blood Oxygen Saturation < 60.0 % 11/06/24 11:49 Peyman Test Pass 11/06/24 13:45 Microbiology 11/06/24 Unknown Gram Stain - Final Sputum, Expectorated Diagnostic Findings (Past 24 Hours) Chest CT 11/06/24 11:02 CT chest diagnostic wo con CT DOSE: 2059 CLINICAL HISTORY: acute on chronic hypoxemic failure. TECHNIQUE: Multiaxial CT images of the chest were performed without contrast. A dose lowering technique was utilized adhering to the principles of ALARA. COMPARISON STUDY: 07/22/2024 FINDINGS: Endotracheal tube tip is between the thoracic inlet and the rafy. There is consolidation of the majority of the left lower lung lobe. There is scattered bandlike and patchy consolidation throughout the right lower lobe. There is no pleural effusion or pneumothorax. No enlarged adenopathy. There is prominent cardiomegaly with prominence of the pulmonary vasculature suggesting CHF. There are coronary artery and aortic calcifications. There are aortic valvular and mitral valvular calcifications. No pericardial effusion. There are mild diffuse thoracic spine degenerative changes. IMPRESSION: 1. Well-positioned endotracheal tube. 2. CHF without pleural effusions. 3. Dense consolidation at the majority of the left lower lobe and bandlike and patchy consolidation scattered at the right lower lobe. ACT 112: Negative or not required by law. Electronically signed by: Jonathan Rogers M.D. 11/06/2024 1:[address] 11/06/24 11:32 CT SCAN OF THE CERVICAL SPINE CLINICAL HISTORY: Fall. COMPARISON STUDY: None. TECHNIQUE: CT scan of the cervical spine is performed from the skull base to the upper thoracic spine. Images are reviewed in the axial, sagittal, and coronal planes. IV contrast was not administered for this examination. A dose lowering technique was utilized adhering to the principles of ALARA. CT DOSE: 0.09 mGy.cm FINDINGS: Endotracheal tube is incidentally noted. Alignment of the cervical spine is anatomic. No acute cervical spine fractures are present. There is mild disc space narrowing and endplate osteophytosis within the cervical spine. Moderate multilevel facet arthrosis is present. Degenerative changes at the craniocervical junction are present. There are no acute cervical spine fracture. No prevertebral edema. IMPRESSION: No acute cervical spine fracture or subluxation. ACT 112: Negative or not required by law. Electronically signed by: Jose Lentz M.D. 11/06/2024 1:[address] 11/06/24 11:32 CT head/brain wo con CLINICAL HISTORY: 84 years-old Female with lethargy. Acutely altered mental status TECHNIQUE: Multiple axial CT images of the head were obtained without contrast. A dose lowering technique was utilized adhering to the principles of ALARA. COMPARISON: CT cervical spine of same day, head CT 03/21/2022 FINDINGS: No acute intracranial hemorrhage, midline shift, intracranial mass, hydrocephalus, territorial ischemia or abnormal extra-axial collection. Involutional changes with probable mild chronic microvascular ischemic disease. The calvarium is intact. Prior bilateral lens repair. The paranasal sinuses, mastoid air cells, and middle ear cavities are clear. IMPRESSION: No acute intracranial abnormality. ACT 112: Negative or not required by law. The above report was generated using voice recognition software. It may contain grammatical, syntax or spelling errors. Electronically signed by: Kong Rojas M.D. 11/06/2024 1:38 PM Chest X-Ray 11/06/24 12:57 XR chest 1V portable CLINICAL HISTORY: post intubation COMPARISON STUDY: 11/06/2024 FINDINGS: Endotracheal tube tip is at the thoracic inlet. There is stable prominent cardiomegaly with pulmonary vascular congestion. Stable hazy opacity at the left base. No pneumothorax. IMPRESSION: Well-positioned endotracheal tube. ACT 112: Negative or not required by law. Electronically signed by: Jonathan Rogers M.D. 11/06/2024 1:13 PM KUB X-Ray 11/06/24 16:02 EXAM: XR KUB/Abdomen 1 view CLINICAL HISTORY: Verify placement of OGT. TECHNIQUE: X-ray images of the abdomen were obtained in AP view. COMPARISON: CT dated 03/27/[address] dated 07/22/2024 were reviewed FINDINGS: Gas Pattern: Nasogastric tube is seen below the level of the diaphragm at the level of the gastric fundus. Multiple LEDs are seen implicating the chest and abdomen. The lower chest shows mild left pleural effusion and blunting of the right costophrenic angle. Gas pattern within the abdomen is normal. No evidence of bowel obstruction or distention. Soft Tissues: Soft tissues of the abdomen appear normal without evidence of masses or calcifications. Liver, spleen, and kidneys are of normal size and position. IMPRESSION: 1. The nasogastric tube is seen in place. 2. The lower chest shows mild left pleural effusion and blunting of the right costophrenic angle, Stable since prior CT dated 07/22/2024. Electronically signed by Tong Barajas 11-06-2024 5:38 PM Chest X-Ray 11/07/24 07:00 EXAM: XR chest 1V portable CLINICAL HISTORY: f/u TECHNIQUE: Radiograph of chest was acquired. COMPARISON: 07/21/2024 20:39:27 PATIENT SUPPORT ASSISTANT FINDINGS: Endotracheal tube in situ 2.8cm above rafy. Gastric tube seen with tip below left hemidiaphragm. Blunting of bilateral costophrenic angles, left more than right. The cardiomediastinal silhouette is enlarged. No acute osseous abnormality. IMPRESSION: 1. Endotracheal tube in situ 2.8cm above rafy. 2. Blunting of bilateral costophrenic angles, left more than right, suggestive of bilateral pleural effusion. Decrease in left pleural effusion compared to previous scan. Electronically signed by Tanvir Bagley 11-07-2024 07:25 AM I & O Totals 24 Hours 11/06/24 11/07/24 11/08/24 06:59 06:59 06:59 Intake Total 2164.122 / 2164.122 1118.232 / 1118.232 Output Total 375 / 375 100 / 100 Balance 1789.122 / 9619.045 0644.232 / 1018.232 Cumulative 11/06/24 07:30 thru 11/07/24 10:03 Intake Total 3282.354 Output Total 475 Balance 2807.354 RT Ventilator Mngmt (Last Documented) Ventilator Ordered Settings Ventilator Support Mode Assist Control 11/07/24 08:00 Respiratory Rate 20 11/07/24 09:36 Ventilator Tidal Volume 400 11/07/24 08:00 Setting Minute Ventilation 8 11/07/24 07:30 Positive End Expiratory 5 11/07/24 08:00 Pressure Fraction of Inspired Oxygen 60 11/07/24 08:00 Ventilator - PT Measurements Respiratory Rate 20 Exhaled Tidal Volume 400 Minute Ventilation 8 Peak Inspiratory Airway 21 Pressure Plateau Pressure 16 Respiratory Cycle Inspiratory: 1:3 Expiratory Ratio Inspiratory Phase Time 0.75 End-Tidal CO2 32 Static Lung Compliance 36.36 Dynamic Lung Compliance 25.00 Normal Static Lung Compliance 46.00 Patient Measurements Comment PT SBT ENDED AT THIS TIME, SPO2 DROPPED, ETCO2 ELEVATED. MD GONZALEZ Coding Level of Care Code 40047 SUB INP/OBS CARE 3/50MIN Diagnoses Acute on chronic hypoxic respiratory failure J96.21 ERIK (obstructive sleep apnea) G47.33 Heart failure with preserved ejection fraction, unspecified HF chronicity I50.30 Heart failure chronicity: unspecified Pulmonary edema J81.1 Morbid obesity E66.01 Nocturnal hypoxia G47.34 SOB (shortness of breath) R06.02 Hypertension, accelerated I10 Mixed hyperlipidemia E78.2 Hyperlipidemia type: mixed hyperlipidemia Recurrent falls R29.6 Obesity hypoventilation syndrome E66.2 (3) (HFpEF) heart failure with preserved ejection fraction Heart failure chronicity: unspecified Qualified Code(s): I50.30 - Unspecified diastolic (congestive) heart failure (9) Hyperlipidemia Hyperlipidemia type: mixed hyperlipidemia Qualified Code(s): E78.2 - Mixed hyperlipidemia
[2024-11-07 15:09] LABS: Hematocrit (blood only) 24.6 % (37.0-47.0)
[2024-11-07] MEDS: ACETAMINOPHEN 1,000 MG/100 ML VIAL IV PRN (15:43)
--- NOTE | 2024-11-07 15:49 | Hospitalist Progress Note ---
Date of Service November 07, 2024 Assessment & Plan (1) Acute on chronic hypoxic respiratory failure: (2) Recurrent falls: (3) Hypotension: (4) Acute kidney injury superimposed on CKD: (5) Elevated troponin: (6) Obesity hypoventilation syndrome: (7) (HFpEF) heart failure with preserved ejection fraction: (8) Morbid obesity: (9) Hypothyroidism (acquired): Plan per admitting service notes This is an 84 y/o female with chronic hypoxic respiratory failure, on 3L of oxygen at baseline, 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 History obtained from pt's daughter - pt has had multiple falls over the last few days. Has been noncompliant with recommended CPAP and family is unsure that pt is using O2 correctly at night. #Acute on chronic hypoxemic respiratory failure #CO2 retention/Obesity hypoventilation syndrome #Moderate Aortic Stenosis/Moderate to Severe Aortic Insufficiency #HFpEF Metabolic encephalopathy - Admit to PCU - Continue BiPAP for respiratory support - trend VBG - CT chest to further delineate left lung base opacity - Check BNP, troponin - Empiric antibiotic coverage for possible pneumonia - spoke with pharmacy due to pt's multiple allergies, will cover with Zosyn/vancomycin - Blood cultures, sputum culture - Update ECHO - will determine need for cardio consult once this is available - Consult pulmonology 11/07 Hypercarbic respiratory failure improved extubated today monitor closely no plans for reintubation if patient fails extubation antibiotics discontinued #Possible Adrenal Insufficiency hydrocortisone IV , p.o. Florinef and midodrine started #YUNI on CKD - baseline creatinine appears to be 1.1-1.2, decreased urine output over last few days - Hold nephrotoxins - Received 500 cc IVF in the ED - Creatinine improving #Anemia - new from prior admission, no clear source of blood loss - Check FOBT - PPI - Trend H&H #Right first phalanx fracture - Ortho consult - Pain control #Recurrent falls (new over past few days) - Fall precautions - Eventual PT/OT once more medically stable - Family would like to consider rehab or increased level of care such as assisted living at discharge, concerned about pt's ability to live alone safely Code status: transitioned to DNR DVT prophylaxis: SCDs Admission and Anticipated Discharge Date Admission Date: November 06, 2024 Subjective seen resting in bed, sitting up, comfortable, awake and alert, on 3 L of O2 via nasal cannula Reports she feels fine overall Denies shortness of breath, chest pain, palpitations, dizziness Reports left knee and foot pain No other new symptoms Review of Systems Review of Systems: all noted and negative except for above Physical Exam Physical Exam: General- oriented x 3, not in distress, speaks in sentences with no effort or accessory muscle use Eyes- anicteric Neck- no JVD Lungs- clear breath sounds bilaterally, no rales/wheezes Heart- normal rate, regular rhythm; no murmurs Abdomen- normal bowel sounds, nondistended, soft, nontender Extremities- no pretibial edema, no calf tenderness (+) hematoma L knee Neuro- alert, oriented x 3; no gross focal neurologic deficits Skin- warm & dry Results & Data Results & Data Vital Signs (Past 12 Hours) Vital Signs Temp Pulse Resp BP Pulse Ox O2 Del Method FiO2 11/07/24 15:30 77 17 87 L 11/07/24 15:30 37.5 C 11/07/24 15:00 77 27 H 89 L 11/07/24 14:36 74 17 89 L 11/07/24 14:31 106/64 11/07/24 14:27 71 17 93 11/07/24 14:09 75 28 H 94 11/07/24 14:01 69/57 L 11/07/24 13:45 72 20 93 11/07/24 13:33 71 24 90 11/07/24 13:33 71 22 92 30 11/07/24 13:31 130/79 11/07/24 13:21 72 24 91 11/07/24 13:01 97/48 L 11/07/24 13:00 66 24 92 11/07/24 12:46 119/50 L 11/07/24 12:21 66 20 95 11/07/24 12:16 92/37 L 11/07/24 12:09 63 20 94 11/07/24 12:03 66 20 94 11/07/24 12:00 88/51 L 11/07/24 12:00 60 11/07/24 11:57 71 20 94 11/07/24 11:45 86/60 L 11/07/24 11:39 66 20 93 11/07/24 11:30 67 20 93 11/07/24 11:30 109/43 L 11/07/24 11:00 101/66 11/07/24 11:00 67 20 92 11/07/24 10:48 69 22 88 L 11/07/24 10:46 94/57 L 11/07/24 10:46 94/57 L 11/07/24 10:46 94/57 L 11/07/24 10:45 67 21 91 11/07/24 10:31 101/61 11/07/24 10:31 101/61 11/07/24 10:30 69 21 93 11/07/24 10:15 60 21 95 11/07/24 10:15 105/32 L 11/07/24 10:06 61 20 94 11/07/24 10:00 84/57 L 11/07/24 09:48 63 20 94 11/07/24 09:45 92/43 L 11/07/24 09:36 63 20 93 11/07/24 09:36 82/32 L 11/07/24 09:32 75/36 L 11/07/24 09:18 64 20 92 11/07/24 09:07 78/35 L 11/07/24 09:06 70 25 H 89 L 11/07/24 09:05 59/46 L 11/07/24 08:54 69 20 91 11/07/24 08:42 75 24 89 L 11/07/24 08:21 83 24 88 L 11/07/24 08:01 152/120 H 11/07/24 08:00 67 11/07/24 08:00 Mechanical Vent 11/07/24 08:00 36.9 C Mechanical Vent 11/07/24 08:00 60 11/07/24 08:00 50 11/07/24 07:51 81 30 H 88 L 11/07/24 07:30 81 34 H 74 L 11/07/24 07:30 67 20 90 50 11/07/24 07:09 74 22 89 L 11/07/24 07:00 86/52 L 11/07/24 06:54 71 20 86 L 11/07/24 06:30 72 20 90 11/07/24 06:30 90/51 L 11/07/24 05:33 74 20 92 11/07/24 05:30 120/61 11/07/24 05:30 120/61 11/07/24 05:24 75 20 91 11/07/24 05:00 100/57 L 11/07/24 05:00 100/57 L 11/07/24 05:00 100/57 L 11/07/24 05:00 71 20 93 11/07/24 04:48 69 24 93 11/07/24 04:18 73 21 91 11/07/24 04:13 121/58 L 11/07/24 04:03 86/51 L 11/07/24 04:00 50 all noted and reviewed including below (3) Hypotension Hypotension type: unspecified hypotension type Qualified Code(s): I95.9 - Hypotension, unspecified (7) (HFpEF) heart failure with preserved ejection fraction Heart failure chronicity: unspecified Qualified Code(s): I50.30 - Unspecified diastolic (congestive) heart failure
[2024-11-07] MEDS: traMADol HCL 50 MG TABLET PO STA (17:04)
--- NOTE | 2024-11-07 20:27 | Orthopedic Progress Note ---
Date of Service November 07, 2024 Assessment & Plan (1) Closed fracture of one or more phalanges of foot: Plan: IMPRESSION: Left great toe proximal phalanx, intra-articular fracture, closed, comminuted, mildly displaced PLAN: RICE ISAK & SCDs BLE WBAT through heel in post-op shoe when able. Decubitus precations and waffle boots while in bed. Pain control per primary service. Patient PSHx L TKA by Dr. Desai, recommended consulting [facility] for left knee. Continue care per primary service Admission and Anticipated Discharge Date Admission Date: November 06, 2024 Subjective Intubated, nods that she has left great toe pain. Physical Exam Physical Exam: Pt is intubated. LLE: BCR < 2sec. Sensation to light touch intact. Able to wiggle toes. Previous anterior knee incision is well healed. + Swelling & bruising about the great toe and anterior knee. + tenderness to palpation left great toe. Results & Data Vital Signs (Past 12 Hours) Vital Signs Temp Pulse Resp BP Pulse Ox O2 Del Method O2 Flow Rate 11/07/24 18:30 83 19 89 L 11/07/24 18:00 80 20 88 L 11/07/24 17:18 79 23 89 L 11/07/24 17:00 104/64 11/07/24 16:48 79 22 89 L 11/07/24 16:17 96 Nasal Cannula 3 11/07/24 16:09 77 32 H 89 L 11/07/24 16:01 139/106 H 11/07/24 15:57 80 21 88 L 11/07/24 15:35 126/30 L 11/07/24 15:33 81 20 87 L 11/07/24 15:30 77 17 87 L 11/07/24 15:30 37.5 C 11/07/24 15:00 77 27 H 89 L 11/07/24 14:36 74 17 89 L 11/07/24 14:31 106/64 11/07/24 14:27 71 17 93 11/07/24 14:09 75 28 H 94 11/07/24 14:01 69/57 L 11/07/24 13:45 72 20 93 11/07/24 13:33 71 24 90 11/07/24 13:33 71 22 92 11/07/24 13:31 130/79 11/07/24 13:21 72 24 91 11/07/24 13:01 97/48 L 11/07/24 13:00 66 24 92 11/07/24 12:46 119/50 L 11/07/24 12:21 66 20 95 11/07/24 12:16 92/37 L 11/07/24 12:09 63 20 94 11/07/24 12:03 66 20 94 11/07/24 12:00 88/51 L 11/07/24 12:00 11/07/24 11:57 71 20 94 11/07/24 11:45 86/60 L 11/07/24 11:39 66 20 93 11/07/24 11:30 67 20 93 11/07/24 11:30 109/43 L 11/07/24 11:00 101/66 11/07/24 11:00 67 20 92 11/07/24 10:48 69 22 88 L 11/07/24 10:46 94/57 L 11/07/24 10:46 94/57 L 11/07/24 10:46 94/57 L 11/07/24 10:45 67 21 91 11/07/24 10:31 101/61 11/07/24 10:31 101/61 11/07/24 10:30 69 21 93 11/07/24 10:15 60 21 95 11/07/24 10:15 105/32 L 11/07/24 10:06 61 20 94 11/07/24 10:00 84/57 L 11/07/24 09:48 63 20 94 11/07/24 09:45 92/43 L 11/07/24 09:36 63 20 93 11/07/24 09:36 82/32 L 11/07/24 09:32 75/36 L 11/07/24 09:18 64 20 92 11/07/24 09:07 78/35 L 11/07/24 09:06 70 25 H 89 L 11/07/24 09:05 59/46 L 11/07/24 08:54 69 20 91 11/07/24 08:42 75 24 89 L 11/07/24 08:21 83 24 88 L FiO2 11/07/24 18:30 11/07/24 18:00 11/07/24 17:18 11/07/24 17:00 11/07/24 16:48 11/07/24 16:17 11/07/24 16:09 11/07/24 16:01 11/07/24 15:57 11/07/24 15:35 11/07/24 15:33 11/07/24 15:30 11/07/24 15:30 11/07/24 15:00 11/07/24 14:36 11/07/24 14:31 11/07/24 14:27 11/07/24 14:09 11/07/24 14:01 11/07/24 13:45 11/07/24 13:33 11/07/24 13:33 30 11/07/24 13:31 11/07/24 13:21 11/07/24 13:01 11/07/24 13:00 11/07/24 12:46 11/07/24 12:21 11/07/24 12:16 11/07/24 12:09 11/07/24 12:03 11/07/24 12:00 11/07/24 12:00 60 11/07/24 11:57 11/07/24 11:45 11/07/24 11:39 11/07/24 11:30 11/07/24 11:30 11/07/24 11:00 11/07/24 11:00 11/07/24 10:48 11/07/24 10:46 11/07/24 10:46 11/07/24 10:46 11/07/24 10:45 11/07/24 10:31 11/07/24 10:31 11/07/24 10:30 11/07/24 10:15 11/07/24 10:15 11/07/24 10:06 11/07/24 10:00 11/07/24 09:48 11/07/24 09:45 11/07/24 09:36 11/07/24 09:36 11/07/24 09:32 11/07/24 09:18 11/07/24 09:07 11/07/24 09:06 11/07/24 09:05 11/07/24 08:54 11/07/24 08:42 11/07/24 08:21 Laboratory Results 04/22/25 04/22/25 04/22/25 Range/Units 15:48 14:42 10:48 WBC (4.8-10.8) K/ul RBC (4.20-5.40) M/uL Hgb 8.0 L (12.0-16.0) g/dl Hct 24.6 L (37.0-47.0) % MCV (80.0-100.0) fL MCH (25.0-34.0) pg MCHC (32.0-36.0) g/dL RDW Std Deviation (36.4-46.3) fL RDW Coeff of Nury (11.5-14.5) % Plt Count (130-400) K/uL MPV (9.4-12.4) fL Immature Gran % (Auto) % Neut % (Auto) % Lymph % (Auto) % Rabun % (Auto) % Eos % (Auto) % Baso % (Auto) % Neut # (Auto) (1.40-6.50) K/uL Lymph # (Auto) (1.20-3.40) K/uL Rabun # (Auto) (0.11-0.59) K/uL Eos # (Auto) (0.00-0.50) K/uL Baso # (Auto) (0.00-0.20) K/uL Immature Gran # (Auto) (0.01-0.20) K/uL Sodium (136-145) mmol/L Potassium (3.5-5.1) mmol/L Chloride (98-107) mmol/L Carbon Dioxide (21-32) mmol/L Anion Gap (3-11) BUN (6-23) mg/dl Creatinine (0.6-1.2) mg/dl Est Cr Clr Drug Dosing ml/min eGFR BUN/Creatinine Ratio (10-20) Glucose (70-99(Fasting)) mg/dl POC Glucose 135 H 144 H (70-99) mg/dl Calcium (8.6-10.3) mg/dl Phosphorus (2.5-4.9) mg/dl Magnesium (1.7-2.4) mg/dl Urine Color Urine Appearance (Clear) Urine pH (4.5-7.5) Ur Specific Trail (1.000-1.030) Urine Protein (Negative) Urine Glucose (UA) (Negative) Urine Ketones (Negative) Urine Blood (Negative) Urine Nitrite (Negative) Urine Bilirubin (Negative) Urine Urobilinogen (Negative) Ur Leukocyte Esterase (Negative) Urine WBC (Auto) (0-5) /hpf Urine RBC (Auto) (0-2) /hpf U Hyaline Cast (Auto) (0-2) /lpf U Epithel Cells (Auto) (0-2) /hpf Urine Bacteria (Auto) (None Seen) 11/07/24 11/07/24 11/07/24 Range/Units 08:35 07:06 02:39 WBC 8.93 (4.8-10.8) K/ul RBC 2.75 L (4.20-5.40) M/uL Hgb 8.3 L 8.4 L (12.0-16.0) g/dl Hct 25.8 L 26.1 L (37.0-47.0) % MCV 94.9 (80.0-100.0) fL MCH 30.5 (25.0-34.0) pg MCHC 32.2 (32.0-36.0) g/dL RDW Std Deviation 51.6 H (36.4-46.3) fL RDW Coeff of Nury 14.7 H (11.5-14.5) % Plt Count 120 L (130-400) K/uL MPV 12.0 (9.4-12.4) fL Immature Gran % (Auto) 0.4 % Neut % (Auto) 79.9 % Lymph % (Auto) 10.1 % Rabun % (Auto) 7.8 % Eos % (Auto) 1.5 % Baso % (Auto) 0.3 % Neut # (Auto) 7.13 H (1.40-6.50) K/uL Lymph # (Auto) 0.90 L (1.20-3.40) K/uL Rabun # (Auto) 0.70 H (0.11-0.59) K/uL Eos # (Auto) 0.13 (0.00-0.50) K/uL Baso # (Auto) 0.03 (0.00-0.20) K/uL Immature Gran # (Auto) 0.04 (0.01-0.20) K/uL Sodium 142 (136-145) mmol/L Potassium 4.2 (3.5-5.1) mmol/L Chloride 107 (98-107) mmol/L Carbon Dioxide 29 (21-32) mmol/L Anion Gap 6 (3-11) BUN 41 H (6-23) mg/dl Creatinine 1.90 H (0.6-1.2) mg/dl Est Cr Clr Drug Dosing 30.9 ml/min eGFR 26.04 BUN/Creatinine Ratio 21.6 H (10-20) Glucose 107 H (70-99(Fasting)) mg/dl POC Glucose 121 H (70-99) mg/dl Calcium 8.2 L (8.6-10.3) mg/dl Phosphorus 3.8 (2.5-4.9) mg/dl Magnesium 1.9 (1.7-2.4) mg/dl Urine Color Urine Appearance (Clear) Urine pH (4.5-7.5) Ur Specific Trail (1.000-1.030) Urine Protein (Negative) Urine Glucose (UA) (Negative) Urine Ketones (Negative) Urine Blood (Negative) Urine Nitrite (Negative) Urine Bilirubin (Negative) Urine Urobilinogen (Negative) Ur Leukocyte Esterase (Negative) Urine WBC (Auto) (0-5) /hpf Urine RBC (Auto) (0-2) /hpf U Hyaline Cast (Auto) (0-2) /lpf U Epithel Cells (Auto) (0-2) /hpf Urine Bacteria (Auto) (None Seen) 11/06/24 11/06/24 11/06/24 Range/Units 23:30 21:48 20:36 WBC (4.8-10.8) K/ul RBC (4.20-5.40) M/uL Hgb 9.1 L (12.0-16.0) g/dl Hct 29.0 L (37.0-47.0) % MCV (80.0-100.0) fL MCH (25.0-34.0) pg MCHC (32.0-36.0) g/dL RDW Std Deviation (36.4-46.3) fL RDW Coeff of Nury (11.5-14.5) % Plt Count (130-400) K/uL MPV (9.4-12.4) fL Immature Gran % (Auto) % Neut % (Auto) % Lymph % (Auto) % Rabun % (Auto) % Eos % (Auto) % Baso % (Auto) % Neut # (Auto) (1.40-6.50) K/uL Lymph # (Auto) (1.20-3.40) K/uL Rabun # (Auto) (0.11-0.59) K/uL Eos # (Auto) (0.00-0.50) K/uL Baso # (Auto) (0.00-0.20) K/uL Immature Gran # (Auto) (0.01-0.20) K/uL Sodium (136-145) mmol/L Potassium (3.5-5.1) mmol/L Chloride (98-107) mmol/L Carbon Dioxide (21-32) mmol/L Anion Gap (3-11) BUN (6-23) mg/dl Creatinine (0.6-1.2) mg/dl Est Cr Clr Drug Dosing ml/min eGFR BUN/Creatinine Ratio (10-20) Glucose (70-99(Fasting)) mg/dl POC Glucose 125 H (70-99) mg/dl Calcium (8.6-10.3) mg/dl Phosphorus (2.5-4.9) mg/dl Magnesium (1.7-2.4) mg/dl Urine Color Yellow Urine Appearance Clear (Clear) Urine pH 5.0 (4.5-7.5) Ur Specific Trail 1.018 (1.000-1.030) Urine Protein Negative (Negative) Urine Glucose (UA) Negative (Negative) Urine Ketones Trace H (Negative) Urine Blood Negative (Negative) Urine Nitrite Negative (Negative) Urine Bilirubin Negative (Negative) Urine Urobilinogen Negative (Negative) Ur Leukocyte Esterase 1+ H (Negative) Urine WBC (Auto) 6-10 H (0-5) /hpf Urine RBC (Auto) 0-2 (0-2) /hpf U Hyaline Cast (Auto) 3-5 H (0-2) /lpf U Epithel Cells (Auto) 0-2 (0-2) /hpf Urine Bacteria (Auto) None Seen (None Seen) Diagnostic Findings XR foot RT min 3V routine CLINICAL HISTORY: bruisin to great toe COMPARISON: None FINDINGS: There is an acute intra-articular mildly comminuted mildly displaced fracture proximally at the first proximal phalanx. There is mild cortical step- off and gap at the proximal articular surface of the first proximal phalanx. No other fracture or dislocation seen of the left foot. There are chronic soft tissue calcifications plantar to the calcaneus. IMPRESSION: Acute fracture first proximal phalanx. (1) Closed fracture of one or more phalanges of foot Encounter type: initial encounter Fracture alignment: displaced Laterality: left Phalanx: proximal Toe: great toe Qualified Code(s): S92.412A - Displaced fracture of proximal phalanx of left great toe, initial encounter for closed fracture
[2024-11-08 06:01] LABS: Basophils # (auto) 0.02 K/uL (0.00-0.20); Basophils % (auto) 0.2 %; Eosinophils # (auto) 0.07 K/uL (0.00-0.50); Eosinophils % (auto) 0.8 %; Hemoglobin 7.4 g/dl (12.0-16.0); Immature Granulocytes # (auto) 0.06 K/uL (0.01-0.20); Immature Granulocytes % (auto) 0.7 %; Lymphocytes # (auto) 1.06 K/uL (1.20-3.40); Lymphocytes % (auto) 12.2 %; Mean Corpuscular Hemoglobin 30.3 pg (25.0-34.0); Mean Corpuscular Hgb Conc 32.2 g/dL (32.0-36.0); Mean Corpuscular Volume 94.3 fL (80.0-100.0); Mean Platelet Volume 12.4 fL (9.4-12.4); Monocytes # (auto) 0.87 K/uL (0.11-0.59); Neutrophils % (auto) 76.1 %; Platelet Count 111 K/uL (130-400); RDW Coefficient of Variation 15.2 % (11.5-14.5); RDW Standard Deviation 52.9 fL (36.4-46.3); Red Blood Count 2.44 M/uL (4.20-5.40); White Blood Count 8.68 K/ul (4.8-10.8)
[2024-11-08 06:16] LABS: BUN Creatinine Ratio 25.6 (10-20); Calcium 8.6 mg/dl (8.6-10.3); Magnesium 2.2 mg/dl (1.7-2.4); Phosphorus 4.5 mg/dl (2.5-4.9); Potassium 4.4 mmol/L (3.5-5.1)
[2024-11-08 06:21] LABS: Polychromasia 1+
--- NOTE | 2024-11-08 07:48 | Critical Care Progress Note ---
Date of Service November 08, 2024 Assessment & Plan (1) Acute on chronic hypoxic respiratory failure: (2) ERIK (obstructive sleep apnea): (3) (HFpEF) heart failure with preserved ejection fraction: (4) Pulmonary edema: (5) Morbid obesity: (6) Nocturnal hypoxia: (7) SOB (shortness of breath): (8) Hypertension, accelerated: (9) Hyperlipidemia: (10) Recurrent falls: (11) Obesity hypoventilation syndrome: Plan Reason Critically Ill: 84-year-old female with a significant history of restrictive lung disease, chronic respiratory failure with hypoxia on 3 L at baseline, ERIK, CHF, CKD 3, and aortic stenosis who was intubated in the emergency department in the setting of respiratory failure. 24-hour events: Was successfully extubated last evening after discussion with patient and family. She does not wish to be reintubated nor have chest compressions. Her CODE STATUS was changed to DNR/DNI yesterday and reflection of her wishes. She is doing well on nasal cannula at this time. Recommendations NEURO - Encephalopathy improved. CARDIAC/VASCULAR - BP has improved since sedation removed. No further pressor requirement. Will remove stress of steroids and replacement of her home 5 mg prednisone. Continue midodrine for now. Continue midodrine RESPIRATORY - Obesity hypoventilation syndrome noncompliant with CPAP/BiPAP in the outpatient setting. Hypercarbic respiratory failure improved. She was successfully extubated and is doing well on room air and BiPAP. Will restart her home inhaler equivalent. GI/NUTRITION - Progress diet as tolerated. RENAL/LYTES -chronic kidney disease. Renal function improved. Continue to follow. Electrolytes, and acid-base status stable. Remains mildly fluid. Discontinue IV fluids -Vazquez catheter for now. d/c when appropriate. ENDO - glycemic control per protocol. Continue Synthroid now. HEME -mild decrease in hemoglobin and hematocrit this morning. No obvious evidence of acute blood loss. Follow-up H&H at 1200 ID -off antibiotics. Afebrile. Continue to follow clinically LINES/IV ACCESS - * PIVs x2 * Vazquez DVT PROPHYLAXIS - * Heparin SQ * SCDs Thank you for allowing us to participate in the care of this pleasant patient. The patient is stable for downgrade from the ICU at this time. Admission and Anticipated Discharge Date Admission Date: November 06, 2024 Supervising Physician Co-Signing Physician Notes Patient seen and examined. EMR reviewed. Discussed with bedside critical care nurse and on multidisciplinary rounds as well as with critical care SONIA. Agree with assessment plan as noted. The patient is doing better clinically. She is awake alert. She did use to positive airway pressure overnight. Would recommend that she continues to use CPAP/BiPAP on a nightly basis and consider outpatient follow-up with her pulmonary providers to discuss long-term management of obesity hypoventilation syndrome/sleep disordered breathing. Orthopedics consult pending given her knee issues. Continue bedrest until cleared by orthopedics. Patient's critical care issues have resolved. She is stable to transfer to the floor. Critical care will sign off. Feel free to contact us with questions or concerns Subjective Patient seen and evaluated at bedside. She had an uneventful night. She was successfully extubated yesterday and is on 4 L nasal cannula at this time. She offers no complaints of pain. She describes being shaky, but states that this has been an ongoing issue for her. Physical Exam Physical Exam: VITAL SIGNS - Vital signs and nursing notes were reviewed. GENERAL - 84-year-old female appearing her stated age who is in no acute distress. SKIN -developing ecchymosis noted to the LEFT knee area and LEFT great toe. HEAD - NC/AT. EYES - Sclera anicteric. EARS - No deformities of external structures noted on gross examination bilaterally. NOSE - Midline and without cyanosis. NECK - Supple to palpation. LUNGS - Breath sounds diminished at the bases bilaterally. CARDIAC - RRR with S1/S2. Loud systolic murmur appreciated to the LEFT-sided sternal border with radiation to the chest and neck area. ABDOMEN - Abdominal contour obese without pulsations or visible masses. BS normoactive all four quadrants. No tenderness, palpable masses, hepatosplenomegaly, or ascites noted. EXTREMITIES - Ecchymosis appreciated to the LEFT-sided anterior knee and base of the LEFT great toe. Unable to assess otherwise given sedation and recent paralytic. NEUROLOGIC -unable to initially assess as the patient had received paralytic just prior to arriving to the ICU. Results & Data Results & Data Vital Signs (Past 12 Hours) Vital Signs Temp Pulse Pulse Resp BP Pulse Ox O2 Del Method 11/08/24 06:06 75 20 93 11/08/24 06:00 116/70 11/08/24 05:57 76 20 92 11/08/24 05:45 84 20 91 Nasal Cannula 04/23/25 05:03 80 20 91 Nasal Cannula 11/08/24 05:00 139/59 L 11/08/24 05:00 139/59 L 11/08/24 05:00 139/59 L 11/08/24 04:48 36.8 C 80 22 93 11/08/24 04:30 77 20 93 11/08/24 04:09 75 19 92 11/08/24 04:00 142/55 H 11/08/24 04:00 142/55 H 11/08/24 04:00 142/55 H 11/08/24 03:57 75 19 93 11/08/24 03:36 74 18 92 11/08/24 03:03 75 14 85 L 11/08/24 03:00 131/63 11/08/24 02:21 75 16 90 11/08/24 02:00 130/69 11/08/24 02:00 130/69 11/08/24 02:00 130/69 11/08/24 02:00 71 14 11/08/24 01:30 76 16 89 L 11/08/24 01:00 130/66 11/08/24 01:00 75 20 92 11/08/24 00:36 74 20 91 11/08/24 00:03 76 17 93 11/08/24 00:00 120/63 11/08/24 00:00 120/63 11/08/24 00:00 120/63 11/08/24 00:00 120/63 11/07/24 23:57 76 19 93 11/07/24 23:42 73 20 92 11/07/24 23:31 79 22 94 11/07/24 23:03 81 23 92 11/07/24 23:00 37.2 C 144/63 H 11/07/24 22:51 79 20 92 11/07/24 22:33 80 23 93 11/07/24 22:09 83 19 92 11/07/24 21:33 80 20 90 BiPAP 11/07/24 21:20 Nasal Cannula 11/07/24 21:00 82 26 H 90 11/07/24 21:00 118/93 11/07/24 21:00 118/93 11/07/24 20:15 83 20 93 Nasal Cannula 11/07/24 20:09 36.9 C 81 22 89 L Nasal Cannula O2 Flow Rate FiO2 11/08/24 06:06 11/08/24 06:00 11/08/24 05:57 11/08/24 05:45 4 11/08/24 05:03 4 11/08/24 05:00 11/08/24 05:00 11/08/24 05:00 11/08/24 04:48 11/08/24 04:30 11/08/24 04:09 11/08/24 04:00 11/08/24 04:00 11/08/24 04:00 11/08/24 03:57 11/08/24 03:36 11/08/24 03:03 11/08/24 03:00 11/08/24 02:21 11/08/24 02:00 11/08/24 02:00 11/08/24 02:00 11/08/24 02:00 11/08/24 01:30 11/08/24 01:00 11/08/24 01:00 11/08/24 00:36 11/08/24 00:03 11/08/24 00:00 11/08/24 00:00 11/08/24 00:00 11/08/24 00:00 11/07/24 23:57 11/07/24 23:42 11/07/24 23:31 30 11/07/24 23:03 11/07/24 23:00 11/07/24 22:51 11/07/24 22:33 11/07/24 22:09 11/07/24 21:33 11/07/24 21:20 4 11/07/24 21:00 11/07/24 21:00 11/07/24 21:00 11/07/24 20:15 4 11/07/24 20:09 4 Coding Level of Care Code 82268 SUB INP/OBS CARE 2MIN Diagnoses Acute on chronic hypoxic respiratory failure J96.21 ERIK (obstructive sleep apnea) G47.33 Heart failure with preserved ejection fraction, unspecified HF chronicity I50.30 Heart failure chronicity: unspecified Pulmonary edema J81.1 Morbid obesity E66.01 Nocturnal hypoxia G47.34 SOB (shortness of breath) R06.02 Hypertension, accelerated I10 Mixed hyperlipidemia E78.2 Hyperlipidemia type: mixed hyperlipidemia Recurrent falls R29.6 Obesity hypoventilation syndrome E66.2 (3) (HFpEF) heart failure with preserved ejection fraction Heart failure chronicity: unspecified Qualified Code(s): I50.30 - Unspecified diastolic (congestive) heart failure (9) Hyperlipidemia Hyperlipidemia type: mixed hyperlipidemia Qualified Code(s): E78.2 - Mixed hyperlipidemia
[2024-11-08] MEDS ORDERED: NON-FORMULARY MEDICATION (Fluticasone-Umeclidin-Vilanter [Trelegy Ellipta] 200-62.5-25 mcg INH SCH (09:00)
[2024-11-08] MEDS: FUROSEMIDE 20 MG TAB PO SCH (09:27)
[2024-11-08] MEDS: PANTOprazole 40 MG TAB PO SCH (09:27)
[2024-11-08] MEDS: predniSONE 5 MG TAB PO SCH (09:27)
[2024-11-08] MEDS: UMECLIDINIUM BROMIDE 62.5MCG/BLISTER 7 PUFFS/INHALER INH SCH (09:42)
[2024-11-08] MEDS: FLUTICASONE/VILANTEROL 200/25MCG 14 PUFFS/INHALER INH SCH (09:42)
--- NOTE | 2024-11-08 10:28 | Orthopedic Progress Note ---
Date of Service November 08, 2024 Assessment & Plan (1) Closed fracture of one or more phalanges of foot: Plan: IMPRESSION: Left great toe proximal phalanx, intra-articular fracture, closed, comminuted, mildly displaced PLAN: LUCILA ISAK & SCDs BLE WBAT through heel in post-op shoe when able. Decubitus precations and waffle boots while in bed. Pain control per primary service. [facility] consult placed. They are going to see for her left knee and will also take over managing the left great toe fracture. Patient was informed of this and she appreciates being able to them. [facility] will sign off for now. Please call with questions. Continue care per primary service Admission and Anticipated Discharge Date Admission Date: November 06, 2024 Subjective Patient sitting up in her bed. Doing well. Denies any significant pain. States "I did something to my left knee". She has not been out of bed. Denies any pain at rest. But states that she is very bruised on her left side and has pain with movement of her left knee. Denies any significant pain of her left great toe. Physical Exam Musculoskeletal: Exam focused on her left foot: Minimal edema. A lot of ecchymosis around the great toe and into the base of all of her toes. She is able to actively do range of motion with full extension and flexion of the great toe. This movement does reproduce some mild discomfort at the IP joint. Nontender throughout the rest of her foot. Dorsalis pedis pulses 2+. Mild edema in the dorsum of her foot. No edema in the ankle. She is a lot of ecchymosis in the anterior love and left knee. Results & Data Vital Signs (Past 12 Hours) Vital Signs Temp Pulse Pulse Resp BP Pulse Ox O2 Del Method 11/08/24 08:29 89 16 90 Nasal Cannula 11/08/24 08:14 Nasal Cannula 11/08/24 08:14 80 11/08/24 08:00 Nasal Cannula 11/08/24 08:00 149/75 H 11/08/24 08:00 91 H 26 H 92 11/08/24 07:00 78 28 H 92 11/08/24 06:06 75 20 93 11/08/24 06:00 116/70 11/08/24 05:57 76 20 92 11/08/24 05:45 84 20 91 Nasal Cannula 11/08/24 05:03 80 20 91 Nasal Cannula 11/08/24 05:00 139/59 L 11/08/24 05:00 139/59 L 11/08/24 05:00 139/59 L 11/08/24 04:48 36.8 C 80 22 93 11/08/24 04:30 77 20 93 11/08/24 04:09 75 19 92 11/08/24 04:00 142/55 H 11/08/24 04:00 142/55 H 11/08/24 04:00 142/55 H 11/08/24 03:57 75 19 93 11/08/24 03:36 74 18 92 11/08/24 03:03 75 14 85 L 11/08/24 03:00 131/63 11/08/24 02:21 75 16 90 11/08/24 02:00 130/69 11/08/24 02:00 130/69 11/08/24 02:00 130/69 11/08/24 02:00 71 14 11/08/24 01:30 76 16 89 L 11/08/24 01:00 130/66 11/08/24 01:00 75 20 92 11/08/24 00:36 74 20 91 11/08/24 00:03 76 17 93 11/08/24 00:00 120/63 11/08/24 00:00 120/63 11/08/24 00:00 120/63 11/08/24 00:00 120/63 11/07/24 23:57 76 19 93 11/07/24 23:42 73 20 92 11/07/24 23:31 79 22 94 11/07/24 23:03 81 23 92 11/07/24 23:00 37.2 C 144/63 H 11/07/24 22:51 79 20 92 11/07/24 22:33 80 23 93 O2 Flow Rate FiO2 11/08/24 08:29 4 11/08/24 08:14 4 11/08/24 08:14 11/08/24 08:00 11/08/24 08:00 11/08/24 08:00 11/08/24 07:00 11/08/24 06:06 11/08/24 06:00 11/08/24 05:57 11/08/24 05:45 4 11/08/24 05:03 4 11/08/24 05:00 11/08/24 05:00 11/08/24 05:00 11/08/24 04:48 11/08/24 04:30 11/08/24 04:09 11/08/24 04:00 11/08/24 04:00 11/08/24 04:00 11/08/24 03:57 11/08/24 03:36 11/08/24 03:03 11/08/24 03:00 11/08/24 02:21 11/08/24 02:00 11/08/24 02:00 11/08/24 02:00 11/08/24 02:00 11/08/24 01:30 11/08/24 01:00 11/08/24 01:00 11/08/24 00:36 11/08/24 00:03 11/08/24 00:00 11/08/24 00:00 11/08/24 00:00 11/08/24 00:00 11/07/24 23:57 11/07/24 23:42 11/07/24 23:31 30 11/07/24 23:03 11/07/24 23:00 11/07/24 22:51 11/07/24 22:33 (1) Closed fracture of one or more phalanges of foot Encounter type: initial encounter Fracture alignment: displaced Laterality: left Phalanx: proximal Toe: great toe Qualified Code(s): S92.412A - Displaced fracture of proximal phalanx of left great toe, initial encounter for closed fracture
[2024-11-08 12:36] LABS: Hemoglobin 7.9 g/dl (12.0-16.0)
--- NOTE | 2024-11-08 13:26 | Hospitalist Progress Note ---
Date of Service November 08, 2024 Assessment & Plan (1) Acute on chronic respiratory failure with hypoxia and hypercapnia: (2) Obesity hypoventilation syndrome: (3) Acute kidney injury superimposed on CKD: (4) ERIK (obstructive sleep apnea): (5) Hypothyroidism: (6) Morbid obesity: Plan (1) Acute on chronic hypoxic respiratory failure: (2) Recurrent falls: (3) Hypotension: (4) Acute kidney injury superimposed on CKD: (5) Elevated troponin: (6) Obesity hypoventilation syndrome: (7) (HFpEF) heart failure with preserved ejection fraction: (8) Morbid obesity: (9) Hypothyroidism (acquired): Plan per admitting service notes This is an 84 y/o female with chronic hypoxic respiratory failure, on 3L of oxygen at baseline, 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 History obtained from pt's daughter - pt has had multiple falls over the last few days. Has been noncompliant with recommended CPAP and family is unsure that pt is using O2 correctly at night. 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 Florinef and midodrine started -will transition to PO tomorrow #YUNI on CKD - baseline creatinine appears to be 1.1-1.2, decreased urine output over last few days -creatinine improving #Anemia - new from prior admission, no clear source of blood loss - Check FOBT - PPI - Trend H&H #Right first phalanx fracture - Ortho consult - Pain control #Recurrent falls (new over past few days) - Fall precautions - PT/OT evaluation - patient would like to consider rehab or increased level of care such as assisted living at discharge, concerned about pt's ability to live alone safely I spent a total of 50 minutes in direct patient care, including [id number] time with the patient and/or family, reviewing medical records, ordering and reviewing diagnostic tests, and coordinating care with other healthcare providers. This time includes: history taking, physical examination, medical decision making, counseling, ECG interpretation, imaging interpretation, lab interpretation, orders, and education, excluding time spent in the performance of separately billed services. Admission and Anticipated Discharge Date Admission Date: November 06, 2024 Subjective Patient seen and examined at bedside. Patient looks better than chart would suggest. Patient states she is happy to be doing as well she is doing. She states would like to go to rehab post admission. Still feels a little short of breath but overall okay. Having a cough, encourage patient to cough up is much as possible. Review of Systems Review of Systems: CONSTITUTIONAL: fatigue, weakness EYES: Patient denies any visual symptoms. EARS, NOSE, AND THROAT: No difficulties with hearing. No symptoms of rhinitis or sore throat. CARDIOVASCULAR: Patient denies chest pains, palpitations, orthopnea and paroxysmal nocturnal dyspnea. RESPIRATORY: SOB, cough GI: No nausea, vomiting, diarrhea, constipation, abdominal pain, hematochezia or melena. : No urinary hesitancy or dribbling. No nocturia or urinary frequency. No abnormal urethral discharge. MUSCULOSKELETAL: No myalgias or arthralgias. NEUROLOGIC: No chronic headaches, no seizures. Patient denies numbness, tingling or weakness. PSYCHIATRIC: Patient denies problems with mood disturbance. No problems with anxiety. ENDOCRINE: No excessive urination or excessive thirst. DERMATOLOGIC: Patient denies any rashes or skin changes. Physical Exam Physical Exam: Gen: A&O 3 NAD, dusky appearance HEENT: NCAT, EOMI, not icteric. External ears normal. No rhinorrhea. Moist mucous membranes. Neck: Supple, full range of motion, no observable masses, No meningeal sign. Lungs: fair air movement bilaterally, trace rhonchi bilaterally CV: RRR, no edema. Abdomen: Soft, nondistended, No rebound tenderness. MSK: No joint swelling, no redness. Skin: No rashes, petechiae, lesions. Normal color per patient. Neuro: Normal Gait, Grossly intact. Psych: Appropriate for situation. Results & Data Results & Data Vital Signs (Past 12 Hours) Vital Signs Temp Pulse Pulse Resp BP BP Pulse Ox 04/23/25 13:10 36.5 C 85 20 121/70 91 11/08/24 08:29 89 16 90 11/08/24 08:14 11/08/24 08:14 80 11/08/24 08:00 11/08/24 08:00 149/75 H 11/08/24 08:00 91 H 26 H 92 11/08/24 07:00 78 28 H 92 11/08/24 06:06 75 20 93 11/08/24 06:00 116/70 11/08/24 05:57 76 20 92 11/08/24 05:45 84 20 91 11/08/24 05:03 80 20 91 11/08/24 05:00 139/59 L 11/08/24 05:00 139/59 L 11/08/24 05:00 139/59 L 11/08/24 04:48 36.8 C 80 22 93 11/08/24 04:30 77 20 93 11/08/24 04:09 75 19 92 11/08/24 04:00 142/55 H 11/08/24 04:00 142/55 H 11/08/24 04:00 142/55 H 11/08/24 03:57 75 19 93 11/08/24 03:36 74 18 92 11/08/24 03:03 75 14 85 L 11/08/24 03:00 131/63 11/08/24 02:21 75 16 90 11/08/24 02:00 130/69 11/08/24 02:00 130/69 11/08/24 02:00 130/69 11/08/24 02:00 71 14 11/08/24 01:30 76 16 89 L O2 Del Method O2 Flow Rate 11/08/24 13:10 Nasal Cannula 4 11/08/24 08:29 Nasal Cannula 4 11/08/24 08:14 Nasal Cannula 4 11/08/24 08:14 11/08/24 08:00 Nasal Cannula 11/08/24 08:00 11/08/24 08:00 11/08/24 07:00 11/08/24 06:06 11/08/24 06:00 11/08/24 05:57 11/08/24 05:45 Nasal Cannula 4 11/08/24 05:03 Nasal Cannula 4 11/08/24 05:00 11/08/24 05:00 11/08/24 05:00 11/08/24 04:48 11/08/24 04:30 11/08/24 04:09 11/08/24 04:00 11/08/24 04:00 11/08/24 04:00 11/08/24 03:57 11/08/24 03:36 11/08/24 03:03 11/08/24 03:00 11/08/24 02:21 11/08/24 02:00 11/08/24 02:00 11/08/24 02:00 11/08/24 02:00 11/08/24 01:30 Laboratory Results -personally reviewed, Hgb stable, creatinine downtrending Medications Administered Fluticasone/Vilanterol (Fluticasone/Vilanterol 200/25mcg 14 Puffs/Inhaler) 1 puffs INH DAILY DEBORAH Stop: 12/08/24 08:59 Last Admin: 11/08/24 09:42 Dose: Not Given Documented By: REAGAN Furosemide (Furosemide 20 Mg Tab) 20 mg PO QAM DEBORAH Stop: 12/08/24 08:59 Last Admin: 11/08/24 09:27 Dose: 20 mg Documented By: REAGAN Acetaminophen (Ofirmev) 1,000 mg in 100 mls @ 400 mls/hr IV Q12H PRN PRN Reason: moderate to severe pain Stop: 11/10/24 15:23 Last Infusion: 11/08/24 05:21 Dose: Infused Documented By: Admin: 11/08/24 05:06 Dose: 400 mls/hr Documented By: Infusion: 11/07/24 16:05 Dose: Infused Documented By: Admin: 11/07/24 15:43 Dose: 400 mls/hr Documented By: GPF Montelukast Sodium (Montelukast Sodium 10 Mg Tablet) 10 mg PO HS DEBORAH Stop: 12/06/24 20:59 Last Admin: 11/07/24 20:44 Dose: 10 mg Documented By: Admin: 11/06/24 21:58 Dose: 10 mg Documented By: ELDA Pantoprazole Sodium (Pantoprazole 40 Mg Tab) 40 mg PO DAILY DEBORAH Stop: 12/08/24 08:59 Last Admin: 11/08/24 09:27 Dose: 40 mg Documented By: REAGAN Prednisone (Prednisone 5 Mg Tab) 5 mg PO STEPHENIE DEBORAH Stop: 12/08/24 08:59 Last Admin: 11/08/24 09:27 Dose: 5 mg Documented By: REAGAN Pregabalin (Pregabalin 100 Mg Cap) 100 mg PO BID [facility] Stop: 12/06/24 20:59 Last Admin: 11/07/24 10:02 Dose: Not Given Documented By: Admin: 11/06/24 21:59 Dose: 100 mg Documented By: ELDA Umeclidinium Martin (Umeclidinium Martin 62.5mcg/Blister 7 Puffs/Inhaler) 1 puffs INH DAILY DEBORAH Stop: 12/08/24 08:59 Last Admin: 11/08/24 09:42 Dose: Not Given Documented By: REAGAN
[2024-11-08] MEDS: OPTIRAY 320 125ml IV ONE (17:06)
--- NOTE | 2024-11-08 18:49 | CT Scan Report ---
EXAM: CT abdomen pelvis wo/w con CLINICAL HISTORY: LUQ pain TECHNIQUE: Non-contrast and contrast-enhanced CT of the abdomen and pelvis was performed, with the following protocol: axial images, and reconstructed coronal and sagittal images. 115 ml optiray 320 was administered. One of the following dose reduction techniques was utilized for this exam: Automated exposure control, adjustment of the mA and/or kV according to patient size, and use of iterative reconstruction. DLP: 5153.48 mGy-cm, CTDI: 133.6 mGy. COMPARISON: Compared with the prior study dated 03/27/2023 FINDINGS: Abdomen: Liver: Normal in size, shape, and density. No focal lesions, cysts, or masses were identified. Gallbladder and Biliary System: The gallbladder is not visualized and may be surgically absent. Pancreas: Pancreatic head, body, and tail are visualized and appear normal in size and density. No pancreatic masses or calcifications were noted. Spleen: Normal in size, shape, and density. No splenic lesions or masses were identified. Kidneys and Adrenal Glands: There are bilateral renal cysts. Adrenal glands are unremarkable. Appendix: The appendix is not visualized; however, there is no evidence of inflammatory process in the right lower quadrant to suggest appendicitis. Pelvis: Urinary Bladder: Normal in contour and wall thickness. No intraluminal lesions. A Vazquez catheter is seen in the urinary bladder. Uterus: Not visualized may be surgically abscent. Ovaries: Not well visualized but no gross abnormalities noted. Vagina: Normal in contour and wall thickness. Cervix: No evidence of mass or abnormal thickening. Peritoneal and Retroperitoneal Structures: No free fluid or abnormal fluid collections were identified within the abdomen or pelvis. No lymphadenopathy was noted. Bowel: Umbilical hernia defect is noted, which contains a short loop of large bowel with surrounding fat stranding. The rest of the bowel is decompressed. Smaller paraumbilical hernia with omental fat within. There are multiple colonic diverticula without evidence of diverticulitis. Bones and Soft Tissues: Pelvic bones and soft tissues are unremarkable. No fractures or abnormal masses were identified. Degenerative changes are identified in the spine. Additinal findings: There are patchy opacities in the bilateral lower lungs likely of infectious etiology. Recommend clinical correlation. Small left sided pleural effusion is noted. IMPRESSION: 1. Umbilical hernia defect is noted, which contains a short loop of large bowel with surrounding fat stranding. The rest of the bowel is decompressed. Smaller paraumbilical hernia with omental fat within. 2. Multiple colonic diverticula without evidence of diverticulitis. 3. No significant interval changes. Electronically signed by Tong Barajas 11-08-2024 6:48 PM
[2024-11-08 19:58] LABS: Basophils # (auto) 0.02 K/uL (0.00-0.20); Basophils % (auto) 0.2 %; Eosinophils # (auto) 0.18 K/uL (0.00-0.50); Eosinophils % (auto) 2.2 %; Hematocrit (blood only) 23.4 % (37.0-47.0); Hemoglobin 7.4 g/dl (12.0-16.0); Immature Granulocytes # (auto) 0.08 K/uL (0.01-0.20); Lymphocytes # (auto) 1.14 K/uL (1.20-3.40); Lymphocytes % (auto) 13.9 %; Mean Corpuscular Hemoglobin 30.1 pg (25.0-34.0); Mean Corpuscular Hgb Conc 31.6 g/dL (32.0-36.0); Mean Corpuscular Volume 95.1 fL (80.0-100.0); Mean Platelet Volume 12.1 fL (9.4-12.4); Monocytes # (auto) 0.94 K/uL (0.11-0.59); Monocytes % (auto) 11.4 %; Neutrophils # (auto) 5.87 K/uL (1.40-6.50); Neutrophils % (auto) 71.3 %; Platelet Count 112 K/uL (130-400); RDW Coefficient of Variation 15.3 % (11.5-14.5); RDW Standard Deviation 53.1 fL (36.4-46.3); Red Blood Count 2.46 M/uL (4.20-5.40); White Blood Count 8.23 K/ul (4.8-10.8)
[2024-11-08 20:06] LABS: Albumin Globulin Ratio 1.3 (0.9-2); Albumin Level 3.6 gm/dl (3.4-5.0); BUN Creatinine Ratio 26.7 (10-20); Bilirubin,Total 0.6 mg/dl (0.2-1.0); Calcium 9.1 mg/dl (8.6-10.3); Creatinine Clr Calc Pharmacy 40.3 ml/min; Globulin 2.7 gm/dl (2.5-4.0); Potassium 4.3 mmol/L (3.5-5.1); Total Protein 6.3 gm/dl (6.0-8.3)
[2024-11-08] MEDS: MoRPHine SULFATE 2 MG/ML CARP IV STA (20:13)
[2024-11-08 20:25] LABS: Basophilic Stippling 1+; Polychromasia 1+
[2024-11-08 20:27] LABS: Partial Thromboplastin Ratio 1.1; Partial Thromboplastin Time 29 Seconds (21-31); Prothrombin Time 10.4 Seconds (9.0-12.0)
--- NOTE | 2024-11-08 21:07 | Surgery Consultation ---
<Statement entered by Mark Phillips, - 11/09/24 10:28> This case was discussed with the surgical PA. No acute surgical intervention, the hernia is not obstructing bowel. She is also not a surgical candidate for an elective hernia repair due to her current clinical status as well as her BMI. Date of Consultation November 08, 2024 Assessment & Plan (1) Hernia, ventral: I evaluated the patient in room 218 at the request of the hospitalist service. General surgery recommendations are as follows: At the bedside the patient was only complaining of some minor abdominal pain at the time of my initial visit I did attempt to reduce the patient's hernia but was unsuccessful Following my initial attempt to reduce the hernia, I opted to provide an ice pack to the tender area of the patient's abdomen and provide her with some intravenous pain medications. I reported back to bedside after allowing the pain medications time to take effect. I again tried to reduce the hernia without success. It should be noted that at the time of my second encounter with the patient when I entered room she was not complaining of any abdominal pain at that time. I did check repeat laboratories and the patient was noted to have no leukocytosis or elevated lactic acid level. Her kidney function had also improved I reviewed the CT scan with my attending physician, Dr. Zarco. Although the patient does have a large ventral hernia it did not appear as though she had any evidence of compromised bowel, and even though I was unable to successfully reduce the hernia was not felt that the patient required emergent surgical intervention. We will empirically make the patient n.p.o. at this time (she will be allowed to take medication with a small sip of water) I contacted the hospitalist service so they can order appropriate intravenous fluids I had a lengthy discussion with the patient at the bedside. She is concerned about the potential of undergoing any surgical procedure as she is high risk due to her underlying medical comorbidities. I did discuss with her as noted above that I do not feel she is in need of emergent surgical intervention at this time In addition to above, I did review her old CT scans and she was noted to have a ventral hernia on a CT scan from 2022 which appeared similar to the one performed today At the time of my most recent encounter with the patient she was noted to be normotensive without tachycardia or fever. Again her white blood cell count is normal and she does not have elevated lactic acid level or worsening acute kidney injury. She does not appear toxic at the time my exam and therefore I feel conservative measures are warranted at this time If the patient does develop any worsening abdominal pain, or nausea or vomiting which would suggest an obstructive process consideration be given to placing NG tube but did not feel that this modality is needed at this time Additional recommendations will be forthcoming based on her clinical course as unfolds History of Present Illness Reason for Consultation: Ventral hernia Attending Physician: Alvarez Huynh MD History of Present Illness This is a 84-year-old female who has been admitted to [facility] since 11/06/2024. Patient was admitted after suffering multiple falls at home. She was noted to have metabolic encephalopathy and was also suffering from acute on chronic hypoxemic respiratory failure as well as CO2 retention from obesity hypoventilation syndrome. Because of her respiratory issues she did require intubation/mechanical ventilation but was extubated yesterday which was 11/07/2024. General surgery was asked to evaluate the patient on 11/08/2024 secondary to abdominal pain. Patient notes that earlier today she suffered a coughing spell and since that time she began to have some abdominal pain that she described as an ache without radiation or modifying factors. She notes that since her abdominal pain began she has not had any fevers, shakes, or chills. She denies any nausea or vomiting. Patient notes that she has not has not passed any flatus or has not had a bowel movement since her pain began. Concerning oral intake she says she had some lunch today but did not feel like eating dinner this evening. She has been sipping on some liquids such as tea throughout the day. Since her abdominal pain began the primary service has ordered a CT scan of the abdomen pelvis which I independently reviewed. This showed the patient had what appeared to be a ventral/umbilical hernia defect containing a loop of large bowel with some surrounding fat stranding. There is also a small periumbilical hernia with omental fat noted within this hernia. Previous imaging that the patient had was reviewed and she has had a previous CT scan from March 27, 2023. On this study patient was noted to have a large ventral hernia containing a nonobstructed segment of transverse colon. Earlier today patient had labs which included a CBC were white blood cell count was noted to be normal. Her hemoglobin and hematocrit were 7.4 and 23.0. Her platelet count was 111,000. Chemistry profile showed sodium and potassium were normal and her BUN and creatinine were 43 and 1.6. Repeat laboratories have been obtained this evening and again her CBC revealed white blood cell count is normal. Her hemoglobin and hematocrit are 7.4 and 23.4. Her platelet count is 112,000. Coagulation studies are noted to be normal. Chemistry profile showed sodium and potassium are both normal. Her BUN and creatinine are actually improved at 39 and 1.4. Lactic acid level is nonelevated 0.7. There is no elevation of patient's LFTs. At the time of my interview patient was resting comfortably in bed and she did not appear to be in any distress Allergies Allergy/AdvReac Type Severity Reaction Status Date / Time azathioprine Allergy Intermediate HIVES Verified 03/27/23 13:47 gabapentin Allergy Intermediate hives Verified 03/27/23 13:47 hydroxychloroquine Allergy Intermediate HIVES Verified 03/27/23 13:47 ibuprofen Allergy Intermediate HIVES Verified 03/27/23 13:47 methotrexate Allergy Intermediate hives Verified 03/27/23 13:47 minocycline Allergy Intermediate Hives Verified 03/27/23 13:47 NSAIDS (Non-Steroidal Allergy Intermediate Hives Verified 03/27/23 13:47 Anti-Inflamma phenol Allergy Intermediate hives Verified 03/27/23 13:47 risedronate sodium Allergy Intermediate HIVES Verified 03/27/23 13:47 doxepin Allergy Mild HIVES Verified 03/27/23 13:47 leflunomide Allergy Mild HIVES Verified 03/27/23 13:47 sulfasalazine Allergy Mild HIVES Verified 03/27/23 13:47 Tetracyclines Allergy Mild HIVES Verified 03/27/23 13:47 hydromorphone AdvReac Intermediate hallucinate Verified 03/27/23 13:47 couldn't walk or talk teriparatide AdvReac Intermediate MALAISE, Verified 03/27/23 13:47 LOWER LEG EDEMA AMINOQUINOLINE Allergy Intermediate HIVES--PER Uncoded 03/27/23 13:47 GMG Home Medications Medication Instructions Recorded Confirmed Type albuterol sulfate 90 mcg/actuation 2 puff inhalation Q4 PRN Shortness 11/15/18 11/06/24 History aerosol inhaler (Ventolin HFA) Of Breath Or Wheezing duloxetine 30 mg capsule,delayed 30 mg PO QAM 11/15/18 11/06/24 History release melatonin 5 mg tablet 5 mg PO HS 11/15/18 11/06/24 History metoprolol tartrate 25 mg tablet 12.5 mg PO BID 11/15/18 11/06/24 History montelukast 10 mg tablet 10 mg PO HS 11/15/18 11/06/24 History (Singulair) allopurinol 100 mg tablet 200 mg PO QAM 03/21/22 11/06/24 History docusate sodium 100 mg capsule 100 mg PO BID 03/21/22 11/06/24 History iron,carbonyl 65 mg-vitamin C 125 1 tab PO 3XWK 03/21/22 11/06/24 History mg tablet,delayed release (Vitron-C) levothyroxine 150 mcg tablet 150 mcg PO DAILYBB 03/21/22 11/06/24 History omeprazole 40 mg capsule,delayed 40 mg PO QAM 03/21/22 11/06/24 History release prednisone 5 mg tablet 5 mg PO QAM 03/21/22 11/06/24 History ascorbic acid (vitamin C) 500 mg 500 mg PO QAM 03/27/23 11/06/24 History tablet (Vitamin C) atorvastatin 10 mg tablet 10 mg PO 3XWK 03/27/23 11/06/24 History sennosides 8.6 mg tablet (senna) 8.6 mg PO [facility] 03/27/23 11/06/24 History Lactobacillus acidophilus 250 2,000 mmu cells PO DAILY 07/22/24 11/06/24 History million cell capsule (Probiotic Acidophilus) fluticasone fur. 200 mcg-umeclid 1 ea inhalation QA 07/22/24 11/06/24 History 62.5 mcg-vilant 25 mcg inhalat.powder (Trelegy Ellipta) furosemide 20 mg tablet (Lasix) 20 mg PO QAM 07/22/24 11/06/24 History yskazpxo-lcx-avxlra 5 mg-zeaxanth 3 cap PO QAM 07/22/24 11/06/24 History 1 mg-bilberry 7.5 mg-herbal capsule (Macular Health Formula) amlodipine 10 mg tablet 10 mg PO DAILY #30 tabs 07/23/24 11/06/24 Rx lisinopril 40 mg tablet 40 mg PO DAILY #30 tabs 07/23/24 11/06/24 Rx pregabalin 100 mg capsule 100 mg PO BID 11/06/24 11/06/24 History Oxygen Home 11/08/24 11/08/24 History Patient History Medical History Asthma Gout Spinal stenosis GERD (gastroesophageal reflux disease) Deep vein thrombosis 2011 after knee replacement--no longer on blood thinners Bilateral cataracts Anxiety Chronic obstructive pulmonary disease On home oxygen therapy 2L hs n/c Surgical History History of total abdominal hysterectomy and bilateral salpingo-oophorectomy History of bilateral tubal ligation Status post correction of deviated nasal septum History of carpal tunnel release of both wrists History of arthroscopy of left knee History of total left knee replacement (TKR) History of bowel resection History of cholecystectomy History of colonoscopy History of esophagogastroduodenoscopy (EGD) History of tooth extraction all teeth removed History of tonsillectomy Family History Other Hypertension No family history of adverse response to anesthesia Social History Smoking Status: Former smoker Second Hand Exposure: No; Do You Dip or Chew Tobacco: No; Hx Alcohol Use: No Hx Substance Use: No Preferred Language: Croatian Communication Ability: Effective Engineering 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 Required: No Beliefs That Will Affect Care: None marital status: / Current Living Situation: Alone How many Children do You have: 5 Feels Safe at Home: Yes Assistive Devices: Walker Review of Systems Review of Systems: All systems reviewed & are unremarkable except as noted in HPI & below Physical Exam Constitutional: well developed, well nourished and + obese Eyes: no conjunctival abnormality ENMT: Ears: no hearing impairment and no external ear abnormality Mouth: no oropharynx abnormality Neck: trachea midline Respiratory: normal respiratory effort; no respiratory distress and no labored breathing Breath sounds are noted to be decreased at the bases Cardiovascular: Rate/Rhythm: regular rate and regular rhythm Vessels: dorsalis pedis pulses present and radial pulses present Gastrointestinal (Abdomen): Abdomen is rotund but soft and nondistended. There is no rebound tenderness or guarding. Patient had what appeared to be a palpable ventral hernia just to the right and inferior to the umbilicus and another area just superior to the umbilicus. There is no overlying skin changes or erythema. There is no crepitus in the soft tissue. There is no signs of peritonitis on exam. Musculoskeletal: Bilateral lower extremity edema noted. Skin: no rashes Neurologic: moves all extremities Psychiatric: A+Ox3, euthymic affect Results & Data Vital Signs (Past 12 Hours) Vital Signs Temp Pulse Pulse Resp BP Pulse Ox O2 Del Method 11/08/24 19:30 36.6 C 90 20 143/68 H 96 Nasal Cannula 11/08/24 15:43 36.4 C L 16 122/86 98 Nasal Cannula 11/08/24 15:16 75 11/08/24 14:46 Nasal Cannula 11/08/24 14:35 36.4 C L 81 22 141/79 H 95 Nasal Cannula 11/08/24 13:10 36.5 C 85 20 121/70 91 Nasal Cannula O2 Flow Rate 11/08/24 19:30 4 11/08/24 15:43 4 11/08/24 15:16 11/08/24 14:46 5 11/08/24 14:35 5 11/08/24 13:10 4 PG Care Time/CCT Total # of Minutes Spent Total Time Spent with Patient: Total time spent is greater than 50% in coordination of care (as documented) at patient's floor/unit and/or counseling patient: Coding Level of Care Code 79441 INT INP/OBS CARE 3/75MIN Diagnoses Hernia, ventral K43.9
[2024-11-08] MEDS: SODIUM CHLORIDE 0.9% 1,000 ML IV SCH (21:37)
[2024-11-09] MEDS: LEVOTHYROXINE SODIUM 150 MCG TABLET PO SCH (06:12)
[2024-11-09 06:37] LABS: Basophils # (auto) 0.02 K/uL (0.00-0.20); Basophils % (auto) 0.3 %; Eosinophils # (auto) 0.29 K/uL (0.00-0.50); Hematocrit (blood only) 24.4 % (37.0-47.0); Hemoglobin 7.7 g/dl (12.0-16.0); Immature Granulocytes # (auto) 0.05 K/uL (0.01-0.20); Immature Granulocytes % (auto) 0.9 %; Lymphocytes # (auto) 0.89 K/uL (1.20-3.40); Lymphocytes % (auto) 15.2 %; Mean Corpuscular Hemoglobin 30.6 pg (25.0-34.0); Mean Corpuscular Hgb Conc 31.6 g/dL (32.0-36.0); Mean Corpuscular Volume 96.8 fL (80.0-100.0); Mean Platelet Volume 12.2 fL (9.4-12.4); Monocytes # (auto) 0.64 K/uL (0.11-0.59); Neutrophils # (auto) 3.95 K/uL (1.40-6.50); Neutrophils % (auto) 67.6 %; Platelet Count 118 K/uL (130-400); RDW Coefficient of Variation 15.3 % (11.5-14.5); RDW Standard Deviation 53.9 fL (36.4-46.3); Red Blood Count 2.52 M/uL (4.20-5.40); White Blood Count 5.84 K/ul (4.8-10.8)
[2024-11-09 07:02] LABS: Calcium 8.9 mg/dl (8.6-10.3); Creatinine Clr Calc Pharmacy 46.3 ml/min; Magnesium 2.1 mg/dl (1.7-2.4); Potassium 4.5 mmol/L (3.5-5.1)
[2024-11-09 07:20] LABS: Polychromasia 1+
--- NOTE | 2024-11-09 08:01 | Surgery Progress Note ---
Date of Service November 09, 2024 Assessment & Plan (1) Hernia, ventral: Plan: -Patient states she has had no abdominal pain over night and denies any nausea or vomiting. If the patient does develop any of these symptoms could consider placing an NGT however this is not necessary at this time. -On exam she is again noted to have a ventral hernia at the right side of her abdomen. The hernia was reduced however does not stay reduced. The area is soft and nontender without signs of peritonitis. -Patient this morning states that she is unsure if she would want any surgical intervention at this time. -Patient may resume a diet from a surgical standpoint Admission and Anticipated Discharge Date Admission Date: November 06, 2024 Subjective Patient seen and evaluated this morning, only complaining of a cough this morning. She denies abdominal pain or any nausea or vomiting overnight Denies passing gas or BM. States her last BM was 2 days ago Afebrile this AM and WBC wnl Physical Exam Constitutional: WD/WN, vitals as above Respiratory: normal respiratory effort; no respiratory distress Cardiovascular: Rate/Rhythm: regular rate Gastrointestinal (Abdomen): Abdomen is rotund but soft and nondistended and is nontender to palpation. Ventral hernia noted on the right side of the abdomen inferior to the umbilicus that is soft and no overlying skin changes appreciated. Hernia unable to stay reduced however the area is nontender and there are no signs of peritonitis on exam. Musculoskeletal: b/l LE edema present and LLE with old appearing ecchymosis present Results & Data Vital Signs (Past 12 Hours) Vital Signs Temp Pulse Pulse Resp BP Pulse Ox O2 Del Method 11/09/24 07:46 36.4 C L 78 18 152/64 H 93 Nasal Cannula 11/09/24 03:00 75 15 98 11/09/24 02:53 36.7 C 75 20 127/58 L 98 Nasal Cannula 11/08/24 23:31 78 19 95 11/08/24 23:12 78 11/08/24 22:44 36.6 C 65 20 132/72 99 Nasal Cannula 11/08/24 20:00 Nasal Cannula O2 Flow Rate 11/09/24 07:46 4 11/09/24 03:00 4 11/09/24 02:53 4 11/08/24 23:31 3 11/08/24 23:12 11/08/24 22:44 4 11/08/24 20:00 4 PG Care Time/CCT Total # of Minutes Spent Total Time Spent with Patient: Total time spent is greater than 50% in coordination of care (as documented) at patient's floor/unit and/or counseling patient: Coding [place] [address] SUB INP/OBS CARE 08/12MIN Patient Type Established Medical Decision Making Straight Forward Diagnoses Hernia, ventral K43.9
[2024-11-09] MEDS: amLODIPine BESYLATE 5 MG TAB PO SCH (08:32)
[2024-11-09] MEDS: DULoxetine HCL 30 MG CAP PO SCH (08:32)
[2024-11-09] MEDS: allopurinoL 100 MG TAB PO SCH (08:33)
--- NOTE | 2024-11-09 11:18 | Orthopedic Consultation ---
Date of Consultation November 09, 2024 Assessment & Plan (1) Closed fracture of one or more phalanges of foot: (2) Acute knee pain: (3) Fall: (4) Acute metabolic encephalopathy: (5) Acute on chronic respiratory failure with hypoxia and hypercapnia: (6) Obesity hypoventilation syndrome: (7) Acute kidney injury superimposed on CKD: (8) Hypotension: (9) Recurrent falls: (10) Acute on chronic hypoxic respiratory failure: (11) Elevated troponin: (12) Rhinovirus infection: (13) Hypoxia: (14) Acute metabolic encephalopathy: (15) Hyperlipidemia: (16) Viral pneumonia: (17) Hypothyroidism (acquired): (18) Hypertension, accelerated: (19) Chronic gout: (20) Asthma with exacerbation: (21) Acute and chronic respiratory failure: (22) SOB (shortness of breath): (23) ERIK (obstructive sleep apnea): (24) Nocturnal hypoxia: (25) Morbid obesity: (26) Hypothyroidism: (27) Hypertension: (28) CKD (chronic kidney disease), stage III: (29) (HFpEF) heart failure with preserved ejection fraction: (30) Generalized weakness: (31) Depression: (32) Pulmonary edema: (33) Community acquired pneumonia: (34) Contusion of leg, right: Plan Kandi is a very medically complex, quite sick and morbidly obese 84-year-old female who initially presented to the hospital for frequent falls. Upon initial presentation to the hospital, she did require intubation. She has subsequently been extubated and is back on the floor now. Orthopedics was initially consulted (Dr Mcmanus) for her knee and her toe. Dr Mcmanus did reach out to me and asked me to take over the patient's care. On my evaluation, the patient has sustained a closed, traumatic, displaced, intra-articular fracture of the base of the proximal phalanx of the left great toe. I do long discussion patient already the nature of this injury. We discussed in detail the pathoanatomy, pathophysiology, treatment options. Ordinarily, a fracture such as this 1 with significant intra-articular extension and would necessitate surgical intervention.. However, given a closer examination of the patient's entire medical state, I do not believe that the risks of surgical intervention outweigh the benefits of surgical intervention for this. The patient does agree and wishes to avoid surgery for this. She is currently resting in offload boots while she is in bed, but I would encourage the use of a postoperative shoe or other stiff soled boot/shoe in order to help control her pain when she gets out of bed. She can bear weight as tolerated, but does risk fracture discplacement. Additionally, I did explain to the patient that with or without surgery she is at a very high risk of posttraumatic osteoarthrosis due to the intra-articular nature of this fracture and she expressed understanding. With regards to the patient's knee, her x-rays do not demonstrate any acute fractures or acute loosening. She does have ecchymosis and bruising about her knee consistent with a contusion sustained during one of her falls. I would recommend physical therapy for strengthening and range of motion of the knee and outpatient follow-up with Dr. Desai. Patient to follow-up with me as an outpatient for her toe and should resume care with her operative surgery for her left knee. 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 En route she was given lorazepam 1 mg IV, which resulted in worsening of her respiratory status. In the ED, she was placed on BiPAP after VBG showed pH of 7.19, CO2 79. She was eventually intubated. Pt lives alone but family is increasingly concerned that this is no longer safe for patient. They noted pt has had increased falls over the last few days including one Wednesday requiring EMS for lift assist. Pt declined transport to the ED at that time. Family notes that pt is noncompliant with CPAP for ERIK and often not wearing O2 correctly at night. Pt has become progressively more weak over the last few days as well. She has not had any vomiting or diarrhea to their knowledge. She did have some nasal congestion (mild) last week but no fevers that they are aware of. She has been compliant with medications but they have noted she is urinating less over the last few days even with taking her furosemide and drinking "lots" of water. No complaints of dysuria. She does follow with pulmonology for multifactorial dyspnea - moderate to severe /AR, large hiatal hernia, restrictive lung disease (likely due to hiatal hernia/BMI). She is due for repeat ECHO in December to f/u on aortic stenosis. The orthopedics team (Dr Mcmanus) was initially consulted on this patient as during one of the fall she appears to have sustained a fracture of her left great toe, and additionally she was noted to have some left knee pain. The patient has a history of left total knee arthroplasty done by Dr. Desai. Patient notes that she has not followed up with him for many years and has never really had any trouble with her knee until the recent falls. States she fell directly onto her knee and has been having some discomfort in the knee since that time. With regards the patient's current care, she has been extubated and she is now on the floor. On my evaluation, the patient was resting comfortably in bed and upon awakening noted that her knee pain is improving. She has been able to move it and states that this is not as painful as it used to be. Allergies Allergy/AdvReac Type Severity Reaction Status Date / Time azathioprine Allergy Intermediate HIVES Verified 03/27/23 13:47 gabapentin Allergy Intermediate hives Verified 03/27/23 13:47 hydroxychloroquine Allergy Intermediate HIVES Verified 03/27/23 13:47 ibuprofen Allergy Intermediate HIVES Verified 03/27/23 13:47 methotrexate Allergy Intermediate hives Verified 03/27/23 13:47 minocycline Allergy Intermediate Hives Verified 03/27/23 13:47 NSAIDS (Non-Steroidal Allergy Intermediate Hives Verified 03/27/23 13:47 Anti-Inflamma phenol Allergy Intermediate hives Verified 03/27/23 13:47 risedronate sodium Allergy Intermediate HIVES Verified 03/27/23 13:47 doxepin Allergy Mild HIVES Verified 03/27/23 13:47 leflunomide Allergy Mild HIVES Verified 03/27/23 13:47 sulfasalazine Allergy Mild HIVES Verified 03/27/23 13:47 Tetracyclines Allergy Mild HIVES Verified 03/27/23 13:47 hydromorphone AdvReac Intermediate hallucinate Verified 03/27/23 13:47 couldn't walk or talk teriparatide AdvReac Intermediate MALAISE, Verified 03/27/23 13:47 LOWER LEG EDEMA AMINOQUINOLINE Allergy Intermediate HIVES--PER Uncoded 03/27/23 13:47 GMG Home Medications Medication Instructions Recorded Confirmed Type albuterol sulfate 90 mcg/actuation 2 puff inhalation Q4 PRN Shortness 11/15/18 11/06/24 History aerosol inhaler (Ventolin HFA) Of Breath Or Wheezing duloxetine 30 mg capsule,delayed 30 mg PO QAM 11/15/18 11/06/24 History release melatonin 5 mg tablet 5 mg PO HS 11/15/18 11/06/24 History metoprolol tartrate 25 mg tablet 12.5 mg PO BID 11/15/18 11/06/24 History montelukast 10 mg tablet 10 mg PO HS 11/15/18 11/06/24 History (Singulair) allopurinol 100 mg tablet 200 mg PO QAM 03/21/22 11/06/24 History docusate sodium 100 mg capsule 100 mg PO BID 03/21/22 11/06/24 History iron,carbonyl 65 mg-vitamin C 125 1 tab PO 3XWK 03/21/22 11/06/24 History mg tablet,delayed release (Vitron-C) levothyroxine 150 mcg tablet 150 mcg PO DAILYBB 03/21/22 11/06/24 History omeprazole 40 mg capsule,delayed 40 mg PO QAM 03/21/22 11/06/24 History release prednisone 5 mg tablet 5 mg PO QAM 03/21/22 11/06/24 History ascorbic acid (vitamin C) 500 mg 500 mg PO QAM 03/27/23 11/06/24 History tablet (Vitamin C) atorvastatin 10 mg tablet 10 mg PO 3XWK 03/27/23 11/06/24 History sennosides 8.6 mg tablet (senna) 8.6 mg PO AMHS 03/27/23 11/06/24 History Lactobacillus acidophilus 250 2,000 mmu cells PO DAILY 07/22/24 11/06/24 History million cell capsule (Probiotic Acidophilus) fluticasone fur. 200 mcg-umeclid 1 ea inhalation QAM 07/22/24 11/06/24 History 62.5 mcg-vilant 25 mcg inhalat.powder (Trelegy Ellipta) furosemide 20 mg tablet (Lasix) 20 mg PO QAM 07/22/24 11/06/24 History mbbppwva-uaq-rdszwi 5 mg-zeaxanth 3 cap PO QAM 07/22/24 11/06/24 History 1 mg-bilberry 7.5 mg-herbal capsule (Macular Health Formula) amlodipine 10 mg tablet 10 mg PO DAILY #30 tabs 07/23/24 11/06/24 Rx lisinopril 40 mg tablet 40 mg PO DAILY #30 tabs 07/23/24 11/06/24 Rx pregabalin 100 mg capsule 100 mg PO BID 11/06/24 11/06/24 History Oxygen Home 11/08/24 11/08/24 History Patient History Medical History Asthma Gout Spinal stenosis GERD (gastroesophageal reflux disease) Deep vein thrombosis 2011 after knee replacement--no longer on blood thinners Bilateral cataracts Anxiety Chronic obstructive pulmonary disease On home oxygen therapy 2L hs n/c Surgical History History of total abdominal hysterectomy and bilateral salpingo-oophorectomy History of bilateral tubal ligation Status post correction of deviated nasal septum History of carpal tunnel release of both wrists History of arthroscopy of left knee History of total left knee replacement (TKR) History of bowel resection History of cholecystectomy History of colonoscopy History of esophagogastroduodenoscopy (EGD) History of tooth extraction all teeth removed History of tonsillectomy Family History Other Hypertension No family history of adverse response to anesthesia Social History Smoking Status: Former smoker Second Hand Exposure: No; Do You Dip or Chew Tobacco: No; Hx Alcohol Use: No Hx Substance Use: No Preferred Language: Salvadorean Communication Ability: Effective Passenger Service Representative Required: No Beliefs That Will Affect Care: None marital status: / Current Living Situation: Alone How many Children do You have: 5 Feels Safe at Home: Yes Assistive Devices: Walker Review of Systems Review of Systems: All systems reviewed & are unremarkable except as noted in HPI & below Physical Exam Physical Exam: Left lower extremity: Significant soft tissue swelling noted about the left knee and the left foot with diffuse ecchymosis. No open wounds appreciated. Anterior knee wound is well-healed. No open wounds on the toe, either. Patient is tender to palpation about her great toe and also diffusely tender to palpation about her knee. She does demonstrate the ability to perform active range of motion from 0 to 90 degrees and notes that this is not significantly painful. Pulses are nonpalpable in her foot but her foot is warm well-perfused. Results & Data Vital Signs (Past 12 Hours) Vital Signs Temp Pulse Pulse Resp BP Pulse Ox O2 Del Method 11/09/24 09:42 72 11/09/24 08:00 Nasal Cannula 11/09/24 07:46 36.4 C L 78 18 152/64 H 93 Nasal Cannula 11/09/24 03:00 75 15 98 11/09/24 02:53 36.7 C 75 20 127/58 L 98 Nasal Cannula 11/08/24 23:31 78 19 95 O2 Flow Rate 11/09/24 09:42 11/09/24 08:00 11/09/24 07:46 4 11/09/24 03:00 4 11/09/24 02:53 4 11/08/24 23:31 3 Diagnostic Findings X-rays left foot and left knee were personally interpreted and reviewed. These demonstrate an intra-articular displaced dye punch type fracture of the base of the proximal phalanx of the left great toe. No acute osseous abnormalities are appreciated about the total knee arthroplasty. No acute loosening is noted either (1) Closed fracture of one or more phalanges of foot Encounter type: initial encounter Fracture alignment: displaced Laterality: left Phalanx: proximal Toe: great toe Qualified Code(s): S92.412A - Displaced fracture of proximal phalanx of left great toe, initial encounter for closed fracture (2) Acute knee pain Laterality: left Qualified Code(s): M25.562 - Pain in left knee (3) Fall Encounter type: initial encounter Qualified Code(s): W19.XXXA - Unspecified fall, initial encounter (8) Hypotension Hypotension type: unspecified hypotension type Qualified Code(s): I95.9 - Hypotension, unspecified (14) Hyperlipidemia Hyperlipidemia type: mixed hyperlipidemia Qualified Code(s): E78.2 - Mixed hyperlipidemia (18) Chronic gout Gout site: unspecified site Gout etiology: idiopathic Presence of tophus: without tophus Qualified Code(s): M1A.00X0 - Idiopathic chronic gout, unspecified site, without tophus (tophi) (19) Asthma with exacerbation Asthma severity: mild Asthma persistence: persistent Qualified Code(s): J45.31 - Mild persistent asthma with (acute) exacerbation (20) Acute and chronic respiratory failure Respiratory failure complication: hypoxia and hypercapnia Qualified Code(s): J96.21 - Acute and chronic respiratory failure with hypoxia; J96.22 - Acute and chronic respiratory failure with hypercapnia (28) (HFpEF) heart failure with preserved ejection fraction Heart failure chronicity: unspecified Qualified Code(s): I50.30 - Unspecified diastolic (congestive) heart failure
--- NOTE | 2024-11-09 17:35 | Hospitalist Progress Note ---
Date of Service November 09, 2024 Assessment & Plan (1) Acute on chronic respiratory failure with hypoxia and hypercapnia: (2) Obesity hypoventilation syndrome: (3) Acute kidney injury superimposed on CKD: (4) ERIK (obstructive sleep apnea): (5) Hypothyroidism: (6) Morbid obesity: Plan (1) Acute on chronic hypoxic respiratory failure: (2) Recurrent falls: (3) Hypotension: (4) Acute kidney injury superimposed on CKD: (5) Elevated troponin: (6) Obesity hypoventilation syndrome: (7) (HFpEF) heart failure with preserved ejection fraction: (8) Morbid obesity: (9) Hypothyroidism (acquired): Plan per admitting service notes This is an 84 y/o female with chronic hypoxic respiratory failure, on 3L of oxygen at baseline, 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 History obtained from pt's daughter - pt has had multiple falls over the last few days. Has been noncompliant with recommended CPAP and family is unsure that pt is using O2 correctly at night. #Acute on chronic hypoxemic respiratory failure #CO2 retention/Obesity hypoventilation syndrome #Moderate Aortic Stenosis/Moderate to Severe Aortic Insufficiency #HFpEF Metabolic encephalopathy, resolved -has done well post extubation, on 4L -DNRDNI, patient open to CPAP/Bipap if needed but does not want reintubated -noted to have some pulm HTN and elevated RV pressure on echo along with diastolic failure -encourage IS and flutter valve -hold abx at this time #Possible Adrenal Insufficiency -hydrocortisone IV , p.o. Florinef and midodrine #YUNI on CKD - baseline creatinine appears to be 1.1-1.2, decreased urine output over last few days -creatinine improving #Anemia - new from prior admission, no clear source of blood loss - Check FOBT - PPI - Trend H&H #Right first phalanx fracture - Ortho consult - Pain control #Recurrent falls - Fall precautions - PT/OT evaluation - patient would like to consider rehab or increased level of care such as assisted living at discharge, concerned about pt's ability to live alone safely -discussed case with patients daughter who appreciated the update I spent a total of 50 minutes in direct patient care, including [id number] time with the patient and/or family, reviewing medical records, ordering and reviewing diagnostic tests, and coordinating care with other healthcare providers. This time includes: history taking, physical examination, medical decision making, counseling, ECG interpretation, imaging interpretation, lab interpretation, orders, and education, excluding time spent in the performance of separately billed services. Admission and Anticipated Discharge Date Admission Date: November 06, 2024 Subjective Patient seen and examined at bedside. Patient doing okay today. Feels better than yesterday. States she is willing to do rehab to get stronger. Review of Systems Review of Systems: CONSTITUTIONAL: fatigue, weakness EYES: Patient denies any visual symptoms. EARS, NOSE, AND THROAT: No difficulties with hearing. No symptoms of rhinitis or sore throat. CARDIOVASCULAR: Patient denies chest pains, palpitations, orthopnea and paroxysmal nocturnal dyspnea. RESPIRATORY: SOB, cough GI: No nausea, vomiting, diarrhea, constipation, abdominal pain, hematochezia or melena. : No urinary hesitancy or dribbling. No nocturia or urinary frequency. No abnormal urethral discharge. MUSCULOSKELETAL: No myalgias or arthralgias. NEUROLOGIC: No chronic headaches, no seizures. Patient denies numbness, tingling or weakness. PSYCHIATRIC: Patient denies problems with mood disturbance. No problems with anxiety. ENDOCRINE: No excessive urination or excessive thirst. DERMATOLOGIC: Patient denies any rashes or skin changes. Physical Exam Physical Exam: Gen: A&O 3 NAD, better appearance today HEENT: NCAT, EOMI, not icteric. External ears normal. No rhinorrhea. Moist mucous membranes. Neck: Supple, full range of motion, no observable masses, No meningeal sign. Lungs: fair air movement bilaterally, trace rhonchi bilaterally CV: RRR, no edema. Abdomen: Soft, nondistended, No rebound tenderness. MSK: No joint swelling, no redness. Skin: No rashes, petechiae, lesions. Normal color per patient. Neuro: Normal Gait, Grossly intact. Psych: Appropriate for situation. Results & Data Results & Data Vital Signs (Past 12 Hours) Vital Signs Temp Pulse Pulse Resp BP Pulse Ox O2 Del Method 11/09/24 15:58 36.7 C 77 17 146/70 H 90 Nasal Cannula 11/09/24 11:23 36.5 C 83 17 136/72 90 Nasal Cannula 11/09/24 09:42 72 11/09/24 08:00 Nasal Cannula 11/09/24 07:46 36.4 C L 78 18 152/64 H 93 Nasal Cannula O2 Flow Rate 11/09/24 15:58 4 11/09/24 11:23 4 11/09/24 09:42 11/09/24 08:00 11/09/24 07:46 4 Laboratory Results -personally reviewed, Hgb stable, creatinine downtrending Diagnostic Findings Abdomen/Pelvis CT 11/08/24 16:31 EXAM: CT abdomen pelvis wo/w con CLINICAL HISTORY: LUQ pain TECHNIQUE: Non-contrast and contrast-enhanced CT of the abdomen and pelvis was performed, with the following protocol: axial images, and reconstructed coronal and sagittal images. 115 ml optiray 320 was administered. One of the following dose reduction techniques was utilized for this exam: Automated exposure control, adjustment of the mA and/or kV according to patient size, and use of iterative reconstruction. DLP: 5153.48 mGy-cm, CTDI: 133.6 mGy. COMPARISON: Compared with the prior study dated 03/27/2023 FINDINGS: Abdomen: Liver: Normal in size, shape, and density. No focal lesions, cysts, or masses were identified. Gallbladder and Biliary System: The gallbladder is not visualized and may be surgically absent. Pancreas: Pancreatic head, body, and tail are visualized and appear normal in size and density. No pancreatic masses or calcifications were noted. Spleen: Normal in size, shape, and density. No splenic lesions or masses were identified. Kidneys and Adrenal Glands: There are bilateral renal cysts. Adrenal glands are unremarkable. Appendix: The appendix is not visualized; however, there is no evidence of inflammatory process in the right lower quadrant to suggest appendicitis. Pelvis: Urinary Bladder: Normal in contour and wall thickness. No intraluminal lesions. A Vazquez catheter is seen in the urinary bladder. Uterus: Not visualized may be surgically abscent. Ovaries: Not well visualized but no gross abnormalities noted. Vagina: Normal in contour and wall thickness. Cervix: No evidence of mass or abnormal thickening. Peritoneal and Retroperitoneal Structures: No free fluid or abnormal fluid collections were identified within the abdomen or pelvis. No lymphadenopathy was noted. Bowel: Umbilical hernia defect is noted, which contains a short loop of large bowel with surrounding fat stranding. The rest of the bowel is decompressed. Smaller paraumbilical hernia with omental fat within. There are multiple colonic diverticula without evidence of diverticulitis. Bones and Soft Tissues: Pelvic bones and soft tissues are unremarkable. No fractures or abnormal masses were identified. Degenerative changes are identified in the spine. Additinal findings: There are patchy opacities in the bilateral lower lungs likely of infectious etiology. Recommend clinical correlation. Small left sided pleural effusion is noted. IMPRESSION: 1. Umbilical hernia defect is noted, which contains a short loop of large bowel with surrounding fat stranding. The rest of the bowel is decompressed. Smaller paraumbilical hernia with omental fat within. 2. Multiple colonic diverticula without evidence of diverticulitis. 3. No significant interval changes. Electronically signed by Tong Barajas 11-08-2024 6:48 PM -personally reviewed and discussed with surgery service, noted umbilical hernia with possible incarceration Medications Administered Allopurinol (Allopurinol 100 Mg Tab) 200 mg PO QAM [facility] Stop: 12/09/24 08:59 Last Admin: 11/09/24 08:33 Dose: 200 mg Documented By: DAVID Amlodipine Besylate (Amlodipine Besylate 5 Mg Tab) 10 mg PO DAILY DEBORAH Stop: 12/09/24 08:59 Last Admin: 11/09/24 08:32 Dose: 10 mg Documented By: DAVID Duloxetine HCl (Duloxetine Hcl 30 Mg Cap) 30 mg PO QAM DEBORAH Stop: 12/09/24 08:59 Last Admin: 11/09/24 08:32 Dose: 30 mg Documented By: DAVID Fluticasone/Vilanterol (Fluticasone/Vilanterol 200/25mcg 14 Puffs/Inhaler) 1 puffs INH DAILY DEBORAH Stop: 12/08/24 08:59 Last Admin: 11/09/24 08:37 Dose: 1 puffs Documented By: Admin: 11/08/24 09:42 Dose: Not Given Documented By: REAGAN Furosemide (Furosemide 20 Mg Tab) 20 mg PO QAM DEBORAH Stop: 12/08/24 08:59 Last Admin: 11/09/24 08:32 Dose: 20 mg Documented By: Admin: 11/08/24 09:27 Dose: 20 mg Documented By: REAGAN Acetaminophen (Ofirmev) 1,000 mg in 100 mls @ 400 mls/hr IV Q12H PRN PRN Reason: moderate to severe pain Stop: 11/10/24 15:23 Last Infusion: 11/08/24 20:21 Dose: Infused Documented By: Admin: 11/08/24 20:06 Dose: 400 mls/hr Documented By: Infusion: 11/08/24 05:21 Dose: Infused Documented By: Admin: 11/08/24 05:06 Dose: 400 mls/hr Documented By: Infusion: 11/07/24 16:05 Dose: Infused Documented By: Admin: 11/07/24 15:43 Dose: 400 mls/hr Documented By: DARLENE Levothyroxine Sodium (Levothyroxine Sodium 150 Mcg Tablet) 150 mcg PO DAILYBB DEBORAH Stop: 12/09/24 06:29 Last Admin: 11/09/24 06:12 Dose: 150 mcg Documented By: SHREE Montelukast Sodium (Montelukast Sodium 10 Mg Tablet) 10 mg PO HS DEBORAH Stop: 12/06/24 20:59 Last Admin: 11/08/24 21:19 Dose: 10 mg Documented By: Admin: 11/07/24 20:44 Dose: 10 mg Documented By: Admin: 11/06/24 21:58 Dose: 10 mg Documented By: ELDA Pantoprazole Sodium (Pantoprazole 40 Mg Tab) 40 mg PO DAILY DEBORAH Stop: 12/08/24 08:59 Last Admin: 11/09/24 08:32 Dose: 40 mg Documented By: Admin: 11/08/24 09:27 Dose: 40 mg Documented By: REAGAN Prednisone (Prednisone 5 Mg Tab) 5 mg PO QA DEBORAH Stop: 12/08/24 08:59 Last Admin: 11/09/24 08:33 Dose: 5 mg Documented By: Admin: 11/08/24 09:27 Dose: 5 mg Documented By: REAGAN Pregabalin (Pregabalin 100 Mg Cap) 100 mg PO BID DEBORAH Stop: 12/06/24 20:59 Last Admin: 11/09/24 08:36 Dose: 100 mg Documented By: Admin: 11/08/24 20:42 Dose: 100 mg Documented By: Admin: 11/07/24 10:02 Dose: Not Given Documented By: Admin: 11/06/24 21:59 Dose: 100 mg Documented By: ELDA Umeclidinium [place] (Umeclidinium [place] 62.5mcg/Blister 7 Puffs/Inhaler) 1 puffs INH DAILY DEBORAH Stop: 12/08/24 08:59 Last Admin: 11/09/24 08:37 Dose: 1 puffs Documented By: Admin: 11/08/24 09:42 Dose: Not Given Documented By: REAGAN
[2024-11-09] MEDS: ACETAMINOPHEN 500 MG TAB PO STA (22:44)
[2024-11-10 07:20] LABS: Hematocrit (blood only) 25.2 % (37.0-47.0); Hemoglobin 7.9 g/dl (12.0-16.0); Mean Corpuscular Hemoglobin 30.2 pg (25.0-34.0); Mean Corpuscular Hgb Conc 31.3 g/dL (32.0-36.0); Mean Corpuscular Volume 96.2 fL (80.0-100.0); Mean Platelet Volume 11.9 fL (9.4-12.4); Platelet Count 129 K/uL (130-400); RDW Standard Deviation 52.3 fL (36.4-46.3); Red Blood Count 2.62 M/uL (4.20-5.40); White Blood Count 6.63 K/ul (4.8-10.8)
[2024-11-10 07:48] LABS: BUN Creatinine Ratio 24.1 (10-20); Calcium 9.4 mg/dl (8.6-10.3); Creatinine Clr Calc Pharmacy 54.4 ml/min; Potassium 4.3 mmol/L (3.5-5.1)
[2024-11-10 12:04] VITALS: BP 163/70; PULSE 69; RESP 18; TEMP 97.7; O2SAT 93
[2024-11-10] MEDS ORDERED: ROCURONIUM BROMIDE 10 MG/ML 5 ML VIAL IV ONE (16:04)
--- NOTE | 2024-11-10 16:40 | Discharge Summary ---
Discharge Summary Date of Service November 10, 2024 Principal Dx & Hospital Course #1 = Principal Diagnosis (1) Acute on chronic respiratory failure with hypoxia and hypercapnia: (2) Obesity hypoventilation syndrome: (3) Acute kidney injury superimposed on CKD: (4) ERIK (obstructive sleep apnea): (5) Hypothyroidism: (6) Morbid obesity: Plan (1) Acute on chronic hypoxic respiratory failure: (2) Recurrent falls: (3) Hypotension: (4) Acute kidney injury superimposed on CKD: (5) Elevated troponin: (6) Obesity hypoventilation syndrome: (7) (HFpEF) heart failure with preserved ejection fraction: (8) Morbid obesity: (9) Hypothyroidism (acquired): Plan per admitting service notes This is an 84 y/o female with chronic hypoxic respiratory failure, on 3L of oxygen at baseline, 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 History obtained from pt's daughter - pt has had multiple falls over the last few days. Has been noncompliant with recommended CPAP and family is unsure that pt is using O2 correctly at night. #Acute on chronic hypoxemic respiratory failure #CO2 retention/Obesity hypoventilation syndrome #Moderate Aortic Stenosis/Moderate to Severe Aortic Insufficiency #HFpEF Metabolic encephalopathy, resolved -has done well post extubation, on 4L -DNRDNI, patient open to CPAP/Bipap if needed but does not want reintubated -noted to have some pulm HTN and elevated RV pressure on echo along with diastolic failure -encourage IS and flutter valve -hold abx at this time -discharge to SNF to get stronger, can consider transition to hospice if no desire to return to hospital #Possible Adrenal Insufficiency -hydrocortisone IV , p.o. 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 In ED, noted to be struggling with Bipap, intubated, admitted to ICU. In ICU failed initial weaning trial, family decided on compassionate extubation, patient extubated and survived. Back to close to baseline. ON 11/10/2024 patient medically stable for discharge to SNF. To do: [ ] if declines, can consider transition to hospice care Medication Changes From Visit -see below Admission HPI Per Admitting Provider This is an 84 y/o female with chronic hypoxic respiratory failure, on 3L of oxygen at baseline, 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 En route she was given lorazepam 1 mg IV, which resulted in worsening of her respiratory status. In the ED, she was placed on BiPAP after VBG showed pH of 7.19, CO2 79. Currently, she is on BiPAP and still lethargic. She will answer yes/no questions with grunts but otherwise provides minimal history. Additional history was obtained by review of her outpatient records in [facility] and from her daughter (Emily) via phone. Pt lives alone but family is increasingly concerned that this is no longer safe for patient. They noted pt has had increased falls over the last few days including one Wednesday requiring EMS for lift assist around 3 am. Pt declined transport to the ED at that time. Family notes that pt is noncompliant with CPAP for ERIK and often not wearing O2 correctly at night. Pt has become progressively more weak over the last few days as well. She has not had any vomiting or diarrhea to their knowledge. She did have some nasal congestion (mild) last week but no fevers that they are aware of. She has been compliant with medications but they have noted she is urinating less over the last few days even with taking her furosemide and drinking "lots" of water. No complaints of dysuria. She does follow with pulmonology for multifactorial dyspnea - moderate to severe /AR, large hiatal hernia, restrictive lung disease (likely due to hiatal hernia/BMI). She is due for repeat ECHO in December to f/u on aortic stenosis. ECHO 06/29/24 - severely increased (concentric) LV wall thickness, normal LV wall motion, LVEF 65-69%, mildly abnormal (grade I) diastolic function, moderately calcified aortic valve, moderate AoV stenosis, moderate to severe AoI, severe calcification of the posterior mitral valve annulus with restricted posterior mitral valve leaflet mobility. Discharge Exam Gen: A&O 3 NAD, better appearance today HEENT: NCAT, EOMI, not icteric. External ears normal. No rhinorrhea. Moist mucous membranes. Neck: Supple, full range of motion, no observable masses, No meningeal sign. Lungs: fair air movement bilaterally, trace rhonchi bilaterally CV: RRR, no edema. Abdomen: Soft, nondistended, No rebound tenderness. MSK: No joint swelling, no redness. Skin: No rashes, petechiae, lesions. Normal color per patient. Neuro: Normal Gait, Grossly intact. Psych: Appropriate for situation. Updated Medication List Medication Instructions Recorded Confirmed Type albuterol sulfate 90 mcg/actuation 2 puff inhalation Q4 PRN Shortness 11/15/18 11/06/24 History aerosol inhaler (Ventolin HFA) Of Breath Or Wheezing duloxetine 30 mg capsule,delayed 30 mg PO QAM 11/15/18 11/06/24 History release melatonin 5 mg tablet 5 mg PO HS 11/15/18 11/06/24 History metoprolol tartrate 25 mg tablet 12.5 mg PO BID 11/15/18 11/06/24 History montelukast 10 mg tablet 10 mg PO HS 11/15/18 11/06/24 History (Singulair) allopurinol 100 mg tablet 200 mg PO QAM 03/21/22 11/06/24 History levothyroxine 150 mcg tablet 150 mcg PO DAILYBB 03/21/22 11/06/24 History omeprazole 40 mg capsule,delayed 40 mg PO QAM 03/21/22 11/06/24 History release prednisone 5 mg tablet 5 mg PO QAM 03/21/22 11/06/24 History atorvastatin 10 mg tablet 10 mg PO 3XWK 03/27/23 11/06/24 History sennosides 8.6 mg tablet (senna) 8.6 mg PO AMHS 03/27/23 11/06/24 History fluticasone fur. 200 mcg-umeclid 1 ea inhalation QAM 07/22/24 11/06/24 History 62.5 mcg-vilant 25 mcg inhalat.powder (Trelegy Ellipta) furosemide 20 mg tablet (Lasix) 20 mg PO QAM 07/22/24 11/06/24 History ruexunku-bpt-iypvvo 5 mg-zeaxanth 3 cap PO QAM 07/22/24 11/06/24 History 1 mg-bilberry 7.5 mg-herbal capsule ([employer] Formula) amlodipine 10 mg tablet 10 mg PO DAILY #30 tabs 07/23/24 11/06/24 Rx lisinopril 40 mg tablet 40 mg PO DAILY #30 tabs 07/23/24 11/06/24 Rx pregabalin 100 mg capsule 100 mg PO BID 11/06/24 11/06/24 History Oxygen Home 11/08/24 11/08/24 History Hospital Stay Data Consultations 11/06/24 09:52 ED Decision to Admit Stat 11/06/24 13:48 Consult Grapple [employer] Leader Routine 11/07/24 15:26 Consult Orthopedic Surgery Routine 11/08/24 19:07 Consult General Surgery Routine Diagnostic Imagining Performed 11/06/24 11:02 CT chest diagnostic wo con Stat 11/06/24 11:32 CT cervical spine wo con Stat CT head/brain wo con Stat 11/08/24 16:31 CT abdomen pelvis wo/w con Urgent Pending Results Patient Have Any Pending Studies at Discharge: No Discharge Instructions Given to Patient (Per Discharging Provider) 1. Please follow up with PCP and pulmonology as prescribed. 2. If patient declines and does not want to come to hospital, can transition to comfort care at facility. Total Time Total Time Spent Total Time Spent (In Minutes): I spent a total of 35 minutes in direct patient care, including [id number] time with the patient and/or family, reviewing medical records, ordering and reviewing diagnostic tests, and coordinating care with other healthcare providers. This time includes: history taking, physical examination, medical decision making, counseling, ECG interpretation, imaging interpretation, lab interpretation, orders, and education, excluding time spent in the performance of separately billed services.
== END 2024-11-10 16:05 | DRG 208 ==
LOC: ED 08:17 → 1E 10:19 → SUATTDRO 10:19 → 1E 13:45 → 2S 11-08 14:31